=== PATIENT | male | born 1955 | race Caucasian/White ===

== ENCOUNTER 2021-07-10 10:59 | Emergency (ER) | payer MEDICARE, MEDICAID, SELFPAY ==
--- NOTE | ~2021-07-10 | XR_ITS ---
EXAMINATION: XR CHEST CLINICAL INFORMATION: Fevers and weakness COMPARISON: April 06, 2020 TECHNIQUE: AP portable view of the chest was obtained. FINDINGS: Left lung base is partially obscured due to large body habitus. There is no evidence of acute parenchymal disease, pneumothorax, or pleural effusion. Heart normal size. No evidence of pulmonary edema. 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 XR/XR chest 1V IMPRESSION: No definite acute parenchymal disease identified.
--- NOTE | ~2021-07-10 | CT_ITS ---
EXAMINATION: CT HEAD WITHOUT CONTRAST CLINICAL INFORMATION: Fall, hit head. COMPARISON: None TECHNIQUE: Contiguous axial imaging was performed from the skull base to vertex without intravenous administration of contrast. This CT examination was performed using dose optimization techniques as appropriate, variously including the following: *Automated exposure control *Adjustment of mA and/or kV according to patient size (this includes techniques or standardized protocols for targeted exams where dose is matched to indication/reason for exam; i.e. extremities or head) *Use of iterative reconstruction technique DLP: 729 mGy-cm FINDINGS: There is no evidence of acute intracranial hemorrhage or territorial infarction. No abnormal mass effect or midline shift is seen. King to white matter differentiation is well preserved. No extra-axial fluid collections are identified. The ventricles are normal in size. There is no abnormal attenuation within the brain parenchyma. The osseous structures and soft tissues are normal. The mastoid air cells and visualized portions of the paranasal sinuses are well aerated. CT/CT head/brain wo con IMPRESSION: No acute intracranial process seen.
[2021-07-10 11:05] VITALS: BP 136/82; BP 137/72; PULSE 86; PULSE 99; RESP 20; TEMP 36.6; O2SAT 96; O2SAT 98; BMI 43.2
--- NOTE | 2021-07-10 12:03 | ECG_ITS ---
Test Reason : WEAKNESS Blood Pressure : / mmHG Vent. Rate : 092 BPM Atrial Rate : 092 BPM P-R Int : 130 ms QRS Dur : 090 ms QT Int : 390 ms P-R-T Axes : 016 -12 -17 degrees QTc Int : 482 ms Normal sinus rhythm Intra-ventricular conduction delay Minimal voltage criteria for LVH, may be normal variant ( R in aVL ) Abnormal ECG When compared with ECG of 06-APR-2020 17:45, No significant change was found Referred By: Cora Deng Electronically Signed By:AYLIN RODRIGUES MD
--- NOTE | 2021-07-10 12:10 | ED.GENADULT ---
HPI - General Adult General Chief complaint: General Medical Stated complaint: malaise Time Seen by Provider: 07/10/21 12:03 Source: patient Mode of arrival: ambulatory Limitations: altered mental status and other History of Present Illness HPI narrative: 65-year-old male pmhx epilepsy, hyperparathyroidism of renal origin, anemia, GERD, orthostatic hypotension, frequent falls, cognitive decline, brought into the ambulance by EMS coming from [facility]. [facility] concerned that the patient appeared to be more confused than his baseline since this a.m. He also states that he has been complaining of nausea and lightheadedness when attempting to change positions from lying in bed to sitting up. They also state he is unable to complete tasks. A states that this started today and has been worsening throughout the day. According to the report that they sent over, he states that they have observed abdominal pain, abdominal tenderness, nausea, vomiting and diarrhea. They report no changes in his medication. He is not on anticoagulation. He is not on any other hypoglycemic medications or insulin. Patient is a full code. Patient appears to not be a great historian, he states his only complaint is he is not peeing as much as usual. He denies abdominal pain, nausea, vomiting, weakness, dizziness, diarrhea, chest pain, shortness of breath, fevers, chills. He states he is not sure why he is here and he would like to go back home. MD complaint: altered mental status Onset (ago): unknown Relieving factors: none Exacerbating factors: none Associated symptoms: denies other symptoms Treatments prior to arrival: none Related Data Home Medications Medication Instructions Recorded Confirmed albuterol sulfate 90 mcg/actuation 2 puff INHALATION Q4H PRN 07/10/21 07/10/21 aerosol inhaler aluminum-mag hydroxide-simethicone 30 ml PO Q4H PRN 07/10/21 07/10/21 200 mg-200 mg-20 mg/5 mL oral susp ascorbic acid (vitamin C) 500 mg 500 mg PO DAILY 07/10/21 07/10/21 tablet (Vitamin C) calcitriol 0.25 mcg capsule 0.25 mcg PO TUFR 07/10/21 07/10/21 clomipramine 50 mg capsule 100 mg PO BEDTIME 07/10/21 07/10/21 clozapine 50 mg tablet 50 mg PO DAILY 07/10/21 07/10/21 clozapine 50 mg tablet 150 mg PO BEDTIME 07/10/21 07/10/21 docusate sodium 100 mg tablet 200 mg PO DAILY 07/10/21 07/10/21 escitalopram oxalate 10 mg tablet 10 mg PO DAILY 07/10/21 07/10/21 fenofibrate nanocrystallized 145 1 tab PO DAILY 07/10/21 07/10/21 mg tablet ferrous sulfate 325 mg (65 mg 325 mg PO DAILY 07/10/21 07/10/21 iron) tablet fludrocortisone 0.1 mg tablet 0.2 mg PO DAILY 07/10/21 07/10/21 gabapentin 300 mg capsule 300 mg PO TID 07/10/21 07/10/21 guaifenesin 100 mg/5 mL oral liquid 200 mg PO Q4H PRN 07/10/21 07/10/21 loratadine 10 mg tablet 10 mg PO DAILY 07/10/21 07/10/21 midodrine 10 mg tablet 20 mg PO BID 07/10/21 07/10/21 milk thistle 240 mg PO TID 07/10/21 07/10/21 multivitamin 1 tab PO DAILY 07/10/21 07/10/21 omeprazole 20 mg tablet,delayed 20 mg PO DAILY 07/10/21 07/10/21 release pramipexole 1 mg tablet 1 mg PO DAILY 07/10/21 07/10/21 propranolol 10 mg tablet 10 mg PO BID 07/10/21 07/10/21 risperidone 0.25 mg tablet 0.25 mg PO DAILY 07/10/21 07/10/21 sennosides 8.6 mg tablet (senna) 8.6 mg PO DAILY PRN 07/10/21 07/10/21 Allergies Allergy/AdvReac Type Severity Reaction Status Date / Time NSAIDS (Non-Steroidal Allergy Unknown UNKNOWN Unverified 06/06/20 17:20 Anti-Inflamma [NSAIDS (NON-STEROIDAL ANTI-INFLAMMA] Review of Systems Review of Systems: Yes Unobtainable due to mental status PMFSH Past Medical History Source: old records reviewed and nursing notes reviewed Medical History TBI (traumatic brain injury) Social History Social History Alcohol intake: never Patient Tobacco Use Status: Former Tobacco user Smoked in Last 30 Days: No Use of substances other than those prescribed or required for medical reasons: No Advance Directives: Yes Advance Directives on File: Yes Advance Directives Date on File: 07/10/21 Physical Exam Vital Signs: Vital Signs: Last Vital Signs Temp 98.9 F 07/10/21 15:35 Pulse 96 07/10/21 15:35 Resp 17 07/10/21 15:35 BP 148/80 H 07/10/21 15:35 Pulse Ox 95 07/10/21 15:35 Body Mass Index 43.2 Appearance: Alert. Oriented X3. No acute distress. Head: atrauamtic, normocephalic Eyes: Pupils pinpoint equal, round and non reactive to light ENT: Pharynx normal. Neck: Normal inspection. Neck supple. CVS: Normal heart rate and rhythm. Pulses normal. Respiratory: No respiratory distress. Breath sounds normal. Abdomen: Soft and nontender. +BS x4 Skin: Skin warm and dry. Normal skin color. Normal skin turgor. No rashes. Extremities: No lower extremity edema. Neuro: Oriented to person not to time or sitution. No motor deficit. No sensory deficit. Course Course Course Narrative: 65-year-old male brought into the emergency department via EMS from [facility] with concerns of pyrexia, and altered mentation. They state that they feel as though the patient is confused and unable to follow commands. Upon physical examination patient is alert to person, but not to situation, or time. He states he feels well, and he wants to leave. His only complaint is that he is not peeing like usual. But he is unable to elaborate. Pupils are equal pain point round, and not reactive to light bilaterally. Lungs are clear to auscultation. S1 and S2 appreciated free of murmurs. Patient is afebrile at this time. He appears well, in is in no distress. Plan at this time is to obtain EKG, bladder scan, chest x-ray, BMP, CBC, liver, magnesium, UA, COVID. Reevaluation(s) Reevaluation #1: Bladder scan 249, this time there is no need for straight catheterization. Will wait to see if the patient can void on his own. After speaking to patient's provider from [facility], he states that he is worried about his head, it was reported to him that given had fallen, and hit his head. This had not been documented in the paper work which she arrived with. At this time a CT noncontrast of the head will be ordered to rule out ICH. Time: 13:00 Reevaluation #2: Patient noted to have a baseline anemia, BUN, CR, ALT,AST all elevated which appear to be chronic in nature. He is COVID negative. Chest x-ray shows no acute findings. Urine and CT are pending at this time. Patient's offers no complaints, he feels well, he appears to be in good spirits. He is resting comfortably on the exam table. Time: 13:56 Reevaluation #3: CT scan is unremarkable. Urinalysis shows no signs of infection. He did require straight catheterization, only 250 cc in the bladder but he did not urinate after few hours. Will plan to discharge back to [facility] with monitoring of urine output, and p.r.n. straight catheterization. Will give him referral to Urology for further evaluation. Will hold off on Flomax for now. Dr. Wood aware. Stable for discharge back to [facility]. Medical Decision Making Lab Data Result diagrams: 07/10/21 12:25 07/10/21 12:25 Labs: Lab Results 07/10/21 07/10/21 07/10/21 Range/Units 12:18 12:25 12:25 WBC 7.4 (4.8-10.8) X10*3/uL RBC 4.31 L (4.60-5.80) X10*6/uL Hgb 12.6 L (14.0-18.0) g/dl Hct 38.9 L (42-52) % MCV 90.3 (80-98) fL MCH 29.2 (27.0-33.0) pg MCHC 32.4 (31.0-36.0) g/dl RDW 13.2 (11.0-16.0) % Plt Count 146 L (160-400) X10*3/uL MPV 9.2 L (9.4-12.4) fL Immature Gran % (Auto) 0.3 (0.0-0.4) % Neut % (Auto) 66.2 (45-73) % Lymph % (Auto) 19.4 L (20-40) % [place] % (Auto) 9.3 (2-11) % Eos % (Auto) 4.5 H (0-4) % Baso % (Auto) 0.3 (0-2) % Lymph # (Auto) 1.4 (1.2-4.9) X10*3/uL Preble # (Auto) 0.7 (0.1-1.2) X10*3/uL Eos # (Auto) 0.3 (0.0-0.4) X10*3/uL Baso # (Auto) 0.0 (0.0-0.2) X10*3/uL Abs Immat Gran (auto) 0.02 (0.00-0.03) X10*3/uL Absolute Neuts (auto) 4.9 (2.0-8.3) X10*3/uL Absolute Nucleated RBC 0.000 (0.0-0.012) X10*3/uL Nucleated RBC % (auto) 0.0 (0.0-0.2) /100WBC Sodium 140 (135-145) mmol/L Potassium 4.2 (3.3-5.1) mmol/L Chloride 111 H (96-108) mmol/L Carbon Dioxide 23 (22-29) mmol/L Anion Gap 10 L (12-20) BUN 30 H (9-16) mg/dL Creatinine 1.84 H (0.5-1.4) mg/dL Estim Creat Clear Calc 48.2 Estimated GFR 37 Random Glucose 111 (60-115) mg/dL Calcium 8.8 (8.4-10.2) mg/dL Magnesium 1.8 (1.6-2.6) mg/dL Total Bilirubin 0.6 (0.0-1.0) mg/dL Direct Bilirubin 0.4 (0.0-0.5) mg/dL AST 53 H (5-37) U/L ALT 50 H (0-40) U/L Alkaline Phosphatase 66 (39-117) U/L Total Protein 6.4 L (6.5-8.0) g/dL Albumin 3.2 L (3.5-5.0) g/dL Urine Color Urine Appearance Urine pH (5.0-8.0) Ur Specific [place] (1.005-1.025) Urine Protein (NEG-TRACE) MG/DL Urine Glucose (UA) (NEG) MG/DL Urine Ketones (NEG) MG/DL Urine Blood (NEG) Urine Nitrite (NEG) Ur Leukocyte Esterase (NEG) COVID-19 (EVELYN) Negative (Negative) COVID-19 Clin Com See Note 07/10/21 Range/Units 15:33 WBC (4.8-10.8) X10*3/uL RBC (4.60-5.80) X10*6/uL Hgb (14.0-18.0) g/dl Hct (42-52) % MCV (80-98) fL MCH (27.0-33.0) pg MCHC (31.0-36.0) g/dl RDW (11.0-16.0) % Plt Count (160-400) X10*3/uL MPV (9.4-12.4) fL Immature Gran % (Auto) (0.0-0.4) % Neut % (Auto) (45-73) % Lymph % (Auto) (20-40) % [place] % (Auto) (2-11) % Eos % (Auto) (0-4) % Baso % (Auto) (0-2) % Lymph # (Auto) (1.2-4.9) X10*3/uL Preble # (Auto) (0.1-1.2) X10*3/uL Eos # (Auto) (0.0-0.4) X10*3/uL Baso # (Auto) (0.0-0.2) X10*3/uL Abs Immat Gran (auto) (0.00-0.03) X10*3/uL Absolute Neuts (auto) (2.0-8.3) X10*3/uL Absolute Nucleated RBC (0.0-0.012) X10*3/uL Nucleated RBC % (auto) (0.0-0.2) /100WBC Sodium (135-145) mmol/L Potassium (3.3-5.1) mmol/L Chloride (96-108) mmol/L Carbon Dioxide (22-29) mmol/L Anion Gap (12-20) BUN (9-16) mg/dL Creatinine (0.5-1.4) mg/dL Estim Creat Clear Calc Estimated GFR Random Glucose (60-115) mg/dL Calcium (8.4-10.2) mg/dL Magnesium (1.6-2.6) mg/dL Total Bilirubin (0.0-1.0) mg/dL Direct Bilirubin (0.0-0.5) mg/dL AST (5-37) U/L ALT (0-40) U/L Alkaline Phosphatase (39-117) U/L Total Protein (6.5-8.0) g/dL Albumin (3.5-5.0) g/dL Urine Color YELLOW Urine Appearance CLEAR Urine pH 6.0 (5.0-8.0) Ur Specific [place] 1.015 (1.005-1.025) Urine Protein NEG (NEG-TRACE) MG/DL Urine Glucose (UA) NEG (NEG) MG/DL Urine Ketones NEG (NEG) MG/DL Urine Blood NEG (NEG) Urine Nitrite NEG (NEG) Ur Leukocyte Esterase NEG (NEG) COVID-19 (EVELYN) (Negative) COVID-19 Clin Com ECG Data Attestation: I personally reviewed and interpreted this ECG as follows: Prior ECG tracings: available for review Interpretation: Ventricular rate of 92, OR interval normal, normal QRS, prolongued QT normal QTC. EKG shows normal sinus rhythm, with prolonged QT. No ST elevations, no T-wave inversions. No signs of acute ischemia. EKG similar to one on 04/06/2020 no acute changes. Discharge Plan Discharge Clinical Impression: Acute urinary retention Fall Qualifiers: Encounter type: initial encounter Qualified Code(s): W19.XXXA - Unspecified fall, initial encounter Patient Disposition: er [facility] Instructions: Urinary Retention in Men (ED), Fall Prevention for Older Adults (ED) Additional Instructions: Your lab workup today was unremarkable. Your urinalysis did not showing any evidence of infection Your head CT was normal. Recommend monitoring your urine output, if no urine output in 6-8 hours and you are uncomfortable, recommend straight catheterization by nursing at [facility]. Recommend following up with Urology for further evaluation - name and number below. Follow up with your doctor within 1 week If you develop new or worsening symptoms call 911 or come back to the ER for further evaluation. Prescriptions: No Action multivitamin Tablet 1 tab PO DAILY RF: 0 pramipexole 1 mg Tablet 1 mg PO DAILY RF: 0 sennosides [senna] 8.6 mg Tablet 8.6 mg PO DAILY PRN (Reason: Constipation) RF: 0 risperidone 0.25 mg Tablet 0.25 mg PO DAILY RF: 0 guaifenesin [Robitussin Chest Congestion] 100 mg/5 mL Liquid 200 mg PO Q4H PRN (Reason: Cough) RF: 0 propranolol 10 mg Tablet 10 mg PO BID RF: 0 ascorbic acid (vitamin C) [Vitamin C] 500 mg Tablet 500 mg PO DAILY RF: 0 ferrous sulfate 325 mg (65 mg iron) Tablet 325 mg PO DAILY RF: 0 gabapentin 300 mg Capsule 300 mg PO TID RF: 0 alum-mag hydroxide-simeth [Rulox] 200-200-20 mg/5 mL Suspension 30 ml PO Q4H PRN (Reason: GI UPSET) RF: 0 clomipramine 50 mg capsule 100 mg PO BEDTIME RF: 0 albuterol sulfate 90 mcg/actuation Hfa Aerosol Inhaler 2 puff INHALATION Q4H PRN (Reason: Wheezing) RF: 0 fludrocortisone 0.1 mg Tablet 0.2 mg PO DAILY RF: 0 calcitriol 0.25 mcg capsule 0.25 mcg PO TUFR RF: 0 docusate sodium 100 mg Tablet 200 mg PO DAILY RF: 0 loratadine 10 mg Tablet 10 mg PO DAILY RF: 0 midodrine 10 mg Tablet 20 mg PO BID RF: 0 escitalopram oxalate 10 mg Tablet 10 mg PO DAILY RF: 0 clozapine 50 mg tablet 150 mg PO BEDTIME RF: 0 clozapine 50 mg tablet 50 mg PO DAILY RF: 0 fenofibrate nanocrystallized 145 mg tablet 1 tab PO DAILY RF: 0 omeprazole 20 mg Tablet,Delayed Release (Dr/Ec) 20 mg PO DAILY RF: 0 milk thistle 240 mg PO TID RF: 0 Referrals: Jimeenz Castillo MD [Physician] - 2 days (urinary retention)
[2021-07-10 12:30] LABS: MANUAL DIFF FLAG NO
--- NOTE | 2021-07-10 12:32 | PC.NURSE ---
Bladder scanned for 249. PA aware. Per PA await for pt to urinate for sample. No need for straight cath at this time.
[2021-07-10 12:33] LABS: Basophils Percent Auto 0.3 % (0-2); Eosinophils Absolute Auto 0.3 X10*3/uL (0.0-0.4); Eosinophils Percent Auto 4.5 % (0-4); Hematocrit 38.9 % (42-52); Hemoglobin 12.6 g/dl (14.0-18.0); Imm Gran Abs Auto 0.02 X10*3/uL (0.00-0.03); Imm Gran Pct Auto 0.3 % (0.0-0.4); Lymphocytes Absolute Auto 1.4 X10*3/uL (1.2-4.9); Lymphocytes Percent Auto 19.4 % (20-40); Mean Corpuscular HGB Conc 32.4 g/dl (31.0-36.0); Mean Corpuscular Hemoglobin 29.2 pg (27.0-33.0); Mean Corpuscular Volume 90.3 fL (80-98); Mean Platelet Volume 9.2 fL (9.4-12.4); Monocytes Absolute Auto 0.7 X10*3/uL (0.1-1.2); Monocytes Percent Auto 9.3 % (2-11); Neutrophils Absolute Auto 4.9 X10*3/uL (2.0-8.3); Neutrophils Percent Auto 66.2 % (45-73); Platelet Count 146 X10*3/uL (160-400); Red Blood Count 4.31 X10*6/uL (4.60-5.80); Red Cell Distribution Width 13.2 % (11.0-16.0); White Blood Count 7.4 X10*3/uL (4.8-10.8)
[2021-07-10 12:51] LABS: Alanine Aminotransferase 50 U/L (0-40); Albumin Level 3.2 g/dL (3.5-5.0); Alkaline Phosphatase 66 U/L (39-117); Anion Gap 10 (12-20); Aspartate Amino Transferase 53 U/L (5-37); Bilirubin Direct 0.4 mg/dL (0.0-0.5); Bilirubin Total 0.6 mg/dL (0.0-1.0); Blood Urea Nitrogen 30 mg/dL (9-16); Calcium 8.8 mg/dL (8.4-10.2); Carbon Dioxide 23 mmol/L (22-29); Chloride 111 mmol/L (96-108); Creatinine Clr Calc Pharmacy 48.2; Estimated Glomerular Filt Rate 37; Glucose Random 111 mg/dL (60-115); Magnesium 1.8 mg/dL (1.6-2.6); Potassium 4.2 mmol/L (3.3-5.1); Sodium 140 mmol/L (135-145); Total Protein 6.4 g/dL (6.5-8.0)
[2021-07-10 12:56] LABS: COVID-19 Test Negative (Negative)
--- NOTE | 2021-07-10 13:42 | PHA.MEDREC ---
Pharmacy Consult ? Medication Reconciliation Pharmacy has completed the medication reconciliation. There are no remarkable issues for provider's attention. Patient came from [facility] with a medication list. Palak frost, AmauryD
[2021-07-10 15:35] VITALS: BP 148/80; PULSE 96; RESP 17; TEMP 37.2; O2SAT 95
[2021-07-10 15:45] LABS: Appearance Urine CLEAR; Color Urine YELLOW; Glucose Urine UA NEG (NEG); Leukocyte Esterase Urine NEG (NEG); Nitrite Urine NEG (NEG); Specific Gravity - Urine 1.015 (1.005-1.025); Urine Blood NEG (NEG); Urine Ketones NEG (NEG); Urine Protein NEG (NEG-TRACE)
== END 2021-07-10 18:21 | disposition skilled nursing facility (03) ==
PROVIDERS: Physician Assistant; Emergency Provider Emergency Medicine; PCP Hospitalist
DX: R33.9 Retention of urine, unspecified (principal); R51.9 Headache, unspecified; R50.9 Fever, unspecified; R53.1 Weakness; Z20.822 Contact with and (suspected) exposure to COVID-19; Z87.891 Personal history of nicotine dependence; Z79.899 Other long term (current) drug therapy
CPT/HCPCS: 36415; 51798; 70450; 71045; 80048; 80076; 81003; 83735; 85025; 87635; 93005; 99284; 99285

== ENCOUNTER → 2021-11-26 08:05 | Outpatient (BNVA) | payer MEDICARE, MEDICAID, SELFPAY | PROVIDERS: PCP Hospitalist; Visit Provider Urology | DX: N31.9 Neuromuscular dysfunction of bladder, unspecified (principal); N40.1 Benign prostatic hyperplasia with lower urinary tract symptoms; N13.8 Other obstructive and reflux uropathy | CPT/HCPCS: 51798; 99202 ==

== ENCOUNTER 2022-05-13 13:46 | Inpatient (IN) | payer MEDICARE, MEDICAID, SELFPAY ==
--- NOTE | ~2022-05-13 | XR_ITS ---
EXAMINATION: XR ABDOMEN COMPLETE CLINICAL INDICATION: Small bowel obstruction versus ileus COMPARISON: Previous CT of the abdomen and pelvis from yesterday and chest x-ray March 2020 TECHNIQUE: Supine and left lateral decubitus views of the abdomen and pelvis and one view chest. FINDINGS: There are dilated loops of proximal small bowel with air-fluid levels similar to yesterday's CT scan. There is stool in the colon. There is no evidence of free air. No calcifications are seen. Bony structures are unremarkable. The cardiac and mediastinal contours are stable. The lung volumes are low. There is subsegmental atelectasis at the left lung base. There is no pleural effusion or pneumothorax. There are degenerative changes of the spine. XR/XR acute abdomen series IMPRESSION: No change in small bowel dilatation and air-fluid levels from yesterday's CT scan.
--- NOTE | ~2022-05-13 | XR_ITS ---
EXAMINATION: XR CHEST CLINICAL INFORMATION: Vomiting COMPARISON: 07/10/2020 oh TECHNIQUE: Frontal view of the chest was obtained. FINDINGS: The patient is significantly rotated to the left. The lungs are well expanded. There is no focal consolidation, edema, or effusion. No pneumothorax. The cardiomediastinal silhouette is within normal limits. No acute osseous abnormality. Unchanged area of sclerosis at the proximal right humeral metaphysis. XR/XR chest 1V IMPRESSION: No acute pulmonary finding.
--- NOTE | ~2022-05-13 | CT_ITS ---
EXAMINATION: CT ABDOMEN AND PELVIS WITHOUT CONTRAST CLINICAL INFORMATION: Abdominal pain. COMPARISON: October 21, 2019 and February 26, 2015. TECHNIQUE: Multidetector volumetric imaging was performed from the superior aspect of the liver through the pubic symphysis. Sagittal and coronal reformatted images were obtained on the technologist's workstation. This CT examination was performed using dose optimization techniques as appropriate, variously including the following: *Automated exposure control *Adjustment of mA and/or kV according to patient size (this includes techniques or standardized protocols for targeted exams where dose is matched to indication/reason for exam; i.e. extremities or head) *Use of iterative reconstruction technique DLP: 1623 mGy-cm FINDINGS: Limited by motion and by lack of oral and intravenous contrast. LUNG BASES: The lung bases appear clear, with no evidence of inflammation or nodules. LIVER, GALLBLADDER, AND BILIARY TREE: The liver appears unremarkable in size, shape, and attenuation. No focal hepatic lesion or biliary ductal dilatation is appreciated. Gallbladder not visualized, suggesting prior surgical removal. PANCREAS: Unremarkable SPLEEN: Unremarkable ADRENAL GLANDS: Unremarkable KIDNEYS AND URETERS: Approximately 0.2 cm, exophytic, isodense lesion involving the mid right kidney (image 26, series 8). In 2015 this measured approximately 0.8 cm. It is not further characterized. Similar appearance of bilateral lobular renal cortical contour. The kidneys otherwise appear unremarkable in size, shape, and attenuation. No hydronephrosis, hydroureter, or calculi seen. BLADDER: Diffuse bladder wall thickening with multiple diverticula and/or cellules, unchanged. GASTROINTESTINAL TRACT: Small amount of fluid within the distal esophagus. Multiple loops of dilated small bowel containing air-fluid levels, with relative decompression of distal small bowel and colon. Exact transition point is not identified. Residual fecal contents within the colon. No free air or free intraperitoneal fluid identified. CHEST WALL/ABDOMINAL WALL: No significant hernia is appreciated. Likely imaged bilateral gynecomastia. LYMPH NODES: No evidence of adenopathy by size criteria. VASCULAR: Normal variant retroaortic left renal vein. PELVIC VISCERA: Unremarkable OSSEOUS STRUCTURES: L4 benign hemangioma. CT/CT abdomen pelvis wo con IMPRESSION: Limited study. Findings consistent with small bowel obstruction. Exact transition point is not identified. Approximately 0.2 cm, exophytic, isodense lesion involving the mid right kidney (image 26, series 8). In 2015 this measured approximately 0.8 cm. It is not further characterized. Ultrasound performed on a nonemergent basis may be of use for further evaluation if clinically indicated. Diffuse bladder wall thickening with multiple diverticula and/or cellules, unchanged. Additional findings, as above.
[2022-05-13 14:09] VITALS: BP 123/77; PULSE 114; O2SAT 97
[2022-05-13 14:24] VITALS: BP 141/88; PULSE 107; RESP 16; TEMP 37.2; O2SAT 98; BMI 37.2
--- NOTE | 2022-05-13 14:49 | ECG_ITS ---
Test Reason : VOMITING Blood Pressure : / mmHG Vent. Rate : 103 BPM Atrial Rate : 103 BPM P-R Int : 120 ms QRS Dur : 090 ms QT Int : 356 ms P-R-T Axes : 036 -16 -12 degrees QTc Int : 466 ms Sinus tachycardia Minimal voltage criteria for LVH, may be normal variant ( R in aVL ) Nonspecific T wave abnormality Abnormal ECG When compared with ECG of 10-JUL-2021 13:42, Nonspecific T wave abnormality is now Present Referred By: Michael Zimmer Electronically Signed By:MARIN GONZALES
--- NOTE | 2022-05-13 14:57 | ED.GENADULT ---
HPI - General Adult General Chief complaint: Nausea/Vomiting/Diarrhea Stated complaint: vomiting from snf Time Seen by Provider: 05/13/22 14:48 Source: patient, EMS and old records reviewed Mode of arrival: EMS Limitations: no limitations History of Present Illness HPI narrative: 66-year-old male from alf facility came in for evaluation vomiting, decreased appetite, generalized weakness with risk of falling from SNF, staff is concerned about patient refusing meals and deconditioning. Patient is confused at baseline, limited historian. Patient is complaining of abdominal pain, and vomiting, patient stated had normal bowel movement yesterday, no fever, no chills. Related Data Home Medications Medication Instructions Recorded Confirmed albuterol sulfate 90 mcg/actuation 2 puff inhalation Q4H PRN Wheezing 07/10/21 07/10/21 aerosol inhaler aluminum-mag hydroxide-simethicone 30 ml PO Q4H PRN GI UPSET 07/10/21 07/10/21 200 mg-200 mg-20 mg/5 mL oral susp ascorbic acid (vitamin C) 500 mg 500 mg PO DAILY 07/10/21 07/10/21 tablet (Vitamin C) calcitriol 0.25 mcg capsule 0.25 mcg PO TUFR 07/10/21 07/10/21 clomipramine 50 mg capsule 100 mg PO BEDTIME 07/10/21 07/10/21 clozapine 50 mg tablet 50 mg PO DAILY 07/10/21 07/10/21 clozapine 50 mg tablet 150 mg PO BEDTIME 07/10/21 07/10/21 docusate sodium 100 mg tablet 200 mg PO DAILY 07/10/21 07/10/21 escitalopram oxalate 10 mg tablet 10 mg PO DAILY 07/10/21 07/10/21 fenofibrate nanocrystallized 145 1 tab PO DAILY 07/10/21 07/10/21 mg tablet ferrous sulfate 325 mg (65 mg 325 mg PO DAILY 07/10/21 07/10/21 iron) tablet fludrocortisone 0.1 mg tablet 0.2 mg PO DAILY 07/10/21 07/10/21 gabapentin 300 mg capsule 300 mg PO TID 07/10/21 07/10/21 guaifenesin 100 mg/5 mL oral liquid 200 mg PO Q4H PRN Cough 07/10/21 07/10/21 loratadine 10 mg tablet 10 mg PO DAILY 07/10/21 07/10/21 midodrine 10 mg tablet 20 mg PO BID 07/10/21 07/10/21 milk thistle 240 mg PO TID 07/10/21 07/10/21 multivitamin 1 tab PO DAILY 07/10/21 07/10/21 omeprazole 20 mg tablet,delayed 20 mg PO DAILY 07/10/21 07/10/21 release pramipexole 1 mg tablet 1 mg PO DAILY 07/10/21 07/10/21 propranolol 10 mg tablet 10 mg PO BID 07/10/21 07/10/21 risperidone 0.25 mg tablet 0.25 mg PO DAILY 07/10/21 07/10/21 sennosides 8.6 mg tablet (senna) 8.6 mg PO DAILY PRN Constipation 07/10/21 07/10/21 bromfenac 0.075 % eye drops 0 drp ophthalmic (eye) 11/26/21 (BromSite) clozapine 100 mg tablet 100 mg PO BEDTIME 11/26/21 ketorolac 0.5 % eye drops 0 drp ophthalmic (eye) 11/26/21 loteprednol etabonate 0.5 % eye 0 drp ophthalmic (eye) 11/26/21 drops,suspension moxifloxacin 0.5 % eye drops 0 drp ophthalmic (eye) 11/26/21 prednisolone acetate 1 % eye 0 drp ophthalmic (eye) 11/26/21 drops,suspension Previous Rx's Medication Instructions Recorded alfuzosin 10 mg tablet,extended 10 mg PO DAILY 90 days #90 tabs 11/26/21 release 24 hr Allergies Allergy/AdvReac Type Severity Reaction Status Date / Time NSAIDS (Non-Steroidal Allergy Unknown UNKNOWN Verified 11/26/21 08:13 Anti-Inflamma [NSAIDS (NON-STEROIDAL ANTI-INFLAMMA] Review of Systems Review of Systems: All other systems are reviewed and are negative Constitutional: Reports as per HPI and Reports no additional constitutional complaints Eyes: Reports as per HPI and Reports no additional eye complaints Reports system reviewed and no additional complaints, except as documented Cardiovascular: Reports as per HPI and Reports no additional cardiovascular complaints Respiratory: Reports as per HPI and Reports no additional respiratory complaints Gastrointestinal: Reports as per HPI and Reports no additional gastrointestinal complaints Genitourinary: Reports no additional female genitourinary complaints Musculoskeletal: Reports no additional musculoskeletal complaints Skin/Breast: Reports system reviewed and no additional complaints, except as docu Psychiatric: Reports no additional psychiatric complaints Endocrine: Reports no additional endocrine complaints Hematologic/Lymphatic: Reports no additional hematologic/lymphatic complaints Allergic/Immunologic: Reports no additional allergic/immunologic complaints Reports system reviewed and no additional complaints, except as documented and Reports Abnormal speech present [facility] Past Medical History Medical History Anemia Attention deficit hyperactivity disorder Chronic kidney disease, stage 3 GERD (gastroesophageal reflux disease) Hematuria Hyperlipidemia Neurogenic bladder Orthostatic hypotension Schizoaffective disorder TBI (traumatic brain injury) Surgical History History of surgery Social History Social History Alcohol intake: never Patient Tobacco Use Status: Former Tobacco user Advance Directives: Yes Advance Directives on File: Yes Advance Directives Date on File: 07/10/21 Physical Exam ED Vital Signs: Vital Signs - 24 hr 05/13/22 14:24 Temperature 98.9 F Pulse Rate 107 H Respiratory Rate 16 Blood Pressure 141/88 H Pulse Oximetry 98 Oxygen Delivery Method Room Air BMI result Body Mass Index 37.2 Vital signs have been reviewed as appeared to be correct. Blood pressure normal. Heart rate normal. Respiration rate normal. Temperature normal. Oxygen saturation normal. Appearance: Alert. No acute distress. Head: Normal external exam. Normocephalic. Atraumatic. No Chang signs noted. No raccoon eyes noted Eyes: PERRLA. EOMI. Conjunctiva and sclera normal. Eyelids normal. ENT: TM's Normal. Pharynx normal. Uvula midline. Moist mucous membranes. No trismus noted. No drooling noted. No muffled voice noted. Neck: Normal inspection. Neck supple. FROM. No adenopathy. Thyroid Normal. No meningeal signs. No neck mass noted. CVS: Normal heart rate and rhythm. Heart sound normal. No murmurs noted. Pulses normal throughout. Respiratory: No respiratory distress. Painless inspiration. Breath sounds normal. No wheezes/rales/rhonchi noted. Chest nontender. No accessory muscle usage noted or decreased air movement noted. Abdomen: Soft and nontender. Bowel sounds normal in all 4 quadrants. No distention noted. No organomegaly noted. No visible injury noted. Back: No CVA tenderness. Full range of motion noted. Skin: Skin warm and dry. Normal skin color. Normal skin turgor. No rashes/lesions/lacerations noted. Extremities: No lower extremity edema. Extremities exhibit normal range of motion. Extremities nontender. Neuro:. Cranial nerve exam: II-XII are grossly intact No motor deficit. No sensory deficit. Reflexes normal. Course Course Course Narrative: 66-year-old male came in from [facility] with past medical history is cholecystectomy presented with vomiting and mild abdominal pain, patient had bowel movement yesterday, CT showed questionable SBO with no transition point. Case discussed with Dr. Bryan who will admit the patient for observation. Will hold off on NG tube placement a less patient gets worse. Medical Decision Making Lab Data Lab results reviewed: Yes I reviewed the patient's lab results. Result diagrams: 05/13/22 15:30 05/13/22 15:30 Labs: Lab Results 05/13/22 05/13/22 05/13/22 Range/Units 15:29 15:30 15:30 WBC 7.2 (4.8-10.8) X10*3/uL RBC 5.17 (4.60-5.80) X10*6/uL Hgb 14.7 (14.0-18.0) g/dl Hct 46.4 (42.0-52.0) % MCV 89.7 (80.0-98.0) fL MCH 28.4 (27.0-33.0) pg MCHC 31.7 (31.0-36.0) g/dl RDW 14.7 (11.0-16.0) % Plt Count 145 L (160-400) X10*3/uL MPV 9.1 L (9.4-12.4) fL Immature Gran % (Auto) 0.3 (0.0-0.4) % Neut % (Auto) 60.8 (45-73) % Lymph % (Auto) 28.6 (20-40) % Power % (Auto) 8.6 (2-11) % Eos % (Auto) 1.4 (0-4) % Baso % (Auto) 0.3 (0-2) % Lymph # (Auto) 2.1 (1.2-4.9) X10*3/uL Power # (Auto) 0.6 (0.1-1.2) X10*3/uL Eos # (Auto) 0.1 (0.0-0.4) X10*3/uL Baso # (Auto) 0.0 (0.0-0.2) X10*3/uL Abs Immat Gran (auto) 0.02 (0.00-0.03) X10*3/uL Absolute Neuts (auto) 4.4 (2.0-8.3) x10*3/uL Absolute Nucleated RBC 0.000 (0.0-0.012) X10*3/uL Nucleated RBC % (auto) 0.0 (0.0-0.2) /100WBC Sodium 148 H (135-145) mmol/L Potassium 4.3 (3.3-5.1) mmol/L Chloride 111 H (96-108) mmol/L Carbon Dioxide 23 (22-29) mmol/L Anion Gap 18 (12-20) BUN 43 H (9-16) mg/dL Creatinine 1.76 H (0.5-1.4) mg/dL Estim Creat Clear Calc 50.5 Estimated GFR 39 Random Glucose 101 (60-115) mg/dL Calcium 9.0 (8.4-10.2) mg/dL Total Bilirubin 0.8 (0.0-1.0) mg/dL Direct Bilirubin 0.5 (0.0-0.5) mg/dL AST 62 H (5-37) U/L ALT 70 H (0-40) U/L Alkaline Phosphatase 99 D (39-117) U/L Troponin I High Sens (<3.5-35.0) ng/L B-Natriuretic Peptide (<100) pg/mL Total Protein 6.4 L (6.5-8.0) g/dL Albumin 3.3 L (3.5-5.0) g/dL Lipase 41 (8-78) U/L Urine Color Urine Appearance Urine pH (5.0-8.0) Ur Specific [place] (1.005-1.025) Urine Protein (Neg-Trace) mg/dL Urine Glucose (UA) (Negative) mg/dL Urine Ketones (Negative) mg/dL Urine Blood (Negative) Urine Nitrite (Negative) Ur Leukocyte Esterase (Negative) Stool Occult Blood NEGATIVE (NEGATIVE) COVID-19 ([facility]) (Negative) COVID-19 Clin Com 05/13/22 05/13/22 05/13/22 Range/Units 15:30 16:25 16:25 WBC (4.8-10.8) X10*3/uL RBC (4.60-5.80) X10*6/uL Hgb (14.0-18.0) g/dl Hct (42.0-52.0) % MCV (80.0-98.0) fL MCH (27.0-33.0) pg MCHC (31.0-36.0) g/dl RDW (11.0-16.0) % Plt Count (160-400) X10*3/uL MPV (9.4-12.4) fL Immature Gran % (Auto) (0.0-0.4) % Neut % (Auto) (45-73) % Lymph % (Auto) (20-40) % Power % (Auto) (2-11) % Eos % (Auto) (0-4) % Baso % (Auto) (0-2) % Lymph # (Auto) (1.2-4.9) X10*3/uL Power # (Auto) (0.1-1.2) X10*3/uL Eos # (Auto) (0.0-0.4) X10*3/uL Baso # (Auto) (0.0-0.2) X10*3/uL Abs Immat Gran (auto) (0.00-0.03) X10*3/uL Absolute Neuts (auto) (2.0-8.3) x10*3/uL Absolute Nucleated RBC (0.0-0.012) X10*3/uL Nucleated RBC % (auto) (0.0-0.2) /100WBC Sodium (135-145) mmol/L Potassium (3.3-5.1) mmol/L Chloride (96-108) mmol/L Carbon Dioxide (22-29) mmol/L Anion Gap (12-20) BUN (9-16) mg/dL Creatinine (0.5-1.4) mg/dL Estim Creat Clear Calc Estimated GFR Random Glucose (60-115) mg/dL Calcium (8.4-10.2) mg/dL Total Bilirubin (0.0-1.0) mg/dL Direct Bilirubin (0.0-0.5) mg/dL AST (5-37) U/L ALT (0-40) U/L Alkaline Phosphatase (39-117) U/L Troponin I High Sens 5.1 (<3.5-35.0) ng/L B-Natriuretic Peptide 44 (<100) pg/mL Total Protein (6.5-8.0) g/dL Albumin (3.5-5.0) g/dL Lipase (8-78) U/L Urine Color Yellow Urine Appearance Clear Urine pH 6.0 (5.0-8.0) Ur Specific [place] 1.020 (1.005-1.025) Urine Protein Negative (Neg-Trace) mg/dL Urine Glucose (UA) Negative (Negative) mg/dL Urine Ketones Trace (Negative) mg/dL Urine Blood Negative (Negative) Urine Nitrite Negative (Negative) Ur Leukocyte Esterase Negative (Negative) Stool Occult Blood (NEGATIVE) COVID-19 ([facility]) Negative (Negative) COVID-19 Clin Com See Note Imaging Data CT scan - abdomen: Attestation: I personally reviewed and interpreted this imaging study as follows: Radiologist's impression: Findings consistent with small bowel obstruction. Exact transition point is not identified. ? Approximately 0.2 cm, exophytic, isodense lesion involving the mid right kidney (image 26, series 8). In 2015 this measured approximately 0.8 cm. It is not further characterized. Ultrasound performed on a nonemergent basis may be of use for further evaluation if clinically indicated. ? Diffuse bladder wall thickening with multiple diverticula and/or cellules, unchanged. ? Additional findings, as above. Chest x-ray: Attestation: I personally reviewed and interpreted this imaging study as follows: Radiologist's impression: No acute pulmonary finding. Discharge Plan Discharge Patient Disposition: Admitted As Inpatient Prescriptions: No Action multivitamin Tablet 1 tab PO DAILY pramipexole 1 mg Tablet 1 mg PO DAILY sennosides [senna] 8.6 mg Tablet 8.6 mg PO DAILY PRN (Reason: Constipation) risperidone 0.25 mg Tablet 0.25 mg PO DAILY guaifenesin [Robitussin Chest Congestion] 100 mg/5 mL Liquid 200 mg PO Q4H PRN (Reason: Cough) propranolol 10 mg Tablet 10 mg PO BID ascorbic acid (vitamin C) [Vitamin C] 500 mg Tablet 500 mg PO DAILY ferrous sulfate 325 mg (65 mg iron) Tablet 325 mg PO DAILY gabapentin 300 mg Capsule 300 mg PO TID alum-mag hydroxide-simeth [Rulox] 200-200-20 mg/5 mL Suspension 30 ml PO Q4H PRN (Reason: GI UPSET) clomipramine 50 mg capsule 100 mg PO BEDTIME albuterol sulfate 90 mcg/actuation Hfa Aerosol Inhaler 2 puff INHALATION Q4H PRN (Reason: Wheezing) fludrocortisone 0.1 mg Tablet 0.2 mg PO DAILY calcitriol 0.25 mcg capsule 0.25 mcg PO TUFR docusate sodium 100 mg Tablet 200 mg PO DAILY loratadine 10 mg Tablet 10 mg PO DAILY midodrine 10 mg Tablet 20 mg PO BID escitalopram oxalate 10 mg Tablet 10 mg PO DAILY clozapine 50 mg tablet 150 mg PO BEDTIME clozapine 50 mg tablet 50 mg PO DAILY fenofibrate nanocrystallized 145 mg tablet 1 tab PO DAILY omeprazole 20 mg Tablet,Delayed Release (Dr/Ec) 20 mg PO DAILY milk thistle 240 mg PO TID moxifloxacin 0.5 % drops 0 drp ophthalmic (eye) prednisolone acetate 1 % drops,suspension 0 drp ophthalmic (eye) ketorolac 0.5 % drops 0 drp ophthalmic (eye) clozapine 100 mg tablet 100 mg PO BEDTIME BromSite 0.075 % drops 0 drp ophthalmic (eye) loteprednol etabonate 0.5 % drops,suspension 0 drp ophthalmic (eye) alfuzosin 10 mg tablet extended release 24 hr 10 mg PO DAILY 90 Days Qty: 90 3RF Rx Instructions: administer after the same meal each day
[2022-05-13] MEDS: 0.9 % Sodium Chloride 1,000 ML 999 ML IV (15:31)
[2022-05-13 15:36] LABS: MANUAL DIFF FLAG NO
[2022-05-13 15:38] LABS: OBS1 NEGATIVE (NEGATIVE)
[2022-05-13 15:39] LABS: OBS Int Ctl Valid YES
[2022-05-13 15:42] LABS: Basophils Percent Auto 0.3 % (0-2); Eosinophils Absolute Auto 0.1 X10*3/uL (0.0-0.4); Eosinophils Percent Auto 1.4 % (0-4); Hematocrit 46.4 % (42.0-52.0); Hemoglobin 14.7 g/dl (14.0-18.0); Imm Gran Abs Auto 0.02 X10*3/uL (0.00-0.03); Imm Gran Pct Auto 0.3 % (0.0-0.4); Lymphocytes Absolute Auto 2.1 X10*3/uL (1.2-4.9); Lymphocytes Percent Auto 28.6 % (20-40); Mean Corpuscular HGB Conc 31.7 g/dl (31.0-36.0); Mean Corpuscular Hemoglobin 28.4 pg (27.0-33.0); Mean Corpuscular Volume 89.7 fL (80.0-98.0); Mean Platelet Volume 9.1 fL (9.4-12.4); Monocytes Absolute Auto 0.6 X10*3/uL (0.1-1.2); Monocytes Percent Auto 8.6 % (2-11); Neutrophils Absolute Auto 4.4 x10*3/uL (2.0-8.3); Neutrophils Percent Auto 60.8 % (45-73); Platelet Count 145 X10*3/uL (160-400); Red Blood Count 5.17 X10*6/uL (4.60-5.80); Red Cell Distribution Width 14.7 % (11.0-16.0); White Blood Count 7.2 X10*3/uL (4.8-10.8)
[2022-05-13 16:00] LABS: Alanine Aminotransferase 70 U/L (0-40); Albumin Level 3.3 g/dL (3.5-5.0); Alkaline Phosphatase 99 U/L (39-117); Anion Gap 18 (12-20); Aspartate Amino Transferase 62 U/L (5-37); Bilirubin Direct 0.5 mg/dL (0.0-0.5); Bilirubin Total 0.8 mg/dL (0.0-1.0); Blood Urea Nitrogen 43 mg/dL (9-16); Carbon Dioxide 23 mmol/L (22-29); Chloride 111 mmol/L (96-108); Creatinine Clr Calc Pharmacy 50.5; Estimated Glomerular Filt Rate 39; Glucose Random 101 mg/dL (60-115); Lipase 41 U/L (8-78); Potassium 4.3 mmol/L (3.3-5.1); Sodium 148 mmol/L (135-145); Total Protein 6.4 g/dL (6.5-8.0)
[2022-05-13 16:06] LABS: B Type Natriuretic Peptide 44 pg/mL (<100); Troponin-I High Sensitivity 5.1 ng/L (<3.5-35.0)
[2022-05-13 16:32] LABS: Appearance Urine Clear; Color Urine Yellow; Glucose Urine UA Negative (Negative); Leukocyte Esterase Urine Negative (Negative); Nitrite Urine Negative (Negative); Urine Blood Negative (Negative); Urine Ketones Trace mg/dL (Negative); Urine Protein Negative (Neg-Trace)
[2022-05-13 16:47] LABS: COVID-19 Test Negative (Negative)
[2022-05-13 18:11] LABS: Lactic Acid 1.4 mmol/L (0.5-2.0)
--- NOTE | 2022-05-13 20:57 | PM.HPGS ---
History of Present Illness History of Present Illness Date of Service: 05/13/22 Chief complaint: Nausea vomit Narrative: Lamin Haddad is a 66 year old male who lives in a home who comes in being brought after having some episodes of nausea and vomiting. he has had an open emiliano in the past and currently does not feel nauseated and is hungry. he had a bowel movement the day before and came in now feeling better. he is a little confused but generally holding a competent discussion Review of Systems Review of Systems: Yes all other systems are reviewed and are negative FORMERLY [facility] Past Medical History Medical History Anemia Attention deficit hyperactivity disorder Chronic kidney disease, stage 3 GERD (gastroesophageal reflux disease) Hematuria Hyperlipidemia Neurogenic bladder Orthostatic hypotension Schizoaffective disorder TBI (traumatic brain injury) Surgical History Surgical History History of surgery Social History Social History Alcohol intake: never Patient Tobacco Use Status: Former Tobacco user Advance Directives: Yes Advance Directives on File: Yes Advance Directives Date on File: 07/10/21 Meds Allergies Allergy/AdvReac Type Severity Reaction Status Date / Time NSAIDS (Non-Steroidal Allergy Unknown UNKNOWN Verified 11/26/21 08:13 Anti-Inflamma [NSAIDS (NON-STEROIDAL ANTI-INFLAMMA] Active Medications: Current Medications Famotidine (Famotidine/Pf 20 Mg/2 Ml Vial) 20 mg IVPUSH BID BRUCE Ondansetron HCl (Ondansetron Hcl 4 Mg/2 Ml Vial) 4 mg IVPUSH Q6H PRN PRN Reason: Nausea and Vomiting Sodium Chloride (0.9 % Sodium Chloride Flush 3 Ml Syringe) 3 ml IVFLUSH QSHIFT [facility] Home Medications Medication Instructions Recorded Confirmed Last Taken Type albuterol sulfate 90 mcg/actuation 2 puff inhalation Q4H PRN Wheezing 07/10/21 07/10/21 Unknown History aerosol inhaler ascorbic acid (vitamin C) 500 mg 500 mg PO DAILY 07/10/21 07/10/21 Unknown History tablet (Vitamin C) calcitriol 0.25 mcg capsule 0.25 mcg PO TUFR 07/10/21 07/10/21 Unknown History clomipramine 50 mg capsule 100 mg PO BEDTIME 07/10/21 07/10/21 Unknown History docusate sodium 100 mg tablet 200 mg PO DAILY 07/10/21 07/10/21 Unknown History escitalopram oxalate 10 mg tablet 10 mg PO DAILY 07/10/21 07/10/21 Unknown History fenofibrate nanocrystallized 145 1 tab PO DAILY 07/10/21 07/10/21 Unknown History mg tablet ferrous sulfate 325 mg (65 mg 325 mg PO DAILY 07/10/21 07/10/21 Unknown History iron) tablet fludrocortisone 0.1 mg tablet 0.2 mg PO DAILY 07/10/21 07/10/21 Unknown History gabapentin 300 mg capsule 300 mg PO TID 07/10/21 07/10/21 Unknown History guaifenesin 100 mg/5 mL oral liquid 200 mg PO Q4H PRN Cough 07/10/21 07/10/21 Unknown History loratadine 10 mg tablet 10 mg PO DAILY 07/10/21 07/10/21 Unknown History midodrine 10 mg tablet 20 mg PO BID 07/10/21 07/10/21 Unknown History milk thistle 240 mg PO TID 07/10/21 07/10/21 Unknown History multivitamin 1 tab PO DAILY 07/10/21 07/10/21 Unknown History omeprazole 20 mg tablet,delayed 20 mg PO DAILY 07/10/21 07/10/21 Unknown History release pramipexole 1 mg tablet 1 mg PO DAILY 07/10/21 07/10/21 Unknown History sennosides 8.6 mg tablet (senna) 8.6 mg PO DAILY PRN Constipation 07/10/21 07/10/21 Unknown History clozapine 100 mg tablet 100 mg PO BEDTIME 11/26/21 Unknown History bisacodyl 10 mg rectal suppository 10 mg NV DAILY PRN Constipation 05/13/22 05/13/22 Unknown History hydrocortisone 10 mg tablet 10 mg PO TID 05/13/22 05/13/22 Unknown History loperamide 2 mg tablet 4 mg PO Q6H PRN Diarrhea 05/13/22 05/13/22 Unknown History Physical Exam Vital Signs: Vital Signs: Last Vital Signs Temp 98.9 F 05/13/22 14:24 Pulse 107 H 05/13/22 14:24 Resp 16 05/13/22 14:24 BP 141/88 H 05/13/22 14:24 Pulse Ox 98 05/13/22 14:24 O2 Del Method 05/13/22 14:24 BMI result Body Mass Index 37.2 Const: General: cooperative and no acute distress Orientation/consciousness: oriented to person, oriented to place and oriented to time Resp: Auscultation: clear to auscultation bilaterally Cardio: Rhythm: regular rhythm Heart sounds: S1 normal heart sound present and S2 normal heart sound present GI: Other: abdo soft mildly distended protruberatnt normal bowel sounds no tenderness Skin: Rashes: no rashes Neuro: General: oriented to person, oriented to place and oriented to time Results Results Labs: Short CBC 05/13/22 Range/Units 15:30 WBC 7.2 (4.8-10.8) X10*3/uL Hgb 14.7 (14.0-18.0) g/dl Hct 46.4 (42.0-52.0) % Plt Count 145 L (160-400) X10*3/uL BMP 05/13/22 15:30 Sodium 148 H Potassium 4.3 Chloride 111 H Carbon Dioxide 23 BUN 43 H Creatinine 1.76 H Calcium 9.0 Liver Function 05/13/22 Range/Units 15:30 Total Bilirubin 0.8 (0.0-1.0) mg/dL Direct Bilirubin 0.5 (0.0-0.5) mg/dL AST 62 H (5-37) U/L ALT 70 H (0-40) U/L Alkaline Phosphatase 99 D (39-117) U/L Albumin 3.3 L (3.5-5.0) g/dL Urine 05/13/22 Range/Units 16:25 Urine Color Yellow Urine Appearance Clear Urine pH 6.0 (5.0-8.0) Ur Specific [place] 1.020 (1.005-1.025) Urine Protein Negative (Neg-Trace) mg/dL Urine Glucose (UA) Negative (Negative) mg/dL Abdomen CT scan report/results: report reviewed and image reviewed Assessment and Plan (1) Nausea and vomiting: Status: Acute Plan pt with ansuea and vomiting but looks good now and ct scan ? ileus - clinically not following pattern of true obstruction. plan - admit, npo and ivf and check repeat labs in am and repeat kub most likely will do well and advance diet Quality Stroke Does the patient have a stroke diagnosis?: No VTE Prior VTE?: No VTE Risk Level:: Medical - low VTE Device Contraindication: N/A - Device Ordered VTE Drug Contraindication: Treatment Not Indicated Procedures Date of Service Date of Service: 05/13/22
--- NOTE | 2022-05-13 21:07 | PHA.MEDREC ---
Addendum entered by Deanna Willis [facility]ly [facility] 05/13/22 21:08: Used list provided by Autumn Original Note: Pharmacy Consult ? Medication Reconciliation Pharmacy has completed the medication reconciliation.
[2022-05-13] MEDS: Famotidine/PF 20 MG/2 ML VIAL IVPUSH (22:55)
[2022-05-13] MEDS: 0.9 % Sodium Chloride 500 ML 100 ML IV (22:56)
[2022-05-14] VITALS: BP 141/67; PULSE 108; RESP 17; TEMP 36.6; O2SAT 96
[2022-05-14 06:36] LABS: Basophils Percent Auto 0.2 % (0-2); Eosinophils Absolute Auto 0.1 X10*3/uL (0.0-0.4); Eosinophils Percent Auto 1.8 % (0-4); Hematocrit 39.5 % (42.0-52.0); Hemoglobin 12.8 g/dl (14.0-18.0); Imm Gran Abs Auto 0.03 X10*3/uL (0.00-0.03); Imm Gran Pct Auto 0.7 % (0.0-0.4); Lymphocytes Absolute Auto 1.4 X10*3/uL (1.2-4.9); Lymphocytes Percent Auto 30.5 % (20-40); MANUAL DIFF FLAG SCAN; Mean Corpuscular HGB Conc 32.4 g/dl (31.0-36.0); Mean Corpuscular Volume 89.4 fL (80.0-98.0); Mean Platelet Volume 9.1 fL (9.4-12.4); Monocytes Absolute Auto 0.5 X10*3/uL (0.1-1.2); Monocytes Percent Auto 11.8 % (2-11); Neutrophils Absolute Auto 2.5 x10*3/uL (2.0-8.3); Platelet Count 128 X10*3/uL (160-400); Red Blood Count 4.42 X10*6/uL (4.60-5.80); Red Cell Distribution Width 14.6 % (11.0-16.0); SCAN SMEAR FLAG 1; White Blood Count 4.6 X10*3/uL (4.8-10.8)
[2022-05-14 06:51] LABS: Anion Gap 13 (12-20); Blood Urea Nitrogen 42 mg/dL (9-16); Calcium 8.3 mg/dL (8.4-10.2); Carbon Dioxide 24 mmol/L (22-29); Chloride 113 mmol/L (96-108); Creatinine Clr Calc Pharmacy 51.1; Estimated Glomerular Filt Rate 40; Glucose Fasting 89 mg/dL (60-99); Potassium 3.9 mmol/L (3.3-5.1); Sodium 146 mmol/L (135-145)
[2022-05-14 06:58] LABS: SLIDE REVIEW VERIFIED
--- NOTE | 2022-05-14 07:52 | P.PNGS_ITS ---
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 Physical Exam Vital Signs: Vital Signs: Last Vital Signs Temp 98 F 05/14/22 00:00 Pulse 108 H 05/14/22 00:00 Resp 17 05/14/22 00:00 BP 141/67 H 05/14/22 00:00 Pulse Ox 96 05/14/22 00:00 O2 Del Method 05/14/22 00:00 BMI result Body Mass Index 37.2 Const: General: comfortable and no acute distress Resp: Effort & Inspection: normal respiratory effort Cardio: Rate: regular rate GI: Palpation (GI): Soft to palpation, not firm, nontender and no guarding Objective Data Active Medications Famotidine (Famotidine/Pf 20 Mg/2 Ml Vial) 20 mg IVPUSH BID [facility] Last Admin: 05/13/22 22:55 Dose: 20 mg Documented By: JOSE ELIAS Ondansetron HCl (Ondansetron Hcl 4 Mg/2 Ml Vial) 4 mg IVPUSH Q6H PRN PRN Reason: Nausea and Vomiting Sodium Chloride (0.9 % Sodium Chloride Flush 3 Ml Syringe) 3 ml IVFLUSH QSHIFT [facility] Last Admin: 05/13/22 23:51 Dose: Not Given Documented By: GABBY Non-Admin Reason: IV Running Labs CBC & Chem 7: 05/15/22 05:43 05/15/22 05:43 Labs: Laboratory Results - last 24 hr 05/13/22 05/13/22 05/13/22 15:29 15:30 15:30 MCV 89.7 MCH 28.4 MCHC 31.7 RDW 14.7 Plt Count 145 L MPV 9.1 L Immature Gran % (Auto) 0.3 Neut % (Auto) 60.8 Lymph % (Auto) 28.6 Daniels % (Auto) 8.6 Eos % (Auto) 1.4 Baso % (Auto) 0.3 Lymph # (Auto) 2.1 Daniels # (Auto) 0.6 Eos # (Auto) 0.1 Baso # (Auto) 0.0 Abs Immat Gran (auto) 0.02 Absolute Neuts (auto) 4.4 Absolute Nucleated RBC 0.000 Nucleated RBC % (auto) 0.0 Smear Tech's Comments Anion Gap 18 Estim Creat Clear Calc 50.5 Estimated GFR 39 Random Glucose 101 Fasting Glucose Lactic Acid Calcium 9.0 Total Bilirubin 0.8 Direct Bilirubin 0.5 AST 62 H ALT 70 H Alkaline Phosphatase 99 D B-Natriuretic Peptide Total Protein 6.4 L Albumin 3.3 L Lipase 41 Urine Color Urine Appearance Urine pH Ur Specific [place] Urine Protein Urine Glucose (UA) Urine Ketones Urine Blood Urine Nitrite Ur Leukocyte Esterase Stool Occult Blood NEGATIVE COVID-19 (EVEYLN) COVID-19 Clin Com 05/13/22 05/13/22 05/13/22 15:30 16:25 16:25 MCV MCH MCHC RDW Plt Count MPV Immature Gran % (Auto) Neut % (Auto) Lymph % (Auto) Daniels % (Auto) Eos % (Auto) Baso % (Auto) Lymph # (Auto) Daniels # (Auto) Eos # (Auto) Baso # (Auto) Abs Immat Gran (auto) Absolute Neuts (auto) Absolute Nucleated RBC Nucleated RBC % (auto) Smear Tech's Comments Anion Gap Estim Creat Clear Calc Estimated GFR Random Glucose Fasting Glucose Lactic Acid Calcium Total Bilirubin Direct Bilirubin AST ALT Alkaline Phosphatase B-Natriuretic Peptide 44 Total Protein Albumin Lipase Urine Color Yellow Urine Appearance Clear Urine pH 6.0 Ur Specific [place] 1.020 Urine Protein Negative Urine Glucose (UA) Negative Urine Ketones Trace Urine Blood Negative Urine Nitrite Negative Ur Leukocyte Esterase Negative Stool Occult Blood COVID-19 (EVELYN) Negative COVID-19 Livevol Com See Note 05/13/22 05/14/22 05/14/22 17:50 06:15 06:15 MCV 89.4 MCH 29.0 MCHC 32.4 RDW 14.6 Plt Count 128 L MPV 9.1 L Immature Gran % (Auto) 0.7 H Neut % (Auto) 55.0 Lymph % (Auto) 30.5 Daniels % (Auto) 11.8 H Eos % (Auto) 1.8 Baso % (Auto) 0.2 Lymph # (Auto) 1.4 Daniels # (Auto) 0.5 Eos # (Auto) 0.1 Baso # (Auto) 0.0 Abs Immat Gran (auto) 0.03 Absolute Neuts (auto) 2.5 Absolute Nucleated RBC 0.000 Nucleated RBC % (auto) 0.0 Smear Tech's Comments VERIFIED Anion Gap 13 Estim Creat Clear Calc 51.1 Estimated GFR 40 Random Glucose Fasting Glucose 89 Lactic Acid 1.4 Calcium 8.3 L D Total Bilirubin Direct Bilirubin AST ALT Alkaline Phosphatase B-Natriuretic Peptide Total Protein Albumin Lipase Urine Color Urine Appearance Urine pH Ur Specific [place] Urine Protein Urine Glucose (UA) Urine Ketones Urine Blood Urine Nitrite Ur Leukocyte Esterase Stool Occult Blood COVID-19 (EVELYN) COVID-19 Clin Com Procedures Date of Service Date of Service: 05/14/22 Progress Note: A&P Assessment and plan (1) Nausea and vomiting: Status: Acute Assessment and Plan: PSBO versus ileus on CT scan Appears comfortable Abdomen soft, very benign Await follow-up KUB Currently NPO, will try on clear liquids depending on KUB findings Labs reviewed - BUN creatinine elevated, patient has history of chronic kidney disease stage 3 Time Spent With Patient Time: Total time spent is greater than 50% in coordination of care (as documented) at patient's floor/unit and/or counseling patient: Quality Stroke Does the patient have a stroke diagnosis?: No VTE Prior VTE?: No VTE Risk Level:: Medical - low VTE Device Contraindication: N/A - Device Ordered VTE Drug Contraindication: Treatment Not Indicated
[2022-05-14 08:09] VITALS: BP 147/83; PULSE 105; RESP 16; TEMP 37.3; O2SAT 97
[2022-05-14] MEDS: Famotidine/PF 20 MG/2 ML VIAL IVPUSH ×2 (08:13→20:43)
[2022-05-14] MEDS: 0.9 % Sodium Chloride Flush 3 ML SYRINGE IVFLUSH ×3 (08:15→20:43)
--- NOTE | 2022-05-14 11:33 | MHC.CM.PN ---
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
--- NOTE | 2022-05-14 15:57 | PC.NURSE ---
Patient remains npo. Denies pain or nausea. Abdomen soft. Frequently asking to eat. Impulsive but easy to redirect. Voiding q shift in urinal.
[2022-05-14 16:00] VITALS: BP 148/84; PULSE 102; RESP 14; TEMP 36.7; O2SAT 97
[2022-05-14] MEDS: Lactated Ringers 1,000 ML 100 ML IVCONT (16:36)
--- NOTE | 2022-05-14 17:11 | PM.EVENT ---
Event Note Date of Service: 05/14/22 Event Note: He is seen on afternoon rounds Remains comfortable He wants to eat and asking to be discharged Abdomen remained soft and benign He denies abdominal pain His follow-up x-ray however shows same pattern of small-bowel dilatation I will keep him NPO for now He has been started on IV fluids
[2022-05-14 23:57] VITALS: BP 146/75; PULSE 99; RESP 17; TEMP 36.6; O2SAT 97
[2022-05-15] MEDS: Lactated Ringers 1,000 ML 100 ML IVCONT ×2 (01:51→12:10)
[2022-05-15 06:37] LABS: Hematocrit 37.1 % (42.0-52.0); Hemoglobin 11.7 g/dl (14.0-18.0); Mean Corpuscular HGB Conc 31.5 g/dl (31.0-36.0); Mean Corpuscular Hemoglobin 28.3 pg (27.0-33.0); Mean Corpuscular Volume 89.6 fL (80.0-98.0); Mean Platelet Volume 9.4 fL (9.4-12.4); Platelet Count 126 X10*3/uL (160-400); Red Blood Count 4.14 X10*6/uL (4.60-5.80); Red Cell Distribution Width 14.6 % (11.0-16.0); White Blood Count 6.5 X10*3/uL (4.8-10.8)
[2022-05-15 07:05] LABS: Anion Gap 16 (12-20); Blood Urea Nitrogen 41 mg/dL (9-16); Calcium 8.2 mg/dL (8.4-10.2); Carbon Dioxide 21 mmol/L (22-29); Chloride 114 mmol/L (96-108); Creatinine Clr Calc Pharmacy 53.9; Estimated Glomerular Filt Rate 42; Glucose Random 74 mg/dL (60-115); Potassium 3.9 mmol/L (3.3-5.1); Sodium 147 mmol/L (135-145)
[2022-05-15 08:00] VITALS: BP 141/82; PULSE 96; RESP 18; TEMP 36.3; O2SAT 92
[2022-05-15] MEDS: Famotidine/PF 20 MG/2 ML VIAL IVPUSH ×2 (08:19→20:27)
--- NOTE | 2022-05-15 10:43 | PM.PNGS ---
Subjective Subjective Date of Service: 05/15/22 Interval history: as per nursing staff - pt has had no complaints of abdl pain no vomitting unable to tell whether pt has had flatus - he is not very reliable no events reported Physical Exam Vital Signs: Vital Signs: Last Vital Signs Temp 97.3 F 05/15/22 08:00 Pulse 96 05/15/22 08:00 Resp 18 05/15/22 08:00 BP 141/82 H 05/15/22 08:00 Pulse Ox 92 05/15/22 08:00 O2 Del Method 05/15/22 08:00 BMI result Body Mass Index 37.2 Const: General: comfortable and no acute distress Resp: Effort & Inspection: normal respiratory effort Cardio: Rate: regular rate GI: Palpation (GI): Soft to palpation, not firm, nontender and no guarding Objective Data Active Medications Famotidine (Famotidine/Pf 20 Mg/2 Ml Vial) 20 mg IVPUSH BID [facility] Last Admin: 05/15/22 08:19 Dose: 20 mg Documented By: HERMINIA Lactated Ringer's (Lr) 1,000 mls @ 100 mls/hr IVCONT .Q10H [facility] Last Admin: 05/15/22 01:51 Dose: 100 mls/hr Documented By: ANNA Ondansetron HCl (Ondansetron Hcl 4 Mg/2 Ml Vial) 4 mg IVPUSH Q6H PRN PRN Reason: Nausea and Vomiting Sodium Chloride (0.9 % Sodium Chloride Flush 3 Ml Syringe) 3 ml IVFLUSH QSHIFT [facility] Last Admin: 05/15/22 08:28 Dose: Not Given Documented By: HERMINIA Non-Admin Reason: IV Running Labs CBC & Chem 7: 05/15/22 05:43 05/15/22 05:43 Labs: Laboratory Results - last 24 hr 05/15/22 05/15/22 05:43 05:43 MCV 89.6 MCH 28.3 MCHC 31.5 RDW 14.6 Plt Count 126 L MPV 9.4 Absolute Nucleated RBC 0.000 Nucleated RBC % (auto) 0.0 Anion Gap 16 Estim Creat Clear Calc 53.9 Estimated GFR 42 Random Glucose 74 Calcium 8.2 L Procedures Date of Service Date of Service: 05/15/22 Progress Note: A&P Assessment and plan (1) Nausea and vomiting: Status: Acute Assessment and Plan: PSBO vs ileus has had no abdl pain no N/V abdl exam remains benign trial of clear liquids, advance as tolerated ambulate looks well Time Spent With Patient Time: Total time spent is greater than 50% in coordination of care (as documented) at patient's floor/unit and/or counseling patient: Quality Stroke Does the patient have a stroke diagnosis?: No VTE Prior VTE?: No VTE Risk Level:: Medical - low VTE Device Contraindication: N/A - Device Ordered VTE Drug Contraindication: Treatment Not Indicated
--- NOTE | 2022-05-15 11:32 | MHC.CM.PN ---
EMR REVIEW, PATIENT IS ON TRIAL OF CLEAR LIQUIDS, ADVANCEMENT OF DIET TOLERATED. D/C PLAN CONTINUES TO BE RETURN TO [facility]. CM WILL CONTINUE TO FOLLOW FOR DISCHARGE NEEDS. [facility] UPDATED.
--- NOTE | 2022-05-15 15:11 | PM.EVENT ---
Event Note Date of Service: 05/15/22 Event Note: seen on afternoon rounds denies abdl pain had BMs abd remains soft, nontender Will advance diet Possible DC home tomorrow if he continues to do well Exam remains very benign
--- NOTE | 2022-05-15 15:18 | P.DS_ITS ---
DS: Providers Provider Date of Service: 05/15/22 Date of admission: 05/13/22 17:56 Primary care physician: Forest Wood DO DS: Diagnosis Discharge Diagnosis (1) Nausea and vomiting: Status: Acute DS: Summary Hospital Course Hospital Course: 66-year-old male with a history of traumatic brain injury with associated cognitive deficiencies, brought to the ER on May 13, 2022 because of reported altered mental status with nausea and vomiting. He had a CAT scan of the abdomen done in the ER showing dilated small bowel loops suggestive of partial small-bowel obstruction. He did not require an NG tube but was kept NPO. Did not have any vomiting nor significant abdominal pain during this admission. He started to have good bowel movements on May 15. He was started on clear liquids and this was slowly advance. He continued to tolerate this. He continued to have very benign exam. He had good function so [facility] Time Spent with Patient Time attestation: Total time spent providing and/or coordinating discharge services: Discharge coordination time: Less than 30 minutes Quality: Safe Use of Opioids Does Pt have an Active Cancer Diagnosis on the Problem List?: No Quality: Stroke Does the patient have a stroke diagnosis?: No Physical Exam Vital Signs: Vital Signs: Last Vital Signs Temp 97.3 F 05/15/22 08:00 Pulse 96 05/15/22 08:00 Resp 18 05/15/22 08:00 BP 141/82 H 05/15/22 08:00 Pulse Ox 92 05/15/22 08:00 O2 Del Method 05/15/22 08:00 BMI result Body Mass Index 37.2 Const: Other: Has obvious cognitive deficiencies but answers some questions General: comfortable and no acute distress Orientation/consciousness: patient oriented x3 Neck: Neck: Yes no lymphadenopathy Resp: Auscultation: clear to auscultation bilaterally Cardio: Rhythm: regular rhythm GI: Palpation (GI): Soft to palpation, nontender and no guarding Neuro: General: patient oriented x3 DS: Data Data Completed and Pending Labs on day of discharge: Laboratory Results - last 24 hr 05/15/22 05/15/22 05:43 05:43 WBC 6.5 RBC 4.14 L Hgb 11.7 L Hct 37.1 L MCV 89.6 MCH 28.3 MCHC 31.5 RDW 14.6 Plt Count 126 L MPV 9.4 Absolute Nucleated RBC 0.000 Nucleated RBC % (auto) 0.0 Sodium 147 H Potassium 3.9 Chloride 114 H Carbon Dioxide 21 L Anion Gap 16 BUN 41 H Creatinine 1.65 H Estim Creat Clear Calc 53.9 Estimated GFR 42 Random Glucose 74 Calcium 8.2 L Discharge Plan Discharge Anticipated Discharge Date/Time: 05/16/22 12:50 Patient Disposition: Xfer SNF Discharge Diagnosis: Ileus versus partial small bowel obstruction Referrals: [facility] [Outside] - 1 Week Forest Wood DO [Primary Care Provider] - 1 Week Discharge Medications: Continued multivitamin Tablet 1 tab PO DAILY pramipexole 1 mg Tablet 1 mg PO DAILY sennosides [senna] 8.6 mg Tablet 8.6 mg PO DAILY PRN (Reason: Constipation) guaifenesin 100 mg/5 mL Liquid 200 mg PO Q4H PRN (Reason: Cough) ascorbic acid (vitamin C) [Vitamin C] 500 mg Tablet 500 mg PO DAILY ferrous sulfate 325 mg (65 mg iron) Tablet 325 mg PO DAILY gabapentin 300 mg Capsule 300 mg PO TID clomipramine 50 mg capsule 100 mg PO BEDTIME albuterol sulfate 90 mcg/actuation Hfa Aerosol Inhaler 2 puff INHALATION Q4H PRN (Reason: Wheezing) fludrocortisone 0.1 mg Tablet 0.2 mg PO DAILY calcitriol 0.25 mcg capsule 0.25 mcg PO TUFR docusate sodium 100 mg Tablet 200 mg PO DAILY loratadine 10 mg Tablet 10 mg PO DAILY midodrine 10 mg Tablet 20 mg PO BID escitalopram oxalate 10 mg Tablet 10 mg PO DAILY fenofibrate nanocrystallized 145 mg tablet 1 tab PO DAILY omeprazole 20 mg Tablet,Delayed Release (Dr/Ec) 20 mg PO DAILY milk thistle 240 mg PO TID loperamide 2 mg Tablet 4 mg PO Q6H PRN (Reason: Diarrhea) bisacodyl 10 mg Suppository 10 mg [place] DAILY PRN (Reason: Constipation) hydrocortisone 10 mg Tablet 10 mg PO TID clozapine 100 mg tablet 200 mg PO BEDTIME Discharge Orders: Discharge Order (Routine); Ordered 05/16/22 Ordered By: Mona Bryan Diet: Advance to usual diet Activity on Discharge: As tolerated Stand Alone Forms: Patient Portal Discharge page Care Plan Goals: Return to baseline health at facility, fu prn with surgery as an outpt otherwise should follow up with facility doctor Health Concerns: Has history of traumatic brain injury, with cognitive difficulties Plan of Treatment: Resume diet, small frequent meals Return to facility with follow-up with primary care physician Assessment: Doing well overall Discharge Date/Time: 05/16/22 14:29
[2022-05-15 16:00] VITALS: BP 124/81; PULSE 98; RESP 18; TEMP 36.1; O2SAT 96
[2022-05-15 23:34] VITALS: BP 137/78; PULSE 98; RESP 18; TEMP 36.4; O2SAT 96
[2022-05-16] MEDS: Lactated Ringers 1,000 ML 100 ML IVCONT (04:12)
[2022-05-16 08:00] VITALS: BP 136/83; PULSE 91; RESP 16; TEMP 36.3; O2SAT 96
[2022-05-16] MEDS: 0.9 % Sodium Chloride Flush 3 ML SYRINGE IVFLUSH (09:25)
[2022-05-16] MEDS: Famotidine/PF 20 MG/2 ML VIAL IVPUSH (09:25)
--- NOTE | 2022-05-16 11:41 | P.DS_ITS ---
DS: Providers Provider Date of Service: 05/16/22 Date of admission: 05/13/22 17:56 Date of discharge: 05/16/22 Primary care physician: Forest Wood DO Admitting clinician: Mona Nicole Irvin DS: Transfer Hospital Acceptance Name of Facility: back to pts preadmission facility DS: Diagnosis Discharge Diagnosis (1) Nausea and vomiting: Status: Acute DS: Summary Hospital Course Hospital Course: 66-year-old male with a history of traumatic brain injury with associated cognitive deficiencies, brought to the ER on May 13, 2022 because of reported altered mental status with nausea and vomiting. He had a CAT scan of the abdomen done in the ER showing dilated small bowel loops suggestive of partial small-bowel obstruction. He did not require an NG tube but was kept NPO. Did not have any vomiting nor significant abdominal pain during this admission. He started to have good bowel movements on May 15. He was started on clear liquids and this was slowly advance. He continued to tolerate this. He continued to have very benign exam. He had good function so he was discharged back to the shelter. Status at Discharge Cognitive/behavioral status at discharge: good Overall status at discharge: patient is back to baseline Time Spent with Patient Time attestation: Total time spent providing and/or coordinating discharge services: Discharge coordination time: Less than 30 minutes Quality: Safe Use of Opioids Does Pt have an Active Cancer Diagnosis on the Problem List?: No Quality: Stroke Does the patient have a stroke diagnosis?: No Reason for No Anti-thrombotic at DC: Not indicated Reason for No Anticoagulant at DC: Not indicated Physical Exam Vital Signs: Vital Signs: Last Vital Signs Temp 97.3 F 05/16/22 08:00 Pulse 91 05/16/22 08:00 Resp 16 05/16/22 08:00 BP 136/83 05/16/22 08:00 Pulse Ox 96 05/16/22 08:00 O2 Del Method 05/16/22 08:00 BMI result Body Mass Index 37.2 Const: General: cooperative, healthy appearing and comfortable GI: Other: soft nontender baseline distension and active bowel sounds Discharge Plan Discharge Anticipated Discharge Date/Time: 05/16/22 12:50 Patient Disposition: Xfer SNF Discharge Diagnosis: Ileus versus partial small bowel obstruction Referrals: Forest Wood DO [Primary Care Provider] - 1 Week Discharge Medications: Continued multivitamin Tablet 1 tab PO DAILY pramipexole 1 mg Tablet 1 mg PO DAILY sennosides [senna] 8.6 mg Tablet 8.6 mg PO DAILY PRN (Reason: Constipation) guaifenesin 100 mg/5 mL Liquid 200 mg PO Q4H PRN (Reason: Cough) ascorbic acid (vitamin C) [Vitamin C] 500 mg Tablet 500 mg PO DAILY ferrous sulfate 325 mg (65 mg iron) Tablet 325 mg PO DAILY gabapentin 300 mg Capsule 300 mg PO TID clomipramine 50 mg capsule 100 mg PO BEDTIME albuterol sulfate 90 mcg/actuation Hfa Aerosol Inhaler 2 puff INHALATION Q4H PRN (Reason: Wheezing) fludrocortisone 0.1 mg Tablet 0.2 mg PO DAILY calcitriol 0.25 mcg capsule 0.25 mcg PO TUFR docusate sodium 100 mg Tablet 200 mg PO DAILY loratadine 10 mg Tablet 10 mg PO DAILY midodrine 10 mg Tablet 20 mg PO BID escitalopram oxalate 10 mg Tablet 10 mg PO DAILY fenofibrate nanocrystallized 145 mg tablet 1 tab PO DAILY omeprazole 20 mg Tablet,Delayed Release (Dr/Ec) 20 mg PO DAILY milk thistle 240 mg PO TID loperamide 2 mg Tablet 4 mg PO Q6H PRN (Reason: Diarrhea) bisacodyl 10 mg Suppository 10 mg [place] DAILY PRN (Reason: Constipation) hydrocortisone 10 mg Tablet 10 mg PO TID clozapine 100 mg tablet 200 mg PO BEDTIME Discharge Orders: Discharge Order (Routine); Ordered 05/16/22 Ordered By: Mona Nicole [facility] Diet: Advance to usual diet Activity on Discharge: As tolerated Stand Alone Forms: Patient Portal Discharge page Care Plan Goals: Return to baseline health at facility, fu prn with surgery as an outpt otherwise should follow up with facility doctor Health Concerns: Has history of traumatic brain injury, with cognitive difficulties Plan of Treatment: Resume diet, small frequent meals Return to facility with follow-up with primary care physician Assessment: Doing well overall
[2022-05-16 14:27] LABS: COVID-19 Test Negative (Negative)
--- NOTE | 2022-05-16 14:27 | MHC.CM.PN ---
PT DISCHARGED BACK TO [facility] TODAY VIA BLS
== END 2022-05-16 14:29 | disposition skilled nursing facility (03) | DRG 390 ==
LOC: HO.ED 15:28 → HO.EDOVER 18:11 → HO.S3 05-14 15:18
PROVIDERS: Surgery; Admitting Provider Surgery; Emergency Provider Emergency Medicine; PCP Hospitalist; Visit Provider Surgery
DX: K56.7 Ileus, unspecified (principal); K56.600 Partial intestinal obstruction, unspecified as to cause; F90.9 Attention-deficit hyperactivity disorder, unspecified type; Z20.822 Contact with and (suspected) exposure to COVID-19; Z87.820 Personal history of traumatic brain injury; E78.5 Hyperlipidemia, unspecified; Z88.6 Allergy status to analgesic agent; Z79.899 Other long term (current) drug therapy
CPT/HCPCS: 36415; 71045; 74022; 74176; 80048; 80076; 81003; 82272; 83605; 83690; 83880; 84484; 85025; 85027; 87635; 93005; 96360; 96361; 99285

== ENCOUNTER → 2022-06-02 08:18 | Outpatient (BNVA) | payer MEDICARE, MEDICAID, SELFPAY | PROVIDERS: PCP Hospitalist; Visit Provider Urology | DX: N31.9 Neuromuscular dysfunction of bladder, unspecified (principal); R35.1 Nocturia; R39.11 Hesitancy of micturition | CPT/HCPCS: 51798; 99212 ==

== ENCOUNTER 2022-10-05 06:33 | Inpatient (IN) | payer MEDICARE, MEDICAID, SELFPAY ==
[2022-10-05] VITALS (8 sets, daily range): BP systolic 99–130; BP diastolic 53–83; PULSE 113–130; RESP 18–28; TEMP 36.1–37.9; O2SAT 85–97; BMI 36.1
--- NOTE | ~2022-10-05 | NM_ITS ---
EXAMINATION: PULMONARY PERFUSION STUDY CLINICAL INFORMATION: Hypoxia, tachycardia, elevated d-dimer, rule out PE. COMPARISON: No previous lung scan is available for comparison. A radiograph of the chest dated 10/05/2022, the same date as this lung scan, is available for comparison. TECHNIQUE: Following the intravenous injection of 3.7 mCi Tc-99m MAA, the lungs were imaged in the anterior and posterior, left and right lateral and MELINDA, LACEY, LPO, and RPO projections using a gamma scintillation camera. FINDINGS: No segmental perfusion defects are present. There is homogeneous distribution of activity bilaterally. There are no focal anatomic appearing perfusion defects present. NM/NM pul perfusion IMPRESSION: Normal radionuclide lung perfusion scan.
--- NOTE | ~2022-10-05 | XR_ITS ---
EXAMINATION: XR CHEST CLINICAL INFORMATION: Fever and hypoxia COMPARISON: 05/13/2022 TECHNIQUE: Frontal view of the chest was obtained. FINDINGS: Lungs are markedly hypoinflated. Heart size probably within normal limits given technique. There is no evidence of CHF. Left basilar atelectasis is present. No consolidation (this is also confirmed on the CT abdomen which included the lung bases today). The right lung is clear. Sclerotic lesion in the humeral metaphysis on the right may represent an old infarct. XR/XR chest 1V IMPRESSION: Hypoinflated lungs with left basilar atelectasis.
--- NOTE | ~2022-10-05 | CT_ITS ---
EXAMINATION: CT ABDOMEN AND PELVIS WITHOUT CONTRAST CLINICAL INFORMATION: Abdominal distention COMPARISON: Chest radiograph earlier today, CT abdomen pelvis 05/13/[address] scans dating back to 02/26/2015 TECHNIQUE: Multidetector volumetric imaging was performed from the superior aspect of the liver through the pubic symphysis. Sagittal and coronal reformatted images were obtained on the technologist's workstation. This CT examination was performed using dose optimization techniques as appropriate, variously including the following: *Automated exposure control *Adjustment of mA and/or kV according to patient size (this includes techniques or standardized protocols for targeted exams where dose is matched to indication/reason for exam; i.e. extremities or head) *Use of iterative reconstruction technique DLP: 920 mGy-cm FINDINGS: LUNG BASES: Bibasilar atelectasis is present. LIVER, GALLBLADDER, AND BILIARY TREE: The liver is normal in size, shape, and attenuation. No focal hepatic lesion or biliary ductal dilatation is present. The gallbladder is unremarkable with no evidence of radiopaque gallstones, gallbladder wall thickening, or obvious pericholecystic inflammatory changes. PANCREAS: Unremarkable. SPLEEN: Unremarkable. ADRENAL GLANDS: Unremarkable. KIDNEYS AND URETERS: Kidneys demonstrate multiple areas of scarring similar to prior.. Bilateral Bosniak class I renal cysts are present. There is a 2.2 cm cortical exophytic mass on the right measuring 24 Hounsfield units and I suspect is a Bosniak class II hyperattenuating cyst. These appearance of the kidneys is unchanged when compared to prior CT abdomen from 05/13/2022. The cysts are larger when compared to 02/26/2015. No hydronephrosis, hydroureter, or calculi seen. No perinephric stranding. BLADDER: The bladder is distended. No masses or stones. GASTROINTESTINAL TRACT: There is evidence of small bowel obstruction with dilatation of the proximal jejunum measuring up to 4.6 cm in maximal dimension with decompressed distal ileum measuring 1.5 cm. The precise transition point is not seen with certainty but is somewhere in the right mid abdomen. The stomach and duodenum are dilated and filled with fluid. Fluid is present in the rectosigmoid. There is no colonic inflammatory disease present. ABDOMINAL WALL: No significant hernia is appreciated. LYMPH NODES: No retroperitoneal lymphadenopathy. There are multiple small periceliac lymph nodes VASCULAR: Unremarkable. PELVIC VISCERA: The prostate and seminal vesicles are unremarkable. OSSEOUS STRUCTURES: Mild degenerative changes are present in the spine. There is a hemangioma in the L4 vertebral body CT/CT abdomen pelvis wo IV con IMPRESSION: 1. Findings are consistent with small bowel obstruction with dilated fluid-filled stomach, duodenum and proximal jejunum. A large portion of the ileum is completely decompressed. The transition point is not seen with certainty but is somewhere in the right mid abdomen. 2. Other incidental findings as described above. Fleischner guidelines were followed.
--- NOTE | ~2022-10-05 | XR_ITS ---
EXAMINATION: XR ABDOMEN KUB CLINICAL INDICATION: Nasogastric tube placement COMPARISON: CT abdomen pelvis 10/05/2022 TECHNIQUE: AP view of the abdomen. FINDINGS: New enteric tube descends the esophagus with tip in the body the stomach. Coarse interstitial opacities again seen at the lung bases. XR/XR abdomen 1V IMPRESSION: New enteric tube with tip in the body of the stomach.
--- NOTE | ~2022-10-05 | XR_ITS ---
EXAMINATION: XR ABDOMEN KUB CLINICAL INDICATION: Follow-up partial small bowel obstruction COMPARISON: 10/05/2022 TECHNIQUE: AP view of the abdomen. FINDINGS: The dilated loops of bowel seen on the prior CT scan including the campus supervisor of the CT scan are not seen on the current exam. There is gas within nondilated stomach, small bowel, and colon. An enteric tube is seen with tip in the mid to distal stomach. XR/XR KUB IMPRESSION: The dilated loops of small bowel seen on the prior CT scan are not seen on the current study. There is gaseous distention of the transverse colon in the central abdomen. No dilated loops of bowel seen.
--- NOTE | 2022-10-05 06:42 | ECG_ITS ---
Test Reason : SEPSIS Blood Pressure : / mmHG Vent. Rate : 128 BPM Atrial Rate : 128 BPM P-R Int : 120 ms QRS Dur : 086 ms QT Int : 330 ms P-R-T Axes : 029 -04 013 degrees QTc Int : 481 ms Sinus tachycardia Minimal voltage criteria for LVH, may be normal variant ( R in aVL ) Inferior infarct , age undetermined Abnormal ECG When compared with ECG of 13-MAY-2022 14:53, Nonspecific T wave abnormality no longer evident in Anterior leads Referred By: Yesika Griffni Electronically Signed By:EVY PADILLA MD
--- NOTE | 2022-10-05 07:09 | ED.AMS ---
HPI - Altered Mental Status General Chief Complaint: Altered Mental Status Stated Complaint: Fever,AMS Time Seen by Provider: 10/05/22 06:41 Source: patient, EMS and old records reviewed Mode of arrival: EMS Limitations: no limitations History of Present Illness HPI narrative: 67-year-old male from senior living facility came in for evaluation of abdominal distension, decreased p.o. intake and generalized weakness, patient also been having N/V/D. the patient also been having low-grade fever, unknown last bowel movement unknown if he is passing flatus. Patient has the above symptoms started 3 days ago. Limited historian. Related Data Home Medications Medication Instructions Recorded Confirmed albuterol sulfate 90 mcg/actuation 2 puff inhalation Q4H PRN Wheezing 07/10/21 05/13/22 aerosol inhaler ascorbic acid (vitamin C) 500 mg 500 mg PO DAILY 07/10/21 05/13/22 tablet (Vitamin C) calcitriol 0.25 mcg capsule 0.25 mcg PO TUFR 07/10/21 05/13/22 clomipramine 50 mg capsule 100 mg PO BEDTIME 07/10/21 05/13/22 docusate sodium 100 mg tablet 200 mg PO DAILY 07/10/21 05/13/22 escitalopram oxalate 10 mg tablet 10 mg PO DAILY 07/10/21 05/13/22 fenofibrate nanocrystallized 145 1 tab PO DAILY 07/10/21 05/13/22 mg tablet ferrous sulfate 325 mg (65 mg 325 mg PO DAILY 07/10/21 05/13/22 iron) tablet fludrocortisone 0.1 mg tablet 0.2 mg PO DAILY 07/10/21 05/13/22 gabapentin 300 mg capsule 300 mg PO TID 07/10/21 05/13/22 guaifenesin 100 mg/5 mL oral liquid 200 mg PO Q4H PRN Cough 07/10/21 05/13/22 loratadine 10 mg tablet 10 mg PO DAILY 07/10/21 05/13/22 midodrine 10 mg tablet 20 mg PO BID 07/10/21 05/13/22 milk thistle 240 mg PO TID 07/10/21 05/13/22 multivitamin 1 tab PO DAILY 07/10/21 05/13/22 omeprazole 20 mg tablet,delayed 20 mg PO DAILY 07/10/21 05/13/22 release pramipexole 1 mg tablet 1 mg PO DAILY 07/10/21 05/13/22 sennosides 8.6 mg tablet (senna) 8.6 mg PO DAILY PRN Constipation 07/10/21 05/13/22 clozapine 100 mg tablet 200 mg PO BEDTIME 11/26/21 05/13/22 bisacodyl 10 mg rectal suppository 10 mg MT DAILY PRN Constipation 05/13/22 05/13/22 hydrocortisone 10 mg tablet 10 mg PO TID 05/13/22 05/13/22 loperamide 2 mg tablet 4 mg PO Q6H PRN Diarrhea 05/13/22 05/13/22 clozapine 200 mg tablet 200 mg PO BEDTIME 06/02/22 omeprazole 40 mg capsule,delayed 40 mg PO BID 06/02/22 release Previous Rx's Medication Instructions Recorded alfuzosin 10 mg tablet,extended 10 mg PO DAILY 90 days #90 tabs 06/02/22 release 24 hr Allergies Allergy/AdvReac Type Severity Reaction Status Date / Time NSAIDS (Non-Steroidal Allergy Unknown UNKNOWN Verified 10/05/22 06:41 Anti-Inflamma [NSAIDS (NON-STEROIDAL ANTI-INFLAMMA] Review of Systems Review of Systems: Yes Unobtainable due to mental status PMFSH Past Medical History Medical History Anemia Attention deficit hyperactivity disorder Chronic kidney disease, stage 3 GERD (gastroesophageal reflux disease) Hematuria Hyperlipidemia Neurogenic bladder Orthostatic hypotension Schizoaffective disorder TBI (traumatic brain injury) Surgical History History of surgery Social History Social History Household Members: None Housing: [facility] Do you presently have visiting nurse or other home services: No Alcohol intake: never Patient Tobacco Use Status: Former Tobacco user Advance Directives: Yes Advance Directives on File: Yes Advance Directives Date on File: 07/10/21 service: No Current occupational status: disabled Physical Exam ED Vital Signs: Vital Signs - 24 hr 10/05/22 06:41 10/05/22 08:07 10/05/22 10:33 Temperature 100.3 F Pulse Rate 130 H 121 H 117 H Respiratory Rate 28 H 22 H 22 H Blood Pressure 106/63 105/53 L 120/69 Pulse Oximetry 85 L 91 L 91 L Oxygen Delivery Method Room Air Nasal Cannula Nasal Cannula Oxygen Flow Rate 2 2 10/05/22 11:13 Temperature Pulse Rate 117 H Respiratory Rate 21 H Blood Pressure 126/68 Pulse Oximetry 91 L Oxygen Delivery Method Nasal Cannula Oxygen Flow Rate 2 BMI result Body Mass Index 36.1 Vital signs have been reviewed as appeared to be correct. Blood pressure normal. Heart rate normal. Respiration rate normal. Temperature normal. Oxygen saturation normal. Appearance: Alert. Oriented X3. No acute distress. Head: Normal external exam. Normocephalic. Atraumatic. No Chang signs noted. No raccoon eyes noted Eyes: PERRLA. EOMI. Conjunctiva and sclera normal. Eyelids normal. ENT: TM's Normal. Pharynx normal. Uvula midline. Moist mucous membranes. No trismus noted. No drooling noted. No muffled voice noted. Neck: Normal inspection. Neck supple. FROM. No adenopathy. Thyroid Normal. No meningeal signs. No neck mass noted. CVS: Normal heart rate and rhythm. Heart sound normal. No murmurs noted. Pulses normal throughout. Respiratory: No respiratory distress. Painless inspiration. Breath sounds normal. No wheezes/rales/rhonchi noted. Chest nontender. No accessory muscle usage noted or decreased air movement noted. Abdomen: Soft and nontender. Bowel sounds normal in all 4 quadrants. No distention noted. No organomegaly noted. No visible injury noted. Back: No CVA tenderness. Full range of motion noted. Skin: Skin warm and dry. Normal skin color. Normal skin turgor. No rashes/lesions/lacerations noted. Extremities: No lower extremity edema. Extremities exhibit normal range of motion. Extremities nontender. Neuro: Oriented X 3. Cranial nerve exam: II-XII are grossly intact No motor deficit. No sensory deficit. Reflexes normal. Course Course Course Narrative: 67-year-old male came in from [facility] with abdominal pain and distension CT revealed small bowel obstruction NG tube was applied to an intermittent suction. Due to decreased p.o. intake and vomiting patient is developing JOSE L and dehydration will continue with IV hydration. Lactic acidosis due to dehydration and persistent vomiting improved after IV hydration. No source of severe infection found on the workup patient received an empirical dose of Zosyn. Reevaluation(s) Reevaluation #1: JOSE L due to dehydration and persistent vomiting and small bowel obstruction, no evidence of severe sepsis or septic shock. Time: 11:03 Medications Administered Discontinued Medications Generic Name Dose Route Start Last Admin Trade Name Freq PRN Reason Stop Dose Admin Sodium Chloride 1,000 mls @ 999 mls/hr 10/05/22 06:42 10/05/22 07:49 Ns IVCONT 10/05/22 07:42 999 mls/hr .Q1H1M ONE Administration Piperacillin Sod/Tazobactam 50 mls @ 100 mls/hr 10/05/22 07:25 10/05/22 07:49 Sod 3.375 gm/ Sodium Chloride IV 10/05/22 07:54 100 mls/hr ONCE ONE Administration Medical Decision Making Differential Diagnosis Differential Diagnoses: The differential diagnosis associated with the presentation includes (SBO, ileus, electrolyte disturbance, dehydration, acute renal failure, pneumonia.) Admission/Observation Consideration of admission/observation: Escalation of care including admission/observation considered Consult Healthcare Provider Management of the patient was discussed with: Power Switchboard Operator (Dr. Gama from surgery) Lab Data MDM Lab Attestation statement: I reviewed the patient's lab results. 10/05/22 06:57 10/05/22 06:57 Labs: Lab Results 10/05/22 10/05/22 10/05/22 Range/Units 06:57 06:57 06:57 WBC 10.7 (4.8-10.8) X10*3/uL RBC 5.12 D (4.60-5.80) X10*6/uL Hgb 14.5 D (14.0-18.0) g/dl Hct 44.8 D (42.0-52.0) % MCV 87.5 (80.0-98.0) fL MCH 28.3 (27.0-33.0) pg MCHC 32.4 (31.0-36.0) g/dl RDW 13.2 (11.0-16.0) % Plt Count 257 D (160-400) X10*3/uL MPV 9.7 (9.4-12.4) fL Immature Gran % (Auto) Cancelled Neut % (Auto) Cancelled Lymph % (Auto) Cancelled Webster % (Auto) Cancelled Eos % (Auto) Cancelled Baso % (Auto) Cancelled Lymph # (Auto) Cancelled Webster # (Auto) Cancelled Eos # (Auto) Cancelled Baso # (Auto) Cancelled Abs Immat Gran (auto) Cancelled Absolute Neuts (auto) Cancelled Absolute Nucleated RBC 0.000 (0.0-0.012) X10*3/uL Nucleated RBC % (auto) 0.0 (0.0-0.2) /100WBC Neutrophils % (Manual) 30 L (45-73) % Band Neutrophils % 24 H (3-5) % Lymphocytes % (Manual) 24 (20-40) % Monocytes % (Manual) 19 H (2-11) % Eosinophils % (Manual) 1 (0-4) % Basophils % (Manual) 1 (0-2) % Metamyelocytes % 1 % Abs Neuts (Manual) 5.8 (2.0-8.3) X10*3/uL Lymphocytes # (Manual) 2.6 (1.2-4.9) X10*3/uL Monocytes # (Manual) 2.0 H (0.1-1.2) X10*3/uL Eosinophils # (Manual) 0.1 (0.0-0.4) X10*3/uL Basophils # (Manual) 0.1 (0.0-0.2) X10*3/uL Metamyelocytes # 0.1 X10*3/uL Toxic Vacuolation PRESENT Platelet Estimate NORMAL (NORMAL) Plt Morphology Comment NORMAL RBC Morphology NORMAL PT 14.7 H (10.0-13.1) SEC INR 1.3 H (0.9-1.1) Sodium 141 (135-145) mmol/L Potassium 4.4 (3.3-5.1) mmol/L Chloride 96 (96-108) mmol/L Carbon Dioxide 27 (22-29) mmol/L Anion Gap 22 H (12-20) BUN 116 H (9-16) mg/dL Creatinine 5.90 H* (0.5-1.4) mg/dL Estim Creat Clear Calc 14.6 Estimated GFR 10 Random Glucose 126 H (60-115) mg/dL Lactic Acid (0.5-2.0) mmol/L Lactic Acid F/U @ 2Hr (0.5-2.0) mmol/L Calcium 8.5 (8.4-10.2) mg/dL Magnesium 2.3 (1.6-2.6) mg/dL Total Bilirubin 0.8 (0.0-1.0) mg/dL Direct Bilirubin 0.4 (0.0-0.5) mg/dL AST 21 (5-37) U/L ALT 39 (0-40) U/L Alkaline Phosphatase 80 (39-117) U/L Troponin I High Sens (<3.5-35.0) ng/L Total Protein 7.3 (6.5-8.0) g/dL Albumin 3.4 L (3.5-5.0) g/dL Lipase 9 (8-78) U/L Urine Color Urine Appearance Urine pH (5.0-9.0) Ur Specific Gore (1.005-1.025) Urine Protein (Neg-Trace) mg/dL Urine Glucose (UA) (Negative) mg/dL Urine Ketones (Negative) mg/dL Urine Blood (Negative) Urine Nitrite (Negative) Ur Leukocyte Esterase (Negative) Urine RBC (0-2) /HPF Urine WBC (0-5) /HPF Ur Squamous Epith Cells (0-2) /HPF Urine Bacteria (None Seen) Hyaline Casts (0-2) /LPF COVID-19 (EVELYN) (Negative) COVID-19 Clin Com 10/05/22 10/05/22 10/05/22 Range/Units 06:57 06:57 06:57 WBC (4.8-10.8) X10*3/uL RBC (4.60-5.80) X10*6/uL Hgb (14.0-18.0) g/dl Hct (42.0-52.0) % MCV (80.0-98.0) fL MCH (27.0-33.0) pg MCHC (31.0-36.0) g/dl RDW (11.0-16.0) % Plt Count (160-400) X10*3/uL MPV (9.4-12.4) fL Immature Gran % (Auto) Neut % (Auto) Lymph % (Auto) Webster % (Auto) Eos % (Auto) Baso % (Auto) Lymph # (Auto) Webster # (Auto) Eos # (Auto) Baso # (Auto) Abs Immat Gran (auto) Absolute Neuts (auto) Absolute Nucleated RBC (0.0-0.012) X10*3/uL Nucleated RBC % (auto) (0.0-0.2) /100WBC Neutrophils % (Manual) (45-73) % Band Neutrophils % (3-5) % Lymphocytes % (Manual) (20-40) % Monocytes % (Manual) (2-11) % Eosinophils % (Manual) (0-4) % Basophils % (Manual) (0-2) % Metamyelocytes % % Abs Neuts (Manual) (2.0-8.3) X10*3/uL Lymphocytes # (Manual) (1.2-4.9) X10*3/uL Monocytes # (Manual) (0.1-1.2) X10*3/uL Eosinophils # (Manual) (0.0-0.4) X10*3/uL Basophils # (Manual) (0.0-0.2) X10*3/uL Metamyelocytes # X10*3/uL Toxic Vacuolation Platelet Estimate (NORMAL) Plt Morphology Comment RBC Morphology PT (10.0-13.1) SEC INR (0.9-1.1) Sodium (135-145) mmol/L Potassium (3.3-5.1) mmol/L Chloride (96-108) mmol/L Carbon Dioxide (22-29) mmol/L Anion Gap (12-20) BUN (9-16) mg/dL Creatinine (0.5-1.4) mg/dL Estim Creat Clear Calc Estimated GFR Random Glucose (60-115) mg/dL Lactic Acid 2.3 H* (0.5-2.0) mmol/L Lactic Acid F/U @ 2Hr (0.5-2.0) mmol/L Calcium (8.4-10.2) mg/dL Magnesium (1.6-2.6) mg/dL Total Bilirubin (0.0-1.0) mg/dL Direct Bilirubin (0.0-0.5) mg/dL AST (5-37) U/L ALT (0-40) U/L Alkaline Phosphatase (39-117) U/L Troponin I High Sens 13.8 (<3.5-35.0) ng/L Total Protein (6.5-8.0) g/dL Albumin (3.5-5.0) g/dL Lipase (8-78) U/L Urine Color Urine Appearance Urine pH (5.0-9.0) Ur Specific Gore (1.005-1.025) Urine Protein (Neg-Trace) mg/dL Urine Glucose (UA) (Negative) mg/dL Urine Ketones (Negative) mg/dL Urine Blood (Negative) Urine Nitrite (Negative) Ur Leukocyte Esterase (Negative) Urine RBC (0-2) /HPF Urine WBC (0-5) /HPF Ur Squamous Epith Cells (0-2) /HPF Urine Bacteria (None Seen) Hyaline Casts (0-2) /LPF COVID-19 (EVELYN) Negative (Negative) COVID-19 Clin Com See Note 10/05/22 10/05/22 Range/Units 09:54 10:32 WBC (4.8-10.8) X10*3/uL RBC (4.60-5.80) X10*6/uL Hgb (14.0-18.0) g/dl Hct (42.0-52.0) % MCV (80.0-98.0) fL MCH (27.0-33.0) pg MCHC (31.0-36.0) g/dl RDW (11.0-16.0) % Plt Count (160-400) X10*3/uL MPV (9.4-12.4) fL Immature Gran % (Auto) Neut % (Auto) Lymph % (Auto) Webster % (Auto) Eos % (Auto) Baso % (Auto) Lymph # (Auto) Webster # (Auto) Eos # (Auto) Baso # (Auto) Abs Immat Gran (auto) Absolute Neuts (auto) Absolute Nucleated RBC (0.0-0.012) X10*3/uL Nucleated RBC % (auto) (0.0-0.2) /100WBC Neutrophils % (Manual) (45-73) % Band Neutrophils % (3-5) % Lymphocytes % (Manual) (20-40) % Monocytes % (Manual) (2-11) % Eosinophils % (Manual) (0-4) % Basophils % (Manual) (0-2) % Metamyelocytes % % Abs Neuts (Manual) (2.0-8.3) X10*3/uL Lymphocytes # (Manual) (1.2-4.9) X10*3/uL Monocytes # (Manual) (0.1-1.2) X10*3/uL Eosinophils # (Manual) (0.0-0.4) X10*3/uL Basophils # (Manual) (0.0-0.2) X10*3/uL Metamyelocytes # X10*3/uL Toxic Vacuolation Platelet Estimate (NORMAL) Plt Morphology Comment RBC Morphology PT (10.0-13.1) SEC INR (0.9-1.1) Sodium (135-145) mmol/L Potassium (3.3-5.1) mmol/L Chloride (96-108) mmol/L Carbon Dioxide (22-29) mmol/L Anion Gap (12-20) BUN (9-16) mg/dL Creatinine (0.5-1.4) mg/dL Estim Creat Clear Calc Estimated GFR Random Glucose (60-115) mg/dL Lactic Acid (0.5-2.0) mmol/L Lactic Acid F/U @ 2Hr 1.4 (0.5-2.0) mmol/L Calcium (8.4-10.2) mg/dL Magnesium (1.6-2.6) mg/dL Total Bilirubin (0.0-1.0) mg/dL Direct Bilirubin (0.0-0.5) mg/dL AST (5-37) U/L ALT (0-40) U/L Alkaline Phosphatase (39-117) U/L Troponin I High Sens (<3.5-35.0) ng/L Total Protein (6.5-8.0) g/dL Albumin (3.5-5.0) g/dL Lipase (8-78) U/L Urine Color Dark Yellow Urine Appearance Clear Urine pH 5.0 (5.0-9.0) Ur Specific Gore 1.020 (1.005-1.025) Urine Protein Negative (Neg-Trace) mg/dL Urine Glucose (UA) Negative (Negative) mg/dL Urine Ketones Trace (Negative) mg/dL Urine Blood Negative (Negative) Urine Nitrite Negative (Negative) Ur Leukocyte Esterase Trace H (Negative) Urine RBC 3-5 H (0-2) /HPF Urine WBC 0-5 (0-5) /HPF Ur Squamous Epith Cells 3-5 (0-2) /HPF Urine Bacteria None Seen (None Seen) Hyaline Casts 0-2 (0-2) /LPF COVID-19 ([facility]ELYN) (Negative) COVID-19 Clin Com Independent Interpretation I performed an independent interpretation of an: Plain X-Ray (Chest: No acute pathology.) and CT Scan (SBO) Interpretation: . Radiology Impression Discussion of test interpretation with radiology: I have reviewed the radiologist's reading. Critical Care Time Critical Care Time Critical Care Time: Yes Total Critical Care Time: 60 Attestation: I spent 60 minutes providing critical care service to the patient, this including time spent at the bedside to evaluate the patient, reassess the patient, monitoring vital signs, review labs, and radiographic studies, counseling the patient/family, discussing the case with consultants, disposition the patient. Discharge Plan Discharge Clinical Impression: SBO (small bowel obstruction), JOSE L (acute kidney injury) Patient Disposition: Admitted As Inpatient
[2022-10-05 07:17] LABS: Hematocrit 44.8 % (42.0-52.0); Hemoglobin 14.5 g/dl (14.0-18.0); Mean Corpuscular HGB Conc 32.4 g/dl (31.0-36.0); Mean Corpuscular Hemoglobin 28.3 pg (27.0-33.0); Mean Corpuscular Volume 87.5 fL (80.0-98.0); Mean Platelet Volume 9.7 fL (9.4-12.4); Platelet Count 257 X10*3/uL (160-400); Red Blood Count 5.12 X10*6/uL (4.60-5.80); Red Cell Distribution Width 13.2 % (11.0-16.0); WBC ABN SCTR FOR CBC 1
[2022-10-05 07:25] LABS: Lactic Acid 2.3 mmol/L (0.5-2.0)
[2022-10-05 07:33] LABS: COVID-19 Test Negative (Negative); IDNOW Serial# BCCEAD1C; Troponin-I High Sensitivity 13.8 ng/L (<3.5-35.0)
[2022-10-05 07:36] LABS: Alanine Aminotransferase 39 U/L (0-40); Albumin Level 3.4 g/dL (3.5-5.0); Alkaline Phosphatase 80 U/L (39-117); Aspartate Amino Transferase 21 U/L (5-37); Bilirubin Direct 0.4 mg/dL (0.0-0.5); Bilirubin Total 0.8 mg/dL (0.0-1.0); Blood Urea Nitrogen 116 mg/dL (9-16); Calcium 8.5 mg/dL (8.4-10.2); Creatinine Clr Calc Pharmacy 14.6; Estimated Glomerular Filt Rate 10; Glucose Random 126 mg/dL (60-115); Lipase 9 U/L (8-78); Magnesium 2.3 mg/dL (1.6-2.6); Total Protein 7.3 g/dL (6.5-8.0)
[2022-10-05 07:45] LABS: Anion Gap 22 (12-20); Carbon Dioxide 27 mmol/L (22-29); Chloride 96 mmol/L (96-108); Potassium 4.4 mmol/L (3.3-5.1); Sodium 141 mmol/L (135-145)
[2022-10-05] MEDS: 0.9 % Sodium Chloride 1,000 ML 999 ML IVCONT (07:49)
[2022-10-05] MEDS: Piperacillin Sodium/Tazobactam 3.375 GM in 0.9 % Sodium Chloride 50 ML IV (07:49)
[2022-10-05 07:56] LABS: INTERNATIONAL NORM RATIO 1.3 (0.9-1.1); Prothrombin Time 14.7 SEC (10.0-13.1)
[2022-10-05 08:18] LABS: Basophils Percent Manual 1 % (0-2); Eosinophils Percent Manual 1 % (0-4); Lymphocytes Percent Manual 24 % (20-40); Metamyelocytes Percent 1 %; Monocytes Percent Manual 19 % (2-11); Neutrophils Percent Manual 30 % (45-73)
[2022-10-05 08:22] LABS: Band Neutrophils Percent 24 % (3-5)
[2022-10-05 08:24] LABS: Platelet Estimate NORMAL (NORMAL); Platelet Morphology Comment NORMAL; RBC Morphology NORMAL; Toxic Vacuolation PRESENT
--- NOTE | 2022-10-05 08:38 | PC.NURSE ---
Pt had a incontinence pull up. I placed a [place] Cath to obtain a urine sample.
[2022-10-05 09:06] LABS: Reflex Lactate? Lactic Acid Added
[2022-10-05 09:22] LABS: Basophils Abs Manual 0.1 X10*3/uL (0.0-0.2); Eosinophils Absolute Manual 0.1 X10*3/uL (0.0-0.4); Lymphocytes Absolute Manual 2.6 X10*3/uL (1.2-4.9); Metamyelocytes Absolute 0.1 X10*3/uL; Neutrophils Absolute Manual 5.8 X10*3/uL (2.0-8.3); White Blood Count 10.7 X10*3/uL (4.8-10.8)
[2022-10-05 10:04] LABS: Appearance Urine Clear; Color Urine Dark Yellow; Glucose Urine UA Negative (Negative); Leukocyte Esterase Urine Trace (Negative); Nitrite Urine Negative (Negative); UMIC TRIGGER UACC YES; Urine Blood Negative (Negative); Urine Ketones Trace mg/dL (Negative); Urine Protein Negative (Neg-Trace)
[2022-10-05 10:06] LABS: Bacteria Urine None Seen (None Seen); Hyaline Casts Urine 0-2 /LPF (0-2); WBC Urine 0-5 /HPF (0-5)
[2022-10-05 10:52] LABS: ~Lactic Acid-LAB USE ONLY 1.4 mmol/L (0.5-2.0)
--- NOTE | 2022-10-05 12:12 | PM.CNGS ---
History of Present Illness Consult details Consult date: 10/05/22 Narrative: 67-year-old male brought to emergency room from the nursing facility because of poor oral intake for several days. He is not a very good historian. Based on the health records, it appears that he also had some nausea or vomiting. The ER notes state that he also some abdominal distension. Because of this, a CT scan was done and this suggested partial small-bowel obstruction versus ileus so I was consulted. I had attempted to get a more detailed history from the patient but currently, he does not provide additional information although he is awake and answers simple questions. He has a history of traumatic brain injury. Review of Systems Review of Systems: Source of this review is ER notes Constitutional: Constitutional: Reports fever(s) Cardiovascular: Cardiovascular: Denies chest pain at rest Respiratory: Respiratory: Denies cough Gastrointestinal: Gastrointestinal: Reports nausea and Reports vomiting Genitourinary: Genitourinary: Denies difficulty urinating PMFSH Past Medical History Medical History (Updated 10/05/22 @ 14:10 by EILZABETH Hudson) Anemia Attention deficit hyperactivity disorder Chronic kidney disease, stage 3 GERD (gastroesophageal reflux disease) Hematuria Hyperlipidemia Neurogenic bladder Orthostatic hypotension Partial small bowel obstruction Schizoaffective disorder TBI (traumatic brain injury) Surgical History Surgical History History of surgery Social History Social History Household Members: Other Housing: Assisted Living Facility Do you presently have visiting nurse or other home services: Yes Alcohol intake: never Patient Tobacco Use Status: Former Tobacco user Tobacco use type: Cigarette and Cigar Advance Directives Date on File: 07/10/21 service: No Current occupational status: disabled Meds Allergies Allergy/AdvReac Type Severity Reaction Status Date / Time NSAIDS (Non-Steroidal Allergy Unknown UNKNOWN Verified 10/05/22 06:41 Anti-Inflamma [NSAIDS (NON-STEROIDAL ANTI-INFLAMMA] Active Medications: Current Medications Acetaminophen (Acetaminophen 325 Mg Tablet) 650 mg PO Q6H PRN PRN Reason: Pain, Mild, fever Heparin Sodium (Porcine) (Heparin Sodium,Porcine 5,000 Unit/Ml Vial) 5,000 unit SUBCUT Q12H BRUCE Ondansetron HCl (Ondansetron Hcl 4 Mg/2 Ml Vial) 4 mg IVPUSH Q8H PRN PRN Reason: Nausea and Vomiting Pharmacy Consult (Consult Rx Perform Med Rec) 1 each MISCELLANE ONCE PRN PRN Reason: Consult order Sodium Chloride (0.9 % Sodium Chloride Flush 3 Ml Syringe) [facility] Medication Instructions Recorded Confirmed Last Taken Type albuterol sulfate 90 mcg/actuation 2 puff inhalation Q4H PRN Wheezing 07/10/21 10/05/22 Unknown History aerosol inhaler ascorbic acid (vitamin C) 500 mg 500 mg PO DAILY 07/10/21 10/05/22 10/04/22 History tablet (Vitamin C) calcitriol 0.25 mcg capsule 0.25 mcg PO TUFR 07/10/21 10/05/22 10/02/22 History clomipramine 50 mg capsule 100 mg PO BEDTIME ANXIETY 07/10/21 10/05/22 10/04/22 History docusate sodium 100 mg tablet 200 mg PO DAILY 07/10/21 10/05/22 10/04/22 History escitalopram oxalate 10 mg tablet 10 mg PO DAILY 07/10/21 10/05/22 10/04/22 History fenofibrate nanocrystallized 145 145 mg PO DAILY 07/10/21 10/05/22 10/04/22 History mg tablet ferrous sulfate 325 mg (65 mg 325 mg PO DAILY 07/10/21 10/05/22 10/04/22 History iron) tablet fludrocortisone 0.1 mg tablet 0.2 mg PO DAILY 07/10/21 10/05/22 10/04/22 History gabapentin 300 mg capsule 300 mg PO TID 07/10/21 10/05/22 10/04/22 History guaifenesin 100 mg/5 mL oral liquid 200 mg PO Q4H PRN Cough 07/10/21 10/05/22 Unknown History loratadine 10 mg tablet 10 mg PO DAILY PRN Allergy Symptoms 07/10/21 10/05/22 Unknown History midodrine 10 mg tablet 20 mg PO BID 07/10/21 10/05/22 10/04/22 History milk thistle 240 mg PO TID 07/10/21 10/05/22 10/04/22 History multivitamin 1 tab PO DAILY 07/10/21 10/05/22 10/04/22 History pramipexole 1 mg tablet 1 mg PO DAILY 07/10/21 10/05/22 10/04/22 History sennosides 8.6 mg tablet (senna) 8.6 mg PO DAILY PRN Constipation 07/10/21 10/05/22 Unknown History bisacodyl 10 mg rectal suppository 10 mg UT DAILY PRN Constipation 05/13/22 10/05/22 Unknown History hydrocortisone 10 mg tablet 10 mg PO TID 05/13/22 10/05/22 10/04/22 History loperamide 2 mg tablet 4 mg PO Q6H PRN Diarrhea 05/13/22 10/05/22 Unknown History clozapine 200 mg tablet 200 mg PO BEDTIME 06/02/22 10/05/22 10/04/22 History oseltamivir 30 mg capsule (Tamiflu) 30 mg PO DAILY PROPHYLAXIS 10/05/22 10/05/22 10/04/22 History sofosbuvir 400 mg-velpatasvir 100 1 tab PO DAILY 10/05/22 10/05/22 10/04/22 History mg tablet (Epclusa) Physical Exam Vital Signs: Vital Signs: Last Vital Signs Temp 98.1 F 10/05/22 11:13 Pulse 117 H 10/05/22 11:13 Resp 21 H 10/05/22 11:13 BP 126/68 10/05/22 11:13 Pulse Ox 91 L 10/05/22 11:13 O2 Del Method 10/05/22 11:13 O2 Flow Rate 2 10/05/22 11:13 BMI result Body Mass Index 36.1 Const: General: comfortable and no acute distress Resp: Effort & Inspection: normal respiratory effort Cardio: Rate: regular rate GI: Other: soft, although protuberant and mildly distended with no guarding or rebound, no obvious tenderness at this time Results Labs 10/05/22 06:57 10/05/22 06:57 Labs: Abnormal lab results 10/05/22 10/05/22 10/05/22 Range/Units 06:57 06:57 06:57 Neutrophils % (Manual) 30 L (45-73) % Band Neutrophils % 24 H (3-5) % Monocytes % (Manual) 19 H (2-11) % Monocytes # (Manual) 2.0 H (0.1-1.2) X10*3/uL PT 14.7 H (10.0-13.1) SEC INR 1.3 H (0.9-1.1) Anion Gap 22 H (12-20) BUN 116 H (9-16) mg/dL Creatinine 5.90 H* (0.5-1.4) mg/dL Random Glucose 126 H (60-115) mg/dL Lactic Acid (0.5-2.0) mmol/L Albumin 3.4 L (3.5-5.0) g/dL Ur Leukocyte Esterase (Negative) Urine RBC (0-2) /HPF 10/05/22 10/05/22 Range/Units 06:57 09:54 Neutrophils % (Manual) (45-73) % Band Neutrophils % (3-5) % Monocytes % (Manual) (2-11) % Monocytes # (Manual) (0.1-1.2) X10*3/uL PT (10.0-13.1) SEC INR (0.9-1.1) Anion Gap (12-20) BUN (9-16) mg/dL Creatinine (0.5-1.4) mg/dL Random Glucose (60-115) mg/dL Lactic Acid 2.3 H* (0.5-2.0) mmol/L Albumin (3.5-5.0) g/dL Ur Leukocyte Esterase Trace H (Negative) Urine RBC 3-5 H (0-2) /HPF Short CBC 10/05/22 Range/Units 06:57 WBC 10.7 (4.8-10.8) X10*3/uL Hgb 14.5 D (14.0-18.0) g/dl Hct 44.8 D (42.0-52.0) % Plt Count 257 D (160-400) X10*3/uL BMP 10/05/22 06:57 Sodium 141 Potassium 4.4 Chloride 96 Carbon Dioxide 27 BUN 116 H Creatinine 5.90 H* Calcium 8.5 Liver Function 10/05/22 Range/Units 06:57 Total Bilirubin 0.8 (0.0-1.0) mg/dL Direct Bilirubin 0.4 (0.0-0.5) mg/dL AST 21 (5-37) U/L ALT 39 (0-40) U/L Alkaline Phosphatase 80 (39-117) U/L Albumin 3.4 L (3.5-5.0) g/dL Urine 10/05/22 Range/Units 09:54 Urine Color Dark Yellow Urine Appearance Clear Urine pH 5.0 (5.0-9.0) Ur Specific [place] 1.020 (1.005-1.025) Urine Protein Negative (Neg-Trace) mg/dL Urine Glucose (UA) Negative (Negative) mg/dL All other labs normal. Laboratory Results WBC 10.7 X10*3/uL (4.8-10.8) 10/05/22 06:57 RBC 5.12 X10*6/uL (4.60-5.80) D 10/05/22 06:57 Hgb 14.5 g/dl (14.0-18.0) D 10/05/22 06:57 Hct 44.8 % (42.0-52.0) D 10/05/22 06:57 MCV 87.5 fL (80.0-98.0) 10/05/22 06:57 MCH 28.3 pg (27.0-33.0) 10/05/22 06:57 MCHC 32.4 g/dl (31.0-36.0) 10/05/22 06:57 RDW 13.2 % (11.0-16.0) 10/05/22 06:57 Plt Count 257 X10*3/uL (160-400) D 10/05/22 06:57 MPV 9.7 fL (9.4-12.4) 10/05/22 06:57 Immature Gran % (Auto) Cancelled 10/05/22 06:57 Neut % (Auto) Cancelled 10/05/22 06:57 Lymph % (Auto) Cancelled 10/05/22 06:57 [place] % (Auto) Cancelled 10/05/22 06:57 Eos % (Auto) Cancelled 10/05/22 06:57 Baso % (Auto) Cancelled 10/05/22 06:57 Lymph # (Auto) Cancelled 10/05/22 06:57 [place] # (Auto) Cancelled 10/05/22 06:57 Eos # (Auto) Cancelled 10/05/22 06:57 Baso # (Auto) Cancelled 10/05/22 06:57 Abs Immat Gran (auto) Cancelled 10/05/22 06:57 Absolute Neuts (auto) Cancelled 10/05/22 06:57 Absolute Nucleated RBC 0.000 X10*3/uL (0.0-0.012) 10/05/22 06:57 Nucleated RBC % (auto) 0.0 /100WBC (0.0-0.2) 10/05/22 06:57 Neutrophils % (Manual) 30 % (45-73) L 10/05/22 06:57 Band Neutrophils % 24 % (3-5) H 10/05/22 06:57 Lymphocytes % (Manual) 24 % (20-40) 10/05/22 06:57 Monocytes % (Manual) 19 % (2-11) H 10/05/22 06:57 Eosinophils % (Manual) 1 % (0-4) 10/05/22 06:57 Basophils % (Manual) 1 % (0-2) 10/05/22 06:57 Metamyelocytes % 1 % 10/05/22 06:57 Abs Neuts (Manual) 5.8 X10*3/uL (2.0-8.3) 10/05/22 06:57 Lymphocytes # (Manual) 2.6 X10*3/uL (1.2-4.9) 10/05/22 06:57 Monocytes # (Manual) 2.0 X10*3/uL (0.1-1.2) H 10/05/22 06:57 Eosinophils # (Manual) 0.1 X10*3/uL (0.0-0.4) 10/05/22 06:57 Basophils # (Manual) 0.1 X10*3/uL (0.0-0.2) 10/05/22 06:57 Metamyelocytes # 0.1 X10*3/uL 10/05/22 06:57 Toxic Vacuolation PRESENT 10/05/22 06:57 Platelet Estimate NORMAL (NORMAL) 10/05/22 06:57 Plt Morphology Comment NORMAL 10/05/22 06:57 RBC Morphology NORMAL 10/05/22 06:57 PT 14.7 SEC (10.0-13.1) H 10/05/22 06:57 INR 1.3 (0.9-1.1) H 10/05/22 06:57 Sodium 141 mmol/L (135-145) 10/05/22 06:57 Potassium 4.4 mmol/L (3.3-5.1) 10/05/22 06:57 Chloride 96 mmol/L (96-108) 10/05/22 06:57 Carbon Dioxide 27 mmol/L (22-29) 10/05/22 06:57 Anion Gap 22 (12-20) H 10/05/22 06:57 BUN 116 mg/dL (9-16) H 10/05/22 06:57 Creatinine 5.90 mg/dL (0.5-1.4) H* 10/05/22 06:57 Estim Creat Clear Calc 14.6 10/05/22 06:57 Estimated GFR 10 10/05/22 06:57 Random Glucose 126 mg/dL (60-115) H 10/05/22 06:57 Lactic Acid 2.3 mmol/L (0.5-2.0) H* 10/05/22 06:57 Lactic Acid F/U @ 2Hr 1.4 mmol/L (0.5-2.0) 10/05/22 10:32 Calcium 8.5 mg/dL (8.4-10.2) 10/05/22 06:57 Magnesium 2.3 mg/dL (1.6-2.6) 10/05/22 06:57 Total Bilirubin 0.8 mg/dL (0.0-1.0) 10/05/22 06:57 Direct Bilirubin 0.4 mg/dL (0.0-0.5) 10/05/22 06:57 AST 21 U/L (5-37) 10/05/22 06:57 ALT 39 U/L (0-40) 10/05/22 06:57 Alkaline Phosphatase 80 U/L (39-117) 10/05/22 06:57 Troponin I High Sens 13.8 ng/L (<3.5-35.0) 10/05/22 06:57 Total Protein 7.3 g/dL (6.5-8.0) 10/05/22 06:57 Albumin 3.4 g/dL (3.5-5.0) L 10/05/22 06:57 Lipase 9 U/L (8-78) 10/05/22 06:57 Urine Color Dark Yellow 10/05/22 09:54 Urine Appearance Clear 10/05/22 09:54 Urine pH 5.0 (5.0-9.0) 10/05/22 09:54 Ur Specific [place] 1.020 (1.005-1.025) 10/05/22 09:54 Urine Protein Negative mg/dL (Neg-Trace) 10/05/22 09:54 Urine Glucose (UA) Negative mg/dL (Negative) 10/05/22 09:54 Urine Ketones Trace mg/dL (Negative) 10/05/22 09:54 Urine Blood Negative (Negative) 10/05/22 09:54 Urine Nitrite Negative (Negative) 10/05/22 09:54 Ur Leukocyte Esterase Trace (Negative) H 10/05/22 09:54 Urine RBC 3-5 /HPF (0-2) H 10/05/22 09:54 Urine WBC 0-5 /HPF (0-5) 10/05/22 09:54 Ur Squamous Epith Cells 3-5 /HPF (0-2) 10/05/22 09:54 Urine Bacteria None Seen (None Seen) 10/05/22 09:54 Hyaline Casts 0-2 /LPF (0-2) 10/05/22 09:54 COVID-19 ([facility]ELY[facility]) Negative (Negative) 10/05/22 06:57 COVID-19 Clin Com See Note 10/05/22 06:57 Impressions Abdomen/Pelvis CT 10/05/22 08:05 IMPRESSION: 1. Findings are consistent with small bowel obstruction with dilated fluid-filled stomach, duodenum and proximal jejunum. A large portion of the ileum is completely decompressed. The transition point is not seen with certainty but is somewhere in the right mid abdomen. 2. Other incidental findings as described above. Fleischner guidelines were followed. Chest X-Ray 10/05/22 08:06 IMPRESSION: Hypoinflated lungs with left basilar atelectasis. Assessment and Plan (1) Partial small bowel obstruction: Status: Acute I have reviewed his CAT scan with the radiologist. This shows dlatation of the small bowel with what appears to be some decompression distally. This is suggestive of partial small bowel obstruction. He does have good amount of air and stool in the colon. He he has a very benign exam. I have recommended inserting an NG tube. His creatinine is high at 5.9 and is likely prerenal. He should be aggressively hydrated. His lactate was 2.3 initially but this has gone down to 1.4 after IV fluids. I will follow along closely while he is in the hospital. Time Spent With Patient Time: Total time managing care of this patient today ____ minutes. Procedures Date of Service Date of Service: 10/05/22
--- NOTE | 2022-10-05 13:02 | PHA.MEDREC ---
Pharmacy Consult ? Medication Reconciliation Pharmacy has completed the medication reconciliation. Medication reconciliation completed using list from sn[facility].
--- NOTE | 2022-10-05 13:30 | PM.IMHP ---
History of Present Illness Date of Service: 10/05/22 Attending physician on admission: Jim Hassan Chief Complaint: nausea, vomiting, abd pain 67 year old male with history of TBI, BPH, orthostatic hypotension, chronic hepatitis C on epclusa, hld, epilepsy, secondary hyperparathyroidism of renal origin, GERD, schizoaffective disorder, urinary retention, osteoporosis, gait/mobility impairment, ADHD, and CKD stage 3 presented to the ED via EMS from [facility] for further evaluation of abdominal distension, decreased PO intake, generalized weakness, as well as N/V/D ongoing x3 days per residential staff. Pt is a limited historian though is A&Ox3. On arrival pt afebrile, tachycardic to 130, tachypneic to 28, hypoxic to 85%, placed on 4L supplemental O2 (not on home O2). No leukocytosis. Cr 5.90 (baseline 1.65), BUN 116. Electrolytes normal. Initial lactic acid 2.3, repeat 1.4. UA unremarkable. CT abd/pelvis findings consistent with SBO. CXR showing hypoinflated lungs with left basilar atelectasis. NG tube placed. Case discussed with general surgery recommending admission. Given 1L IV NS and empiric dose zosyn. EKG showing sinus tach, rate 120. Review of Systems Review of Systems: General: No fevers, malaise, unintentional weight loss Cardiovascular: No chest pain, palpitations, or leg edema Respiratory: No shortness of breath, wheezing, cough GI: +abd pain, +n/v/d, +anorexia. No constipation, melena, hematochezia : No dysuria, hematuria, increased urinary frequency, decreased urinary output MSK: No myalgia, back pain Neuro: No headaches, weakness, paresthesias Skin: No rashes or lesions [facility] Medical History (Updated 10/05/22 @ 14:10 by ELIZABETH Hudson) Anemia Attention deficit hyperactivity disorder Chronic kidney disease, stage 3 GERD (gastroesophageal reflux disease) Hematuria Hyperlipidemia Neurogenic bladder Orthostatic hypotension Partial small bowel obstruction Schizoaffective disorder TBI (traumatic brain injury) Surgical History History of surgery Social History Household Members: None Housing: Group Home Do you presently have visiting nurse or other home services: No Alcohol intake: never Patient Tobacco Use Status: Former Tobacco user Advance Directives: Yes Advance Directives on File: Yes Advance Directives Date on File: 07/10/21 service: No Current occupational status: disabled Meds Allergies Allergy/AdvReac Type Severity Reaction Status Date / Time NSAIDS (Non-Steroidal Allergy Unknown UNKNOWN Verified 10/05/22 06:41 Anti-Inflamma [NSAIDS (NON-STEROIDAL ANTI-INFLAMMA] Active Medications: Current Medications Acetaminophen (Acetaminophen 325 Mg Tablet) 650 mg PO Q6H PRN PRN Reason: Pain, Mild, fever Heparin Sodium (Porcine) (Heparin Sodium,Porcine 5,000 Unit/Ml Vial) 5,000 unit SUBCUT Q12H BRUCE Lactated Ringer's (Lr) 1,000 mls @ 100 mls/hr IVCONT .Q10H BRUCE Ondansetron HCl (Ondansetron Hcl 4 Mg/2 Ml Vial) 4 mg IVPUSH Q8H PRN PRN Reason: Nausea and Vomiting Pharmacy Consult (Consult Rx Perform Med Rec) 1 each MISCELLANE ONCE PRN PRN Reason: Consult order Sodium Chloride (0.9 % Sodium Chloride Flush 3 Ml Syringe) 3 ml IVFLUSH QSHIFT BRUCE Home Medications Medication Instructions Recorded Confirmed Last Taken Type albuterol sulfate 90 mcg/actuation 2 puff inhalation Q4H PRN Wheezing 07/10/21 10/05/22 Unknown History aerosol inhaler ascorbic acid (vitamin C) 500 mg 500 mg PO DAILY 07/10/21 10/05/22 10/04/22 History tablet (Vitamin C) calcitriol 0.25 mcg capsule 0.25 mcg PO TUFR 07/10/21 10/05/22 10/02/22 History clomipramine 50 mg capsule 100 mg PO BEDTIME ANXIETY 07/10/21 10/05/22 10/04/22 History docusate sodium 100 mg tablet 200 mg PO DAILY 07/10/21 10/05/22 10/04/22 History escitalopram oxalate 10 mg tablet 10 mg PO DAILY 07/10/21 10/05/22 10/04/22 History fenofibrate nanocrystallized 145 145 mg PO DAILY 07/10/21 10/05/22 10/04/22 History mg tablet ferrous sulfate 325 mg (65 mg 325 mg PO DAILY 07/10/21 10/05/22 10/04/22 History iron) tablet fludrocortisone 0.1 mg tablet 0.2 mg PO DAILY 07/10/21 10/05/22 10/04/22 History gabapentin 300 mg capsule 300 mg PO TID 07/10/21 10/05/22 10/04/22 History guaifenesin 100 mg/5 mL oral liquid 200 mg PO Q4H PRN Cough 07/10/21 10/05/22 Unknown History loratadine 10 mg tablet 10 mg PO DAILY PRN Allergy Symptoms 07/10/21 10/05/22 Unknown History midodrine 10 mg tablet 20 mg PO BID 07/10/21 10/05/22 10/04/22 History milk thistle 240 mg PO TID 07/10/21 10/05/22 10/04/22 History multivitamin 1 tab PO DAILY 07/10/21 10/05/22 10/04/22 History pramipexole 1 mg tablet 1 mg PO DAILY 07/10/21 10/05/22 10/04/22 History sennosides 8.6 mg tablet (senna) 8.6 mg PO DAILY PRN Constipation 07/10/21 10/05/22 Unknown History bisacodyl 10 mg rectal suppository 10 mg HI DAILY PRN Constipation 05/13/22 10/05/22 Unknown History hydrocortisone 10 mg tablet 10 mg PO TID 05/13/22 10/05/22 10/04/22 History loperamide 2 mg tablet 4 mg PO Q6H PRN Diarrhea 05/13/22 10/05/22 Unknown History clozapine 200 mg tablet 200 mg PO BEDTIME 06/02/22 10/05/22 10/04/22 History oseltamivir 30 mg capsule (Tamiflu) 30 mg PO DAILY PROPHYLAXIS 10/05/22 10/05/22 10/04/22 History sofosbuvir 400 mg-velpatasvir 100 1 tab PO DAILY 10/05/22 10/05/22 10/04/22 History mg tablet (Epclusa) Physical Exam Vital Signs and Narrative: Vital Signs: Last Vital Signs Temp 98.1 F 10/05/22 11:13 Pulse 116 H 10/05/22 13:28 Resp 18 10/05/22 13:28 BP 99/75 10/05/22 13:28 Pulse Ox 95 10/05/22 13:28 O2 Del Method 10/05/22 13:28 O2 Flow Rate 4 10/05/22 13:28 BMI result Body Mass Index 36.1 Constitutional - Awake and Alert, No apparent distress Eyes - PERRLA, EOMI Cardiovascular - S1S2, RRR, No edema Respiratory - Normal lung expansion, Normal respiratory effort, No respiratory distress, CTA bilaterally Gastrointestinal - softly distended, diffusely tender abd without guarding/rebound. Hypoactive bowel sounds - No CVA tenderness Extremities - no calf tenderness bilaterally, no swelling Musculoskeletal - Normal inspection, normal ROM Skin - Warm/Dry Neurological - Alert & oriented x3 Psychological - Appropriate affect Results Labs 10/05/22 06:57 10/05/22 06:57 Labs: Laboratory Results - last 24 hr 10/05/22 10/05/22 10/05/22 06:57 06:57 06:57 MCV 87.5 MCH 28.3 MCHC 32.4 RDW 13.2 Plt Count 257 D MPV 9.7 Immature Gran % (Auto) Cancelled Neut % (Auto) Cancelled Lymph % (Auto) Cancelled Duval % (Auto) Cancelled Eos % (Auto) Cancelled Baso % (Auto) Cancelled Lymph # (Auto) Cancelled Duval # (Auto) Cancelled Eos # (Auto) Cancelled Baso # (Auto) Cancelled Abs Immat Gran (auto) Cancelled Absolute Neuts (auto) Cancelled Absolute Nucleated RBC 0.000 Nucleated RBC % (auto) 0.0 Neutrophils % (Manual) 30 L Band Neutrophils % 24 H Lymphocytes % (Manual) 24 Monocytes % (Manual) 19 H Eosinophils % (Manual) 1 Basophils % (Manual) 1 Metamyelocytes % 1 Abs Neuts (Manual) 5.8 Lymphocytes # (Manual) 2.6 Monocytes # (Manual) 2.0 H Eosinophils # (Manual) 0.1 Basophils # (Manual) 0.1 Metamyelocytes # 0.1 Toxic Vacuolation PRESENT Platelet Estimate NORMAL Plt Morphology Comment NORMAL RBC Morphology NORMAL PT 14.7 H INR 1.3 H Anion Gap 22 H Estim Creat Clear Calc 14.6 Estimated GFR 10 Random Glucose 126 H Lactic Acid Lactic Acid F/U @ 2Hr Calcium 8.5 Magnesium 2.3 Total Bilirubin 0.8 Direct Bilirubin 0.4 AST 21 ALT 39 Alkaline Phosphatase 80 Troponin I High Sens Total Protein 7.3 Albumin 3.4 L Lipase 9 Urine Color Urine Appearance Urine pH Ur Specific Acton Urine Protein Urine Glucose (UA) Urine Ketones Urine Blood Urine Nitrite Ur Leukocyte Esterase Urine RBC Urine WBC Ur Squamous Epith Cells Urine Bacteria Hyaline Casts COVID-19 (EVELYN) COVID-19 Clin Com 10/05/22 10/05/22 10/05/22 06:57 06:57 06:57 MCV MCH MCHC RDW Plt Count MPV Immature Gran % (Auto) Neut % (Auto) Lymph % (Auto) Duval % (Auto) Eos % (Auto) Baso % (Auto) Lymph # (Auto) Duval # (Auto) Eos # (Auto) Baso # (Auto) Abs Immat Gran (auto) Absolute Neuts (auto) Absolute Nucleated RBC Nucleated RBC % (auto) Neutrophils % (Manual) Band Neutrophils % Lymphocytes % (Manual) Monocytes % (Manual) Eosinophils % (Manual) Basophils % (Manual) Metamyelocytes % Abs Neuts (Manual) Lymphocytes # (Manual) Monocytes # (Manual) Eosinophils # (Manual) Basophils # (Manual) Metamyelocytes # Toxic Vacuolation Platelet Estimate Plt Morphology Comment RBC Morphology PT INR Anion Gap Estim Creat Clear Calc Estimated GFR Random Glucose Lactic Acid 2.3 H* Lactic Acid F/U @ 2Hr Calcium Magnesium Total Bilirubin Direct Bilirubin AST ALT Alkaline Phosphatase Troponin I High Sens 13.8 Total Protein Albumin Lipase Urine Color Urine Appearance Urine pH Ur Specific Acton Urine Protein Urine Glucose (UA) Urine Ketones Urine Blood Urine Nitrite Ur Leukocyte Esterase Urine RBC Urine WBC Ur Squamous Epith Cells Urine Bacteria Hyaline Casts COVID-19 (EVELYN) Negative COVID-19 Clin Com See Note 10/05/22 10/05/22 09:54 10:32 MCV MCH MCHC RDW Plt Count MPV Immature Gran % (Auto) Neut % (Auto) Lymph % (Auto) Duval % (Auto) Eos % (Auto) Baso % (Auto) Lymph # (Auto) Duval # (Auto) Eos # (Auto) Baso # (Auto) Abs Immat Gran (auto) Absolute Neuts (auto) Absolute Nucleated RBC Nucleated RBC % (auto) Neutrophils % (Manual) Band Neutrophils % Lymphocytes % (Manual) Monocytes % (Manual) Eosinophils % (Manual) Basophils % (Manual) Metamyelocytes % Abs Neuts (Manual) Lymphocytes # (Manual) Monocytes # (Manual) Eosinophils # (Manual) Basophils # (Manual) Metamyelocytes # Toxic Vacuolation Platelet Estimate Plt Morphology Comment RBC Morphology PT INR Anion Gap Estim Creat Clear Calc Estimated GFR Random Glucose Lactic Acid Lactic Acid F/U @ 2Hr 1.4 Calcium Magnesium Total Bilirubin Direct Bilirubin AST ALT Alkaline Phosphatase Troponin I High Sens Total Protein Albumin Lipase Urine Color Dark Yellow Urine Appearance Clear Urine pH 5.0 Ur Specific Acton 1.020 Urine Protein Negative Urine Glucose (UA) Negative Urine Ketones Trace Urine Blood Negative Urine Nitrite Negative Ur Leukocyte Esterase Trace H Urine RBC 3-5 H Urine WBC 0-5 Ur Squamous Epith Cells 3-5 Urine Bacteria None Seen Hyaline Casts 0-2 COVID-19 (EVELYN) COVID-19 Clin Com Imaging Radiologist's Impressions: Impressions Abdomen/Pelvis CT 10/05/22 08:05 IMPRESSION: 1. Findings are consistent with small bowel obstruction with dilated fluid-filled stomach, duodenum and proximal jejunum. A large portion of the ileum is completely decompressed. The transition point is not seen with certainty but is somewhere in the right mid abdomen. 2. Other incidental findings as described above. Fleischner guidelines were followed. Chest X-Ray 10/05/22 08:06 IMPRESSION: Hypoinflated lungs with left basilar atelectasis. Assessment and Plan (1) Partial small bowel obstruction: Status: Acute (2) JOSE L (acute kidney injury): Status: Acute Plan 67 year old male with history of TBI, BPH, orthostatic hypotension, chronic hepatitis C on epclusa, hld, epilepsy, secondary hyperparathyroidism of renal origin, GERD, schizoaffective disorder, urinary retention, osteoporosis, gait/mobility impairment, ADHD, and CKD stage 3 #Aute Partial SBO -Continue NG tube -Appreciate general surgery input -Keep KPO for now #JOSE L- prerenal secondary to poor PO intake/dehydration -Cr 5.90 (baseline 1.65), BUN 116. Electrolytes normal -Tachycardia secondary to dehydration, not sepsis -Aggressive IVF with LR @125ml/hr -Follow BMP -Continue craven catheter -Treat the above -Consider renal consult if no improvement #Acute hypoxemic respiratory failure -Likely secondary to aspiration with vomiting from above as well as hypoventilation/atelectasis noted on -Continue supplemental O2 to maintain oximetry >92% -BNP normal. DDimer >2300. VQ scan ordered -CXR negative for pneumonia -Given empiric dose zosyn in ED. Treat empirically for aspiration pneumonia renally dosed unasyn 1.5mg BID x 5 days -Continue home steroids -Consider repeat CXR tomorrow if no improvement #Lactic acidosis- resolved -Likely secondary to dehydration -Contineu IVF #Orthostatic hypotension -Continue midodrine -Will change hydrocortisone to 100mg TID IV in case of any underlying adrenal insufficiency give acute state. Hold fludrocortisone #Schizoaffective disorder -Continue home meds #CKD stage 3- with acute kidney injury above -Follow BMP #?Influenza -Home med list notes tamiflu. Influenza test pending DVT prophylaxis- heparin Full code Pt requires inpt stay at least 2 midnights for management of JOSE L requiring aggressive IVF and close monitoring of renal function/electrolyte levels as well as partial SBO requiring NG tube and NPO status. Time Spent With Patient Time: Total time managing care of this patient today ____ minutes. Quality Stroke Does the patient have a stroke diagnosis?: No VTE Prior VTE?: No VTE Risk Level:: Medical - moderate - high VTE Device Contraindication: Treatment Not Indicated VTE Drug Contraindication: N/A - Med Ordered
[2022-10-05 14:19] LABS: D Dimer High Sensitivity 2349 NG/ML
[2022-10-05 14:28] LABS: B Type Natriuretic Peptide 12 pg/mL (<100)
--- NOTE | 2022-10-05 14:47 | MHC.EDTECH ---
Pt was repositioned and bedding changed due to bowel incontinence. Extensive assistance x2. Pt handled activity well.
[2022-10-05] MEDS: Lactated Ringers 1,000 ML 125 ML IVCONT (18:31)
[2022-10-05] MEDS: Ampicillin Sodium/Sulbactam Na 1.5 GM in 0.9 % Sodium Chloride 100 ML IV (18:31)
[2022-10-05] MEDS: 0.9 % Sodium Chloride Flush 3 ML SYRINGE IVFLUSH (18:31)
[2022-10-05] MEDS: Gabapentin 300 MG CAPSULE PO ×2 (18:32→21:42)
--- NOTE | 2022-10-05 19:10 | PC.NURSE ---
PT OFF UNIT FROM 1400 TO 1600 FRO NUCULAR SCAN
--- NOTE | 2022-10-05 21:17 | PC.NURSE ---
Positive blood culture, gram negative rods, notified DEJON Baez
--- NOTE | 2022-10-05 21:23 | HE.PHANOTE ---
Clozaril RN called from ED to send down Clozaril dose. Noticed Clozaril REMS checklist was not filled out. Contacted SNF ( [facility]) to verify dose and date last taken, which was 10/05/22. I was able to get an MAGNETIC [employer]ONANCE IMAGING COORDINATOR on the REMS website because the ANC was current but originally had a DO NOT DISPENSE because a Patient Status Form was not on file. Left for morning pharmacist to follow up with MD to have this form submitted. Catrachita Wisdom [facility]
[2022-10-05] MEDS: Midodrine HCl 10 MG TABLET 20 MG PO (21:42)
[2022-10-05] MEDS: cloZAPine 100 MG TABLET 200 MG PO (21:42)
[2022-10-05] MEDS: clomiPRAMINE HCl 25 MG CAPSULE 100 MG PO (21:42)
[2022-10-05] MEDS: Hydrocortisone Sod Succ/PF 100 MG VIAL IVPUSH (21:43)
--- NOTE | 2022-10-05 22:06 | MHC.CM.PN ---
IMM 10/05. Advanced directive on file 2008/ full code/ signed by patient. Pt resides at [facility]. Hx TBI and schizoaffective disorder. No HCP on file or in paper work from facility. A&)x3. Lives in [facility]. States he walks independently. Does not use cane/walker. Pfizer x4. Primary Contact-sister Oralia Quinteros ([phone]). Sister was contacted by residential regarding patient transfer to hospital. D/C plan: return to [facility]. Will need BLS at discharge. CM to follow for discharge needs.
--- NOTE | 2022-10-05 22:18 | PC.NURSE ---
bedtime meds given - patient resting comfortably on stretcher - ng tube in place intermittent suction - on cardiac monitor technician. patient has no current complaints. needs met will continue to monitor
--- NOTE | 2022-10-05 23:01 | PC.NURSE ---
Addendum entered by Digna Cali RN 10/06/22 07:11: report given to DEOJN Wells Addendum entered by Digna Cali RN 10/06/22 02:44: positive blood culture: gram positive cocci and cluster Dr. Turpin made aware Original Note: report received from DEJON Kuo pt is alert and oriented incontinent of stools, pt cleaned and repositioned in the bed started on continuos cardiac monitoring
[2022-10-06] VITALS (7 sets, daily range): BP systolic 125–147; BP diastolic 82–111; PULSE 105–116; RESP 14–23; TEMP 36–36.7; O2SAT 93–96
[2022-10-06] MEDS: Ampicillin Sodium/Sulbactam Na 1.5 GM in 0.9 % Sodium Chloride 100 ML IV ×2 (03:18→14:32)
[2022-10-06] MEDS: Lactated Ringers 1,000 ML 125 ML IVCONT (03:44)
[2022-10-06] MEDS: Hydrocortisone Sod Succ/PF 100 MG VIAL IVPUSH ×3 (05:28→22:15)
[2022-10-06 06:26] LABS: Hematocrit 38.7 % (42.0-52.0); Hemoglobin 12.3 g/dl (14.0-18.0); Mean Corpuscular HGB Conc 31.8 g/dl (31.0-36.0); Mean Corpuscular Hemoglobin 28.1 pg (27.0-33.0); Mean Corpuscular Volume 88.6 fL (80.0-98.0); Mean Platelet Volume 9.3 fL (9.4-12.4); Platelet Count 189 X10*3/uL (160-400); Red Blood Count 4.37 X10*6/uL (4.60-5.80); Red Cell Distribution Width 13.4 % (11.0-16.0); White Blood Count 10.4 X10*3/uL (4.8-10.8)
[2022-10-06 06:49] LABS: Anion Gap 19 (12-20); Blood Urea Nitrogen 116 mg/dL (9-16); Carbon Dioxide 26 mmol/L (22-29); Chloride 109 mmol/L (96-108); Creatinine Clr Calc Pharmacy 21.2; Estimated Glomerular Filt Rate 15; Glucose Random 120 mg/dL (60-115); Potassium 3.9 mmol/L (3.3-5.1); Sodium 150 mmol/L (135-145)
[2022-10-06 07:13] LABS: Atypical Lymph Absolute Manual 0.1 x10*3/uL; Atypical Lymphs Percent Manual 1 % (0-6); Band Neutrophils Percent 21 % (3-5); Basophils Abs Manual 0.1 X10*3/uL (0.0-0.2); Basophils Percent Manual 1 % (0-2); Lymphocytes Absolute Manual 1.2 X10*3/uL (1.2-4.9); Lymphocytes Percent Manual 12 % (20-40); Metamyelocytes Absolute 0.1 X10*3/uL; Metamyelocytes Percent 1 %; Monocytes Percent Manual 10 % (2-11); Neutrophils Absolute Manual 7.8 X10*3/uL (2.0-8.3); Neutrophils Percent Manual 54 % (45-73)
[2022-10-06 07:21] LABS: Dohle Bodies PRESENT; Platelet Estimate NORMAL (NORMAL); Platelet Morphology Comment NORMAL; RBC Morphology NORMAL; Toxic Granulation PRESENT
[2022-10-06 07:25] LABS: IDNOW Serial# 16C4AD1C; Influenza A Negative (Negative); Influenza B2 Negative (Negative)
[2022-10-06 08:37] LABS: Baso%MD 0.7 %; Eos%MD 0.4 %; IG%MD 1.6 %; Lymph%MD 15.1 %; Mono%MD 11.5 %; Neut%MD 70.7 %
[2022-10-06] MEDS: 0.9 % Sodium Chloride Flush 3 ML SYRINGE IVFLUSH (09:36)
[2022-10-06] MEDS: Dextrose 5 % and Lactated Ring 1,000 ML 100 ML IVCONT (09:45)
[2022-10-06 09:52] LABS: Glucose, Whole Blood 116 mg/dL (60-115)
[2022-10-06] MEDS: Ferrous Sulfate 324 MG TABLET.DR PO (10:11)
[2022-10-06] MEDS: Multivitamin TABLET 1 TAB PO (10:13)
[2022-10-06] MEDS: Midodrine HCl 10 MG TABLET 20 MG PO ×2 (10:13→22:14)
[2022-10-06] MEDS: Escitalopram Oxalate 10 MG TABLET PO (10:14)
[2022-10-06] MEDS: Gabapentin 300 MG CAPSULE PO ×3 (10:18→22:14)
--- NOTE | 2022-10-06 10:45 | PC.NURSE ---
pt is a/o x 4 no sob/vianey noted speaks in full sentences. bs + x 4 quads, abd soft and obese. ng tube + placement, draining green fluid in cannister approx 1000ml. lisette 1+ pitting edema noted. pili(nara) at bedside earlier. pt aware of plan of care. craven cath p&d, emptied for 1000ml yellow urine. d5lr at 100nl/hr infusing.
--- NOTE | 2022-10-06 10:49 | PC.NURSE ---
dr. ugalde at bedside, pt aware of plan of care
--- NOTE | 2022-10-06 10:50 | PC.NURSE ---
per dr. ugalde pt can have ice chips.
--- NOTE | 2022-10-06 10:51 | P.PNGS_ITS ---
Subjective Subjective Date of Service: 10/06/22 Interval history: No events overnight patient complaints of back pain denies flatus not reliable with regards to history details Physical Exam Vital Signs: Vital Signs: Last Vital Signs Temp 97.5 F 10/06/22 09:27 Pulse 113 H 10/06/22 09:27 Resp 20 10/06/22 09:27 BP 125/83 10/06/22 09:27 Pulse Ox 94 10/06/22 09:27 O2 Del Method 10/06/22 09:27 O2 Flow Rate 4 10/06/22 08:05 BMI result Body Mass Index 36.1 Const: General: comfortable and no acute distress Resp: Effort & Inspection: normal respiratory effort Cardio: Rate: tachycardic GI: Palpation (GI): Soft to palpation, not firm, nontender and no guarding Objective Data Active Medications Acetaminophen (Acetaminophen 325 Mg Tablet) 650 mg PO Q6H PRN PRN Reason: Pain, Mild, fever Ascorbic Acid (Ascorbic Acid 500 Mg Tablet) 500 mg PO DAILY [facility] Last Admin: 10/06/22 09:36 Dose: Not Given Documented By: BERRY Non-Admin Reason: NPO Bisacodyl (Bisacodyl 10 Mg Supp.Rect) 10 mg [place] DAILY PRN PRN Reason: Constipation Calcitriol (Calcitriol 0.25 Mcg Capsule) 0.25 mcg PO TuFr@0900 [facility] Last Admin: 10/06/22 09:37 Dose: Not Given Documented By: BERRY Non-Admin Reason: NPO Clomipramine HCl (Clomipramine Hcl 25 Mg Capsule) 100 mg PO BEDTIME [facility] Last Admin: 10/05/22 21:42 Dose: 100 mg Documented By: ANA LAURA Clozapine (Clozapine 100 Mg Tablet) 200 mg PO BEDTIME [facility] Last Admin: 10/05/22 21:42 Dose: 200 mg Documented By: ANA LAURA Escitalopram Oxalate (Escitalopram Oxalate 10 Mg Tablet) 10 mg PO DAILY [facility] Last Admin: 10/06/22 10:14 Dose: 10 mg Documented By: BERRY Fenofibrate (Fenofibrate 160 Mg Tablet) 160 mg PO DAILY [facility] Last Admin: 10/06/22 09:37 Dose: Not Given Documented By: BERRY Non-Admin Reason: NPO Ferrous Sulfate (Ferrous Sulfate 324 Mg Tablet.Dr) 324 mg PO DAILY [facility] Last Admin: 10/06/22 10:11 Dose: 324 mg Documented By: BERRY Fludrocortisone Acetate (Fludrocortisone Acetate 0.1 Mg Tablet) 0.2 mg PO DAILY [facility] Last Admin: 10/05/22 19:10 Dose: Not Given Documented By: BETO Non-Admin Reason: See Note Gabapentin (Gabapentin 300 Mg Capsule) 300 mg PO TID [facility] Last Admin: 10/06/22 10:18 Dose: 300 mg Documented By: BERRY Heparin Sodium (Porcine) (Heparin Sodium,Porcine 5,000 Unit/Ml Vial) 5,000 unit SUBCUT Q12H [facility] Last Admin: 10/06/22 00:14 Dose: Not Given Documented By: N-ANICL Non-Admin Reason: See Note Hydrocortisone Sodium Succinate (Hydrocortisone Sod Succ/Pf 100 Mg Vial) 100 mg IVPUSH Q8H [facility] Last Admin: 10/06/22 05:28 Dose: 100 mg Documented By: N-ANICL Ampicillin Sodium/Sulbactam (Sodium 1.5 gm/ Sodium Chloride) 100 mls @ 200 mls/hr IV Q12H [facility] Last Infusion: 10/06/22 06:43 Dose: 0 mls/hr Documented By: SAMIR-ANICL Dextrose/Lactated Ringer's (D5lr) 1,000 mls @ 100 mls/hr IVCONT .Q10H [facility] Last Admin: 10/06/22 09:45 Dose: 100 mls/hr Documented By: BERRY Loperamide HCl (Loperamide Hcl 2 Mg Capsule) 4 mg PO Q6H PRN PRN Reason: Diarrhea Loratadine (Loratadine 10 Mg Tablet) 10 mg PO DAILY PRN PRN Reason: Allergy Symptoms Midodrine (Midodrine Hcl 10 Mg Tablet) 20 mg PO BID [facility] Last Admin: 10/06/22 10:13 Dose: 20 mg Documented By: BERRY Multivitamins/Vitamin C (Multivitamin Tablet) 1 tab PO DAILY [facility] Last Admin: 10/06/22 10:13 Dose: 1 tab Documented By: BERRY Non-Formulary Medication (Sofosbuvir-Velpatasvir [Epclusa]) 1 tab PO DAILY [facility] Ondansetron HCl (Ondansetron Hcl 4 Mg/2 Ml Vial) 4 mg IVPUSH Q8H PRN PRN Reason: Nausea and Vomiting Pharmacy Consult (Consult Rx Perform Med Rec) 1 each MISCELLANE ONCE PRN PRN Reason: Consult order Pramipexole Dihydrochloride (Pramipexole Di-Hcl 1 Mg Tablet) 1 mg PO DAILY [facility] Last Admin: 10/06/22 09:37 Dose: Not Given Documented By: BERRY Non-Admin Reason: NPO Sodium Chloride (0.9 % Sodium Chloride Flush 3 Ml Syringe) 3 ml IVFLUSH QSHIFT [facility] Last Admin: 10/06/22 09:36 Dose: 3 ml Documented By: BERRY Labs 10/06/22 06:03 10/06/22 06:03 Labs: Laboratory Results - last 24 hr 10/05/22 10/05/22 10/05/22 10:32 13:48 13:48 MCV MCH MCHC RDW Plt Count MPV Immature Gran % (Auto) Neut % (Auto) Lymph % (Auto) [place] % (Auto) Eos % (Auto) Baso % (Auto) Lymph # (Auto) [place] # (Auto) Eos # (Auto) Baso # (Auto) Abs Immat Gran (auto) Absolute Neuts (auto) Absolute Nucleated RBC Nucleated RBC % (auto) Neutrophils % (Manual) Band Neutrophils % Lymphocytes % (Manual) Atypical Lymphs % (Man) Monocytes % (Manual) Basophils % (Manual) Metamyelocytes % Abs Neuts (Manual) Lymphocytes # (Manual) Atyp Lymphs # (Manual) Monocytes # (Manual) Basophils # (Manual) Metamyelocytes # Toxic Granulation Dohle Bodies Platelet Estimate Plt Morphology Comment RBC Morphology D-Dimer High Sensitivty 2349 Anion Gap Estim Creat Clear Calc Estimated GFR POC Glucose Random Glucose Lactic Acid F/U @ 2Hr 1.4 Calcium B-Natriuretic Peptide 12 Influenza Type A (VALERIO) Influenza Type B (VALERIO) Influenza A & B Note 10/06/22 10/06/22 10/06/22 06:03 06:03 06:21 MCV 88.6 MCH 28.1 MCHC 31.8 RDW 13.4 Plt Count 189 D MPV 9.3 L Immature Gran % (Auto) Cancelled Neut % (Auto) Cancelled Lymph % (Auto) Cancelled [place] % (Auto) Cancelled Eos % (Auto) Cancelled Baso % (Auto) Cancelled Lymph # (Auto) Cancelled [place] # (Auto) Cancelled Eos # (Auto) Cancelled Baso # (Auto) Cancelled Abs Immat Gran (auto) Cancelled Absolute Neuts (auto) Cancelled Absolute Nucleated RBC 0.000 Nucleated RBC % (auto) 0.0 Neutrophils % (Manual) 54 Band Neutrophils % 21 H Lymphocytes % (Manual) 12 L Atypical Lymphs % (Man) 1 Monocytes % (Manual) 10 Basophils % (Manual) 1 Metamyelocytes % 1 Abs Neuts (Manual) 7.8 Lymphocytes # (Manual) 1.2 Atyp Lymphs # (Manual) 0.1 Monocytes # (Manual) 1.0 Basophils # (Manual) 0.1 Metamyelocytes # 0.1 Toxic Granulation PRESENT Dohle Bodies PRESENT Platelet Estimate NORMAL Plt Morphology Comment NORMAL RBC Morphology NORMAL D-Dimer High Sensitivty Anion Gap 19 Estim Creat Clear Calc 21.2 Estimated GFR 15 POC Glucose Random Glucose 120 H Lactic Acid F/U @ 2Hr Calcium 8.0 L B-Natriuretic Peptide Influenza Type A (VALERIO) Negative Influenza Type B (VALERIO) Negative Influenza A & B Note See Note 10/06/22 09:48 MCV MCH MCHC RDW Plt Count MPV Immature Gran % (Auto) Neut % (Auto) Lymph % (Auto) [place] % (Auto) Eos % (Auto) Baso % (Auto) Lymph # (Auto) [place] # (Auto) Eos # (Auto) Baso # (Auto) Abs Immat Gran (auto) Absolute Neuts (auto) Absolute Nucleated RBC Nucleated RBC % (auto) Neutrophils % (Manual) Band Neutrophils % Lymphocytes % (Manual) Atypical Lymphs % (Man) Monocytes % (Manual) Basophils % (Manual) Metamyelocytes % Abs Neuts (Manual) Lymphocytes # (Manual) Atyp Lymphs # (Manual) Monocytes # (Manual) Basophils # (Manual) Metamyelocytes # Toxic Granulation Dohle Bodies Platelet Estimate Plt Morphology Comment RBC Morphology D-Dimer High Sensitivty Anion Gap Estim Creat Clear Calc Estimated GFR POC Glucose 116 H Random Glucose Lactic Acid F/U @ 2Hr Calcium B-Natriuretic Peptide Influenza Type A (VALERIO) Influenza Type B (VALERIO) Influenza A & B Note Microbiology Microbiology Results: Microbiology 10/05/22 06:58 Blood Culture - Preliminary Blood - Venous Prelim: GPC Gram Stain only 10/05/22 06:58 Blood Culture - Preliminary Blood - Venous Gram negative alis Procedures Date of Service Date of Service: 10/06/22 Progress Note: A&P Assessment and plan (1) Partial small bowel obstruction: Status: Acute Assessment and Plan: abdominal exam remains very benign no tenderness will repeat KUB creatinine trending down continue IV fluids looks well otherwise Time Spent With Patient Time: Total time managing care of this patient today ____ minutes. Quality Stroke Does the patient have a stroke diagnosis?: No VTE Prior VTE?: No VTE Risk Level:: Medical - moderate - high VTE Device Contraindication: Treatment Not Indicated VTE Drug Contraindication: N/A - Med Ordered
--- NOTE | 2022-10-06 11:54 | P.PNIM_ITS ---
Subjective Subjective Date of Service: 10/06/22 Interval History: Seen in follow up for partial SBO, JOSE L Interval History: Pt has no complaints. Had an episode of diarrhea last night, passing flatus. Requesting water/food. No abd pain, nausea Review of Systems Review of Systems: Yes all other systems are reviewed and are negative Physical Exam Vital Signs: Vital Signs: Last Vital Signs Temp 97.5 F 10/06/22 09:27 Pulse 113 H 10/06/22 09:27 Resp 20 10/06/22 09:27 BP 125/83 10/06/22 09:27 Pulse Ox 94 10/06/22 09:27 O2 Del Method 10/06/22 09:27 O2 Flow Rate 4 10/06/22 08:05 BMI result Body Mass Index 36.1 Constitutional - Awake and Alert, No apparent distress Eyes - PERRLA, EOMI Cardiovascular - S1S2, RRR, No edema Respiratory - Normal lung expansion, Normal respiratory effort, No respiratory distress, scattered crackles bilaterally Gastrointestinal - NT / ND; +BS; No rebound or guarding Extremities - no calf tenderness bilaterally, no swelling Skin - Warm/Dry Neurological - Alert & oriented x3 Psychological - Appropriate affect Objective Data Active Medications Acetaminophen (Acetaminophen 325 Mg Tablet) 650 mg PO Q6H PRN PRN Reason: Pain, Mild, fever Ascorbic Acid (Ascorbic Acid 500 Mg Tablet) 500 mg PO DAILY [facility] Last Admin: 10/06/22 09:36 Dose: Not Given Documented By: BERRY Non-Admin Reason: NPO Bisacodyl (Bisacodyl 10 Mg Supp.Rect) 10 mg [place] DAILY PRN PRN Reason: Constipation Calcitriol (Calcitriol 0.25 Mcg Capsule) 0.25 mcg PO TuFr@0900 [facility] Last Admin: 10/06/22 09:37 Dose: Not Given Documented By: BERRY Non-Admin Reason: NPO Clomipramine HCl (Clomipramine Hcl 25 Mg Capsule) 100 mg PO BEDTIME [facility] Last Admin: 10/05/22 21:42 Dose: 100 mg Documented By: ANA LAURA Clozapine (Clozapine 100 Mg Tablet) 200 mg PO BEDTIME [facility] Last Admin: 10/05/22 21:42 Dose: 200 mg Documented By: ANA LAURA Escitalopram Oxalate (Escitalopram Oxalate 10 Mg Tablet) 10 mg PO DAILY [facility] Last Admin: 10/06/22 10:14 Dose: 10 mg Documented By: SCOC Fenofibrate (Fenofibrate 160 Mg Tablet) 160 mg PO DAILY [facility] Last Admin: 10/06/22 09:37 Dose: Not Given Documented By: BERRY Non-Admin Reason: NPO Ferrous Sulfate (Ferrous Sulfate 324 Mg Tablet.Dr) 324 mg PO DAILY [facility] Last Admin: 10/06/22 10:11 Dose: 324 mg Documented By: CORKYOC Fludrocortisone Acetate (Fludrocortisone Acetate 0.1 Mg Tablet) 0.2 mg PO DAILY [facility] Last Admin: 10/05/22 19:10 Dose: Not Given Documented By: BETO Non-Admin Reason: See Note Gabapentin (Gabapentin 300 Mg Capsule) 300 mg PO TID [facility] Last Admin: 10/06/22 10:18 Dose: 300 mg Documented By: BERRY Heparin Sodium (Porcine) (Heparin Sodium,Porcine 5,000 Unit/Ml Vial) 5,000 unit SUBCUT Q12H [facility] Last Admin: 10/06/22 00:14 Dose: Not Given Documented By: N-ANICL Non-Admin Reason: See Note Hydrocortisone Sodium Succinate (Hydrocortisone Sod Succ/Pf 100 Mg Vial) 100 mg IVPUSH Q8H [facility] Last Admin: 10/06/22 05:28 Dose: 100 mg Documented By: N-ANICL Ampicillin Sodium/Sulbactam (Sodium 1.5 gm/ Sodium Chloride) 100 mls @ 200 mls/hr IV Q12H [facility] Last Infusion: 10/06/22 06:43 Dose: 0 mls/hr Documented By: N-ANICL Dextrose/Sodium Chloride (D51/2ns) 1,000 mls @ 125 mls/hr IVCONT .Q8H [facility] Loperamide HCl (Loperamide Hcl 2 Mg Capsule) 4 mg PO Q6H PRN PRN Reason: Diarrhea Loratadine (Loratadine 10 Mg Tablet) 10 mg PO DAILY PRN PRN Reason: Allergy Symptoms Midodrine (Midodrine Hcl 10 Mg Tablet) 20 mg PO BID [facility] Last Admin: 10/06/22 10:13 Dose: 20 mg Documented By: BERRY Multivitamins/Vitamin C (Multivitamin Tablet) 1 tab PO DAILY [facility] Last Admin: 10/06/22 10:13 Dose: 1 tab Documented By: BERRY Non-Formulary Medication (Sofosbuvir-Velpatasvir [Epclusa]) 1 tab PO DAILY [facility] Ondansetron HCl (Ondansetron Hcl 4 Mg/2 Ml Vial) 4 mg IVPUSH Q8H PRN PRN Reason: Nausea and Vomiting Pharmacy Consult (Consult Rx Perform Med Rec) 1 each MISCELLANE ONCE PRN PRN Reason: Consult order Pramipexole Dihydrochloride (Pramipexole Di-Hcl 1 Mg Tablet) 1 mg PO DAILY [facility] Last Admin: 10/06/22 09:37 Dose: Not Given Documented By: BERRY Non-Admin Reason: NPO Sodium Chloride (0.9 % Sodium Chloride Flush 3 Ml Syringe) 3 ml IVFLUSH QSHIFT [facility] Last Admin: 10/06/22 09:36 Dose: 3 ml Documented By: BERRY Labs 10/06/22 06:03 10/06/22 06:03 Labs: Laboratory Results - last 24 hr 10/05/22 10/05/22 10/06/22 13:48 13:48 06:03 MCV 88.6 MCH 28.1 MCHC 31.8 RDW 13.4 Plt Count 189 D MPV 9.3 L Immature Gran % (Auto) Cancelled Neut % (Auto) Cancelled Lymph % (Auto) Cancelled [place] % (Auto) Cancelled Eos % (Auto) Cancelled Baso % (Auto) Cancelled Lymph # (Auto) Cancelled [place] # (Auto) Cancelled Eos # (Auto) Cancelled Baso # (Auto) Cancelled Abs Immat Gran (auto) Cancelled Absolute Neuts (auto) Cancelled Absolute Nucleated RBC 0.000 Nucleated RBC % (auto) 0.0 Neutrophils % (Manual) 54 Band Neutrophils % 21 H Lymphocytes % (Manual) 12 L Atypical Lymphs % (Man) 1 Monocytes % (Manual) 10 Basophils % (Manual) 1 Metamyelocytes % 1 Abs Neuts (Manual) 7.8 Lymphocytes # (Manual) 1.2 Atyp Lymphs # (Manual) 0.1 Monocytes # (Manual) 1.0 Basophils # (Manual) 0.1 Metamyelocytes # 0.1 Toxic Granulation PRESENT Dohle Bodies PRESENT Platelet Estimate NORMAL Plt Morphology Comment NORMAL RBC Morphology NORMAL D-Dimer High Sensitivty 2349 Anion Gap Estim Creat Clear Calc Estimated GFR POC Glucose Random Glucose Calcium B-Natriuretic Peptide 12 Influenza Type A (VALERIO) Influenza Type B (VALERIO) Influenza A & B Note 10/06/22 10/06/22 10/06/22 06:03 06:21 09:48 MCV MCH MCHC RDW Plt Count MPV Immature Gran % (Auto) Neut % (Auto) Lymph % (Auto) [place] % (Auto) Eos % (Auto) Baso % (Auto) Lymph # (Auto) [place] # (Auto) Eos # (Auto) Baso # (Auto) Abs Immat Gran (auto) Absolute Neuts (auto) Absolute Nucleated RBC Nucleated RBC % (auto) Neutrophils % (Manual) Band Neutrophils % Lymphocytes % (Manual) Atypical Lymphs % (Man) Monocytes % (Manual) Basophils % (Manual) Metamyelocytes % Abs Neuts (Manual) Lymphocytes # (Manual) Atyp Lymphs # (Manual) Monocytes # (Manual) Basophils # (Manual) Metamyelocytes # Toxic Granulation Dohle Bodies Platelet Estimate Plt Morphology Comment RBC Morphology D-Dimer High Sensitivty Anion Gap 19 Estim Creat Clear Calc 21.2 Estimated GFR 15 POC Glucose 116 H Random Glucose 120 H Calcium 8.0 L B-Natriuretic Peptide Influenza Type A (VALERIO) Negative Influenza Type B (VALERIO) Negative Influenza A & B Note See Note Microbiology Microbiology Results: Microbiology 10/05/22 06:58 Blood Culture - Preliminary Blood - Venous Prelim: GPC Gram Stain only 10/05/22 06:58 Blood Culture - Preliminary Blood - Venous Gram negative alis Assessment and Plan (1) Partial small bowel obstruction: Status: Acute (2) JOSE L (acute kidney injury): Status: Acute Plan 67 year old male with history of TBI, BPH, orthostatic hypotension, chronic hepatitis C on epclusa, hld, epilepsy, secondary hyperparathyroidism of renal origin, GERD, schizoaffective disorder, urinary retention, osteoporosis, gait/mobility impairment, ADHD, and CKD stage 3 #Acute Partial SBO -Passing stool/flatus -Appreciate general surgery input -Keep NPO for now, continue NG tube -Repeat KUB per gen surgery -D/c NG tube and advance diet per general surgery #JOSE L- prerenal secondary to poor PO intake/dehydration -Cr trending down to 4.08, now with hypernatremia following 1L NS, then LR @125ml/hr -Change fluids to D5W/ 1/2 NS @125ml/hr -Nephrology consulted -Follow BMP -Continue craven catheter -Treat the above #Acute hypoxemic respiratory failure -Likely secondary to aspiration with vomiting from above as well as hypoven tilation/atelectasis noted on CXR -Continue supplemental O2 to maintain oximetry >92% -BNP normal. DDimer >2300. VQ scan negative for PE -Initial CXR negative for pneumonia, now with bilateral crackles. Consider repeat cxr if no improvement -Given empiric dose zosyn in ED. Treat empirically for aspiration pneumonia renally dosed unasyn 1.5mg BID x 5 days -Continue home steroids #Lactic acidosis- resolved -Likely secondary to dehydration -Continue IVF #Orthostatic hypotension -Continue midodrine -Will change hydrocortisone to 100mg TID IV in case of any underlying adrenal insufficiency give acute state. Hold fludrocortisone #Schizoaffective disorder -Continue home meds #CKD stage 3- with acute kidney injury above -Follow BMP #Negative for influenza -Hold home tamiflu DVT prophylaxis- heparin Full code Pt requires ongoing inpt stay for management of JOSE L requiring aggressive IVF and close monitoring of renal function/electrolyte levels as well as partial SBO requiring NG tube and NPO status Time Spent With Patient Time: Total time managing care of this patient today ____ minutes. Quality Stroke Does the patient have a stroke diagnosis?: No VTE Prior VTE?: No VTE Risk Level:: Medical - moderate - high VTE Device Contraindication: Treatment Not Indicated VTE Drug Contraindication: N/A - Med Ordered
[2022-10-06] MEDS: Dextrose 5 % and 0.45 % NaCl 1,000 ML 125 ML IVCONT ×2 (12:24→21:45)
[2022-10-06] MEDS: Heparin Sodium,Porcine 5,000 UNIT/ML VIAL 5000 UNIT SUBCUT (14:32)
--- NOTE | 2022-10-06 15:02 | CONS_ITS ---
DATE OF SERVICE: 10/06/2022 REASON FOR CONSULT: I was called to see the patient to assist in management of acute kidney injury, hyponatremia. HISTORY OF PRESENT ILLNESS: To summarize, Lamin is well known to my associate, Dr. Downing in outpatient setting. He has CKD with a baseline creatinine of 1.6 to 2 mg/dL. He comes in because of nausea, vomiting, and abdominal pain. CT shows evidence of small bowel obstruction. At the time of admission, he had acute kidney injury with a creatinine of 5.0 with some hydrations. The creatinine is gradually trending down. He has also developed hyponatremia during this admission. He is a resident of [facility]. PAST MEDICAL HISTORY: Ongoing medical problems include attention deficit disorder, chronic kidney disease stage 3. Baseline creatinine 1.6 to 2 mg/dL. GERD, history of hematuria and neurogenic bladder, orthostatic hypotension, history of small-bowel obstruction, history of traumatic brain injury. PAST SURGICAL HISTORY: Reviewed. SOCIAL HISTORY: Resident of [facility]. No history of any smoking at present. History of smoking in the past. ALLERGIES: NO KNOWN DRUG ALLERGIES, BUT NSAIDS HAVE BEEN LISTED ALLERGIES AND EXACT REACTION IS UNKNOWN. MEDICATIONS: At time of admission included albuterol, calcitriol 0.25 mcg, Lexapro, fenofibrate, iron, fludrocortisone, gabapentin, loratadine, midodrine 10 mg, Nepresol, pramipexole, bisacodyl, loperamide, hydrocortisone 10 mg tablets t.i.d., oseltamivir, and sofosbuvir/velpatasvir. All the current medications reviewed. REVIEW OF SYSTEMS: Limited. All the information obtained from the chart. PHYSICAL EXAMINATION: GENERAL: The patient is a middle-aged man, who is awake, not in distress. NECK: Supple. No JVD. Mucosa is dry. LUNGS: Air entry equal. Scattered rhonchi. No rales. HEART: S1, S2 heard. No gallop. No rub. ABDOMEN: Distended, soft, nontender. There is evidence of tympanic bowel sounds heard. NEURO: Alert and awake. No asterixis. No myoclonus. EXTREMITIES: No edema. No rash. No clubbing. VITAL SIGNS: Blood pressure today was 125/83, pulse 113. CT scan showed no hydronephrosis or evidence of small bowel obstruction. LABORATORY DATA: Hemoglobin 12.3, WBC 10.4, sodium 150, potassium 3.9, BUN 116, creatinine 4.08, CO2 26. PROBLEMS: 1. Acute kidney injury superimposed on chronic kidney disease. Acute kidney injury is most likely due to hypoperfusion from volume depletion. No evidence of obstruction. Most recently, he has any active glomerular interstitial disease at this time. 2. Hypernatremia due to free water deficit. 3. Small bowel obstruction. RECOMMENDATION: To hydrate him with hypotonic fluids. I would use half-normal saline and keep intake more than the output. The renal function is improving. No indication for dialysis. Keep Bay catheter. Watch urine output. He is currently nonoliguric. No indication for dialysis. We will follow him closely with the team. Julio Sandoval MD BPA/MODL / [id number]
[2022-10-06] MEDS: Simethicone 80 MG TAB.CHEW PO (15:15)
[2022-10-06] MEDS: cloZAPine 100 MG TABLET 200 MG PO (22:14)
[2022-10-06] MEDS: clomiPRAMINE HCl 25 MG CAPSULE 100 MG PO (22:15)
--- NOTE | 2022-10-06 22:44 | MHC.CM.PN ---
Per Nayan Lord at [facility], pt has a HCP and it is not invoked. Will email. Will upload when available. Pt does not have a guardian and he is his own person.
[2022-10-07] VITALS: BP 144/70; PULSE 92; RESP 20; TEMP 36.5; O2SAT 92
[2022-10-07] MEDS: Heparin Sodium,Porcine 5,000 UNIT/ML VIAL 5000 UNIT SUBCUT ×2 (00:14→11:39)
[2022-10-07] MEDS: Ampicillin Sodium/Sulbactam Na 1.5 GM in 0.9 % Sodium Chloride 100 ML IV ×2 (02:55→14:07)
[2022-10-07 03:21] VITALS: BP 148/72; PULSE 72; RESP 20; TEMP 36.2; O2SAT 98
[2022-10-07] MEDS: Hydrocortisone Sod Succ/PF 100 MG VIAL IVPUSH ×3 (05:54→21:16)
[2022-10-07] MEDS: Dextrose 5 % and 0.45 % NaCl 1,000 ML 125 ML IVCONT ×3 (06:36→21:12)
[2022-10-07 06:44] LABS: MANUAL DIFF FLAG NO
[2022-10-07 06:53] LABS: Basophils Percent Auto 0.3 % (0-2); Eosinophils Percent Auto 0.1 % (0-4); Hematocrit 37.3 % (42.0-52.0); Hemoglobin 11.9 g/dl (14.0-18.0); Imm Gran Abs Auto 0.24 X10*3/uL (0.00-0.03); Lymphocytes Absolute Auto 2.6 X10*3/uL (1.2-4.9); Lymphocytes Percent Auto 21.3 % (20-40); Mean Corpuscular HGB Conc 31.9 g/dl (31.0-36.0); Mean Corpuscular Hemoglobin 28.5 pg (27.0-33.0); Mean Corpuscular Volume 89.2 fL (80.0-98.0); Mean Platelet Volume 9.3 fL (9.4-12.4); Monocytes Absolute Auto 1.2 X10*3/uL (0.1-1.2); Monocytes Percent Auto 9.9 % (2-11); Neutrophils Percent Auto 66.4 % (45-73); Platelet Count 159 X10*3/uL (160-400); Red Blood Count 4.18 X10*6/uL (4.60-5.80); Red Cell Distribution Width 13.2 % (11.0-16.0)
[2022-10-07 07:10] LABS: Anion Gap 13 (12-20); Blood Urea Nitrogen 94 mg/dL (9-16); Calcium 8.6 mg/dL (8.4-10.2); Carbon Dioxide 26 mmol/L (22-29); Chloride 112 mmol/L (96-108); Creatinine Clr Calc Pharmacy 32.5; Estimated Glomerular Filt Rate 24; Glucose Random 153 mg/dL (60-115); Potassium 3.4 mmol/L (3.3-5.1); Sodium 148 mmol/L (135-145)
[2022-10-07 08:00] VITALS: BP 157/74; PULSE 59; RESP 20; TEMP 36.3; O2SAT 92
--- NOTE | 2022-10-07 09:55 | MHC.CM.PN ---
DP return to [facility] via BLS once medically cleared.
--- NOTE | 2022-10-07 09:58 | PM.PNGS ---
Subjective Subjective Date of Service: 10/07/22 Interval history: no events reported patient noted to be passing BMs appears comfortable denies abdominal pain Physical Exam Vital Signs: Vital Signs: Last Vital Signs Temp 97.4 F 10/07/22 08:00 Pulse 59 10/07/22 08:00 Resp 20 10/07/22 08:00 BP 157/74 H 10/07/22 08:00 Pulse Ox 92 10/07/22 08:00 O2 Del Method 10/07/22 08:00 O2 Flow Rate 2 10/07/22 08:00 BMI result Body Mass Index 36.1 Const: Other: appears drowsy General: comfortable and no acute distress Resp: Effort & Inspection: normal respiratory effort Cardio: Rate: regular rate GI: Inspection: No distended Palpation (GI): Soft to palpation, not firm, nontender and no guarding Objective Data Active Medications Acetaminophen (Acetaminophen 325 Mg Tablet) 650 mg PO Q6H PRN PRN Reason: Pain, Mild, fever Ascorbic Acid (Ascorbic Acid 500 Mg Tablet) 500 mg PO DAILY [facility] Last Admin: 10/06/22 09:36 Dose: Not Given Documented By: BERRY Non-Admin Reason: NPO Bisacodyl (Bisacodyl 10 Mg Supp.Rect) [address] DAILY PRN PRN Reason: Constipation Calcitriol (Calcitriol 0.25 Mcg Capsule) 0.25 mcg PO TuFr@0900 [facility] Last Admin: 10/06/22 09:37 Dose: Not Given Documented By: BERRY Non-Admin Reason: NPO Clomipramine HCl (Clomipramine Hcl 25 Mg Capsule) 100 mg PO BEDTIME [facility] Last Admin: 10/06/22 22:15 Dose: 100 mg Documented By: ANDEDWARD Clozapine (Clozapine 100 Mg Tablet) 200 mg PO BEDTIME [facility] Last Admin: 10/06/22 22:14 Dose: 200 mg Documented By: ANDERM Escitalopram Oxalate (Escitalopram Oxalate 10 Mg Tablet) 10 mg PO DAILY [facility] Last Admin: 10/06/22 10:14 Dose: 10 mg Documented By: BERRY Fenofibrate (Fenofibrate 160 Mg Tablet) 160 mg PO DAILY [facility] Last Admin: 10/06/22 09:37 Dose: Not Given Documented By: BERRY Non-Admin Reason: NPO Ferrous Sulfate (Ferrous Sulfate 324 Mg Tablet.Dr) 324 mg PO DAILY [facility] Last Admin: 10/06/22 10:11 Dose: 324 mg Documented By: SCOC Fludrocortisone Acetate (Fludrocortisone Acetate 0.1 Mg Tablet) 0.2 mg PO DAILY [facility] Last Admin: 10/05/22 19:10 Dose: Not Given Documented By: BETO Non-Admin Reason: See Note Gabapentin (Gabapentin 300 Mg Capsule) 300 mg PO TID [facility] Last Admin: 10/06/22 22:14 Dose: 300 mg Documented By: TRES Heparin Sodium (Porcine) (Heparin Sodium,Porcine 5,000 Unit/Ml Vial) 5,000 unit SUBCUT Q12H [facility] Last Admin: 10/07/22 00:14 Dose: 5,000 unit Documented By: ANDERM Hydrocortisone Sodium Succinate (Hydrocortisone Sod Succ/Pf 100 Mg Vial) 100 mg IVPUSH Q8H [facility] Last Admin: 10/07/22 05:54 Dose: 100 mg Documented By: ANDERM Ampicillin Sodium/Sulbactam (Sodium 1.5 gm/ Sodium Chloride) 100 mls @ 200 mls/hr IV Q12H [facility] Last Infusion: 10/07/22 03:36 Dose: 0 mls/hr Documented By: ANDEDWARD Dextrose/Sodium Chloride (D51/2ns) 1,000 mls @ 125 mls/hr IVCONT .Q8H [facility] Last Admin: 10/07/22 06:36 Dose: 125 mls/hr Documented By: ANDEDWARD Loperamide HCl (Loperamide Hcl 2 Mg Capsule) 4 mg PO Q6H PRN PRN Reason: Diarrhea Loratadine (Loratadine 10 Mg Tablet) 10 mg PO DAILY PRN PRN Reason: Allergy Symptoms Midodrine (Midodrine Hcl 10 Mg Tablet) 20 mg PO BID [facility] Last Admin: 10/06/22 22:14 Dose: 20 mg Documented By: ANDEDWARD Multivitamins/Vitamin C (Multivitamin Tablet) 1 tab PO DAILY [facility] Last Admin: 10/06/22 10:13 Dose: 1 tab Documented By: SCOC Non-Formulary Medication (Sofosbuvir-Velpatasvir [Epclusa]) 1 tab PO DAILY [facility] Ondansetron HCl (Ondansetron Hcl 4 Mg/2 Ml Vial) 4 mg IVPUSH Q8H PRN PRN Reason: Nausea and Vomiting Pharmacy Consult (Consult Rx Perform Med Rec) 1 each MISCELLANE ONCE PRN PRN Reason: Consult order Pramipexole Dihydrochloride (Pramipexole Di-Hcl 1 Mg Tablet) 1 mg PO DAILY [facility] Last Admin: 10/06/22 09:37 Dose: Not Given Documented By: SCOC Non-Admin Reason: NPO Sodium Chloride (0.9 % Sodium Chloride Flush 3 Ml Syringe) 3 ml IVFLUSH QSHIFT [facility] Last Admin: 10/06/22 22:15 Dose: Not Given Documented By: ANDERM Non-Admin Reason: IV Running Labs 10/07/22 06:38 10/07/22 06:38 Labs: Laboratory Results - last 24 hr 10/07/22 10/07/22 06:38 06:38 MCV 89.2 MCH 28.5 MCHC 31.9 RDW 13.2 Plt Count 159 L MPV 9.3 L Immature Gran % (Auto) 2.0 H Neut % (Auto) 66.4 Lymph % (Auto) 21.3 Divide % (Auto) 9.9 Eos % (Auto) 0.1 Baso % (Auto) 0.3 Lymph # (Auto) 2.6 [place]ide # (Auto) 1.2 Eos # (Auto) 0.0 Baso # (Auto) 0.0 Abs Immat Gran (auto) 0.24 H Absolute Neuts (auto) 8.0 Absolute Nucleated RBC 0.000 Nucleated RBC % (auto) 0.0 Anion Gap 13 Estim Creat Clear Calc 32.5 Estimated GFR 24 Random Glucose 153 H Calcium 8.6 D Microbiology Microbiology Results: Microbiology 10/05/22 06:58 Blood Culture - Final Blood - Venous Escherichia coli 10/05/22 06:58 Blood Culture - Final Blood - Venous Coag negative Staphylococcus Procedures Date of Service Date of Service: 10/07/22 Progress Note: A&P Assessment and plan (1) Partial small bowel obstruction: Status: Acute Assessment and Plan: symptoms resolved abdomen soft and benign, nontender, nondistended okay to DC NG tube start clear liquids may advance diet slowly as tolerated clinically doing well creatinine much him Time Spent With Patient Time: Total time managing care of this patient today ____ minutes. Quality Stroke Does the patient have a stroke diagnosis?: No VTE Prior VTE?: No VTE Risk Level:: Medical - moderate - high VTE Device Contraindication: Treatment Not Indicated VTE Drug Contraindication: N/A - Med Ordered
--- NOTE | 2022-10-07 10:19 | P.PNIM_ITS ---
Subjective Subjective Date of Service: 10/07/22 Interval History: Seen in follow up for partial SBO, JOSE L Interval History: Pt has no complaints. Has had several small BM's, soft/watery. No abd pain, nausea. Renal function improved Review of Systems Review of Systems: Yes all other systems are reviewed and are negative Physical Exam Vital Signs: Vital Signs: Last Vital Signs Temp 97.4 F 10/07/22 08:00 Pulse 59 10/07/22 08:00 Resp 20 10/07/22 08:00 BP 157/74 H 10/07/22 08:00 Pulse Ox 92 10/07/22 08:00 O2 Del Method 10/07/22 08:00 O2 Flow Rate 2 10/07/22 08:00 BMI result Body Mass Index 36.1 Constitutional - Awake and Alert, No apparent distress Eyes - PERRLA, EOMI Cardiovascular - S1S2, RRR, No edema Respiratory - Normal lung expansion, Normal respiratory effort, No respiratory distress, CTA Gastrointestinal - NT / ND; +BS; No rebound or guarding Extremities - no calf tenderness bilaterally, no swelling Skin - Warm/Dry Neurological - Alert & oriented x3 Psychological - Appropriate affect Objective Data Active Medications Acetaminophen (Acetaminophen 325 Mg Tablet) 650 mg PO Q6H PRN PRN Reason: Pain, Mild, fever Ascorbic Acid (Ascorbic Acid 500 Mg Tablet) 500 mg PO DAILY [facility] Last Admin: 10/06/22 09:36 Dose: Not Given Documented By: NDOC Non-Admin Reason: NPO Bisacodyl (Bisacodyl 10 Mg Supp.Rect) 10 mg [place] DAILY PRN PRN Reason: Constipation Calcitriol (Calcitriol 0.25 Mcg Capsule) 0.25 mcg PO TuFr@0900 [facility] Last Admin: 10/06/22 09:37 Dose: Not Given Documented By: CORKYOC Non-Admin Reason: NPO Clomipramine HCl (Clomipramine Hcl 25 Mg Capsule) 100 mg PO BEDTIME [facility] Last Admin: 10/06/22 22:15 Dose: 100 mg Documented By: ANDERM Clozapine (Clozapine 100 Mg Tablet) 200 mg PO BEDTIME [facility] Last Admin: 10/06/22 22:14 Dose: 200 mg Documented By: ANDERM Escitalopram Oxalate (Escitalopram Oxalate 10 Mg Tablet) 10 mg PO DAILY [facility] Last Admin: 10/06/22 10:14 Dose: 10 mg Documented By: SCMOON Fenofibrate (Fenofibrate 160 Mg Tablet) 160 mg PO DAILY [facility] Last Admin: 10/06/22 09:37 Dose: Not Given Documented By: BERRY Non-Admin Reason: NPO Ferrous Sulfate (Ferrous Sulfate 324 Mg Tablet.Dr) 324 mg PO DAILY [facility] Last Admin: 10/06/22 10:11 Dose: 324 mg Documented By: BERRY Fludrocortisone Acetate (Fludrocortisone Acetate 0.1 Mg Tablet) 0.2 mg PO DAILY [facility] Last Admin: 10/05/22 19:10 Dose: Not Given Documented By: BETO Non-Admin Reason: See Note Gabapentin (Gabapentin 300 Mg Capsule) 300 mg PO TID [facility] Last Admin: 10/06/22 22:14 Dose: 300 mg Documented By: ANDEDWARD Heparin Sodium (Porcine) (Heparin Sodium,Porcine 5,000 Unit/Ml Vial) 5,000 unit SUBCUT Q12H [facility] Last Admin: 10/07/22 00:14 Dose: 5,000 unit Documented By: ANDERM Hydrocortisone Sodium Succinate (Hydrocortisone Sod Succ/Pf 100 Mg Vial) 100 mg IVPUSH Q8H [facility] Last Admin: 10/07/22 05:54 Dose: 100 mg Documented By: ANDERM Ampicillin Sodium/Sulbactam (Sodium 1.5 gm/ Sodium Chloride) 100 mls @ 200 mls/hr IV Q12H [facility] Last Infusion: 10/07/22 03:36 Dose: 0 mls/hr Documented By: ANDERM Dextrose/Sodium Chloride (D51/2ns) 1,000 mls @ 125 mls/hr IVCONT .Q8H [facility] Last Admin: 10/07/22 06:36 Dose: 125 mls/hr Documented By: ANDERM Loperamide HCl (Loperamide Hcl 2 Mg Capsule) 4 mg PO Q6H PRN PRN Reason: Diarrhea Loratadine (Loratadine 10 Mg Tablet) 10 mg PO DAILY PRN PRN Reason: Allergy Symptoms Midodrine (Midodrine Hcl 10 Mg Tablet) 20 mg PO BID [facility] Last Admin: 10/06/22 22:14 Dose: 20 mg Documented By: ANDERM Multivitamins/Vitamin C (Multivitamin Tablet) 1 tab PO DAILY [facility] Last Admin: 10/06/22 10:13 Dose: 1 tab Documented By: BERRY Non-Formulary Medication (Sofosbuvir-Velpatasvir [Epclusa]) 1 tab PO DAILY [facility] Ondansetron HCl (Ondansetron Hcl 4 Mg/2 Ml Vial) 4 mg IVPUSH Q8H PRN PRN Reason: Nausea and Vomiting Pharmacy Consult (Consult Rx Perform Med Rec) 1 each MISCELLANE ONCE PRN PRN Reason: Consult order Pramipexole Dihydrochloride (Pramipexole Di-Hcl 1 Mg Tablet) 1 mg PO DAILY [facility] Last Admin: 10/06/22 09:37 Dose: Not Given Documented By: BERRY Non-Admin Reason: NPO Sodium Chloride (0.9 % Sodium Chloride Flush 3 Ml Syringe) 3 ml IVFLUSH QSHIFT [facility] Last Admin: 10/06/22 22:15 Dose: Not Given Documented By: ANDEDWARD Non-Admin Reason: IV Running Labs 10/07/22 06:38 10/07/22 06:38 Labs: Laboratory Results - last 24 hr 10/07/22 10/07/22 06:38 06:38 MCV 89.2 MCH 28.5 MCHC 31.9 RDW 13.2 Plt Count 159 L MPV 9.3 L Immature Gran % (Auto) 2.0 H Neut % (Auto) 66.4 Lymph % (Auto) 21.3 Hickman % (Auto) 9.9 Eos % (Auto) 0.1 Baso % (Auto) 0.3 Lymph # (Auto) 2.6 [place]ickman # (Auto) 1.2 Eos # (Auto) 0.0 Baso # (Auto) 0.0 Abs Immat Gran (auto) 0.24 H Absolute Neuts (auto) 8.0 Absolute Nucleated RBC 0.000 Nucleated RBC % (auto) 0.0 Anion Gap 13 Estim Creat Clear Calc 32.5 Estimated GFR 24 Random Glucose 153 H Calcium 8.6 D Microbiology Microbiology Results: Microbiology 10/05/22 06:58 Blood Culture - Final Blood - Venous Escherichia coli 10/05/22 06:58 Blood Culture - Final Blood - Venous Coag negative Staphylococcus Assessment and Plan (1) Partial small bowel obstruction: Status: Acute (2) JOSE L (acute kidney injury): Status: Acute Plan 67 year old male with history of TBI, BPH, orthostatic hypotension, chronic hepatitis C on epclusa, hld, epilepsy, secondary hyperparathyroidism of renal origin, GERD, schizoaffective disorder, urinary retention, osteoporosis, gait/mobility impairment, ADHD, and CKD stage 3 #Acute Partial SBO -Passing stool/flatus. Repeat KUB without dilated bowel loops -Appreciate general surgery input -D/C NGT, clear liquids, advance as tolerated #JOSE L- prerenal secondary to poor PO intake/dehydration -Cr trending down, now 2.66 -Continue 1/2 NS per nephrology -Follow BMP -Continue craven catheter for now per nephrology #Hypernatremia- secondary to free water deficit from above -Continue 1/2 NS per nephrology -Advance diet to clear liquids #Acute hypoxemic respiratory failure- improving -Likely secondary to aspiration with vomiting from above as well as hypoventilation/atelectasis noted on CXR -Continue supplemental O2 to maintain oximetry >92%, titrate as tolerated -BNP normal. DDimer >2300. VQ scan negative for PE -Given empiric dose zosyn in ED. Treat empirically for aspiration pneumonia renally dosed unasyn 1.5mg BID x 5 days -Encourage incentive spirometry -Continue home steroids #Lactic acidosis- resolved -Likely secondary to dehydration -Continue IVF #Orthostatic hypotension -Continue midodrine -Transition back to home dose PO steroids if tolerating diet #Schizoaffective disorder -Continue home meds -ANC levels normal. Continue clozaril. Will continue monitoring ANC levels -[facility] contacted to complete Patient Status Forms per [facility] for ongoing cloza pine administration #CKD stage 3- with acute kidney injury above -Follow BMP #Negative for influenza -Hold home tamiflu DVT prophylaxis- heparin Full code Pt requires ongoing inpt stay for management of JOSE L requiring aggressive IVF and close monitoring of renal function/electrolyte levels as well diet advancement following NPO status with NG tube for management of his partial SBO. Time Spent With Patient Time: Total time managing care of this patient today ____ minutes. Quality Stroke Does the patient have a stroke diagnosis?: No VTE Prior VTE?: No VTE Risk Level:: Medical - moderate - high VTE Device Contraindication: Treatment Not Indicated VTE Drug Contraindication: N/A - Med Ordered
[2022-10-07] MEDS: Escitalopram Oxalate 10 MG TABLET PO (10:47)
[2022-10-07] MEDS: Ferrous Sulfate 324 MG TABLET.DR PO (10:47)
[2022-10-07] MEDS: Pramipexole Di-HCL 1 MG TABLET PO (10:47)
[2022-10-07] MEDS: Fenofibrate 160 MG TABLET PO (10:47)
[2022-10-07] MEDS: Midodrine HCl 10 MG TABLET 20 MG PO (10:47)
[2022-10-07] MEDS: Gabapentin 300 MG CAPSULE PO ×3 (10:47→21:15)
[2022-10-07] MEDS: Multivitamin TABLET 1 TAB PO (10:47)
[2022-10-07] MEDS: Ascorbic Acid 500 MG TABLET PO (10:47)
[2022-10-07] MEDS: 0.9 % Sodium Chloride Flush 3 ML SYRINGE IVFLUSH ×3 (10:48→21:16)
--- NOTE | 2022-10-07 11:11 | PM.PNNEP ---
Subjective Subjective Date of Service: 10/07/22 Interval history: Events noted Seen in follow up for JOSE L and partial SBO, JOSE L Physical Exam Vital Signs: Vital Signs: Last Vital Signs Temp 97.4 F 10/07/22 08:00 Pulse 59 10/07/22 08:00 Resp 20 10/07/22 08:00 BP 157/74 H 10/07/22 08:00 Pulse Ox 92 10/07/22 08:00 O2 Del Method 10/07/22 08:00 O2 Flow Rate 2 10/07/22 08:00 BMI result Body Mass Index 36.1 Objective Data Labs 10/07/22 06:38 10/07/22 06:38 Labs: Laboratory Results - last 24 hr 10/07/22 10/07/22 06:38 06:38 WBC 12.0 H RBC 4.18 L Hgb 11.9 L Hct 37.3 L MCV 89.2 MCH 28.5 MCHC 31.9 RDW 13.2 Plt Count 159 L MPV 9.3 L Immature Gran % (Auto) 2.0 H Neut % (Auto) 66.4 Lymph % (Auto) 21.3 Roberts % (Auto) 9.9 Eos % (Auto) 0.1 Baso % (Auto) 0.3 Lymph # (Auto) 2.6 Roberts # (Auto) 1.2 Eos # (Auto) 0.0 Baso # (Auto) 0.0 Abs Immat Gran (auto) 0.24 H Absolute Neuts (auto) 8.0 Absolute Nucleated RBC 0.000 Nucleated RBC % (auto) 0.0 Sodium 148 H Potassium 3.4 Chloride 112 H Carbon Dioxide 26 Anion Gap 13 BUN 94 H Creatinine 2.66 H Estim Creat Clear Calc 32.5 Estimated GFR 24 Random Glucose 153 H Calcium 8.6 D Microbiology Microbiology Results: Microbiology 10/05/22 06:58 Blood - Venous Blood Culture - Final Escherichia coli 10/05/22 06:58 Blood - Venous Blood Culture - Final Coag negative Staphylococcus Procedures Date of Service Date of Service: 10/07/22 Assessment & Plan Assessment and plan (1) JOSE L (acute kidney injury): Status: Acute Plan 1. Acute kidney injury superimposed on chronic kidney disease.? Acute kidneyinjury is most likely due to hypoperfusion from volume depletion.? No evidenceof obstruction.? Most recently, he has any active glomerular interstitial disease at this time. 2. Hypernatremia due to free water deficit. 3. Small bowel obstruction. ? RECOMMENDATION:? Continue to hydrate him with hypotonic fluids.? - half-normal saline and keep intake more than the output.? The renal function is improving.? No indication for dialysis.? .? Watch urine output.? He is currently nonoliguric. Shall follow along with team? ? Time Spent With Patient Time: Total time managing care of this patient today ____ minutes. Progress Note: Quality Stroke Does the patient have a stroke diagnosis?: No
[2022-10-07] MEDS: Acetaminophen 325 MG TABLET 650 MG PO (11:39)
[2022-10-07 11:44] VITALS: BP 137/88; PULSE 52; RESP 20; TEMP 36.2; O2SAT 93
[2022-10-07 16:00] VITALS: BP 131/60; PULSE 57; RESP 16; TEMP 36; O2SAT 95
[2022-10-07] MEDS: Loperamide HCl 2 MG CAPSULE 4 MG PO (17:32)
[2022-10-07] MEDS: Simethicone 80 MG TAB.CHEW PO (18:38)
[2022-10-07 19:23] VITALS: BP 139/64; PULSE 59; RESP 16; TEMP 36.3; O2SAT 95
[2022-10-07] MEDS: clomiPRAMINE HCl 25 MG CAPSULE 100 MG PO (21:15)
[2022-10-07] MEDS: cloZAPine 100 MG TABLET 200 MG PO (21:16)
[2022-10-08] VITALS (7 sets, daily range): BP systolic 127–167; BP diastolic 60–84; PULSE 52–86; RESP 14–20; TEMP 36–36.6; O2SAT 93–96
[2022-10-08] MEDS: Ampicillin Sodium/Sulbactam Na 1.5 GM in 0.9 % Sodium Chloride 100 ML IV ×2 (03:05→15:14)
[2022-10-08] MEDS: Dextrose 5 % and 0.45 % NaCl 1,000 ML 125 ML IVCONT ×2 (03:52→11:32)
[2022-10-08] MEDS: Hydrocortisone Sod Succ/PF 100 MG VIAL IVPUSH (05:27)
[2022-10-08 07:21] LABS: Anion Gap 13 (12-20); Blood Urea Nitrogen 69 mg/dL (9-16); Calcium 8.5 mg/dL (8.4-10.2); Carbon Dioxide 24 mmol/L (22-29); Chloride 108 mmol/L (96-108); Creatinine Clr Calc Pharmacy 41.5; Estimated Glomerular Filt Rate 32; Glucose Random 145 mg/dL (60-115); Potassium 3.2 mmol/L (3.3-5.1); Sodium 142 mmol/L (135-145)
[2022-10-08] MEDS: Potassium Chloride Packet 20 MEQ PACKET 40 MEQ PO (10:41)
[2022-10-08] MEDS: Ferrous Sulfate 324 MG TABLET.DR PO (10:41)
[2022-10-08] MEDS: Ascorbic Acid 500 MG TABLET PO (10:41)
[2022-10-08] MEDS: Gabapentin 300 MG CAPSULE PO ×3 (10:41→20:09)
[2022-10-08] MEDS: Fenofibrate 160 MG TABLET PO (10:41)
[2022-10-08] MEDS: Pramipexole Di-HCL 1 MG TABLET PO (10:41)
[2022-10-08] MEDS: Multivitamin TABLET 1 TAB PO (10:41)
[2022-10-08] MEDS: Escitalopram Oxalate 10 MG TABLET PO (10:41)
--- NOTE | 2022-10-08 10:54 | PM.PNGS ---
Subjective Subjective Date of Service: 10/08/22 Interval history: NG tube removed yesterday as per nurse, no events reported overnight seems to be tolerating clear liquids well Physical Exam Vital Signs: Vital Signs: Last Vital Signs Temp 97.4 F 10/08/22 07:39 Pulse 64 10/08/22 07:39 Resp 20 10/08/22 07:39 BP 158/84 H 10/08/22 07:39 Pulse Ox 94 10/08/22 07:39 O2 Del Method 10/08/22 07:39 O2 Flow Rate 3 10/08/22 07:39 BMI result Body Mass Index 36.1 Const: General: comfortable and no acute distress Resp: Effort & Inspection: normal respiratory effort Cardio: Rate: regular rate GI: Palpation (GI): Soft to palpation, not firm and nontender Objective Data Active Medications Acetaminophen (Acetaminophen 325 Mg Tablet) 650 mg PO Q6H PRN PRN Reason: Pain, Mild, fever Last Admin: 10/07/22 11:39 Dose: 650 mg Documented By: KENISHA Ascorbic Acid (Ascorbic Acid 500 Mg Tablet) 500 mg PO DAILY [facility] Last Admin: 10/08/22 10:41 Dose: 500 mg Documented By: VESTA Bisacodyl (Bisacodyl 10 Mg Supp.Rect) 10 mg [place] DAILY PRN PRN Reason: Constipation Calcitriol (Calcitriol 0.25 Mcg Capsule) 0.25 mcg PO TuFr@0900 [facility] Last Admin: 10/06/22 09:37 Dose: Not Given Documented By: BERRY Non-Admin Reason: NPO Clomipramine HCl (Clomipramine Hcl 25 Mg Capsule) 100 mg PO BEDTIME [facility] Last Admin: 10/07/22 21:15 Dose: 100 mg Documented By: RADHA Clozapine (Clozapine 100 Mg Tablet) 200 mg PO BEDTIME [facility] Last Admin: 10/07/22 21:16 Dose: 200 mg Documented By: RADHA Escitalopram Oxalate (Escitalopram Oxalate 10 Mg Tablet) 10 mg PO DAILY [facility] Last Admin: 10/08/22 10:41 Dose: 10 mg Documented By: VESTA Fenofibrate (Fenofibrate 160 Mg Tablet) 160 mg PO DAILY [facility] Last Admin: 10/08/22 10:41 Dose: 160 mg Documented By: VESTA Ferrous Sulfate (Ferrous Sulfate 324 Mg Tablet.) 324 mg PO DAILY [facility] Last Admin: 10/08/22 10:41 Dose: 324 mg Documented By: VESTA Fludrocortisone Acetate (Fludrocortisone Acetate 0.1 Mg Tablet) 0.2 mg PO DAILY [facility] Last Admin: 10/05/22 19:10 Dose: Not Given Documented By: BETO Non-Admin Reason: See Note Gabapentin (Gabapentin 300 Mg Capsule) 300 mg PO TID [facility] Last Admin: 10/08/22 10:41 Dose: 300 mg Documented By: VESTA Heparin Sodium (Porcine) (Heparin Sodium,Porcine 5,000 Unit/Ml Vial) 5,000 unit SUBCUT Q12H [facility] Last Admin: 10/08/22 00:10 Dose: Not Given Documented By: RADHA Non-Admin Reason: Patient Asleep Hydrocortisone Sodium Succinate (Hydrocortisone Sod Succ/Pf 100 Mg Vial) 100 mg IVPUSH Q8H [facility] Last Admin: 10/08/22 05:27 Dose: 100 mg Documented By: RADHA Ampicillin Sodium/Sulbactam (Sodium 1.5 gm/ Sodium Chloride) 100 mls @ 200 mls/hr IV Q12H [facility] Last Infusion: 10/08/22 03:51 Dose: 0 mls/hr Documented By: RADHA Dextrose/Sodium Chloride (D51/2ns) 1,000 mls @ 125 mls/hr IVCONT .Q8H [facility] Last Admin: 10/08/22 03:52 Dose: 125 mls/hr Documented By: RADHA Loperamide HCl (Loperamide Hcl 2 Mg Capsule) 4 mg PO Q6H PRN PRN Reason: Diarrhea Last Admin: 10/07/22 17:32 Dose: 4 mg Documented By: KENISHA Loratadine (Loratadine 10 Mg Tablet) 10 mg PO DAILY PRN PRN Reason: Allergy Symptoms Midodrine (Midodrine Hcl 10 Mg Tablet) 20 mg PO BID [facility] Last Admin: 10/08/22 10:42 Dose: Not Given Documented By: VESTA Non-Admin Reason: Physician Held Med Multivitamins/Vitamin C (Multivitamin Tablet) 1 tab PO DAILY [facility] Last Admin: 10/08/22 10:41 Dose: 1 tab Documented By: VESTA Non-Formulary Medication (Sofosbuvir-Velpatasvir [Epclusa]) 1 tab PO DAILY [facility] Ondansetron HCl (Ondansetron Hcl 4 Mg/2 Ml Vial) 4 mg IVPUSH Q8H PRN PRN Reason: Nausea and Vomiting Pharmacy Consult (Consult Rx Perform Med Rec) 1 each MISCELLANE ONCE PRN PRN Reason: Consult order Pramipexole Dihydrochloride (Pramipexole Di-Hcl 1 Mg Tablet) 1 mg PO DAILY [facility] Last Admin: 10/08/22 10:41 Dose: 1 mg Documented By: VESTA Simethicone (Simethicone 80 Mg Tab.Chew) 80 mg PO QIDWMHS PRN PRN Reason: gas and bloating Last Admin: 10/07/22 18:38 Dose: 80 mg Documented By: RILEY Sodium Chloride (0.9 % Sodium Chloride Flush 3 Ml Syringe) 3 ml IVFLUSH QSHIFT [facility] Last Admin: 10/08/22 10:42 Dose: Not Given Documented By: VESTA Non-Admin Reason: IV Running Labs 10/07/22 06:38 10/08/22 06:56 Labs: Laboratory Results - last 24 hr 10/08/22 06:56 Anion Gap 13 Estim Creat Clear Calc 41.5 Estimated GFR 32 Random Glucose 145 H Calcium 8.5 Microbiology Microbiology Results: Microbiology 10/05/22 06:58 Blood Culture - Final Blood - Venous Escherichia coli 10/05/22 06:58 Blood Culture - Final Blood - Venous Coag negative Staphylococcus Procedures Date of Service Date of Service: 10/08/22 Progress Note: A&P Assessment and plan (1) Partial small bowel obstruction: Status: Acute Assessment and Plan: clinically resolved diet as tolerated if he continues to tolerate regular diet, okay to DC back to the long term from surgical standpoint creatinine improving abdomen remains soft and benign Time Spent With Patient Time: Total time managing care of this patient today ____ minutes. Quality Stroke Does the patient have a stroke diagnosis?: No VTE Prior VTE?: No VTE Risk Level:: Medical - moderate - high VTE Device Contraindication: Treatment Not Indicated VTE Drug Contraindication: N/A - Med Ordered
[2022-10-08] MEDS: Simethicone 80 MG TAB.CHEW PO (12:14)
[2022-10-08] MEDS: Heparin Sodium,Porcine 5,000 UNIT/ML VIAL 5000 UNIT SUBCUT (12:14)
--- NOTE | 2022-10-08 12:35 | HO.PM.IMPN ---
Subjective Subjective Date of Service: 10/08/22 Interval History: cc: abd pain interval history:much better, passing stool, wants solids Physical Exam Vital Signs: Vital Signs: Last Vital Signs Temp 97.4 F 10/08/22 07:39 Pulse 64 10/08/22 07:39 Resp 20 10/08/22 07:39 BP 158/84 H 10/08/22 07:39 Pulse Ox 94 10/08/22 07:39 O2 Del Method 10/08/22 07:39 O2 Flow Rate 3 10/08/22 07:39 BMI result Body Mass Index 36.1 Const: General: comfortable and no acute distress Resp: Effort & Inspection: normal respiratory effort Cardio: Rate: regular rate GI: Palpation (GI): Soft to palpation, not firm and nontender Objective Data Active Medications Acetaminophen (Acetaminophen 325 Mg Tablet) 650 mg PO Q6H PRN PRN Reason: Pain, Mild, fever Last Admin: 10/07/22 11:39 Dose: 650 mg Documented By: KENISHA Ascorbic Acid (Ascorbic Acid 500 Mg Tablet) 500 mg PO DAILY [facility] Last Admin: 10/08/22 10:41 Dose: 500 mg Documented By: VESTA Bisacodyl (Bisacodyl 10 Mg Supp.Rect) 10 mg [place] DAILY PRN PRN Reason: Constipation Calcitriol (Calcitriol 0.25 Mcg Capsule) 0.25 mcg PO TuFr@0900 [facility] Last Admin: 10/06/22 09:37 Dose: Not Given Documented By: BERRY Non-Admin Reason: NPO Clomipramine HCl (Clomipramine Hcl 25 Mg Capsule) 100 mg PO BEDTIME [facility] Last Admin: 10/07/22 21:15 Dose: 100 mg Documented By: RADHA Clozapine (Clozapine 100 Mg Tablet) 200 mg PO BEDTIME [facility] Last Admin: 10/07/22 21:16 Dose: 200 mg Documented By: RADHA Escitalopram Oxalate (Escitalopram Oxalate 10 Mg Tablet) 10 mg PO DAILY [facility] Last Admin: 10/08/22 10:41 Dose: 10 mg Documented By: VESTA Fenofibrate (Fenofibrate 160 Mg Tablet) 160 mg PO DAILY [facility] Last Admin: 10/08/22 10:41 Dose: 160 mg Documented By: VESTA Ferrous Sulfate (Ferrous Sulfate 324 Mg Tablet.) 324 mg PO DAILY [facility] Last Admin: 10/08/22 10:41 Dose: 324 mg Documented By: VESTA Fludrocortisone Acetate (Fludrocortisone Acetate 0.1 Mg Tablet) 0.2 mg PO DAILY [facility] Last Admin: 10/05/22 19:10 Dose: Not Given Documented By: BETO Non-Admin Reason: See Note Gabapentin (Gabapentin 300 Mg Capsule) 300 mg PO TID [facility] Last Admin: 10/08/22 10:41 Dose: 300 mg Documented By: VESTA Heparin Sodium (Porcine) (Heparin Sodium,Porcine 5,000 Unit/Ml Vial) 5,000 unit SUBCUT Q12H [facility] Last Admin: 10/08/22 12:14 Dose: 5,000 unit Documented By: VESTA Hydrocortisone Sodium Succinate (Hydrocortisone Sod Succ/Pf 100 Mg Vial) 100 mg IVPUSH Q8H [facility] Last Admin: 10/08/22 05:27 Dose: 100 mg Documented By: RADHA Ampicillin Sodium/Sulbactam (Sodium 1.5 gm/ Sodium Chloride) 100 mls @ 200 mls/hr IV Q12H [facility] Last Infusion: 10/08/22 03:51 Dose: 0 mls/hr Documented By: RADHA Loperamide HCl (Loperamide Hcl 2 Mg Capsule) 4 mg PO Q6H PRN PRN Reason: Diarrhea Last Admin: 10/07/22 17:32 Dose: 4 mg Documented By: KENISHA Loratadine (Loratadine 10 Mg Tablet) 10 mg PO DAILY PRN PRN Reason: Allergy Symptoms Midodrine (Midodrine Hcl 10 Mg Tablet) 20 mg PO BID [facility] Last Admin: 10/08/22 10:42 Dose: Not Given Documented By: VESTA Non-Admin Reason: Physician Held Med Multivitamins/Vitamin C (Multivitamin Tablet) 1 tab PO DAILY [facility] Last Admin: 10/08/22 10:41 Dose: 1 tab Documented By: VESTA Non-Formulary Medication (Sofosbuvir-Velpatasvir [Epclusa]) 1 tab PO DAILY [facility] Ondansetron HCl (Ondansetron Hcl 4 Mg/2 Ml Vial) 4 mg IVPUSH Q8H PRN PRN Reason: Nausea and Vomiting Pharmacy Consult (Consult Rx Perform Med Rec) 1 each MISCELLANE ONCE PRN PRN Reason: Consult order Pramipexole Dihydrochloride (Pramipexole Di-Hcl 1 Mg Tablet) 1 mg PO DAILY [facility] Last Admin: 10/08/22 10:41 Dose: 1 mg Documented By: VESTA Simethicone (Simethicone 80 Mg Tab.Chew) 80 mg PO QIDWMHS PRN PRN Reason: gas and bloating Last Admin: 10/08/22 12:14 Dose: 80 mg Documented By: VESTA Sodium Chloride (0.9 % Sodium Chloride Flush 3 Ml Syringe) 3 ml IVFLUSH QSHIFT [facility] Last Admin: 10/08/22 10:42 Dose: Not Given Documented By: VESTA Non-Admin Reason: IV Running Labs 10/07/22 06:38 10/08/22 06:56 Labs: Laboratory Results - last 24 hr 10/08/22 06:56 Anion Gap 13 Estim Creat Clear Calc 41.5 Estimated GFR 32 Random Glucose 145 H Calcium 8.5 Microbiology Microbiology Results: Microbiology 10/05/22 06:58 Blood Culture - Final Blood - Venous Escherichia coli 10/05/22 06:58 Blood Culture - Final Blood - Venous Coag negative Staphylococcus Assessment and Plan (1) Partial small bowel obstruction: Status: Acute (2) JOSE L (acute kidney injury): Status: Acute Plan 67 year old male with history of TBI, BPH, orthostatic hypotension, chronic hepatitis C on epclusa, hld, epilepsy, secondary hyperparathyroidism of renal origin, GERD, schizoaffective disorder, urinary retention, osteoporosis, gait/mobility impairment, ADHD, and CKD stage 3 Acute Partial SBO resolved advance to solids 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 Continue clozaril. Will continue monitoring ANC levels -[facility] contacted to complete Patient Status Forms per [facility] for ongoing clozapine administration DVT prophylaxis- heparin Full code reason for continued hospitalization: monitoring tolerance of solids, hypernatremia without ivf Time Spent With Patient Time: Total time managing care of this patient today ____ minutes. Quality Stroke Does the patient have a stroke diagnosis?: No VTE Prior VTE?: No VTE Risk Level:: Medical - moderate - high VTE Device Contraindication: Treatment Not Indicated VTE Drug Contraindication: N/A - Med Ordered
[2022-10-08] MEDS: Hydrocortisone 10 MG TABLET PO ×2 (15:14→20:08)
--- NOTE | 2022-10-08 15:37 | PM.PNNEP ---
Subjective Subjective Date of Service: 10/08/22 Interval history: Events noted Physical Exam Vital Signs: Vital Signs: Last Vital Signs Temp 96.8 F 10/08/22 15:19 Pulse 78 10/08/22 15:19 Resp 16 10/08/22 15:19 BP 152/70 H 10/08/22 15:19 Pulse Ox 96 10/08/22 15:19 O2 Del Method 10/08/22 15:19 O2 Flow Rate 2.5 10/08/22 15:19 BMI result Body Mass Index 36.1 Const: Other: appears drowsy General: comfortable and no acute distress Resp: Effort & Inspection: normal respiratory effort Cardio: Rate: regular rate and tachycardic GI: Other: soft, although protuberant and mildly distended with no guarding or rebound, no obvious tenderness at this time Inspection: No distended Palpation (GI): Soft to palpation, not firm, nontender and no guarding Objective Data Labs 10/07/22 06:38 10/08/22 06:56 Labs: Laboratory Results - last 24 hr 10/08/22 06:56 Sodium 142 Potassium 3.2 L Chloride 108 Carbon Dioxide 24 Anion Gap 13 BUN 69 H Creatinine 2.08 H Estim Creat Clear Calc 41.5 Estimated GFR 32 Random Glucose 145 H Calcium 8.5 Microbiology Microbiology Results: Microbiology 10/05/22 06:58 Blood - Venous Blood Culture - Final Escherichia coli 10/05/22 06:58 Blood - Venous Blood Culture - Final Coag negative Staphylococcus Procedures Date of Service Date of Service: 10/08/22 Assessment & Plan Assessment and plan (1) JOSE L (acute kidney injury): Status: Acute Plan 1. Acute kidney injury superimposed on chronic kidney disease.? Acute kidneyinjury is most likely due to hypoperfusion from volume depletion.? No evidenceof obstruction.? Most recently, he has any active glomerular interstitial disease at this time. 2. Hypernatremia due to free water deficit. 3. Small bowel obstruction. ? RECOMMENDATION:? Continue to hydrate him with hypotonic fluids.? - half-normal saline and keep intake more than the output.? The renal function is improving.? No indication for dialysis.? .? Watch urine output.? He is currently nonoliguric. Shall follow along with team? ? Time Spent With Patient Time: Total time managing care of this patient today ____ minutes. Progress Note: Quality Stroke Does the patient have a stroke diagnosis?: No
[2022-10-08] MEDS: clomiPRAMINE HCl 25 MG CAPSULE 100 MG PO (20:08)
[2022-10-08] MEDS: 0.9 % Sodium Chloride Flush 3 ML SYRINGE IVFLUSH (20:09)
[2022-10-08] MEDS: cloZAPine 100 MG TABLET 200 MG PO (20:09)
[2022-10-09] MEDS: Ampicillin Sodium/Sulbactam Na 1.5 GM in 0.9 % Sodium Chloride 100 ML IV ×2 (01:25→14:33)
[2022-10-09] MEDS: Heparin Sodium,Porcine 5,000 UNIT/ML VIAL 5000 UNIT SUBCUT ×2 (01:25→13:02)
[2022-10-09 03:53] VITALS: BP 130/86; PULSE 76; RESP 16; TEMP 36.2; O2SAT 93
[2022-10-09] MEDS: Acetaminophen 325 MG TABLET 650 MG PO (05:36)
[2022-10-09 05:54] LABS: Hematocrit 37.7 % (42.0-52.0); Hemoglobin 12.2 g/dl (14.0-18.0); Mean Corpuscular HGB Conc 32.4 g/dl (31.0-36.0); Mean Corpuscular Hemoglobin 28.9 pg (27.0-33.0); Mean Corpuscular Volume 89.3 fL (80.0-98.0); Mean Platelet Volume 9.6 fL (9.4-12.4); Platelet Count 139 X10*3/uL (160-400); Red Blood Count 4.22 X10*6/uL (4.60-5.80); Red Cell Distribution Width 12.6 % (11.0-16.0); White Blood Count 13.3 X10*3/uL (4.8-10.8)
[2022-10-09 06:26] LABS: Anion Gap 13 (12-20); Blood Urea Nitrogen 55 mg/dL (9-16); Calcium 8.4 mg/dL (8.4-10.2); Carbon Dioxide 25 mmol/L (22-29); Chloride 108 mmol/L (96-108); Creatinine Clr Calc Pharmacy 47.2; Estimated Glomerular Filt Rate 37; Glucose Fasting 104 mg/dL (60-99); Potassium 3.1 mmol/L (3.3-5.1); Sodium 143 mmol/L (135-145)
[2022-10-09 07:53] VITALS: BP 162/86; PULSE 81; RESP 20; TEMP 36.6; O2SAT 97
[2022-10-09] MEDS: Multivitamin TABLET 1 TAB PO (08:11)
[2022-10-09] MEDS: Gabapentin 300 MG CAPSULE PO ×2 (08:11→14:33)
[2022-10-09] MEDS: Ferrous Sulfate 324 MG TABLET.DR PO (08:11)
[2022-10-09] MEDS: Potassium Chloride Packet 20 MEQ PACKET 40 MEQ PO (08:11)
[2022-10-09] MEDS: 0.9 % Sodium Chloride Flush 3 ML SYRINGE IVFLUSH (08:11)
[2022-10-09] MEDS: calcitrioL 0.25 MCG CAPSULE PO (08:11)
[2022-10-09] MEDS: Ascorbic Acid 500 MG TABLET PO (08:12)
[2022-10-09] MEDS: Fenofibrate 160 MG TABLET PO (08:12)
[2022-10-09] MEDS: Pramipexole Di-HCL 1 MG TABLET PO (08:12)
[2022-10-09] MEDS: Hydrocortisone 10 MG TABLET PO ×2 (08:12→14:33)
[2022-10-09] MEDS: Escitalopram Oxalate 10 MG TABLET PO (08:12)
--- NOTE | 2022-10-09 08:49 | PM.PNGS ---
Subjective Subjective Date of Service: 10/09/22 Interval history: says he has good appetite tolerating diet well denies abdominal pain does state he has reflux Physical Exam Vital Signs: Vital Signs: Last Vital Signs Temp 97.9 F 10/09/22 07:53 Pulse 81 10/09/22 07:53 Resp 20 10/09/22 07:53 BP 162/86 H 10/09/22 07:53 Pulse Ox 97 10/09/22 07:53 O2 Del Method 10/09/22 07:53 O2 Flow Rate 2.5 10/09/22 07:53 BMI result Body Mass Index 36.1 Const: General: comfortable and no acute distress Resp: Effort & Inspection: normal respiratory effort Cardio: Rate: regular rate GI: Palpation (GI): Soft to palpation, not firm, nontender and no guarding Objective Data Active Medications Acetaminophen (Acetaminophen 325 Mg Tablet) 650 mg PO Q6H PRN PRN Reason: Pain, Mild, fever Last Admin: 10/09/22 05:36 Dose: 650 mg Documented By: LONNIE Ascorbic Acid (Ascorbic Acid 500 Mg Tablet) 500 mg PO DAILY [facility] Last Admin: 10/09/22 08:12 Dose: 500 mg Documented By: VESTA Bisacodyl (Bisacodyl 10 Mg Supp.Rect) 10 mg [place] DAILY PRN PRN Reason: Constipation Calcitriol (Calcitriol 0.25 Mcg Capsule) 0.25 mcg PO TuFr@0900 [facility] Last Admin: 10/09/22 08:11 Dose: 0.25 mcg Documented By: VESTA Clomipramine HCl (Clomipramine Hcl 25 Mg Capsule) 100 mg PO BEDTIME [facility] Last Admin: 10/08/22 20:08 Dose: 100 mg Documented By: LONNIE Clozapine (Clozapine 100 Mg Tablet) 200 mg PO BEDTIME [facility] Last Admin: 10/08/22 20:09 Dose: 200 mg Documented By: LONNIE Escitalopram Oxalate (Escitalopram Oxalate 10 Mg Tablet) 10 mg PO DAILY [facility] Last Admin: 10/09/22 08:12 Dose: 10 mg Documented By: VESTA Fenofibrate (Fenofibrate 160 Mg Tablet) 160 mg PO DAILY [facility] Last Admin: 10/09/22 08:12 Dose: 160 mg Documented By: VESTA Ferrous Sulfate (Ferrous Sulfate 324 Mg Tablet.) 324 mg PO DAILY [facility] Last Admin: 10/09/22 08:11 Dose: 324 mg Documented By: VESTA Fludrocortisone Acetate (Fludrocortisone Acetate 0.1 Mg Tablet) 0.2 mg PO DAILY [facility] Last Admin: 10/05/22 19:10 Dose: Not Given Documented By: BETO Non-Admin Reason: See Note Gabapentin (Gabapentin 300 Mg Capsule) 300 mg PO TID [facility] Last Admin: 10/09/22 08:11 Dose: 300 mg Documented By: VESTA Heparin Sodium (Porcine) (Heparin Sodium,Porcine 5,000 Unit/Ml Vial) 5,000 unit SUBCUT Q12H [facility] Last Admin: 10/09/22 01:25 Dose: 5,000 unit Documented By: LONNIE Hydrocortisone (Hydrocortisone 10 Mg Tablet) 10 mg PO TID [facility] Last Admin: 10/09/22 08:12 Dose: 10 mg Documented By: VESTA Ampicillin Sodium/Sulbactam (Sodium 1.5 gm/ Sodium Chloride) 100 mls @ 200 mls/hr IV Q12H [facility] Last Infusion: 10/09/22 02:21 Dose: 0 mls/hr Documented By: LONNIE Loperamide HCl (Loperamide Hcl 2 Mg Capsule) 4 mg PO Q6H PRN PRN Reason: Diarrhea Last Admin: 10/07/22 17:32 Dose: 4 mg Documented By: KENISHA Loratadine (Loratadine 10 Mg Tablet) 10 mg PO DAILY PRN PRN Reason: Allergy Symptoms Midodrine (Midodrine Hcl 10 Mg Tablet) 20 mg PO BID [facility] Last Admin: 10/08/22 10:42 Dose: Not Given Documented By: VESTA Non-Admin Reason: Physician Held Med Multivitamins/Vitamin C (Multivitamin Tablet) 1 tab PO DAILY [facility] Last Admin: 10/09/22 08:11 Dose: 1 tab Documented By: VESTA Non-Formulary Medication (Sofosbuvir-Velpatasvir [Epclusa]) 1 tab PO DAILY [facility] Ondansetron HCl (Ondansetron Hcl 4 Mg/2 Ml Vial) 4 mg IVPUSH Q8H PRN PRN Reason: Nausea and Vomiting Pharmacy Consult (Consult Rx Perform Med Rec) 1 each MISCELLANE ONCE PRN PRN Reason: Consult order Pramipexole Dihydrochloride (Pramipexole Di-Hcl 1 Mg Tablet) 1 mg PO DAILY [facility] Last Admin: 10/09/22 08:12 Dose: 1 mg Documented By: VESTA Simethicone (Simethicone 80 Mg Tab.Chew) 80 mg PO QIDWMHS PRN PRN Reason: gas and bloating Last Admin: 10/08/22 12:14 Dose: 80 mg Documented By: VESTA Sodium Chloride (0.9 % Sodium Chloride Flush 3 Ml Syringe) 3 ml IVFLUSH QSHIFT [facility] Last Admin: 10/09/22 08:11 Dose: 3 ml Documented By: VESTA Labs 10/09/22 05:31 10/09/22 05:31 Labs: Laboratory Results - last 24 hr 10/09/22 10/09/22 05:31 05:31 MCV 89.3 MCH 28.9 MCHC 32.4 RDW 12.6 Plt Count 139 L MPV 9.6 Absolute Nucleated RBC 0.000 Nucleated RBC % (auto) 0.0 Anion Gap 13 Estim Creat Clear Calc 47.2 Estimated GFR 37 Fasting Glucose 104 H Calcium 8.4 Procedures Date of Service Date of Service: 10/09/22 Progress Note: A&P Assessment and plan (1) Partial small bowel obstruction: Status: Acute Assessment and Plan: symptoms have resolved tolerating diet remains soft and benign okay to DC back to retirement from surgical standpoint Time Spent With Patient Time: Total time managing care of this patient today ____ minutes. Quality Stroke Does the patient have a stroke diagnosis?: No VTE Prior VTE?: No VTE Risk Level:: Medical - moderate - high VTE Device Contraindication: Treatment Not Indicated VTE Drug Contraindication: N/A - Med Ordered
--- NOTE | 2022-10-09 09:58 | P.CDIC_ITS ---
CDI Concurrent Query Documentation Clarification: PHYSICIAN'S DOCUMENTATION REQUEST Date of Query: 10/09/22 0959 Patient Name: Lamin Haddad Admit Date: 10/05/22 Dear Doctor, A review of the medical record indicates additional documentation may be needed. Please review below and update the documentation accordingly. Risk Factors/Clinical Indicators/Treatments 10/07/22:BUN 94/Creatinine 2.66, Est GFR 24 10/07/22 progress note:CKD stage 3- wi th acute kidney injury 10/08/22:?MD progress note: JOSE L on CKD IV , back to baseline Please clarify the documentation of CKD: * CKD 4 remains a known or suspected condition for this patient and is further supported by (include additional documentation in the medical record) * CKD 4 has been ruled out and a more appropriate diagnosis for this patient?s condition is CKD 3 * Other (please specify) * Unable to determine Use of terms such as suspected, likely, concern for, or probable (associated with a specific diagnosis that is being evaluated, monitored, or treated as if it exists) are acceptable and can be coded in the inpatient setting, when documented at the time of discharge. Thank you, Bryanna Miller RN Extension: [phone] Please use your independent medical judgment in providing your response. THIS QUERY IS PART OF THE PERMANENT MEDICAL RECORD Provider Response: CKD Stage 3
--- NOTE | 2022-10-09 10:49 | PC.NURSE ---
removed patient's craven catheter at 1048. Pt tolerated well. DTV by 184
--- NOTE | 2022-10-09 11:58 | P.PNNP_ITS ---
Subjective Subjective Date of Service: 10/09/22 Interval history: Events noted c/o abd discomfort Physical Exam Vital Signs: Vital Signs: Last Vital Signs Temp 97.9 F 10/09/22 07:53 Pulse 81 10/09/22 07:53 Resp 20 10/09/22 07:53 BP 162/86 H 10/09/22 07:53 Pulse Ox 97 10/09/22 07:53 O2 Del Method 10/09/22 07:53 O2 Flow Rate 2.5 10/09/22 07:53 BMI result Body Mass Index 36.1 Const: General: comfortable and no acute distress Resp: Effort & Inspection: normal respiratory effort Cardio: Rate: regular rate GI: Palpation (GI): Soft to palpation, not firm, nontender and no guarding Objective Data Labs 10/09/22 05:31 10/09/22 05:31 Labs: Laboratory Results - last 24 hr 10/09/22 10/09/22 05:31 05:31 WBC 13.3 H RBC 4.22 L Hgb 12.2 L Hct 37.7 L MCV 89.3 MCH 28.9 MCHC 32.4 RDW 12.6 Plt Count 139 L MPV 9.6 Absolute Nucleated RBC 0.000 Nucleated RBC % (auto) 0.0 Sodium 143 Potassium 3.1 L Chloride 108 Carbon Dioxide 25 Anion Gap 13 BUN 55 H Creatinine 1.83 H Estim Creat Clear Calc 47.2 Estimated GFR 37 Fasting Glucose 104 H Calcium 8.4 Microbiology Microbiology Results: Microbiology 10/05/22 06:58 Blood - Venous Blood Culture - Final Escherichia coli 10/05/22 06:58 Blood - Venous Blood Culture - Final Coag negative Staphylococcus Procedures Date of Service Date of Service: 10/09/22 Assessment & Plan Assessment and plan (1) JOSE L (acute kidney injury): Status: Acute Plan 1. Acute kidney injury superimposed on chronic kidney disease.? Acute kidneyinjury is most likely due to hypoperfusion from volume depletion.? No evidenceof obstruction.? Most recently, he has any active glomerular interst itial disease at this time. 2. Hypernatremia due to free water deficit. 3. Small bowel obstruction. ? RECOMMENDATION:? Continue to hydrate him with hypotonic fluids.? keep intake more than the output.? The renal function is improving.? No indication for dialysis.? .? Watch urine output.? He is currently nonoliguric. Will follow along with team? ? Time Spent With Patient Time: Total time managing care of this patient today ____ minutes. Progress Note: Quality Stroke Does the patient have a stroke diagnosis?: No
[2022-10-09 12:00] VITALS: BP 140/86; PULSE 89; RESP 20; TEMP 36.1; O2SAT 95
--- NOTE | 2022-10-09 12:15 | P.DS_ITS ---
DS: Providers Provider Date of Service: 10/09/22 Date of admission: 10/05/22 11:52 Primary care physician: Forest Wood DO Consults: 10/05/22 13:22 Consult to General Surgery Routine Consulting Provider: Shemar Gama Reason for consultation: sbo 10/06/22 09:23 Consult to Nephrology Routine Consulting Provider: Feliberto Downing Reason for consultation: JOSE L, hypernatremia DS: Diagnosis Discharge Diagnosis (1) JOSE L (acute kidney injury): Status: Acute DS: Summary Hospital Course Hospital Course: from initial hpi: Chief Complaint: nausea, vomiting, abd pain 67 year old male with history of TBI, BPH, orthostatic hypotension, chronic hepatitis C on epclusa, hld, epilepsy, secondary hyperparathyroidism of renal origin, GERD, schizoaffective disorder, urinary retention, osteoporosis, gait/ mobility impairment, ADHD, and CKD stage 3 presented to the ED via EMS from [facility] for further evaluation of abdominal distension, decreased PO intake, generalized weakness, as well as N/V/D ongoing x3 days per residential staff. Pt is a limited historian though is A&Ox3. On arrival pt afebrile, tachycardic to 130, tachypneic to 28, hypoxic to 85%, placed on 4L supplemental O2 (not on home O2). No leukocytosis. Cr 5.90 (baseline 1.65), BUN 116. Electrolytes normal. Initial lactic acid 2.3, repeat 1.4. UA unremarkable. CT abd/pelvis findings consistent with SBO. CXR showing hypoinflated lungs with left basilar atelectasis. NG tube placed. Case discussed with general surgery recommending admission. Given 1L IV NS and empiric dose zosyn. EKG showing sinus tach, rate 120. hospital course: patient was admitted for acute partial SBO, was treated with ivfs, NGT, began to have BMs, abd pain and nausea resolved, tolerating solids. for his JOSE L on CKD III with hypernatremia he was treated with hypotonice fluids with improvement back to baseline. CT abd without hydro. for acute hypoxic respiratory failure due to aspiratoin pneumonia vs pneumonitis, was treated with course of unasyn, weaned off o2. for his orhtostatic hypotension, was noted to have significant supine hypertension, midodrine has been held, this should be monitored as outpatient. for schizoaffective disorder he was continued on clozaril. patient is feeling better and will be discharged back to [facility]. Time Spent with Patient Time attestation: Total time managing care of this patient today ____ minutes. Discharge coordination time: Greater than 30 minutes Quality: Safe Use of Opioids Does Pt have an Active Cancer Diagnosis on the Problem List?: No Quality: Stroke Does the patient have a stroke diagnosis?: No Physical Exam Vital Signs: Vital Signs: Last Vital Signs Temp 97.9 F 10/09/22 07:53 Pulse 81 10/09/22 07:53 Resp 20 10/09/22 07:53 BP 162/86 H 10/09/22 07:53 Pulse Ox 97 10/09/22 07:53 O2 Del Method 10/09/22 07:53 O2 Flow Rate 2.5 10/09/22 07:53 BMI result Body Mass Index 36.1 Const: General: comfortable and no acute distress Resp: Effort & Inspection: normal respiratory effort Cardio: Rate: regular rate GI: Palpation (GI): Soft to palpation, not firm, nontender and no guarding DS: Data Data Completed and Pending Labs on day of discharge: Laboratory Results - last 24 hr 10/09/22 10/09/22 05:31 05:31 WBC 13.3 H RBC 4.22 L Hgb 12.2 L Hct 37.7 L MCV 89.3 MCH 28.9 MCHC 32.4 RDW 12.6 Plt Count 139 L MPV 9.6 Absolute Nucleated RBC 0.000 Nucleated RBC % (auto) 0.0 Sodium 143 Potassium 3.1 L Chloride 108 Carbon Dioxide 25 Anion Gap 13 BUN 55 H Creatinine 1.83 H Estim Creat Clear Calc 47.2 Estimated GFR 37 Fasting Glucose 104 H Calcium 8.4 Discharge Plan Discharge Anticipated Discharge Date/Time: 10/09/22 12:10 Patient Disposition: Home, Self-Care Discharge Diagnosis: jose l, sbo Referrals: Forest Wood DO [Primary Care Provider] - 1 Week Discharge Medications: Continued sofosbuvir-velpatasvir [Epclusa] 400-100 mg Tablet 1 tab PO DAILY multivitamin Tablet 1 tab PO DAILY pramipexole 1 mg Tablet 1 mg PO DAILY sennosides [senna] 8.6 mg Tablet 8.6 mg PO DAILY PRN (Reason: Constipation) guaifenesin 100 mg/5 mL Liquid 200 mg PO Q4H PRN (Reason: Cough) ascorbic acid (vitamin C) [Vitamin C] 500 mg Tablet 500 mg PO DAILY ferrous sulfate 325 mg (65 mg iron) Tablet 325 mg PO DAILY gabapentin 300 mg Capsule 300 mg PO TID clomipramine 50 mg capsule 100 mg PO BEDTIME albuterol sulfate 90 mcg/actuation Hfa Aerosol Inhaler 2 puff INHALATION Q4H PRN (Reason: Wheezing) fludrocortisone 0.1 mg Tablet 0.2 mg PO DAILY calcitriol 0.25 mcg capsule 0.25 mcg PO TUFR docusate sodium 100 mg Tablet 200 mg PO DAILY loratadine 10 mg Tablet 10 mg PO DAILY PRN (Reason: Allergy Symptoms) escitalopram oxalate 10 mg Tablet 10 mg PO DAILY fenofibrate nanocrystallized 145 mg tablet 145 mg PO DAILY milk thistle 240 mg PO TID bisacodyl 10 mg Suppository 10 mg AR DAILY PRN (Reason: Constipation) hydrocortisone 10 mg Tablet 10 mg PO TID clozapine 200 mg tablet 200 mg PO BEDTIME alfuzosin 10 mg tablet extended release 24 hr 10 mg PO DAILY 90 Days Qty: 90 1RF Rx Instructions: administer after the same meal each day Discontinued oseltamivir [Tamiflu] 30 mg Capsule 30 mg PO DAILY Rx Instructions: FOR 14 DAYS STARTING 09/26/22 AND ENDING 10/10/22 midodrine 10 mg Tablet 20 mg PO BID loperamide 2 mg Tablet 4 mg PO Q6H PRN (Reason: Diarrhea) Discharge Orders: Discharge Order (Routine); Ordered 10/09/22 Ordered By: Jose Enrique Jean Diet: Advance to usual diet Activity on Discharge: As tolerated Stand Alone Forms: Patient Portal Discharge page Care Plan Goals: recovery Health Concerns: jose l on ckd, sbo Plan of Treatment: hold midodrine for high bps, monitor bms, follow up with nephro Assessment: see above
[2022-10-09] MEDS: Loperamide HCl 2 MG CAPSULE 4 MG PO (13:02)
[2022-10-09] MEDS: Simethicone 80 MG TAB.CHEW PO (13:02)
[2022-10-09 13:14] LABS: COVID-19 Test Negative (Negative); IDNOW Serial# 9DB6401D
--- NOTE | 2022-10-09 14:53 | PC.NURSE ---
nurse to nurse report given to DEJON Noyola at [facility].
--- NOTE | 2022-10-09 15:02 | MHC.CM.PN ---
IMM 10/09/22 The patient is medically cleared for discharge. The DON @ [facility] has approved the patients return today. All discharge information and covid test result have been sent to the facility. Transport is booked for 3pm tow picker.
== END 2022-10-09 15:26 | disposition home or self-care (01) | DRG 388 ==
LOC: HO.ED 10:59 → HO.EDOVER 12:10 → HO.IMC 10-06 07:37
PROVIDERS: Emergency Medicine; Admitting Provider Physician Assistant; Emergency Provider Emergency Medicine; PCP Hospitalist; Visit Provider Internal Medicine
DX: K56.600 Partial intestinal obstruction, unspecified as to cause (principal); J69.0 Pneumonitis due to inhalation of food and vomit; J96.01 Acute respiratory failure with hypoxia; N17.9 Acute kidney failure, unspecified; E87.0 Hyperosmolality and hypernatremia; N25.81 Secondary hyperparathyroidism of renal origin; J98.11 Atelectasis; E87.20 Acidosis, unspecified; F90.9 Attention-deficit hyperactivity disorder, unspecified type; E86.0 Dehydration; I95.1 Orthostatic hypotension; N18.30 Chronic kidney disease, stage 3 unspecified; F25.9 Schizoaffective disorder, unspecified; K21.9 Gastro-esophageal reflux disease without esophagitis; Z20.822 Contact with and (suspected) exposure to COVID-19; Z86.19 Personal history of other infectious and parasitic diseases; Z87.820 Personal history of traumatic brain injury; Z87.891 Personal history of nicotine dependence; Z79.899 Other long term (current) drug therapy
CPT/HCPCS: 36415; 71045; 74018; 74176; 78580; 80048; 80076; 81001; 81003; 82947; 83605; 83690; 83735; 83880; 84484; 85007; 85025; 85027; 85379; 85610; 87040; 87077; 87147; 87186; 87205; 87502; 87635; 93005; 99285; A9540; C1758; J0295; J1643; J2543

== ENCOUNTER 2022-11-18 07:41 | Outpatient (REF) | payer MEDICARE, MEDICAID, SELFPAY ==
--- NOTE | ~2022-11-18 | US_ITS ---
EXAMINATION: US ABDOMEN COMPLETE CLINICAL INFORMATION: Chronic hepatitis C, cyst of kidney. COMPARISON: X-ray abdomen KUB 10/06/2022 and 10/05/2022. CT abdomen and pelvis without contrast 10/05/2022. TECHNIQUE: Real-time imaging of the abdominal viscera. FINDINGS: PANCREAS: There is an anechoic cyst measuring 1.9 x 1.0 x 1.0 cm. ABDOMINAL AORTA: The proximal, mid, and distal segments are normal in caliber. INFERIOR VENA CAVA: Visualized portions are normal. LIVER: Normal. The liver is normal in size. The liver contour is normal. Parenchymal echogenicity is normal. No focal hepatic lesion. There is no intrahepatic biliary duct dilatation seen. GALLBLADDER: Surgically absent. COMMON BILE DUCT: Normal in caliber measuring 0.4 cm in diameter. RIGHT KIDNEY: There are multiple anechoic cysts seen. No hydronephrosis or renal calculi. The kidney measures 11.9 cm in maximum dimension. LEFT KIDNEY: There are multiple anechoic cysts seen. No hydronephrosis or renal calculi. The kidney measures 11.2 cm in maximum dimension. SPLEEN: Normal. The spleen measures 14.4 cm in maximum dimension. There is small splenule adjacent to the spleen measuring 2.1 x 1.7 x 1.8 cm. FREE FLUID: None US/US abdomen complete IMPRESSION: 1. Bilateral renal cysts. Suspect polycystic kidney disease. No echogenic stones or hydronephrosis. 2. Small pancreatic cyst. 3. The rest of the abdominal ultrasound is unremarkable.
== END 2022-11-18 07:42 | disposition home or self-care (01) ==
LOC: HO.US 07:41
PROVIDERS: PCP Hospitalist; Visit Provider Hospitalist
DX: N28.1 Cyst of kidney, acquired (principal); B18.2 Chronic viral hepatitis C
CPT/HCPCS: 76700

== ENCOUNTER 2023-10-08 08:54 | Outpatient (AMB) | payer MEDICARE, MEDICAID, SELFPAY ==
--- NOTE | 2023-10-08 09:19 | A.OFFVIS_ITS ---
Intake Intake Visit Reasons: Retention- 6m follow up Intake Note: Patient is Present for Follow Up Urology Medication: Alfuzosin Antibiotic Allergies: None Blood Thinners: None PVR: 80 Allergies NSAIDS (Non-Steroidal Anti-Inflamma [NSAIDS (NON-STEROIDAL ANTI-INFLAMMA] Allergy (Unknown, Verified 10/08/23 09:20) UNKNOWN HPI HPI Comments History of Present Illness Details Lamin CARLOS is a very pleasant male. They are a patient of Dr Wood. They are seen in the office today for the following urologic conditions. - microscopic hematuria - neurogenic bladder - lower urinary tract symptoms PVR 80 cc Remains on alfuzosin Minimal accidents He is happy with his urination currently Creatinine 1.6 Schizoaffective disorder Longstanding anticholinergics side effect medications Lower urinary tract symptoms Primarily hesitancy and nocturia with terminal dribbling Current therapy alfuzosin Microscopic Hematuria:? Microscopic hematuria was diagnosed during?routine UA- evaulation for UTI ?- has a number of meds with anticholinergic side effects and may have difficulty initiating urination with incomplete emptying ?- no hematuria today.? Since the last visit the patient has?noticed gross hematuria ?- tests negative today.? Relevant medical history for?renal insufficiency, STDs, UTI's.? Radiographic imaging:?US renal 12/04 NAD.? Radiology report?no genitourinary abnormality.? Other investigations?01/04 cytology, , normal.? Cystoscopy findings?01/04 - meatal stenosis, small prostate, significant trabeculation and cellules, presumed neurogenic component.? Therapeutic plan?follow PRN - has anticholinergic side effects.? PFSH Medical History (Updated 10/05/22 @ 14:10 by ELIZABETH Hudson) Partial small bowel obstruction Schizoaffective disorder Chronic kidney disease, stage 3 Anemia Hyperlipidemia Orthostatic hypotension GERD (gastroesophageal reflux disease) Attention deficit hyperactivity disorder Neurogenic bladder Hematuria TBI (traumatic brain injury) Surgical History History of surgery Social History Household Members: Other Housing: Assisted Living Facility Do you presently have visiting nurse or other home services: Yes Alcohol intake: never Patient Tobacco Use Status: Former Tobacco user Tobacco use type: Cigarette and Cigar Advance Directives Date on File: 07/10/21 service: No Current occupational status: disabled Review of Systems Const Denies chills and Denies fever(s) Card Reports no additional complaints and Denies syncope Resp Denies cough GI Denies abdominal pain and Denies heartburn Reports as per HPI and Denies change in libido Neuro Denies syncope Psych Denies change in libido Endo Denies change in libido Physical Exam Const General: cooperative, healthy appearing, comfortable and no acute distress Orientation/consciousness: patient oriented x3 HEENT Face and sinus: Yes normal facial exam Mouth: moist mucous membranes Neck Neck: Yes normal visual inspection, Yes full ROM and Yes trachea midline Chest Chest palpation & inspection: normal inspection of the chest Resp Effort & Inspection: normal respiratory effort, able to speak in complete sentences and no respiratory distress GI Inspection: Yes normal to inspection Back/Spine/Pelvis Cervical Spine: normal cervical lordosis Thoracic/Lumbar Spine: thoracic and lumbar spine normal to inspection Skin General skin exam: no rashes or lesions noted Neuro General: patient oriented x3, gait normal, tone normal and moves all extremities Extrem General: Yes normal to inspection and Yes capillary refill normal Office Procedures Post Void Residual Post Residual Void Post Void Residual (PVR): 80 [id number] Void Residual by ultrasound Assessment & Plan Assessment & Plan (1) Urinary hesitancy: Code(s): R39.11 - Hesitancy of micturition (2) Nocturia more than twice per night: Code(s): R35.1 - Nocturia Plan Six-month follow-up PVR Orders: Orders AMB Post Void Residual by ultrasound Today N31.9 - Neuromuscular dysfunction of bladder, unspecified Patient Instructions: Imaging studies, laboratory and physical exam results were discussed and reviewed in detail. No major barriers to patient understanding were identified. An opportunity to ask questions regarding the treatment plan was provided. All questions were answered. The patient expressed understanding and agreement with the above treatment plan. The patient is aware they should contact our office by phone for worsening of their current condition or the appearance of new urologic symptoms. Compliance is encouraged with any medications and followup testing that is ordered. It is a privilege to participate in the urologic care of your patient. If you have any questions or concerns regarding treatment for the above conditions, or other urologic issues, please do not hesitate to contact me. The office telephone contact is [phone]. This note is constructed using voice recognition software. While every effort has been made to ensure accuracy litigation manager errors may have been included. Yours sincerely, Dr Jimenez Castillo MD, [facility] - Urology Providers of Expert, Compassionate Care for the Genitourinary System Coding Level of Care Code Est Pt Level 3 (86664) Diagnoses Urinary hesitancy R39.11 Nocturia more than twice per night R35.1 CPT Codes Post Residual Void - PVR CPT Code: 28890-Xlof Void Residual by ultrasound ([id number])
== END 2023-10-08 09:46 | disposition home or self-care (01) ==
PROVIDERS: PCP Hospitalist; Visit Provider Urology
DX: R39.11 Hesitancy of micturition (principal); R35.1 Nocturia
CPT/HCPCS: 99213

== ENCOUNTER → 2023-10-08 08:54 | Outpatient (BNVA) | payer MEDICARE, MEDICAID, SELFPAY | PROVIDERS: PCP Hospitalist; Visit Provider Urology | DX: R39.11 Hesitancy of micturition (principal); R35.1 Nocturia | CPT/HCPCS: 51798; 99212 ==

== ENCOUNTER 2024-05-23 09:09 | Outpatient (AMB) | payer MEDICARE, MEDICAID, SELFPAY ==
--- NOTE | 2024-05-23 09:13 | A.OFFVIS_ITS ---
Intake Visit Reasons: 6M Follow up-PVR Intake Note: Patient is Present for 6m Follow Up/PVR Urology Medication: Alfuzosin Antibiotic Allergies: None Blood Thinners: None PVR: 80 TODAY'S PVR:75ML'S Instrumentation And Control Technician Required: No Allergies NSAIDS (Non-Steroidal Anti-Inflamma [NSAIDS (NON-STEROIDAL ANTI-INFLAMMA] Allergy (Unknown, Verified 05/23/24 09:13) UNKNOWN HPI Comments Details: Lamin CARLOS is a very pleasant male. They are a patient of Dr Wood. They are seen in the office today for the following urologic conditions. - microscopic hematuria - neurogenic bladder - lower urinary tract symptoms Six-month follow-up PVR 75 cc prior PVR 80 cc Remains on alfuzosin Minimal accidents Feels he is unable to urine Creatinine 1.8 Schizoaffective disorder Longstanding anticholinergics side effect medications Lower urinary tract symptoms Primarily hesitancy and nocturia with terminal dribbling Current therapy alfuzosin Microscopic Hematuria:? Microscopic hematuria was diagnosed during?routine UA- evaulation for UTI ?- has a number of meds with anticholinergic side effects and may have difficulty initiating urination with incomplete emptying ?- no hematuria today.? Since the last visit the patient has?noticed gross hematuria ?- tests negative today.? Relevant medical history for?renal insufficiency, STDs, UTI's.? Radiographic imaging:?US renal 12/04 NAD.? Radiology report?no genitourinary abnormality.? Other investigations?01/04 cytology, , normal.? Cystoscopy findings?01/04 - meatal stenosis, small prostate, significant trabeculation and cellules, presumed neurogenic component.? Therapeutic plan?follow PRN - has anticholinergic side effects.? COUNT INCLUDES [facility] Medical History (Updated 10/05/22 @ 14:10 by ELIZABETH Adkins) Partial small bowel obstruction Schizoaffective disorder Chronic kidney disease, stage 3 Anemia Hyperlipidemia Orthostatic hypotension GERD (gastroesophageal reflux disease) Attention deficit hyperactivity disorder Neurogenic bladder Hematuria TBI (traumatic brain injury) Surgical History History of surgery Social History Household Members: Other Housing: Assisted Living Facility Do you presently have visiting nurse or other home services: Yes Alcohol intake: never Patient Tobacco Use Status: Former Tobacco user Tobacco use type: Cigarette and Cigar Advance Directives Date on File: 07/10/21 service: No Current occupational status: disabled Review of Systems Const Denies chills and Denies fever(s) Card Reports no additional complaints and Denies syncope Resp Denies cough GI Denies abdominal pain and Denies heartburn Reports as per HPI and Denies change in libido Neuro Denies syncope Psych Denies change in libido Endo Denies change in libido Physical Exam Const General: cooperative, healthy appearing, comfortable and no acute distress Orientation/consciousness: patient oriented x3 HEENT Face and sinus: Yes normal facial exam Mouth: moist mucous membranes Neck Neck: Yes normal visual inspection, Yes full ROM and Yes trachea midline Chest Chest palpation & inspection: normal inspection of the chest Resp Effort & Inspection: normal respiratory effort, able to speak in complete sentences and no respiratory distress GI Inspection: Yes normal to inspection Back/Spine/Pelvis Cervical Spine: normal cervical lordosis Thoracic/Lumbar Spine: thoracic and lumbar spine normal to inspection Skin General skin exam: no rashes or lesions noted Neuro General: patient oriented x3, gait normal, tone normal and moves all extremities Extrem General: Yes normal to inspection and Yes capillary refill normal Office Procedures Post Void Residual Post Residual Void Post Void Residual (PVR): 75 [id number]-Pckx Void Residual by ultrasound Assessment & Plan Assessment & Plan (1) Neurogenic bladder: Code(s): N31.9 - Neuromuscular dysfunction of bladder, unspecified Category: Medical (2) Urinary hesitancy: Code(s): R39.11 - Hesitancy of micturition Category: Medical Plan Six-month follow-up Patient Instructions: Imaging studies, laboratory and physical exam results were discussed and reviewed in detail. No major barriers to patient understanding were identified. An opportunity to ask questions regarding the treatment plan was provided. All questions were answered. The patient expressed understanding and agreement with the above treatment plan. The patient is aware they should contact our office by phone for worsening of their current condition or the appearance of new urologic symptoms. Compliance is encouraged with any medications and followup testing that is ordered. It is a privilege to participate in the urologic care of your patient. If you have any questions or concerns regarding treatment for the above conditions, or other urologic issues, please do not hesitate to contact me. The office telephone contact is [phone]. This note is constructed using voice recognition software. While every effort has been made to ensure accuracy filler leaf cutter long errors may have been included. Yours sincerely, Dr Jimenez Castillo MD, [facility] - Urology Providers of Expert, Compassionate Care for the Genitourinary System Coding Level of Care Code Est Pt Level 3 (42415) Diagnoses Neurogenic bladder N31.9 Urinary hesitancy R39.11 CPT Codes Post Residual Void - PVR CPT Code: 33872-Qdlu Void Residual by ultrasound ([id number])
== END 2024-05-23 09:38 | disposition home or self-care (01) ==
LOC: HO.HUSH 09:09
PROVIDERS: PCP Hospitalist; Visit Provider Urology
DX: N31.9 Neuromuscular dysfunction of bladder, unspecified (principal); R39.11 Hesitancy of micturition
CPT/HCPCS: 99213

== ENCOUNTER → 2024-05-23 09:09 | Outpatient (BNVA) | payer MEDICARE, MEDICAID, SELFPAY | PROVIDERS: PCP Hospitalist; Visit Provider Urology | DX: R31.29 Other microscopic hematuria (principal); N31.9 Neuromuscular dysfunction of bladder, unspecified; R39.11 Hesitancy of micturition; R35.1 Nocturia | CPT/HCPCS: 51798; 99212 ==

== ENCOUNTER 2024-11-21 09:57 | Outpatient (AMB) | payer MEDICARE, MEDICAID, SELFPAY ==
--- NOTE | 2024-11-21 10:23 | A.OFFVIS_ITS ---
Intake Visit Reasons: 6m/PVR(SET) Intake Note: Patient is Present for 6m Follow Up/PVR Urology Medication: Alfuzosin Antibiotic Allergies: None Blood Thinners: None TODAY'S PVR:16ml Document Processing Specialist Required: No Allergies NSAIDS (Non-Steroidal Anti-Inflamma [NSAIDS (NON-STEROIDAL ANTI-INFLAMMA] Allergy (Unknown, Verified 11/21/24 10:28) UNKNOWN HPI Comments Details: Lamin CARLOS is a very pleasant male. They are a patient of Dr Wood. They are seen in the office today for the following urologic conditions. - microscopic hematuria - neurogenic bladder - lower urinary tract symptoms Six-month follow-up PVR 75 cc prior PVR 80 cc Remains on alfuzosin Minimal accidents Feel some degree of incomplete emptying Creatinine 1.8 Schizoaffective disorder Longstanding anticholinergics side effect medications PSA no longer followed as less than 10 year life expectancy Lower urinary tract symptoms Primarily hesitancy and nocturia with terminal dribbling Current therapy alfuzosin Microscopic Hematuria:? Microscopic hematuria was diagnosed during?routine UA- evaulation for UTI ?- has a number of meds with anticholinergic side effects and may have difficulty initiating urination with incomplete emptying ?- no hematuria today.? Since the last visit the patient has?noticed gross hematuria ?- tests negative today.? Relevant medical history for?renal insufficiency, STDs, UTI's.? Radiographic imaging:?US renal 12/04 NAD.? Radiology report?no genitourinary abnormality.? Other investigations?01/04 cytology, , normal.? Cystoscopy findings?01/04 - meatal stenosis, small prostate, significant trabeculation and cellules, presumed neurogenic component.? Therapeutic plan?follow PRN - has anticholinergic side effects.? PFSH Medical History Partial small bowel obstruction Schizoaffective disorder Chronic kidney disease, stage 3 Anemia Hyperlipidemia Orthostatic hypotension GERD (gastroesophageal reflux disease) Attention deficit hyperactivity disorder Neurogenic bladder Hematuria TBI (traumatic brain injury) Surgical History History of surgery Social History Household Members: Other Housing: Assisted Living Facility Do you presently have visiting nurse or other home services: Yes Alcohol intake: never Patient Tobacco Use Status: Former Tobacco user Tobacco use type: Cigarette and Cigar Advance Directives Date on File: 07/10/21 service: No Current occupational status: disabled Review of Systems Const Denies chills and Denies fever(s) Card Reports no additional complaints and Denies syncope Resp Denies cough GI Denies abdominal pain and Denies heartburn Reports as per HPI and Denies change in libido Neuro Denies syncope Psych Denies change in libido Endo Denies change in libido Physical Exam Const General: cooperative, healthy appearing, comfortable and no acute distress Orientation/consciousness: patient oriented x3 HEENT Face and sinus: Yes normal facial exam Mouth: moist mucous membranes Neck Neck: Yes normal visual inspection, Yes full ROM and Yes trachea midline Chest Chest palpation & inspection: normal inspection of the chest Resp Effort & Inspection: normal respiratory effort, able to speak in complete sentences and no respiratory distress GI Inspection: Yes normal to inspection Back/Spine/Pelvis Cervical Spine: normal cervical lordosis Thoracic/Lumbar Spine: thoracic and lumbar spine normal to inspection Skin General skin exam: no rashes or lesions noted Neuro General: patient oriented x3, gait normal, tone normal and moves all extremities Extrem General: Yes normal to inspection and Yes capillary refill normal Results AMB Urinalysis, Automated UA Leukoctes 0 Adin/uL Last Edit by Earnestine Gavin on 11/21/24 10:40 UA Nitrite Negative Last Edit by Earnestine Gavin on 11/21/24 10:40 UA Urobilinogen 3.5 mg/dL Last Edit by Earnestine Gavin on 11/21/24 10:40 UA Protein 1.0 mg/dL Last Edit by Earnestine Gavin on 11/21/24 10:40 UA pH 6.5 Last Edit by Earnestine Gavin on 11/21/24 10:40 UA Blood 0 Jagdish/uL Last Edit by Earnestine Gavin on 11/21/24 10:40 UA Specific [place] 1.015 Last Edit by Earnestine Gavin on 11/21/24 10:40 UA Ketone Negative Last Edit by Earnestine Gavin on 11/21/24 10:40 UA Bilirubin 0 mg/dL Last Edit by Earnestine Gavin on 11/21/24 10:40 UA Glucose 0 mg/dL Last Edit by Earnestine Gavin on 11/21/24 10:40 Results Reviewed Results Reviewed: Laboratory Last Values Urine pH (Auto) 6.5 11/21/24 10:35 Specific [place] (Auto) 1.015 11/21/24 10:35 Urine Protein (Auto) 1.0 mg/dL 11/21/24 10:35 Glucose (UA)(Auto) 0 mg/dL 11/21/24 10:35 Urine Ketones (Auto) Negative 11/21/24 10:35 Urine Blood (Auto) 0 Jagdish/uL 11/21/24 10:35 Urine Nitrite (Auto) Negative 11/21/24 10:35 Urine Bilirubin (Auto) 0 mg/dL 11/21/24 10:35 Urine Urobilinogen (Auto) 3.5 mg/dL 11/21/24 10:35 Leukocyte Esterase (Auto) 0 Adin/uL 11/21/24 10:35 Assessment & Plan Assessment & Plan (1) Neurogenic bladder: Code(s): N31.9 - Neuromuscular dysfunction of bladder, unspecified Category: Medical (2) Nocturia more than twice per night: Code(s): R35.1 - Nocturia Category: Medical Plan Six-month follow-up PVR Orders: Orders AMB Urinalysis Automated Today Z13.9 - Encounter for screening, unspecified Patient Instructions: This note is constructed using voice recognition software. While every effort has been made to ensure accuracy locum tenens psychiatrist errors may have been included. Imaging studies, laboratory and physical exam results were discussed and reviewed in detail. No major barriers to patient understanding were identified. An opportunity to ask questions regarding the treatment plan was provided. All questions were answered. The patient expressed understanding and agreement with the above treatment plan. The patient is aware they should contact our office by phone for worsening of their current condition or the appearance of new urologic symptoms. Compliance is encouraged with any medications and followup testing that is ordered. It is a privilege to participate in the urologic care of your patient. If you have any questions or concerns regarding treatment for the above conditions, or other urologic issues, please do not hesitate to contact me. The office telephone contact is [phone]. Sincerely, Dr Jimenez Castillo MD, [facility] - Urology Compassionate Specialist Care for the Genitourinary System Coding Level of Care Code Est Pt Level 3 (53250) Diagnoses Neurogenic bladder N31.9 Nocturia more than twice per night R35.1
--- OUTSIDE RECORDS SUMMARY | 2024-11-21 11:51 | XMS_ITS | Clinical Summary ---
Author Organization [facility] Address [address] [facility] [address] [place] [address] Phone Care Team Providers Care Respiratory Therapy Technician Name Role Phone NinaForest Primary Care Provider [phone] Allergies Active Allergy Reactions Criticality Noted Date Comments Nsaids 07/12/2023 Medications Multiple Vitamins-Iron (Multivitamin Plus Iron Adult) tablet Take 1 tablet by mouth 1 (one) time each day Active omeprazole (PriLOSEC) [address] capsule Take 1 capsule by mouth in the morning and 1 capsule in the evening. Active acetaminophen (TYLENOL) 325 MG tablet Take 2 tablets by mouth 2 (two) times a day Active benztropine (COGENTIN) 0.5 MG tablet Take 1 tablet by mouth 2 (two) times a day Active calcitriol (ROCALTROL) 0.25 MCG capsule Take 1 capsule by mouth 2 (two) times a week Active Docusate Sodium (DSS) 100 MG capsule Take 1 capsule by mouth 1 (one) time each day Active escitalopram (LEXAPRO) 10 MG tablet Take 1 tablet by mouth 1 (one) time each day Active fenofibrate (TRICOR) 145 MG tablet Take 1 tablet by mouth 1 (one) time each day Active ferrous sulfate 325 (65 Fe) MG tablet Take 1 tablet by mouth 1 (one) time each day Active fludrocortisone 0.1 MG tablet Take 1 tablet by mouth 1 (one) time each day Active gabapentin (NEURONTIN) 300 MG capsule Take 1 capsule by mouth 3 (three) times a day Active gemfibrozil (LOPID) 600 MG tablet Take 1 tablet by mouth 2 (two) times a day Active loperamide (IMODIUM) 2 MG capsule Take 2 capsules by mouth in the morning and 2 capsules at noon and 2 capsules in the evening and 2 capsules before bedtime. Active midodrine (PROAMATINE) 10 MG tablet Take 1 tablet by mouth in the morning and 1 tablet in the evening and 1 tablet before bedtime. Active pramipexole (MIRAPEX) 1 MG tablet Take 1 tablet by mouth 1 (one) time each day Active propranolol (INDERAL) 10 MG tablet Take 1 tablet by mouth in the morning and 1 tablet in the evening. Active risperiDONE (RisperDAL) 0.25 MG tablet Take 1 tablet by mouth 2 (two) times a day Active Sennosides 8.6 MG capsule Take 1 capsule by mouth 1 (one) time each day Active simvastatin (ZOCOR) 10 MG tablet Take 1 tablet by mouth 1 (one) time each day Active ascorbic acid (VITAMIN C) 500 MG CR capsule Take 1 capsule by mouth 1 (one) time each day Active alfuzosin (UROXATRAL) 10 MG 24 hr tablet 2 Active clomiPRAMINE (ANAFRANIL) 50 MG capsule 2 Active ketorolac (ACULAR) 0.5 % ophthalmic solution 2 Active moxifloxacin (VIGAMOX) 0.5 % ophthalmic solution 2 Active prednisoLONE acetate (PRED FORTE) 1 % ophthalmic suspension 2 Active cloZAPine (CLOZARIL) 200 MG tablet 2 Active albuterol HFA (PROVENTIL HFA;VENTOLIN HFA) 108 (90 Base) MCG/ACT inhaler Inhale 2 puffs every 6 (six) hours if needed for wheezing Active hydrocortisone (CORTEF) 10 MG tablet 2 Active omeprazole (PriLOSEC) [address] capsule 2 Active polyethylene glycol-electrol ytes (NULYTELY) 420 g solution 2 Active amLODIPine (NORVASC) 5 MG tablet 3 Active clomiPRAMINE (ANAFRANIL) 25 MG capsule 3 Active clomiPRAMINE (ANAFRANIL) 75 MG capsule 3 Active cloZAPine (CLOZARIL) 100 MG tablet 3 Active Menthol, Topical Analgesic, (BENGAY PAIN RELIEF + MASSAGE EX) Apply topically Active Active Problems Problem Noted Date Diagnosed Date Obese class II 07/12/2023 07/12/2023 Orthostatic hypotension 02/24/2021 Acute nontraumatic kidney injury 02/21/2021 Chronic kidney disease stage 3 02/21/2021 Proteinuria 02/21/2021 Social History Tobacco Use Types Packs/Day Years Used Date Smoking Tobacco: Former Cigarettes Q uit: 09/20/2004 Smokeless Tobacco: Never Tobacco Cessation:Counseling Given: Not Answered Comments:Smoking History Info:Unknown Alcohol Use Standard Drinks/Week Comments No 0 (1 standard drink = 0.6 oz pur e alcohol) Sex and Gender Information Value Date Recorded Sex Assigned at Not on file Legal Sex Male 4:59 PM EST Gender Identity Not on file Sexual Orientation Not on file Last Filed Vital Signs Vital Sign Reading Time Taken Comments Blood Pressure 140/81 07/03/2024 2:34 PM EDT Pulse 105 07/03/2024 2:34 PM EDT Temperature - - Respiratory Rate - - Oxygen Saturation 97% 07/12/2023 2:31 PM EDT Inhaled Oxygen Concentration - - Weight 109 kg (240 lb) 07/03/2024 2:34 PM EDT Height 163.8 cm (5' 4.5 ) 07/12/2023 2:31 PM EDT Body Mass Index 40.56 07/12/2023 2:31 PM EDT Plan of Treatment Upcoming Encounters Date Type Department Care Team (Late st Contact Info) Description 01/01/2025 3:15 PM EDT Office Visit [facility] [address] [address] Terrance Downing MD [address] [phone] Health Maintenance Due Date Last Done Comments Pneumococcal Vaccine: 65+ Ye ars (1 of 2 - PCV) 1962 Colorectal Cancer Screening: Annual FOBT 2005 Colorectal Cancer Screening: Colonoscopy 2005 Colorectal Cancer Screening: Sigmoidoscopy 2005 Influenza Vaccine (#1) 2024 Hepatitis B Vaccine Aged Out No longe r eligible based on patient's age to complete this topic Insurance MEDICARE CAREONE [facility] MEDICARE CAREONE [facility] Care Teams Respiratory Therapy Technician Relationship Specialty Start Date End Date Forest Wood DO [address] [place], [place] PCP - General 09/30/20
--- OUTSIDE RECORDS SUMMARY | 2024-11-21 11:51 | XMS_ITS | Encounter Summary ---
Author Organization [facility] Address [address] [place] [address] Care Team Providers Care Catering Sous Chef Name Role Phone Forest Wood MD Primary Care Provider [phone] Encounter Details Date Type Department Care Team (Latest Contact Info) Description 09/08/2024 Lab Requisition [facility] - Main Lab [address] [facility] [place] [address] Forest Wood MD [address] [place] [address] [address] [place], [place] Schizoaffective disorder, unspecified (CMS/HCC) Social History Tobacco Use Types Packs/Day Years Used Date Smoking Tobacco: Never Assessed Sex and Gender Information Value Date Recorded Sex Assigned at Not on file Legal Sex Male 6:30 AM EST Gender Identity Not on file Sexual Orientation Not on file documented as of this encounter Plan of Treatment Not on file documented as of this encounter Procedures Procedure Name Priority Date/Time Associated Diagnosis Comments PROSTATE SPECIFIC ANTIGEN SCREEN Routine 09/08/2024 9:14 AM EST Schizoaffective disorder, unspecified (CMS/HCC) SST - GOLD Routine 09/08/2024 9:14 AM EST Schizoaffective disorder, unspecified (CMS/HCC) LIPID PANEL WITH REFLEX TO DIRECT LDL Routine 09/08/2024 9:14 AM EST Schizoaffective disorder, unspecified (CMS/HCC) CBC WITH AUTO DIFFERENTIAL Routine 09/08/2024 9:14 AM EST Schizoaffective disorder, unspecified (CMS/HCC) VITAMIN D 25 HYDROXY Routine 09/08/2024 9:14 AM EST Schizoaffective disorder, unspecified (CMS/HCC) CBC AND DIFFERENTIAL Routine 09/08/2024 9:14 AM EST Schizoaffective disorder, unspecified (CMS/HCC) THYROID STIMULATING HORMONE Routine 09/08/2024 9:14 AM EST Schizoaffective disorder, unspecified (CMS/HCC) PHOSPHORUS Routine 09/08/2024 9:14 AM EST Schizoaffective disorder, unspecified (CMS/HCC) PARATHYROID HORMONE INTACT Routine 09/08/2024 9:14 AM EST Schizoaffective disorder, unspecified (CMS/HCC) COMPREHENSIVE METABOLIC PANEL Routine 09/08/2024 9:14 AM EST Schizoaffective disorder, unspecified (CMS/HCC) documented in this encounter Results * SST tube (09/08/2024 9:14 AM EST) Extra Tube Hold for add-ons. 09/08/2024 12:01 PM EST [facility] Comment:Auto resulted. Blood Venous blood specimen / Unknown 09/08/2024 9:14 AM EST 09/08/2024 10:17 AM EST us Forest Wood MD LAB BLOOD ORDERABLES Final Resul t [facility] [address] [place] [address], [place] [phone] * (ABNORMAL) CBC auto differential (09/08/2024 9:14 AM EST) WBC 14.2(H) 4.8 - 10.8 K/mcL LAB HEMETOLOGY METHOD 09/08/2024 10:30 AM EST [facility] RBC 4.90 4.50 - 5.50 M/mcL LAB HEMETOLOGY METHOD 09/08/2024 10:30 AM EST [facility] Hemoglobin 13.2(L) 13.5 - 17.5 g/dL LAB HEMETOLOGY METHOD 09/08/2024 10:[address] [facility] Hematocrit 43.5 42.0 - 54.0 % LAB HEMETOLOGY METHOD 09/08/2024 10:[address] [facility] MCV 88.8 79.0 - 98.0 FL LAB HEMETOLOGY METHOD 09/08/2024 10:[address] [facility] MCH 26.9(L) 27.0 - 32.0 pcg LAB HEMETOLOGY METHOD 09/08/2024 10:[address] [facility] MCHC 30.3(L) 32.0 - 37.0 g/dL LAB HEMETOLOGY METHOD 09/08/2024 10:[address] [facility] RDW 13.0 11.0 - 15.0 % LAB HEMETOLOGY METHOD 09/08/2024 10:[address] [facility] Platelets 321 130 - 400 K/mcL LAB HEMETOLOGY METHOD 09/08/2024 10:[address] [facility] MPV 9.5 7.0 - 11.0 FL LAB HEMETOLOGY METHOD 09/08/2024 10:[address] [facility] NRBC 0.0 <1.0 % LAB HEMETOLOGY METHOD 09/08/2024 10:[address] [facility] NRBC Absolute 0.00 <0.10 K/mcL LAB HEMETOLOGY METHOD 09/08/2024 10:[address] [facility] Neutrophils Relative 72.2 % LAB HEMETOLOGY METHOD 09/08/2024 10:[address] [facility] Lymphocytes Relative 16.2 % LAB HEMETOLOGY METHOD 09/08/2024 10:[address] [facility] Monocytes Relative 7.6 % LAB HEMETOLOGY METHOD 09/08/2024 10:[address] [facility] Eosinophils Relative 2.7 % LAB HEMETOLOGY METHOD 09/08/2024 10:30 AM EST [facility] Basophils Relative 0.8 % LAB HEMETOLOGY METHOD 09/08/2024 10:[address] [facility] Immature Granulocytes Relative 0.5 % LAB HEMETOLOGY METHOD 09/08/2024 10:30 AM EST [facility] Neutrophils Absolute 10.28(H) 1.50 - 7.00 K/mcL LAB HEMETOLOGY METHOD 09/08/2024 10:30 AM EST [facility] Lymphocytes Absolute 2.30 1.00 - 5.00 K/mcL LAB HEMETOLOGY METHOD 09/08/2024 10:[address] [facility] Monocytes Absolute 1.08(H) 0.20 - 1.00 K/mcL LAB HEMETOLOGY METHOD 09/08/2024 10:30 AM EST [facility] Eosinophils Absolute 0.39 0.00 - 0.50 K/mcL LAB HEMETOLOGY METHOD 09/08/2024 10:30 AM EST [facility] Basophils Absolute 0.11 0.00 - 0.20 K/mcL LAB HEMETOLOGY METHOD 09/08/2024 10:[address] [facility] Immature Granulocytes Absolute 0.07(H) 0.00 - 0.03 K/mcL LAB HEMETOLOGY METHOD 09/08/2024 10:30 AM EST [facility] Blood Venous blood specimen / Unknown 09/08/2024 9:14 AM EST 09/08/2024 10:17 AM EST us Forest Wood MD LAB BLOOD ORDERABLES Final Resul t [facility] [address] [place] [address], * Vitamin D 25 hydroxy (09/08/2024 9:14 AM EST) Vit D, 25-Hydroxy 55.0 30.0 - 80.0 ng/mL LAB CHEMISTRY METHOD 09/08/2024 11:26 AM EST [facility] Blood Venous blood specimen / Unknown 09/08/2024 9:14 AM EST 09/08/2024 10:17 AM EST us Forest Wood MD LAB BLOOD ORDERABLES Final Resul t Performing Organization Address [facility] de Phone Number [facility] [address] [place] [address], * Prostate specific antigen screen (09/08/2024 9:14 AM EST) PSA 1.45 0.00 - 4.00 ng/mL LAB CHEMISTRY METHOD 09/08/2024 11:26 AM EST [facility] Blood Venous blood specimen / Unknown 09/08/2024 9:14 AM EST 09/08/2024 10:17 AM EST Narrative [facility] - 09/08/2024 11:26 AM EST The Siemens Advia Centaur Chemiluminescent Immunoassay is used. Results obtained with different assay methods or kits cannot be used interchangeably. Results cannot be interpreted as absolute evidence of the presence or absence of malignant disease. us Forest Wood MD LAB BLOOD ORDERABLES Final Resul t Performing Organization Address [facility] de Phone Number [facility] [address] [place] [address], [place] [phone] * Phosphorus (09/08/2024 9:14 AM EST) Phosphorus 2.7 2.5 - 4.5 mg/dL LAB CHEMISTRY METHOD 09/08/2024 1:56 PM EST [facility] Blood Venous blood specimen / Unknown 09/08/2024 9:14 AM EST 09/08/2024 10:17 AM EST us Forest Wood MD LAB BLOOD ORDERABLES Final Resul t Performing Organization Address [facility] Co de Phone Number [facility] [address] [place] [address], [place] [phone] * (ABNORMAL) Parathyroid hormone intact (09/08/2024 9:14 AM EST) PTH 104.7(H) 18.5 - 88.0 pcg/mL LAB CHEMISTRY METHOD 09/08/2024 11:27 AM EST [facility] Blood Venous blood specimen / Unknown 09/08/2024 9:14 AM EST 09/08/2024 10:17 AM EST us Forest Wood MD LAB BLOOD ORDERABLES Final Resul t Performing Organization Address [facility] de Phone Number [facility] [address] [place] [address], [place] [phone] * Thyroid stimulating hormone (09/08/2024 9:14 AM EST) TSH 2.07 0.40 - 4.00 mcIU/mL LAB CHEMISTRY METHOD 09/08/2024 11:27 AM EST [facility] Blood Venous blood specimen / Unknown 09/08/2024 9:14 AM EST 09/08/2024 10:17 AM EST us Forest Wood MD LAB BLOOD ORDERABLES Final Resul t Performing Organization Address [facility] Co de Phone Number [facility] [address] [place] [address], [place] [phone] * (ABNORMAL) Lipid panel with reflex to direct LDL (09/08/2024 9:14 AM EST) Cholesterol 150 0 - 200 mg/dL LAB CHEMISTRY METHOD 09/08/2024 1:55 PM EST [facility] Triglycerides 257(H) 0 - 150 mg/dL LAB CHEMISTRY METHOD 09/08/2024 1:[address] [facility] HDL 41 >=40 mg/dL LAB CHEMISTRY METHOD 09/08/2024 1:[address] [facility] LDL Calculated 58 0 - 100 mg/dL LAB CHEMISTRY METHOD 09/08/2024 1:[address] [facility] VLDL Cholesterol Yonathan 51.4 mg/dL LAB CHEMISTRY METHOD 09/08/2024 1:[address] [facility] Non HDL Chol. (LDL+VLDL) 109 <145 mg/dL LAB CHEMISTRY METHOD 09/08/2024 1:[address] [facility] Chol/HDL Ratio 3.7 0.0 - 4.4 LAB CHEMISTRY METHOD 09/08/2024 1:[address] [facility] Blood Venous blood specimen / Unknown 09/08/2024 9:14 AM EST 09/08/2024 10:17 AM EST us Forest Wood MD LAB BLOOD ORDERABLES Final Resul t [facility] [address] [place] [address], * (ABNORMAL) Comprehensive metabolic panel (09/08/2024 9:14 AM EST) Sodium 141 133 - 145 mmol/L LAB CHEMISTRY METHOD 09/08/2024 1:[address] [facility] Potassium 4.1 3.5 - 5.5 mmol/L LAB CHEMISTRY METHOD 09/08/2024 1:[address] [facility] Chloride 109 96 - 110 mmol/L LAB CHEMISTRY METHOD 09/08/2024 1:[address] [facility] CO2 25 21 - 32 mmol/L LAB CHEMISTRY METHOD 09/08/2024 1:[address] [facility] Anion Gap 7 3 - 11 LAB CHEMISTRY METHOD 09/08/2024 1:[address] [facility] Glucose 107(H) 70 - 100 mg/dL LAB CHEMISTRY METHOD 09/08/2024 1:[address] [facility] BUN 39(H) 5 - 25 mg/dL LAB CHEMISTRY METHOD 09/08/2024 1:[address] [facility] Creatinine 2.65(H) 0.70 - 1.30 mg/dL LAB CHEMISTRY METHOD 09/08/2024 1:[address] [facility] eGFR 26(L) >=60 mL/min/1. 73m2 LAB CHEMISTRY METHOD 09/08/2024 1:[address] [facility] Comment:Calculation based on the??Chronic Kidney Disease Epidemiology Collaboration (CKD-EPI) equation refit??without adjustment for race. BUN/Creatinine Ratio 14.7 LAB CHEMISTRY METHOD 09/08/2024 1:[address] [facility] Calcium 10.0 8.5 - 10.5 mg/dL LAB CHEMISTRY METHOD 09/08/2024 1:[address] [facility] AST (SGOT) 41 10 - 42 unit/L LAB CHEMISTRY METHOD 09/08/2024 1:[address] [facility] ALT (SGPT) 45 10 - 60 unit/L LAB CHEMISTRY METHOD 09/08/2024 1:[address] [facility] Alkaline Phosphatase 81 42 - 121 unit/L LAB CHEMISTRY METHOD 09/08/2024 1:[address] [facility] Total Protein 7.8 6.0 - 8.0 g/dL LAB CHEMISTRY METHOD 09/08/2024 1:[address] [facility] Albumin 3.7 3.2 - 5.0 g/dL LAB CHEMISTRY METHOD 09/08/2024 1:[address] [facility] Total Bilirubin 0.5 0.0 - 1.4 mg/dL LAB CHEMISTRY METHOD 09/08/2024 1:[address] [facility] Blood Venous blood specimen / Unknown 09/08/2024 9:14 AM EST 09/08/2024 10:17 AM EST us Forest Wood MD LAB BLOOD ORDERABLES Final Resul t [facility] [address] [place] [address], documented in this encounter Visit Diagnoses Diagnosis Schizoaffective disorder, unspecified (CMS/HCC) documented in this encounter Care Teams Catering Sous Chef Relationship Specialty Start Date End Date Forest Wood MD [address] [place] PCP - General Internal Medicine 11/07/24 documented as of this encounter
--- OUTSIDE RECORDS SUMMARY | 2024-11-21 11:51 | XMS_ITS | Encounter Summary ---
Author Organization [facility] Address [address] [place] [address] Care Team Providers Care Patient Financial Coordinator Name Role Phone Forest Wood MD Primary Care Provider [phone] Encounter Details Date Type Department Care Team (Late st Contact Info) Description 10/06/2024 Lab Requisition [facility] Lab [address] [facility] [place] [address] Forest Wood MD [address] [place] [address] [address] [place], [place] Encounter for screening for malignant neoplasm of prostate; Hypotension, unspecified; Chronic kidney disease, unspecified; Schizoaffective disorder, unspecified (CMS/HCC) Social History Tobacco [...] Date/Time Associated Diagnosis Comments PROSTATE SPECIFIC ANTIGEN DIAGNOSTIC Routine 10/06/2024 6:31 AM EST Encounter for screening for malignant neoplasm of prostate Hypotension, unspecified Chronic kidney disease, unspecified Schizoaffective disorder, unspecified (CMS/HCC) CBC WITH AUTO DIFFERENTIAL Routine 10/06/2024 6:31 AM EST Encounter for screening for malignant neoplasm of prostate Hypotension, unspecified Chronic kidney disease, unspecified Schizoaffective disorder, unspecified (CMS/HCC) CBC AND DIFFERENTIAL Routine 10/06/2024 6:31 AM EST Encounter for screening for malignant neoplasm of prostate Hypotension, unspecified Chronic kidney disease, unspecified Schizoaffective disorder, unspecified (CMS/HCC) PHOSPHORUS Routine 10/06/2024 6:31 AM EST Encounter for screening for malignant neoplasm of prostate Hypotension, unspecified Chronic kidney disease, unspecified Schizoaffective disorder, unspecified (CMS/HCC) COMPREHENSIVE METABOLIC PANEL Routine 10/06/2024 6:31 AM EST Encounter for screening for malignant neoplasm of prostate Hypotension, unspecified Chronic kidney disease, unspecified Schizoaffective disorder, unspecified (CMS/HCC) documented in this encounter Results * (ABNORMAL) CBC auto differential (10/06/2024 6:31 AM EST) [facility] WBC 12.7(H) 4.8 - 10.8 K/mcL LAB HEMETOLOGY METHOD 10/06/2024 7:23 AM [facility] RBC 4.40(L) 4.50 - 5.50 M/mcL LAB HEMETOLOGY METHOD 10/06/2024 7:23 AM [facility] Hemoglobin 11.9(L) 13.5 - 17.5 g/dL LAB HEMETOLOGY METHOD 10/06/2024 7:23 AM [facility] Hematocrit 39.2(L) 42.0 - 54.0 % LAB HEMETOLOGY METHOD 10/06/2024 7:23 AM [facility] MCV 89.1 79.0 - 98.0 FL LAB HEMETOLOGY METHOD 10/06/2024 7:23 AM [facility] MCH 27.0 27.0 - 32.0 pcg LAB HEMETOLOGY METHOD 10/06/2024 7:23 AM [facility] MCHC 30.4(L) 32.0 - 37.0 g/dL LAB HEMETOLOGY METHOD 10/06/2024 7:23 AM [facility] RDW 13.2 11.0 - 15.0 % LAB HEMETOLOGY METHOD 10/06/2024 7:23 AM [facility] Platelets 239 130 - 400 K/mcL LAB HEMETOLOGY METHOD 10/06/2024 7:23 AM [facility] MPV 9.8 7.0 - 11.0 FL LAB HEMETOLOGY METHOD 10/06/2024 7:23 AM [facility] NRBC 0.0 <1.0 % LAB HEMETOLOGY METHOD 10/06/2024 7:23 AM [facility] NRBC Absolute 0.00 <0.10 K/mcL LAB HEMETOLOGY METHOD 10/06/2024 7:23 AM [facility] Neutrophils Relative 63.5 % LAB HEMETOLOGY METHOD 10/06/2024 7:23 AM [facility] Lymphocytes Relative 23.0 % LAB HEMETOLOGY METHOD 10/06/2024 7:23 AM [facility] Monocytes Relative 7.3 % LAB HEMETOLOGY METHOD 10/06/2024 7:23 AM [facility] Eosinophils Relative 4.7 % LAB HEMETOLOGY METHOD 10/06/2024 7:23 AM [facility] Basophils Relative 0.7 % LAB HEMETOLOGY METHOD 10/06/2024 7:23 AM [facility] Immature Granulocytes Relative 0.8 % LAB HEMETOLOGY METHOD 10/06/2024 7:23 AM [facility] Neutrophils Absolute 8.05(H) 1.50 - 7.00 K/mcL LAB HEMETOLOGY METHOD 10/06/2024 7:23 AM [facility] Lymphocytes Absolute 2.91 1.00 - 5.00 K/mcL LAB HEMETOLOGY METHOD 10/06/2024 7:23 AM [facility] Monocytes Absolute 0.93 0.20 - 1.00 K/mcL LAB HEMETOLOGY METHOD 10/06/2024 7:23 AM [facility] Eosinophils Absolute 0.59(H) 0.00 - 0.50 K/mcL LAB HEMETOLOGY METHOD 10/06/2024 7:23 AM EST [facility] Basophils Absolute 0.09 0.00 - 0.20 K/mcL LAB HEMETOLOGY METHOD 10/06/2024 7:23 AM EST [facility] Immature Granulocytes Absolute 0.10(H) 0.00 - 0.03 K/mcL LAB HEMETOLOGY METHOD 10/06/2024 7:23 AM EST [facility] Blood Venous blood specimen / Unknown 10/06/2024 6:31 AM EST 10/06/2024 7:17 AM EST us Forest Wood MD LAB BLOOD ORDERABLES Final Resul t Performing Organization Address [facility] Co de Phone Number [facility] [address] [place] [address], [place] [phone] * Prostate specific antigen diagnostic (10/06/2024 6:31 AM EST) PSA 0.25 0.00 - 4.00 ng/mL LAB CHEMISTRY METHOD 10/06/2024 9:46 AM EST [facility] Blood Venous blood specimen / Unknown 10/06/2024 6:31 AM EST 10/06/2024 7:17 AM EST Narrative [facility] - 10/06/2024 9:46 AM EST The Siemens Advia Centaur Chemiluminescent Immunoassay is used. Results obtained with different assay methods or kits cannot be used interchangeably. Results cannot be interpreted as absolute evidence of the presence or absence of malignant disease. us Forest Wood MD LAB BLOOD ORDERABLES Final Resul t Performing Organization Address City/[facility]/ZIP Co de Phone Number [facility] [address] [place] [address], [place] [phone] * Phosphorus (10/06/2024 6:31 AM EST) Phosphorus 3.8 2.5 - 4.5 mg/dL LAB CHEMISTRY METHOD 10/06/2024 8:08 AM [facility] Blood Venous blood specimen / Unknown 10/06/2024 6:31 AM EST 10/06/2024 7:17 AM EST us Forest Wood MD LAB BLOOD ORDERABLES Final Resul t [facility] [address] [place] [address], * (ABNORMAL) Comprehensive metabolic panel (10/06/2024 6:31 AM EST) Sodium 141 133 - 145 mmol/L LAB CHEMISTRY METHOD 10/06/2024 9:46 AM [facility] Potassium 5.0 3.5 - 5.5 mmol/L LAB CHEMISTRY METHOD 10/06/2024 9:46 AM [facility] Chloride 110 96 - 110 mmol/L LAB CHEMISTRY METHOD 10/06/2024 9:46 AM [facility] CO2 27 21 - 32 mmol/L LAB CHEMISTRY METHOD 10/06/2024 9:46 AM [facility] Anion Gap 4 3 - 11 LAB CHEMISTRY METHOD 10/06/2024 9:46 AM [facility] Glucose 90 70 - 100 mg/dL LAB CHEMISTRY METHOD 10/06/2024 9:46 AM [facility] BUN 62(H) 5 - 25 mg/dL LAB CHEMISTRY METHOD 10/06/2024 9:46 AM [facility] Comment:Results verified by repeat testing Creatinine 2.88(H) 0.70 - 1.30 mg/dL LAB CHEMISTRY METHOD 10/06/2024 9:46 AM [facility] eGFR 23(L) >=60 mL/min/1. 73m2 LAB CHEMISTRY METHOD 10/06/2024 9:46 AM [facility] Comment:Calculation based on the??Chronic Kidney Disease Epidemiology Collaboration (CKD-EPI) equation refit??without adjustment for race. BUN/Creatinine Ratio 21.5 LAB CHEMISTRY METHOD 10/06/2024 9:46 AM [facility] Calcium 9.4 8.5 - 10.5 mg/dL LAB CHEMISTRY METHOD 10/06/2024 9:46 AM [facility] AST (SGOT) 30 10 - 42 unit/L LAB CHEMISTRY METHOD 10/06/2024 9:46 AM [facility] ALT (SGPT) 41 10 - 60 unit/L LAB CHEMISTRY METHOD 10/06/2024 9:46 AM [facility] Alkaline Phosphatase 74 42 - 121 unit/L LAB CHEMISTRY METHOD 10/06/2024 9:46 AM [facility] Total Protein 7.1 6.0 - 8.0 g/dL LAB CHEMISTRY METHOD 10/06/2024 9:46 AM [facility] Albumin 3.3 3.2 - 5.0 g/dL LAB CHEMISTRY METHOD 10/06/2024 9:46 AM [facility] Total Bilirubin 0.3 0.0 - 1.4 mg/dL LAB CHEMISTRY METHOD 10/06/2024 9:46 AM [facility] Blood Venous blood specimen / Unknown 10/06/2024 6:31 AM EST 10/06/2024 7:17 AM EST Forest Wood MD LAB BLOOD ORDERABLES Final Resul t [facility] [address] [place] [address], documented in this encounter Visit Diagnoses Diagnosis Encounter for screening for malignant neoplasm of prostate Hypotension, unspecified Chronic kidney disease, unspecified Schizoaffective disorder, unspecified (CMS/HCC) documented in this encounter Care Teams Patient Financial Coordinator Relationship Specialty Start Date End Date Forest Wood MD [address] [place] [address] Dr Kojo Banks [place] PCP - General Internal Medicine 11/07/24 documented as of this encounter
--- OUTSIDE RECORDS SUMMARY | 2024-11-21 11:51 | XMS_ITS | Encounter Summary ---
Author Organization [facility] Address [address] [place] [address] Phone Care Team Providers Care Smoke Room Operator Name Role Phone Forest Wood DO Primary Care Provider [phone] Encounter Details Date Type Department Care Team (Late Contact Info) Description 02/26/2021 Orders Only [facility] [address] [place] [address] Provider, MD Christian [address] [place] [address] Social History Tobacco Use Types Packs/Day Years Used Date Smoking Tobacco: Former Cigarettes Q uit: 09/20/2004 Smokeless Tobacco: Never Comments:Smoking History Inf o:Unknown Alcohol Use Standard Drinks/Week Comments No 0 (1 standard drink = 0.6 oz pur e alcohol) Sex and Gender Information Value Date Recorded Sex Assigned at Not on file Legal Sex Male 4:59 PM EST Gender Identity Not on file Sexual Orientation Not on file COVID-19 Exposure Response Date Recorded In the last month, have you been in contact with someone who was confirmed or suspected to have Coronavirus / COVID-19? No / Unsure 02/24/2021 12:46 PM EDT documented as of this encounter Plan of Treatment Upcoming Encounters Date Type Department Care Team (Late st Contact Info) Description 01/01/2025 3:15 PM EDT Office Visit [facility] [address] [facility] [address] [place] [address] Terrance Downing MD [address] [facility] [address] [place] [address] documented as of this encounter Procedures Procedure Name Priority Date/Time Associated Diagnosis Comments EXT RESULT ENTRY Routine 02/26/2021 documented in this encounter Results * EXT RESULT ENTRY (02/26/2021) us Historical Provider LAB BLOOD ORDERABLES Natalia l Result documented in this encounter Visit Diagnoses Not on filedocumented in this encounter Care Teams Smoke Room Operator Relationship Specialty Start Date End Date Forest Wood DO [address] [place] [address] [address] [place], [place] PCP - General 09/30/20 documented as of this encounter
--- OUTSIDE RECORDS SUMMARY | 2024-11-21 11:51 | XMS_ITS | Clinical Summary ---
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 11/07/2024 Lab Requisition [facility] Lab [address] [place] [phone] Forest Wood MD Schizoaffective disorder, unspecified (CMS/HCC) 10/06/2024 Lab Requisition [facility] Lab [address] [place] [phone] Froest Wood MD Encounter for screening for malignant neoplasm of prostate; Hypotension, unspecified; Chronic kidney disease, unspecified; Schizoaffective disorder, unspecified (CMS/HCC) 09/08/2024 Lab Requisition [facility] Lab [address] [place] [phone] Forest Wood MD Schizoaffective disorder, unspecified (CMS/HCC) 09/07/2024 Lab Requisition [facility] Lab [address] [place] [phone] Forest Wood MD Schizoaffective disorder, unspecified (CMS/HCC) from Last 3 Months Social History Tobacco Use Types Packs/Day Years Used Date Smoking Tobacco: Never Assessed Sex and Gender Information Value Date Recorded Sex Assigned at Not on file Legal Sex Male 6:30 AM EST Gender Identity Not on file Sexual Orientation Not on file Plan of Treatment Health Maintenance Due Date Last Done Comments DTaP,Tdap,and Td Vaccines (1 - Tdap) 1975 Pneumococcal Vaccine: 50+ Years (1 of 1 - PCV) 2006 Zoster Vaccines (1 of 2) 2006 RSV Immunization Patients 60 + Years Old (1 - Risk 60-74 years 1-dose series) 2016 Abdominal Aortic Aneurysm (AAA) Screen 08/23/2022 Depression Screening 08/23/2022 Falls Risk Assessment 08/23/2022 Hepatitis C Screening 08/23/2022 Medicare Annual Wellness Visit 08/23/2022 Social Influencers of Health Screening 08/23/2022 COVID-19 Vaccine (1 - 2023-2 5 season) 2024 Influenza Vaccine (#1) 2024 Colorectal Cancer Screening: FIT-DNA (Cologuard) 01/05/2027 01/06/2024, 01/06/2024 Cholesterol Screening (Lipid Panel) 09/08/2029 09/08/2024, 07/26/2024 HIB Vaccines Aged Out No longer eligi ble based on patient's age to complete this topic HPV Vaccines Aged Out No longer eligi ble based on patient's age to complete this topic Hepatitis A Vaccines Aged Out No long er eligible based on patient's age to complete this topic Hepatitis B Vaccines Aged Out No long er eligible based on patient's age to complete this topic IPV Vaccines Aged Out No longer eligi ble based on patient's age to complete this topic MMR Vaccines Aged Out No longer eligi ble based on patient's age to complete this topic Meningococcal ACWY Vaccine Aged Out N o longer eligible based on patient's age to complete this topic Meningococcal B Vacine Aged Out No lo nger eligible based on patient's age to complete this topic RSV Immunization Patients Under 20 months Aged Out No longer eligible b ased on patient's age to complete this topic Varicella Vaccines Aged Out No longer eligible based on patient's age to complete this topic Procedures Procedure Name Priority Date/Time Associated Diagnosis Comments CBC WITH AUTO DIFFERENTIAL Routine 11/08/2024 6:31 AM EST Other shelter (current) drug therapy CBC AND DIFFERENTIAL Routine 11/08/2024 6:31 AM EST Other shelter (current) drug therapy COMPREHENSIVE METABOLIC PANEL Routine 11/07/2024 6:31 AM EST Schizoaffective disorder, unspecified (CMS/HCC) CBC WITH AUTO DIFFERENTIAL Routine 10/06/2024 6:31 AM EST Encounter for screening for malignant neoplasm of prostate Hypotension, unspecified Chronic kidney disease, unspecified Schizoaffective disorder, unspecified (CMS/HCC) PROSTATE SPECIFIC ANTIGEN DIAGNOSTIC Routine 10/06/2024 6:31 [...] kidney disease, unspecified Schizoaffective disorder, unspecified (CMS/HCC) SST - GOLD Routine 09/08/2024 9:14 AM EST Schizoaffective disorder, unspecified (CMS/HCC) CBC WITH AUTO DIFFERENTIAL Routine 09/08/2024 9:14 AM EST Schizoaffective disorder, unspecified (CMS/HCC) VITAMIN D 25 HYDROXY Routine 09/08/2024 9:14 AM EST Schizoaffective disorder, unspecified (CMS/HCC) PROSTATE SPECIFIC ANTIGEN SCREEN Routine 09/08/2024 9:14 [...] unspecified (CMS/HCC) CBC WITH AUTO DIFFERENTIAL Routine 09/07/2024 1:21 PM EST Schizoaffective disorder, unspecified (CMS/HCC) CBC AND DIFFERENTIAL Routine 09/07/2024 1:21 PM EST Schizoaffective disorder, unspecified (CMS/HCC) from Last 3 Months Results * (ABNORMAL) CBC auto differential (11/08/2024 6:31 AM EST) Only the most recent of4 resultswithin the time period is included. WBC 11.2(H) 4.8 - 10.8 K/[facility] LAB HEMETOLOGY METHOD 11/08/2024 7:43 AM EST [facility] RBC 4.20(L) 4.50 - 5.50 M/[facility] LAB HEMETOLOGY METHOD 11/08/2024 7:43 AM EST [facility] Hemoglobin 11.5(L) 13.5 - 17.5 g/dL LAB HEMETOLOGY METHOD 11/08/2024 7:43 AM [facility] Hematocrit 37.7(L) 42.0 - 54.0 % LAB HEMETOLOGY METHOD 11/08/2024 7:43 AM [facility] MCV 89.1 79.0 - 98.0 FL LAB HEMETOLOGY METHOD 11/08/2024 7:43 AM [facility] MCH 27.2 27.0 - 32.0 pcg LAB HEMETOLOGY METHOD 11/08/2024 7:43 AM [facility] MCHC 30.5(L) 32.0 - 37.0 g/dL LAB HEMETOLOGY METHOD 11/08/2024 7:43 AM [facility] RDW 13.3 11.0 - 15.0 % LAB HEMETOLOGY METHOD 11/08/2024 7:43 AM [facility] Platelets 238 130 - 400 K/mcL LAB HEMETOLOGY METHOD 11/08/2024 7:43 AM [facility] MPV 9.9 7.0 - 11.0 FL LAB HEMETOLOGY METHOD 11/08/2024 7:43 AM [facility] NRBC 0.0 <1.0 % LAB HEMETOLOGY METHOD 11/08/2024 7:43 AM [facility] NRBC Absolute 0.00 <0.10 K/mcL LAB HEMETOLOGY METHOD 11/08/2024 7:43 AM [facility] Neutrophils Relative 66.3 % LAB HEMETOLOGY METHOD 11/08/2024 7:43 AM [facility] Lymphocytes Relative 18.2 % LAB HEMETOLOGY METHOD 11/08/2024 7:43 AM [facility] Monocytes Relative 8.5 % LAB HEMETOLOGY METHOD 11/08/2024 7:43 AM [facility] Eosinophils Relative 5.7 % LAB HEMETOLOGY METHOD 11/08/2024 7:43 AM EST [facility] Basophils Relative 0.8 % LAB HEMETOLOGY METHOD 11/08/2024 7:43 AM EST [facility] Immature Granulocytes Relative 0.5 % LAB HEMETOLOGY METHOD 11/08/2024 7:43 AM [facility] Neutrophils Absolute 7.39(H) 1.50 - 7.00 K/mcL LAB HEMETOLOGY METHOD 11/08/2024 7:43 AM EST [facility] Lymphocytes Absolute 2.03 1.00 - 5.00 K/mcL LAB HEMETOLOGY METHOD 11/08/2024 7:43 AM EST [facility] Monocytes Absolute 0.95 0.20 - 1.00 K/mcL LAB HEMETOLOGY METHOD 11/08/2024 7:43 AM [facility] Eosinophils Absolute 0.64(H) 0.00 - 0.50 K/mcL LAB HEMETOLOGY METHOD 11/08/2024 7:43 AM EST [facility] Basophils Absolute 0.09 0.00 - 0.20 K/mcL LAB HEMETOLOGY METHOD 11/08/2024 7:43 AM [facility] Immature Granulocytes Absolute 0.06(H) 0.00 - 0.03 K/mcL LAB HEMETOLOGY METHOD 11/08/2024 7:43 AM [facility] Blood Venous blood specimen / Unknown 11/08/2024 6:31 AM EST 11/08/2024 7:18 AM EST us Forest Wood MD LAB BLOOD ORDERABLES Final Resul t [facility] [address] [place] [address], * (ABNORMAL) Comprehensive metabolic panel (11/07/2024 6:31 AM EST) Only the most recent of3 resultswithin the time period is included. [facility] Sodium 138 133 - 145 mmol/L LAB CHEMISTRY METHOD 11/07/2024 7:35 AM [facility] Potassium 5.1 3.5 - 5.5 mmol/L LAB CHEMISTRY METHOD 11/07/2024 7:35 AM [facility] Chloride 107 96 - 110 mmol/L LAB CHEMISTRY METHOD 11/07/2024 7:35 AM [facility] CO2 28 21 - 32 mmol/L LAB CHEMISTRY METHOD 11/07/2024 7:35 AM [facility] Anion Gap 3 3 - 11 LAB CHEMISTRY METHOD 11/07/2024 7:35 AM [facility] Glucose 107(H) 70 - 100 mg/dL LAB CHEMISTRY METHOD 11/07/2024 7:35 AM [facility] BUN 44(H) 5 - 25 mg/dL LAB CHEMISTRY METHOD 11/07/2024 7:35 AM [facility] Creatinine 3.33(H) 0.70 - 1.30 mg/dL LAB CHEMISTRY METHOD 11/07/2024 7:35 AM [facility] eGFR 19(L) >=60 mL/min/1. 73m2 LAB CHEMISTRY METHOD 11/07/2024 7:35 AM [facility] Comment:Calculation based on the??Chronic Kidney Disease Epidemiology Collaboration (CKD-EPI) equation refit??without adjustment for race. BUN/Creatinine Ratio 13.2 LAB CHEMISTRY METHOD 11/07/2024 7:35 AM [facility] Calcium 9.7 8.5 - 10.5 mg/dL LAB CHEMISTRY METHOD 11/07/2024 7:35 AM [facility] AST (SGOT) 26 10 - 42 unit/L LAB CHEMISTRY METHOD 11/07/2024 7:35 AM [facility] ALT (SGPT) 39 10 - 60 unit/L LAB CHEMISTRY METHOD 11/07/2024 7:35 AM [facility] Alkaline Phosphatase 77 42 - 121 unit/L LAB CHEMISTRY METHOD 11/07/2024 7:35 AM EST [facility] Total Protein 6.9 6.0 - 8.0 g/dL LAB CHEMISTRY METHOD 11/07/2024 7:35 AM EST [facility] Albumin 3.1(L) 3.2 - 5.0 g/dL LAB CHEMISTRY METHOD 11/07/2024 7:35 AM EST [facility] Total Bilirubin 0.3 0.0 - 1.4 mg/dL LAB CHEMISTRY METHOD 11/07/2024 7:35 AM EST [facility] Blood Venous blood specimen / Unknown 11/07/2024 6:31 AM EST 11/07/2024 7:03 AM EST us Forest Wood MD LAB BLOOD ORDERABLES Final Resul t Performing Organization Address [facility] Co de Phone Number [facility] [address] [place] [address], [place] [phone] * Prostate specific antigen diagnostic (10/06/2024 6:31 AM EST) PSA 0.25 0.00 - 4.00 ng/mL LAB CHEMISTRY METHOD 10/06/2024 9:46 AM EST [facility] Blood Venous blood specimen / Unknown 10/06/2024 6:31 AM EST 10/06/2024 7:17 AM EST Narrative [facility] - 10/06/2024 9:46 AM EST The Siemens Advia Centaur Chemiluminescent Immunoassay is used. Results obtained with different assay methods or kits cannot be used interchangeably. Results cannot be interpreted as absolute evidence of the presence or absence of malignant disease. us Forest Wood MD LAB BLOOD ORDERABLES Final Resul t Performing Organization Address City/[facility]/ZIP Co de Phone Number [facility] [address] [place] [address], [place] [phone] * Phosphorus (10/06/2024 6:31 AM EST) Only the most recent of2 resultswithin the time period is included. Phosphorus 3.8 2.5 - 4.5 mg/dL LAB CHEMISTRY METHOD 10/06/2024 8:08 AM EST [facility] Blood Venous blood specimen / Unknown 10/06/2024 6:31 AM EST 10/06/2024 7:17 AM EST us Forest Wood MD LAB BLOOD ORDERABLES Final Resul t Performing Organization Address [facility]/ZIP Co de Phone Number [facility] [address] [place] [address], [place] [phone] * Prostate specific antigen screen (09/08/2024 9:14 AM EST) [facility] PSA 1.45 0.00 - 4.00 ng/mL LAB CHEMISTRY METHOD 09/08/2024 11:26 AM EST [facility] Blood Venous blood specimen / Unknown 09/08/2024 9:14 AM EST 09/08/2024 10:17 AM EST Narrative [facility] - 09/08/2024 11:26 AM EST The Siemens Advia Centaur Chemiluminescent Immunoassay is used. Results obtained with different assay methods or kits cannot be used interchangeably. Results cannot be interpreted as absolute evidence of the presence or absence of malignant disease. us Forest Wood MD LAB BLOOD ORDERABLES Final Resul t Performing Organization Address [facility]/ZIP Co de Phone Number [facility] [address] [place] [address], [place] [phone] * SST tube (09/08/2024 9:14 AM EST) [facility] Extra Tube Hold for add-ons. 09/08/2024 12:01 PM EST [facility] Comment:Auto resulted. Blood Venous blood specimen / Unknown 09/08/2024 9:14 AM EST 09/08/2024 10:17 AM EST us Forest Wood MD LAB BLOOD ORDERABLES Final Resul t Performing Organization Address City/[facility]/ZIP Co de Phone Number [facility] [address] [place] [address], [place] [phone] * (ABNORMAL) Lipid panel with reflex to direct LDL (09/08/2024 9:14 AM EST) Cholesterol 150 0 - 200 mg/dL LAB CHEMISTRY METHOD 09/08/2024 1:55 PM EST [facility] Triglycerides 257(H) 0 - 150 mg/dL LAB CHEMISTRY METHOD 09/08/2024 1:55 PM EST [facility] HDL 41 >=40 mg/dL LAB CHEMISTRY METHOD 09/08/2024 1:55 PM EST [facility] LDL Calculated 58 0 - 100 mg/dL LAB CHEMISTRY METHOD 09/08/2024 1:55 PM EST [facility] VLDL Cholesterol Yonathan 51.4 mg/dL LAB CHEMISTRY METHOD 09/08/2024 1:55 PM EST [facility] Non HDL Chol. (LDL+VLDL) 109 <145 mg/dL LAB CHEMISTRY METHOD 09/08/2024 1:55 PM EST [facility] Chol/HDL Ratio 3.7 0.0 - 4.4 LAB CHEMISTRY METHOD 09/08/2024 1:55 PM [facility] Blood Venous blood specimen / Unknown 09/08/2024 9:14 AM EST 09/08/2024 10:17 AM EST us Forest Wood MD LAB BLOOD ORDERABLES Final Resul t Performing Organization Address [facility]/ZIP Co de Phone Number [facility] [address] [place] [address], [place] [phone] * Vitamin D 25 hydroxy (09/08/2024 9:14 AM EST) Vit D, 25-Hydroxy 55.0 30.0 - 80.0 ng/mL LAB CHEMISTRY METHOD 09/08/2024 11:26 AM EST [facility] Blood Venous blood specimen / Unknown 09/08/2024 9:14 AM EST 09/08/2024 10:17 AM EST us Forest Wood MD LAB BLOOD ORDERABLES Final Resul t Performing Organization Address [facility] Co de Phone Number [facility] [address] [place] [address], [place] [phone] * Thyroid stimulating hormone (09/08/2024 9:14 AM EST) TSH 2.07 0.40 - 4.00 mcIU/mL LAB CHEMISTRY METHOD 09/08/2024 11:27 AM EST [facility] Blood Venous blood specimen / Unknown 09/08/2024 9:14 AM EST 09/08/2024 10:17 AM EST us Forest Wood MD LAB BLOOD ORDERABLES Final Resul t Performing Organization Address [facility] de Phone Number [facility] [address] [place] [address], [place] [phone] * (ABNORMAL) Parathyroid hormone intact (09/08/2024 9:14 AM EST) PTH 104.7(H) 18.5 - 88.0 pcg/mL LAB CHEMISTRY METHOD 09/08/2024 11:27 AM EST [facility] Blood Venous blood specimen / Unknown 09/08/2024 9:14 AM EST 09/08/2024 10:17 AM EST us Forest Wood MD LAB BLOOD ORDERABLES Final Resul t Performing Organization Address City/[facility]/ZIP Co de Phone Number [facility] [address] [place] [address], from Last 3 Months Insurance [employer] [address] [id number] MEDICARE Care Teams Staff Psychiatrist Relationship Specialty Start Date End Date Forest Wood MD [address] [place] [address] Dr [address] [place], [place] PCP - General Internal Medicine 11/07/24
--- OUTSIDE RECORDS SUMMARY | 2024-11-21 11:51 | XMS_ITS | Encounter Summary ---
Author Organization [facility] Address [address] [place] [address] Care Team Providers Care Trading Assistant Name Role Phone Forest Wood MD Primary Care Provider [phone] Encounter Details Date Type Department Care Team (Latest Contact Info) Description 08/07/2024 Lab Requisition [facility] Lab [address] [facility] [place] [address] Forest Wood MD [address] [place] [address] [address] [place], [place] Schizoaffective disorder, unspecified (CMS/HCC) Social History [...] Procedure Name Priority Date/Time Associated Diagnosis Comments CREATININE, SERUM Routine 08/07/2024 6:2 0 AM EST Schizoaffective disorder, unspecified (CMS/HCC) GABAPENTIN LEVEL Routine 08/07/2024 6:20 AM EST Schizoaffective disorder, unspecified (CMS/HCC) documented in this encounter Results * Gabapentin level (08/07/2024 6:20 AM EST) Gabapentin 9.2 2.0 - 12.0 ug/mL 08/10/2024 11:26 AM EST [facility] Comment: If applicable, any drug confirmation testing reported here was developed and the performance characteristics determined by [facility]. This confirmation testing has not been cleared or approved by the FDA. The laboratory is regulated under CLIA as qualified to perform high-complexity testing. This test is used for patient testing purposes. It should not be regarded as investigational or for research. Test performed at [facility], [address], [place], [place] ??[address] ? [phone] Darya Moore MD, PhD - Shirt Folder Blood Venous blood specimen / Unknown 08/07/2024 6:20 AM EST 08/07/2024 7:05 AM EST us Forest Wood MD LAB BLOOD ORDERABLES Final Resul t Performing Organization Address [facility] Co de Phone Number [facility] [address] [place] [address] * (ABNORMAL) Creatinine (08/07/2024 6:20 AM EST) Creatinine 2.68(H) 0.70 - 1.30 mg/dL LAB CHEMISTRY METHOD 08/07/2024 7:33 AM EST [facility] eGFR 25(L) >=60 mL/min/1. 73m2 LAB CHEMISTRY METHOD 08/07/2024 7:33 AM EST [facility] Comment:Calculation based on the??Chronic Kidney Disease Epidemiology Collaboration (CKD-EPI) equation refit??without adjustment for race. Blood Venous blood specimen / Unknown 08/07/2024 6:20 AM EST 08/07/2024 7:05 AM EST us Forest Wood MD LAB BLOOD ORDERABLES Final Resul t Performing Organization Address City/[facility] Co de Phone Number [facility] [address] [place] [address], [place] [phone] documented in this encounter Visit Diagnoses Diagnosis Schizoaffective disorder, unspecified (CMS/HCC) documented in this encounter Care Teams Trading Assistant Relationship Specialty Start Date End Date Forest Wood MD [address] [place] [address] Dr Var[address] [facility] [place], [place] PCP - General Internal Medicine 11/07/24 documented as of this encounter
--- OUTSIDE RECORDS SUMMARY | 2024-11-21 11:51 | XMS_ITS | Encounter Summary ---
Author Organization [facility] Address [address] [place] [address] Care Team Providers Care Junior Paralegal Name Role Phone Forest Wood MD Primary Care Provider [phone] Encounter Details Date Type Department Care Team (Latest Contact Info) Description 11/07/2024 Lab Requisition [facility] - [facility] Lab [address] [facility] [email or web address] [address] Forest Wood MD [address] [place] [address] [address] [place], [place] Schizoaffective disorder, unspecified (CMS/HCC) Social History [...] Procedure Name Priority Date/Time Associated Diagnosis Comments COMPREHENSIVE METABOLIC PANEL Routine 11/07/2024 6:31 AM EST Schizoaffective disorder, unspecified (CMS/HCC) documented in this encounter Results * (ABNORMAL) Comprehensive metabolic panel (11/07/2024 6:31 AM EST) Sodium 138 133 - 145 mmol/L LAB CHEMISTRY METHOD 11/07/2024 7:35 AM EST [facility] Potassium 5.1 3.5 - 5.5 mmol/L LAB CHEMISTRY METHOD 11/07/2024 7:35 AM EST [facility] Chloride 107 96 - 110 mmol/L LAB CHEMISTRY METHOD 11/07/2024 7:35 AM EST [facility] CO2 28 21 - 32 mmol/L LAB CHEMISTRY METHOD 11/07/2024 7:35 AM EST [facility] Anion Gap 3 3 - 11 LAB CHEMISTRY METHOD 11/07/2024 7:35 AM [facility] Glucose 107(H) 70 - 100 mg/dL LAB CHEMISTRY METHOD 11/07/2024 7:35 AM [facility] BUN 44(H) 5 - 25 mg/dL LAB CHEMISTRY METHOD 11/07/2024 7:35 AM [facility] Creatinine 3.33(H) 0.70 - 1.30 mg/dL LAB CHEMISTRY METHOD 11/07/2024 7:35 AM [facility] eGFR 19(L) >=60 mL/min/1. 73m2 LAB CHEMISTRY METHOD 11/07/2024 7:35 AM [facility] Comment:Calculation based on the??Chronic Kidney Disease Epidemiology Collaboration (CKD-EPI) equation refit??without adjustment for race. BUN/Creatinine Ratio 13.2 LAB CHEMISTRY METHOD 11/07/2024 7:35 AM [facility] Calcium 9.7 8.5 - 10.5 mg/dL LAB CHEMISTRY METHOD 11/07/2024 7:35 AM [facility] AST (SGOT) 26 10 - 42 unit/L LAB CHEMISTRY METHOD 11/07/2024 7:35 AM [facility] ALT (SGPT) 39 10 - 60 unit/L LAB CHEMISTRY METHOD 11/07/2024 7:35 AM [facility] Alkaline Phosphatase 77 42 - 121 unit/L LAB CHEMISTRY METHOD 11/07/2024 7:35 AM [facility] Total Protein 6.9 6.0 - 8.0 g/dL LAB CHEMISTRY METHOD 11/07/2024 7:35 AM [facility] Albumin 3.1(L) 3.2 - 5.0 g/dL LAB CHEMISTRY METHOD 11/07/2024 7:35 AM [facility] Total Bilirubin 0.3 0.0 - 1.4 mg/dL LAB CHEMISTRY METHOD 11/07/2024 7:35 AM EST [facility] Blood Venous blood specimen / Unknown 11/07/2024 6:31 AM EST 11/07/2024 7:03 AM EST us Forest Wood MD LAB BLOOD ORDERABLES Final Resul t [facility] [address] [place] [address], documented in this encounter Visit Diagnoses Diagnosis Schizoaffective disorder, unspecified (CMS/HCC) documented in this encounter Care Teams Junior Paralegal Relationship Specialty Start Date End Date Forest Wood MD [address] [place] [address] Dr [address] [place] PCP - General Internal Medicine 11/07/24 documented as of this encounter
--- OUTSIDE RECORDS SUMMARY | 2024-11-21 11:51 | XMS_ITS | Encounter Summary ---
Author Organization [facility] Address [address] [place] [address] Care Team Providers Care Apartment Maintenance Name Role Phone Forest Wood MD Primary Care Provider [phone] Encounter Details Date Type Department Care Team (Latest Contact Info) Description 09/07/2024 Lab Requisition [facility] - Main Lab [address] [facility] [place] [address] Forest Wood MD [address] [place] [address] [address] [place], [place] Schizoaffective disorder, unspecified (CMS/HCC) Social History [...] Diagnosis Comments CBC WITH AUTO DIFFERENTIAL Routine 09/07/2024 1:21 PM EST Schizoaffective disorder, unspecified (CMS/HCC) CBC AND DIFFERENTIAL Routine 09/07/2024 1:21 PM EST Schizoaffective disorder, unspecified (CMS/HCC) documented in this encounter Results * (ABNORMAL) CBC auto differential (09/07/2024 1:21 PM EST) WBC 12.4(H) 4.8 - 10.8 K/[facility] LAB HEMETOLOGY METHOD 09/07/2024 4:56 PM EST [facility] LAB RBC 4.40(L) 4.50 - 5.50 M/[facility] LAB HEMETOLOGY METHOD 09/07/2024 4:56 PM EST [facility] LAB Hemoglobin 12.0(L) 13.5 - 17.5 g/dL LAB HEMETOLOGY METHOD 09/07/2024 4:56 PM [facility] LAB Hematocrit 39.7(L) 42.0 - 54.0 % LAB HEMETOLOGY METHOD 09/07/2024 4:56 PM [facility] LAB MCV 89.6 79.0 - 98.0 [place] LAB HEMETOLOGY METHOD 09/07/2024 4:56 PM [facility] LAB MCH 27.1 27.0 - 32.0 pcg LAB HEMETOLOGY METHOD 09/07/2024 4:56 PM [facility] LAB MCHC 30.2(L) 32.0 - 37.0 g/dL LAB HEMETOLOGY METHOD 09/07/2024 4:56 PM [facility] LAB RDW 13.2 11.0 - 15.0 % LAB HEMETOLOGY METHOD 09/07/2024 4:56 PM [facility] LAB Platelets 296 130 - 400 K/mcL LAB HEMETOLOGY METHOD 09/07/2024 4:56 PM [facility] LAB MPV 9.9 7.0 - 11.0 FL LAB HEMETOLOGY METHOD 09/07/2024 4:56 PM [facility] LAB NRBC 0.0 <1.0 % LAB HEMETOLOGY METHOD 09/07/2024 4:56 PM [facility] LAB NRBC Absolute 0.00 <0.10 K/mcL LAB HEMETOLOGY METHOD 09/07/2024 4:56 PM [facility] LAB Neutrophils Relative 69.9 % LAB HEMETOLOGY METHOD 09/07/2024 4:56 PM [facility] LAB Lymphocytes Relative 18.0 % LAB HEMETOLOGY METHOD 09/07/2024 4:56 PM [facility] LAB Monocytes Relative 7.9 % LAB HEMETOLOGY METHOD 09/07/2024 4:56 PM EST [facility] LAB Eosinophils Relative 3.0 % LAB HEMETOLOGY METHOD 09/07/2024 4:56 PM [facility] LAB Basophils Relative 0.6 % LAB HEMETOLOGY METHOD 09/07/2024 4:56 PM [facility] LAB Immature Granulocytes Relative 0.6 % LAB HEMETOLOGY METHOD 09/07/2024 4:56 PM [facility] LAB Neutrophils Absolute 8.65(H) 1.50 - 7.00 K/mcL LAB HEMETOLOGY METHOD 09/07/2024 4:56 PM [facility] LAB Lymphocytes Absolute 2.23 1.00 - 5.00 K/mcL LAB HEMETOLOGY METHOD 09/07/2024 4:56 PM [facility] LAB Monocytes Absolute 0.98 0.20 - 1.00 K/mcL LAB HEMETOLOGY METHOD 09/07/2024 4:56 PM EST [facility] LAB Eosinophils Absolute 0.37 0.00 - 0.50 K/mcL LAB HEMETOLOGY METHOD 09/07/2024 4:56 PM [facility] LAB Basophils Absolute 0.08 0.00 - 0.20 K/mcL LAB HEMETOLOGY METHOD 09/07/2024 4:56 PM [facility] LAB Immature Granulocytes Absolute 0.08(H) 0.00 - 0.03 K/mcL LAB HEMETOLOGY METHOD 09/07/2024 4:56 PM [facility] LAB Blood Venous blood specimen / Unknown 09/07/2024 1:21 PM EST 09/07/2024 3:51 PM EST us Forest Wood MD LAB BLOOD ORDERABLES Final Resul t [facility] LAB [address] [place] [address], documented in this encounter Visit Diagnoses Diagnosis Schizoaffective disorder, unspecified (CMS/HCC) documented in this encounter Care Teams Apartment Maintenance Relationship Specialty Start Date End Date Forest Wood MD [address] LOYD Banks PCP - General Internal Medicine 11/07/24 documented as of this encounter
--- OUTSIDE RECORDS SUMMARY | 2024-11-21 11:51 | XMS_ITS | Encounter Summary ---
Author Organization [facility] Address [address] [place] [address] Care Team Providers Care Software Quality Manager Name Role Phone Forest Wood MD Primary Care Provider [phone] Encounter Details Date Type Department Care Team (Latest Contact Info) Description 07/26/2024 Lab Requisition [facility] - Main Lab 299 [facility] [place] [address] Forest Wood MD [address] [place] [address] [address] [place], [place] Schizoaffective disorder, unspecified (CMS/HCC) Social History [...] Procedure Name Priority Date/Time Associated Diagnosis Comments LIPID PANEL WITH REFLEX TO DIRECT LDL Routine 07/26/2024 5:30 AM EST Schizoaffective disorder, unspecified (CMS/HCC) CBC WITH AUTO DIFFERENTIAL Routine 07/26/2024 5:30 AM EST Schizoaffective disorder, unspecified (CMS/HCC) CBC AND DIFFERENTIAL Routine 07/26/2024 5:30 AM EST Schizoaffective disorder, unspecified (CMS/HCC) PHOSPHORUS Routine 07/26/2024 5:30 AM EST Schizoaffective disorder, unspecified (CMS/HCC) PARATHYROID HORMONE INTACT Routine 07/26/2024 5:30 AM EST Schizoaffective disorder, unspecified (CMS/HCC) COMPREHENSIVE METABOLIC PANEL Routine 07/26/2024 5:30 AM EST Schizoaffective disorder, unspecified (CMS/HCC) documented in this encounter Results * (ABNORMAL) CBC auto differential (07/26/2024 5:30 AM EST) WBC 15.1(H) 4.8 - 10.8 K/mcL LAB HEMETOLOGY METHOD 07/26/2024 6:57 AM [facility] LAB RBC 4.30(L) 4.50 - 5.50 M/mcL LAB HEMETOLOGY METHOD 07/26/2024 6:57 AM [facility] LAB Hemoglobin 11.6(L) 13.5 - 17.5 g/dL LAB HEMETOLOGY METHOD 07/26/2024 6:57 AM [facility] LAB Hematocrit 38.5(L) 42.0 - 54.0 % LAB HEMETOLOGY METHOD 07/26/2024 6:57 AM [facility] LAB MCV 90.4 79.0 - 98.0 FL LAB HEMETOLOGY METHOD 07/26/2024 6:57 AM [facility] LAB MCH 27.2 27.0 - 32.0 pcg LAB HEMETOLOGY METHOD 07/26/2024 6:57 AM [facility] LAB MCHC 30.1(L) 32.0 - 37.0 g/dL LAB HEMETOLOGY METHOD 07/26/2024 6:57 AM [facility] LAB RDW 13.6 11.0 - 15.0 % LAB HEMETOLOGY METHOD 07/26/2024 6:57 AM [facility] LAB Platelets 238 130 - 400 K/mcL LAB HEMETOLOGY METHOD 07/26/2024 6:57 AM [facility] LAB MPV 10.1 7.0 - 11.0 FL LAB HEMETOLOGY METHOD 07/26/2024 6:57 AM [facility] LAB NRBC 0.0 <1.0 % LAB HEMETOLOGY METHOD 07/26/2024 6:57 AM [facility] LAB NRBC Absolute 0.00 <0.10 K/mcL LAB HEMETOLOGY METHOD 07/26/2024 6:57 AM [facility] LAB Neutrophils Relative 63.8 % LAB HEMETOLOGY METHOD 07/26/2024 6:57 AM [facility] LAB Lymphocytes Relative 22.1 % LAB HEMETOLOGY METHOD 07/26/2024 6:57 AM [facility] LAB Monocytes Relative 8.2 % LAB HEMETOLOGY METHOD 07/26/2024 6:57 AM [facility] LAB Eosinophils Relative 4.1 % LAB HEMETOLOGY METHOD 07/26/2024 6:57 AM [facility] LAB Basophils Relative 0.9 % LAB HEMETOLOGY METHOD 07/26/2024 6:57 AM [facility] LAB Immature Granulocytes Relative 0.9 % LAB HEMETOLOGY METHOD 07/26/2024 6:57 AM [facility] LAB Neutrophils Absolute 9.63(H) 1.50 - 7.00 K/mcL LAB HEMETOLOGY METHOD 07/26/2024 6:57 AM [facility] LAB Lymphocytes Absolute 3.33 1.00 - 5.00 K/mcL LAB HEMETOLOGY METHOD 07/26/2024 6:57 AM [facility] LAB Monocytes Absolute 1.23(H) 0.20 - 1.00 K/mcL LAB HEMETOLOGY METHOD 07/26/2024 6:57 AM [facility] LAB Eosinophils Absolute 0.62(H) 0.00 - 0.50 K/mcL LAB HEMETOLOGY METHOD 07/26/2024 6:57 AM [facility] LAB Basophils Absolute 0.13 0.00 - 0.20 K/mcL LAB HEMETOLOGY METHOD 07/26/2024 6:57 AM EST [facility] Immature Granulocytes Absolute 0.13(H) 0.00 - 0.03 K/mcL LAB HEMETOLOGY METHOD 07/26/2024 6:57 AM EST [facility] LAB Blood Venous blood specimen / Unknown 07/26/2024 5:30 AM EST 07/26/2024 6:40 AM EST us Forest Wood MD LAB BLOOD ORDERABLES Final Resul t Performing Organization Address City/[facility]/ZIP Co de Phone Number [facility] LAB [address] [place] [address], [place] [phone] * Phosphorus (07/26/2024 5:30 AM EST) Phosphorus 4.5 2.5 - 4.5 mg/dL LAB CHEMISTRY METHOD 07/26/2024 7:36 AM EST [facility] LAB Blood Venous blood specimen / Unknown 07/26/2024 5:30 AM EST 07/26/2024 6:40 AM EST us Forest Wood MD LAB BLOOD ORDERABLES Final Resul t Performing Organization Address [facility] de Phone Number [facility] [address] [place] [address], [place] [phone] * Parathyroid hormone intact (07/26/2024 5:30 AM EST) PTH 78.5 18.5 - 88.0 pcg/mL LAB CHEMISTRY METHOD 07/26/2024 9:37 AM EST [facility] LAB Blood Venous blood specimen / Unknown 07/26/2024 5:30 AM EST 07/26/2024 6:40 AM EST us Forest Wood MD LAB BLOOD ORDERABLES Final Resul t Performing Organization Address [facility]/ZIP Co de Phone Number [facility] [address] [place] [address], [place] [phone] * (ABNORMAL) Lipid panel with reflex to direct LDL (07/26/2024 5:30 AM EST) Cholesterol 157 0 - 200 mg/dL LAB CHEMISTRY METHOD 07/26/2024 7:36 AM [facility] LAB Triglycerides 174(H) 0 - 150 mg/dL LAB CHEMISTRY METHOD 07/26/2024 7:36 AM [facility] LAB HDL 49 >=40 mg/dL LAB CHEMISTRY METHOD 07/26/2024 7:36 AM [facility] LAB LDL Calculated 73 0 - 100 mg/dL LAB CHEMISTRY METHOD 07/26/2024 7:36 AM [facility] LAB VLDL Cholesterol Yonathan 34.8 mg/dL LAB CHEMISTRY METHOD 07/26/2024 7:36 AM [facility] LAB Non HDL Chol. (LDL+VLDL) 108 <145 mg/dL LAB CHEMISTRY METHOD 07/26/2024 7:36 AM [facility] LAB Chol/HDL Ratio 3.2 0.0 - 4.4 LAB CHEMISTRY METHOD 07/26/2024 7:36 AM [facility] LAB Blood Venous blood specimen / Unknown 07/26/2024 5:30 AM EST 07/26/2024 6:40 AM EST us Forest Wood MD LAB BLOOD ORDERABLES Final Resul t [facility] [address] [place] [address], * (ABNORMAL) Comprehensive metabolic panel (07/26/2024 5:30 AM EST) Pathologist [facility] Sodium 141 133 - 145 mmol/L LAB CHEMISTRY METHOD 07/26/2024 8:40 AM [facility] LAB Potassium 4.7 3.5 - 5.5 mmol/L LAB CHEMISTRY METHOD 07/26/2024 8:40 AM [facility] LAB Chloride 108 96 - 110 mmol/L LAB CHEMISTRY METHOD 07/26/2024 8:40 AM [facility] LAB CO2 26 21 - 32 mmol/L LAB CHEMISTRY METHOD 07/26/2024 8:40 AM [facility] LAB Anion Gap 7 3 - 11 LAB CHEMISTRY METHOD 07/26/2024 8:40 AM [facility] LAB Glucose 75 70 - 100 mg/dL LAB CHEMISTRY METHOD 07/26/2024 8:40 AM [facility] BUN 50(H) 5 - 25 mg/dL LAB CHEMISTRY METHOD 07/26/2024 8:40 AM [facility] LAB Creatinine 2.85(H) 0.70 - 1.30 mg/dL LAB CHEMISTRY METHOD 07/26/2024 8:40 AM [facility] LAB eGFR 23(L) >=60 mL/min/1. 73m2 LAB CHEMISTRY METHOD 07/26/2024 8:40 AM [facility] LAB Comment:Calculation based on the??Chronic Kidney Disease Epidemiology Collaboration (CKD-EPI) equation refit??without adjustment for race. BUN/Creatinine Ratio 17.5 LAB CHEMISTRY METHOD 07/26/2024 8:40 AM [facility] LAB Calcium 10.0 8.5 - 10.5 mg/dL LAB CHEMISTRY METHOD 07/26/2024 8:40 AM [facility] LAB AST (SGOT) 16 10 - 42 unit/L LAB CHEMISTRY METHOD 07/26/2024 8:40 AM [facility] LAB ALT (SGPT) 29 10 - 60 unit/L LAB CHEMISTRY METHOD 07/26/2024 8:40 AM [facility] LAB Alkaline Phosphatase 70 42 - 121 unit/L LAB CHEMISTRY METHOD 07/26/2024 8:40 AM [facility] LAB Total Protein 6.9 6.0 - 8.0 g/dL LAB CHEMISTRY METHOD 07/26/2024 8:40 AM [facility] LAB Albumin 3.3 3.2 - 5.0 g/dL LAB CHEMISTRY METHOD 07/26/2024 8:40 AM EST [facility] Total Bilirubin 0.3 0.0 - 1.4 mg/dL LAB CHEMISTRY METHOD 07/26/2024 8:40 AM EST [facility] LAB Blood Venous blood specimen / Unknown 07/26/2024 5:30 AM EST 07/26/2024 6:40 AM EST us Forest Wood MD LAB BLOOD ORDERABLES Final Resul t [facility] [address] [place] [address], documented in this encounter Visit Diagnoses Diagnosis Schizoaffective disorder, unspecified (CMS/HCC) documented in this encounter Care Teams Software Quality Manager Relationship Specialty Start Date End Date Forest Wood MD [address] [place] [address] Dr [address] [place]YD PCP - General Internal Medicine 11/07/24 documented as of this encounter
--- OUTSIDE RECORDS SUMMARY | 2024-11-21 11:51 | XMS_ITS | Encounter Summary ---
Author Organization [facility] Address [address] [place] [address] Care Team Providers Care Hotel Or Motel Manager Name Role Phone Forest Wood MD Primary Care Provider [phone] Encounter Details Date Type Department Care Team (Late st Contact Info) Description 08/14/2024 Lab Requisition [facility] - Main Lab [address] [place] [address] Forest Wood MD [address] [place] [address] [address] [place], [place] Vitamin D deficiency, unspecified Social History Tobacco Use Types Packs/Day Years [...] Procedure Name Priority Date/Time Associated Diagnosis Comments VITAMIN D 25 HYDROXY Routine 08/14/2024 6:35 AM EST Vitamin D deficiency, unspecified documented in this encounter Results * Vitamin D 25 hydroxy (08/14/2024 6:35 AM EST) Vit D, 25-Hydroxy 56.4 30.0 - 80.0 ng/mL LAB CHEMISTRY METHOD 08/14/2024 7:39 AM EST [facility] LAB Blood Venous blood specimen / Unknown 08/14/2024 6:35 AM EST 08/14/2024 7:06 AM EST us Forest Wood MD LAB BLOOD ORDERABLES Final Resul t [facility] LAB [address] [place] [address], documented in this encounter Visit Diagnoses Diagnosis Vitamin D deficiency, unspecified documented in this encounter Care Teams Hotel Or Motel Manager Relationship Specialty Start Date End Date Forest Wood MD [address] [place] [address] Dr [address] LOYD Banks PCP - General Internal Medicine 11/07/24 documented as of this encounter
--- OUTSIDE RECORDS SUMMARY | 2024-11-21 11:51 | XMS_ITS | Encounter Summary ---
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 Social History Tobacco Use Types Packs/Day Years [...] DIFFERENTIAL Routine 11/08/2024 6:31 AM EST Other detention (current) drug therapy CBC AND DIFFERENTIAL Routine 11/08/2024 6:31 AM EST Other detention (current) drug therapy documented in this encounter Results * (ABNORMAL) CBC auto differential (11/08/2024 6:31 AM EST) WBC 11.2(H) 4.8 - 10.8 K/mcL LAB HEMETOLOGY METHOD 11/08/2024 7:43 AM EST [facility] LAB RBC 4.20(L) 4.50 - 5.50 M/mcL LAB HEMETOLOGY METHOD 11/08/2024 7:43 AM EST [facility] LAB Hemoglobin 11.5(L) 13.5 - 17.5 g/dL LAB HEMETOLOGY METHOD 11/08/2024 7:43 AM [facility] LAB Hematocrit 37.7(L) 42.0 - 54.0 % LAB HEMETOLOGY METHOD 11/08/2024 7:43 AM [facility] LAB MCV 89.1 79.0 - 98.0 FL LAB HEMETOLOGY METHOD 11/08/2024 7:43 AM [facility] LAB MCH 27.2 27.0 - 32.0 pcg LAB HEMETOLOGY METHOD 11/08/2024 7:43 AM [facility] LAB MCHC 30.5(L) 32.0 - 37.0 g/dL LAB HEMETOLOGY METHOD 11/08/2024 7:43 AM [facility] LAB RDW 13.3 11.0 - 15.0 % LAB HEMETOLOGY METHOD 11/08/2024 7:43 AM [facility] LAB Platelets 238 130 - 400 K/mcL LAB HEMETOLOGY METHOD 11/08/2024 7:43 AM [facility] LAB MPV 9.9 7.0 - 11.0 FL LAB HEMETOLOGY METHOD 11/08/2024 7:43 AM [facility] LAB NRBC 0.0 <1.0 % LAB HEMETOLOGY METHOD 11/08/2024 7:43 AM [facility] LAB NRBC Absolute 0.00 <0.10 K/mcL LAB HEMETOLOGY METHOD 11/08/2024 7:43 AM [facility] LAB Neutrophils Relative 66.3 % LAB HEMETOLOGY METHOD 11/08/2024 7:43 AM [facility] LAB Lymphocytes Relative 18.2 % LAB HEMETOLOGY METHOD 11/08/2024 7:43 AM [facility] LAB Monocytes Relative 8.5 % LAB HEMETOLOGY METHOD 11/08/2024 7:43 AM [facility] LAB Eosinophils Relative 5.7 % LAB HEMETOLOGY METHOD 11/08/2024 7:43 AM EST [facility] LAB Basophils Relative 0.8 % LAB HEMETOLOGY METHOD 11/08/2024 7:43 AM [facility] LAB Immature Granulocytes Relative 0.5 % LAB HEMETOLOGY METHOD 11/08/2024 7:43 AM [facility] LAB Neutrophils Absolute 7.39(H) 1.50 - 7.00 K/mcL LAB HEMETOLOGY METHOD 11/08/2024 7:43 AM EST [facility] LAB Lymphocytes Absolute 2.03 1.00 - 5.00 K/mcL LAB HEMETOLOGY METHOD 11/08/2024 7:43 AM [facility] LAB Monocytes Absolute 0.95 0.20 - 1.00 K/mcL LAB HEMETOLOGY METHOD 11/08/2024 7:43 AM [facility] LAB Eosinophils Absolute 0.64(H) 0.00 - 0.50 K/mcL LAB HEMETOLOGY METHOD 11/08/2024 7:43 AM EST [facility] LAB Basophils Absolute 0.09 0.00 - 0.20 K/mcL LAB HEMETOLOGY METHOD 11/08/2024 7:43 AM [facility] LAB Immature Granulocytes Absolute 0.06(H) 0.00 - 0.03 K/mcL LAB HEMETOLOGY METHOD 11/08/2024 7:43 AM EST [facility] LAB Blood Venous blood specimen / Unknown 11/08/2024 6:31 AM EST 11/08/2024 7:18 AM EST us Forest Wood MD LAB BLOOD ORDERABLES Final Resul t [facility] [address] [place] [address], documented in this encounter Visit Diagnoses Diagnosis Other detention (current) drug therapy documented in this encounter Care Teams Natural Gas Shothole Driller Relationship Specialty Start Date End Date Forest Wood MD [address] [place] [address] Dr [address] LOYD Banks PCP - General Internal Medicine 11/07/24 documented as of this encounter
== END 2024-11-21 11:06 | disposition home or self-care (01) ==
LOC: HO.HUSH 09:57
PROVIDERS: PCP Hospitalist; Visit Provider Urology
DX: N31.9 Neuromuscular dysfunction of bladder, unspecified (principal); R35.1 Nocturia; Z13.9 Encounter for screening, unspecified
CPT/HCPCS: 99213

== ENCOUNTER → 2024-11-21 09:57 | Outpatient (BNVA) | payer MEDICARE, MEDICAID, SELFPAY | PROVIDERS: PCP Hospitalist; Visit Provider Urology | DX: N31.9 Neuromuscular dysfunction of bladder, unspecified (principal); R35.1 Nocturia | CPT/HCPCS: 81003; 99212 ==

== ENCOUNTER 2025-02-19 08:55 | Inpatient (IN) | payer MEDICARE, MEDICAID, SELFPAY ==
[2025-02-19] VITALS (17 sets, daily range): BP systolic 71–129; BP diastolic 36–71; PULSE 108–130; RESP 20–27; TEMP 36.8–39.5; O2SAT 88–97; BMI 37.4
--- NOTE | ~2025-02-19 | XR_ITS ---
EXAMINATION: XR CHEST CLINICAL INFORMATION: ng tube COMPARISON: None available. TECHNIQUE: Frontal view of the chest was obtained. FINDINGS: NG tube courses into the stomach, side hole below the GE junction, with tip in the region of the duodenal bulb. There is cardiac enlargement. Mediastinal and hilar contours appear normal. Prominent epicardial fat. Lungs demonstrate bilateral subpleural reticular changes with small airway thickening, and subsegmental consolidative opacity in the left base. There is no pneumothorax or pleural effusion evident. No focal osseous or soft tissue abnormality. XR/XR chest 1V IMPRESSION: 1. NG tube positioned with the tip in the region of the duodenal bulb. For optimal positioning, this could be retracted slightly. 2. Lungs demonstrating patchy peribronchial thickening, with subsegmental linear opacities in the retrocardiac region. This could represent atelectasis or pneumonia in the appropriate clinical setting. 3. There is no effusion or pneumothorax. Electronically signed by: Vaibhav Mejias MD 02/19/2025 01:09 PM EDT
--- NOTE | ~2025-02-19 | CT_ITS ---
EXAMINATION: CT CHEST WITHOUT IV CONTRAST, CT ABDOMEN PELVIS WITHOUT IV CONTRAST INDICATION: ams, nausea and vomiting COMPARISON: Correlation is made with a CT of the abdomen and pelvis without contrast dated 10/05/2022. TECHNIQUE: CT scan of the chest, abdomen and pelvis was performed without contrast using standard departmental protocol. Coronal and sagittal reformatted images were generated and reviewed. Oral contrast material was not administered at the request of the referring physician. This CT exam was performed with one or more of the following dose reduction techniques: automated exposure control, adjustment of the mA and/or kV according to patient size, use of iterative reconstruction technique. DLP: 1106 mGy-cm CHEST: THYROID: The thyroid is unremarkable. LUNGS: There is dependent atelectasis bilaterally. There is scarring at the lung bases. MEDIASTINUM: There are subcentimeter paraesophageal lymph nodes. NED: Evaluation of the hilar regions is limited by lack of intravenous contrast material. CARDIOVASCULATURE: The heart is normal in size. There is no pericardial effusion. The thoracic aorta is normal in caliber. DEGREE OF CORONARY CALCIFICATION: moderate PLEURA: There is no pleural effusion. No pneumothorax. MAIN AIRWAYS: The mainstem bronchi and proximal branches are patent. AXILLA: There is no axillary lymphadenopathy. SOFT TISSUES: There is fluid within the esophagus up to the thoracic inlet. BONES: The bones are intact. ABDOMEN: LIVER: The liver demonstrates a somewhat nodular contour with hypertrophy of the left and caudate lobes suggestive of cirrhosis. The liver has an unremarkable unenhanced appearance. GALLBLADDER / BILE DUCTS: The gallbladder is surgically absent. There is no intra or extrahepatic biliary ductal dilatation. SPLEEN: The spleen is normal in size and has an unremarkable unenhanced appearance. PANCREAS: The pancreas has an unremarkable unenhanced appearance. There is a splenule the lower pole of the spleen. ADRENAL GLANDS: Unremarkable. KIDNEYS/RETROPERITONEUM: The kidneys demonstrate lobulated contours. There are likely small cysts bilaterally. Again seen is a 1.8 cm somewhat hyperdense lesion at the upper pole of the right kidney. LYMPH NODES: Multiple subcentimeter retroperitoneal lymph nodes are identified which are not enlarged by CT criteria. VASCULATURE: The abdominal aorta is normal in caliber. MESENTERY/PERITONEUM: No free fluid. No masses. There is no free intraperitoneal gas. STOMACH: The stomach is distended with fluid. SMALL BOWEL: Proximal small bowel loops are dilated and fluid-filled. There is collapse of distal loops. A definite transition point is not seen. COLON: The colon is unremarkable. APPENDIX: The appendix is not seen, however no inflammatory changes are seen adjacent to the cecum. URINARY BLADDER/PELVIC ORGANS: The urinary bladder is unremarkable. The prostate is normal in size. BONES / SOFT TISSUES: There is degenerative disc disease of the spine. CT/CT abdomen pelvis wo IV con IMPRESSION: 1. Findings consistent with mid small bowel obstruction. A definite transition point is not identified. 2. Findings suggestive of cirrhosis of the liver. 3. Stable 1.8 cm hyperdense lesion at the upper pole of the right kidney which could represent a hyperdense cyst. Correlation with ultrasound is recommended. Electronically signed by: Rolo Cox MD 02/19/2025 10:54 AM EDT
--- NOTE | 2025-02-19 09:11 | ECG_ITS ---
Test Reason : VOMITING Blood Pressure : */* mmHG Vent. 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
[2025-02-19] MEDS: 0.9 % Sodium Chloride 3,060 ML 3060 ML IV (09:18)
[2025-02-19 09:31] LABS: MANUAL DIFF FLAG NO
--- NOTE | 2025-02-19 09:31 | ED_ITS ---
HPI - Abdominal Pain General Chief Complaint: Abdominal Pain Stated Complaint: ABD PAIN,DISTENTED,NO BM X2D,80/56,FROM SNF Time Seen by Provider: 02/19/25 09:10 History of Present Illness HPI narrative: 67 year old male with history of TBI, BPH, orthostatic hypotension, chronic hepatitis C, hld, epilepsy, secondary hyperparathyroidism of renal origin, GERD, schizoaffective disorder, urinary retention, osteoporosis, gait/mobility impairment, ADHD, and CKD stage 3 presented to the ED via EMS from [facility] for further evaluation of abdominal distension, decreased PO intake, generalized weakness, as well as N/V. Vomiting of brown substances. Patient was also noted to have a low blood pressure. Sent in for further evaluation. History of cholecystectomy many years ago. Related Data Home Medications ?Medication ?Instructions ?Recorded ?Confirmed albuterol sulfate 90 mcg/actuation 2 puff inhalation Q4H PRN Wheezing 07/10/21 05/23/24 aerosol inhaler ascorbic acid (vitamin C) 500 mg 500 mg PO DAILY 07/10/21 05/23/24 tablet (Vitamin C) calcitriol 0.25 mcg capsule 0.25 mcg PO TUFR 07/10/21 05/23/24 clomipramine 50 mg capsule 100 mg PO BEDTIME ANXIETY 07/10/21 05/23/24 docusate sodium 100 mg tablet 200 mg PO DAILY 07/10/21 05/23/24 escitalopram oxalate 10 mg tablet 10 mg PO DAILY 07/10/21 05/23/24 fenofibrate nanocrystallized 145 145 mg PO DAILY 07/10/21 05/23/24 mg tablet ferrous sulfate 325 mg (65 mg 325 mg PO DAILY 07/10/21 05/23/24 iron) tablet fludrocortisone 0.1 mg tablet 0.2 mg PO DAILY 07/10/21 05/23/24 gabapentin 300 mg capsule 300 mg PO TID 07/10/21 05/23/24 guaifenesin 100 mg/5 mL oral liquid 200 mg PO Q4H PRN Cough 07/10/21 05/23/24 loratadine 10 mg tablet 10 mg PO DAILY PRN Allergy Symptoms 07/10/21 05/23/24 milk thistle 240 mg PO TID 07/10/21 05/23/24 multivitamin 1 tab PO DAILY 07/10/21 05/23/24 pramipexole 1 mg tablet 1 mg PO DAILY 07/10/21 05/23/24 sennosides 8.6 mg tablet (senna) 8.6 mg PO DAILY PRN Constipation 07/10/21 05/23/24 bisacodyl 10 mg rectal suppository 10 mg ME DAILY PRN Constipation 05/13/22 05/23/24 hydrocortisone 10 mg tablet 10 mg PO TID 05/13/22 05/23/24 clozapine 200 mg tablet 200 mg PO BEDTIME 06/02/22 05/23/24 sofosbuvir 400 mg-velpatasvir 100 1 tab PO DAILY 10/05/22 05/23/24 mg tablet (Epclusa) Previous Rx's ?Medication ?Instructions ?Recorded alfuzosin 10 mg tablet,extended 10 mg PO DAILY 90 days #90 tabs 05/23/24 release 24 hr Allergies Allergy/AdvReac Type Severity Reaction Status Date / Time NSAIDS (Non-Steroidal Allergy Unknown UNKNOWN Verified 02/19/25 09:00 Anti-Inflamma [NSAIDS (NON-STEROIDAL ANTI-INFLAMMA] Review of Systems Review of Systems Positive nausea vomiting Yes all other systems are reviewed and are negative [facility] Past Medical History Attestation statement: The following information was validated with the patient. Medical History Partial small bowel obstruction Schizoaffective disorder Chronic kidney disease, stage 3 Anemia Hyperlipidemia Orthostatic hypotension GERD (gastroesophageal reflux disease) Attention deficit hyperactivity disorder Neurogenic bladder Hematuria TBI (traumatic brain injury) Surgical History History of surgery Social History Social History Household Members: Other Housing: Assisted Living Facility Do you presently have visiting nurse or other home services: Yes Alcohol intake: never Patient Tobacco Use Status: Former Tobacco user Tobacco use type: Cigarette and Cigar Smoked in Last 30 Days: No Use of substances other than those prescribed or required for medical reasons: No Advance Directives: Yes Advance Directives on File: Yes Advance Directives Date on File: 07/10/21 service: No Current occupational status: disabled Physical Exam ED Vital Signs: Vital Signs - 24 hr 02/19/25 08:58 02/19/25 09:41 02/19/25 10:00 Temperature 103.1 F H Pulse Rate 128 H 113 H 111 H Respiratory Rate 22 H 20 22 H Blood Pressure 76/36 L 98/45 L 108/51 L Pulse Oximetry 88 L 97 94 Oxygen Delivery Method Room Air Nasal Cannula Nasal Cannula Oxygen Flow Rate 2 2 02/19/25 10:34 02/19/25 11:06 02/19/25 11:34 Temperature 98.4 F Pulse Rate 109 H 108 H 108 H Respiratory Rate 22 H 24 H 26 H Blood Pressure 108/49 L 92/54 L 88/53 L Pulse Oximetry 96 94 93 Oxygen Delivery Method Nasal Cannula Room Air Nasal Cannula Oxygen Flow Rate 2 2 02/19/25 11:55 02/19/25 12:14 02/19/25 12:16 Temperature 98.2 F Pulse Rate 109 H 109 H Respiratory Rate 24 H 27 H Blood Pressure 81/51 L 71/39 L 71/39 L Pulse Oximetry 92 93 Oxygen Delivery Method Nasal Cannula Nasal Cannula Oxygen Flow Rate 2 2 02/19/25 13:00 02/19/25 13:22 02/19/25 13:42 Temperature Pulse Rate 110 H 110 H 109 H Respiratory Rate 27 H 25 H 26 H Blood Pressure 88/52 L 99/53 L 102/55 L Pulse Oximetry 92 95 95 Oxygen Delivery Method Nasal Cannula Nasal Cannula Nasal Cannula Oxygen Flow Rate 2 2 2 02/19/25 14:00 Temperature 98.7 F Pulse Rate 113 H Respiratory Rate 20 Blood Pressure 115/55 L Pulse Oximetry 95 Oxygen Delivery Method Nasal Cannula Oxygen Flow Rate 2 BMI result Body Mass Index 37.4 Appearance: Alert. Oriented X3. No acute distress. Eyes: Pupils equal, round and reactive to light. ENT: Pharynx normal. Neck: Normal inspection. Neck supple. No lymph nodes noted. No crepitus CVS: Normal heart rate and rhythm. Pulses normal. Normal S1 and S2 Respiratory: No respiratory distress. Breath sounds normal. No Wheezing. No rales Abdomen: Soft and nontender. No rigidity. No distention. good BS x4 Skin: Skin warm and dry. Normal skin color. Normal skin turgor. Extremities: No lower extremity edema. Neurovascular intact to all extremities. No Lacerations. No Rash Neuro: Oriented X 3. No motor deficit. No sensory deficit. Moving all extermities. No slurred speech Medical Decision Making Medical Decision Making MDM Narrative: Patient presented today from [facility] with multitude of medical issues. Has a history of small-bowel obstruction in the past. Had distended abdomen. Had generalized malaise and low blood pressure. Multiple L of fluid was given. Sepsis protocol was followed. Patient's lactate was elevated. Repeat lactate was 2.4. Repeat exam showed patient abdomen improved after the NG tube. CT scan of the abdomen consistent with small-bowel obstruction per my interpretation. Patient's white count is 6.9. Patient is electrolytes show elevated BUN creatinine consistent with acute on chronic renal insufficiency. Because of patient's low blood pressure initially we considered patient to be transferred. But after IV fluids after albumin blood pressure improved. Case was consulted by the hospitalist team and by the surgical team. Will accept patient. Procedure note an NG-tube was placed by myself. There was no complication. My interpretation of the x-ray showed the NG tube was in place. After placing patient on suction over a L of fluid was removed. Repeat focal exam for sepsis showed patient's symptom improving is awake alert repeat abdominal exam was soft. Differential Diagnosis Differential Diagnoses: The differential diagnosis associated with the presentation includes Small-bowel obstruction. Ischemic bowel Admission/Observation Consideration of admission/observation: Escalation of care including admission/observation considered Consult Healthcare Provider Management of the patient was discussed with: Hospitalist and Network Pricing Consultant (Surgery) Lab Data MDM Lab Attestation statement: I reviewed the patient's lab results. 02/19/25 09:23 02/19/25 09:23 Labs: Lab Results 02/19/25 02/19/25 02/19/25 Range/Units 09:23 09:24 09:48 WBC 6.9 (4.8-10.8) X10*3/uL RBC 4.74 (4.60-5.80) X10*6/uL Hgb 13.0 L (14.0-18.0) g/dl Hct 40.9 L (42.0-52.0) % MCV 86.3 (80.0-98.0) fL MCH 27.4 (27.0-33.0) pg MCHC 31.8 (31.0-36.0) g/dl RDW 13.9 (11.0-16.0) % Plt Count 301 D (160-400) X10*3/uL MPV 9.5 (9.4-12.4) fL Immature Gran % (Auto) 0.4 (0.0-0.4) % Neut % (Auto) 75.3 H (45-73) % Lymph % (Auto) 13.2 L (20-40) % Boyle % (Auto) 10.7 (2-11) % Eos % (Auto) 0.3 (0-4) % Baso % (Auto) 0.1 (0-2) % Lymph # (Auto) 0.9 L (1.2-4.9) X10*3/uL Boyle # (Auto) 0.7 (0.1-1.2) X10*3/uL Eos # (Auto) 0.0 (0.0-0.4) X10*3/uL Baso # (Auto) 0.0 (0.0-0.2) X10*3/uL Abs Immat Gran (auto) 0.03 (0.00-0.03) X10*3/uL Absolute Neuts (auto) 5.2 (2.0-8.3) x10*3/uL Absolute Nucleated RBC 0.000 (0.0-0.012) X10*3/uL Nucleated RBC % (auto) 0.0 (0.0-0.2) /100WBC PT 12.8 H (10.9-12.4) SEC INR 1.1 (0.9-1.1) Sodium 147 H (135-145) mmol/L Potassium 4.8 (3.3-5.1) mmol/L Chloride 107 (96-108) mmol/L Carbon Dioxide 25 (22-29) mmol/L Anion Gap 20 (12-20) BUN 65 H (9-16) mg/dL Creatinine 3.59 H (0.5-1.4) mg/dL Estim Creat Clear Calc 21.6 Estimated GFR 17 Random Glucose 144 H (60-115) mg/dL Lactic Acid 3.7 H* (0.5-2.0) mmol/L Lactic Acid F/U @ 2Hr (0.5-2.0) mmol/L Calcium 10.0 D (8.4-10.2) mg/dL Total Bilirubin 0.8 (0.0-1.0) mg/dL Direct Bilirubin 0.4 (0.0-0.5) mg/dL AST 35 (5-37) U/L ALT 36 (0-40) U/L Alkaline Phosphatase 78 (39-117) U/L Troponin I High Sens 12.6 (<3.5-35.0) ng/L Total Protein 7.6 (6.5-8.0) g/dL Albumin 3.9 (3.5-5.0) g/dL Stool Occult Blood NEGATIVE (NEGATIVE) Influenza Type A (PCR) NEGATIVE (Negative) Influenza Type B (PCR) NEGATIVE (Negative) RSV RNA Qual (PCR) NEGATIVE (Negative) SARS-CoV-2 RNA (RT-PCR) NEGATIVE (Negative) 02/19/25 Range/Units 12:04 WBC (4.8-10.8) X10*3/uL RBC (4.60-5.80) X10*6/uL Hgb (14.0-18.0) g/dl Hct (42.0-52.0) % MCV (80.0-98.0) fL MCH (27.0-33.0) pg MCHC (31.0-36.0) g/dl RDW (11.0-16.0) % Plt Count (160-400) X10*3/uL MPV (9.4-12.4) fL Immature Gran % (Auto) (0.0-0.4) % Neut % (Auto) (45-73) % Lymph % (Auto) (20-40) % Boyle % (Auto) (2-11) % Eos % (Auto) (0-4) % Baso % (Auto) (0-2) % Lymph # (Auto) (1.2-4.9) X10*3/uL Boyle # (Auto) (0.1-1.2) X10*3/uL Eos # (Auto) (0.0-0.4) X10*3/uL Baso # (Auto) (0.0-0.2) X10*3/uL Abs Immat Gran (auto) (0.00-0.03) X10*3/uL Absolute Neuts (auto) (2.0-8.3) x10*3/uL Absolute Nucleated RBC (0.0-0.012) X10*3/uL Nucleated RBC % (auto) (0.0-0.2) /100WBC PT (10.9-12.4) SEC INR (0.9-1.1) Sodium (135-145) mmol/L Potassium (3.3-5.1) mmol/L Chloride (96-108) mmol/L Carbon Dioxide (22-29) mmol/L Anion Gap (12-20) BUN (9-16) mg/dL Creatinine (0.5-1.4) mg/dL Estim Creat Clear Calc Estimated GFR Random Glucose (60-115) mg/dL Lactic Acid (0.5-2.0) mmol/L Lactic Acid F/U @ 2Hr 2.4 H* (0.5-2.0) mmol/L Calcium (8.4-10.2) mg/dL Total Bilirubin (0.0-1.0) mg/dL Direct Bilirubin (0.0-0.5) mg/dL AST (5-37) U/L ALT (0-40) U/L Alkaline Phosphatase (39-117) U/L Troponin I High Sens (<3.5-35.0) ng/L Total Protein (6.5-8.0) g/dL Albumin (3.5-5.0) g/dL Stool Occult Blood (NEGATIVE) Influenza Type A (PCR) (Negative) Influenza Type B (PCR) (Negative) RSV RNA Qual (PCR) (Negative) SARS-CoV-2 RNA (RT-PCR) (Negative) Independent Interpretation I performed an independent interpretation of an: CT Scan (CT scan by my interpretation showed signs of small-bowel obstruction) Radiology Impression Discussion of test interpretation with radiology: I have reviewed the radiologist's reading. External Record Review External record reviewed: Inpatient record and Outpatient record Medications Administered Discontinued Medications Generic Name Dose Route Start Last Admin Trade Name Freq PRN Reason Stop Dose Admin Acetaminophen 650 mg 02/19/25 09:10 02/19/25 09:48 Acetaminophen Supp 650 Mg Supp.Rect ME 02/19/25 09:11 650 mg ONCE ONE Administration Sodium Chloride 3,060 mls @ 3,060 mls/hr 02/19/25 09:14 02/19/25 10:33 Ns 30 ml/kg infuse over 1 hr (3060 ml) 02/19/25 10:13 Infused IV Infusion .Q1H STA Piperacillin Sod/Tazobactam 100 mls @ 200 mls/hr 02/19/25 10:15 02/19/25 11:10 Sod 4.5 gm/ Sodium Chloride IV 02/19/25 10:44 Infused ONCE ONE Infusion Sodium Chloride 1,000 mls @ 999 mls/hr 02/19/25 11:30 02/19/25 11:34 Ns IV 02/19/25 12:30 Infused .Q1H1M BRUCE Infusion Albumin Human 50 mls @ 100 mls/hr 02/19/25 11:45 02/19/25 12:35 Kedbumin 25 % IV 02/19/25 12:44 Infused Q30M BRUCE Infusion Sodium Chloride 500 mls @ 999 mls/hr 02/19/25 13:45 02/19/25 14:41 Ns IV 02/19/25 14:15 Infused .Q31M BRUCE Infusion Lidocaine HCl 10 ml 02/19/25 12:04 02/19/25 12:13 Lidocaine Hcl 2 % Urojet 10 Ml Jel.Pf.Dimple TOPICAL 02/19/25 12:05 10 ml ONCE ONE Administration Critical Care Time Critical Care Time Critical Care Time: Yes Total Critical Care Time: 40 Attestation: I have personally provided 40 minutes of critical care time exclusive of time spent on separately billable procedures. ?Time includes review of lab data, radiology results, discussion with consultants, and monitoring for potential decompensation. ?Interventions were performed as documented above Discharge Plan Discharge Clinical Impression: Complete small bowel obstruction Patient Disposition: Admitted As Inpatient Prescriptions: No Action sofosbuvir-velpatasvir [Epclusa] 400-100 mg Tablet 1 tab PO DAILY multivitamin Tablet 1 tab PO DAILY pramipexole 1 mg Tablet 1 mg PO DAILY sennosides [senna] 8.6 mg Tablet 8.6 mg PO DAILY PRN (Reason: Constipation) guaifenesin 100 mg/5 mL Liquid 200 mg PO Q4H PRN (Reason: Cough) ascorbic acid (vitamin C) [Vitamin C] 500 mg Tablet 500 mg PO DAILY ferrous sulfate 325 mg (65 mg iron) Tablet 325 mg PO DAILY gabapentin 300 mg Capsule 300 mg PO TID clomipramine 50 mg capsule 100 mg PO BEDTIME albuterol sulfate 90 mcg/actuation Hfa Aerosol Inhaler 2 puff INHALATION Q4H PRN (Reason: Wheezing) fludrocortisone 0.1 mg Tablet 0.2 mg PO DAILY calcitriol 0.25 mcg capsule 0.25 mcg PO TUFR docusate sodium 100 mg Tablet 200 mg PO DAILY loratadine 10 mg Tablet 10 mg PO DAILY PRN (Reason: Allergy Symptoms) escitalopram oxalate 10 mg Tablet 10 mg PO DAILY fenofibrate nanocrystallized 145 mg tablet 145 mg PO DAILY milk thistle 240 mg PO TID bisacodyl 10 mg Suppository 10 mg ME DAILY PRN (Reason: Constipation) hydrocortisone 10 mg Tablet 10 mg PO TID clozapine 200 mg tablet 200 mg PO BEDTIME alfuzosin 10 mg tablet extended release 24 hr 10 mg PO DAILY 90 Days Qty: 90 3RF Rx Instructions: administer after the same meal each day Print Language: Burkinan
[2025-02-19 09:36] LABS: Basophils Percent Auto 0.1 % (0-2); Eosinophils Percent Auto 0.3 % (0-4); Hematocrit 40.9 % (42.0-52.0); Imm Gran Abs Auto 0.03 X10*3/uL (0.00-0.03); Imm Gran Pct Auto 0.4 % (0.0-0.4); Lymphocytes Absolute Auto 0.9 X10*3/uL (1.2-4.9); Lymphocytes Percent Auto 13.2 % (20-40); Mean Corpuscular HGB Conc 31.8 g/dl (31.0-36.0); Mean Corpuscular Hemoglobin 27.4 pg (27.0-33.0); Mean Corpuscular Volume 86.3 fL (80.0-98.0); Mean Platelet Volume 9.5 fL (9.4-12.4); Monocytes Absolute Auto 0.7 X10*3/uL (0.1-1.2); Monocytes Percent Auto 10.7 % (2-11); Neutrophils Absolute Auto 5.2 x10*3/uL (2.0-8.3); Neutrophils Percent Auto 75.3 % (45-73); Red Blood Count 4.74 X10*6/uL (4.60-5.80); Red Cell Distribution Width 13.9 % (11.0-16.0); White Blood Count 6.9 X10*3/uL (4.8-10.8)
[2025-02-19 09:37] LABS: Platelet Count 301 X10*3/uL (160-400)
[2025-02-19 09:41] LABS: INTERNATIONAL NORM RATIO 1.1 (0.9-1.1); Prothrombin Time 12.8 SEC (10.9-12.4)
[2025-02-19] MEDS: Acetaminophen Supp 650 MG SUPP.RECT PR (09:48)
[2025-02-19 09:55] LABS: OBS Int Ctl Valid YES; OBS1 NEGATIVE (NEGATIVE)
[2025-02-19 10:13] LABS: Influenza A PCR NEGATIVE (Negative); Influenza B PCR NEGATIVE (Negative); Resp Syncy Virus RNA Qual PCR NEGATIVE (Negative); SARS COV2 PCR INHOUSE NEGATIVE (Negative)
[2025-02-19 10:14] LABS: Lactic Acid 3.7 mmol/L (0.5-2.0)
[2025-02-19 10:17] LABS: Albumin Level 3.9 g/dL (3.5-5.0); Alkaline Phosphatase 78 U/L (39-117); Anion Gap 20 (12-20); Aspartate Amino Transferase 35 U/L (5-37); Bilirubin Direct 0.4 mg/dL (0.0-0.5); Bilirubin Total 0.8 mg/dL (0.0-1.0); Blood Urea Nitrogen 65 mg/dL (9-16); Carbon Dioxide 25 mmol/L (22-29); Chloride 107 mmol/L (96-108); Creatinine Clr Calc Pharmacy 21.6; Estimated Glomerular Filt Rate 17; Glucose Random 144 mg/dL (60-115); Potassium 4.8 mmol/L (3.3-5.1); Sodium 147 mmol/L (135-145); Total Protein 7.6 g/dL (6.5-8.0)
[2025-02-19 10:28] LABS: Troponin-I High Sensitivity 12.6 ng/L (<3.5-35.0)
[2025-02-19] MEDS: Piperacillin Sodium/Tazobactam 4.5 GM in 0.9 % Sodium Chloride 100 ML IV (10:30)
--- NOTE | 2025-02-19 10:36 | PC.NURSE ---
pt comes in via EMS from [facility] reporting abd pain with N/V x1 day, no BM for two days. Abd is firm and distended, pt reports this started yesterday. He reports a hx of 2x SBO. EMS gave 4mg zofran and about 400ml NS. Pt was hypotensive upon arrival. Labs drawn, EKG done, two IV lines established and fluids infused wide open. No vomiting noted during ED stay so far. Pt has been hypotensive as low as the 70/30s. MD notified. Pt alert, oriented and conversing with staff. Hypoxic on arrival, 88% RA and placed on 2L NC
[2025-02-19 10:39] LABS: Alanine Aminotransferase 36 U/L (0-40)
[2025-02-19] MEDS: 0.9 % Sodium Chloride 1,000 ML 999 ML IV (11:10)
--- NOTE | 2025-02-19 11:12 | PC.NURSE ---
Addendum entered by Neris Amato RN 02/19/25 11:14: Patient is a 67 year old male with history of TBI, BPH, orthostatic hypotension, chronic hepatitis C, hld, epilepsy, secondary hyperparathyroidism of renal origin, GERD, schizoaffective disorder, urinary retention, osteoporosis, gait/mobility impairment, ADHD, and CKD stage 3 presented to the ED via EMS from [facility] for further evaluation of abdominal distension, decreased PO intake, generalized weakness, as well as N/V. Vomiting of brown substances. Patient was also noted to have a low blood pressure. Patient alert and oriented. monitoring and evaluation advisor maintained and stach noted. Lungs clear but diminished with poor effort due to large abdome. Abdomen firm, ascitic appearing, extremely distended with absent bowel sounds. Positive pedal pulses with no edema. Patient receiving his 4th liter of fluids due to persistent hypotension. Addendum entered by Neris Amato RN 02/19/25 11:13: CT shows: 1. Findings consistent with mid small bowel obstruction. A definite transition point is not identified. 2. Findings suggestive of cirrhosis of the liver. Original Note: Medical History Partial small bowel obstruction Schizoaffective disorder Chronic kidney disease, stage 3 Anemia Hyperlipidemia Orthostatic hypotension GERD (gastroesophageal reflux disease) Attention deficit hyperactivity disorder Neurogenic bladder Hematuria TBI (traumatic brain injury)
--- NOTE | 2025-02-19 11:24 | PC.NURSE ---
pt remained hypotensive after fluid bolus. Dr. Marques notified, order for 4th liter of NS and recheck after
--- OUTSIDE RECORDS SUMMARY | 2025-02-19 11:25 | XMS_ITS | Clinical Summary ---
Author Organization [address] [facility] Address [address] [place] [address] Phone Care Team Providers Care Mine Wirer Name Role Phone Forest Wood MD Primary Care Provider [phone] Encounters Date Type Department Care Team Description 02/02/2025 Lab Requisition [facility] [address] [place] [address] Forest Wood MD Schizoaffective disorder, unspecified ([facility] V24, [facility] V28) 01/16/2025 Lab Requisition [facility] [address] [place] [address] Forest Wood MD Chronic kidney disease, stage 4 (severe) (CMS/HCC V24, CMS/HCC V28) 01/03/2025 Lab Requisition [facility] [address] [place] [address] Forest Wood MD Schizoaffective disorder, unspecified ([facility] V24, CMS/[facility] V28) 12/04/2024 Lab Requisition [facility] [address] [place] [address] Forest Wood MD Schizoaffective disorder, unspecified (CMS/HCC V24, CMS/HCC V28) from Last 3 Months Social History Tobacco [...] 2006 Zoster Vaccines (1 of 2) 2006 Abdominal Aortic Aneurysm (AAA) Screen 08/23/2022 Depression Screening 08/23/2022 Falls Risk Assessment 08/23/2022 Hepatitis C Screening 08/23/2022 Medicare Annual Wellness Visit 08/23/2022 Social Influencers of Health Screening 08/23/2022 COVID-19 Vaccine (1 - 2023-2 5 season) 2024 Influenza Vaccine (Season Ended) 2025 Colorectal Cancer Screening: FIT-DNA (Cologuard) 01/05/2027 01/06/2024, 01/06/2024 Cholesterol Screening (Lipid Panel) 09/08/2029 09/08/2024, 07/26/2024 RSV Immunization Adult Patients (1 - 1-dose 75+ series) 2031 HIB Vaccines Aged Out No longer eligi [...] age to complete this topic Meningococcal B Vaccine Aged Out No l onger eligible based on patient's age to complete this topic RSV Immunization Patients Under 20 months Aged Out No longer eligible b ased on patient's age to complete this topic Varicella Vaccines Aged Out No longer eligible based on patient's age to complete this topic Procedures Procedure Name Priority Date/Time Associated Diagnosis Comments COMPLETE BLOOD COUNT Routine 02/02/2025 6:35 AM EDT Schizoaffective disorder, unspecified (CMS/HCC V24, CMS/HCC V28) COMPREHENSIVE METABOLIC PANEL Routine 02/02/2025 6:35 AM EDT Schizoaffective disorder, unspecified (CMS/HCC V24, CMS/HCC V28) SST - GOLD Routine 01/16/2025 6:39 AM EDT Chronic kidney disease, stage 4 (severe) (CMS/HCC V24, CMS/HCC V28) PARATHYROID HORMONE INTACT Routine 01/16/2025 6:39 AM EDT Chronic kidney disease, stage 4 (severe) (CMS/HCC V24, CMS/HCC V28) VITAMIN D 25 HYDROXY Routine 01/16/2025 6:39 AM EDT Chronic kidney disease, stage 4 (severe) (CMS/HCC V24, CMS/HCC V28) FERRITIN Routine 01/16/2025 6:39 AM EDT Chronic kidney disease, stage 4 (severe) (CMS/HCC V24, CMS/HCC V28) COMPLETE BLOOD COUNT Routine 01/16/2025 6:39 AM EDT Chronic kidney disease, stage 4 (severe) (CMS/HCC V24, CMS/HCC V28) IRON AND TIBC Routine 01/16/2025 6:39 AM EDT Chronic kidney disease, stage 4 (severe) (CMS/HCC V24, CMS/HCC V28) RENAL FUNCTION PANEL Routine 01/16/2025 6:39 AM EDT Chronic kidney disease, stage 4 (severe) (CMS/HCC V24, CMS/HCC V28) COMPLETE BLOOD COUNT Routine 01/03/2025 6:35 AM EDT Schizoaffective disorder, unspecified (CMS/HCC V24, CMS/HCC V28) PHOSPHORUS Routine 12/04/2024 6:59 AM EDT Schizoaffective disorder, unspecified (CMS/HCC) COMPLETE BLOOD COUNT Routine 12/04/2024 6:59 AM EDT Schizoaffective disorder, unspecified (CMS/HCC) LIPID PANEL WITH REFLEX TO DIRECT LDL Routine 09/08/2024 9:14 AM EST Schizoaffective disorder, unspecified (CMS/HCC) from Last 3 Months or Most Recently Relevant to Health Maintenance Results * (ABNORMAL) Complete blood count (02/02/2025 6:35 AM EDT) Only the most recent of4 resultswithin the time period is included. WBC 14.8(H) 4.8 - 10.8 K/mcL LAB HEMETOLOGY METHOD 02/02/2025 8:28 AM [facility] RBC 4.50 4.50 - 5.50 M/mcL LAB HEMETOLOGY METHOD 02/02/2025 8:28 AM [facility] Hemoglobin 12.0(L) 13.5 - 17.5 g/dL LAB HEMETOLOGY METHOD 02/02/2025 8:28 AM [facility] Hematocrit 39.9(L) 42.0 - 54.0 % LAB HEMETOLOGY METHOD 02/02/2025 8:28 AM [facility] MCV 89.5 79.0 - 98.0 FL LAB HEMETOLOGY METHOD 02/02/2025 8:28 AM [facility] MCH 26.9(L) 27.0 - 32.0 pcg LAB HEMETOLOGY METHOD 02/02/2025 8:28 AM [facility] MCHC 30.1(L) 32.0 - 37.0 g/dL LAB HEMETOLOGY METHOD 02/02/2025 8:28 AM [facility] RDW 13.7 11.0 - 15.0 % LAB HEMETOLOGY METHOD 02/02/2025 8:28 AM [facility] Platelets 278 130 - 400 K/mcL LAB HEMETOLOGY METHOD 02/02/2025 8:28 AM [facility] MPV 10.1 7.0 - 11.0 FL LAB HEMETOLOGY METHOD 02/02/2025 8:28 AM [facility] NRBC 0.0 <1.0 % LAB HEMETOLOGY METHOD 02/02/2025 8:28 AM T [facility] NRBC Absolute 0.00 <0.10 K/mcL LAB HEMETOLOGY METHOD 02/02/2025 8:28 AM [facility] Blood Venous blood specimen / Unknown 02/02/2025 6:35 AM EDT 02/02/2025 8:11 AM EDT us Forest Wood MD LAB BLOOD ORDERABLES Final Resul t [facility] [address] [place] [address], * (ABNORMAL) Comprehensive metabolic panel (02/02/2025 6:35 AM EDT) Sodium 143 133 - 145 mmol/L LAB CHEMISTRY METHOD 02/02/2025 9:04 AM [facility] Potassium 4.7 3.5 - 5.5 mmol/L LAB CHEMISTRY METHOD 02/02/2025 9:04 AM [facility] Chloride 109 96 - 110 mmol/L LAB CHEMISTRY METHOD 02/02/2025 9:04 AM [facility] CO2 26 21 - 32 mmol/L LAB CHEMISTRY METHOD 02/02/2025 9:04 AM [facility] Anion Gap 8 3 - 11 LAB CHEMISTRY METHOD 02/02/2025 9:04 AM [facility] Glucose 76 70 - 100 mg/dL LAB CHEMISTRY METHOD 02/02/2025 9:04 AM [facility] BUN 41(H) 5 - 25 mg/dL LAB CHEMISTRY METHOD 02/02/2025 9:04 AM [facility] Creatinine 2.51(H) 0.70 - 1.30 mg/dL LAB CHEMISTRY METHOD 02/02/2025 9:04 AM [facility] eGFR 27(L) >=60 mL/min/1. 73m2 LAB CHEMISTRY METHOD 02/02/2025 9:04 AM [facility] Comment:Calculation based on the Chronic Kidney Disease Epidemiology Collaboration (CKD-EPI) equation refit without adjustment for race. BUN/Creatinine Ratio 16.3 LAB CHEMISTRY METHOD 02/02/2025 9:04 AM [facility] Calcium 9.2 8.5 - 10.5 mg/dL LAB CHEMISTRY METHOD 02/02/2025 9:04 AM [facility] AST (SGOT) 29 10 - 42 unit/L LAB CHEMISTRY METHOD 02/02/2025 9:04 AM [facility] ALT (SGPT) 39 10 - 60 unit/L LAB CHEMISTRY METHOD 02/02/2025 9:04 AM [facility] Alkaline Phosphatase 98 42 - 121 unit/L LAB CHEMISTRY METHOD 02/02/2025 9:04 AM [facility] Total Protein 7.0 6.0 - 8.0 g/dL LAB CHEMISTRY METHOD 02/02/2025 9:04 AM [facility] Albumin 3.2 3.2 - 5.0 g/dL LAB CHEMISTRY METHOD 02/02/2025 9:04 AM [facility] Total Bilirubin 0.3 0.0 - 1.4 mg/dL LAB CHEMISTRY METHOD 02/02/2025 9:04 AM [facility] Blood Venous blood specimen / Unknown 02/02/2025 6:35 AM EDT 02/02/2025 8:11 AM EDT us Forest Wood MD LAB BLOOD ORDERABLES Final Resul t [facility] [address] [place] [address], * SST tube (01/16/2025 6:39 AM EDT) [facility] Extra Tube Hold for add-ons. 01/16/2025 10:01 AM EDT [facility] Comment:Auto resulted. Blood Venous blood specimen / Unknown 01/16/2025 6:39 AM EDT 01/16/2025 8:02 AM EDT us Forest Wood MD LAB BLOOD ORDERABLES Final Resul t Performing Organization Address [facility] de Phone Number [facility] [address] [place] [address], * Iron and TIBC (01/16/2025 6:39 AM EDT) [facility] Iron 77 50 - 160 mcg/dL LAB CHEMISTRY METHOD 01/16/2025 8:32 AM EDT [facility] TIBC 326 250 - 450 mcg/dL LAB CHEMISTRY METHOD 01/16/2025 8:32 AM EDT [facility] Iron Saturation 24 20 - 50 % LAB CHEMISTRY METHOD 01/16/2025 8:32 AM EDT [facility] Blood Venous blood specimen / Unknown 01/16/2025 6:39 AM EDT 01/16/2025 8:02 AM EDT us Forest Wood MD LAB BLOOD ORDERABLES Final Resul t Performing Organization Address [facility]/ZIP Co de Phone Number [facility] [address] [place] [address], [place] [phone] * Vitamin D 25 hydroxy (01/16/2025 6:39 AM EDT) [facility] Vit D, 25-Hydroxy 51.5 30.0 - 80.0 ng/mL LAB CHEMISTRY METHOD 01/16/2025 10:55 AM EDT [facility] Blood Venous blood specimen / Unknown 01/16/2025 6:39 AM EDT 01/16/2025 8:02 AM EDT us Forest Wood MD LAB BLOOD ORDERABLES Final Resul t Performing Organization Address [facility] Co de Phone Number [facility] [address] [place] [address], [place] [phone] * (ABNORMAL) Parathyroid hormone intact (01/16/2025 6:39 AM EDT) Pathologist [facility] PTH 101.9(H) 18.5 - 88.0 pcg/mL LAB CHEMISTRY METHOD 01/16/2025 10:56 AM EDT [facility] Blood Venous blood specimen / Unknown 01/16/2025 6:39 AM EDT 01/16/2025 8:02 AM EDT us Forest Wood MD LAB BLOOD ORDERABLES Final Resul t Performing Organization Address [facility] de Phone Number [facility] [address] [place] [address], [place] [phone] * (ABNORMAL) Ferritin (01/16/2025 6:39 AM EDT) Pathologist [facility] Ferritin 1,249(H) 26 - 388 ng/mL LAB CHEMISTRY METHOD 01/16/2025 8:55 AM EDT [facility] Comment:Results verified by repeat testing Blood Venous blood specimen / Unknown 01/16/2025 6:39 AM EDT 01/16/2025 8:02 AM EDT us Forest Wood MD LAB BLOOD ORDERABLES Final Resul t Performing Organization Address [facility] Co de Phone Number [facility] [address] [place] [address], [place] [phone] * (ABNORMAL) Renal function panel (01/16/2025 6:39 AM EDT) Sodium 139 133 - 145 mmol/L LAB CHEMISTRY METHOD 01/16/2025 8:32 AM [facility] Potassium 4.8 3.5 - 5.5 mmol/L LAB CHEMISTRY METHOD 01/16/2025 8:32 AM [facility] Chloride 106 96 - 110 mmol/L LAB CHEMISTRY METHOD 01/16/2025 8:32 AM [facility] CO2 28 21 - 32 mmol/L LAB CHEMISTRY METHOD 01/16/2025 8:32 AM [facility] Anion Gap 5 3 - 11 LAB CHEMISTRY METHOD 01/16/2025 8:32 AM [facility] Glucose 84 70 - 100 mg/dL LAB CHEMISTRY METHOD 01/16/2025 8:32 AM [facility] BUN 41(H) 5 - 25 mg/dL LAB CHEMISTRY METHOD 01/16/2025 8:32 AM [facility] Creatinine 2.79(H) 0.70 - 1.30 mg/dL LAB CHEMISTRY METHOD 01/16/2025 8:32 AM [facility] eGFR 24(L) >=60 mL/min/1. 73m2 LAB CHEMISTRY METHOD 01/16/2025 8:32 AM [facility] Comment:Calculation based on the??Chronic Kidney Disease Epidemiology Collaboration (CKD-EPI) equation refit??without adjustment for race. BUN/Creatinine Ratio 14.7 LAB CHEMISTRY METHOD 01/16/2025 8:32 AM [facility] Albumin 3.2 3.2 - 5.0 g/dL LAB CHEMISTRY METHOD 01/16/2025 8:32 AM [facility] Calcium 9.5 8.5 - 10.5 mg/dL LAB CHEMISTRY METHOD 01/16/2025 8:32 AM [facility] Phosphorus 4.0 2.5 - 4.5 mg/dL LAB CHEMISTRY METHOD 01/16/2025 8:32 AM EDT [facility] Blood Venous blood specimen / Unknown 01/16/2025 6:39 AM EDT 01/16/2025 8:02 AM EDT us Forest Wood MD LAB BLOOD ORDERABLES Final Resul t Performing Organization Address [facility]/ZIP Co de Phone Number [facility] [address] [place] [address], [place] [phone] * Phosphorus (12/04/2024 6:59 AM EDT) Phosphorus 4.2 2.5 - 4.5 mg/dL LAB CHEMISTRY METHOD 12/04/2024 8:54 AM EDT [facility] Blood Venous blood specimen / Unknown 12/04/2024 6:59 AM EDT 12/04/2024 7:55 AM EDT us Forest Wood MD LAB BLOOD ORDERABLES Final Resul t Performing Organization Address [facility]/ZIP Co de Phone Number [facility] [address] [place] [address], [place] [phone] * (ABNORMAL) Lipid panel with reflex to direct LDL (09/08/2024 9:14 AM EST) Cholesterol 150 0 - 200 mg/dL LAB CHEMISTRY METHOD 09/08/2024 1:55 PM EST [facility] Triglycerides 257(H) 0 - 150 mg/dL LAB CHEMISTRY METHOD 09/08/2024 1:55 PM EST [facility] HDL 41 >=40 mg/dL LAB CHEMISTRY METHOD 09/08/2024 1:55 PM EST [facility] LDL Calculated 58 0 - 100 mg/dL LAB CHEMISTRY METHOD 09/08/2024 1:55 PM EST [facility] VLDL Cholesterol Yonathan 51.4 mg/dL LAB CHEMISTRY METHOD 09/08/2024 1:55 PM EST [facility] Non HDL Chol. (LDL+VLDL) 109 <145 mg/dL LAB CHEMISTRY METHOD 09/08/2024 1:55 PM EST [facility] Chol/HDL Ratio 3.7 0.0 - 4.4 LAB CHEMISTRY METHOD 09/08/2024 1:55 PM EST [facility] Blood Venous blood specimen / Unknown 09/08/2024 9:14 AM EST 09/08/2024 10:17 AM EST us Forest Wood MD LAB BLOOD ORDERABLES Final Resul t [facility] [address] [place] [address], from Last 3 Months or Most Recently Relevant to Health Maintenance Insurance MEDICARE Care Teams Mine Wirer Relationship Specialty Start Date End Date Forest Wood MD [address] [place] [address] Dr [address] [place], [place] PCP - General Internal Medicine 11/07/24
[2025-02-19 11:29] LABS: Reflex Lactate? Lactic Acid Added
[2025-02-19] MEDS: Albumin Human 25 % 50 ML 100 ML IV ×2 (11:48→12:05)
--- NOTE | 2025-02-19 11:53 | PC.NURSE ---
Patient remains hypotensive post 4 liters of fluids. Albumin initiated as ordered. Pending results.
--- NOTE | 2025-02-19 12:08 | P.CONGS_ITS ---
History of Present Illness Consult details Consult date: 02/19/25 Reason for consult: abdominal pain Requesting physician: Germania Marques Narrative: 69-year-old male patient, resident of [facility], with a prior history of TBI, BPH, orthostatic hypotension, chronic hepatitis C on epclusa, hld, epilepsy, secondary hyperparathyroidism of renal origin, GERD, schizoaffective disorder, urinary retention, osteoporosis, gait/mobility impairment, ADHD, and CKD stage 3, and a previous surgical history of an open cholecystectomy many years ago now presenting with complaints of abdominal pain, distention, nausea and vomiting of feculent material. The symptoms started yesterday and persisted today. He has a prior history of small-bowel obstruction on 2 other occasions the most recent in 2022 which resolved with nonoperative measures. He is uncertain of any sick contacts or eating unusual foods. He presented to the emergency department for further evaluation and was found to have marked distention of his abdomen. Initial workup revealed a normal WBC of 6.9. He was hypotensive and tachycardic and given several L of fluid in the emergency department. Lactate level was also noted to be elevated at 3.7. CT abdomen and pelvis revealed a dilated stomach and proximal small bowel. Distal bowel is decompressed. There is stool and gas noted in the colon. No clear transition point is identified. Review of Systems 2 Review of Systems: Yes Unobtainable due to mental condition PMFSH Past Medical History Medical History Partial small bowel obstruction Schizoaffective disorder Chronic kidney disease, stage 3 Anemia Hyperlipidemia Orthostatic hypotension GERD (gastroesophageal reflux disease) Attention deficit hyperactivity disorder Neurogenic bladder Hematuria TBI (traumatic brain injury) Surgical History Surgical History History of surgery Social History Social History Household Members: Other Housing: Assisted Living Facility Do you presently have visiting nurse or other home services: Yes Alcohol intake: never Patient Tobacco Use Status: Former Tobacco user Tobacco use type: Cigarette and Cigar Smoked in Last 30 Days: No Use of substances other than those prescribed or required for medical reasons: No Advance Directives: Yes Advance Directives on File: Yes Advance Directives Date on File: 07/10/21 service: No Current occupational status: disabled Meds Allergies Allergy/AdvReac Type Severity Reaction Status Date / Time NSAIDS (Non-Steroidal Allergy Unknown UNKNOWN Verified 02/19/25 09:00 Anti-Inflamma [NSAIDS (NON-STEROIDAL ANTI-INFLAMMA] Active Medications: Current Medications Sodium Chloride (Ns) 1,000 mls @ 999 mls/hr IV .Q1H1M [facility] Stop: 02/19/25 12:30 Last Infusion: 02/19/25 11:34 Dose: Infused Albumin Human (Kedbumin 25 %) 50 mls @ 100 mls/hr IV Q30M [facility] Stop: 02/19/25 12:44 Last Admin: 02/19/25 12:05 Dose: 100 mls/hr Home Medications ?Medication ?Instructions ?Recorded ?Confirmed ?Last Taken ?Type albuterol sulfate 90 mcg/actuation 2 puff inhalation Q4H PRN Wheezing 07/10/21 05/23/24 Unknown History aerosol inhaler ascorbic acid (vitamin C) 500 mg 500 mg PO DAILY 07/10/21 05/23/24 10/04/22 History tablet (Vitamin C) calcitriol 0.25 mcg capsule 0.25 mcg PO TUFR 07/10/21 05/23/24 10/02/22 History clomipramine 50 mg capsule 100 mg PO BEDTIME ANXIETY 07/10/21 05/23/24 10/04/22 History docusate sodium 100 mg tablet 200 mg PO DAILY 07/10/21 05/23/24 10/04/22 History escitalopram oxalate 10 mg tablet 10 mg PO DAILY 07/10/21 05/23/24 10/04/22 History fenofibrate nanocrystallized 145 145 mg PO DAILY 07/10/21 05/23/24 10/04/22 History mg tablet ferrous sulfate 325 mg (65 mg 325 mg PO DAILY 07/10/21 05/23/24 10/04/22 History iron) tablet fludrocortisone 0.1 mg tablet 0.2 mg PO DAILY 07/10/21 05/23/24 10/04/22 History gabapentin 300 mg capsule 300 mg PO TID 07/10/21 05/23/24 10/04/22 History guaifenesin 100 mg/5 mL oral liquid 200 mg PO Q4H PRN Cough 07/10/21 05/23/24 Unknown History loratadine 10 mg tablet 10 mg PO DAILY PRN Allergy Symptoms 07/10/21 05/23/24 Unknown History milk thistle 240 mg PO TID 07/10/21 05/23/24 10/04/22 History multivitamin 1 tab PO DAILY 07/10/21 05/23/24 10/04/22 History pramipexole 1 mg tablet 1 mg PO DAILY 07/10/21 05/23/24 10/04/22 History sennosides 8.6 mg tablet (senna) 8.6 mg PO DAILY PRN Constipation 07/10/21 05/23/24 Unknown History bisacodyl 10 mg rectal suppository 10 mg UT DAILY PRN Constipation 05/13/22 05/23/24 Unknown History hydrocortisone 10 mg tablet 10 mg PO TID 05/13/22 05/23/24 10/04/22 History clozapine 200 mg tablet 200 mg PO BEDTIME 06/02/22 05/23/24 10/04/22 History sofosbuvir 400 mg-velpatasvir 100 1 tab PO DAILY 10/05/22 05/23/24 10/04/22 History mg tablet (Epclusa) Physical Exam 2 Vital Signs: Vital Signs: Last Vital Signs Temp 98.2 F 02/19/25 11:55 Pulse 109 H 02/19/25 11:55 Resp 24 H 02/19/25 11:55 BP 81/51 L 02/19/25 11:55 Pulse Ox 92 02/19/25 11:55 O2 Del Method Nasal Cannula 02/19/25 11:55 O2 Flow Rate 2 02/19/25 11:55 BMI result Body Mass Index 37.4 Const: General: no acute distress Nutritional Appearance: well nourished HEENT: Head: Yes normocephalic Ears: hearing grossly normal bilaterally Resp: Effort & Inspection: normal respiratory effort GI: Other: Protuberant abdomen, tympany to percussion, mild tenderness to deep palpation without rebound or guarding. Large Niki incision without palpable hernia. Rectal Exam - Male: Yes deferred Skin: Other: Warm, dry Neuro: Other: Awake and alert, Extrem: Other: Warm and dry, brisk capillary refill Results Labs 02/19/25 09:23 02/19/25 09:23 Labs: Abnormal lab results 02/19/25 02/19/25 Range/Units 09:23 09:24 Hgb 13.0 L (14.0-18.0) g/dl Hct 40.9 L (42.0-52.0) % Neut % (Auto) 75.3 H (45-73) % Lymph % (Auto) 13.2 L (20-40) % Lymph # (Auto) 0.9 L (1.2-4.9) X10*3/uL PT 12.8 H (10.9-12.4) SEC Sodium 147 H (135-145) mmol/L BUN 65 H (9-16) mg/dL Creatinine 3.59 H (0.5-1.4) mg/dL Random Glucose 144 H (60-115) mg/dL Lactic Acid 3.7 H* (0.5-2.0) mmol/L Short CBC 02/19/25 Range/Units 09:23 WBC 6.9 (4.8-10.8) X10*3/uL Hgb 13.0 L (14.0-18.0) g/dl Hct 40.9 L (42.0-52.0) % Plt Count 301 D (160-400) X10*3/uL BMP 02/19/25 09:23 Sodium 147 H Potassium 4.8 Chloride 107 Carbon Dioxide 25 BUN 65 H Creatinine 3.59 H Calcium 10.0 D Liver Function 02/19/25 Range/Units 09:23 Total Bilirubin 0.8 (0.0-1.0) mg/dL Direct Bilirubin 0.4 (0.0-0.5) mg/dL AST 35 (5-37) U/L ALT 36 (0-40) U/L Alkaline Phosphatase 78 (39-117) U/L Albumin 3.9 (3.5-5.0) g/dL All other labs normal. Imaging Abdomen CT scan report/results: image reviewed CT scan - pelvis: image reviewed Assessment and Plan (1) Partial small bowel obstruction: Status: Acute Plan 69-year-old male patient with a prior history of small-bowel obstructions and a prior surgical history of a open cholecystectomy, presenting again with nausea, vomiting, abdominal distention, abdominal pain found to have hypotension, tachycardia, elevated lactate level. CT findings are consistent with a partial small-bowel obstruction with dilated stomach and proximal small bowel with decompressed distal small bowel. No definite transition point is identified by Radiology. Recommend NG tube decompression, bowel rest, craven catheter. Prior episodes of small-bowel obstruction did respond to nonoperative management. Patient does not appear septic and there was no evidence of abscess or fluid collection by CT. Suggest hospitalist admission with surgical consultation. Hospitalist service has declined admission therefore he will be admitted to the surgical service. His current blood pressure is 155/55 with a pulse rate of 113. Procedures Date of Service Date of Service: 02/19/25
[2025-02-19] MEDS: Lidocaine HCl 2 % Urojet 10 ML JEL.PF.APP TOPICAL (12:13)
[2025-02-19 12:34] LABS: ~Lactic Acid-LAB USE ONLY 2.4 mmol/L (0.5-2.0)
--- NOTE | 2025-02-19 12:47 | PC.NURSE ---
18 fr NGT inserted by Dr. Marques without difficutly. Drained 1150cc of fecal material.
[2025-02-19] MEDS: 0.9 % Sodium Chloride 500 ML 999 ML IV (13:44)
[2025-02-19 14:07] LABS: Reflex Lactate? 2 Y
--- NOTE | 2025-02-19 14:46 | PC.NURSE ---
Hospitalist down to evaluate for a possible admission.
--- NOTE | 2025-02-19 15:49 | HO.PM.IMCN ---
History of Present Illness Data of Consult Service Date: 02/19/25 Primary Care Provider: Forest Wood DO HPI 69 year old male with history of TBI, BPH, orthostatic hypotension, chronic hepatitis C treated with epclusa, hld, epilepsy, secondary hyperparathyroidism of renal origin, GERD, schizoaffective disorder, urinary retention, osteoporosis, gait/mobility impairment, ADHD, and CKD stage 3 presented to the ED via EMS from [facility] for further evaluation of abdominal distension, no BM for 2 days, vomiting brown liquid thought to be fecal material. In the ED, noted to be hypotensive with systolic BP as low as 72, he has receiving 4 liters of IVF and albumin and BP is now better. CT shows mid small bowel obstruction with no definate transition point. He has been given 4 liters of IVF and Albumin with improvement in the BP now. An NGT has thus far drained over 1.7 L of brown liquis likely fecal material. Review of Systems Review of Systems: Yes Unobtainable due to mental status [facility] Medical History Partial small bowel obstruction Schizoaffective disorder Chronic kidney disease, stage 3 Anemia Hyperlipidemia Orthostatic hypotension GERD (gastroesophageal reflux disease) Attention deficit hyperactivity disorder Neurogenic bladder Hematuria TBI (traumatic brain injury) Surgical History History of surgery Social History Household Members: Other Housing: Retirement Do you presently have visiting nurse or other home services: Yes Alcohol intake: never Patient Tobacco Use Status: Former Tobacco user Tobacco use type: Cigarette and Cigar Advance Directives Date on File: 07/10/21 service: No Current occupational status: disabled Meds Allergies Allergy/AdvReac Type Severity Reaction Status Date / Time NSAIDS (Non-Steroidal Allergy Unknown UNKNOWN Verified 02/19/25 09:00 Anti-Inflamma [NSAIDS (NON-STEROIDAL ANTI-INFLAMMA] Active Medications: Current Medications Calcium Carbonate (Calcium Carbonate 750 Mg Tab.Chew) 750 mg PO Q4H PRN PRN Reason: Heartburn Enoxaparin Sodium (Enoxaparin Sodium 30 Mg/0.3 Ml Syringe) 30 mg SUBCUT Q24H BRUCE Hydromorphone HCl (Hydromorphone Hcl 0.5 Mg/0.5 Ml Syringe) 0.5 mg IVPUSH Q3H PRN; Protocol PRN Reason: Pain, Severe (Pain Scale 7-10) Acetaminophen (Ofirmev) 1,000 mg in 100 mls @ 400 mls/hr IV Q6H PRN PRN Reason: Pain, Mild (Pain Scale 1-3) Dextrose/Lactated Ringer's (D5lr) 1,000 mls @ 125 mls/hr IVCONT .Q8H BRUCE Magnesium Hydroxide (Milk Of Magnesia 30 Ml Oral.Susp) 30 ml PO DAILY PRN PRN Reason: Constipation Melatonin (Melatonin 3 Mg Tablet) 6 mg PO BEDTIME PRN PRN Reason: Insomnia Ondansetron HCl (Ondansetron Hcl 4 Mg/2 Ml Vial) 4 mg IVPUSH QID PRN PRN Reason: Nausea Sodium Chloride (0.9 % Sodium Chloride Flush 3 Ml Syringe) 3 ml IVFLUSH QSHIFT BRUCE Sodium Chloride (0.9 % Sodium Chloride Flush 3 Ml Syringe) 3 ml IVFLUSH QSHIFT BRUCE Home Medications ?Medication ?Instructions ?Recorded ?Confirmed ?Last Taken ?Type albuterol sulfate 90 mcg/actuation 2 puff inhalation Q4H PRN Wheezing 07/10/21 02/19/25 Unknown History aerosol inhaler ascorbic acid (vitamin C) 500 mg 500 mg PO DAILY 07/10/21 02/19/25 10/04/22 History tablet (Vitamin C) calcitriol 0.25 mcg capsule 0.25 mcg PO TUFR 07/10/21 02/19/25 10/02/22 History clomipramine 50 mg capsule 100 mg PO BEDTIME ANXIETY 07/10/21 02/19/25 10/04/22 History docusate sodium 100 mg tablet 100 mg PO BID 07/10/21 02/19/25 10/04/22 History fenofibrate nanocrystallized 145 145 mg PO DAILY 07/10/21 02/19/25 10/04/22 History mg tablet ferrous sulfate 325 mg (65 mg 325 mg PO DAILY 07/10/21 02/19/25 10/04/22 History iron) tablet fludrocortisone 0.1 mg tablet 0.2 mg PO DAILY 07/10/21 02/19/25 10/04/22 History guaifenesin 100 mg/5 mL oral liquid 200 mg PO Q4H PRN Cough 07/10/21 02/19/25 Unknown History loratadine 10 mg tablet 10 mg PO DAILY PRN Allergy Symptoms 07/10/21 02/19/25 Unknown History multivitamin 1 tab PO DAILY 07/10/21 02/19/25 10/04/22 History sennosides 8.6 mg tablet (senna) 8.6 mg PO DAILY PRN Constipation 07/10/21 02/19/25 Unknown History bisacodyl 10 mg rectal suppository 10 mg IN DAILY PRN Constipation 05/13/22 02/19/25 Unknown History hydrocortisone 10 mg tablet 10 mg PO TID 05/13/22 02/19/25 10/04/22 History clozapine 200 mg tablet 200 mg PO BEDTIME 06/02/22 02/20/25 02/18/25 History acetaminophen 325 mg tablet 650 mg PO Q6H PRN Fever Or Pain 02/19/25 02/19/25 Unknown History alfuzosin 10 mg tablet,extended 10 mg PO DAILY 02/19/25 02/19/25 Unknown History release 24 hr aluminum-mag hydroxide-simethicone 30 ml PO Q4H PRN GI Upset 02/19/25 02/19/25 Unknown History 200 mg-200 mg-20 mg/5 mL oral susp amlodipine 5 mg tablet 5 mg PO DAILY 02/19/25 02/19/25 Unknown History carboxymethylcellulose sodium 1 % 1 drp ophthalmic (eye) BID 02/19/25 02/19/25 Unknown History eye drops (Artificial Tears (carboxymethylcellulose)) clozapine 100 mg tablet 100 mg PO DAILY 02/19/25 02/20/25 02/18/25 History ergocalciferol (vitamin D2) 1,250 1,250 mcg PO FR 02/19/25 02/19/25 Unknown History mcg (50,000 unit) capsule gabapentin 100 mg capsule 200 mg PO TID 02/19/25 02/19/25 Unknown History menthol 5 % topical patch (Bengay 1 patch topical Q8H PRN muscle ache 02/19/25 02/19/25 Unknown History Ultra Strength (menthol)) naloxone 4 mg/actuation nasal 4 mg intranasal Q3M PRN overdose 02/19/25 02/19/25 Unknown History spray (Narcan) omeprazole 40 mg capsule,delayed 40 mg PO BID@0630,1630 02/19/25 02/19/25 Unknown History release sennosides 8.6 mg tablet (senna) 8.6 mg PO BID Constipation 02/19/25 02/19/25 Unknown History tramadol 50 mg tablet 50 mg PO TID 02/19/25 02/19/25 Unknown History Physical Exam Vital Signs and Narrative: Vital Signs: Last Vital Signs Temp 98.7 F 02/19/25 14:00 Pulse 113 H 02/19/25 14:00 Resp 20 02/19/25 14:00 BP 115/55 L 02/19/25 14:00 Pulse Ox 95 02/19/25 14:00 O2 Del Method Nasal Cannula 02/19/25 14:00 O2 Flow Rate 2 02/19/25 14:00 BMI result Body Mass Index 37.4 Results Labs 02/20/25 05:29 02/20/25 05:29 Labs: Laboratory Results - last 24 hr 02/19/25 02/19/25 02/19/25 09:23 09:24 09:48 MCV 86.3 MCH 27.4 MCHC 31.8 RDW 13.9 Plt Count 301 D MPV 9.5 Immature Gran % (Auto) 0.4 Neut % (Auto) 75.3 H Lymph % (Auto) 13.2 L [place] % (Auto) 10.7 Eos % (Auto) 0.3 Baso % (Auto) 0.1 Lymph # (Auto) 0.9 L [place] # (Auto) 0.7 Eos # (Auto) 0.0 Baso # (Auto) 0.0 Abs Immat Gran (auto) 0.03 Absolute Neuts (auto) 5.2 Absolute Nucleated RBC 0.000 Nucleated RBC % (auto) 0.0 PT 12.8 H INR 1.1 Anion Gap 20 Estim Creat Clear Calc 21.6 Estimated GFR 17 Random Glucose 144 H Lactic Acid 3.7 H* Lactic Acid F/U @ 2Hr Calcium 10.0 D Total Bilirubin 0.8 Direct Bilirubin 0.4 AST 35 ALT 36 Alkaline Phosphatase 78 Troponin I High Sens 12.6 Total Protein 7.6 Albumin 3.9 Stool Occult Blood NEGATIVE Influenza Type A (PCR) NEGATIVE Influenza Type B (PCR) NEGATIVE RSV RNA Qual (PCR) NEGATIVE SARS-CoV-2 RNA (RT-PCR) NEGATIVE 02/19/25 12:04 MCV MCH MCHC RDW Plt Count MPV Immature Gran % (Auto) Neut % (Auto) Lymph % (Auto) [place] % (Auto) Eos % (Auto) Baso % (Auto) Lymph # (Auto) [place] # (Auto) Eos # (Auto) Baso # (Auto) Abs Immat Gran (auto) Absolute Neuts (auto) Absolute Nucleated RBC Nucleated RBC % (auto) PT INR Anion Gap Estim Creat Clear Calc Estimated GFR Random Glucose Lactic Acid Lactic Acid F/U @ 2Hr 2.4 H* Calcium Total Bilirubin Direct Bilirubin AST ALT Alkaline Phosphatase Troponin I High Sens Total Protein Albumin Stool Occult Blood Influenza Type A (PCR) Influenza Type B (PCR) RSV RNA Qual (PCR) SARS-CoV-2 RNA (RT-PCR) Imaging Radiologist's Impressions: Impressions Abdomen/Pelvis CT 02/19/25 09:55 IMPRESSION: 1. Findings consistent with mid small bowel obstruction. A definite transition point is not identified. 2. Findings suggestive of cirrhosis of the liver. 3. Stable 1.8 cm hyperdense lesion at the upper pole of the right kidney which could represent a hyperdense cyst. Correlation with ultrasound is recommended. Electronically signed by: Rolo Cox MD 02/19/2025 10:[address] 02/19/25 09:55 IMPRESSION: 1. Findings consistent with mid small bowel obstruction. A definite transition point is not identified. 2. Findings suggestive of cirrhosis of the liver. 3. Stable 1.8 cm hyperdense lesion at the upper pole of the right kidney which could represent a hyperdense cyst. Correlation with ultrasound is recommended. Electronically signed by: Rolo Cox MD 02/19/2025 10:54 AM EDT Chest X-Ray 02/19/25 12:34 IMPRESSION: 1. NG tube positioned with the tip in the region of the duodenal bulb. For optimal positioning, this could be retracted slightly. 2. Lungs demonstrating patchy peribronchial thickening, with subsegmental linear opacities in the retrocardiac region. This could represent atelectasis or pneumonia in the appropriate clinical setting. 3. There is no effusion or pneumothorax. Electronically signed by: Vaibhav Mejias MD 02/19/2025 01:09 PM EDT Assessment and Plan (1) Complete small bowel obstruction: Status: Acute (2) JOSE L (acute kidney injury): Status: Acute Plan 69 year old male with history of TBI, BPH, orthostatic hypotension, chronic hepatitis C on epclusa, hld, epilepsy, secondary hyperparathyroidism of renal origin, GERD, schizoaffective disorder, urinary retention, osteoporosis, gait/mobility impairment, ADHD, and CKD stage 3 here with acute small deann obstruction associated with Hypotension Acute Partial SBO, has NGT Surgery following NPO JOSE L on CKD IV, Creatine is above baseline, likely from hypotension leading to renal hypoperfusion need to be on IVF, will consult Nephrology hypErnatremia, mild, monitor Hypotension, related to SBP but has history of adrenal insuficiency IV steroid, restart PO when able to eat Schizoaffective disorder -Continue home meds -ANC levels normal. Continue clozaril. Will continue monitoring ANC levels -[facility] contacted to complete Patient Status Forms per [facility] for ongoing clozapine administration DVT prophylaxis- heparin Full code reason for continued hospitalization: monitoring tolerance of solids, hypernatremia without ivf
[2025-02-19 15:51] LABS: ~Lactic Acid-LAB USE ONLY 3.4 mmol/L (0.5-2.0)
[2025-02-19] MEDS: Enoxaparin Sodium 30 MG/0.3 ML SYRINGE SUBCUT (15:55)
[2025-02-19] MEDS: Dextrose 5 % and Lactated Ring 1,000 ML 125 ML IVCONT ×2 (15:56→23:32)
[2025-02-19] MEDS: 0.9 % Sodium Chloride Flush 3 ML SYRINGE IVFLUSH ×2 (16:02→20:06)
[2025-02-19] MEDS: dexAMETHasone sod phosphate 4 MG/ML VIAL 8 MG IVPUSH (17:17)
--- NOTE | 2025-02-19 17:43 | PHA.MEDREC ---
Addendum entered by Catrachita Wisdom RPh 02/19/25 18:54: [facility] reviewed Original Note: Pharmacy Consult ? Medication Reconciliation Pharmacy has completed the medication reconciliation. Utilized med list from [facility].
--- NOTE | 2025-02-19 18:15 | PC.NURSE ---
Reached out to surgeon about NG tube suction settings due to vague order. MD stated that the suction should be set at low intermittent suction. Notified MD that order says continuous.
[2025-02-19] MEDS: ondansetron HCL 4 MG/2 ML VIAL IVPUSH (20:06)
[2025-02-19 21:34] LABS: Appearance Urine Clear; Color Urine Dark Yellow; Glucose Urine UA Negative (Negative); Leukocyte Esterase Urine Trace (Negative); Nitrite Urine Negative (Negative); UMIC TRIGGER UACC YES; Urine Blood Negative (Negative); Urine Ketones Trace mg/dL (Negative); Urine Protein 100 (2+) mg/dL (Neg-Trace)
[2025-02-19 21:37] LABS: Bacteria Urine 1+ (None Seen); Hyaline Casts Urine 0-2 /LPF (0-2); RBC Urine 0-2 /HPF (0-2); UACC Culture Trigger YES
[2025-02-19] MEDS: cefTRIAXone sodium 1 GM VIAL IVPUSH (23:32)
[2025-02-20] MEDS: Melatonin 3 MG TABLET 6 MG PO ×2 (02:23→18:49)
[2025-02-20] MEDS: diazePAM 10 MG/2 ML CARTRIDGE 2.5 MG IVPUSH (02:41)
[2025-02-20 04:00] VITALS: BP 131/58; PULSE 113; RESP 20; TEMP 37; O2SAT 93
[2025-02-20 06:18] LABS: Hematocrit 34.3 % (42.0-52.0); Hemoglobin 10.5 g/dl (14.0-18.0); Mean Corpuscular HGB Conc 30.6 g/dl (31.0-36.0); Mean Corpuscular Hemoglobin 27.3 pg (27.0-33.0); Mean Corpuscular Volume 89.1 fL (80.0-98.0); Mean Platelet Volume 9.7 fL (9.4-12.4); Platelet Count 215 X10*3/uL (160-400); Red Blood Count 3.85 X10*6/uL (4.60-5.80); Red Cell Distribution Width 14.3 % (11.0-16.0)
[2025-02-20 06:19] LABS: WBC ABN SCTR FOR CBC 1; White Blood Count 8.1 X10*3/uL (4.8-10.8)
[2025-02-20 06:22] LABS: Alanine Aminotransferase 25 U/L (0-40); Albumin Level 3.7 g/dL (3.5-5.0); Alkaline Phosphatase 63 U/L (39-117); Anion Gap 16 (12-20); Aspartate Amino Transferase 34 U/L (5-37); Bilirubin Total 0.6 mg/dL (0.0-1.0); Blood Urea Nitrogen 67 mg/dL (9-16); Carbon Dioxide 21 mmol/L (22-29); Chloride 114 mmol/L (96-108); Creatinine Clr Calc Pharmacy 20.7; Estimated Glomerular Filt Rate 16; Glucose Random 145 mg/dL (60-115); Potassium 4.5 mmol/L (3.3-5.1); Sodium 146 mmol/L (135-145); Total Protein 7.1 g/dL (6.5-8.0)
--- NOTE | 2025-02-20 07:14 | PM.PNGS ---
Subjective Subjective Date of Service: 02/20/25 <Ramon Ingram PA-C - Last Filed: 02/20/25 08:18> 02/20/25 <Bryson Pascual MD - Last Filed: 02/20/25 07:59> Interval history: Patient states he is doing a little better this morning, was able to get comfortable enough to sleep. Endorses some mild pain in his abdomen. Denies nausea or vomiting. Denies passing gas, passing stool. <Ramon Ingram PA-C - Last Filed: 02/20/25 08:18> Physical Exam Vital Signs: Vital Signs: Last Vital Signs Temp 98.6 F 02/20/25 04:00 Pulse 113 H 02/20/25 04:00 Resp 20 02/20/25 04:00 BP 131/58 L 02/20/25 04:00 Pulse Ox 93 02/20/25 04:00 O2 Del Method Nasal Cannula 02/20/25 04:00 O2 Flow Rate 2 02/20/25 04:00 BMI result Body Mass Index 37.4 <Ramon Ingram PA-C - Last Filed: 02/20/25 08:18> Const: General: no acute distress <SONIA Rajan Last Filed: 02/20/25 08:18> Nutritional Appearance: obese <SONIA Rajan Last Filed: 02/20/25 08:18> Orientation/consciousness: patient oriented x3 <SONIA Rajan Last Filed: 02/20/25 08:18> Resp: Effort & Inspection: able to speak in complete sentences <SONIA Rajan Last Filed: 02/20/25 08:18> GI: Other: NG tube present 600 cc <SONIA Rajan Last Filed: 02/20/25 08:18> Inspection: Yes distended (upper abdomen) <SONIA Rajan Last Filed: 02/20/25 08:18> Palpation (GI): Soft to palpation, not firm, Tenderness to palpation present (GI) (mild), no guarding and not rigid <SONIA Rajan Last Filed: 02/20/25 08:18> Percussion: Yes tympanic to percussion <SONIA Rajan Last Filed: 02/20/25 08:18> Neuro: General: patient oriented x3 <Ramon Ingram PA-C - Last Filed: 02/20/25 08:18> Objective Data Active Medications Calcium Carbonate (Calcium Carbonate 750 Mg Tab.Chew) 750 mg PO Q4H PRN PRN Reason: Heartburn Ceftriaxone Sodium (Ceftriaxone Sodium 1 Gm Vial) 1 gm IVPUSH BEDTIME [facility] Last Admin: 02/19/25 23:32 Dose: 1 gm Documented By: OSEI Enoxaparin Sodium (Enoxaparin Sodium 30 Mg/0.3 Ml Syringe) 30 mg SUBCUT Q24H [facility] Last Admin: 02/19/25 15:55 Dose: 30 mg Documented By: SCIRPOS Hydromorphone HCl (Hydromorphone Hcl 0.5 Mg/0.5 Ml Syringe) 0.5 mg IVPUSH Q3H PRN; Protocol PRN Reason: Pain, Severe (Pain Scale 7-10) Acetaminophen (Ofirmev) 1,000 mg in 100 mls @ 400 mls/hr IV Q6H PRN PRN Reason: Pain, Mild (Pain Scale 1-3) Dextrose/Lactated Ringer's (D5lr) 1,000 mls @ 125 mls/hr IVCONT .Q8H [facility] Last Admin: 02/19/25 23:32 Dose: 125 mls/hr Documented By: OSEI Magnesium Hydroxide (Milk Of Magnesia 30 Ml Oral.Susp) 30 ml PO DAILY PRN PRN Reason: Constipation Melatonin (Melatonin 3 Mg Tablet) 6 mg PO BEDTIME PRN PRN Reason: Insomnia Last Admin: 02/20/25 02:23 Dose: 6 mg Documented By: OSEI Ondansetron HCl (Ondansetron Hcl 4 Mg/2 Ml Vial) 4 mg IVPUSH QID PRN PRN Reason: Nausea Last Admin: 02/19/25 20:06 Dose: 4 mg Documented By: OSEI Sodium Chloride (0.9 % Sodium Chloride Flush 3 Ml Syringe) 3 ml IVFLUSH QSHIFT [facility] Last Admin: 02/20/25 06:54 Dose: Not Given Documented By: CASTILLO Non-Admin Reason: IV Running <Ramon Ingram PA-C - Last Filed: 02/20/25 08:18> Labs CBC & Chem 7: 02/20/25 05:29 02/20/25 05:29 <Ramon Ingram PA-C - Last Filed: 02/20/25 08:18> Labs: Laboratory Results - last 24 hr 02/19/25 02/19/25 02/19/25 09:23 09:24 09:48 MCV 86.3 MCH 27.4 MCHC 31.8 RDW 13.9 Plt Count 301 D MPV 9.5 Immature Gran % (Auto) 0.4 Neut % (Auto) 75.3 H Lymph % (Auto) 13.2 L [place] % (Auto) 10.7 Eos % (Auto) 0.3 Baso % (Auto) 0.1 Lymph # (Auto) 0.9 L [place] # (Auto) 0.7 Eos # (Auto) 0.0 Baso # (Auto) 0.0 Abs Immat Gran (auto) 0.03 Absolute Neuts (auto) 5.2 Absolute Nucleated RBC 0.000 Nucleated RBC % (auto) 0.0 PT 12.8 H INR 1.1 Anion Gap 20 Estim Creat Clear Calc 21.6 Estimated GFR 17 Random Glucose 144 H Lactic Acid 3.7 H* Lactic Acid F/U @ 2Hr Lactic Acid F/U @ 4Hr Calcium 10.0 D Total Bilirubin 0.8 Direct Bilirubin 0.4 AST 35 ALT 36 Alkaline Phosphatase 78 Troponin I High Sens 12.6 Total Protein 7.6 Albumin 3.9 Urine Color Urine Appearance Urine pH Ur Specific [place] Urine Protein Urine Glucose (UA) Urine Ketones Urine Blood Urine Nitrite Ur Leukocyte Esterase Urine RBC Urine WBC Ur Squamous Epith Cells Urine Bacteria Hyaline Casts Stool Occult Blood NEGATIVE Influenza Type A (PCR) NEGATIVE Influenza Type B (PCR) NEGATIVE RSV RNA Qual (PCR) NEGATIVE SARS-CoV-2 RNA (RT-PCR) NEGATIVE 02/19/25 02/19/25 02/19/25 12:04 15:13 21:07 MCV MCH MCHC RDW Plt Count MPV Immature Gran % (Auto) Neut % (Auto) Lymph % (Auto) [place] % (Auto) Eos % (Auto) Baso % (Auto) Lymph # (Auto) [place] # (Auto) Eos # (Auto) Baso # (Auto) Abs Immat Gran (auto) Absolute Neuts (auto) Absolute Nucleated RBC Nucleated RBC % (auto) PT INR Anion Gap Estim Creat Clear Calc Estimated GFR Random Glucose Lactic Acid Lactic Acid F/U @ 2Hr 2.4 H* Lactic Acid F/U @ 4Hr 3.4 H* Calcium Total Bilirubin Direct Bilirubin AST ALT Alkaline Phosphatase Troponin I High Sens Total Protein Albumin Urine Color Dark Yellow Urine Appearance Clear Urine pH 6.0 Ur Specific [place] 1.020 Urine Protein 100 (2+) H Urine Glucose (UA) Negative Urine Ketones Trace Urine Blood Negative Urine Nitrite Negative Ur Leukocyte Esterase Trace H Urine RBC 0-2 Urine WBC 6-10 H Ur Squamous Epith Cells 3-5 Urine Bacteria 1+ Hyaline Casts 0-2 Stool Occult Blood Influenza Type A (PCR) Influenza Type B (PCR) RSV RNA Qual (PCR) SARS-CoV-2 RNA (RT-PCR) 02/20/25 05:29 MCV 89.1 MCH 27.3 MCHC 30.6 L RDW 14.3 Plt Count 215 D MPV 9.7 Immature Gran % (Auto) Cancelled Neut % (Auto) Cancelled Lymph % (Auto) Cancelled [place] % (Auto) Cancelled Eos % (Auto) Cancelled Baso % (Auto) Cancelled Lymph # (Auto) Cancelled [place] # (Auto) Cancelled Eos # (Auto) Cancelled Baso # (Auto) Cancelled Abs Immat Gran (auto) Cancelled Absolute Neuts (auto) Cancelled Absolute Nucleated RBC 0.000 Nucleated RBC % (auto) 0.0 PT INR Anion Gap 16 Estim Creat Clear Calc 20.7 Estimated GFR 16 Random Glucose 145 H Lactic Acid Lactic Acid F/U @ 2Hr Lactic Acid F/U @ 4Hr Calcium 9.0 D Total Bilirubin 0.6 Direct Bilirubin AST 34 ALT 25 Alkaline Phosphatase 63 Troponin I High Sens Total Protein 7.1 Albumin 3.7 Urine Color Urine Appearance Urine pH Ur Specific [place] Urine Protein Urine Glucose (UA) Urine Ketones Urine Blood Urine Nitrite Ur Leukocyte Esterase Urine RBC Urine WBC Ur Squamous Epith Cells Urine Bacteria Hyaline Casts Stool Occult Blood Influenza Type A (PCR) Influenza Type B (PCR) RSV RNA Qual (PCR) SARS-CoV-2 RNA (RT-PCR) <Ramon Ingram PA-C - Last Filed: 02/20/25 08:18> Procedures Date of Service Date of Service: 02/20/25 <Ramon Ingram PA-C - Last Filed: 02/20/25 08:18> 02/20/25 <Bryson Pascual MD - Last Filed: 02/20/25 07:59> Progress Note: A&P Assessment and plan (1) Partial small bowel obstruction: Status: Acute <Ramon Ingram PA-C - Last Filed: 02/20/25 08:18> Assessment and Plan: 69 year old male with a prior history of TBI, BPH, orthostatic hypotension, chronic hepatitis C on epclusa, hld, epilepsy, secondary hyperparathyroidism of renal origin, GERD, schizoaffective disorder, urinary retention, osteoporosis, gait/mobility impairment, ADHD, and CKD stage 3, and a previous surgical history of an open cholecystectomy, admitted for abdominal pain with associated nausea and vomiting, found to have partial SBO on CT scan. Patient improving today. Improvement in pain. Denies nausea/vomiting. Abdomen remains distended, tympanic to percussion. Mildly tender to palpation. NG tube in place. Output this morning 600 cc. Mild decrease in h/h today, likely secondary to dehydration. Slight worsening of kidney function on morning labs. Would recommend continuing IV hydration. BP improving with fluids and albumin Will continue to monitor. Plan: Continue with nonoperative management NG tube remain in place NPO IV fluids Serial abdominal exams <Ramon Ingram PA-C - Last Filed: 02/20/25 08:18> 69 year old male with a prior history of TBI, BPH, orthostatic hypotension, chronic hepatitis C on epclusa, hld, epilepsy, secondary hyperparathyroidism of renal origin, GERD, schizoaffective disorder, urinary retention, osteoporosis, gait/mobility impairment, ADHD, and CKD stage 3, and a previous surgical history of an open cholecystectomy, admitted for abdominal pain with associated nausea and vomiting, found to have partial SBO on CT scan. Patient improving today. Improvement in pain. Denies nausea/vomiting. Abdomen remains distended, tympanic to percussion. Mildly tender to palpation. NG tube in place. Output this morning 600 cc. Mild decrease in h/h today, likely secondary to dehydration. Slight worsening of kidney function on morning labs. Would recommend continuing IV hydration. BP improving with fluids and albumin Will continue to monitor. Plan: Continue with nonoperative management NG tube remain in place NPO IV fluids Serial abdominal exams Patient seen and examined independently and I agree with the above assessment and plan. Overall the patient is improved with decreased abdominal pain but he continues to have abdominal distention. He denies any flatus or BM at this time. We will continue NG tube decompression and bowel rest. BUN 67/creatinine 3.75. Awaiting nephrology evaluation. BP is soft with stable. Continue nonoperative management. <Bryson Pascual MD - Last Filed: 02/20/25 07:59> Time Spent With Patient Time: Total time managing care of this patient today ____ minutes. <Ramon Ingram PA-C - Last Filed: 02/20/25 08:18> Quality Stroke Does the patient have a stroke diagnosis?: No <Bryson Pascual MD - Last Filed: 02/20/25 07:59> VTE Prior VTE?: No <Bryson Pascual MD - Last Filed: 02/20/25 07:59> VTE Risk Level:: Surgical - moderate <Ramon Ingram PA-C - Last Filed: 02/20/25 08:18> VTE Device Contraindication: N/A - Device Ordered <Ramon Ingram PA-C - Last Filed: 02/20/25 08:18> VTE Drug Contraindication: N/A - Med Ordered <Ramon Ingram PA-C - Last Filed: 02/20/25 08:18>
[2025-02-20 07:31] VITALS: BP 129/66; PULSE 115; RESP 20; TEMP 37.1; O2SAT 97
[2025-02-20 07:38] LABS: Atypical Lymph Absolute Manual 0.5 x10*3/uL; Atypical Lymphs Percent Manual 6 % (0-6); Band Neutrophils Percent 29 % (3-5); Burr Cells 1+ (0-2) /OIF; Lymphocytes Absolute Manual 0.5 X10*3/uL (1.2-4.9); Lymphocytes Percent Manual 6 % (20-40); Metamyelocytes Absolute 0.4 X10*3/uL; Metamyelocytes Percent 5 %; Monocytes Absolute Manual 0.6 X10*3/uL (0.1-1.2); Monocytes Percent Manual 7 % (2-11); Neutrophils Absolute Manual 6.2 X10*3/uL (2.0-8.3); Neutrophils Percent Manual 47 % (45-73); Platelet Estimate NORMAL (NORMAL); Platelet Morphology Comment NORMAL; RBC Morphology NOTED; Toxic Vacuolation PRESENT
[2025-02-20] MEDS: Dextrose 5 % and Lactated Ring 1,000 ML 125 ML IVCONT ×3 (08:03→21:39)
[2025-02-20] MEDS: Hydrocortisone Sod Succ/PF 100 MG VIAL 50 MG IVPUSH ×3 (08:53→23:10)
[2025-02-20] MEDS: cloZAPine 100 MG TABLET PO (08:53)
[2025-02-20] MEDS: Gabapentin 100 MG CAPSULE 200 MG PO ×3 (08:53→18:49)
[2025-02-20] MEDS: Tamsulosin HCL 0.4 MG CAPSULE PO (08:53)
[2025-02-20 09:24] LABS: Neut%MD 70.5 %; Neutrophils Absolute Auto 6.6 x10*3/uL (2.0-8.3); WBCANC 9.4 X10*3/uL
[2025-02-20] MEDS: Fludrocortisone Acetate 0.1 MG TABLET 0.2 MG PO (09:37)
[2025-02-20] MEDS: calcitrioL 0.25 MCG CAPSULE PO (09:38)
--- NOTE | 2025-02-20 09:47 | HO.PM.IMPN ---
Subjective Subjective Date of Service: 02/20/25 Interval History: f/u sbo no bm reported, abd still distended, low bp resolved, overall looks better Physical Exam Vital Signs: Vital Signs: Last Vital Signs Temp 98.7 F 02/20/25 07:31 Pulse 115 H 02/20/25 07:31 Resp 20 02/20/25 07:31 BP 129/66 02/20/25 07:31 Pulse Ox 97 02/20/25 07:31 O2 Del Method Room Air 02/20/25 07:31 O2 Flow Rate 2 02/20/25 04:00 BMI result Body Mass Index 37.4 Const: Other: General: oriented to lisa Resp: CTA bilateral CVS: S1,S2,RRR GI: -BS, NT, + distention Skin: No rash Neuro: motor grossly intact Psych: flat Objective Data Active Medications Albuterol Sulfate (Albuterol Sulfate 90 Mcg 8 Gm Inhaler) 2 puff INHALE Q4H PRN PRN Reason: Wheezing Artificial Tears (Artificial Tears 15 Ml Drops) 1 drop EYE-BOTH BID BRUCE Bisacodyl (Bisacodyl 10 Mg Supp.Rect) 10 mg [place] DAILY PRN PRN Reason: Constipation Calcitriol (Calcitriol 0.25 Mcg Capsule) 0.25 mcg PO TUFR [facility] Last Admin: 02/20/25 09:38 Dose: 0.25 mcg Documented By: CASTILLO Calcium Carbonate (Calcium Carbonate 750 Mg Tab.Chew) 750 mg PO Q4H PRN PRN Reason: Heartburn Ceftriaxone Sodium (Ceftriaxone Sodium 1 Gm Vial) 1 gm IVPUSH BEDTIME [facility] Last Admin: 02/19/25 23:32 Dose: 1 gm Documented By: OSEI Clozapine (Clozapine 100 Mg Tablet) 100 mg PO DAILY [facility] Last Admin: 02/20/25 08:53 Dose: 100 mg Documented By: CASTILLO Clozapine (Clozapine 100 Mg Tablet) 200 mg PO BEDTIME [facility] Enoxaparin Sodium (Enoxaparin Sodium 30 Mg/0.3 Ml Syringe) 30 mg SUBCUT Q24H [facility] Last Admin: 02/19/25 15:55 Dose: 30 mg Documented By: SCIRPOS Fludrocortisone Acetate (Fludrocortisone Acetate 0.1 Mg Tablet) 0.2 mg PO DAILY [facility] Last Admin: 02/20/25 09:37 Dose: 0.2 mg Documented By: CASTILLO Gabapentin (Gabapentin 100 Mg Capsule) 200 mg PO TID [facility] Last Admin: 02/20/25 08:53 Dose: 200 mg Documented By: CASTILLO Hydrocortisone Sodium Succinate (Hydrocortisone Sod Succ/Pf 100 Mg Vial) 50 mg IVPUSH Q8H [facility] Last Admin: 02/20/25 08:53 Dose: 50 mg Documented By: CASTILLO Hydromorphone HCl (Hydromorphone Hcl 0.5 Mg/0.5 Ml Syringe) 0.5 mg IVPUSH Q3H PRN; Protocol PRN Reason: Pain, Severe (Pain Scale 7-10) Acetaminophen (Ofirmev) 1,000 mg in 100 mls @ 400 mls/hr IV Q6H PRN PRN Reason: Pain, Mild (Pain Scale 1-3) Dextrose/Lactated Ringer's (D5lr) 1,000 mls @ 125 mls/hr IVCONT .Q8H [facility] Last Admin: 02/20/25 08:03 Dose: 125 mls/hr Documented By: CASTILLO Magnesium Hydroxide (Milk Of Magnesia 30 Ml Oral.Susp) 30 ml PO DAILY PRN PRN Reason: Constipation Melatonin (Melatonin 3 Mg Tablet) 6 mg PO BEDTIME PRN PRN Reason: Insomnia Last Admin: 02/20/25 02:23 Dose: 6 mg Documented By: OSEI Non-Formulary Medication (Clomipramine) 100 mg PO BEDTIME [facility] Omeprazole (Omeprazole 40 Mg Capsule.Dr) 40 mg PO BID@0630,1630 [facility] Ondansetron HCl (Ondansetron Hcl 4 Mg/2 Ml Vial) 4 mg IVPUSH QID PRN PRN Reason: Nausea Last Admin: 02/19/25 20:06 Dose: 4 mg Documented By: OSEI Senna (Sennosides 8.6 Mg Tablet) 8.6 mg PO DAILY PRN PRN Reason: Constipation Sodium Chloride (0.9 % Sodium Chloride Flush 3 Ml Syringe) 3 ml IVFLUSH QSHIFT [facility] Last Admin: 02/20/25 06:54 Dose: Not Given Documented By: CASTILLO Non-Admin Reason: IV Running Tamsulosin HCl (Tamsulosin Hcl 0.4 Mg Capsule) 0.4 mg PO DAILY [facility] Last Admin: 02/20/25 08:53 Dose: 0.4 mg Documented By: CASTILLO Labs 02/20/25 05:29 02/20/25 05:29 Labs: Laboratory Results - last 24 hr 02/19/25 02/19/25 02/19/25 09:23 09:48 12:04 MCV MCH MCHC RDW Plt Count MPV Immature Gran % (Auto) Neut % (Auto) Lymph % (Auto) [place] % (Auto) Eos % (Auto) Baso % (Auto) Lymph # (Auto) [place] # (Auto) Eos # (Auto) Baso # (Auto) Abs Immat Gran (auto) Absolute Neuts (auto) Absolute Nucleated RBC Nucleated RBC % (auto) Neutrophils % (Manual) Band Neutrophils % Lymphocytes % (Manual) Atypical Lymphs % (Man) Monocytes % (Manual) Metamyelocytes % Abs Neuts (Manual) Lymphocytes # (Manual) Atyp Lymphs # (Manual) Monocytes # (Manual) Metamyelocytes # Toxic Vacuolation Platelet Estimate Plt Morphology Comment RBC Morphology Ihsan Cells Anion Gap 20 Estim Creat Clear Calc 21.6 Estimated GFR 17 Random Glucose 144 H Lactic Acid 3.7 H* Lactic Acid F/U @ 2Hr 2.4 H* Lactic Acid F/U @ 4Hr Calcium 10.0 D Total Bilirubin 0.8 Direct Bilirubin 0.4 AST 35 ALT 36 Alkaline Phosphatase 78 Troponin I High Sens 12.6 Total Protein 7.6 Albumin 3.9 Urine Color Urine Appearance Urine pH Ur Specific [place] Urine Protein Urine Glucose (UA) Urine Ketones Urine Blood Urine Nitrite Ur Leukocyte Esterase Urine RBC Urine WBC Ur Squamous Epith Cells Urine Bacteria Hyaline Casts Stool Occult Blood NEGATIVE Influenza Type A (PCR) NEGATIVE Influenza Type B (PCR) NEGATIVE RSV RNA Qual (PCR) NEGATIVE SARS-CoV-2 RNA (RT-PCR) NEGATIVE 02/19/25 02/19/25 02/20/25 15:13 21:07 05:29 MCV 89.1 MCH 27.3 MCHC 30.6 L RDW 14.3 Plt Count 215 D MPV 9.7 Immature Gran % (Auto) Cancelled Neut % (Auto) Cancelled Lymph % (Auto) Cancelled [place] % (Auto) Cancelled Eos % (Auto) Cancelled Baso % (Auto) Cancelled Lymph # (Auto) Cancelled [place] # (Auto) Cancelled Eos # (Auto) Cancelled Baso # (Auto) Cancelled Abs Immat Gran (auto) Cancelled Absolute Neuts (auto) Cancelled Absolute Nucleated RBC 0.000 Nucleated RBC % (auto) 0.0 Neutrophils % (Manual) 47 Band Neutrophils % 29 H Lymphocytes % (Manual) 6 L Atypical Lymphs % (Man) 6 Monocytes % (Manual) 7 Metamyelocytes % 5 Abs Neuts (Manual) 6.2 Lymphocytes # (Manual) 0.5 L Atyp Lymphs # (Manual) 0.5 Monocytes # (Manual) 0.6 Metamyelocytes # 0.4 Toxic Vacuolation PRESENT Platelet Estimate NORMAL Plt Morphology Comment NORMAL RBC Morphology NOTED Ihsan Cells 1+ (0-2) Anion Gap 16 Estim Creat Clear Calc 20.7 Estimated GFR 16 Random Glucose 145 H Lactic Acid Lactic Acid F/U @ 2Hr Lactic Acid F/U @ 4Hr 3.4 H* Calcium 9.0 D Total Bilirubin 0.6 Direct Bilirubin AST 34 ALT 25 Alkaline Phosphatase 63 Troponin I High Sens Total Protein 7.1 Albumin 3.7 Urine Color Dark Yellow Urine Appearance Clear Urine pH 6.0 Ur Specific [place] 1.020 Urine Protein 100 (2+) H Urine Glucose (UA) Negative Urine Ketones Trace Urine Blood Negative Urine Nitrite Negative Ur Leukocyte Esterase Trace H Urine RBC 0-2 Urine WBC 6-10 H Ur Squamous Epith Cells 3-5 Urine Bacteria 1+ Hyaline Casts 0-2 Stool Occult Blood Influenza Type A (PCR) Influenza Type B (PCR) RSV RNA Qual (PCR) SARS-CoV-2 RNA (RT-PCR) 02/20/25 09:06 MCV MCH MCHC RDW Plt Count MPV Immature Gran % (Auto) Neut % (Auto) Lymph % (Auto) [place] % (Auto) Eos % (Auto) Baso % (Auto) Lymph # (Auto) [place] # (Auto) Eos # (Auto) Baso # (Auto) Abs Immat Gran (auto) Absolute Neuts (auto) 6.6 Absolute Nucleated RBC Nucleated RBC % (auto) Neutrophils % (Manual) Band Neutrophils % Lymphocytes % (Manual) Atypical Lymphs % (Man) Monocytes % (Manual) Metamyelocytes % Abs Neuts (Manual) Lymphocytes # (Manual) Atyp Lymphs # (Manual) Monocytes # (Manual) Metamyelocytes # Toxic Vacuolation Platelet Estimate Plt Morphology Comment RBC Morphology [place] Cells Anion Gap Estim Creat Clear Calc Estimated GFR Random Glucose Lactic Acid Lactic Acid F/U @ 2Hr Lactic Acid F/U @ 4Hr Calcium Total Bilirubin Direct Bilirubin AST ALT Alkaline Phosphatase Troponin I High Sens Total Protein Albumin Urine Color Urine Appearance Urine pH Ur Specific [place] Urine Protein Urine Glucose (UA) Urine Ketones Urine Blood Urine Nitrite Ur Leukocyte Esterase Urine RBC Urine WBC Ur Squamous Epith Cells Urine Bacteria Hyaline Casts Stool Occult Blood Influenza Type A (PCR) Influenza Type B (PCR) RSV RNA Qual (PCR) SARS-CoV-2 RNA (RT-PCR) Microbiology Microbiology Results: Microbiology 02/19/25 21:37 Urine Culture - Preliminary Urine clean catch - Clean Catch Midstream No growth to date. Assessment and Plan (1) Complete small bowel obstruction: Status: Acute (2) JOSE L (acute kidney injury): Status: Acute Plan 69 year old male with history of TBI, BPH, orthostatic hypotension, chronic hepatitis C on epclusa, hld, epilepsy, secondary hyperparathyroidism of renal origin, GERD, schizoaffective disorder, urinary retention, osteoporosis, gait/mobility impairment, ADHD, and CKD stage 3 here with acute small deann obstruction associated with Hypotension Acute SBO, has NGT Surgery following NPO JOSE L on CKD IV, Creatine is above baseline, likely from hypotension leading to renal hypoperfusion need to be on IVF, will consult Nephrology hypErnatremia, mild, monitor HypOtension, related to SBP but has history of adrenal insuficiency IV solucortef h/o orthostatic hypotension mododrine Possible PNA, no hypoxia got zosyn in ED, continue Ceftriaxone Schizoaffective disorder review meds and restart, if needed will get Psych to help keep on ANC DVT prophylaxis- Lovenox Full code reason for continued hospitalization: monitoring tolerance of solids, hypernatremia without ivf Quality Stroke Does the patient have a stroke diagnosis?: No VTE Prior VTE?: No VTE Risk Level:: Surgical - moderate VTE Device Contraindication: N/A - Device Ordered VTE Drug Contraindication: N/A - Med Ordered
--- NOTE | 2025-02-20 09:50 | MHC.CM.PN ---
Patient is from [facility]. His sister, Oralia, is HCP. Copy requested from facility. LM for HCP to inform of admission. PCP [place] DO IMM delivered. DP: Return to [facility] via facility van. CM will continue to follow.
[2025-02-20 12:00] VITALS: BP 149/65; PULSE 107
[2025-02-20] MEDS: Artificial Tears 15 ML DROPS 1 DROP EYE-BOTH (12:33)
[2025-02-20] MEDS: Enoxaparin Sodium 30 MG/0.3 ML SYRINGE SUBCUT (14:19)
[2025-02-20 15:31] VITALS: BP 126/83; PULSE 103; RESP 17; TEMP 36.9; O2SAT 92
[2025-02-20] MEDS: Omeprazole 40 MG CAPSULE.DR PO (15:35)
--- NOTE | 2025-02-20 18:25 | PM.CNNEP ---
History of Present Illness Reason for Consult Consult date: 02/20/25 Reason for consult: JOSE L Chief Complaint Chief complaint: small bowel obstruction partial History of Present Illness Narrative: 69 year old male with history of TBI, BPH, orthostatic hypotension, chronic hepatitis C on epclusa, secondary hyperparathyroidism of renal origin, GERD, schizoaffective disorder, urinary retention, osteoporosis, gait/mobility impairment, ADHD, and CKD stage 3 presented to hospital with acute small bowel obstruction associated with hypotension. His serum creatinine has gone over baseline. Nephrology has been consulted to assist in his clinical care during his current hospital stay Review of Systems Review of Systems Yes all other systems are reviewed and are negative PMFSH Past Medical History Medical History Partial small bowel obstruction Schizoaffective disorder Chronic kidney disease, stage 3 Anemia Hyperlipidemia Orthostatic hypotension GERD (gastroesophageal reflux disease) Attention deficit hyperactivity disorder Neurogenic bladder Hematuria TBI (traumatic brain injury) Surgical History Surgical History History of surgery Social History Social History Household Members: Other Housing: Longterm Do you presently have visiting nurse or other home services: Yes Alcohol intake: never Patient Tobacco Use Status: Former Tobacco user Tobacco use type: Cigarette and Cigar Advance Directives Date on File: 07/10/21 service: No Current occupational status: disabled Meds Allergies Allergy/AdvReac Type Severity Reaction Status Date / Time NSAIDS (Non-Steroidal Allergy Unknown UNKNOWN Verified 02/19/25 09:00 Anti-Inflamma [NSAIDS (NON-STEROIDAL ANTI-INFLAMMA] Active Medications: Current Medications Albuterol Sulfate (Albuterol Sulfate 90 Mcg 8 Gm Inhaler) 2 puff INHALE Q4H PRN PRN Reason: Wheezing Artificial Tears (Artificial Tears 15 Ml Drops) 1 drop EYE-BOTH BID [facility] Last Admin: 02/20/25 12:33 Dose: 1 drop Bisacodyl (Bisacodyl 10 Mg Supp.Rect) 10 mg [place] DAILY PRN PRN Reason: Constipation Calcitriol (Calcitriol 0.25 Mcg Capsule) 0.25 mcg PO TUFR [facility] Last Admin: 02/20/25 09:38 Dose: 0.25 mcg Calcium Carbonate (Calcium Carbonate 750 Mg Tab.Chew) 750 mg PO Q4H PRN PRN Reason: Heartburn Ceftriaxone Sodium (Ceftriaxone Sodium 1 Gm Vial) 1 gm IVPUSH BEDTIME [facility] Last Admin: 02/19/25 23:32 Dose: 1 gm Clozapine (Clozapine 100 Mg Tablet) 100 mg PO DAILY [facility] Last Admin: 02/20/25 08:53 Dose: 100 mg Clozapine (Clozapine 100 Mg Tablet) 200 mg PO BEDTIME [facility] Enoxaparin Sodium (Enoxaparin Sodium 30 Mg/0.3 Ml Syringe) 30 mg SUBCUT Q24H [facility] Last Admin: 02/20/25 14:19 Dose: 30 mg Fludrocortisone Acetate (Fludrocortisone Acetate 0.1 Mg Tablet) 0.2 mg PO DAILY [facility] Last Admin: 02/20/25 09:37 Dose: 0.2 mg Gabapentin (Gabapentin 100 Mg Capsule) 200 mg PO TID [facility] Last Admin: 02/20/25 14:19 Dose: 200 mg Hydrocortisone Sodium Succinate (Hydrocortisone Sod Succ/Pf 100 Mg Vial) 50 mg IVPUSH Q8H [facility] Last Admin: 02/20/25 15:35 Dose: 50 mg Hydromorphone HCl (Hydromorphone Hcl 0.5 Mg/0.5 Ml Syringe) 0.5 mg IVPUSH Q3H PRN; Protocol PRN Reason: Pain, Severe (Pain Scale 7-10) Acetaminophen (Ofirmev) 1,000 mg in 100 mls @ 400 mls/hr IV Q6H PRN PRN Reason: Pain, Mild (Pain Scale 1-3) Dextrose/Lactated Ringer's (D5lr) 1,000 mls @ 125 mls/hr IVCONT .Q8H [facility] Last Admin: 02/20/25 14:24 Dose: 125 mls/hr Magnesium Hydroxide (Milk Of Magnesia 30 Ml Oral.Susp) 30 ml PO DAILY PRN PRN Reason: Constipation Melatonin (Melatonin 3 Mg Tablet) 6 mg PO BEDTIME PRN PRN Reason: Insomnia Last Admin: 02/20/25 02:23 Dose: 6 mg Non-Formulary Medication (Clomipramine) 100 mg PO BEDTIME [facility] Omeprazole (Omeprazole 40 Mg Capsule.Dr) 40 mg PO BID@0630,1630 [facility] Last Admin: 02/20/25 15:35 Dose: 40 mg Ondansetron HCl (Ondansetron Hcl 4 Mg/2 Ml Vial) 4 mg IVPUSH QID PRN PRN Reason: Nausea Last Admin: 02/19/25 20:06 Dose: 4 mg Senna (Sennosides 8.6 Mg Tablet) 8.6 mg PO DAILY PRN PRN Reason: Constipation Sodium Chloride (0.9 % Sodium Chloride Flush 3 Ml Syringe) 3 ml IVFLUSH QSHIFT [facility] Last Admin: 02/20/25 14:25 Dose: Not Given Tamsulosin HCl (Tamsulosin Hcl 0.4 Mg Capsule) 0.4 mg PO DAILY [facility] Last Admin: 02/20/25 08:53 Dose: 0.4 mg Home Medications ?Medication ?Instructions ?Recorded ?Confirmed ?Last Taken ?Type albuterol sulfate 90 mcg/actuation 2 puff inhalation Q4H PRN Wheezing 07/10/21 02/19/25 Unknown History aerosol inhaler ascorbic acid (vitamin C) 500 mg 500 mg PO DAILY 07/10/21 02/19/25 10/04/22 History tablet (Vitamin C) calcitriol 0.25 mcg capsule 0.25 mcg PO TUFR 07/10/21 02/19/25 10/02/22 History clomipramine 50 mg capsule 100 mg PO BEDTIME ANXIETY 07/10/21 02/19/25 10/04/22 History docusate sodium 100 mg tablet 100 mg PO BID 07/10/21 02/19/25 10/04/22 History fenofibrate nanocrystallized 145 145 mg PO DAILY 07/10/21 02/19/25 10/04/22 History mg tablet ferrous sulfate 325 mg (65 mg 325 mg PO DAILY 07/10/21 02/19/25 10/04/22 History iron) tablet fludrocortisone 0.1 mg tablet 0.2 mg PO DAILY 07/10/21 02/19/25 10/04/22 History guaifenesin 100 mg/5 mL oral liquid 200 mg PO Q4H PRN Cough 07/10/21 02/19/25 Unknown History loratadine 10 mg tablet 10 mg PO DAILY PRN Allergy Symptoms 07/10/21 02/19/25 Unknown History multivitamin 1 tab PO DAILY 07/10/21 02/19/25 10/04/22 History sennosides 8.6 mg tablet (senna) 8.6 mg PO DAILY PRN Constipation 07/10/21 02/19/25 Unknown History bisacodyl 10 mg rectal suppository 10 mg [place] DAILY PRN Constipation 05/13/22 02/19/25 Unknown History hydrocortisone 10 mg tablet 10 mg PO TID 05/13/22 02/19/25 10/04/22 History clozapine 200 mg tablet 200 mg PO BEDTIME 06/02/22 02/20/25 02/18/25 History acetaminophen 325 mg tablet 650 mg PO Q6H PRN Fever Or Pain 02/19/25 02/19/25 Unknown History alfuzosin 10 mg tablet,extended 10 mg PO DAILY 02/19/25 02/19/25 Unknown History release 24 hr aluminum-mag hydroxide-simethicone 30 ml PO Q4H PRN GI Upset 02/19/25 02/19/25 Unknown History 200 mg-200 mg-20 mg/5 mL oral susp amlodipine 5 mg tablet 5 mg PO DAILY 02/19/25 02/19/25 Unknown History carboxymethylcellulose sodium 1 % 1 drp ophthalmic (eye) BID 02/19/25 02/19/25 Unknown History eye drops (Artificial Tears (carboxymethylcellulose)) clozapine 100 mg tablet 100 mg PO DAILY 02/19/25 02/20/25 02/18/25 History ergocalciferol (vitamin D2) 1,250 1,250 mcg PO FR 02/19/25 02/19/25 Unknown History mcg (50,000 unit) capsule gabapentin 100 mg capsule 200 mg PO TID 02/19/25 02/19/25 Unknown History menthol 5 % topical patch (Bengay 1 patch topical Q8H PRN muscle ache 02/19/25 02/19/25 Unknown History Ultra Strength (menthol)) naloxone 4 mg/actuation nasal 4 mg intranasal Q3M PRN overdose 02/19/25 02/19/25 Unknown History spray (Narcan) omeprazole 40 mg capsule,delayed 40 mg PO BID@0630,1630 02/19/25 02/19/25 Unknown History release sennosides 8.6 mg tablet (senna) 8.6 mg PO BID Constipation 02/19/25 02/19/25 Unknown History tramadol 50 mg tablet 50 mg PO TID 02/19/25 02/19/25 Unknown History Physical Exam Vital Signs: Last Vital Signs Temp 98.4 F 02/20/25 15:31 Pulse 103 H 02/20/25 15:31 Resp 17 02/20/25 15:31 BP 126/83 02/20/25 15:31 Pulse Ox 92 02/20/25 15:31 O2 Del Method Room Air 02/20/25 15:31 O2 Flow Rate 2 02/20/25 04:00 BMI result Body Mass Index 37.4 Const General: no acute distress Eyes EOM: EOMs intact bilaterally Neck Neck: Yes supple Resp Auscultation: diminished lung sounds Cardio Rate: regular rate GI Palpation (GI): Soft to palpation Neuro General: moves all extremities Results Lab Results 02/20/25 05:29 02/20/25 05:29 Lab results: Chemistry 02/19/25 02/20/25 09:23 05:29 Sodium 147 H 146 H Potassium 4.8 4.5 Carbon Dioxide 25 21 L BUN 65 H 67 H Creatinine 3.59 H 3.75 H Calcium 10.0 D 9.0 D Hematology 02/19/25 02/20/25 09:23 05:29 WBC 6.9 8.1 Hgb 13.0 L 10.5 L Plt Count 301 D 215 D Urinalysis 02/19/25 21:07 Urine Color Dark Yellow Urine Appearance Clear Urine pH 6.0 Ur Specific [place] 1.020 Urine Protein 100 (2+) H Urine Glucose (UA) Negative Urine Ketones Trace Urine Blood Negative Urine Nitrite Negative Ur Leukocyte Esterase Trace H Urine RBC 0-2 Urine WBC 6-10 H Ur Squamous Epith Cells 3-5 Hyaline Casts 0-2 Assessment and Plan (1) JOSE L (acute kidney injury): Status: Acute Plan Has CKD 3 at baseline; JOSE L due to tubular injury UO OK & no reason to suspect obstructive uropathy Serum creatinine not plateaued yet;On hydrocortisone No indication for renal replacement; C/W current supp care Procedures Date of Service Date of Service: 02/20/25
[2025-02-20] MEDS: cloZAPine 100 MG TABLET 200 MG PO (18:49)
[2025-02-20] MEDS: ondansetron HCL 4 MG/2 ML VIAL IVPUSH (18:52)
[2025-02-20] MEDS: 0.9 % Sodium Chloride Flush 3 ML SYRINGE IVFLUSH (18:52)
[2025-02-20 19:37] VITALS: BP 145/75; PULSE 103; RESP 18; TEMP 37.2; O2SAT 92
[2025-02-20] MEDS: cefTRIAXone sodium 1 GM VIAL IVPUSH (20:11)
[2025-02-20] MEDS: clomiPRAMINE HCl 25 MG CAPSULE 100 MG PO (20:43)
[2025-02-20] MEDS: HYDROmorphone HCl 0.5 MG/0.5 ML SYRINGE IVPUSH (21:41)
[2025-02-20 23:21] VITALS: BP 126/74; PULSE 108; RESP 18; TEMP 36.4; O2SAT 93
[2025-02-21] VITALS (7 sets, daily range): BP systolic 138–181; BP diastolic 68–86; PULSE 63–107; RESP 16–20; TEMP 36.3–36.8; O2SAT 90–94
[2025-02-21] MEDS: Omeprazole 40 MG CAPSULE.DR PO ×2 (05:28→15:19)
[2025-02-21] MEDS: Dextrose 5 % and Lactated Ring 1,000 ML 125 ML IVCONT ×3 (05:28→22:19)
[2025-02-21 06:31] LABS: Hematocrit 32.6 % (42.0-52.0); Hemoglobin 10.1 g/dl (14.0-18.0); Mean Corpuscular Hemoglobin 27.4 pg (27.0-33.0); Mean Corpuscular Volume 88.6 fL (80.0-98.0); Mean Platelet Volume 9.6 fL (9.4-12.4); Platelet Count 191 X10*3/uL (160-400); Red Blood Count 3.68 X10*6/uL (4.60-5.80); Red Cell Distribution Width 14.2 % (11.0-16.0); White Blood Count 9.8 X10*3/uL (4.8-10.8)
[2025-02-21 06:36] LABS: Anion Gap 12 (12-20); Blood Urea Nitrogen 51 mg/dL (9-16); Carbon Dioxide 23 mmol/L (22-29); Chloride 116 mmol/L (96-108); Creatinine Clr Calc Pharmacy 27.7; Estimated Glomerular Filt Rate 23; Glucose Random 132 mg/dL (60-115); Potassium 4.1 mmol/L (3.3-5.1); Sodium 147 mmol/L (135-145)
[2025-02-21] MEDS: Gabapentin 100 MG CAPSULE 200 MG PO ×3 (07:28→20:41)
[2025-02-21] MEDS: cloZAPine 100 MG TABLET PO (07:28)
[2025-02-21] MEDS: Tamsulosin HCL 0.4 MG CAPSULE PO (07:28)
[2025-02-21] MEDS: Fludrocortisone Acetate 0.1 MG TABLET 0.2 MG PO (07:28)
[2025-02-21] MEDS: Hydrocortisone Sod Succ/PF 100 MG VIAL 50 MG IVPUSH ×2 (07:30→15:18)
[2025-02-21] MEDS: Artificial Tears 15 ML DROPS 1 DROP EYE-BOTH (07:30)
--- NOTE | 2025-02-21 09:22 | PM.PNGS ---
Subjective Subjective Date of Service: 02/21/25 Patient reports: no new complaints, feels better, flatus and bowel movement Interval history: Patient doing better today. Has been passing more flatus, small BM. NG tube 200 overnight. Pain improving, still feels bloated. Denies nausea, vomiting. Physical Exam Vital Signs: Vital Signs: Last Vital Signs Temp 98 F 02/21/25 06:55 Pulse 100 02/21/25 06:55 Resp 17 02/21/25 06:55 BP 150/82 H 02/21/25 06:55 Pulse Ox 90 L 02/21/25 06:55 O2 Del Method Room Air 02/21/25 06:55 O2 Flow Rate 2 02/20/25 04:00 BMI result Body Mass Index 37.4 Const: General: comfortable and no acute distress Orientation/consciousness: patient oriented x3 Resp: Effort & Inspection: able to speak in complete sentences GI: Inspection: Yes distended (mild) Palpation (GI): Soft to palpation, not firm, Tenderness to palpation present (GI) (mild epigastric ), no guarding and not rigid Percussion: Yes tympanic to percussion (mild) Neuro: General: patient oriented x3 Objective Data Active Medications Albuterol Sulfate (Albuterol Sulfate 90 Mcg 8 Gm Inhaler) 2 puff INHALE Q4H PRN PRN Reason: Wheezing Artificial Tears (Artificial Tears 15 Ml Drops) 1 drop EYE-BOTH BID [facility] Last Admin: 02/21/25 07:30 Dose: 1 drop Documented By: CASTILLO Bisacodyl (Bisacodyl 10 Mg Supp.Rect) 10 mg [place] DAILY PRN PRN Reason: Constipation Calcitriol (Calcitriol 0.25 Mcg Capsule) 0.25 mcg PO TUFR [facility] Last Admin: 02/20/25 09:38 Dose: 0.25 mcg Documented By: CASTILLO Calcium Carbonate (Calcium Carbonate 750 Mg Tab.Chew) 750 mg PO Q4H PRN PRN Reason: Heartburn Ceftriaxone Sodium (Ceftriaxone Sodium 1 Gm Vial) 1 gm IVPUSH BEDTIME [facility] Last Admin: 02/20/25 20:11 Dose: 1 gm Documented By: OSEI Clomipramine HCl (Clomipramine Hcl 25 Mg Capsule) 100 mg PO BEDTIME [facility] Last Admin: 02/20/25 20:43 Dose: 100 mg Documented By: OSEI Clozapine (Clozapine 100 Mg Tablet) 100 mg PO DAILY [facility] Last Admin: 02/21/25 07:28 Dose: 100 mg Documented By: CASTILLO Clozapine (Clozapine 100 Mg Tablet) 200 mg PO BEDTIME [facility] Last Admin: 02/20/25 18:49 Dose: 200 mg Documented By: OSEI Enoxaparin Sodium (Enoxaparin Sodium 30 Mg/0.3 Ml Syringe) 30 mg SUBCUT Q24H [facility] Last Admin: 02/20/25 14:19 Dose: 30 mg Documented By: CASTILLO Fludrocortisone Acetate (Fludrocortisone Acetate 0.1 Mg Tablet) 0.2 mg PO DAILY [facility] Last Admin: 02/21/25 07:28 Dose: 0.2 mg Documented By: CASTILLO Gabapentin (Gabapentin 100 Mg Capsule) 200 mg PO TID [facility] Last Admin: 02/21/25 07:28 Dose: 200 mg Documented By: CASTILLO Hydrocortisone Sodium Succinate (Hydrocortisone Sod Succ/Pf 100 Mg Vial) 50 mg IVPUSH Q8H [facility] Last Admin: 02/21/25 07:30 Dose: 50 mg Documented By: CASTILLO Hydromorphone HCl (Hydromorphone Hcl 0.5 Mg/0.5 Ml Syringe) 0.5 mg IVPUSH Q3H PRN; Protocol PRN Reason: Pain, Severe (Pain Scale 7-10) Last Admin: 02/20/25 21:41 Dose: 0.5 mg Documented By: OSEI Acetaminophen (Ofirmev) 1,000 mg in 100 mls @ 400 mls/hr IV Q6H PRN PRN Reason: Pain, Mild (Pain Scale 1-3) Dextrose/Lactated Ringer's (D5lr) 1,000 mls @ 125 mls/hr IVCONT .Q8H [facility] Last Admin: 02/21/25 05:28 Dose: 125 mls/hr Documented By: OSEI Magnesium Hydroxide (Milk Of Magnesia 30 Ml Oral.Susp) 30 ml PO DAILY PRN PRN Reason: Constipation Melatonin (Melatonin 3 Mg Tablet) 6 mg PO BEDTIME PRN PRN Reason: Insomnia Last Admin: 02/20/25 18:49 Dose: 6 mg Documented By: OSEI Omeprazole (Omeprazole 40 Mg Capsule.Dr) 40 mg PO BID@0630,1630 [facility] Last Admin: 02/21/25 05:28 Dose: 40 mg Documented By: OSEI Ondansetron HCl (Ondansetron Hcl 4 Mg/2 Ml Vial) 4 mg IVPUSH QID PRN PRN Reason: Nausea Last Admin: 02/20/25 18:52 Dose: 4 mg Documented By: OSEI Senna (Sennosides 8.6 Mg Tablet) 8.6 mg PO DAILY PRN PRN Reason: Constipation Sodium Chloride (0.9 % Sodium Chloride Flush 3 Ml Syringe) 3 ml IVFLUSH QSHIFT [facility] Last Admin: 02/21/25 06:38 Dose: Not Given Documented By: CASTILLO Non-Admin Reason: IV Running Tamsulosin HCl (Tamsulosin Hcl 0.4 Mg Capsule) 0.4 mg PO DAILY [facility] Last Admin: 02/21/25 07:28 Dose: 0.4 mg Documented By: CASTILLO Labs 02/21/25 05:31 02/21/25 05:31 Labs: Laboratory Results - last 24 hr 02/20/25 02/21/25 09:06 05:31 MCV 88.6 MCH 27.4 MCHC 31.0 RDW 14.2 Plt Count 191 MPV 9.6 Absolute Neuts (auto) 6.6 Absolute Nucleated RBC 0.000 Nucleated RBC % (auto) 0.0 Anion Gap 12 Estim Creat Clear Calc 27.7 Estimated GFR 23 Random Glucose 132 H Calcium 9.0 Microbiology Microbiology Results: Microbiology 02/19/25 21:37 Urine Culture - Final Urine clean catch - Clean Catch Midstream No growth. 02/19/25 09:23 Blood Culture - Preliminary Blood - Venous No growth after 24 hours. 02/19/25 09:23 Blood Culture - Preliminary Blood - Venous No growth after 24 hours. Procedures Date of Service Date of Service: 02/21/25 Progress Note: A&P Assessment and plan (1) Partial small bowel obstruction: Status: Acute Plan 69 year old male admitted for SBO. Patient overall improving today. Pain improving, patient passing more flatus and small BM. Abdomen is soft and benign. Mild epigastric tenderness. Overnight NG output 200, minimal at the time of evaluation. Will clamp for 4 hours, if output is less than 100cc will remove NG and trial clear liquids. We discussed the importance of slowly resuming diet, patient agreeable. AM labs at baseline. Patient experiencing intermittent desaturations, recommend using nasal cannula as needed. Respirations appropriate at time of evaluation, no increased work of breathing. Continue plan for nonoperative management Clamp NG for 4 hours, will remove if less than 100cc. Will remain NPO, potentially will advance to clear liquid. Supplemental O2 as needed. Pain regimen as needed Serial abdominal exams will follow up in afternoon. Time Spent With Patient Time: Total time managing care of this patient today ____ minutes. Quality Stroke Does the patient have a stroke diagnosis?: No VTE Prior VTE?: No VTE Risk Level:: Surgical - moderate VTE Device Contraindication: N/A - Device Ordered VTE Drug Contraindication: N/A - Med Ordered
--- NOTE | 2025-02-21 09:26 | PC.NURSE ---
Pt removed NGT at 0800 this am , provider aware
--- NOTE | 2025-02-21 10:54 | MHC.CM.PN ---
Per MD rounds patient not medically cleared for dc. CM will continue to follow.
--- NOTE | 2025-02-21 10:56 | HO.PM.IMPN ---
Subjective Subjective Date of Service: 02/21/25 Interval History: f/u sbo no bm reported, abd still distended, he has removed NGT No longer hypotensive, denies pain Physical Exam Vital Signs: Vital Signs: Last Vital Signs Temp 98 F 02/21/25 06:55 Pulse 100 02/21/25 06:55 Resp 17 02/21/25 06:55 BP 150/82 H 02/21/25 06:55 Pulse Ox 90 L 02/21/25 06:55 O2 Del Method Room Air 02/21/25 06:55 O2 Flow Rate 2 02/20/25 04:00 BMI result Body Mass Index 37.4 Const: Other: General: oriented to lisa Resp: CTA bilateral CVS: S1,S2,RRR GI: -BS, NT, + distention Skin: No rash Neuro: motor grossly intact Psych: flat Objective Data Active Medications Albuterol Sulfate (Albuterol Sulfate 90 Mcg 8 Gm Inhaler) 2 puff INHALE Q4H PRN PRN Reason: Wheezing Artificial Tears (Artificial Tears 15 Ml Drops) 1 drop EYE-BOTH BID [facility] Last Admin: 02/21/25 07:30 Dose: 1 drop Documented By: CASTILLO Bisacodyl (Bisacodyl 10 Mg Supp.Rect) 10 mg [place] DAILY PRN PRN Reason: Constipation Calcitriol (Calcitriol 0.25 Mcg Capsule) 0.25 mcg PO TUFR [facility] Last Admin: 02/20/25 09:38 Dose: 0.25 mcg Documented By: CASTILLO Calcium Carbonate (Calcium Carbonate 750 Mg Tab.Chew) 750 mg PO Q4H PRN PRN Reason: Heartburn Ceftriaxone Sodium (Ceftriaxone Sodium 1 Gm Vial) 1 gm IVPUSH BEDTIME [facility] Last Admin: 02/20/25 20:11 Dose: 1 gm Documented By: OSEI Clomipramine HCl (Clomipramine Hcl 25 Mg Capsule) 100 mg PO BEDTIME [facility] Last Admin: 02/20/25 20:43 Dose: 100 mg Documented By: OSEI Clozapine (Clozapine 100 Mg Tablet) 100 mg PO DAILY [facility] Last Admin: 02/21/25 07:28 Dose: 100 mg Documented By: CASTILLO Clozapine (Clozapine 100 Mg Tablet) 200 mg PO BEDTIME [facility] Last Admin: 02/20/25 18:49 Dose: 200 mg Documented By: OSEI Enoxaparin Sodium (Enoxaparin Sodium 30 Mg/0.3 Ml Syringe) 30 mg SUBCUT Q24H [facility] Last Admin: 02/20/25 14:19 Dose: 30 mg Documented By: CASTILLO Fludrocortisone Acetate (Fludrocortisone Acetate 0.1 Mg Tablet) 0.2 mg PO DAILY [facility] Last Admin: 02/21/25 07:28 Dose: 0.2 mg Documented By: CASTILLO Gabapentin (Gabapentin 100 Mg Capsule) 200 mg PO TID [facility] Last Admin: 02/21/25 07:28 Dose: 200 mg Documented By: CASTILLO Hydrocortisone Sodium Succinate (Hydrocortisone Sod Succ/Pf 100 Mg Vial) 50 mg IVPUSH Q8H [facility] Last Admin: 02/21/25 07:30 Dose: 50 mg Documented By: CASTILLO Hydromorphone HCl (Hydromorphone Hcl 0.5 Mg/0.5 Ml Syringe) 0.5 mg IVPUSH Q3H PRN; Protocol PRN Reason: Pain, Severe (Pain Scale 7-10) Last Admin: 02/20/25 21:41 Dose: 0.5 mg Documented By: OSEI Acetaminophen (Ofirmev) 1,000 mg in 100 mls @ 400 mls/hr IV Q6H PRN PRN Reason: Pain, Mild (Pain Scale 1-3) Dextrose/Lactated Ringer's (D5lr) 1,000 mls @ 125 mls/hr IVCONT .Q8H [facility] Last Admin: 02/21/25 05:28 Dose: 125 mls/hr Documented By: OSEI Magnesium Hydroxide (Milk Of Magnesia 30 Ml Oral.Susp) 30 ml PO DAILY PRN PRN Reason: Constipation Melatonin (Melatonin 3 Mg Tablet) 6 mg PO BEDTIME PRN PRN Reason: Insomnia Last Admin: 02/20/25 18:49 Dose: 6 mg Documented By: OSEI Omeprazole (Omeprazole 40 Mg Capsule.) 40 mg PO BID@0630,1630 [facility] Last Admin: 02/21/25 05:28 Dose: 40 mg Documented By: OSEI Ondansetron HCl (Ondansetron Hcl 4 Mg/2 Ml Vial) 4 mg IVPUSH QID PRN PRN Reason: Nausea Last Admin: 02/20/25 18:52 Dose: 4 mg Documented By: LUDMILAQC Senna (Sennosides 8.6 Mg Tablet) 8.6 mg PO DAILY PRN PRN Reason: Constipation Sodium Chloride (0.9 % Sodium Chloride Flush 3 Ml Syringe) 3 ml IVFLUSH QSHIFT [facility] Last Admin: 02/21/25 06:38 Dose: Not Given Documented By: CASTILLO Non-Admin Reason: IV Running Tamsulosin HCl (Tamsulosin Hcl 0.4 Mg Capsule) 0.4 mg PO DAILY [facility] Last Admin: 02/21/25 07:28 Dose: 0.4 mg Documented By: CASTILLO Labs 02/21/25 05:31 02/21/25 05:31 Labs: Laboratory Results - last 24 hr 02/21/25 05:31 MCV 88.6 MCH 27.4 MCHC 31.0 RDW 14.2 Plt Count 191 MPV 9.6 Absolute Nucleated RBC 0.000 Nucleated RBC % (auto) 0.0 Anion Gap 12 Estim Creat Clear Calc 27.7 Estimated GFR 23 Random Glucose 132 H Calcium 9.0 Microbiology Microbiology Results: Microbiology 02/19/25 21:37 Urine Culture - Final Urine clean catch - Clean Catch Midstream No growth. 02/19/25 09:23 Blood Culture - Preliminary Blood - Venous No growth after 24 hours. 02/19/25 09:23 Blood Culture - Preliminary Blood - Venous No growth after 24 hours. Assessment and Plan (1) Complete small bowel obstruction: Status: Acute (2) JOSE L (acute kidney injury): Status: Acute Plan 69 year old male with history of TBI, BPH, orthostatic hypotension, chronic hepatitis C on epclusa, hld, epilepsy, secondary hyperparathyroidism of renal origin, GERD, schizoaffective disorder, urinary retention, osteoporosis, gait/mobility impairment, ADHD, and CKD stage 3 here with acute small deann obstruction associated with Hypotension Acute SBO, NGT removed abdomen still distented but probable element of chronicity Surgery following NPO at this time JOSE L on CKD IV, Creatine is above baseline, likely from hypotension leading to renal hypoperfusion, trending down continue ivf Nephrology following hypErnatremia, mild, monitor and unchnaged, continue fluid HypOtension, related to SBP but has history of adrenal insuficiency IV solucortef, until eating then change to PO h/o orthostatic hypotension midodrine hold with high bps Possible PNA, no hypoxia got zosyn in ED, continue Ceftriaxone Schizoaffective disorder continue psych meds keep on ANC DVT prophylaxis- Lovenox Full code reason for continued hospitalization: monitoring tolerance of solids, hypernatremia without ivf Quality Stroke Does the patient have a stroke diagnosis?: No VTE Prior VTE?: No VTE Risk Level:: Surgical - moderate VTE Device Contraindication: N/A - Device Ordered VTE Drug Contraindication: N/A - Med Ordered
--- NOTE | 2025-02-21 13:20 | PM.EVENT ---
Event Note Date of Service: 02/21/25 Event Note: Patient seen in afternoon rounds, was informed by nurse that after clamping, the patient removed the NG tube. His abdomenal exam is unchanged from this morning, continues to endorse mild pain at rest, and to palpation. Mild distention noted. Denies nausea/vomiting at this time. We will order for trial of clear liquids, stressed the importance of slowly advancing diet. Patient agreeable. Time Spent With Patient Time: Total time managing care of this patient today ____ minutes.
[2025-02-21] MEDS: Enoxaparin Sodium 30 MG/0.3 ML SYRINGE SUBCUT (14:04)
--- NOTE | 2025-02-21 19:01 | P.PNNP_ITS ---
Subjective Subjective Date of Service: 02/21/25 Interval history: Events noted. All recent data reviewed. Serum creatinine improving Physical Exam 2 Vital Signs: Vital Signs: Last Vital Signs Temp 98.2 F 02/21/25 15:18 Pulse 78 02/21/25 16:23 Resp 20 02/21/25 15:18 BP 154/81 H 02/21/25 16:23 Pulse Ox 91 L 02/21/25 15:18 O2 Del Method Room Air 02/21/25 15:18 O2 Flow Rate 2 02/20/25 04:00 BMI result Body Mass Index 37.4 Const: General: no acute distress Eyes: EOM: EOMs intact bilaterally Neck: Neck: Yes supple Resp: Auscultation: diminished lung sounds Cardio: Rate: regular rate GI: Inspection: Yes distended Neuro: General: moves all extremities Objective Data Labs 02/21/25 05:31 02/21/25 05:31 Labs: Laboratory Results - last 24 hr 02/21/25 05:31 WBC 9.8 RBC 3.68 L Hgb 10.1 L Hct 32.6 L MCV 88.6 MCH 27.4 MCHC 31.0 RDW 14.2 Plt Count 191 MPV 9.6 Absolute Nucleated RBC 0.000 Nucleated RBC % (auto) 0.0 Sodium 147 H Potassium 4.1 Chloride 116 H Carbon Dioxide 23 Anion Gap 12 BUN 51 H Creatinine 2.80 H Estim Creat Clear Calc 27.7 Estimated GFR 23 Random Glucose 132 H Calcium 9.0 Microbiology Microbiology Results: Microbiology 02/19/25 09:23 Blood - Venous Blood Culture - Preliminary No growth after 48 hours. 02/19/25 09:23 Blood - Venous Blood Culture - Preliminary No growth after 48 hours. 02/19/25 21:37 Urine clean catch - Clean Catch Midstream Urine Culture - Final No growth. Procedures Date of Service Date of Service: 02/21/25 Assessment & Plan Assessment and plan (1) JOSE L (acute kidney injury): Status: Acute Plan Has CKD 3 at baseline; JOSE L due to tubular injury UO OK & no reason to suspect obstructive uropathy Serum creatinine better;On hydrocortisone No indication for renal replacement but needs more free water C/W current supp care; Labs AM Progress Note: Quality Stroke Does the patient have a stroke diagnosis?: No
[2025-02-21] MEDS: cefTRIAXone sodium 1 GM VIAL IVPUSH (20:41)
[2025-02-21] MEDS: clomiPRAMINE HCl 25 MG CAPSULE 100 MG PO (20:41)
[2025-02-21] MEDS: Melatonin 3 MG TABLET 6 MG PO (20:41)
[2025-02-21] MEDS: cloZAPine 100 MG TABLET 200 MG PO (20:42)
[2025-02-21] MEDS: Calcium Carbonate 750 MG TAB.CHEW PO (20:59)
[2025-02-22] MEDS: Hydrocortisone Sod Succ/PF 100 MG VIAL 50 MG IVPUSH (00:18)
[2025-02-22] MEDS: 0.9 % Sodium Chloride Flush 3 ML SYRINGE IVFLUSH ×2 (00:18→07:46)
[2025-02-22 03:16] VITALS: BP 144/78; PULSE 59; RESP 17; TEMP 36.4; O2SAT 95
[2025-02-22 05:39] LABS: Hematocrit 31.8 % (42.0-52.0); Hemoglobin 10.1 g/dl (14.0-18.0); Mean Corpuscular HGB Conc 31.8 g/dl (31.0-36.0); Mean Corpuscular Hemoglobin 27.3 pg (27.0-33.0); Mean Corpuscular Volume 85.9 fL (80.0-98.0); Mean Platelet Volume 9.4 fL (9.4-12.4); Platelet Count 178 X10*3/uL (160-400); Red Cell Distribution Width 13.9 % (11.0-16.0)
[2025-02-22 05:57] LABS: Anion Gap 12 (12-20); Blood Urea Nitrogen 41 mg/dL (9-16); Calcium 9.3 mg/dL (8.4-10.2); Carbon Dioxide 25 mmol/L (22-29); Chloride 113 mmol/L (96-108); Creatinine Clr Calc Pharmacy 33.7; Estimated Glomerular Filt Rate 28; Glucose Random 124 mg/dL (60-115); Potassium 3.4 mmol/L (3.3-5.1); Sodium 147 mmol/L (135-145)
[2025-02-22] MEDS: Omeprazole 40 MG CAPSULE.DR PO ×2 (06:14→16:04)
[2025-02-22] MEDS: Dextrose 5 % and Lactated Ring 1,000 ML 125 ML IVCONT (06:24)
[2025-02-22] MEDS: Gabapentin 100 MG CAPSULE 200 MG PO ×3 (07:47→20:05)
[2025-02-22] MEDS: Fludrocortisone Acetate 0.1 MG TABLET 0.2 MG PO (07:47)
[2025-02-22] MEDS: Tamsulosin HCL 0.4 MG CAPSULE PO (07:47)
[2025-02-22] MEDS: cloZAPine 100 MG TABLET PO (07:48)
[2025-02-22] MEDS: Dextrose 5 % 1,000 ML 80 ML IVCONT ×2 (07:48→20:04)
[2025-02-22] MEDS: Artificial Tears 15 ML DROPS 1 DROP EYE-BOTH ×2 (07:52→20:09)
[2025-02-22 08:32] VITALS: BP 162/79; PULSE 60; RESP 18; TEMP 36.1; O2SAT 93
--- NOTE | 2025-02-22 08:59 | P.PNGS_ITS ---
Subjective Subjective Date of Service: 02/22/25 <Ramon Ingram PA-C - Last Filed: 02/22/25 10:13> 02/22/25 <Bryson Pascual MD - Last Filed: 02/22/25 10:47> Patient reports: no new complaints <SONIA Rajan Last Filed: 02/22/25 10:13> Interval history: No acute changes overnight. Continues to have mild abdominal pain, bloating. Patient endorsing mild abdominal pain with clear liquids, denies nausea or vomiting. Endorses passing moderate amounts of flatus. No bowel movements since yesterday <Ramon Ingram PA-C - Last Filed: 02/22/25 10:13> Physical Exam 2 Vital Signs: Vital Signs: Last Vital Signs Temp 97.0 F 02/22/25 08:32 Pulse 60 02/22/25 08:32 Resp 18 02/22/25 08:32 BP 162/79 H 02/22/25 08:32 Pulse Ox 93 02/22/25 08:32 O2 Del Method Room Air 02/22/25 08:32 O2 Flow Rate 2 02/20/25 04:00 BMI result Body Mass Index 37.4 <Ramon Ingram PA-C - Last Filed: 02/22/25 10:13> Const: General: comfortable and no acute distress <SONIA Rajan Last Filed: 02/22/25 10:13> Orientation/consciousness: patient oriented x3 <Ramon Ingram PA-C - Last Filed: 02/22/25 10:13> Resp: Effort & Inspection: able to speak in complete sentences <SONIA Rajan Last Filed: 02/22/25 10:13> GI: Inspection: Yes distended (Mild upper) <SONIA Rajan Last Filed: 02/22/25 10:13> Palpation (GI): Soft to palpation, not firm, Tenderness to palpation present (GI) (Mild epigastric), no guarding and not rigid <SONIA Rajan Last Filed: 02/22/25 10:13> Percussion: Yes tympanic to percussion (Upper abdomen) <SONIA Rajan Last Filed: 02/22/25 10:13> Neuro: General: patient oriented x3 <Ramon Ingram PA-C - Last Filed: 02/22/25 10:13> Objective Data Active Medications Albuterol Sulfate (Albuterol Sulfate 90 Mcg 8 Gm Inhaler) 2 puff INHALE Q4H PRN PRN Reason: Wheezing Artificial Tears (Artificial Tears 15 Ml Drops) 1 drop EYE-BOTH BID [facility] Last Admin: 02/22/25 07:52 Dose: 1 drop Documented By: ANDRA Bisacodyl (Bisacodyl 10 Mg Supp.Rect) 10 mg [place] DAILY PRN PRN Reason: Constipation Calcitriol (Calcitriol 0.25 Mcg Capsule) 0.25 mcg PO TUFR [facility] Last Admin: 02/20/25 09:38 Dose: 0.25 mcg Documented By: CASTILLO Calcium Carbonate (Calcium Carbonate 750 Mg Tab.Chew) 750 mg PO Q4H PRN PRN Reason: Heartburn Last Admin: 02/21/25 20:59 Dose: 750 mg Documented By: VINNY Ceftriaxone Sodium (Ceftriaxone Sodium 1 Gm Vial) 1 gm IVPUSH BEDTIME [facility] Last Admin: 02/21/25 20:41 Dose: 1 gm Documented By: VINNY Clomipramine HCl (Clomipramine Hcl 25 Mg Capsule) 100 mg PO BEDTIME [facility] Last Admin: 02/21/25 20:41 Dose: 100 mg Documented By: VINNY Clozapine (Clozapine 100 Mg Tablet) 100 mg PO DAILY [facility] Last Admin: 02/22/25 07:48 Dose: 100 mg Documented By: ANDRA Clozapine (Clozapine 100 Mg Tablet) 200 mg PO BEDTIME [facility] Last Admin: 02/21/25 20:42 Dose: 200 mg Documented By: VINNY Enoxaparin Sodium (Enoxaparin Sodium 30 Mg/0.3 Ml Syringe) 30 mg SUBCUT Q24H [facility] Last Admin: 02/21/25 14:04 Dose: 30 mg Documented By: CASTILLO Fludrocortisone Acetate (Fludrocortisone Acetate 0.1 Mg Tablet) 0.2 mg PO DAILY [facility] Last Admin: 02/22/25 07:47 Dose: 0.2 mg Documented By: ANDRA Gabapentin (Gabapentin 100 Mg Capsule) 200 mg PO TID [facility] Last Admin: 02/22/25 07:47 Dose: 200 mg Documented By: ANDRA Hydrocortisone (Hydrocortisone 10 Mg Tablet) 10 mg PO TID [facility] Hydromorphone HCl (Hydromorphone Hcl 0.5 Mg/0.5 Ml Syringe) 0.5 mg IVPUSH Q3H PRN; Protocol PRN Reason: Pain, Severe (Pain Scale 7-10) Last Admin: 02/20/25 21:41 Dose: 0.5 mg Documented By: OSEI Acetaminophen (Ofirmev) 1,000 mg in 100 mls @ 400 mls/hr IV Q6H PRN PRN Reason: Pain, Mild (Pain Scale 1-3) Dextrose (D5w) 1,000 mls @ 80 mls/hr IVCONT .[id number] [facility] Last Admin: 02/22/25 07:48 Dose: 80 mls/hr Documented By: ANDRA Magnesium Hydroxide (Milk Of Magnesia 30 Ml Oral.Susp) 30 ml PO DAILY PRN PRN Reason: Constipation Melatonin (Melatonin 3 Mg Tablet) 6 mg PO BEDTIME PRN PRN Reason: Insomnia Last Admin: 02/21/25 20:41 Dose: 6 mg Documented By: VINNY Omeprazole (Omeprazole 40 Mg Capsule.) 40 mg PO BID@0630,1630 [facility] Last Admin: 02/22/25 06:14 Dose: 40 mg Documented By: CECIL Ondansetron HCl (Ondansetron Hcl 4 Mg/2 Ml Vial) 4 mg IVPUSH QID PRN PRN Reason: Nausea Last Admin: 02/20/25 18:52 Dose: 4 mg Documented By: OSEI Senna (Sennosides 8.6 Mg Tablet) 8.6 mg PO DAILY PRN PRN Reason: Constipation Sodium Chloride (0.9 % Sodium Chloride Flush 3 Ml Syringe) 3 ml IVFLUSH QSHIFT [facility] Last Admin: 02/22/25 07:46 Dose: 3 ml Documented By: ANDRA Tamsulosin HCl (Tamsulosin Hcl 0.4 Mg Capsule) 0.4 mg PO DAILY [facility] Last Admin: 02/22/25 07:47 Dose: 0.4 mg Documented By: ANDRA <Ramon Ingram PA-C - Last Filed: 02/22/25 10:13> Labs CBC & Chem 7: 02/22/25 05:11 02/22/25 05:11 <Ramon Ingram PA-C - Last Filed: 02/22/25 10:13> Labs: Laboratory Results - last 24 hr 02/22/25 05:11 MCV 85.9 MCH 27.3 MCHC 31.8 RDW 13.9 Plt Count 178 MPV 9.4 Absolute Nucleated RBC 0.000 Nucleated RBC % (auto) 0.0 Anion Gap 12 Estim Creat Clear Calc 33.7 Estimated GFR 28 Random Glucose 124 H Calcium 9.3 <Ramon Ingram PA-C - Last Filed: 02/22/25 10:13> Microbiology Microbiology Results: Microbiology 02/19/25 09:23 Blood Culture - Preliminary Blood - Venous No growth after 48 hours. 02/19/25 09:23 Blood Culture - Preliminary Blood - Venous No growth after 48 hours. 02/19/25 21:37 Urine Culture - Final Urine clean catch - Clean Catch Midstream No growth. <Ramon Ingram PA-C - Last Filed: 02/22/25 10:13> Procedures Date of Service Date of Service: 02/22/25 <Ramon Ingram PA-C - Last Filed: 02/22/25 10:13> 02/22/25 <Bryson Pascual MD - Last Filed: 02/22/25 10:47> Progress Note: A&P Assessment and plan (1) Partial small bowel obstruction: Status: Acute <Ramon Ingram PA-C - Last Filed: 02/22/25 10:13> Assessment and Plan: 69-year-old male admitted for partial SBO. Patient is improving today. Continues to have mild epigastric abdominal pain. He is passing moderate amounts of flatus, last bowel movement was yesterday. He is experiencing some abdominal pain on clear liquid diet, we will continue this for now. Abdomen is mildly distended this morning, tender to palpation in the epigastric area. Serial abdominal exams Continue clear liquid diet, if experiencing nausea, vomiting. Low threshold for NG tube if experiencing nausea or vomiting. Recommend ambulation Pain regimen as needed <Ramon Ingram PA-C - Last Filed: 02/22/25 10:13> 69-year-old male admitted for partial SBO. Patient is improving today. Continues to have mild epigastric abdominal pain. He is passing moderate amounts of flatus, last bowel movement was yesterday. He is experiencing some abdominal pain on clear liquid diet, we will continue this for now. Abdomen is mildly distended this morning, tender to palpation in the epigastric area. Serial abdominal exams Continue clear liquid diet, if experiencing nausea, vomiting. Low threshold for NG tube if experiencing nausea or vomiting. Recommend ambulation Pain regimen as needed Patient had another bowel movement which was moderate in size and soft in texture. We will slowly advance diet as tolerated. <Bryson Pascual MD - Last Filed: 02/22/25 10:47> Time Spent With Patient Time: Total time managing care of this patient today ____ minutes. <Ramon Ingram PA-C - Last Filed: 02/22/25 10:13> Quality Stroke Does the patient have a stroke diagnosis?: No <Ramon Ingram PA-C - Last Filed: 02/22/25 10:13> VTE Prior VTE?: No <Ramon Ingram PA-C - Last Filed: 02/22/25 10:13> VTE Risk Level:: Surgical - moderate <Ramon Ingram PA-C - Last Filed: 02/22/25 10:13> VTE Device Contraindication: N/A - Device Ordered <Ramon Ingram PA-C - Last Filed: 02/22/25 10:13> VTE Drug Contraindication: N/A - Med Ordered <Ramon Ingram PA-C - Last Filed: 02/22/25 10:13>
--- NOTE | 2025-02-22 09:04 | P.PNIM_ITS ---
Subjective Subjective Date of Service: 02/22/25 Interval History: f/u sbo pt reporting large bm NGT removed yesterday, and started on liquid idet denies pain Physical Exam 2 Vital Signs: Vital Signs: Last Vital Signs Temp 97.0 F 02/22/25 08:32 Pulse 60 02/22/25 08:32 Resp 18 02/22/25 08:32 BP 162/79 H 02/22/25 08:32 Pulse Ox 93 02/22/25 08:32 O2 Del Method Room Air 02/22/25 08:32 O2 Flow Rate 2 02/20/25 04:00 BMI result Body Mass Index 37.4 Const: Other: General: oriented to lisa Resp: CTA bilateral CVS: S1,S2,RRR GI: some BS, NT, + distention Skin: No rash Neuro: motor grossly intact Psych: flat Objective Data Active Medications Albuterol Sulfate (Albuterol Sulfate 90 Mcg 8 Gm Inhaler) 2 puff INHALE Q4H PRN PRN Reason: Wheezing Artificial Tears (Artificial Tears 15 Ml Drops) 1 drop EYE-BOTH BID [facility] Last Admin: 02/22/25 07:52 Dose: 1 drop Documented By: ANDRA Bisacodyl (Bisacodyl 10 Mg Supp.Rect) 10 mg [place] DAILY PRN PRN Reason: Constipation Calcitriol (Calcitriol 0.25 Mcg Capsule) 0.25 mcg PO TUFR [facility] Last Admin: 02/20/25 09:38 Dose: 0.25 mcg Documented By: DABShraddha Calcium Carbonate (Calcium Carbonate 750 Mg Tab.Chew) 750 mg PO Q4H PRN PRN Reason: Heartburn Last Admin: 02/21/25 20:59 Dose: 750 mg Documented By: VINNY Ceftriaxone Sodium (Ceftriaxone Sodium 1 Gm Vial) 1 gm IVPUSH BEDTIME [facility] Last Admin: 02/21/25 20:41 Dose: 1 gm Documented By: VINNY Clomipramine HCl (Clomipramine Hcl 25 Mg Capsule) 100 mg PO BEDTIME [facility] Last Admin: 02/21/25 20:41 Dose: 100 mg Documented By: VINNY Clozapine (Clozapine 100 Mg Tablet) 100 mg PO DAILY [facility] Last Admin: 02/22/25 07:48 Dose: 100 mg Documented By: ANDRA Clozapine (Clozapine 100 Mg Tablet) 200 mg PO BEDTIME [facility] Last Admin: 02/21/25 20:42 Dose: 200 mg Documented By: VINNY Enoxaparin Sodium (Enoxaparin Sodium 30 Mg/0.3 Ml Syringe) 30 mg SUBCUT Q24H [facility] Last Admin: 02/21/25 14:04 Dose: 30 mg Documented By: DABShraddha Fludrocortisone Acetate (Fludrocortisone Acetate 0.1 Mg Tablet) 0.2 mg PO DAILY [facility] Last Admin: 02/22/25 07:47 Dose: 0.2 mg Documented By: ANDRA Gabapentin (Gabapentin 100 Mg Capsule) 200 mg PO TID [facility] Last Admin: 02/22/25 07:47 Dose: 200 mg Documented By: ANDRA Hydrocortisone (Hydrocortisone 10 Mg Tablet) 10 mg PO TID [facility] Hydromorphone HCl (Hydromorphone Hcl 0.5 Mg/0.5 Ml Syringe) 0.5 mg IVPUSH Q3H PRN; Protocol PRN Reason: Pain, Severe (Pain Scale 7-10) Last Admin: 02/20/25 21:41 Dose: 0.5 mg Documented By: OSEI Acetaminophen (Ofirmev) 1,000 mg in 100 mls @ 400 mls/hr IV Q6H PRN PRN Reason: Pain, Mild (Pain Scale 1-3) Dextrose (D5w) 1,000 mls @ 80 mls/hr IVCONT .[id number] [facility] Last Admin: 02/22/25 07:48 Dose: 80 mls/hr Documented By: ANDRA Magnesium Hydroxide (Milk Of Magnesia 30 Ml Oral.Susp) 30 ml PO DAILY PRN PRN Reason: Constipation Melatonin (Melatonin 3 Mg Tablet) 6 mg PO BEDTIME PRN PRN Reason: Insomnia Last Admin: 02/21/25 20:41 Dose: 6 mg Documented By: VINNY Omeprazole (Omeprazole 40 Mg Capsule.Dr) 40 mg PO BID@0630,1630 [facility] Last Admin: 02/22/25 06:14 Dose: 40 mg Documented By: CECIL Ondansetron HCl (Ondansetron Hcl 4 Mg/2 Ml Vial) 4 mg IVPUSH QID PRN PRN Reason: Nausea Last Admin: 02/20/25 18:52 Dose: 4 mg Documented By: HO.BOURQC Senna (Sennosides 8.6 Mg Tablet) 8.6 mg PO DAILY PRN PRN Reason: Constipation Sodium Chloride (0.9 % Sodium Chloride Flush 3 Ml Syringe) 3 ml IVFLUSH QSHIFT [facility] Last Admin: 02/22/25 07:46 Dose: 3 ml Documented By: ANDRA Tamsulosin HCl (Tamsulosin Hcl 0.4 Mg Capsule) 0.4 mg PO DAILY [facility] Last Admin: 02/22/25 07:47 Dose: 0.4 mg Documented By: ANDRA Labs 02/22/25 05:11 02/22/25 05:11 Labs: Laboratory Results - last 24 hr 02/22/25 05:11 MCV 85.9 MCH 27.3 MCHC 31.8 RDW 13.9 Plt Count 178 MPV 9.4 Absolute Nucleated RBC 0.000 Nucleated RBC % (auto) 0.0 Anion Gap 12 Estim Creat Clear Calc 33.7 Estimated GFR 28 Random Glucose 124 H Calcium 9.3 Microbiology Microbiology Results: Microbiology 02/19/25 09:23 Blood Culture - Preliminary Blood - Venous No growth after 48 hours. 02/19/25 09:23 Blood Culture - Preliminary Blood - Venous No growth after 48 hours. 02/19/25 21:37 Urine Culture - Final Urine clean catch - Clean Catch Midstream No growth. Assessment and Plan (1) Complete small bowel obstruction: Status: Acute (2) JOSE L (acute kidney injury): Status: Acute Plan 69 year old male with history of TBI, BPH, orthostatic hypotension, chronic hepatitis C on epclusa, hld, epilepsy, secondary hyperparathyroidism of renal origin, GERD, schizoaffective disorder, urinary retention, osteoporosis, gait/mobility impairment, ADHD, and CKD stage 3 here with acute small deann obstruction associated with Hypotension Acute SBO, seems clinically resolved abdomen still distented but probable element of chronicity Surgery following, further management per surgery JOSE L on CKD IV, Creatine is above baseline, likely from hypotension leading to renal hypoperfusion, trending down continue ivf Nephrology following hypErnatremia, mild, monitor and unchnaged, continue fluid but change to D5 HypOtension, related to SBP but has history of adrenal insuficiency IV solucortef as stress dosing, until eating then change to PO hydrocortisone today h/o orthostatic hypotension midodrine hold with high bps Possible PNA, no hypoxia got zosyn in ED, continue Ceftriaxone Leukocytosis, likely related to stress dose steroid Schizoaffective disorder continue psych meds keep on ANC DVT prophylaxis- Lovenox Full code reason for continued hospitalization: monitoring tolerance of solids, hypernatremia without ivf Quality Stroke Does the patient have a stroke diagnosis?: No VTE Prior VTE?: No VTE Risk Level:: Surgical - moderate VTE Device Contraindication: N/A - Device Ordered VTE Drug Contraindication: N/A - Med Ordered
[2025-02-22] MEDS: Hydrocortisone 10 MG TABLET PO ×3 (09:22→20:05)
[2025-02-22] MEDS: Calcium Carbonate 750 MG TAB.CHEW PO ×2 (09:22→14:19)
[2025-02-22 11:59] VITALS: BP 189/81; PULSE 70; RESP 18; TEMP 36.1; O2SAT 93
[2025-02-22] MEDS: Acetaminophen 325 MG TABLET 650 MG PO (12:40)
[2025-02-22] MEDS: Enoxaparin Sodium 30 MG/0.3 ML SYRINGE SUBCUT (14:09)
[2025-02-22 15:20] VITALS: BP 158/75; PULSE 76; RESP 18; TEMP 36.6; O2SAT 97
--- NOTE | 2025-02-22 16:35 | P.PNNP_ITS ---
Subjective Subjective Date of Service: 02/22/25 Interval history: f/u sbo pt reporting large bm NGT removed yesterday, and started on liquid idet denies pain Physical Exam 2 Vital Signs: Vital Signs: Last Vital Signs Temp 97.9 F 02/22/25 15:20 Pulse 76 02/22/25 15:20 Resp 18 02/22/25 15:20 BP 158/75 H 02/22/25 15:20 Pulse Ox 97 02/22/25 15:20 O2 Del Method Room Air 02/22/25 15:20 O2 Flow Rate 2 02/20/25 04:00 BMI result Body Mass Index 37.4 Const: General: no acute distress Eyes: EOM: EOMs intact bilaterally Neck: Neck: Yes supple Resp: Auscultation: diminished lung sounds Cardio: Rate: regular rate GI: Inspection: Yes distended Palpation (GI): Soft to palpation Neuro: General: moves all extremities Objective Data Labs 02/22/25 05:11 02/22/25 05:11 Labs: Laboratory Results - last 24 hr 02/22/25 05:11 WBC 12.0 H RBC 3.70 L Hgb 10.1 L Hct 31.8 L MCV 85.9 MCH 27.3 MCHC 31.8 RDW 13.9 Plt Count 178 MPV 9.4 Absolute Nucleated RBC 0.000 Nucleated RBC % (auto) 0.0 Sodium 147 H Potassium 3.4 Chloride 113 H Carbon Dioxide 25 Anion Gap 12 BUN 41 H Creatinine 2.30 H Estim Creat Clear Calc 33.7 Estimated GFR 28 Random Glucose 124 H Calcium 9.3 Microbiology Microbiology Results: Microbiology 02/19/25 09:23 Blood - Venous Blood Culture - Preliminary No growth after 48 hours. 02/19/25 09:23 Blood - Venous Blood Culture - Preliminary No growth after 48 hours. 02/19/25 21:37 Urine clean catch - Clean Catch Midstream Urine Culture - Final No growth. Procedures Date of Service Date of Service: 02/22/25 Assessment & Plan Assessment and plan (1) JOSE L (acute kidney injury): Status: Acute Plan Has CKD 3 at baseline; JOSE L due to tubular injury NOobstructive uropathy Serum creatinine improving ;On hydrocortisone No indication for renal replacement but needs more free water C/W current supp care; Increase free water intake to correct hypernatremia Time Spent With Patient Time: Total time managing care of this patient today ____ minutes. Progress Note: Quality Stroke Does the patient have a stroke diagnosis?: No
[2025-02-22 20:00] VITALS: BP 162/83; PULSE 67; RESP 18; TEMP 36.2; O2SAT 96
[2025-02-22] MEDS: cloZAPine 100 MG TABLET 200 MG PO (20:05)
[2025-02-22] MEDS: clomiPRAMINE HCl 25 MG CAPSULE 100 MG PO (20:05)
[2025-02-22] MEDS: cefTRIAXone sodium 1 GM VIAL IVPUSH (20:05)
[2025-02-22] MEDS: Melatonin 3 MG TABLET 6 MG PO (20:05)
[2025-02-22 23:19] VITALS: BP 150/80; PULSE 62; RESP 18; TEMP 36.5; O2SAT 92
[2025-02-23 03:34] VITALS: BP 159/89; PULSE 58; RESP 18; TEMP 36.3; O2SAT 92
[2025-02-23] MEDS: Omeprazole 40 MG CAPSULE.DR PO ×2 (05:43→15:39)
[2025-02-23] MEDS: Acetaminophen 325 MG TABLET 650 MG PO (05:44)
[2025-02-23 06:35] LABS: Hematocrit 36.1 % (42.0-52.0); Hemoglobin 11.4 g/dl (14.0-18.0); Mean Corpuscular HGB Conc 31.6 g/dl (31.0-36.0); Mean Corpuscular Hemoglobin 26.9 pg (27.0-33.0); Mean Corpuscular Volume 85.1 fL (80.0-98.0); Mean Platelet Volume 9.5 fL (9.4-12.4); Platelet Count 200 X10*3/uL (160-400); Red Blood Count 4.24 X10*6/uL (4.60-5.80); Red Cell Distribution Width 13.2 % (11.0-16.0); White Blood Count 13.1 X10*3/uL (4.8-10.8)
[2025-02-23 06:37] LABS: Anion Gap 13 (12-20); Blood Urea Nitrogen 33 mg/dL (9-16); Calcium 9.3 mg/dL (8.4-10.2); Carbon Dioxide 27 mmol/L (22-29); Chloride 108 mmol/L (96-108); Creatinine Clr Calc Pharmacy 36.4; Estimated Glomerular Filt Rate 31; Glucose Random 90 mg/dL (60-115); Potassium 3.1 mmol/L (3.3-5.1); Sodium 145 mmol/L (135-145)
--- NOTE | 2025-02-23 07:09 | P.CDIM_ITS ---
PROVIDER RESPONSE TEXT: To clarify, the appropriate diagnosis supported by the clinical indicators: CKD stage 3b QUERY TEXT: PHYSICIAN'S DOCUMENTATION REQUEST Date of Query: 02/22/2025 12:36 PM EDT Patient Name: Lamin Haddad Admit Date: 02/19/2025 Dear Ronan Stevens MD, A review of the medical record indicates additional documentation may be needed. Please review below and update the documentation accordingly. Clinical Indicators: Documentation states patient has JOSE L on CKD stage IV and CKD stage 3 creatinine 2.3 eGFR 28 Please clarify which of the following accurately represents the patient's renal status: CKD stage 3a CKD stage 3b CKD stage IV Other (explain) Clinically unable to determine (explain) Thank you, Bryanna Miller RN Use of terms such as suspected, likely, concern for, or probable (associated with a specific diagnosi s that is being evaluated, monitored, or treated as if it exists) are acceptable and can be coded in the inpatient se tting, when documented at the time of discharge. Please use your independent medical judgment in providing your response. THIS QUERY IS PART OF THE PERMANENT MEDICAL RECORD
[2025-02-23 07:36] VITALS: BP 187/86; PULSE 80; RESP 18; TEMP 37.1; O2SAT 97
--- NOTE | 2025-02-23 07:45 | PM.PNGS ---
Subjective Subjective Date of Service: 02/23/25 <Ramon Ingram PA-C - Last Filed: 02/23/25 08:15> 02/23/25 <Bryson Pascual MD - Last Filed: 02/23/25 08:14> Patient reports: no new complaints, flatus and bowel movement <SONIA Rajan Last Filed: 02/23/25 08:15> Interval history: patient resting comfortably in bed. Continues to experience mild pain and nausea with full liquid diet. Pain well controlled at rest. endorses small BM this morning, passing gas. <Ramon Ingram PA-C - Last Filed: 02/23/25 08:15> Physical Exam Vital Signs: Vital Signs: Last Vital Signs Temp 98.7 F 02/23/25 07:36 Pulse 80 02/23/25 07:36 Resp 18 02/23/25 07:36 BP 187/86 H 02/23/25 07:36 Pulse Ox 97 02/23/25 07:36 O2 Del Method Room Air 02/23/25 07:36 O2 Flow Rate 2 02/20/25 04:00 BMI result Body Mass Index 37.4 <Ramon Ingram PA-C - Last Filed: 02/23/25 08:15> Const: General: comfortable and no acute distress <SONIA Rajan Last Filed: 02/23/25 08:15> Orientation/consciousness: patient oriented x3 <SONIA Rajan Last Filed: 02/23/25 08:15> Resp: Effort & Inspection: able to speak in complete sentences <SONIA Rajan Last Filed: 02/23/25 08:15> GI: Inspection: Yes distended (mild), Yes obesity and Yes scar (RUQ healed surgical scar) <SONIA Rajan Last Filed: 02/23/25 08:15> Palpation (GI): Soft to palpation, not firm, nontender, no guarding and not rigid <SONIA Rajan Last Filed: 02/23/25 08:15> Neuro: General: patient oriented x3 <SONIA Rajan Last Filed: 02/23/25 08:15> Objective Data Active Medications Acetaminophen (Acetaminophen 325 Mg Tablet) 650 mg PO Q6H PRN PRN Reason: Pain, Mild 1-3,fever,headache Last Admin: 02/23/25 05:44 Dose: 650 mg Documented By: DEX Albuterol Sulfate (Albuterol Sulfate 90 Mcg 8 Gm Inhaler) 2 puff INHALE Q4H PRN PRN Reason: Wheezing Artificial Tears (Artificial Tears 15 Ml Drops) 1 drop EYE-BOTH BID [facility] Last Admin: 02/22/25 20:09 Dose: 1 drop Documented By: VINNY Bisacodyl (Bisacodyl 10 Mg Supp.Rect) 10 mg ID DAILY PRN PRN Reason: Constipation Calcitriol (Calcitriol 0.25 Mcg Capsule) 0.25 mcg PO TUFR [facility] Last Admin: 02/20/25 09:38 Dose: 0.25 mcg Documented By: DABShraddha Calcium Carbonate (Calcium Carbonate 750 Mg Tab.Chew) 750 mg PO Q4H PRN PRN Reason: Heartburn Last Admin: 02/22/25 14:19 Dose: 750 mg Documented By: ANDRA Ceftriaxone Sodium (Ceftriaxone Sodium 1 Gm Vial) 1 gm IVPUSH BEDTIME [facility] Last Admin: 02/22/25 20:05 Dose: 1 gm Documented By: VINNY Clomipramine HCl (Clomipramine Hcl 25 Mg Capsule) 100 mg PO BEDTIME [facility] Last Admin: 02/22/25 20:05 Dose: 100 mg Documented By: VINNY Clozapine (Clozapine 100 Mg Tablet) 100 mg PO DAILY [facility] Last Admin: 02/22/25 07:48 Dose: 100 mg Documented By: ANDRA Clozapine (Clozapine 100 Mg Tablet) 200 mg PO BEDTIME [facility] Last Admin: 02/22/25 20:05 Dose: 200 mg Documented By: VINNY Enoxaparin Sodium (Enoxaparin Sodium 30 Mg/0.3 Ml Syringe) 30 mg SUBCUT Q24H [facility] Last Admin: 02/22/25 14:09 Dose: 30 mg Documented By: ANDRA Fludrocortisone Acetate (Fludrocortisone Acetate 0.1 Mg Tablet) 0.2 mg PO DAILY [facility] Last Admin: 02/22/25 07:47 Dose: 0.2 mg Documented By: ANDRA Gabapentin (Gabapentin 100 Mg Capsule) 200 mg PO TID [facility] Last Admin: 02/22/25 20:05 Dose: 200 mg Documented By: VINNY Hydrocortisone (Hydrocortisone 10 Mg Tablet) 10 mg PO TID [facility] Last Admin: 02/22/25 20:05 Dose: 10 mg Documented By: VINNY Hydromorphone HCl (Hydromorphone Hcl 0.5 Mg/0.5 Ml Syringe) 0.5 mg IVPUSH Q3H PRN; Protocol PRN Reason: Pain, Severe (Pain Scale 7-10) Last Admin: 02/20/25 21:41 Dose: 0.5 mg Documented By: OSEI Dextrose (D5w) 1,000 mls @ 80 mls/hr IVCONT .[id number] [facility] Last Admin: 02/22/25 20:04 Dose: 80 mls/hr Documented By: VINNY Magnesium Hydroxide (Milk Of Magnesia 30 Ml Oral.Susp) 30 ml PO DAILY PRN PRN Reason: Constipation Melatonin (Melatonin 3 Mg Tablet) 6 mg PO BEDTIME PRN PRN Reason: Insomnia Last Admin: 02/22/25 20:05 Dose: 6 mg Documented By: VINNY Omeprazole (Omeprazole 40 Mg Capsule.) 40 mg PO BID@0630,1630 [facility] Last Admin: 02/23/25 05:43 Dose: 40 mg Documented By: DEX Ondansetron HCl (Ondansetron Hcl 4 Mg/2 Ml Vial) 4 mg IVPUSH QID PRN PRN Reason: Nausea Last Admin: 02/20/25 18:52 Dose: 4 mg Documented By: OSEI Senna (Sennosides 8.6 Mg Tablet) 8.6 mg PO DAILY PRN PRN Reason: Constipation Sodium Chloride (0.9 % Sodium Chloride Flush 3 Ml Syringe) 3 ml IVFLUSH QSHIFT [facility] Last Admin: 02/23/25 07:05 Dose: Not Given Documented By: MARIPOSA Non-Admin Reason: Previously Administered Tamsulosin HCl (Tamsulosin Hcl 0.4 Mg Capsule) 0.4 mg PO DAILY [facility] Last Admin: 02/22/25 07:47 Dose: 0.4 mg Documented By: ANDRA <Ramon Ingram PA-C - Last Filed: 02/23/25 08:15> Labs CBC & Chem 7: 02/23/25 05:57 02/23/25 05:57 <Ramon Ingram PA-C - Last Filed: 02/23/25 08:15> Labs: Laboratory Results - last 24 hr 02/23/25 05:57 MCV 85.1 MCH 26.9 L MCHC 31.6 RDW 13.2 Plt Count 200 MPV 9.5 Absolute Nucleated RBC 0.000 Nucleated RBC % (auto) 0.0 Anion Gap 13 Estim Creat Clear Calc 36.4 Estimated GFR 31 Random Glucose 90 Calcium 9.3 <Ramon Ingram PA-C - Last Filed: 02/23/25 08:15> Procedures Date of Service Date of Service: 02/23/25 <Ramon Ingram PA-C - Last Filed: 02/23/25 08:15> 02/23/25 <Bryson Pascual MD - Last Filed: 02/23/25 08:14> Progress Note: A&P Assessment and plan (1) Partial small bowel obstruction: Status: Acute <Ramon Ingram PA-C - Last Filed: 02/23/25 08:15> Assessment and Plan: 69 year old male admitted for partial SBO. Patient improving today. Continues to experience mild pain and nausea with full liquid diet. He has had multiple small bowel movements, passing moderate amounts of flatus. He is ambulating to the bathroom and within the room. Abdominal exam improved today, mild distention present, improved this morning compared to yesterday. Patient found to be hypertensive this morning, will defer to hospitalist recommendation for management. No current plan for surgical intervention. Will continue to monitor. recommend ambulation as tolerated Recommend reducing narcotic load Will trial regular diet, if tolerating, will plan for discharge management of HTN as per hospitalist. Patient seen and examined independently and I agree with the above assessment. Patient is eager to go home although he has not started with regular diet yet. We will start with a regular diet today. If well tolerated without increased abdominal pain, nausea or vomiting we will plan on discharge back to [facility]. <Ramon Ingram PA-C - Last Filed: 02/23/25 08:15> 69 year old male admitted for partial SBO. Patient improving today. Continues to experience mild pain and nausea with full liquid diet. He has had multiple small bowel movements, passing moderate amounts of flatus. He is ambulating to the bathroom and within the room. Abdominal exam improved today, mild distention present, improved this morning compared to yesterday. Patient found to be hypertensive this morning, will defer to hospitalist recommendation for management. No current plan for surgical intervention. Will continue to monitor. recommend ambulation as tolerated Recommend reducing narcotic load continue with full liquid diet management of HTN as per hospitalist. Patient seen and examined independently and I agree with the above assessment. Patient is eager to go home although he has not started with regular diet yet. We will start with a regular diet today. If well tolerated without increased abdominal pain, nausea or vomiting we will plan on discharge back to [facility]. <Bryson Pascual MD - Last Filed: 02/23/25 08:14> Time Spent With Patient Time: Total time managing care of this patient today ____ minutes. <Ramon Ingram PA-C - Last Filed: 02/23/25 08:15> Quality Stroke Does the patient have a stroke diagnosis?: No <Ramon Ingram PA-C - Last Filed: 02/23/25 08:15> VTE Prior VTE?: No <Ramon Ingram PA-C - Last Filed: 02/23/25 08:15> VTE Risk Level:: Surgical - moderate <Ramon Ingram PA-C - Last Filed: 02/23/25 08:15> VTE Device Contraindication: N/A - Device Ordered <Ramon Ingram PA-C - Last Filed: 02/23/25 08:15> VTE Drug Contraindication: N/A - Med Ordered <Ramon Ingram PA-C - Last Filed: 02/23/25 08:15>
[2025-02-23] MEDS: Gabapentin 100 MG CAPSULE 200 MG PO ×3 (07:59→20:06)
[2025-02-23] MEDS: Hydrocortisone 10 MG TABLET PO ×3 (07:59→20:07)
[2025-02-23] MEDS: cloZAPine 100 MG TABLET PO (07:59)
[2025-02-23] MEDS: Tamsulosin HCL 0.4 MG CAPSULE PO (07:59)
[2025-02-23] MEDS: Dextrose 5 % 1,000 ML 80 ML IVCONT ×2 (07:59→21:00)
[2025-02-23] MEDS: Artificial Tears 15 ML DROPS 1 DROP EYE-BOTH ×2 (07:59→21:00)
[2025-02-23] MEDS: calcitrioL 0.25 MCG CAPSULE PO (08:04)
--- NOTE | 2025-02-23 08:07 | PC.NURSE ---
Addendum entered by Brayden Barrera RN 02/23/25 13:24: informed of pt's elevated bp this afternoon Original Note: informed of pt's elevated bp this AM
--- NOTE | 2025-02-23 09:15 | HO.PM.IMPN ---
Subjective Subjective Date of Service: 02/23/25 Interval History: f/u sbo, tolerating diet Physical Exam Vital Signs: Vital Signs: Last Vital Signs Temp 98.7 F 02/23/25 07:36 Pulse 80 02/23/25 07:36 Resp 18 02/23/25 07:36 BP 187/86 H 02/23/25 07:36 Pulse Ox 97 02/23/25 07:36 O2 Del Method Room Air 02/23/25 07:36 O2 Flow Rate 2 02/20/25 04:00 BMI result Body Mass Index 37.4 Const: Other: General: oriented to lisa Resp: CTA bilateral CVS: S1,S2,RRR GI: some BS, NT, + distention Skin: No rash Neuro: motor grossly intact Psych: flat Objective Data Active Medications Acetaminophen (Acetaminophen 325 Mg Tablet) 650 mg PO Q6H PRN PRN Reason: Pain, Mild 1-3,fever,headache Last Admin: 02/23/25 05:44 Dose: 650 mg Documented By: DEX Albuterol Sulfate (Albuterol Sulfate 90 Mcg 8 Gm Inhaler) 2 puff INHALE Q4H PRN PRN Reason: Wheezing Artificial Tears (Artificial Tears 15 Ml Drops) 1 drop EYE-BOTH BID [facility] Last Admin: 02/23/25 07:59 Dose: 1 drop Documented By: MARIPOSA Bisacodyl (Bisacodyl 10 Mg Supp.Rect) 10 mg MO DAILY PRN PRN Reason: Constipation Calcitriol (Calcitriol 0.25 Mcg Capsule) 0.25 mcg PO TUFR [facility] Last Admin: 02/23/25 08:04 Dose: 0.25 mcg Documented By: MARIPOSA Calcium Carbonate (Calcium Carbonate 750 Mg Tab.Chew) 750 mg PO Q4H PRN PRN Reason: Heartburn Last Admin: 02/22/25 14:19 Dose: 750 mg Documented By: ANDRA Ceftriaxone Sodium (Ceftriaxone Sodium 1 Gm Vial) 1 gm IVPUSH BEDTIME [facility] Last Admin: 02/22/25 20:05 Dose: 1 gm Documented By: VINNY Clomipramine HCl (Clomipramine Hcl 25 Mg Capsule) 100 mg PO BEDTIME [facility] Last Admin: 02/22/25 20:05 Dose: 100 mg Documented By: VINNY Clozapine (Clozapine 100 Mg Tablet) 100 mg PO DAILY [facility] Last Admin: 02/23/25 07:59 Dose: 100 mg Documented By: MARIPOSA Clozapine (Clozapine 100 Mg Tablet) 200 mg PO BEDTIME [facility] Last Admin: 02/22/25 20:05 Dose: 200 mg Documented By: VINNY Enoxaparin Sodium (Enoxaparin Sodium 30 Mg/0.3 Ml Syringe) 30 mg SUBCUT Q24H [facility] Last Admin: 02/22/25 14:09 Dose: 30 mg Documented By: ANDRA Fludrocortisone Acetate (Fludrocortisone Acetate 0.1 Mg Tablet) 0.2 mg PO DAILY [facility] Last Admin: 02/23/25 08:00 Dose: Not Given Documented By: MARIPOSA Non-Admin Reason: hold per md Gabapentin (Gabapentin 100 Mg Capsule) 200 mg PO TID [facility] Last Admin: 02/23/25 07:59 Dose: 200 mg Documented By: MARIPOSA Hydrocortisone (Hydrocortisone 10 Mg Tablet) 10 mg PO TID [facility] Last Admin: 02/23/25 07:59 Dose: 10 mg Documented By: MARIPOSA Hydromorphone HCl (Hydromorphone Hcl 0.5 Mg/0.5 Ml Syringe) 0.5 mg IVPUSH Q3H PRN; Protocol PRN Reason: Pain, Severe (Pain Scale 7-10) Last Admin: 02/20/25 21:41 Dose: 0.5 mg Documented By: OSEI Dextrose (D5w) 1,000 mls @ 80 mls/hr IVCONT .[id number] [facility] Last Admin: 02/23/25 07:59 Dose: 80 mls/hr Documented By: MARIPOSA Magnesium Hydroxide (Milk Of Magnesia 30 Ml Oral.Susp) 30 ml PO DAILY PRN PRN Reason: Constipation Melatonin (Melatonin 3 Mg Tablet) 6 mg PO BEDTIME PRN PRN Reason: Insomnia Last Admin: 02/22/25 20:05 Dose: 6 mg Documented By: VINNY Omeprazole (Omeprazole 40 Mg Capsule.) 40 mg PO BID@0630,1630 [facility] Last Admin: 02/23/25 05:43 Dose: 40 mg Documented By: DEX Ondansetron HCl (Ondansetron Hcl 4 Mg/2 Ml Vial) 4 mg IVPUSH QID PRN PRN Reason: Nausea Last Admin: 02/20/25 18:52 Dose: 4 mg Documented By: OSEI Senna (Sennosides 8.6 Mg Tablet) 8.6 mg PO DAILY PRN PRN Reason: Constipation Sodium Chloride (0.9 % Sodium Chloride Flush 3 Ml Syringe) 3 ml IVFLUSH QSHIFT [facility] Last Admin: 02/23/25 07:05 Dose: Not Given Documented By: MARIPOSA Non-Admin Reason: Previously Administered Tamsulosin HCl (Tamsulosin Hcl 0.4 Mg Capsule) 0.4 mg PO DAILY [facility] Last Admin: 02/23/25 07:59 Dose: 0.4 mg Documented By: MARIPOSA Labs 02/23/25 05:57 02/23/25 05:57 Labs: Laboratory Results - last 24 hr 02/23/25 05:57 MCV 85.1 MCH 26.9 L MCHC 31.6 RDW 13.2 Plt Count 200 MPV 9.5 Absolute Nucleated RBC 0.000 Nucleated RBC % (auto) 0.0 Anion Gap 13 Estim Creat Clear Calc 36.4 Estimated GFR 31 Random Glucose 90 Calcium 9.3 Assessment and Plan (1) Complete small bowel obstruction: Status: Acute (2) JOSE L (acute kidney injury): Status: Acute Plan 69 year old male with history of TBI, BPH, orthostatic hypotension, chronic hepatitis C on epclusa, hld, epilepsy, secondary hyperparathyroidism of renal origin, GERD, schizoaffective disorder, urinary retention, osteoporosis, gait/mobility impairment, ADHD, and CKD stage 3 here with acute small deann obstruction associated with Hypotension Acute SBO, seems clinically resolved, tolerating regular diet abdomen still distented but probablechronic Surgery following, further management per surgery JOSE L on CKD IV, Creatine is above baseline, likely from hypOtension leading to renal hypoperfusion, trending down continue ivf Nephrology following hypErnatremia, mild, resolved. HypOtension, related to SBP but has history of adrenal insuficiency continue oral hydrocotisone h/o orthostatic hypotension midodrine hold with high bps HTN start Norvasc Possible PNA, no hypoxia got zosyn in ED, continue Ceftriaxone Leukocytosis, likely related to stress dose steroid Schizoaffective disorder continue psych meds keep on ANC DVT prophylaxis- Lovenox Full code reason for continued hospitalization: monitoring tolerance of solids, hypernatremia without ivf Quality Stroke Does the patient have a stroke diagnosis?: No VTE Prior VTE?: No VTE Risk Level:: Surgical - moderate VTE Device Contraindication: N/A - Device Ordered VTE Drug Contraindication: N/A - Med Ordered
[2025-02-23] MEDS: amLODIPine Besylate 5 MG TABLET PO (10:21)
[2025-02-23 12:00] VITALS: BP 184/89; PULSE 85; RESP 18; TEMP 36.9; O2SAT 96
--- NOTE | 2025-02-23 13:42 | P.PNNP_ITS ---
Subjective Subjective Date of Service: 02/23/25 Interval history: Events noted s/p sbo, tolerating diet Physical Exam 2 Vital Signs: Vital Signs: Last Vital Signs Temp 98.4 F 02/23/25 12:00 Pulse 85 02/23/25 12:00 Resp 18 02/23/25 12:00 BP 184/89 H 02/23/25 12:00 Pulse Ox 96 02/23/25 12:00 O2 Del Method Room Air 02/23/25 12:00 O2 Flow Rate 2 02/20/25 04:00 BMI result Body Mass Index 37.4 Const: General: no acute distress Eyes: EOM: EOMs intact bilaterally Neck: Neck: Yes supple Resp: Auscultation: diminished lung sounds Cardio: Rate: regular rate GI: Inspection: Yes distended Palpation (GI): Soft to palpation Neuro: General: moves all extremities Objective Data Labs 02/23/25 05:57 02/23/25 05:57 Labs: Laboratory Results - last 24 hr 02/23/25 05:57 WBC 13.1 H RBC 4.24 L Hgb 11.4 L Hct 36.1 L MCV 85.1 MCH 26.9 L MCHC 31.6 RDW 13.2 Plt Count 200 MPV 9.5 Absolute Nucleated RBC 0.000 Nucleated RBC % (auto) 0.0 Sodium 145 Potassium 3.1 L Chloride 108 Carbon Dioxide 27 Anion Gap 13 BUN 33 H Creatinine 2.13 H Estim Creat Clear Calc 36.4 Estimated GFR 31 Random Glucose 90 Calcium 9.3 Microbiology Microbiology Results: Microbiology 02/19/25 09:23 Blood - Venous Blood Culture - Preliminary No growth after 48 hours. 02/19/25 09:23 Blood - Venous Blood Culture - Preliminary No growth after 48 hours. 02/19/25 21:37 Urine clean catch - Clean Catch Midstream Urine Culture - Final No growth. Procedures Date of Service Date of Service: 02/23/25 Assessment & Plan Assessment and plan (1) JOSE L (acute kidney injury): Status: Acute Plan Has CKD 3 at baseline; JOSE L due to tubular injury NOobstructive uropathy Serum creatinine improving No indication for renal replacement but needs more free water C/W current supp care; Keep I > O with free water and watch Na Replace K orally- 40 meq POx 1 to correct hypokalemia Time Spent With Patient Time: Total time managing care of this patient today ____ minutes. Progress Note: Quality Stroke Does the patient have a stroke diagnosis?: No
--- NOTE | 2025-02-23 14:33 | MHC.CM.PN ---
Patient not medically cleared for dc at this time. SNF updated. CM will continue to follow.
[2025-02-23] MEDS: Enoxaparin Sodium 30 MG/0.3 ML SYRINGE SUBCUT (15:39)
[2025-02-23 16:00] VITALS: BP 127/71; PULSE 88; RESP 18; TEMP 36.2; O2SAT 95
[2025-02-23] MEDS: Potassium Chloride ER 20 MEQ TAB.ER.PRT 40 MEQ PO (16:58)
[2025-02-23 19:12] VITALS: BP 142/77; PULSE 84; RESP 18; TEMP 36.7; O2SAT 96
[2025-02-23] MEDS: clomiPRAMINE HCl 25 MG CAPSULE 100 MG PO (20:06)
[2025-02-23] MEDS: cloZAPine 100 MG TABLET 200 MG PO (20:07)
[2025-02-23] MEDS: cefTRIAXone sodium 1 GM VIAL IVPUSH (20:07)
[2025-02-23 23:14] VITALS: BP 175/80; PULSE 77; RESP 18; TEMP 36.6; O2SAT 96
[2025-02-24 03:57] VITALS: BP 166/88; PULSE 68; RESP 18; TEMP 36.5; O2SAT 96
[2025-02-24] MEDS: Omeprazole 40 MG CAPSULE.DR PO (05:30)
[2025-02-24 08:00] VITALS: BP 142/85; PULSE 84; RESP 16; TEMP 36.8; O2SAT 97
[2025-02-24 08:00] LABS: Hematocrit 36.4 % (42.0-52.0); Hemoglobin 11.4 g/dl (14.0-18.0); Mean Corpuscular HGB Conc 31.3 g/dl (31.0-36.0); Mean Corpuscular Hemoglobin 26.7 pg (27.0-33.0); Mean Corpuscular Volume 85.2 fL (80.0-98.0); Mean Platelet Volume 9.5 fL (9.4-12.4); Platelet Count 192 X10*3/uL (160-400); Red Blood Count 4.27 X10*6/uL (4.60-5.80); Red Cell Distribution Width 13.1 % (11.0-16.0); White Blood Count 12.6 X10*3/uL (4.8-10.8)
[2025-02-24 08:15] LABS: Anion Gap 14 (12-20); Blood Urea Nitrogen 30 mg/dL (9-16); Calcium 9.1 mg/dL (8.4-10.2); Carbon Dioxide 24 mmol/L (22-29); Chloride 108 mmol/L (96-108); Creatinine Clr Calc Pharmacy 35.3; Estimated Glomerular Filt Rate 30; Glucose Random 97 mg/dL (60-115); Potassium 3.1 mmol/L (3.3-5.1); Sodium 143 mmol/L (135-145)
[2025-02-24 09:03] VITALS: BP 170/95
[2025-02-24] MEDS: cloZAPine 100 MG TABLET PO (09:03)
[2025-02-24] MEDS: Fludrocortisone Acetate 0.1 MG TABLET 0.2 MG PO (09:03)
[2025-02-24] MEDS: amLODIPine Besylate 5 MG TABLET PO ×2 (09:03→10:21)
[2025-02-24] MEDS: Potassium Chloride ER 20 MEQ TAB.ER.PRT 40 MEQ PO (09:03)
[2025-02-24] MEDS: Tamsulosin HCL 0.4 MG CAPSULE PO (09:04)
[2025-02-24] MEDS: Gabapentin 100 MG CAPSULE 200 MG PO (09:04)
[2025-02-24] MEDS: Hydrocortisone 10 MG TABLET PO (09:04)
[2025-02-24] MEDS: 0.9 % Sodium Chloride Flush 3 ML SYRINGE IVFLUSH (09:04)
--- NOTE | 2025-02-24 09:04 | PM.DS ---
DS: Providers Provider Date of Service: 02/24/25 Date of admission: 02/19/25 15:06 Date of discharge: 02/24/25 Primary care physician: Forest Wood DO Admitting clinician: Bryson Psacual Consults: 02/19/25 15:01 Consult to Hospitalist Routine Comment: Consulting Provider: [facility] Reason For Exam: Medical management, small-bowel obstruction 02/19/25 16:18 Consult to Nephrology Routine Consulting Provider: [facility] Reason for consultation: JOSE L on CKD Attending physician on discharge: Bryson Pascual DS: Transfer Hospital Acceptance Reason for Transfer: Returned to facility Name of Facility: [facility] DS: Diagnosis Discharge Diagnosis (1) JOSE L (acute kidney injury): Status: Acute (2) Partial small bowel obstruction: Status: Acute DS: Summary Hospital Course Hospital Course: 69-year-old male patient, resident of [facility], with a prior history of TBI, BPH, orthostatic hypotension, chronic hepatitis C on epclusa, hld, epilepsy, secondary hyperparathyroidism of renal origin, GERD, schizoaffective disorder, urinary retention, osteoporosis, gait/mobility impairment, ADHD, and CKD stage 3, and a previous surgical history of an open cholecystectomy many years ago now presenting with complaints of abdominal pain, distention, nausea and vomiting of feculent material. The symptoms started on the day prior to admission. He has a prior history of small-bowel obstruction on 2 other occasions the most recent in 2022 which resolved with nonoperative measures. He is uncertain of any sick contacts or eating unusual foods. He presented to the emergency department for further evaluation and was found to have marked distention of his abdomen. Initial workup revealed a normal WBC of 6.9. He was hypotensive and tachycardic and given several L of fluid in the emergency department. Lactate level was also noted to be elevated at 3.7. CT abdomen and pelvis revealed a dilated stomach and proximal small bowel. Distal bowel is decompressed. There is stool and gas noted in the colon. No clear transition point is identified. The patient was admitted to the surgical service with hospitalist consultation. He was made NPO and a nasogastric tube inserted. Initially a large amount of bilious material was aspirated from the NG tube. By the next hospital day the patient felt improved with decreased abdominal pain. He began to pass flatus as well. A clamping trial was performed with the nasogastric tube on 02/21/2025. Prior to completion of the clamping trial the patient pulled the nasogastric tube out. He tolerated this well without any increased abdominal pain. He was subsequently started on clear liquids and slowly advanced to a regular diet by 02/23/2025. He tolerated this over a 24 hour. Without increased abdominal pain, nausea or vomiting. Patient is to be discharged back to his home at [facility]. He may resume his previous medications and should remain on a bowel regime including stool softener. He will follow up in my office in approximately 2 weeks for post hospitalization evaluation. The patient agreed with the plan. Status at Discharge Functional status at discharge: independent ambulation Overall status at discharge: patient is back to baseline Time Attestation Discharge Coordination Time (in mins): 25 Quality: Safe Use of Opioids Does Pt have an Active Cancer Diagnosis on the Problem List?: No Quality: Stroke Does the patient have a stroke diagnosis?: No Physical Exam Vital Signs: Vital Signs: Last Vital Signs Temp 98.3 F 02/24/25 08:00 Pulse 84 02/24/25 08:00 Resp 16 02/24/25 08:00 BP 142/85 H 02/24/25 08:00 Pulse Ox 97 02/24/25 08:00 O2 Del Method Room Air 02/24/25 08:00 O2 Flow Rate 2 02/20/25 04:00 BMI result Body Mass Index 37.4 Const: General: comfortable and no acute distress Orientation/consciousness: patient oriented x3 Resp: Effort & Inspection: able to speak in complete sentences GI: Inspection: Yes distended (mild), Yes obesity and Yes scar (RUQ healed surgical scar) Palpation (GI): Soft to palpation, not firm, nontender, no guarding and not rigid Neuro: General: patient oriented x3 DS: Data Data Completed and Pending Labs on day of discharge: Laboratory Results - last 24 hr 02/24/25 07:38 WBC 12.6 H RBC 4.27 L Hgb 11.4 L Hct 36.4 L MCV 85.2 MCH 26.7 L MCHC 31.3 RDW 13.1 Plt Count 192 MPV 9.5 Absolute Nucleated RBC 0.000 Nucleated RBC % (auto) 0.0 Sodium 143 Potassium 3.1 L Chloride 108 Carbon Dioxide 24 Anion Gap 14 BUN 30 H Creatinine 2.20 H Estim Creat Clear Calc 35.3 Estimated GFR 30 Random Glucose 97 Calcium 9.1 Preliminary micro results at discharge 02/19/25 09:23 Blood Culture - Preliminary Blood - Venous No growth after 48 hours. 02/19/25 09:23 Blood Culture - Preliminary Blood - Venous No growth after 48 hours. Discharge Plan Discharge Anticipated Discharge Date/Time: 02/24/25 09:03 Patient Disposition: Xfer Other Discharge Diagnosis: Small Bowel Obstruction Referrals: Bryson Pascual MD [Physician] - 2 Weeks Forest Wood DO [Primary Care Provider] - 1 Week Discharge Medications: Continued multivitamin Tablet 1 tab PO DAILY sennosides [senna] 8.6 mg Tablet 8.6 mg PO DAILY PRN (Reason: Constipation) guaifenesin 100 mg/5 mL Liquid 200 mg PO Q4H PRN (Reason: Cough) ascorbic acid (vitamin C) [Vitamin C] 500 mg Tablet 500 mg PO DAILY ferrous sulfate 325 mg (65 mg iron) Tablet 325 mg PO DAILY clomipramine 50 mg capsule 100 mg PO BEDTIME albuterol sulfate 90 mcg/actuation Hfa Aerosol Inhaler 2 puff INHALATION Q4H PRN (Reason: Wheezing) Rx Instructions: Uses with a Spacer/Aero-Holding Chambers Device. fludrocortisone 0.1 mg Tablet 0.2 mg PO DAILY calcitriol 0.25 mcg capsule 0.25 mcg PO TUFR docusate sodium 100 mg Tablet 100 mg PO BID loratadine 10 mg Tablet 10 mg PO DAILY PRN (Reason: Allergy Symptoms) fenofibrate nanocrystallized 145 mg tablet 145 mg PO DAILY bisacodyl 10 mg Suppository 10 mg [place] DAILY PRN (Reason: Constipation) hydrocortisone 10 mg Tablet 10 mg PO TID sennosides [senna] 8.6 mg Tablet 8.6 mg PO BID acetaminophen 325 mg Tablet 650 mg PO Q6H MDD 3000mg/24 hrs PRN (Reason: Fever Or Pain) clozapine 100 mg tablet 100 mg PO DAILY amlodipine 5 mg tablet 5 mg PO DAILY omeprazole 40 mg capsule,delayed release(DR/EC) 40 mg PO BID@0630,1630 tramadol 50 mg Tablet 50 mg PO TID gabapentin 100 mg capsule 200 mg PO TID ergocalciferol (vitamin D2) 1,250 mcg (50,000 unit) Capsule 1,250 mcg PO FR alum-mag hydroxide-simeth 200-200-20 mg/5 mL Suspension 30 ml PO Q4H PRN (Reason: GI Upset) Rx Instructions: administer between meals and at bedtime Bengay Ultra Strength(menthol) 5 % Adhesive Patch,Medicated 1 patch TOPICAL Q8H PRN (Reason: muscle ache) Rx Instructions: Apply to right shoulder and neck. alfuzosin 10 mg Tablet Extended Release 24 Hr 10 mg PO DAILY Rx Instructions: administer after the same meal each day Artificial Tears (cmc) 1 % Drops 1 drp OPHTHALMIC (EYE) BID naloxone [Narcan] 4 mg/actuation [place],Non-Aerosol 4 mg INTRANASAL Q3M PRN (Reason: overdose) Rx Instructions: spray 1 dose into ONE nostril; alternate nostrils w each dose until help arrives clozapine 200 mg tablet 200 mg PO BEDTIME Discharge Orders: Discharge Order (Routine); Ordered 02/24/25 Ordered By: Bryson Pascual Diet: Advance to usual diet Activity on Discharge: As tolerated Stand Alone Forms: Patient Portal Discharge page Print Language: Panamanian Care Plan Goals: Return to baseline level of health Health Concerns: recurrent SBO JOSE L Plan of Treatment: Follow up with PCP Assessment: Patient doing well
--- NOTE | 2025-02-24 09:18 | PM.PNGS ---
Subjective Subjective Date of Service: 02/24/25 Interval history: Patient reports tolerating a regular diet without nausea or vomiting. Continues to move his bowels on a daily basis. He feels ready for discharge to home. Physical Exam Vital Signs: Vital Signs: Last Vital Signs Temp 98.3 F 02/24/25 08:00 Pulse 84 02/24/25 08:00 Resp 16 02/24/25 08:00 BP 170/95 H 02/24/25 09:03 Pulse Ox 97 02/24/25 08:00 O2 Del Method Room Air 02/24/25 08:00 O2 Flow Rate 2 02/20/25 04:00 BMI result Body Mass Index 37.4 Const: General: comfortable and no acute distress Orientation/consciousness: patient oriented x3 Resp: Effort & Inspection: able to speak in complete sentences GI: Inspection: Yes distended (mild), Yes obesity and Yes scar (RUQ healed surgical scar) Palpation (GI): Soft to palpation, not firm, nontender, no guarding and not rigid Percussion: Yes normal to percussion Auscultation: normal bowel sounds Neuro: General: patient oriented x3 Objective Data Active Medications Acetaminophen (Acetaminophen 325 Mg Tablet) 650 mg PO Q6H PRN PRN Reason: Pain, Mild 1-3,fever,headache Last Admin: 02/23/25 05:44 Dose: 650 mg Documented By: DEX Albuterol Sulfate (Albuterol Sulfate 90 Mcg 8 Gm Inhaler) 2 puff INHALE Q4H PRN PRN Reason: Wheezing Amlodipine Besylate (Amlodipine Besylate 5 Mg Tablet) 5 mg PO DAILY [facility]; Protocol Last Admin: 02/24/25 09:03 Dose: 5 mg Documented By: MONTSE Artificial Tears (Artificial Tears 15 Ml Drops) 1 drop EYE-BOTH BID [facility] Last Admin: 02/24/25 09:04 Dose: Not Given Documented By: MONTSE Non-Admin Reason: Patient Refused Bisacodyl (Bisacodyl 10 Mg Supp.Rect) 10 mg [place] DAILY PRN PRN Reason: Constipation Calcitriol (Calcitriol 0.25 Mcg Capsule) 0.25 mcg PO TUFR [facility] Last Admin: 02/23/25 08:04 Dose: 0.25 mcg Documented By: MARIPOSA Calcium Carbonate (Calcium Carbonate 750 Mg Tab.Chew) 750 mg PO Q4H PRN PRN Reason: Heartburn Last Admin: 02/22/25 14:19 Dose: 750 mg Documented By: ANDRA Ceftriaxone Sodium (Ceftriaxone Sodium 1 Gm Vial) 1 gm IVPUSH BEDTIME [facility] Last Admin: 02/23/25 20:07 Dose: 1 gm Documented By: PERLA Clomipramine HCl (Clomipramine Hcl 25 Mg Capsule) 100 mg PO BEDTIME [facility] Last Admin: 02/23/25 20:06 Dose: 100 mg Documented By: PERLA Clozapine (Clozapine 100 Mg Tablet) 100 mg PO DAILY [facility] Last Admin: 02/24/25 09:03 Dose: 100 mg Documented By: MONTSE Clozapine (Clozapine 100 Mg Tablet) 200 mg PO BEDTIME [facility] Last Admin: 02/23/25 20:07 Dose: 200 mg Documented By: PERLA Enoxaparin Sodium (Enoxaparin Sodium 30 Mg/0.3 Ml Syringe) 30 mg SUBCUT Q24H [facility] Last Admin: 02/23/25 15:39 Dose: 30 mg Documented By: MARIPOSA Fludrocortisone Acetate (Fludrocortisone Acetate 0.1 Mg Tablet) 0.2 mg PO DAILY [facility] Last Admin: 02/24/25 09:03 Dose: 0.2 mg Documented By: MONTSE Gabapentin (Gabapentin 100 Mg Capsule) 200 mg PO TID [facility] Last Admin: 02/24/25 09:04 Dose: 200 mg Documented By: MONTSE Hydrocortisone (Hydrocortisone 10 Mg Tablet) 10 mg PO TID [facility] Last Admin: 02/24/25 09:04 Dose: 10 mg Documented By: MONTSE Hydromorphone HCl (Hydromorphone Hcl 0.5 Mg/0.5 Ml Syringe) 0.5 mg IVPUSH Q3H PRN; Protocol PRN Reason: Pain, Severe (Pain Scale 7-10) Last Admin: 02/20/25 21:41 Dose: 0.5 mg Documented By: OSEI Dextrose (D5w) 1,000 mls @ 80 mls/hr IVCONT .[id number] [facility] Last Admin: 02/24/25 09:12 Dose: Not Given Documented By: MONTSE Non-Admin Reason: Physician Held Med Comments: IV fluids stopped by Dr. Pascual. Patient tolerating PO. Magnesium Hydroxide (Milk Of Magnesia 30 Ml Oral.Susp) 30 ml PO DAILY PRN PRN Reason: Constipation Melatonin (Melatonin 3 Mg Tablet) 6 mg PO BEDTIME PRN PRN Reason: Insomnia Last Admin: 02/22/25 20:05 Dose: 6 mg Documented By: VINNY Omeprazole (Omeprazole 40 Mg Capsule.) 40 mg PO BID@0630,1630 [facility] Last Admin: 02/24/25 05:30 Dose: 40 mg Documented By: PERLA Ondansetron HCl (Ondansetron Hcl 4 Mg/2 Ml Vial) 4 mg IVPUSH QID PRN PRN Reason: Nausea Last Admin: 02/20/25 18:52 Dose: 4 mg Documented By: OSEI Senna (Sennosides 8.6 Mg Tablet) 8.6 mg PO DAILY PRN PRN Reason: Constipation Sodium Chloride (0.9 % Sodium Chloride Flush 3 Ml Syringe) 3 ml IVFLUSH QSHIFT [facility] Last Admin: 02/24/25 09:04 Dose: 3 ml Documented By: MONTSE Tamsulosin HCl (Tamsulosin Hcl 0.4 Mg Capsule) 0.4 mg PO DAILY [facility] Last Admin: 02/24/25 09:04 Dose: 0.4 mg Documented By: MONTSE Labs 02/24/25 07:38 02/24/25 07:38 Labs: Laboratory Results - last 24 hr 02/24/25 07:38 MCV 85.2 MCH 26.7 L MCHC 31.3 RDW 13.1 Plt Count 192 MPV 9.5 Absolute Nucleated RBC 0.000 Nucleated RBC % (auto) 0.0 Anion Gap 14 Estim Creat Clear Calc 35.3 Estimated GFR 30 Random Glucose 97 Calcium 9.1 Procedures Date of Service Date of Service: 02/24/25 Progress Note: A&P Assessment and plan (1) Partial small bowel obstruction: Status: Acute Plan 69-year-old male patient presenting with a partial small-bowel obstruction following previous abdominal surgery. He was treated non operatively with nasogastric tube decompression and bowel rest. He subsequently had a return of bowel function and was able to tolerate a regular diet. He is being discharge to his home care 1. He will follow up in our office in approximately 2 weeks. Time Spent With Patient Time: Total time managing care of this patient today ____ minutes. Quality Stroke Does the patient have a stroke diagnosis?: No VTE Prior VTE?: No VTE Risk Level:: Surgical - moderate VTE Device Contraindication: N/A - Device Ordered VTE Drug Contraindication: N/A - Med Ordered
--- NOTE | 2025-02-24 09:42 | HO.PM.IMPN ---
Subjective Subjective Date of Service: 02/24/25 Interval History: f/u sbo, tolerating diet, no new issues, no sings of bowel obstruction Physical Exam Vital Signs: Vital Signs: Last Vital Signs Temp 98.3 F 02/24/25 08:00 Pulse 84 02/24/25 08:00 Resp 16 02/24/25 08:00 BP 170/95 H 02/24/25 09:03 Pulse Ox 97 02/24/25 08:00 O2 Del Method Room Air 02/24/25 08:00 O2 Flow Rate 2 02/20/25 04:00 BMI result Body Mass Index 37.4 Const: Other: General: oriented to lisa Resp: CTA bilateral CVS: S1,S2,RRR GI: some BS, NT, + distention Skin: No rash Neuro: motor grossly intact Psych: flat Objective Data Active Medications Acetaminophen (Acetaminophen 325 Mg Tablet) 650 mg PO Q6H PRN PRN Reason: Pain, Mild 1-3,fever,headache Last Admin: 02/23/25 05:44 Dose: 650 mg Documented By: DEX Albuterol Sulfate (Albuterol Sulfate 90 Mcg 8 Gm Inhaler) 2 puff INHALE Q4H PRN PRN Reason: Wheezing Amlodipine Besylate (Amlodipine Besylate 10 Mg Tablet) 10 mg PO DAILY [facility]; Protocol Artificial Tears (Artificial Tears 15 Ml Drops) 1 drop EYE-BOTH BID [facility] Last Admin: 02/24/25 09:04 Dose: Not Given Documented By: MONTSE Non-Admin Reason: Patient Refused Bisacodyl (Bisacodyl 10 Mg Supp.Rect) 10 mg [place] DAILY PRN PRN Reason: Constipation Calcitriol (Calcitriol 0.25 Mcg Capsule) 0.25 mcg PO TUFR [facility] Last Admin: 02/23/25 08:04 Dose: 0.25 mcg Documented By: DARRYLFAShrdadha Calcium Carbonate (Calcium Carbonate 750 Mg Tab.Chew) 750 mg PO Q4H PRN PRN Reason: Heartburn Last Admin: 02/22/25 14:19 Dose: 750 mg Documented By: ANDRA Ceftriaxone Sodium (Ceftriaxone Sodium 1 Gm Vial) 1 gm IVPUSH BEDTIME [facility] Last Admin: 02/23/25 20:07 Dose: 1 gm Documented By: PERLA Clomipramine HCl (Clomipramine Hcl 25 Mg Capsule) 100 mg PO BEDTIME [facility] Last Admin: 02/23/25 20:06 Dose: 100 mg Documented By: PERLA Clozapine (Clozapine 100 Mg Tablet) 100 mg PO DAILY [facility] Last Admin: 02/24/25 09:03 Dose: 100 mg Documented By: MONTSE Clozapine (Clozapine 100 Mg Tablet) 200 mg PO BEDTIME [facility] Last Admin: 02/23/25 20:07 Dose: 200 mg Documented By: PERLA Enoxaparin Sodium (Enoxaparin Sodium 30 Mg/0.3 Ml Syringe) 30 mg SUBCUT Q24H [facility] Last Admin: 02/23/25 15:39 Dose: 30 mg Documented By: DARRYLFAShraddha Fludrocortisone Acetate (Fludrocortisone Acetate 0.1 Mg Tablet) 0.2 mg PO DAILY [facility] Last Admin: 02/24/25 09:03 Dose: 0.2 mg Documented By: MONTSE Gabapentin (Gabapentin 100 Mg Capsule) 200 mg PO TID [facility] Last Admin: 02/24/25 09:04 Dose: 200 mg Documented By: MONTSE Hydrocortisone (Hydrocortisone 10 Mg Tablet) 10 mg PO TID [facility] Last Admin: 02/24/25 09:04 Dose: 10 mg Documented By: MONTSE Hydromorphone HCl (Hydromorphone Hcl 0.5 Mg/0.5 Ml Syringe) 0.5 mg IVPUSH Q3H PRN; Protocol PRN Reason: Pain, Severe (Pain Scale 7-10) Last Admin: 02/20/25 21:41 Dose: 0.5 mg Documented By: OSEI Dextrose (D5w) 1,000 mls @ 80 mls/hr IVCONT .[id number] [facility] Last Admin: 02/24/25 09:12 Dose: Not Given Documented By: MONTSE Non-Admin Reason: Physician Held Med Comments: IV fluids stopped by Dr. Pascual. Patient tolerating PO. Magnesium Hydroxide (Milk Of Magnesia 30 Ml Oral.Susp) 30 ml PO DAILY PRN PRN Reason: Constipation Melatonin (Melatonin 3 Mg Tablet) 6 mg PO BEDTIME PRN PRN Reason: Insomnia Last Admin: 02/22/25 20:05 Dose: 6 mg Documented By: VINNY Omeprazole (Omeprazole 40 Mg Jr.) 40 mg PO BID@0630,1630 [facility] Last Admin: 02/24/25 05:30 Dose: 40 mg Documented By: PERLA Ondansetron HCl (Ondansetron Hcl 4 Mg/2 Ml Vial) 4 mg IVPUSH QID PRN PRN Reason: Nausea Last Admin: 02/20/25 18:52 Dose: 4 mg Documented By: OSEI Senna (Sennosides 8.6 Mg Tablet) 8.6 mg PO DAILY PRN PRN Reason: Constipation Sodium Chloride (0.9 % Sodium Chloride Flush 3 Ml Syringe) 3 ml IVFLUSH QSHIFT [facility] Last Admin: 02/24/25 09:04 Dose: 3 ml Documented By: MONTSE Tamsulosin HCl (Tamsulosin Hcl 0.4 Mg Capsule) 0.4 mg PO DAILY [facility] Last Admin: 02/24/25 09:04 Dose: 0.4 mg Documented By: MONTSE Labs 02/24/25 07:38 02/24/25 07:38 Labs: Laboratory Results - last 24 hr 02/24/25 07:38 MCV 85.2 MCH 26.7 L MCHC 31.3 RDW 13.1 Plt Count 192 MPV 9.5 Absolute Nucleated RBC 0.000 Nucleated RBC % (auto) 0.0 Anion Gap 14 Estim Creat Clear Calc 35.3 Estimated GFR 30 Random Glucose 97 Calcium 9.1 Assessment and Plan (1) Complete small bowel obstruction: Status: Inactive (2) JOSE L (acute kidney injury): Status: Acute Plan 69 year old male with history of TBI, BPH, orthostatic hypotension, chronic hepatitis C on epclusa, hld, epilepsy, secondary hyperparathyroidism of renal origin, GERD, schizoaffective disorder, urinary retention, osteoporosis, gait/mobility impairment, ADHD, and CKD stage 3 here with acute small deann obstruction associated with Hypotension Acute SBO, seems clinically resolved, tolerating regular diet abdomen still distented but probablechronic Surgery following, further management per surgery JOSE L on CKD IV, Creatine is above baseline, likely from hypOtension leading to renal hypoperfusion, trending down continue ivf Nephrology following Creatine stable hypErnatremia, mild, resolved. HypOtension, related to SBP but has history of adrenal insuficiency continue oral hydrocotisone Hypokalemia h/o orthostatic hypotension midodrine hold with high bps HypOkalemia, oral replacmennt HTN start Norvasc, double dose Possible PNA, no hypoxia got zosyn in ED, continue Ceftriaxone ct did not confirm pneumonia, elevated WBC d/t steroid, stop Abx Leukocytosis, likely related to stress dose steroid Schizoaffective disorder continue psych meds keep on ANC DVT prophylaxis- Lovenox Full code reason for continued hospitalization: monitoring tolerance of solids, hypernatremia without ivf Quality Stroke Does the patient have a stroke diagnosis?: No VTE Prior VTE?: No VTE Risk Level:: Surgical - moderate VTE Device Contraindication: N/A - Device Ordered VTE Drug Contraindication: N/A - Med Ordered
[2025-02-24 10:17] VITALS: BP 158/85
[2025-02-24 12:07] VITALS: BP 158/62; PULSE 78; RESP 18; TEMP 36.9; O2SAT 95
--- NOTE | 2025-02-24 12:47 | MHC.CM.PN ---
PT MEDICALLY CLEARED TO DC BACK TO LTC AT [facility] TODAY CM SPOKE TO SNF LIAISON WHO ARRANGED [facility] [employer] [employer] TECHNICAL OFFICER FOR PT FOR 1300 HOURS VM MESSAGE LEFT FOR SISTER/HCP, FINA GUZMAN [phone]
== END 2025-02-24 13:00 | disposition other institution (70) | DRG 388 ==
LOC: HO.ED 15:27 → HO.EDOVER 15:28 → HO.S3 16:11
PROVIDERS: Internal Medicine; Admitting Provider Surgery; Emergency Provider Emergency Medicine Emergency Medical Services; PCP Hospitalist; Visit Provider Surgery
DX: K91.31 Postprocedural partial intestinal obstruction (principal); J18.9 Pneumonia, unspecified organism; N25.81 Secondary hyperparathyroidism of renal origin; E87.0 Hyperosmolality and hypernatremia; N17.9 Acute kidney failure, unspecified; N18.32 Chronic kidney disease, stage 3b; Z20.822 Contact with and (suspected) exposure to COVID-19; Y83.9 Surgical procedure, unspecified as the cause of abnormal reaction of the patient, or of later complication, without mention of misadventure at the time of the procedure; B18.2 Chronic viral hepatitis C; I95.9 Hypotension, unspecified; F25.9 Schizoaffective disorder, unspecified; Z90.49 Acquired absence of other specified parts of digestive tract; Z87.891 Personal history of nicotine dependence; Z79.899 Other long term (current) drug therapy
CPT/HCPCS: 0241U; 36415; 71045; 71250; 74176; 80048; 80053; 80076; 81001; 82272; 83605; 84484; 85007; 85025; 85027; 85048; 85610; 87040; 87086; 93005; 99285; J0696; J1100; J1171; J1650; J1720; J2405; J2543; J3360; P9047

== ENCOUNTER → 2025-02-19 09:11 | Outpatient (BNV) | payer MEDICARE, MEDICAID, SELFPAY | PROVIDERS: Admitting Provider Surgery; Emergency Provider Emergency Medicine Emergency Medical Services; PCP Hospitalist; Visit Provider Internal Medicine | DX: I45.10 Unspecified right bundle-branch block (principal); I25.2 Old myocardial infarction; R00.0 Tachycardia, unspecified | CPT/HCPCS: 93010 ==

== ENCOUNTER → 2025-02-19 09:12 | Outpatient (BNV) | payer MEDICARE, MEDICAID, SELFPAY | PROVIDERS: Emergency Provider Emergency Medicine Emergency Medical Services; PCP Hospitalist; Visit Provider Radiology Diagnostic Radiology | DX: R11.2 Nausea with vomiting, unspecified (principal); R93.421 Abnormal radiologic findings on diagnostic imaging of right kidney; Z46.59 Encounter for fitting and adjustment of other gastrointestinal appliance and device | CPT/HCPCS: 71045; 71250; 74176 ==

== ENCOUNTER → 2025-02-19 15:06 | Outpatient (BNV) | payer MEDICARE, MEDICAID, SELFPAY | PROVIDERS: Admitting Provider Surgery; Emergency Provider Emergency Medicine Emergency Medical Services; PCP Hospitalist; Visit Provider Internal Medicine Nephrology | DX: N17.0 Acute kidney failure with tubular necrosis (principal); N18.30 Chronic kidney disease, stage 3 unspecified | CPT/HCPCS: 99223; 99232 ==

== ENCOUNTER → 2025-02-19 15:06 | Outpatient (BNV) | payer MEDICARE, MEDICAID, SELFPAY | PROVIDERS: Admitting Provider Surgery; Emergency Provider Emergency Medicine Emergency Medical Services; PCP Hospitalist; Visit Provider Internal Medicine | DX: K56.601 Complete intestinal obstruction, unspecified as to cause (principal); N17.9 Acute kidney failure, unspecified | CPT/HCPCS: 99232 ==

== ENCOUNTER → 2025-02-19 15:06 | Outpatient (BNV) | payer MEDICARE, MEDICAID, SELFPAY | PROVIDERS: Admitting Provider Surgery; Emergency Provider Emergency Medicine Emergency Medical Services; PCP Hospitalist; Visit Provider Surgery | DX: K56.600 Partial intestinal obstruction, unspecified as to cause (principal) | CPT/HCPCS: 99222 ==

== ENCOUNTER 2025-05-29 09:44 | Outpatient (AMB) | payer MEDICARE, MEDICAID, SELFPAY ==
--- NOTE | 2025-05-29 10:52 | MHC.OFFVIS ---
Intake Visit Reasons: 6m/PVR Intake Note: Patient is Present for 6m Follow Up/PVR Urology Medication: Alfuzosin VIT-C Antibiotic Allergies: None Blood Thinners: None TODAY'S PVR:0ml Swimmer Required: No Accompanied by: ELECTRICAL SYSTEMS ENGINEER Allergies NSAIDS (Non-Steroidal Anti-Inflamma (NSAIDS (NON-STEROIDAL ANTI-INFLAMMA) Allergy (Unknown, Verified 05/29/25 10:53) UNKNOWN HPI Comments Details: Lamin CARLOS is a very pleasant male. They are a patient of Dr Wood. They are seen in the office today for the following urologic conditions. - microscopic hematuria - neurogenic bladder - lower urinary tract symptoms Six-month follow-up PVR 0 cc Creatinine 2.2 Schizoaffective disorder Longstanding anticholinergics side effect medications PSA no longer followed as less than 10 year life expectancy Lower urinary tract symptoms Primarily hesitancy and nocturia with terminal dribbling Current therapy alfuzosin Vitamin-C Microscopic Hematuria:? Microscopic hematuria was diagnosed during?routine UA- evaulation for UTI ?- has a number of meds with anticholinergic side effects and may have difficulty initiating urination with incomplete emptying ?- no hematuria today.? Since the last visit the patient has?noticed gross hematuria ?- tests negative today.? Relevant medical history for?renal insufficiency, STDs, UTI's.? Radiographic imaging:?US renal 12/04 NAD.? Radiology report?no genitourinary abnormality.? Other investigations?01/04 cytology, , normal.? Cystoscopy findings?01/04 - meatal stenosis, small prostate, significant trabeculation and cellules, presumed neurogenic component.? Therapeutic plan?follow PRN - has anticholinergic side effects.? PFSH Medical History Partial small bowel obstruction Schizoaffective disorder Chronic kidney disease, stage 3 Anemia Hyperlipidemia Orthostatic hypotension GERD (gastroesophageal reflux disease) Attention deficit hyperactivity disorder Neurogenic bladder Hematuria TBI (traumatic brain injury) Surgical History History of surgery Social History Household Members: Other Housing: Residential Do you presently have visiting nurse or other home services: Yes Alcohol intake: never Patient Tobacco Use Status: Former Tobacco user Tobacco use type: Cigarette and Cigar Advance Directives Date on File: 07/10/21 service: No Current occupational status: disabled Office Procedures Post Void Residual Post Residual Void Post Void Residual (PVR): 0 [id number] Void Residual by ultrasound Results AMB Urinalysis, Automated UA Leukoctes 0 Adin/uL Last Edit by OVIDIO Gustafson on 05/29/25 13:25 UA Nitrite Negative Last Edit by Milli Ansari [facility] on 05/29/25 13:25 UA Urobilinogen 3.5 mg/dL Last Edit by Milli Ansari [facility] on 05/29/25 13:25 UA Protein 1.0 mg/dL Last Edit by Milli Ansari [facility] on 05/29/25 13:25 UA pH 6.0 Last Edit by Milli Ansari [facility] on 05/29/25 13:25 UA Blood 0 Jagdish/uL Last Edit by Milli Ansari [facility] on 05/29/25 13:25 UA Specific [place] 1.015 Last Edit by Milli Ansari [facility] on 05/29/25 13:25 UA Ketone Negative Last Edit by Milli Ansari [facility] on 05/29/25 13:25 UA Bilirubin 0 mg/dL Last Edit by Milli Ansari [facility] on 05/29/25 13:25 UA Glucose 0 mg/dL Last Edit by Milli Ansari [facility] on 05/29/25 13:25 Assessment & Plan Assessment & Plan Orders: Orders AMB Post Void Residual by ultrasound Today R35.1 - Nocturia AMB Urinalysis Automated Today Z13.9 - Encounter for screening, unspecified Coding CPT Codes Post Residual Void - PVR CPT Code: 90908-[id number] Void Residual by ultrasound ([id number])
--- OUTSIDE RECORDS SUMMARY | 2025-05-29 11:23 | XMS_ITS | Encounter Summary ---
Author Organization [facility] Address [address] [place] [address] Phone Care Team Providers Care Rehab Technician Name Role Phone Forest Wood Primary Care Provider [phone] Encounter Details Date Type Department Care Team (Late Contact Info) Description 02/26/2021 Orders Only [facility] [address] [place] [address] Provider, MD Christian Social History Tobacco Use Types Packs/Day Years [...] Care Team (Late st Contact Info) Description 09/06/2025 10:30 AM EST Office Visit [facility] [address] [facility] [address] [place] [address] Terrance Downing MD [address] [facility] [address] [place] [address] documented as of this encounter Procedures Procedure Name Priority Date/Time Associated Diagnosis Comments EXT RESULT ENTRY Routine 02/26/2021 documented in this encounter Results * EXT RESULT ENTRY (02/26/2021) us Historical Provider LAB BLOOD ORDERABLES Natalia l Result documented in this encounter Visit Diagnoses Not on filedocumented in this encounter Care Teams Rehab Technician Relationship Specialty Start Date End Date Forest Wood DO [address] [place] [address] [address] [place] [address] PCP - General 09/30/20 documented as of this encounter
--- OUTSIDE RECORDS SUMMARY | 2025-05-29 11:23 | XMS_ITS | Clinical Summary ---
Author Organization [facility] Address [address] [place] [address] Care Team Providers Care Concrete Grinder Operator Name Role Phone Unavailable Primary Care Provider Unavailabl e Social History Tobacco Use Types Packs/Day Years Used Date Smoking Tobacco: Never Assessed Sex and Gender Information Value Date Recorded Sex Assigned at Not on file Legal Sex Male 6:59 PM EST Gender Identity Not on file Sexual Orientation Not on file Plan of Treatment Health Maintenance Due Date Last Done Comments Advance Care Planning 1955 Hepatitis C Virus Screening 1955 DTaP/Tdap/Td Vaccines (1 - Tdap) 1975 Pneumococcal Vaccines 50+ (1 of 1 - PCV) 2006 Zoster (Shingles) Vaccine (1 of 2) 2006 COVID-19 Vaccine (1 - 2023-2 5 season) 2025 RSV Vaccine 60 years and old er and Patients (1 - 1-dose 75+ series) 2031 Hepatitis B Vaccines Aged Out No long er eligible based on patient's age to complete this topic
--- OUTSIDE RECORDS SUMMARY | 2025-05-29 11:24 | XMS_ITS | Clinical Summary ---
Author Organization [facility] Address [address] [place] [address] Phone Care Team Providers Care Visual And Stock Associate Name Role Phone NinaForest Primary Care Provider [phone] Allergies Active Allergy Reactions Criticality Noted Date Comments Nsaids 07/12/2023 Medications Multiple Vitamins-Iron (Multivitamin Plus Iron Adult) tablet Take 1 tablet by mouth 1 (one) time each day Active acetaminophen (TYLENOL) 325 MG tablet Take 2 tablets by mouth 2 (two) times a day Active Docusate Sodium (DSS) 100 MG capsule [...] mouth 1 (one) time each day Active fludrocortison e 0.1 MG tablet Take 1 tablet by [...] alfuzosin (UROXATRAL) 10 MG 24 hr tablet 01/23/20 22 Active clomiPRAMINE (ANAFRANIL) 50 MG capsule 01/17/20 22 Active ketorolac (ACULAR) 0.5 % ophthalmic solution 12/14/19 22 Active moxifloxacin (VIGAMOX) 0.5 % ophthalmic solution 11/20/19 22 Active prednisoLONE acetate (PRED FORTE) 1 % ophthalmic suspension 12/14/19 22 Active cloZAPine (CLOZARIL) 200 MG tablet 01/27/20 22 Active albuterol HFA (PROVENTIL HFA;VENTOLIN HFA) 108 (90 Base) MCG/ACT inhaler Inhale 2 puffs every 6 (six) hours if needed for wheezing Active hydrocortisone (CORTEF) 10 MG tablet 07/26/20 22 Active omeprazole (PriLOSEC) [address] capsule 07/05/20 22 Active polyethylene glycol-electro lytes (NULYTELY) 420 g solution 07/13/20 22 Active amLODIPine (NORVASC) 5 MG tablet 06/18/20 23 Active clomiPRAMINE (ANAFRANIL) 25 MG capsule 07/05/20 23 Active clomiPRAMINE (ANAFRANIL) 75 MG capsule 07/05/20 23 Active cloZAPine (CLOZARIL) 100 MG tablet 07/10/20 23 Active Menthol, Topical Analgesic, (BENGAY PAIN RELIEF + MASSAGE EX) Apply topically Active traMADol (ULTRAM) 50 MG tablet 12/30/19 25 Active calcitriol (ROCALTROL) 0.25 MCG capsule Take 1 capsule by mouth 2 (two) times a week 025 Discontinued Active Problems Problem Noted Date Diagnosed Date Obese class II 07/12/2023 07/12/2023 Orthostatic hypotension 02/24/2021 Acute nontraumatic kidney injury 02/21/2021 Chronic kidney disease stage 3 02/21/2021 Proteinuria 02/21/2021 Encounters Date Type Department Care Team Description 05/07/2025 10:00 AM EDT [facility] [address] [phone] Terrance Downing MD Chronic kidney disease, stage 4 (severe) (HCC) (Primary Dx); Hyperkalemia; Orthostatic hypotension; Anemia in chronic kidney disease from Last 3 Months Social History Tobacco [...] Sign Reading Time Taken Comments Blood Pressure 118/72 05/07/2025 10:16 AM EDT Pulse 102 05/07/2025 10:16 AM EDT Temperature - - Respiratory Rate - - Oxygen Saturation 97% 07/12/2023 2:31 PM EDT Inhaled Oxygen Concentration - - Weight 105 kg (231 lb) 05/07/2025 10:16 AM EDT Height 163.8 cm (5' 4.5 ) 07/12/2023 2:31 PM EDT Body Mass Index 39.04 07/12/2023 2:31 PM EDT Plan of Treatment Upcoming Encounters Date Type Department Care Team (Late st Contact Info) Description 09/06/2025 10:30 AM EST Office Visit [facility] P. [address] [phone] Terrance Downing MD [address] [phone] Health Maintenance Due Date Last Done Comments Pneumococcal Vaccine: 50+ Ye ars (1 of 2 - PCV) 1975 Colorectal Cancer Screening: Annual FOBT 2005 Colorectal Cancer Screening: Colonoscopy 2005 Colorectal Cancer Screening: Sigmoidoscopy 2005 Influenza Vaccine (#1) 2025 Hepatitis B Vaccine Aged Out No longe r eligible based on patient's age to complete this topic Insurance Medicare [facility] Medicare [facility] Care Teams Visual And Stock Associate Relationship Specialty Start Date End Date Forest Wood DO [address] [place], [place] PCP - General 09/30/20
== END 2025-05-29 11:37 | disposition home or self-care (01) ==
LOC: HO.HUSH 09:45
PROVIDERS: PCP Hospitalist; Visit Provider Urology
DX: Z13.9 Encounter for screening, unspecified (principal)

== ENCOUNTER → 2025-05-29 09:44 | Outpatient (BNVA) | payer MEDICARE, MEDICAID, SELFPAY | PROVIDERS: PCP Hospitalist; Visit Provider Urology | DX: R35.1 Nocturia (principal); N31.9 Neuromuscular dysfunction of bladder, unspecified; Z13.9 Encounter for screening, unspecified | CPT/HCPCS: 51798; 81003; 99212 ==

== ENCOUNTER 2025-06-04 08:55 | Outpatient (AMB) | payer MEDICARE, MEDICAID, SELFPAY ==
--- NOTE | 2025-06-04 09:07 | MHC.OFFVIS ---
Vital Signs 06/04/25 09:14 Height 5 ft 4.5 in Weight 232 lb 8 oz BMI 39.3 BP 110/62 Blood Pressure Location Lt brachial Position Sitting Pulse 112 H Intake Visit Reasons: recurrent SBO Intake Note: Patient is seen in office for ER follow up visit, recurrent small bowel obstruction. Pt c/o: discomfort after meals, is better than before, denies any concerns regarding n/v/d/c, is feeling better ER:02/24/25 Surface Supply Breathing Apparatus Required: No Accompanied by: Other Relationship Allergies NSAIDS (Non-Steroidal Anti-Inflamma (NSAIDS (NON-STEROIDAL ANTI-INFLAMMA) Allergy (Unknown, Verified 06/04/25 09:13) UNKNOWN Medication List - Last Reconciled 06/04/25 by Bryson Pascual MD acetaminophen 650 mg PO Q6H PRN MDD 3000mg/24 hrs albuterol sulfate 90 mcg/actuation 2 puffs inhalation Q4H PRN alfuzosin ER 10 mg PO DAILY alum-mag hydroxide-simeth 200-200-20 mg/5 mL 30 mL PO Q4H PRN amlodipine 10 mg (2 x 5 mg) PO DAILY ascorbic acid (vitamin C) (Vitamin C) 500 mg PO DAILY bisacodyl 10 mg OH DAILY PRN calcitriol 0.25 mcg PO TUFR carboxymethylcellulose sodium 1% (Artificial Tears (carboxymethylcellulose)) 1 drp ophthalmic (eye) BID clomipramine 100 mg PO BEDTIME clozapine 100 mg PO DAILY clozapine 200 mg PO BEDTIME docusate sodium 100 mg PO BID ergocalciferol (vitamin D2) 1,250 mcg PO FR fenofibrate nanocrystallized 145 mg PO DAILY ferrous sulfate 325 mg PO DAILY fludrocortisone 0.2 mg PO DAILY gabapentin 200 mg PO TID guaifenesin 200 mg PO Q4H PRN hydrocortisone 10 mg PO TID loratadine 10 mg PO DAILY PRN menthol 5% (Bengay Ultra Strength (menthol)) 1 patch topical Q8H PRN multivitamin 1 tab PO DAILY naloxone 4 mg/actuation (Narcan) 4 mg intranasal Q3M PRN omeprazole 40 mg PO BID@0630,1630 sennosides (senna) 8.6 mg PO DAILY PRN sennosides (senna) 8.6 mg PO BID tramadol 50 mg PO TID HPI Comments Details: 69-year-old male patient with a history of traumatic brain injury, BPH, hepatitis-C, hyperlipidemia, epilepsy, bipolar disorder, ADHD, CKD 3, GERD recently admitted on 02/19/2025 for partial small-bowel obstruction. He was treated with nasogastric tube decompression and by the next day was much improved. He was gradually advanced over the next several days and subsequently discharged home on 02/24/2025 tolerating regular diet. Plan was to follow up in 1-2 weeks following discharge however he is now returning for his post hospitalization follow-up. He denies any ongoing abdominal symptoms but does have some abdominal discomfort when drinking carbonated beverages. [facility] Medical History Partial small bowel obstruction Schizoaffective disorder Chronic kidney disease, stage 3 Anemia Hyperlipidemia Orthostatic hypotension GERD (gastroesophageal reflux disease) Attention deficit hyperactivity disorder Neurogenic bladder Hematuria TBI (traumatic brain injury) Surgical History History of surgery Social History Household Members: Other Housing: Correction Do you presently have visiting nurse or other home services: Yes Alcohol intake: never Patient Tobacco Use Status: Former Tobacco user Tobacco use type: Cigarette and Cigar Advance Directives Date on File: 07/10/21 service: No Current occupational status: disabled Review of Systems Const All systems reviewed & are unremarkable except as noted in HPI and below Physical Exam Const General: comfortable Nutritional Appearance: obese Orientation/consciousness: patient oriented x3 Limitations: behavioral limitations HEENT Head: Yes normocephalic and Yes atraumatic Resp Effort & Inspection: normal respiratory effort, no audible wheezes, no cough and no respiratory distress GI Other: Obese abdomen, soft, nontender to palpation, non tympanitic to percussion. Skin Other: Warm, dry, no rash Neuro General: patient oriented x3 Extrem Other: No edema Assessment & Plan Assessment & Plan (1) Partial small bowel obstruction: Code(s): K56.600 - Partial intestinal obstruction, unspecified as to cause Category: Medical Plan 69-year-old male patient, [facility] returning for a post hospitalization visit. He has a history of partial small-bowel obstruction was admitted between 02/19/2025 and 02/24/2025. He now feels much improved and denies any ongoing abdominal symptoms. He should avoid eating fibrous foods and carbonated beverages to prevent further episodes of partial small-bowel obstruction. He should follow up as needed. Coding Level of Care Code Est Pt Level 3 (50802) Diagnoses Partial small bowel obstruction K56.600
[2025-06-04 09:14] VITALS: BP 110/62; PULSE 112; BMI 39.3
--- OUTSIDE RECORDS SUMMARY | 2025-06-04 10:18 | XMS_ITS | Encounter Summary ---
Author Organization [facility] Address [address] [place] [address] Care Team Providers Care Medical Secretary Name Role Phone Forest Wood MD Primary Care Provider [phone] Encounter Details Date Type Department Care Team (Late st Contact Info) Description 08/14/2024 Lab Requisition [facility] [address] [place] [address] Forest Wood MD [address] [place] [address] [address] [place] Vitamin D deficiency, unspecified Social History Tobacco [...] LAB CHEMISTRY METHOD 08/14/2024 7:39 AM EST [facility] Blood Venous blood specimen / Unknown 08/14/2024 6:35 AM EST 08/14/2024 7:06 AM EST us Forest Wood MD LAB BLOOD ORDERABLES Final Resul t [facility] [address] [place], [place] [address] [phone] documented in this encounter Visit Diagnoses Diagnosis Vitamin D deficiency, unspecified documented in this encounter Care Teams Medical Secretary Relationship Specialty Start Date End Date Forest Wood MD [address] [place] [address] [address] [place] PCP - General Internal Medicine 11/07/24 documented as of this encounter
--- OUTSIDE RECORDS SUMMARY | 2025-06-04 10:18 | XMS_ITS | Encounter Summary ---
Author Organization [facility] Address [address] [place] [address] Care Team Providers Care Testing Projects Administrator Name Role Phone Forest Wood MD Primary Care Provider [phone] Encounter Details Date Type Department Care Team (Latest Contact Info) Description 08/07/2024 Lab Requisition [facility] Lab [address] [facility] [place] [address] Forest Wood MD [address] [place] [address] [address] [place] Schizoaffective disorder, unspecified (CMS/HCC V24, CMS/HCC V28) Social History Tobacco Use Types Packs/Day Years [...] - 12.0 ug/mL 08/10/2024 11:26 AM EST [facility] Comment: If applicable, any drug confirmation testing reported here was developed and the performance characteristics determined by [facility]. This confirmation testing has not been cleared or approved by the FDA. The laboratory is regulated under CLIA as qualified to perform high-complexity testing. This test is used for patient testing purposes. It should not be regarded as investigational or for research. Test performed at [facility], [address], [place] [address] Darya Moore MD, PhD - Turbine Assembler Blood Venous blood specimen / Unknown 08/07/2024 6:20 AM EST 08/07/2024 7:05 AM EST us Forest Wood MD LAB BLOOD ORDERABLES Final Resul t Performing Organization Address [facility] Co de Phone Number [facility] [address] [place] [address] * (ABNORMAL) Creatinine (08/07/2024 6:20 AM EST) Creatinine 2.68(H) 0.70 - 1.30 mg/dL LAB CHEMISTRY METHOD 08/07/2024 7:33 AM EST [facility] eGFR 25(L) >=60 mL/min/1. 73m2 LAB CHEMISTRY METHOD 08/07/2024 7:33 AM EST [facility] Comment:Calculation based on the Chronic Kidney Disease Epidemiology Collaboration (CKD-EPI) equation refit without adjustment for race. Blood Venous blood specimen / Unknown 08/07/2024 6:20 AM EST 08/07/2024 7:05 AM EST us Forest Wood MD LAB BLOOD ORDERABLES Final Resul t Performing Organization Address City/[facility] Co de Phone Number [facility] [address] [place] [address], [place] [phone] documented in this encounter Visit Diagnoses Diagnosis Schizoaffective disorder, unspecified (CMS/HCC V24, CMS/HCC V28) documented in this encounter Care Teams Testing Projects Administrator Relationship Specialty Start Date End Date Forest Wood MD [address] [place] [address] [place] [address] PCP - General Internal Medicine 11/07/24 documented as of this encounter
--- OUTSIDE RECORDS SUMMARY | 2025-06-04 10:18 | XMS_ITS | Encounter Summary ---
Author Organization [facility] Address [address] [place] [address] Care Team Providers Care Planning Division Superintendent Name Role Phone Forest Wood MD Primary Care Provider [phone] Encounter Details Date Type Department Care Team (Latest Contact Info) Description 03/02/2025 Lab Requisition [facility] - Main Lab [address] [facility] [place] [address] Forest Wood MD [address] [place] [address] [address] [place] Hyperlipidemia, unspecified; Secondary hyperparathyroidism of renal origin (CMS/HCC V24); Encounter for other specified special examinations; Age-related osteoporosis without current pathological fracture Social History Tobacco Use Types Packs/Day Years [...] PANEL WITH REFLEX TO DIRECT LDL Routine 03/02/2025 6:45 AM EDT Hyperlipidemia, unspecified Secondary hyperparathyroidism of renal origin (CMS/HCC V24) Encounter for other specified special examinations Age-related osteoporosis without current pathological fracture CBC WITH AUTO DIFFERENTIAL Routine 03/02/2025 6:45 AM EDT Hyperlipidemia, unspecified Secondary hyperparathyroidism of renal origin (CMS/HCC V24) Encounter for other specified special examinations Age-related osteoporosis without current pathological fracture LAVENDER - EDTA Routine 03/02/2025 6:45 AM EDT Hyperlipidemia, unspecified Secondary hyperparathyroidism of renal origin (CMS/HCC V24) Encounter for other specified special examinations Age-related osteoporosis without current pathological fracture CBC AND DIFFERENTIAL Routine 03/02/2025 6:45 AM EDT Hyperlipidemia, unspecified Secondary hyperparathyroidism of renal origin ([facility] V[facility]) Encounter for other specified special examinations Age-related osteoporosis without current pathological fracture PHOSPHORUS Routine 03/02/2025 6:45 AM EDT Hyperlipidemia, unspecified Secondary hyperparathyroidism of renal origin ([facility] V24) Encounter for other specified special examinations Age-related osteoporosis without current pathological fracture PARATHYROID HORMONE INTACT Routine 03/02/2025 6:45 AM EDT Hyperlipidemia, unspecified Secondary hyperparathyroidism of renal origin ([facility] V24) Encounter for other specified special examinations Age-related osteoporosis without current pathological fracture documented in this encounter Results * Lavender tube (03/02/2025 6:45 AM EDT) Pathologist [facility] Extra Tube Hold for add-ons. 03/02/2025 9:01 AM EDT [facility] Comment:Auto resulted. Blood Venous blood specimen / Unknown 03/02/2025 6:45 AM EDT 03/02/2025 7:53 AM EDT us Forest Wood MD LAB BLOOD ORDERABLES Final Resul t [facility] [address] [place] [address], * (ABNORMAL) CBC auto differential (03/02/2025 6:45 AM EDT) Pathologist [facility] WBC 17.0(H) 4.8 - 10.8 K/[facility] HEMETOLOGY METHOD 03/02/2025 8:18 AM EDT [facility] RBC 4.40(L) 4.50 - 5.50 M/[facility] LAB HEMETOLOGY METHOD 03/02/2025 8:18 AM EDT [facility] Hemoglobin 11.6(L) 13.5 - 17.5 g/dL LAB HEMETOLOGY METHOD 03/02/2025 8:18 AM [facility] Hematocrit 38.7(L) 42.0 - 54.0 % LAB HEMETOLOGY METHOD 03/02/2025 8:18 AM [facility] MCV 88.8 79.0 - 98.0 FL LAB HEMETOLOGY METHOD 03/02/2025 8:18 AM [facility] MCH 26.6(L) 27.0 - 32.0 pcg LAB HEMETOLOGY METHOD 03/02/2025 8:18 AM [facility] MCHC 30.0(L) 32.0 - 37.0 g/dL LAB HEMETOLOGY METHOD 03/02/2025 8:18 AM [facility] RDW 14.0 11.0 - 15.0 % LAB HEMETOLOGY METHOD 03/02/2025 8:18 AM [facility] Platelets 276 130 - 400 K/mcL LAB HEMETOLOGY METHOD 03/02/2025 8:18 AM [facility] MPV 10.1 7.0 - 11.0 FL LAB HEMETOLOGY METHOD 03/02/2025 8:18 AM [facility] NRBC 0.0 <1.0 % LAB HEMETOLOGY METHOD 03/02/2025 8:18 AM [facility] NRBC Absolute 0.00 <0.10 K/mcL LAB HEMETOLOGY METHOD 03/02/2025 8:18 AM [facility] Neutrophils Relative 72.8 % LAB HEMETOLOGY METHOD 03/02/2025 8:18 AM [facility] Lymphocytes Relative 19.1 % LAB HEMETOLOGY METHOD 03/02/2025 8:18 AM [facility] Monocytes Relative 5.0 % LAB HEMETOLOGY METHOD 03/02/2025 8:18 AM [facility] Eosinophils Relative 1.7 % LAB HEMETOLOGY METHOD 03/02/2025 8:18 AM EDT [facility] Basophils Relative 0.5 % LAB HEMETOLOGY METHOD 03/02/2025 8:18 AM EDT [facility] Immature Granulocytes Relative 0.9 % LAB HEMETOLOGY METHOD 03/02/2025 8:18 AM EDT [facility] Neutrophils Absolute 12.38(H) 1.50 - 7.00 K/mcL LAB HEMETOLOGY METHOD 03/02/2025 8:18 AM EDT [facility] Lymphocytes Absolute 3.24 1.00 - 5.00 K/mcL LAB HEMETOLOGY METHOD 03/02/2025 8:18 AM EDT [facility] Monocytes Absolute 0.85 0.20 - 1.00 K/mcL LAB HEMETOLOGY METHOD 03/02/2025 8:18 AM EDT [facility] Eosinophils Absolute 0.29 0.00 - 0.50 K/mcL LAB HEMETOLOGY METHOD 03/02/2025 8:18 AM EDT [facility] Basophils Absolute 0.08 0.00 - 0.20 K/mcL LAB HEMETOLOGY METHOD 03/02/2025 8:18 AM EDT [facility] Immature Granulocytes Absolute 0.15(H) 0.00 - 0.03 K/mcL LAB HEMETOLOGY METHOD 03/02/2025 8:18 AM EDT [facility] Blood Venous blood specimen / Unknown 03/02/2025 6:45 AM EDT 03/02/2025 7:53 AM EDT us Forest Wood MD LAB BLOOD ORDERABLES Final Resul t [facility] [address] [place] [address], * Phosphorus (03/02/2025 6:45 AM EDT) [facility] Phosphorus 4.4 2.5 - 4.5 mg/dL LAB CHEMISTRY METHOD 03/02/2025 8:39 AM EDT [facility] Blood Venous blood specimen / Unknown 03/02/2025 6:45 AM EDT 03/02/2025 7:53 AM EDT us Forest Wood MD LAB BLOOD ORDERABLES Final Resul t Performing Organization Address [facility]/ZIP Co de Phone Number [facility] [address] [place] [address], [place] [phone] * Parathyroid hormone intact (03/02/2025 6:45 AM EDT) [facility] PTH 77.3 18.5 - 88.0 pcg/mL LAB CHEMISTRY METHOD 03/02/2025 10:52 AM EDT [facility] Blood Venous blood specimen / Unknown 03/02/2025 6:45 AM EDT 03/02/2025 7:53 AM EDT us Forest Wood MD LAB BLOOD ORDERABLES Final Resul t Performing Organization Address [facility] Co de Phone Number [facility] [address] [place] [address], [place] [phone] * (ABNORMAL) Lipid panel with reflex to direct LDL (03/02/2025 6:45 AM EDT) [facility] Cholesterol 152 0 - 200 mg/dL LAB CHEMISTRY METHOD 03/02/2025 8:39 AM EDT [facility] Triglycerides 196(H) 0 - 150 mg/dL LAB CHEMISTRY METHOD 03/02/2025 8:39 AM EDT [facility] HDL 40 >=40 mg/dL LAB CHEMISTRY METHOD 03/02/2025 8:39 AM EDT [facility] LDL Calculated 73 0 - 100 mg/dL LAB CHEMISTRY METHOD 03/02/2025 8:39 AM EDT [facility] VLDL Cholesterol Yonathan 39.2 mg/dL LAB CHEMISTRY METHOD 03/02/2025 8:39 AM EDT [facility] Non HDL Chol. (LDL+VLDL) 112 <145 mg/dL LAB CHEMISTRY METHOD 03/02/2025 8:39 AM EDT [facility] Chol/HDL Ratio 3.8 0.0 - 4.4 LAB CHEMISTRY METHOD 03/02/2025 8:39 AM EDT [facility] Blood Venous blood specimen / Unknown 03/02/2025 6:45 AM EDT 03/02/2025 7:53 AM EDT us Forest Wood MD LAB BLOOD ORDERABLES Final Resul t [facility] [address] [place] [address], documented in this encounter Visit Diagnoses Diagnosis Hyperlipidemia, unspecified Secondary hyperparathyroidism of renal origin (CMS/HCC V24) Secondary hyperparathyroidism (of renal origin) Encounter for other specified special examinations Age-related osteoporosis without current pathological fracture documented in this encounter Care Teams Planning Division Superintendent Relationship Specialty Start Date End Date Forest Wood MD [address] [place] [address] Dr [address] [place] PCP - General Internal Medicine 11/07/24 documented as of this encounter
--- OUTSIDE RECORDS SUMMARY | 2025-06-04 10:18 | XMS_ITS | Encounter Summary ---
Author Organization [facility] Address [address] [place] [address] Care Team Providers Care Insurance Claims Clerk Name Role Phone Forest Wood MD Primary Care Provider [phone] Encounter Details Date Type Department Care Team (Late st Contact Info) Description 05/10/2025 Lab Requisition [facility] - Main Lab [address] [facility] [employer] [place] [address] Forest Wood MD [address] [place] [address] Dr [address] [place] Chronic kidney disease, stage 3b (CMS/HCC V24, CMS/HCC V28) Social History Tobacco Use Types Packs/Day Years Used Date Smoking Tobacco: Never Assessed Sex and Gender Information Value Date Recorded Sex Assigned at Not on file Legal Sex Male 6:30 AM EST Gender Identity Not on file Sexual Orientation Not on file documented as of this encounter Plan of Treatment Not on file documented as of this encounter Visit Diagnoses Diagnosis Chronic kidney disease, stage 3b (CMS/HCC V24, CMS/HCC V28) documented in this encounter Care Teams Insurance Claims Clerk Relationship Specialty Start Date End Date Forest Wood MD [address] [place] [address] Dr [address] [place] PCP - General Internal Medicine 11/07/24 documented as of this encounter
--- OUTSIDE RECORDS SUMMARY | 2025-06-04 10:18 | XMS_ITS | Clinical Summary ---
Author Organization 299 [facility] Address [address] [place] [address] Phone Care Team Providers Care Radioisotope Technologist Name Role Phone Forest Wood MD Primary Care Provider [phone] Encounters Date Type Department Care Team Description 05/25/2025 Lab Requisition [facility] Lab [address] [place] [phone] Forest Wood MD Schizoaffective disorder, unspecified (CMS/HCC V24, CMS/[facility] V28) 05/16/2025 Lab Requisition [facility] Lab [address] [place] [phone] Forest Wood MD 05/10/2025 Lab Requisition [facility] Lab [address] [place] [phone] Forest Wood MD Chronic kidney disease, stage 3b (CMS/HCC V24, CMS/HCC V28) 05/08/2025 Lab Requisition [facility] Lab [address] [place] [phone] Forest Wood MD 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 05/04/2025 Lab Requisition [facility] Lab [address] [place] [phone] Forest Wood MD 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; Chronic kidney disease, stage 3b (CMS/HCC V24, CMS/HCC V28) 03/30/2025 Lab Requisition [facility] Lab [address] [place] [phone] Forest Wood MD Schizoaffective disorder, unspecified (CMS/HCC V24, CMS/[facility] V28) from Last 3 Months Social History [...] 2006 Abdominal Aortic Aneurysm (AAA) Screen 08/23/2022 Falls Risk Assessment 08/23/2022 Hepatitis C Screening 08/23/2022 Medicare Annual Wellness Visit 08/23/2022 Social Influencers of Health Screening 08/23/2022 Depression Screening 09/20/2024 COVID-19 Vaccine (1 - 2023-2 5 season) 2025 Influenza Vaccine (#1) 2025 Colorectal Cancer Screening: FIT-DNA (Cologuard) 01/05/2027 01/06/2024, 01/06/2024 Cholesterol Screening (Lipid Panel) 03/02/2030 03/02/2025, 09/08/2024, 07/26/2024 RSV Immunization Adult Patients (1 [...] Diagnosis Comments VITAMIN D 25 HYDROXY Routine 05/25/2025 7:04 AM EDT Schizoaffective disorder, unspecified (CMS/HCC V24, CMS/HCC V28) URINALYSIS WITH REFLEX MICROSCOPIC Routine 05/16/2025 12:00 AM EDT URINALYSIS WITH REFLEX MICROSCOPIC Routine 05/16/2025 12:00 AM EDT CBC WITH AUTO DIFFERENTIAL Routine 05/08/2025 6:47 AM EDT 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 CBC AND DIFFERENTIAL Routine 05/08/2025 6:47 AM EDT 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 VITAMIN D 25 HYDROXY Routine 05/08/2025 6:47 AM EDT 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 ALBUMIN Routine 05/08/2025 6:47 AM EDT 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 PARATHYROID HORMONE INTACT Routine 05/08/2025 6:47 AM EDT 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 RENAL FUNCTION PANEL Routine 05/08/2025 6:47 AM EDT 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 V28) LIPID PANEL WITH REFLEX TO DIRECT LDL Routine 03/02/2025 6:45 AM EDT Hyperlipidemia, unspecified Secondary hyperparathyroidism of renal origin ([facility] V24) Encounter for other specified special examinations Age-related osteoporosis without current pathological fracture from Last 3 Months or Most Recently Relevant to Health Maintenance Results * Vitamin D 25 hydroxy (05/25/2025 7:04 AM EDT) Only the most recent of2 resultswithin the time period is included. [facility] Vit D, 25-Hydroxy 49.8 30.0 - 80.0 ng/mL LAB CHEMISTRY METHOD 05/25/2025 8:57 AM EDT [facility] Blood Venous blood specimen / Unknown 05/25/2025 7:04 AM EDT 05/25/2025 8:00 AM EDT us Forest Wood MD LAB BLOOD ORDERABLES Final Resul t [facility] [address] [place] [address], [place] [phone] * (ABNORMAL) Urinalysis with reflex microscopic (05/16/2025 12:00 AM EDT) [facility] [place] Urine 1.012 1.003 - 1.030 LAB URINALYSIS - AUTOMATED METHOD 05/16/2025 7:44 PM EDT [facility] pH, Urine 6.0 5.0 - 8.0 pH LAB URINALYSIS - AUTOMATED METHOD 05/16/2025 7:44 PM EDT [facility] Leukocytes, Urine Negative Negative LAB URINALYSIS - AUTOMATED METHOD 05/16/2025 7:44 PM EDT [facility] Nitrite, Urine Negative Negative LAB URINALYSIS - AUTOMATED METHOD 05/16/2025 7:44 PM [facility] Protein, Urine 100(A) <=Trace mg/dL LAB URINALYSIS - AUTOMATED METHOD 05/16/2025 7:44 PM [facility] Glucose, Urine Negative Negative mg/dL LAB URINALYSIS - AUTOMATED METHOD 05/16/2025 7:44 PM [facility] Ketones, Urine Negative Negative mg/dL LAB URINALYSIS - AUTOMATED METHOD 05/16/2025 7:44 PM [facility] Urobilinogen, Urine 1.0 0.2 - 1.0 mg/dL LAB URINALYSIS - AUTOMATED METHOD 05/16/2025 7:44 PM [facility] Bilirubin, Urine Negative Negative LAB URINALYSIS - AUTOMATED METHOD 05/16/2025 7:44 PM [facility] Blood, Urine Negative Negative LAB URINALYSIS - AUTOMATED METHOD 05/16/2025 7:44 PM [facility] RBC, Urine 0.5 0 - 4 /HPF LAB URINALYSIS - AUTOMATED METHOD 05/16/2025 7:44 PM [facility] WBC, Urine 0.2 0 - 4 /HPF LAB URINALYSIS - AUTOMATED METHOD 05/16/2025 7:44 PM [facility] Squamous Epithelial, Urine 5 0 - 60 /LPF LAB URINALYSIS - AUTOMATED METHOD 05/16/2025 7:44 PM [facility] Bacteria, Urine Negative Negative /HPF LAB URINALYSIS - AUTOMATED METHOD 05/16/2025 7:44 PM [facility] Hyaline Casts, Urine 0.0 0 - 3 /LPF LAB URINALYSIS - AUTOMATED METHOD 05/16/2025 7:44 PM [facility] Urine Urine specimen obtained by clean catch procedure / Unknown 05/16/2025 05/16/2025 6:55 PM EDT us Forest Wood MD LAB URINE ORDERABLES Final Resul t [facility] [address] [place] [address], [place] [phone] * (ABNORMAL) CBC auto differential (05/08/2025 6:47 AM EDT) Only the most recent of2 resultswithin the time period is included. WBC 14.3(H) 4.8 - 10.8 K/mcL LAB HEMETOLOGY METHOD 05/08/2025 7:54 AM EDT [facility] RBC 4.40(L) 4.50 - 5.50 M/mcL LAB HEMETOLOGY METHOD 05/08/2025 7:54 AM EDT [facility] Hemoglobin 11.9(L) 13.5 - 17.5 g/dL LAB HEMETOLOGY METHOD 05/08/2025 7:54 AM EDT [facility] Hematocrit 39.3(L) 42.0 - 54.0 % LAB HEMETOLOGY METHOD 05/08/2025 7:54 AM EDT [facility] MCV 88.7 79.0 - 98.0 FL LAB HEMETOLOGY METHOD 05/08/2025 7:54 AM EDT [facility] MCH 26.9(L) 27.0 - 32.0 pcg LAB HEMETOLOGY METHOD 05/08/2025 7:54 AM EDT [facility] MCHC 30.3(L) 32.0 - 37.0 g/dL LAB [facility]EMETOLOGY METHOD [facility]25 [facility] RDW 14.2 11.0 - 15.0 % LAB HEMETOLOGY METHOD 05/08/2025 7[facility] Platelets 267 130 - 400 K/mcL LAB HEMETOLOGY METHOD 05/08/2025 7:[facility] MPV 9.9 7.0 - 11.0 FL LAB HEMETOLOGY METHOD 05/08/2025 7:54 AM [facility] NRBC 0.0 <1.0 % LAB HEMETOLOGY METHOD 05/08/2025 7:54 AM [facility] NRBC Absolute 0.00 <0.10 K/mcL LAB HEMETOLOGY METHOD 05/08/2025 7:[facility] Neutrophils Relative 71.6 % LAB HEMETOLOGY METHOD 05/08/2025 7:54 AM [facility] Lymphocytes Relative 17.7 % LAB HEMETOLOGY METHOD 05/08/2025 7:54 AM [facility] Monocytes Relative 6.5 % LAB HEMETOLOGY METHOD 05/08/2025 7:54 AM [facility] Eosinophils Relative 2.3 % LAB HEMETOLOGY METHOD 05/08/2025 7:54 AM [facility] Basophils Relative 0.8 % LAB HEMETOLOGY METHOD 05/08/2025 7:54 AM [facility] Immature Granulocytes Relative 1.1 % LAB HEMETOLOGY METHOD 05/08/2025 7:54 AM [facility] Neutrophils Absolute 10.21(H) 1.50 - 7.00 K/mcL LAB HEMETOLOGY METHOD 05/08/2025 7:54 AM [facility] Lymphocytes Absolute 2.52 1.00 - 5.00 K/mcL LAB HEMETOLOGY METHOD 05/08/2025 7:54 AM [facility] Monocytes Absolute 0.93 0.20 - 1.00 K/mcL LAB HEMETOLOGY METHOD 05/08/2025 7:54 AM [facility] Eosinophils Absolute 0.33 0.00 - 0.50 K/mcL LAB HEMETOLOGY METHOD 05/08/2025 7:54 AM EDT [facility] Basophils Absolute 0.11 0.00 - 0.20 K/[facility] LAB HEMETOLOGY METHOD 05/08/2025 7:54 AM EDT [facility] Immature Granulocytes Absolute 0.15(H) 0.00 - 0.03 K/[facility] LAB HEMETOLOGY METHOD 05/08/2025 7:54 AM EDT [facility] Blood Venous blood specimen / Unknown 05/08/2025 6:47 AM EDT 05/08/2025 7:35 AM EDT us Forest Wood MD LAB BLOOD ORDERABLES Final Resul t Performing Organization Address [facility] Co de Phone Number [facility] [address] [place] [address], * (ABNORMAL) Parathyroid hormone intact (05/08/2025 6:47 AM EDT) PTH 104.3(H) 18.5 - 88.0 pcg/mL LAB CHEMISTRY METHOD 05/08/2025 10:33 AM EDT [facility] Blood Venous blood specimen / Unknown 05/08/2025 6:47 AM EDT 05/08/2025 7:35 AM EDT us Forest Wood MD LAB BLOOD ORDERABLES Final Resul t Performing Organization Address City/[facility]/ZIP Co de Phone Number [facility] [address] [place] [address], [place] [phone] * Albumin (05/08/2025 6:47 AM EDT) Albumin 3.4 3.2 - 5.0 g/dL LAB CHEMISTRY METHOD 05/08/2025 9:39 AM EDT [facility] Blood Venous blood specimen / Unknown 05/08/2025 6:47 AM EDT 05/08/2025 7:35 AM EDT us Forest Wood MD LAB BLOOD ORDERABLES Final Resul t [facility] [address] [place] [address], * (ABNORMAL) Renal function panel (05/08/2025 6:47 AM EDT) Sodium 141 133 - 145 mmol/L LAB CHEMISTRY METHOD 05/08/2025 9:39 AM [facility] Potassium 4.4 3.5 - 5.5 mmol/L LAB CHEMISTRY METHOD 05/08/2025 9:39 AM [facility] Chloride 109 96 - 110 mmol/L LAB CHEMISTRY METHOD 05/08/2025 9:39 AM [facility] CO2 27 21 - 32 mmol/L LAB CHEMISTRY METHOD 05/08/2025 9:39 AM [facility] Anion Gap 5 3 - 11 LAB CHEMISTRY METHOD 05/08/2025 9:39 AM [facility] Glucose 77 70 - 100 mg/dL LAB CHEMISTRY METHOD 05/08/2025 9:39 AM [facility] BUN 43(H) 5 - 25 mg/dL LAB CHEMISTRY METHOD 05/08/2025 9:39 AM [facility] Creatinine 2.75(H) 0.70 - 1.30 mg/dL LAB CHEMISTRY METHOD 05/08/2025 9:39 AM [facility] eGFR 24(L) >=60 mL/min/1. 73m2 LAB CHEMISTRY METHOD 05/08/2025 9:39 AM [facility] Comment:Calculation based on the Chronic Kidney Disease Epidemiology Collaboration (CKD-EPI) equation refit without adjustment for race. BUN/Creatinine Ratio 15.6 LAB CHEMISTRY METHOD 05/08/2025 9:39 AM EDT [facility] Albumin 3.4 3.2 - 5.0 g/dL LAB CHEMISTRY METHOD 05/08/2025 9:39 AM [facility] Calcium 9.4 8.5 - 10.5 mg/dL LAB CHEMISTRY METHOD 05/08/2025 9:39 AM [facility] Phosphorus 4.9(H) 2.5 - 4.5 mg/dL LAB CHEMISTRY METHOD 05/08/2025 9:39 AM T [facility] Blood Venous blood specimen / Unknown 05/08/2025 6:47 AM EDT 05/08/2025 7:35 AM EDT us Forest Wood MD LAB BLOOD ORDERABLES Final Resul t [facility] [address] [place] [address], [place] [phone] * (ABNORMAL) Comprehensive metabolic panel (05/04/2025 6:35 AM EDT) Sodium 141 133 - 145 mmol/L LAB CHEMISTRY METHOD 05/04/2025 7:49 AM [facility] Potassium 4.2 3.5 - 5.5 mmol/L LAB CHEMISTRY METHOD 05/04/2025 7:49 AM [facility] Chloride 109 96 - 110 mmol/L LAB CHEMISTRY METHOD 05/04/2025 7:49 AM [facility] CO2 28 21 - 32 mmol/L LAB CHEMISTRY METHOD 05/04/2025 7:49 AM [facility] Anion Gap 4 3 - 11 LAB CHEMISTRY METHOD 05/04/2025 7:49 AM [facility] Glucose 85 70 - 100 mg/dL LAB CHEMISTRY METHOD 05/04/2025 7:49 AM [facility] BUN 43(H) 5 - 25 mg/dL LAB CHEMISTRY METHOD 05/04/2025 7:49 AM [facility] Creatinine 2.87(H) 0.70 - 1.30 mg/dL LAB CHEMISTRY METHOD 05/04/2025 7:49 AM [facility] eGFR 23(L) >=60 mL/min/1. 73m2 LAB CHEMISTRY METHOD 05/04/2025 7:49 AM [facility] Comment:Calculation based on the Chronic Kidney Disease Epidemiology Collaboration (CKD-EPI) equation refit without adjustment for race. BUN/Creatinine Ratio 15.0 LAB CHEMISTRY METHOD 05/04/2025 7:49 AM [facility] Calcium 8.9 8.5 - 10.5 mg/dL LAB CHEMISTRY METHOD 05/04/2025 7:49 AM [facility] AST (SGOT) 23 10 - 42 unit/L LAB CHEMISTRY METHOD 05/04/2025 7:49 AM [facility] ALT (SGPT) 29 10 - 60 unit/L LAB CHEMISTRY METHOD 05/04/2025 7:49 AM [facility] Alkaline Phosphatase 82 42 - 121 unit/L LAB CHEMISTRY METHOD 05/04/2025 7:49 AM [facility] Total Protein 6.9 6.0 - 8.0 g/dL LAB CHEMISTRY METHOD 05/04/2025 7:49 AM [facility] Albumin 3.2 3.2 - 5.0 g/dL LAB CHEMISTRY METHOD 05/04/2025 7:49 AM [facility] Total Bilirubin 0.3 0.0 - 1.4 mg/dL LAB CHEMISTRY METHOD 05/04/2025 7:49 AM [facility] Blood Venous blood specimen / Unknown 05/04/2025 6:35 AM EDT 05/04/2025 7:14 AM EDT Forest Wood MD LAB BLOOD ORDERABLES Final Resul t [facility] [address] [place] [address], * (ABNORMAL) Complete blood count (03/30/2025 6:33 AM EDT) WBC 14.6(H) 4.8 - 10.8 K/mcL LAB HEMETOLOGY METHOD 03/30/2025 7:24 AM EDT [facility] RBC 4.30(L) 4.50 - 5.50 M/mcL LAB HEMETOLOGY METHOD 03/30/2025 7:24 AM EDT [facility] Hemoglobin 11.5(L) 13.5 - 17.5 g/dL LAB HEMETOLOGY METHOD 03/30/2025 7:24 AM EDT [facility] Hematocrit 37.8(L) 42.0 - 54.0 % LAB HEMETOLOGY METHOD 03/30/2025 7:24 AM EDT [facility] MCV 88.7 79.0 - 98.0 FL LAB HEMETOLOGY METHOD 03/30/2025 7:24 AM EDT [facility] MCH 27.0 27.0 - 32.0 pcg LAB HEMETOLOGY METHOD [facility]2025 [facility] MCHC 30.4(L) 32.0 - 37.0 g/dL LAB HEMETOLOGY METHOD 03/30/2025 7:24 AM EDT [facility] RDW 14.5 11.0 - 15.0 % LAB HEMETOLOGY METHOD 03/30/2025 7:24 AM EDT [facility] Platelets 261 130 - 400 K/mcL LAB HEMETOLOGY METHOD 03/30/2025 7:24 AM EDT [facility] MPV 9.9 7.0 - 11.0 FL LAB HEMETOLOGY METHOD 03/30/2025 7:24 AM EDT [facility] NRBC 0.0 <1.0 % LAB HEMETOLOGY METHOD 03/30/2025 7:24 AM EDT [facility] NRBC Absolute 0.00 <0.10 K/mcL LAB HEMETOLOGY METHOD 03/30/2025 7:24 AM [facility] Blood Venous blood specimen / Unknown 03/30/2025 6:33 AM EDT 03/30/2025 7:11 AM EDT us Forest Wood MD LAB BLOOD ORDERABLES Final Resul t [facility] [address] [place] [address], [place] [phone] * (ABNORMAL) Lipid panel with reflex to direct LDL (03/02/2025 6:45 AM EDT) Cholesterol 152 0 - 200 mg/dL LAB CHEMISTRY METHOD 03/02/2025 8:39 AM [facility] Triglycerides 196(H) 0 - 150 mg/dL LAB CHEMISTRY METHOD 03/02/2025 8:39 AM [facility] HDL 40 >=40 mg/dL LAB CHEMISTRY METHOD 03/02/2025 8:39 AM [facility] LDL Calculated 73 0 - 100 mg/dL LAB CHEMISTRY METHOD 03/02/2025 8:39 AM [facility] VLDL Cholesterol Yonathan 39.2 mg/dL LAB CHEMISTRY METHOD 03/02/2025 8:39 AM [facility] Non HDL Chol. (LDL+VLDL) 112 <145 mg/dL LAB CHEMISTRY METHOD 03/02/2025 8:39 AM [facility] Chol/HDL Ratio 3.8 0.0 - 4.4 LAB CHEMISTRY METHOD 03/02/2025 8:39 AM EDT [facility] Blood Venous blood specimen / Unknown 03/02/2025 6:45 AM EDT 03/02/2025 7:53 AM EDT us Forest Wood MD LAB BLOOD ORDERABLES Final Resul t [facility] [address] [place] [address], [place] [phone] from Last 3 Months or Most Recently Relevant to Health Maintenance Insurance MEDICARE MEDICAID - [place] Care Teams Radioisotope Technologist Relationship Specialty Start Date End Date Forest Wood MD [address] [place] [address] Dr [address] LOYD Banks PCP - General Internal Medicine 11/07/24
--- OUTSIDE RECORDS SUMMARY | 2025-06-04 10:18 | XMS_ITS | Encounter Summary ---
Author Organization [facility] Address [address] [place] [address] Care Team Providers Care Preassembler Printed Circuit Board Name Role Phone Forest Wood MD Primary Care Provider [phone] Encounter Details Date Type Department Care Team (Latest Contact Info) Description 09/07/[address] [facility] Lab [address] [facility] [email or web address] [address] Forest Wood MD [address] [place] [address] Dr [address] [place], [place] Schizoaffective disorder, unspecified (CMS/HCC V24, CMS/HCC V28) [...] PM EST) WBC 12.4(H) 4.8 - 10.8 K/[facility] LAB HEMETOLOGY METHOD 09/07/2024 4:56 PM EST [facility] RBC 4.40(L) 4.50 - 5.50 M/[facility] LAB HEMETOLOGY METHOD 09/07/2024 4:56 PM [facility] Hemoglobin 12.0(L) 13.5 - 17.5 g/dL LAB HEMETOLOGY METHOD 09/07/2024 4:56 PM [facility] Hematocrit 39.7(L) 42.0 - 54.0 % LAB HEMETOLOGY METHOD 09/07/2024 4:56 PM [facility] MCV 89.6 79.0 - 98.0 FL LAB HEMETOLOGY METHOD 09/07/2024 4:56 PM [facility] MCH 27.1 27.0 - 32.0 pcg LAB HEMETOLOGY METHOD 09/07/2024 4:56 PM [facility] MCHC 30.2(L) 32.0 - 37.0 g/dL LAB HEMETOLOGY METHOD 09/07/2024 4:56 PM [facility] RDW 13.2 11.0 - 15.0 % LAB HEMETOLOGY METHOD 09/07/2024 4:56 PM [facility] Platelets 296 130 - 400 K/mcL LAB HEMETOLOGY METHOD 09/07/2024 4:56 PM [facility] MPV 9.9 7.0 - 11.0 FL LAB HEMETOLOGY METHOD 09/07/2024 4:56 PM [facility] NRBC 0.0 <1.0 % LAB HEMETOLOGY METHOD 09/07/2024 4:56 PM [facility] NRBC Absolute 0.00 <0.10 K/mcL LAB HEMETOLOGY METHOD 09/07/2024 4:56 PM [facility] Neutrophils Relative 69.9 % LAB HEMETOLOGY METHOD 09/07/2024 4:56 PM [facility] Lymphocytes Relative 18.0 % LAB HEMETOLOGY METHOD 09/07/2024 4:56 PM [facility] Monocytes Relative 7.9 % LAB HEMETOLOGY METHOD 09/07/2024 4:[address] [facility] Eosinophils Relative 3.0 % LAB HEMETOLOGY METHOD 09/07/2024 4:56 PM [facility] Basophils Relative 0.6 % LAB HEMETOLOGY METHOD 09/07/2024 4:56 PM [facility] Immature Granulocytes Relative 0.6 % LAB HEMETOLOGY METHOD 09/07/2024 4:[address] [facility] Neutrophils Absolute 8.65(H) 1.50 - 7.00 K/mcL LAB HEMETOLOGY METHOD 09/07/2024 4:56 PM [facility] Lymphocytes Absolute 2.23 1.00 - 5.00 K/mcL LAB HEMETOLOGY METHOD 09/07/2024 4:56 PM [facility] Monocytes Absolute 0.98 0.20 - 1.00 K/mcL LAB HEMETOLOGY METHOD 09/07/2024 4:[address] [facility] Eosinophils Absolute 0.37 0.00 - 0.50 K/mcL LAB HEMETOLOGY METHOD 09/07/2024 4:56 PM [facility] Basophils Absolute 0.08 0.00 - 0.20 K/mcL LAB HEMETOLOGY METHOD 09/07/2024 4:56 PM [facility] Immature Granulocytes Absolute 0.08(H) 0.00 - 0.03 K/mcL LAB HEMETOLOGY METHOD 09/07/2024 4:56 PM [facility] Blood Venous blood specimen / Unknown 09/07/2024 1:21 PM EST 09/07/2024 3:51 PM EST us Forest Wood MD LAB BLOOD ORDERABLES Final Resul t [facility] [address] [place] [address], documented in this encounter Visit Diagnoses Diagnosis Schizoaffective disorder, unspecified ([facility] V24, [facility] V28) documented in this encounter Care Teams Preassembler Printed Circuit Board Relationship Specialty Start Date End Date Forest Wood MD [address] [place] [address] Dr [address] LOYD Banks PCP - General Internal Medicine 11/07/24 documented as of this encounter
--- OUTSIDE RECORDS SUMMARY | 2025-06-04 10:18 | XMS_ITS | Encounter Summary ---
Author Organization [employer] Address [address] [place] [address] Care Team Providers Care Insurance Verification Specialist Name Role Phone Forest Wood MD Primary Care Provider [phone] Encounter Details Date Type Department Care Team (Late st Contact Info) Description 01/16/2025 Lab Requisition [facility] - Main Lab [address] [facility] [place] [address] Forest Wood MD [address] [place] [address] [address] [place] Chronic kidney disease, stage 4 (severe) (CMS/HCC V24, CMS/HCC V28) Social History Tobacco [...] Procedure Name Priority Date/Time Associated Diagnosis Comments SST - GOLD Routine 01/16/2025 6:39 AM [...] EDT Chronic kidney disease, stage 4 (severe) (CMS/[facility] V24, CMS/[facility] V28) FERRITIN Routine 01/16/2025 6:39 AM EDT Chronic kidney disease, stage 4 (severe) (CMS/HCC V24, CMS/[facility] V28) RENAL FUNCTION PANEL Routine 01/16/2025 6:39 AM EDT Chronic kidney disease, stage 4 (severe) (CMS/[facility] V24, CMS/[facility] V28) documented in this encounter Results * SST tube (01/16/2025 6:39 AM EDT) Pathologist [facility] Extra Tube Hold for add-ons. 01/16/2025 10:01 AM EDT [facility] Comment:Auto resulted. Blood Venous blood specimen / Unknown 01/16/2025 6:39 AM EDT 01/16/2025 8:02 AM EDT us Forest Wood MD LAB BLOOD ORDERABLES Final Resul t Performing Organization Address [facility]/ZIP Co de Phone Number [facility] [address] [place] [address], [place] [phone] * (ABNORMAL) Parathyroid hormone intact (01/16/2025 6:39 AM EDT) Pathologist [facility] PTH 101.9(H) 18.5 - 88.0 pcg/mL LAB CHEMISTRY METHOD 01/16/2025 10:56 AM EDT [facility] Blood Venous blood specimen / Unknown 01/16/2025 6:39 AM EDT 01/16/2025 8:02 AM EDT us Forest Wood MD LAB BLOOD ORDERABLES Final Resul t [facility] [address] [place] [address], [place] [phone] * Vitamin D 25 hydroxy (01/16/2025 6:39 AM EDT) Pathologist [facility] Vit D, 25-Hydroxy 51.5 30.0 - 80.0 ng/mL LAB CHEMISTRY METHOD 01/16/2025 10:55 AM EDT [facility] Blood Venous blood specimen / Unknown 01/16/2025 6:39 AM EDT 01/16/2025 8:02 AM EDT us Forest Wood MD LAB BLOOD ORDERABLES Final Resul t [facility] [address] [place] [address], [place] [phone] * (ABNORMAL) Ferritin (01/16/2025 6:39 AM EDT) [facility] Ferritin 1,249(H) 26 - 388 ng/mL LAB CHEMISTRY METHOD 01/16/2025 8:55 AM EDT [facility] Comment:Results verified by repeat testing Blood Venous blood specimen / Unknown 01/16/2025 6:39 AM EDT 01/16/2025 8:02 AM EDT us Forest Wood MD LAB BLOOD ORDERABLES Final Resul t [facility] [address] [place] [address], [place] [phone] * (ABNORMAL) Complete blood count (01/16/2025 6:39 AM EDT) [facility] WBC 13.9(H) 4.8 - 10.8 K/[facility] LAB HEMETOLOGY METHOD 01/16/2025 8:09 AM EDT [facility] RBC 4.40(L) 4.50 - 5.50 M/[facility] LAB HEMETOLOGY METHOD 01/16/2025 8:09 AM [facility] Hemoglobin 12.0(L) 13.5 - 17.5 g/dL LAB HEMETOLOGY METHOD 01/16/2025 8:09 AM [facility] Hematocrit 39.7(L) 42.0 - 54.0 % LAB HEMETOLOGY METHOD 01/16/2025 8:09 AM [facility] MCV 89.8 79.0 - 98.0 FL LAB HEMETOLOGY METHOD 01/16/2025 8:09 AM [facility] MCH 27.1 27.0 - 32.0 pcg LAB HEMETOLOGY METHOD 01/16/2025 8:09 AM [facility] MCHC 30.2(L) 32.0 - 37.0 g/dL LAB HEMETOLOGY METHOD 01/16/2025 8:09 AM [facility] RDW 13.6 11.0 - 15.0 % LAB HEMETOLOGY METHOD 01/16/2025 8:09 AM [facility] Platelets 244 130 - 400 K/mcL LAB HEMETOLOGY METHOD 01/16/2025 8:09 AM [facility] MPV 10.1 7.0 - 11.0 FL LAB HEMETOLOGY METHOD 01/16/2025 8:09 AM [facility] NRBC 0.0 <1.0 % LAB HEMETOLOGY METHOD 01/16/2025 8:09 AM [facility] NRBC Absolute 0.00 <0.10 K/mcL LAB HEMETOLOGY METHOD 01/16/2025 8:09 AM [facility] Blood Venous blood specimen / Unknown 01/16/2025 6:39 AM EDT 01/16/2025 8:02 AM EDT Forest Wood MD LAB BLOOD ORDERABLES Final Resul t Performing Organization Address City/State/[facility] de Phone Number [facility] [address] [place] [address], [place] [phone] * Iron and TIBC (01/16/2025 6:39 AM EDT) Iron 77 50 - 160 mcg/dL LAB CHEMISTRY METHOD 01/16/2025 8:32 AM EDT [facility] TIBC 326 250 - 450 mcg/dL LAB CHEMISTRY METHOD 01/16/2025 8:32 AM EDT [facility] Iron Saturation 24 20 - 50 % LAB CHEMISTRY METHOD 01/16/2025 8:32 AM EDT [facility] Blood Venous blood specimen / Unknown 01/16/2025 6:39 AM EDT 01/16/2025 8:02 AM EDT Forest Wood MD LAB BLOOD ORDERABLES Final Resul t Performing Organization Address [facility] Co de Phone Number [facility] [address] [place] [address], [place] [phone] * (ABNORMAL) Renal function panel (01/16/2025 6:39 AM EDT) Sodium 139 133 - 145 mmol/L LAB CHEMISTRY METHOD 01/16/2025 8:32 AM EDT [facility] Potassium 4.8 3.5 - 5.5 mmol/L LAB CHEMISTRY METHOD 01/16/2025 8:32 AM EDT [facility] Chloride 106 96 - 110 mmol/L LAB CHEMISTRY METHOD 01/16/2025 8:32 AM EDT [facility] CO2 28 21 - 32 mmol/L LAB CHEMISTRY METHOD 01/16/2025 8:32 AM EDT [facility] Anion Gap 5 3 - 11 LAB CHEMISTRY METHOD 01/16/2025 8:32 AM EDT [facility] Glucose 84 70 - 100 mg/dL LAB CHEMISTRY METHOD 01/16/2025 8:32 AM [facility] BUN 41(H) 5 - 25 mg/dL LAB CHEMISTRY METHOD 01/16/2025 8:32 AM [facility] Creatinine 2.79(H) 0.70 - 1.30 mg/dL LAB CHEMISTRY METHOD 01/16/2025 8:32 AM [facility] eGFR 24(L) >=60 mL/min/1. 73m2 LAB CHEMISTRY METHOD 01/16/2025 8:32 AM [facility] Comment:Calculation based on the Chronic Kidney Disease Epidemiology Collaboration (CKD-EPI) equation refit without adjustment for race. BUN/Creatinine Ratio 14.7 LAB CHEMISTRY METHOD 01/16/2025 8:32 AM [facility] Albumin 3.2 3.2 - 5.0 g/dL LAB CHEMISTRY METHOD 01/16/2025 8:32 AM [facility] Calcium 9.5 8.5 - 10.5 mg/dL LAB CHEMISTRY METHOD 01/16/2025 8:32 AM [facility] Phosphorus 4.0 2.5 - 4.5 mg/dL LAB CHEMISTRY METHOD 01/16/2025 8:32 AM [facility] Blood Venous blood specimen / Unknown 01/16/2025 6:39 AM EDT 01/16/2025 8:02 AM EDT us Forest Wood MD LAB BLOOD ORDERABLES Final Resul t [facility] [address] [place] [address], documented in this encounter Visit Diagnoses Diagnosis Chronic kidney disease, stage 4 (severe) (CMS/HCC V24, CMS/HCC V28) documented in this encounter Care Teams Insurance Verification Specialist Relationship Specialty Start Date End Date Forest Wood MD [address] [place] [address] Dr Kojo TayloryoLOYD bynum PCP - General Internal Medicine 11/07/24 documented as of this encounter
--- OUTSIDE RECORDS SUMMARY | 2025-06-04 10:18 | XMS_ITS | Encounter Summary ---
Author Organization [employer] Address [address] [place] [address] Care Team Providers Care Bi Developer Name Role Phone Forest Wood MD Primary Care Provider [phone] Encounter Details Date Type Department Care Team (Latest Contact Info) Description 09/08/2024 Lab Requisition [facility] - Main Lab [address] [facility] [place] [address] Forest Wood MD [address] [place] [address] [address] [place] Banks Schizoaffective disorder, unspecified (CMS/HCC V24, CMS/HCC V28) [...] * SST tube (09/08/2024 9:14 AM EST) Pathologist [facility] Extra Tube Hold for add-ons. 09/08/2024 12:01 PM EST [facility] Comment:Auto resulted. Blood Venous blood specimen / Unknown 09/08/2024 9:14 AM EST 09/08/2024 10:17 AM EST us Forest Wood MD LAB BLOOD ORDERABLES Final Resul t [facility] [address] [place] [address], * (ABNORMAL) CBC auto differential (09/08/2024 9:14 AM EST) WBC 14.2(H) 4.8 - 10.8 K/[facility] HEMETOLOGY METHOD 09/08/2024 10:30 AM [facility] RBC 4.90 4.50 - 5.50 M/[facility] HEMETOLOGY METHOD 09/08/2024 10:30 AM [facility] Hemoglobin 13.2(L) 13.5 - 17.5 g/dL LAB HEMETOLOGY METHOD 09/08/2024 10:30 AM [facility] Hematocrit 43.5 42.0 - 54.0 % LAB HEMETOLOGY METHOD 09/08/2024 10:30 AM [facility] MCV 88.8 79.0 - 98.0 FL LAB HEMETOLOGY METHOD 09/08/2024 10:30 AM [facility] MCH 26.9(L) 27.0 - 32.0 pcg LAB HEMETOLOGY METHOD 09/08/2024 10:30 AM [facility] MCHC 30.3(L) 32.0 - 37.0 g/dL LAB HEMETOLOGY METHOD 09/08/2024 10:30 AM [facility] RDW 13.0 11.0 - 15.0 % LAB HEMETOLOGY METHOD 09/08/2024 10:30 AM [facility] Platelets 321 130 - 400 K/mcL LAB HEMETOLOGY METHOD 09/08/2024 10:30 AM [facility] MPV 9.5 7.0 - 11.0 FL LAB HEMETOLOGY METHOD 09/08/2024 10:30 AM [facility] NRBC 0.0 <1.0 % LAB HEMETOLOGY METHOD 09/08/2024 10:30 AM [facility] NRBC Absolute 0.00 <0.10 K/mcL LAB HEMETOLOGY METHOD 09/08/2024 10:30 AM [facility] Neutrophils Relative 72.2 % LAB HEMETOLOGY METHOD 09/08/2024 10:30 AM [facility] Lymphocytes Relative 16.2 % LAB HEMETOLOGY METHOD 09/08/2024 10:30 AM [facility] Monocytes Relative 7.6 % LAB HEMETOLOGY METHOD 09/08/2024 10:30 AM EST [facility] Eosinophils Relative 2.7 % LAB HEMETOLOGY METHOD 09/08/2024 10:30 AM [facility] Basophils Relative 0.8 % LAB HEMETOLOGY METHOD 09/08/2024 10:30 AM [facility] Immature Granulocytes Relative 0.5 % LAB HEMETOLOGY METHOD 09/08/2024 10:30 AM EST [facility] Neutrophils Absolute 10.28(H) 1.50 - 7.00 K/mcL LAB HEMETOLOGY METHOD 09/08/2024 10:30 AM EST [facility] Lymphocytes Absolute 2.30 1.00 - 5.00 K/mcL LAB HEMETOLOGY METHOD 09/08/2024 10:30 AM [facility] Monocytes Absolute 1.08(H) 0.20 - 1.00 K/mcL LAB HEMETOLOGY METHOD 09/08/2024 10:30 AM EST [facility] Eosinophils Absolute 0.39 0.00 - 0.50 K/mcL LAB HEMETOLOGY METHOD 09/08/2024 10:30 AM EST [facility] Basophils Absolute 0.11 0.00 - 0.20 K/mcL LAB HEMETOLOGY METHOD 09/08/2024 10:30 AM [facility] Immature Granulocytes Absolute 0.07(H) 0.00 - 0.03 K/mcL LAB HEMETOLOGY METHOD 09/08/2024 10:30 AM EST [facility] Blood Venous blood specimen / Unknown 09/08/2024 9:14 AM EST 09/08/2024 10:17 AM EST us Forest Wood MD LAB BLOOD ORDERABLES Final Resul t [facility] [address] [place] [address], * Vitamin D 25 hydroxy (09/08/2024 9:14 AM EST) Vit D, 25-Hydroxy 55.0 30.0 - 80.0 ng/mL LAB CHEMISTRY METHOD 09/08/2024 11:26 AM EST [facility] Blood Venous blood specimen / Unknown 09/08/2024 9:14 AM EST 09/08/2024 10:17 AM EST us Forest Wood MD LAB BLOOD ORDERABLES Final Resul t Performing Organization Address [facility] de Phone Number [facility] [address] [place] [address], * Prostate specific antigen screen (09/08/2024 9:14 AM EST) PSA 1.45 0.00 - 4.00 ng/mL LAB CHEMISTRY METHOD 09/08/2024 11:26 AM EST [facility] Blood Venous blood specimen / Unknown 09/08/2024 9:14 AM EST 09/08/2024 10:17 AM EST Narrative [facility] - 09/08/2024 11:26 AM EST The Siemens Advia Centaur Chemiluminescent Immunoassay is used. Results obtained with different assay methods or kits cannot be used interchangeably. Results cannot be interpreted as absolute evidence of the presence or absence of malignant disease. us Forest Wood MD LAB BLOOD ORDERABLES Final Resul t Performing Organization Address City/[facility]/ZIP Co de Phone Number [facility] [address] [place] [address], [place] [phone] * Phosphorus (09/08/2024 9:14 AM EST) Phosphorus 2.7 2.5 - 4.5 mg/dL LAB CHEMISTRY METHOD 09/08/2024 1:56 PM EST [facility] Blood Venous blood specimen / Unknown 09/08/2024 9:14 AM EST 09/08/2024 10:17 AM EST us Forest Wood MD LAB BLOOD ORDERABLES Final Resul t Performing Organization Address [facility] Co de Phone Number [facility] [address] [place] [address], [place] [phone] * (ABNORMAL) Parathyroid hormone intact (09/08/2024 9:14 AM EST) PTH 104.7(H) 18.5 - 88.0 pcg/mL LAB CHEMISTRY METHOD 09/08/2024 11:27 AM EST [facility] Blood Venous blood specimen / Unknown 09/08/2024 9:14 AM EST 09/08/2024 10:17 AM EST us Forest Wood MD LAB BLOOD ORDERABLES Final Resul t Performing Organization Address [facility] de Phone Number [facility] [address] [place] [address], [place] [phone] * Thyroid stimulating hormone (09/08/2024 9:14 AM EST) [facility] TSH 2.07 0.40 - 4.00 mcIU/mL LAB CHEMISTRY METHOD 09/08/2024 11:27 AM EST [facility] Blood Venous blood specimen / Unknown 09/08/2024 9:14 AM EST 09/08/2024 10:17 AM EST us Forest Wood MD LAB BLOOD ORDERABLES Final Resul t Performing Organization Address [facility] Co de Phone Number [facility] [address] [place] [address], [place] [phone] * (ABNORMAL) Lipid panel with reflex to direct LDL (09/08/2024 9:14 AM EST) Pathologist [facility] Cholesterol 150 0 - 200 mg/dL LAB CHEMISTRY METHOD 09/08/2024 1:55 PM [facility] Triglycerides 257(H) 0 - 150 mg/dL LAB CHEMISTRY METHOD 09/08/2024 1:55 PM [facility] HDL 41 >=40 mg/dL LAB CHEMISTRY METHOD 09/08/2024 1:55 PM [facility] LDL Calculated 58 0 - 100 mg/dL LAB CHEMISTRY METHOD 09/08/2024 1:55 PM [facility] VLDL Cholesterol Yonathan 51.4 mg/dL LAB CHEMISTRY METHOD 09/08/2024 1:55 PM [facility] Non HDL Chol. (LDL+VLDL) 109 <145 mg/dL LAB CHEMISTRY METHOD 09/08/2024 1:55 PM [facility] Chol/HDL Ratio 3.7 0.0 - 4.4 LAB CHEMISTRY METHOD 09/08/2024 1:55 PM [facility] Blood Venous blood specimen / Unknown 09/08/2024 9:14 AM EST 09/08/2024 10:17 AM EST us Forest Wood MD LAB BLOOD ORDERABLES Final Resul t [facility] [address] [place] [address], [place] [phone] * (ABNORMAL) Comprehensive metabolic panel (09/08/2024 9:14 AM EST) Sodium 141 133 - 145 mmol/L LAB CHEMISTRY METHOD 09/08/2024 1:55 PM [facility] Potassium 4.1 3.5 - 5.5 mmol/L LAB CHEMISTRY METHOD 09/08/2024 1:55 PM [facility] Chloride 109 96 - 110 mmol/L LAB CHEMISTRY METHOD 09/08/2024 1:55 PM [facility] CO2 25 21 - 32 mmol/L LAB CHEMISTRY METHOD 09/08/2024 1:55 PM [facility] Anion Gap 7 3 - 11 LAB CHEMISTRY METHOD 09/08/2024 1:55 PM [facility] Glucose 107(H) 70 - 100 mg/dL LAB CHEMISTRY METHOD 09/08/2024 1:55 PM [facility] BUN 39(H) 5 - 25 mg/dL LAB CHEMISTRY METHOD 09/08/2024 1:55 PM [facility] Creatinine 2.65(H) 0.70 - 1.30 mg/dL LAB CHEMISTRY METHOD 09/08/2024 1:55 PM [facility] eGFR 26(L) >=60 mL/min/1. 73m2 LAB CHEMISTRY METHOD 09/08/2024 1:55 PM [facility] Comment:Calculation based on the Chronic Kidney Disease Epidemiology Collaboration (CKD-EPI) equation refit without adjustment for race. BUN/Creatinine Ratio 14.7 LAB CHEMISTRY METHOD 09/08/2024 1:55 PM [facility] Calcium 10.0 8.5 - 10.5 mg/dL LAB CHEMISTRY METHOD 09/08/2024 1:55 PM [facility] AST (SGOT) 41 10 - 42 unit/L LAB CHEMISTRY METHOD 09/08/2024 1:55 PM [facility] ALT (SGPT) 45 10 - 60 unit/L LAB CHEMISTRY METHOD 09/08/2024 1:55 PM [facility] Alkaline Phosphatase 81 42 - 121 unit/L LAB CHEMISTRY METHOD 09/08/2024 1:55 PM [facility] Total Protein 7.8 6.0 - 8.0 g/dL LAB CHEMISTRY METHOD 09/08/2024 1:55 PM [facility] Albumin 3.7 3.2 - 5.0 g/dL LAB CHEMISTRY METHOD 09/08/2024 1:55 PM [facility] Total Bilirubin 0.5 0.0 - 1.4 mg/dL LAB CHEMISTRY METHOD 09/08/2024 1:55 PM EST [facility] Blood Venous blood specimen / Unknown 09/08/2024 9:14 AM EST 09/08/2024 10:17 AM EST Forest Wood MD LAB BLOOD ORDERABLES Final Resul t [facility] [address] [place] [address], documented in this encounter Visit Diagnoses Diagnosis Schizoaffective disorder, unspecified (CMS/HCC V24, CMS/HCC V28) documented in this encounter Care Teams Bi Developer Relationship Specialty Start Date End Date Forest Wood MD [address] [place] [address] Dr [address] [place], [place] PCP - General Internal Medicine 11/07/24 documented as of this encounter
--- OUTSIDE RECORDS SUMMARY | 2025-06-04 10:18 | XMS_ITS | Encounter Summary ---
Author Organization [facility] Address [address] [place] [address] Care Team Providers Care Block Trader Name Role Phone Forest Wood MD Primary Care Provider [phone] Encounter Details Date Type Department Care Team (Latest Contact Info) Description 07/26/[address] [facility] - Main Lab [address] [facility] [place] [address] Forest Wood MD [address] [place] [address] Dr [address] [place] Banks Schizoaffective disorder, [...] CBC auto differential (07/26/2024 5:30 AM EST) [facility] WBC 15.1(H) 4.8 - 10.8 K/mcL LAB HEMETOLOGY METHOD 07/26/2024 6:57 AM [facility] LAB RBC 4.30(L) 4.50 - 5.50 M/mcL LAB HEMETOLOGY METHOD 07/26/2024 6:57 AM [facility] LAB Hemoglobin 11.6(L) 13.5 - 17.5 g/dL LAB HEMETOLOGY METHOD 07/26/2024 6:57 AM [facility] LAB Hematocrit 38.5(L) 42.0 - 54.0 % LAB HEMETOLOGY METHOD 07/26/2024 6:57 AM [facility] LAB MCV 90.4 79.0 - 98.0 FL LAB HEMETOLOGY METHOD 07/26/2024 6:57 AM [facility] LAB MCH 27.2 27.0 - 32.0 pcg LAB HEMETOLOGY METHOD 07/26/2024 6:57 AM [facility] LAB MCHC 30.1(L) 32.0 - 37.0 g/dL LAB HEMETOLOGY METHOD 07/26/2024 6:57 AM [facility] LAB RDW 13.6 11.0 - 15.0 % LAB HEMETOLOGY METHOD 07/26/2024 6:57 AM [facility] LAB Platelets 238 130 - 400 K/mcL LAB HEMETOLOGY METHOD 07/26/2024 6:57 AM [facility] LAB MPV 10.1 7.0 - 11.0 FL LAB HEMETOLOGY METHOD 07/26/2024 6:57 AM [facility] LAB NRBC 0.0 <1.0 % LAB HEMETOLOGY METHOD 07/26/2024 6:57 AM [facility] LAB NRBC Absolute 0.00 <0.10 K/mcL LAB HEMETOLOGY METHOD 07/26/2024 6:57 AM [facility] LAB Neutrophils Relative 63.8 % LAB HEMETOLOGY METHOD 07/26/2024 6:57 AM [facility] LAB Lymphocytes Relative 22.1 % LAB HEMETOLOGY METHOD 07/26/2024 6:57 AM [facility] Monocytes Relative 8.2 % LAB HEMETOLOGY METHOD 07/26/2024 6:57 AM [facility] Eosinophils Relative 4.1 % LAB HEMETOLOGY METHOD 07/26/2024 6:57 AM [facility] Basophils Relative 0.9 % LAB HEMETOLOGY METHOD 07/26/2024 6:57 AM [facility] Immature Granulocytes Relative 0.9 % LAB HEMETOLOGY METHOD 07/26/2024 6:57 AM [facility] Neutrophils Absolute 9.63(H) 1.50 - 7.00 K/mcL LAB HEMETOLOGY METHOD 07/26/2024 6:57 AM [facility] LAB Lymphocytes Absolute 3.33 1.00 - 5.00 K/mcL LAB HEMETOLOGY METHOD 07/26/2024 6:57 AM [facility] Monocytes Absolute 1.23(H) 0.20 - 1.00 K/mcL LAB HEMETOLOGY METHOD 07/26/2024 6:57 AM [facility] Eosinophils Absolute 0.62(H) 0.00 - 0.50 K/mcL LAB HEMETOLOGY METHOD 07/26/2024 6:57 AM [facility] Basophils Absolute 0.13 0.00 - 0.20 K/mcL LAB HEMETOLOGY METHOD 07/26/2024 6:57 AM EST [facility] Immature Granulocytes Absolute 0.13(H) 0.00 - 0.03 K/mcL LAB HEMETOLOGY METHOD 07/26/2024 6:57 AM EST [facility] Blood Venous blood specimen / Unknown 07/26/2024 5:30 AM EST 07/26/2024 6:40 AM EST us Forest Wood MD LAB BLOOD ORDERABLES Final Resul t Performing Organization Address City/[facility]/ZIP Co de Phone Number [facility] [address] [place] [address], [place] [phone] * Phosphorus (07/26/2024 5:30 AM EST) Phosphorus 4.5 2.5 - 4.5 mg/dL LAB CHEMISTRY METHOD 07/26/2024 7:36 AM EST [facility] Blood Venous blood specimen / Unknown 07/26/2024 5:30 AM EST 07/26/2024 6:40 AM EST us Forest Wood MD LAB BLOOD ORDERABLES Final Resul t Performing Organization Address [facility] Co de Phone Number [facility] [address] [place] [address], [place] [phone] * Parathyroid hormone intact (07/26/2024 5:30 AM EST) PTH 78.5 18.5 - 88.0 pcg/mL LAB CHEMISTRY METHOD 07/26/2024 9:37 AM EST [facility] Blood Venous blood specimen / Unknown 07/26/2024 5:30 AM EST 07/26/2024 6:40 AM EST us Forest Wood MD LAB BLOOD ORDERABLES Final Resul t Performing Organization Address City/[facility]/ZIP Co de Phone Number [facility] [address] [place] [address], [place] [phone] * (ABNORMAL) Lipid panel with reflex to direct LDL (07/26/2024 5:30 AM EST) Cholesterol 157 0 - 200 mg/dL LAB CHEMISTRY METHOD 07/26/2024 7:36 AM [facility] Triglycerides 174(H) 0 - 150 mg/dL LAB CHEMISTRY METHOD 07/26/2024 7:36 AM [facility] HDL 49 >=40 mg/dL LAB CHEMISTRY METHOD 07/26/2024 7:36 AM [facility] LDL Calculated 73 0 - 100 mg/dL LAB CHEMISTRY METHOD 07/26/2024 7:36 AM [facility] VLDL Cholesterol Yonathan 34.8 mg/dL LAB CHEMISTRY METHOD 07/26/2024 7:36 AM [facility] Non HDL Chol. (LDL+VLDL) 108 <145 mg/dL LAB CHEMISTRY METHOD 07/26/2024 7:36 AM [facility] Chol/HDL Ratio 3.2 0.0 - 4.4 LAB CHEMISTRY METHOD 07/26/2024 7:36 AM [facility] Blood Venous blood specimen / Unknown 07/26/2024 5:30 AM EST 07/26/2024 6:40 AM EST Forest Wood MD LAB BLOOD ORDERABLES Final Resul t [facility] [address] [place] [address], [place] [phone] * (ABNORMAL) Comprehensive metabolic panel (07/26/2024 5:30 AM EST) Pathologist [facility] Sodium 141 133 - 145 mmol/L LAB CHEMISTRY METHOD 07/26/2024 8:40 AM [facility] Potassium 4.7 3.5 - 5.5 mmol/L LAB CHEMISTRY METHOD 07/26/2024 8:40 AM [facility] Chloride 108 96 - 110 mmol/L LAB CHEMISTRY METHOD 07/26/2024 8:40 AM [facility] CO2 26 21 - 32 mmol/L LAB CHEMISTRY METHOD 07/26/2024 8:40 AM [facility] Anion Gap 7 3 - 11 LAB CHEMISTRY METHOD 07/26/2024 8:40 AM [facility] Glucose 75 70 - 100 mg/dL LAB CHEMISTRY METHOD 07/26/2024 8:40 AM [facility] BUN 50(H) 5 - 25 mg/dL LAB CHEMISTRY METHOD 07/26/2024 8:40 AM [facility] Creatinine 2.85(H) 0.70 - 1.30 mg/dL LAB CHEMISTRY METHOD 07/26/2024 8:40 AM [facility] eGFR 23(L) >=60 mL/min/1. 73m2 LAB CHEMISTRY METHOD 07/26/2024 8:40 AM [facility] Comment:Calculation based on the Chronic Kidney Disease Epidemiology Collaboration (CKD-EPI) equation refit without adjustment for race. BUN/Creatinine Ratio 17.5 LAB CHEMISTRY METHOD 07/26/2024 8:40 AM [facility] Calcium 10.0 8.5 - 10.5 mg/dL LAB CHEMISTRY METHOD 07/26/2024 8:40 AM [facility] AST (SGOT) 16 10 - 42 unit/L LAB CHEMISTRY METHOD 07/26/2024 8:40 AM [facility] ALT (SGPT) 29 10 - 60 unit/L LAB CHEMISTRY METHOD 07/26/2024 8:40 AM [facility] Alkaline Phosphatase 70 42 - 121 unit/L LAB CHEMISTRY METHOD 07/26/2024 8:40 AM [facility] Total Protein 6.9 6.0 - 8.0 g/dL LAB CHEMISTRY METHOD 07/26/2024 8:40 AM [facility] Albumin 3.3 3.2 - 5.0 g/dL LAB CHEMISTRY METHOD 07/26/2024 8:40 AM EST [facility] Total Bilirubin 0.3 0.0 - 1.4 mg/dL LAB CHEMISTRY METHOD 07/26/2024 8:40 AM EST [facility] Blood Venous blood specimen / Unknown 07/26/2024 5:30 AM EST 07/26/2024 6:40 AM EST us Forest Wood MD LAB BLOOD ORDERABLES Final Resul t [facility] [address] [place] [address], documented in this encounter Visit Diagnoses Diagnosis Schizoaffective disorder, unspecified (CMS/HCC V24, CMS/HCC V28) documented in this encounter Care Teams Block Trader Relationship Specialty Start Date End Date Forest Wood MD [address] [place] [address] Dr [address] [place], [place] PCP - General Internal Medicine 11/07/24 documented as of this encounter
--- OUTSIDE RECORDS SUMMARY | 2025-06-04 10:18 | XMS_ITS | Encounter Summary ---
Author Organization [facility] Address [address] [place] [address] Care Team Providers Care Neuro Psych Sales Specialist Name Role Phone Forest Wood MD Primary Care Provider [phone] Encounter Details Date Type Department Care Team (Latest Contact Info) Description 05/25/2025 Lab Requisition [facility] - Main Lab [address] [place] [address] Forest Wood MD [address] [place] [address] [address] [place] Schizoaffective disorder, unspecified ([facility] V24, [facility] V28) Social History Tobacco Use Types Packs/Day [...] AM EDT Schizoaffective disorder, unspecified (CMS/HCC V24, CMS/[facility] V28) documented in this encounter Results * Vitamin D 25 hydroxy (05/25/2025 7:04 AM EDT) Vit D, 25-Hydroxy 49.8 30.0 - 80.0 ng/mL LAB CHEMISTRY METHOD 05/25/2025 8:57 AM EDT [facility] ([facility]) [facility] Blood Venous blood specimen / Unknown 05/25/2025 7:04 AM EDT 05/25/2025 8:00 AM EDT us Forest Wood MD LAB BLOOD ORDERABLES Final Resul t [facility] [place] ([facility] H[facility] LAB [address] [place] [address], documented in this encounter Visit Diagnoses Diagnosis Schizoaffective disorder, unspecified (CMS/HCC V24, CMS/HCC V28) documented in this encounter Care Teams Neuro Psych Sales Specialist Relationship Specialty Start Date End Date Forest Wood MD [address] [place], [place] PCP - General Internal Medicine 11/07/24 documented as of this encounter
--- OUTSIDE RECORDS SUMMARY | 2025-06-04 10:18 | XMS_ITS | Encounter Summary ---
Author Organization [facility] Address [address] [place] [address] Care Team Providers Care Strapping Machine Tender Name Role Phone Forest Wood MD Primary Care Provider [phone] Encounter Details Date Type Department Care Team (Late st Contact Info) Description 05/16/2025 Lab Requisition [facility] Lab [address] [facility] [place] [address] Forest Wood MD [address] [place] [address] [address] [place] Social History Tobacco Use Types Packs/Day Years [...] Procedure Name Priority Date/Time Associated Diagnosis Comments URINALYSIS WITH REFLEX MICROSCOPIC Routine 05/16/2025 12:00 AM EDT URINALYSIS WITH REFLEX MICROSCOPIC Routine 05/16/2025 12:00 AM EDT documented in this encounter Results * (ABNORMAL) Urinalysis with reflex microscopic (05/16/2025 12:00 AM EDT) Specific [place] Urine 1.012 1.003 - 1.030 LAB URINALYSIS - AUTOMATED METHOD 05/16/2025 7:44 PM EDT [facility] pH, Urine 6.0 5.0 - 8.0 pH LAB URINALYSIS - AUTOMATED METHOD 05/16/2025 7:44 PM EDT [facility] Leukocytes, Urine Negative Negative LAB URINALYSIS - AUTOMATED METHOD 05/16/2025 7:44 PM EDT [facility] Nitrite, Urine Negative Negative LAB URINALYSIS - AUTOMATED METHOD 05/16/2025 7:[address] [facility] Protein, Urine 100(A) <=Trace mg/dL LAB URINALYSIS - AUTOMATED METHOD 05/16/2025 7:[address] [facility] Glucose, Urine Negative Negative mg/dL LAB URINALYSIS - AUTOMATED METHOD 05/16/2025 7:[address] [facility] Ketones, Urine Negative Negative mg/dL LAB URINALYSIS - AUTOMATED METHOD 05/16/2025 7:[address] [facility] Urobilinogen, Urine 1.0 0.2 - 1.0 mg/dL LAB URINALYSIS - AUTOMATED METHOD 05/16/2025 7:[address] [facility] Bilirubin, Urine Negative Negative LAB URINALYSIS - AUTOMATED METHOD 05/16/2025 7:[address] [facility] Blood, Urine Negative Negative LAB URINALYSIS - AUTOMATED METHOD 05/16/2025 7:[address] [facility] RBC, Urine 0.5 0 - 4 /HPF LAB URINALYSIS - AUTOMATED METHOD 05/16/2025 7:[address] [facility] WBC, Urine 0.2 0 - 4 /HPF LAB URINALYSIS - AUTOMATED METHOD 05/16/2025 7:[address] [facility] Squamous Epithelial, Urine 5 0 - 60 /LPF LAB URINALYSIS - AUTOMATED METHOD 05/16/2025 7:[address] [facility] Bacteria, Urine Negative Negative /HPF LAB URINALYSIS - AUTOMATED METHOD 05/16/2025 7:[address] [facility] Hyaline Casts, Urine 0.0 0 - 3 /LPF LAB URINALYSIS - AUTOMATED METHOD 05/16/2025 7:[address] [facility] Urine Urine specimen obtained by clean catch procedure / Unknown 05/16/2025 05/16/2025 6:55 PM EDT us Forest Wood MD LAB URINE ORDERABLES Final Resul t [facility] ([facility]) [facility] [address] [place] [address], [place] [phone] documented in this encounter Visit Diagnoses Not on filedocumented in this encounter Care Teams Strapping Machine Tender Relationship Specialty Start Date End Date Forest Wood MD [address] [place] [address] Dr [address] [place] PCP - General Internal Medicine 11/07/24 documented as of this encounter
--- OUTSIDE RECORDS SUMMARY | 2025-06-04 10:18 | XMS_ITS | Encounter Summary ---
Author Organization [facility] Address [address] [place] [address] Care Team Providers Care Head Scorer Name Role Phone Forest Wood MD Primary Care Provider [phone] Encounter Details Date Type Department Care Team (Latest Contact Info) Description 02/02/2025 Lab Requisition [facility] Lab [address] [place] [address] Forest Wood MD [address] [place] [address] [address] [place], [place] Schizoaffective disorder, unspecified (CMS/HCC V24, CMS/HCC V28) [...] V24, CMS/HCC V28) documented in this encounter Results * (ABNORMAL) Complete blood count (02/02/2025 6:35 AM EDT) WBC 14.8(H) 4.8 - 10.8 K/[facility] LAB HEMETOLOGY METHOD 02/02/2025 8:28 AM EDT [facility] ([facility]) [facility] RBC 4.50 4.50 - 5.50 M/[facility] LAB HEMETOLOGY METHOD 02/02/2025 8:28 AM [facility] Hemoglobin 12.0(L) 13.5 - 17.5 g/dL LAB HEMETOLOGY METHOD 02/02/2025 8:28 AM [facility] LAB Hematocrit 39.9(L) 42.0 - 54.0 % LAB HEMETOLOGY METHOD 02/02/2025 8:28 AM [facility] LAB MCV 89.5 79.0 - 98.0 FL LAB HEMETOLOGY METHOD 02/02/2025 8:28 AM [facility] LAB MCH 26.9(L) 27.0 - 32.0 pcg LAB HEMETOLOGY METHOD 02/02/2025 8:28 AM [facility] LAB MCHC 30.1(L) 32.0 - 37.0 g/dL LAB HEMETOLOGY METHOD 02/02/2025 8:28 AM [facility] LAB RDW 13.7 11.0 - 15.0 % LAB HEMETOLOGY METHOD 02/02/2025 8:28 AM [facility] LAB Platelets 278 130 - 400 K/mcL LAB HEMETOLOGY METHOD 02/02/2025 8:28 AM [facility] LAB MPV 10.1 7.0 - 11.0 FL LAB HEMETOLOGY METHOD 02/02/2025 8:28 AM [facility] LAB NRBC 0.0 <1.0 % LAB HEMETOLOGY METHOD 02/02/2025 8:28 AM [facility] LAB NRBC Absolute 0.00 <0.10 K/mcL LAB HEMETOLOGY METHOD 02/02/2025 8:28 AM [facility] LAB Blood Venous blood specimen / Unknown 02/02/2025 6:35 AM EDT 02/02/2025 8:11 AM EDT Forest Wood MD LAB BLOOD ORDERABLES Final Resul t [facility] [address] [place] [address], * (ABNORMAL) Comprehensive metabolic panel (02/02/2025 6:35 AM EDT) Sodium 143 133 - 145 mmol/L LAB CHEMISTRY METHOD 02/02/2025 9:04 AM [facility] LAB Potassium 4.7 3.5 - 5.5 mmol/L LAB CHEMISTRY METHOD 02/02/2025 9:04 AM [facility] Chloride 109 96 - 110 mmol/L LAB CHEMISTRY METHOD 02/02/2025 9:04 AM [facility] LAB CO2 26 21 - 32 mmol/L LAB CHEMISTRY METHOD 02/02/2025 9:04 AM [facility] LAB Anion Gap 8 3 - 11 LAB CHEMISTRY METHOD 02/02/2025 9:04 AM [facility] LAB Glucose 76 70 - 100 mg/dL LAB CHEMISTRY METHOD 02/02/2025 9:04 AM [facility] BUN 41(H) 5 - 25 mg/dL LAB CHEMISTRY METHOD 02/02/2025 9:04 AM [facility] LAB Creatinine 2.51(H) 0.70 - 1.30 mg/dL LAB CHEMISTRY METHOD 02/02/2025 9:04 AM [facility] LAB eGFR 27(L) >=60 mL/min/1. 73m2 LAB CHEMISTRY METHOD 02/02/2025 9:04 AM [facility] LAB Comment:Calculation based on the Chronic Kidney Disease Epidemiology Collaboration (CKD-EPI) equation refit without adjustment for race. BUN/Creatinine Ratio 16.3 LAB CHEMISTRY METHOD 02/02/2025 9:04 AM [facility] LAB Calcium 9.2 8.5 - 10.5 mg/dL LAB CHEMISTRY METHOD 02/02/2025 9:04 AM EDT [facility] AST (SGOT) 29 10 - 42 unit/L LAB CHEMISTRY METHOD 02/02/2025 9:04 AM T [facility] ALT (SGPT) 39 10 - 60 unit/L LAB CHEMISTRY METHOD 02/02/2025 9:04 AM T [facility] Alkaline Phosphatase 98 42 - 121 unit/L LAB CHEMISTRY METHOD 02/02/2025 9:04 AM T [facility] Total Protein 7.0 6.0 - 8.0 g/dL LAB CHEMISTRY METHOD 02/02/2025 9:04 AM [facility] LAB Albumin 3.2 3.2 - 5.0 g/dL LAB CHEMISTRY METHOD 02/02/2025 9:04 AM [facility] LAB Total Bilirubin 0.3 0.0 - 1.4 mg/dL LAB CHEMISTRY METHOD 02/02/2025 9:04 AM T [facility] Blood Venous blood specimen / Unknown 02/02/2025 6:35 AM EDT 02/02/2025 8:11 AM EDT us Forest Wood MD LAB BLOOD ORDERABLES Final Resul t [facility] [address] [place] [address], documented in this encounter Visit Diagnoses Diagnosis Schizoaffective disorder, unspecified (CMS/HCC V24, CMS/HCC V28) documented in this encounter Care Teams Head Scorer Relationship Specialty Start Date End Date Forest Wood MD [address] [facility] [place] PCP - General Internal Medicine 11/07/24 documented as of this encounter
--- OUTSIDE RECORDS SUMMARY | 2025-06-04 10:18 | XMS_ITS | Encounter Summary ---
Author Organization [facility] Address [address] [place] [address] Care Team Providers Care Embedded Software Test Engineer Name Role Phone Forest Wood MD Primary Care Provider [phone] Encounter Details Date Type Department Care Team (Latest Contact Info) Description 01/03/2025 Lab Requisition [facility] Lab [address] [facility] [place] [address] Forest Wood MD [address] [place] [address] [address] [place] Schizoaffective disorder, unspecified (CMS/HCC V24, CMS/HCC V28) [...] Associated Diagnosis Comments COMPLETE BLOOD COUNT Routine 01/03/2025 6:35 AM EDT Schizoaffective disorder, unspecified (CMS/HCC V24, CMS/HCC V28) documented in this encounter Results * (ABNORMAL) Complete blood count (01/03/2025 6:35 AM EDT) WBC 14.1(H) 4.8 - 10.8 K/mcL LAB HEMETOLOGY METHOD 01/03/2025 7:46 AM EDT [facility] RBC 4.50 4.50 - 5.50 M/mcL LAB HEMETOLOGY METHOD 01/03/2025 7:46 AM EDT [facility] Hemoglobin 12.2(L) 13.5 - 17.5 g/dL LAB HEMETOLOGY METHOD 01/03/2025 7:46 AM EDT [facility] Hematocrit 39.8(L) 42.0 - 54.0 % LAB HEMETOLOGY METHOD 01/03/2025 7:46 AM EDT [facility] MCV 88.1 79.0 - 98.0 FL LAB HEMETOLOGY METHOD 01/03/2025 7:46 AM EDT [facility] MCH 27.0 27.0 - 32.0 pcg LAB HEMETOLOGY METHOD 01/03/2025 7:46 AM EDT [facility] MCHC 30.7(L) 32.0 - 37.0 g/dL LAB HEMETOLOGY METHOD 01/03/2025 7:46 AM EDT [facility] RDW 13.7 11.0 - 15.0 % LAB HEMETOLOGY METHOD 01/03/2025 7:46 AM EDT [facility] Platelets 262 130 - 400 K/mcL LAB HEMETOLOGY METHOD 01/03/2025 7:46 AM EDT [facility] MPV 9.9 7.0 - 11.0 FL LAB HEMETOLOGY METHOD 01/03/2025 7:46 AM EDT [facility] NRBC 0.0 <1.0 % LAB HEMETOLOGY METHOD 01/03/2025 7:46 AM EDT [facility] NRBC Absolute 0.00 <0.10 K/mcL LAB HEMETOLOGY METHOD 01/03/2025 7:46 AM EDT [facility] Blood Venous blood specimen / Unknown 01/03/2025 6:35 AM EDT 01/03/2025 7:27 AM EDT us Forest Wood MD LAB BLOOD ORDERABLES Final Resul t [facility] [address] [place], [place] [address] [phone] documented in this encounter Visit Diagnoses Diagnosis Schizoaffective disorder, unspecified ([facility] V24, [facility] V28) documented in this encounter Care Teams Embedded Software Test Engineer Relationship Specialty Start Date End Date Forest Wood MD [address] [place] [address] Dr [address] [place] PCP - General Internal Medicine 11/07/24 documented as of this encounter
--- OUTSIDE RECORDS SUMMARY | 2025-06-04 10:18 | XMS_ITS | Encounter Summary ---
Author Organization [employer] Address [address] [place] [address] Care Team Providers Care Mapping Supervisor Name Role Phone Forest Wood MD Primary Care Provider [phone] Encounter Details Date Type Department Care Team (Latest Contact Info) Description 03/30/2025 Lab Requisition [facility] - Main Lab 299 [facility] [place] [address] Forest Wood MD [address] [place] [address] [address] LOYD Banks Schizoaffective disorder, unspecified [...] Diagnosis Comments CBC WITH AUTO DIFFERENTIAL Routine 03/30/2025 6:33 AM EDT Schizoaffective disorder, unspecified (CMS/HCC V24, CMS/HCC V28) COMPLETE BLOOD COUNT Routine 03/30/2025 6:33 AM EDT Schizoaffective disorder, unspecified (CMS/HCC V24, CMS/HCC V28) CBC AND DIFFERENTIAL Routine 03/30/2025 6:33 AM EDT Schizoaffective disorder, unspecified (CMS/HCC V24, CMS/HCC V28) documented in this encounter Results * (ABNORMAL) CBC auto differential (03/30/2025 6:33 AM EDT) WBC 14.6(H) 4.8 - 10.8 K/[facility]/30/2025 2:21 PM [facility] LAB RBC 4.30(L) 4.50 - 5.50 M/mcL LAB HEMETOLOGY METHOD 03/30/2025 2:21 PM [facility] LAB Hemoglobin 11.5(L) 13.5 - 17.5 g/dL LAB HEMETOLOGY METHOD 03/30/2025 2:21 PM [facility] LAB Hematocrit 37.8(L) 42.0 - 54.0 % LAB HEMETOLOGY METHOD 03/30/2025 2:21 PM [facility] LAB MCV 88.7 79.0 - 98.0 FL LAB HEMETOLOGY METHOD 03/30/2025 2:21 PM [facility] LAB MCH 27.0 27.0 - 32.0 pcg LAB HEMETOLOGY METHOD 03/30/2025 2:21 PM [facility] LAB MCHC 30.4(L) 32.0 - 37.0 g/dL LAB HEMETOLOGY METHOD 03/30/2025 2:21 PM [facility] LAB RDW 14.5 11.0 - 15.0 % LAB HEMETOLOGY METHOD 03/30/2025 2:21 PM [facility] LAB Platelets 261 130 - 400 K/mcL LAB HEMETOLOGY METHOD 03/30/2025 2:21 PM [facility] LAB MPV 9.9 7.0 - 11.0 FL LAB HEMETOLOGY METHOD 03/30/2025 2:21 PM [facility] LAB NRBC 0.0 <1.0 % LAB HEMETOLOGY METHOD 03/30/2025 2:21 PM [facility] LAB NRBC Absolute 0.00 <0.10 K/mcL LAB HEMETOLOGY METHOD 03/30/2025 2:21 PM [facility] LAB Neutrophils Relative 71.4 % LAB HEMETOLOGY METHOD 03/30/2025 2:21 PM [facility] LAB Lymphocytes Relative 18.9 % LAB HEMETOLOGY METHOD 03/30/2025 2:21 PM [facility] LAB Monocytes Relative 6.5 % LAB HEMETOLOGY METHOD 03/30/2025 2:21 PM [facility] LAB Eosinophils Relative 2.0 % LAB HEMETOLOGY METHOD 03/30/2025 2:21 PM [facility] LAB Basophils Relative 0.5 % LAB HEMETOLOGY METHOD 03/30/2025 2:21 PM [facility] LAB Immature Granulocytes Relative 0.7 % LAB HEMETOLOGY METHOD 03/30/2025 2:21 PM [facility] LAB Neutrophils Absolute 10.46(H) 1.50 - 7.00 K/mcL LAB HEMETOLOGY METHOD 03/30/2025 2:21 PM [facility] LAB Lymphocytes Absolute 2.77 1.00 - 5.00 K/mcL LAB HEMETOLOGY METHOD 03/30/2025 2:21 PM [facility] LAB Monocytes Absolute 0.96 0.20 - 1.00 K/mcL LAB HEMETOLOGY METHOD 03/30/2025 2:21 PM [facility] LAB Eosinophils Absolute 0.29 0.00 - 0.50 K/mcL LAB HEMETOLOGY METHOD 03/30/2025 2:21 PM [facility] LAB Basophils Absolute 0.08 0.00 - 0.20 K/mcL LAB HEMETOLOGY METHOD 03/30/2025 2:21 PM [facility] LAB Immature Granulocytes Absolute 0.11(H) 0.00 - 0.03 K/mcL LAB HEMETOLOGY METHOD 03/30/2025 2:21 PM [facility] LAB Blood Venous blood specimen / Unknown 03/30/2025 6:33 AM EDT 03/30/2025 7:11 AM EDT us Forest Wood MD LAB BLOOD ORDERABLES Final Resul t [facility] LAB [address] [place] [address], [place] [phone] * (ABNORMAL) Complete blood count (03/30/2025 6:33 AM EDT) WBC 14.6(H) 4.8 - 10.8 K/mcL LAB HEMETOLOGY METHOD 03/30/2025 7:24 AM EDT [facility] LAB RBC 4.30(L) 4.50 - 5.50 M/mcL LAB HEMETOLOGY METHOD 03/30/2025 7:24 AM EDT [facility] LAB Hemoglobin 11.5(L) 13.5 - 17.5 g/dL LAB HEMETOLOGY METHOD 03/30/2025 7:24 AM EDT [facility] LAB Hematocrit 37.8(L) 42.0 - 54.0 % LAB HEMETOLOGY METHOD 03/30/2025 7:24 AM EDT [facility] LAB MCV 88.7 79.0 - 98.0 FL LAB HEMETOLOGY METHOD 03/30/2025 7:24 AM EDT [facility] LAB MCH 27.0 27.0 - 32.0 pcg LAB HEMETOLOGY METHOD 03/30/2025 7:24 AM EDT [facility] LAB MCHC 30.4(L) 32.0 - 37.0 g/dL LAB HEMETOLOGY METHOD 03/30/2025 7:24 AM EDT [facility] LAB RDW 14.5 11.0 - 15.0 % LAB HEMETOLOGY METHOD 03/30/2025 7:24 AM EDT [facility] LAB Platelets 261 130 - 400 K/mcL LAB HEMETOLOGY METHOD 03/30/2025 7:24 AM EDT [facility] LAB MPV 9.9 7.0 - 11.0 FL LAB HEMETOLOGY METHOD 03/30/2025 7:24 AM EDT [facility] LAB NRBC 0.0 <1.0 % LAB HEMETOLOGY METHOD 03/30/2025 7:24 AM EDT [facility] LAB NRBC Absolute 0.00 <0.10 K/mcL LAB HEMETOLOGY METHOD 03/30/2025 7:24 AM EDT [facility] LAB Blood Venous blood specimen / Unknown 03/30/2025 6:33 AM EDT 03/30/2025 7:11 AM EDT us Forest Wood MD LAB BLOOD ORDERABLES Final Resul t [facility] LAB [address] [place] [address], documented in this encounter Visit Diagnoses Diagnosis Schizoaffective disorder, unspecified (CMS/HCC V24, CMS/HCC V28) documented in this encounter Care Teams Mapping Supervisor Relationship Specialty Start Date End Date Forest Wood MD [address] [place] [address] Dr Kojo [address] [place] [address] PCP - General Internal Medicine 11/07/24 documented as of this encounter
--- OUTSIDE RECORDS SUMMARY | 2025-06-04 10:18 | XMS_ITS | Clinical Summary ---
Author Organization [facility] Address [address] [place] [address] Care Team Providers Care Boiler Out Name Role Phone Unavailable Primary Care Provider [...]
--- OUTSIDE RECORDS SUMMARY | 2025-06-04 10:18 | XMS_ITS | Encounter Summary ---
Author Organization [employer] Address [address] [place] [address] Care Team Providers Care Director Web Name Role Phone Forest Wood MD Primary Care Provider [phone] Encounter Details Date Type Department Care Team (Latest Contact Info) Description 12/04/2024 Lab Requisition [facility] - Main Lab 299 [facility] [place] [address] Forest Wood MD [address] [place] [address] Dr [address] [place] Schizoaffective disorder, unspecified (CMS/HCC V24, CMS/HCC V28) [...] Associated Diagnosis Comments COMPLETE BLOOD COUNT Routine 12/04/2024 6:59 AM EDT Schizoaffective disorder, unspecified (CMS/HCC) PHOSPHORUS Routine 12/04/2024 6:59 AM EDT Schizoaffective disorder, unspecified (CMS/HCC) documented in this encounter Results * Phosphorus (12/04/2024 6:59 AM EDT) Phosphorus 4.2 2.5 - 4.5 mg/dL LAB CHEMISTRY METHOD 12/04/2024 8:54 AM EDT [facility] LAB Blood Venous blood specimen / Unknown 12/04/2024 6:59 AM EDT 12/04/2024 7:55 AM EDT us Forest Wood MD LAB BLOOD ORDERABLES Final Resul t [facility] [address] [place] [address], * (ABNORMAL) Complete blood count (12/04/2024 6:59 AM EDT) WBC 14.0(H) 4.8 - 10.8 K/mcL LAB HEMETOLOGY METHOD 12/04/2024 8:29 AM EDT [facility] LAB RBC 4.50 4.50 - 5.50 M/mcL LAB HEMETOLOGY METHOD 12/04/2024 8:29 AM EDT [facility] LAB Hemoglobin 12.0(L) 13.5 - 17.5 g/dL LAB HEMETOLOGY METHOD 12/04/2024 8:29 AM [facility] LAB Hematocrit 39.5(L) 42.0 - 54.0 % LAB HEMETOLOGY METHOD 12/04/2024 8[facility] MCV 88.2 79.0 - 98.0 FL LAB HEMETOLOGY METHOD 12/04/2024 8:29 AM [facility] LAB MCH 26.8(L) 27.0 - 32.0 pcg LAB HEMETOLOGY METHOD 12/04/2024 8:[facility] MCHC 30.4(L) 32.0 - 37.0 g/dL LAB HEMETOLOGY METHOD 12/04/2024 8:29 AM EDT [facility] LAB RDW 13.4 11.0 - 15.0 % LAB HEMETOLOGY METHOD 12/04/2024 8:29 AM [facility] LAB Platelets 220 130 - 400 K/mcL LAB HEMETOLOGY METHOD 12/04/2024 8:29 [facility] MPV 10.4 7.0 - 11.0 FL LAB HEMETOLOGY METHOD 12/04/2024 8:29 AM EDT [facility] LAB NRBC 0.0 <1.0 % LAB HEMETOLOGY METHOD 12/04/2024 8:29 AM EDT [facility] LAB NRBC Absolute 0.00 <0.10 K/mcL LAB HEMETOLOGY METHOD 12/04/2024 8:29 AM EDT [facility] LAB Blood Venous blood specimen / Unknown 12/04/2024 6:59 AM EDT 12/04/2024 7:55 AM EDT us Forest Wood MD LAB BLOOD ORDERABLES Final Resul t [facility] [address] [place] [address], documented in this encounter Visit Diagnoses Diagnosis Schizoaffective disorder, unspecified (CMS/HCC V24, CMS/HCC V28) documented in this encounter Care Teams Director Web Relationship Specialty Start Date End Date Forest Wood MD [address] [place] [address] [place] PCP - General Internal Medicine 11/07/24 documented as of this encounter
--- OUTSIDE RECORDS SUMMARY | 2025-06-04 10:18 | XMS_ITS | Encounter Summary ---
Author Organization [facility] Address [address] [place] [address] Care Team Providers Care Medical Office Technologist Name Role Phone Forest Wood MD Primary Care Provider Encounter Details Date Type Department Care Team (Late st Contact Info) Description 11/08/2024 Lab Requisition [facility] Lab 299 [facility] [place] [address] Forest Wood MD [address] [place] [address] [address] LOYD Banks Other intermodal dispatcher (current) drug therapy Social History Tobacco Use [...] DIFFERENTIAL Routine 11/08/2024 6:31 AM EST Other [facility] (current) drug therapy CBC AND DIFFERENTIAL Routine 11/08/2024 6:31 AM EST Other intermodal dispatcher (current) drug therapy documented in this encounter Results * (ABNORMAL) CBC auto differential (11/08/2024 6:31 AM EST) WBC 11.2(H) 4.8 - 10.8 K/mcL LAB HEMETOLOGY METHOD 11/08/2024 7:43 AM EST [facility] LAB RBC 4.20(L) 4.50 - 5.50 M/mcL LAB HEMETOLOGY METHOD 11/08/2024 7:43 AM EST [facility] LAB Hemoglobin 11.5(L) 13.5 - 17.5 g/dL LAB HEMETOLOGY METHOD 11/08/2024 7:43 AM [facility] LAB Hematocrit 37.7(L) 42.0 - 54.0 % LAB HEMETOLOGY METHOD 11/08/2024 7:43 AM [facility] LAB MCV 89.1 79.0 - 98.0 FL LAB HEMETOLOGY METHOD 11/08/2024 7:43 AM [facility] LAB MCH 27.2 27.0 - 32.0 pcg LAB HEMETOLOGY METHOD 11/08/2024 7:43 AM [facility] LAB MCHC 30.5(L) 32.0 - 37.0 g/dL LAB HEMETOLOGY METHOD 11/08/2024 7:43 AM [facility] LAB RDW 13.3 11.0 - 15.0 % LAB HEMETOLOGY METHOD 11/08/2024 7:43 AM [facility] LAB Platelets 238 130 - 400 K/mcL LAB HEMETOLOGY METHOD 11/08/2024 7:43 AM [facility] LAB MPV 9.9 7.0 - 11.0 FL LAB HEMETOLOGY METHOD 11/08/2024 7:43 AM [facility] LAB NRBC 0.0 <1.0 % LAB HEMETOLOGY METHOD 11/08/2024 7:43 AM [facility] LAB NRBC Absolute 0.00 <0.10 K/mcL LAB HEMETOLOGY METHOD 11/08/2024 7:43 AM [facility] LAB Neutrophils Relative 66.3 % LAB HEMETOLOGY METHOD 11/08/2024 7:43 AM [facility] LAB Lymphocytes Relative 18.2 % LAB HEMETOLOGY METHOD 11/08/2024 7:43 AM [facility] LAB Monocytes Relative 8.5 % LAB HEMETOLOGY METHOD 11/08/2024 7:43 AM [facility] LAB Eosinophils Relative 5.7 % LAB HEMETOLOGY METHOD 11/08/2024 7:43 AM EST [facility] LAB Basophils Relative 0.8 % LAB HEMETOLOGY METHOD 11/08/2024 7:43 AM [facility] LAB Immature Granulocytes Relative 0.5 % LAB HEMETOLOGY METHOD 11/08/2024 7:43 AM [facility] LAB Neutrophils Absolute 7.39(H) 1.50 - 7.00 K/mcL LAB HEMETOLOGY METHOD 11/08/2024 7:43 AM [facility] LAB Lymphocytes Absolute 2.03 1.00 - 5.00 K/mcL LAB HEMETOLOGY METHOD 11/08/2024 7:43 AM [facility] LAB Monocytes Absolute 0.95 0.20 - 1.00 K/mcL LAB HEMETOLOGY METHOD 11/08/2024 7:43 AM EST [facility] LAB Eosinophils Absolute 0.64(H) 0.00 - 0.50 K/mcL LAB HEMETOLOGY METHOD 11/08/2024 7:43 AM [facility] LAB Basophils Absolute 0.09 0.00 - 0.20 K/mcL LAB HEMETOLOGY METHOD 11/08/2024 7:43 AM [facility] LAB Immature Granulocytes Absolute 0.06(H) 0.00 - 0.03 K/mcL LAB HEMETOLOGY METHOD 11/08/2024 7:43 AM [facility] LAB Blood Venous blood specimen / Unknown 11/08/2024 6:31 AM EST 11/08/2024 7:18 AM EST us Forest Wood MD LAB BLOOD ORDERABLES Final Resul t [facility] [address] [place] [address], documented in this encounter Visit Diagnoses Diagnosis Other intermodal dispatcher (current) drug therapy documented in this encounter Care Teams Medical Office Technologist Relationship Specialty Start Date End Date Forest Wood MD [address] [place] [address] Dr [address] LOYD Banks PCP - General Internal Medicine 11/07/24 documented as of this encounter
--- OUTSIDE RECORDS SUMMARY | 2025-06-04 10:18 | XMS_ITS | Encounter Summary ---
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 Social History Tobacco Use Types Packs/Day Years Used Date Smoking Tobacco: Never Assessed Sex and Gender Information Value Date Recorded Sex Assigned at Not on file Legal Sex Male 6:30 AM EST Gender Identity Not on file Sexual Orientation Not on file documented as of this encounter Plan of Treatment Pending Results Name Type Priority Associated Diagnoses Date /Time Red tube Lab Routine 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 05/08/2025 6:47 AM EDT documented as of this encounter Procedures Procedure Name Priority Date/Time Associated Diagnosis Comments CBC WITH AUTO DIFFERENTIAL Routine 05/08/2025 6:47 [...] bilateral secondary osteoarthritis of first carpometacarpal joints documented in this encounter Results * (ABNORMAL) CBC auto differential (05/08/2025 6:47 AM EDT) WBC 14.3(H) 4.8 - 10.8 K/mcL LAB HEMETOLOGY METHOD [facility] RBC 4.40(L) 4.50 - 5.50 M/mcL LAB HEMETOLOGY METHOD 05/08/2025 7:54 AM [facility] LAB Hemoglobin 11.9(L) 13.5 - 17.5 g/dL LAB HEMETOLOGY METHOD 05/08/2025 7:54 AM [facility] LAB Hematocrit 39.3(L) 42.0 - 54.0 % LAB HEMETOLOGY METHOD 05/08/2025 7:54 AM [facility] LAB MCV 88.7 79.0 - 98.0 FL LAB HEMETOLOGY METHOD 05/08/2025 7:54 AM [facility] LAB MCH 26.9(L) 27.0 - 32.0 pcg LAB HEMETOLOGY METHOD 05/08/2025 7:54 AM [facility] LAB MCHC 30.3(L) 32.0 - 37.0 g/dL LAB HEMETOLOGY METHOD 05/08/2025 7:54 AM [facility] LAB RDW 14.2 11.0 - 15.0 % LAB HEMETOLOGY METHOD 05/08/2025 7:54 AM [facility] LAB Platelets 267 130 - 400 K/mcL LAB HEMETOLOGY METHOD 05/08/2025 7:54 AM EDT [facility] MPV 9.9 7.0 - 11.0 FL LAB HEMETOLOGY METHOD 05/08/2025 7:54 [facility] NRBC 0.0 <1.0 % LAB HEMETOLOGY METHOD 05/08/2025 7:54 AM [facility] LAB NRBC Absolute 0.00 <0.10 K/mcL LAB HEMETOLOGY METHOD 05/08/2025 7:54 AM [facility] LAB Neutrophils Relative 71.6 % LAB HEMETOLOGY METHOD 05/08/2025 7:54 AM [facility] LAB Lymphocytes Relative 17.7 % LAB HEMETOLOGY METHOD 05/08/2025 7:54 AM [facility] LAB Monocytes Relative 6.5 % LAB HEMETOLOGY METHOD 05/08/2025 7:54 AM [facility] LAB Eosinophils Relative 2.3 % LAB HEMETOLOGY METHOD 05/08/2025 7:54 AM [facility] LAB Basophils Relative 0.8 % LAB HEMETOLOGY METHOD 05/08/2025 7:54 AM [facility] LAB Immature Granulocytes Relative 1.1 % LAB HEMETOLOGY METHOD 05/08/2025 7:54 AM [facility] LAB Neutrophils Absolute 10.21(H) 1.50 - 7.00 K/mcL LAB HEMETOLOGY METHOD 05/08/2025 7:54 AM [facility] LAB Lymphocytes Absolute 2.52 1.00 - 5.00 K/mcL LAB HEMETOLOGY METHOD 05/08/2025 7:54 AM [facility] LAB Monocytes Absolute 0.93 0.20 - 1.00 K/mcL LAB HEMETOLOGY METHOD 05/08/2025 7:54 AM [facility] LAB Eosinophils Absolute 0.33 0.00 - 0.50 K/mcL LAB HEMETOLOGY METHOD 05/08/2025 7:54 AM EDT [facility] LAB Basophils Absolute 0.11 0.00 - 0.20 K/mcL LAB HEMETOLOGY METHOD 05/08/2025 7:54 AM EDT [facility] LAB Immature Granulocytes Absolute 0.15(H) 0.00 - 0.03 K/mcL LAB HEMETOLOGY METHOD 05/08/2025 7:54 AM EDT [facility] LAB Blood Venous blood specimen / Unknown 05/08/2025 6:47 AM EDT 05/08/2025 7:35 AM EDT us Forest Wood MD LAB BLOOD ORDERABLES Final Resul t Performing Organization Address [facility]/ZIP Co de Phone Number [facility] LAB [address] [place] [address], [place] [phone] * Vitamin D 25 hydroxy (05/08/2025 6:47 AM EDT) Vit D, 25-Hydroxy 44.8 30.0 - 80.0 ng/mL LAB CHEMISTRY METHOD 05/08/2025 10:33 AM EDT [facility] LAB Blood Venous blood specimen / Unknown 05/08/2025 6:47 AM EDT 05/08/2025 7:35 AM EDT us Forest Wood MD LAB BLOOD ORDERABLES Final Resul t Performing Organization Address City/[facility]/ZIP Co de Phone Number [facility] [address] [place] [address], [place] [phone] * Albumin (05/08/2025 6:47 AM EDT) Albumin 3.4 3.2 - 5.0 g/dL LAB CHEMISTRY METHOD 05/08/2025 9:39 AM EDT [facility] Blood Venous blood specimen / Unknown 05/08/2025 6:47 AM EDT 05/08/2025 7:35 AM EDT us Forest Wood MD LAB BLOOD ORDERABLES Final Resul t Performing Organization Address City/[facility]/ZIP Co de Phone Number [facility] [address] [place] [address], [place] [phone] * (ABNORMAL) Parathyroid hormone intact (05/08/2025 6:47 AM EDT) PTH 104.3(H) 18.5 - 88.0 pcg/mL LAB CHEMISTRY METHOD 05/08/2025 10:33 AM EDT [facility] LAB Blood Venous blood specimen / Unknown 05/08/2025 6:47 AM EDT 05/08/2025 7:35 AM EDT us Forest Wood MD LAB BLOOD ORDERABLES Final Resul t Performing Organization Address [facility] Co de Phone Number [facility] [address] [place] [address], [place] [phone] * (ABNORMAL) Renal function panel (05/08/2025 6:47 AM EDT) Pathologist [facility] Sodium 141 133 - 145 mmol/L LAB CHEMISTRY METHOD 05/08/2025 9:39 AM EDT [facility] Potassium 4.4 3.5 - 5.5 mmol/L LAB CHEMISTRY METHOD 05/08/2025 9:39 AM EDT [facility] Chloride 109 96 - 110 mmol/L LAB CHEMISTRY METHOD 05/08/2025 9:39 AM EDT [facility] CO2 27 21 - 32 mmol/L LAB CHEMISTRY METHOD 05/08/2025 9:39 AM EDT [facility] Anion Gap 5 3 - 11 LAB CHEMISTRY METHOD 05/08/2025 9:39 AM [facility] Glucose 77 70 - 100 mg/dL LAB CHEMISTRY METHOD 05/08/2025 9:39 AM EDT [facility] BUN 43(H) 5 - 25 mg/dL LAB CHEMISTRY METHOD 05/08/2025 9:39 AM [facility] Creatinine 2.75(H) 0.70 - 1.30 mg/dL LAB CHEMISTRY METHOD 05/08/2025 9:39 AM [facility] LAB eGFR 24(L) >=60 mL/min/1. 73m2 LAB CHEMISTRY METHOD 05/08/2025 9:39 AM [facility] Comment:Calculation based on the Chronic Kidney Disease Epidemiology Collaboration (CKD-EPI) equation refit without adjustment for race. BUN/Creatinine Ratio 15.6 LAB CHEMISTRY METHOD 05/08/2025 9:39 AM [facility] Albumin 3.4 3.2 - 5.0 g/dL LAB CHEMISTRY METHOD 05/08/2025 9:39 AM [facility] Calcium 9.4 8.5 - 10.5 mg/dL LAB CHEMISTRY METHOD 05/08/2025 9:39 AM [facility] Phosphorus 4.9(H) 2.5 - 4.5 mg/dL LAB CHEMISTRY METHOD 05/08/2025 9:39 AM [facility] LAB Blood Venous blood specimen / Unknown 05/08/2025 6:47 AM EDT 05/08/2025 7:35 AM EDT us Forest Wood MD LAB BLOOD ORDERABLES Final Resul t [facility] [address] [place] [address], documented in this encounter Visit Diagnoses Diagnosis 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
--- OUTSIDE RECORDS SUMMARY | 2025-06-04 10:18 | XMS_ITS | Encounter Summary ---
Author Organization [employer] Address [address] [place] [address] Care Team Providers Care Hand Woven Carpet And Rug Mender Name Role Phone Forest Wood MD Primary Care Provider [phone] Encounter Details Date Type Department Care Team (Late st Contact Info) Description 05/04/2025 Lab Requisition [facility] - Main Lab [address] [facility] [place] [address] Forest Wood MD [address] [place] [address] [address] LOYD Banks Other long term care pharmacist (current) drug therapy; Chronic kidney disease, stage [...] Associated Diagnosis Comments COMPREHENSIVE METABOLIC PANEL Routine 05/04/2025 6:35 AM EDT Other long term care pharmacist (current) drug therapy Chronic kidney disease, stage 3b (CMS/HCC V24, CMS/HCC V28) documented in this encounter Results * (ABNORMAL) Comprehensive metabolic panel (05/04/2025 6:35 AM EDT) Sodium 141 133 - 145 mmol/L LAB CHEMISTRY METHOD 05/04/2025 7:49 AM EDT [facility] Potassium 4.2 3.5 - 5.5 mmol/L LAB CHEMISTRY METHOD 05/04/2025 7:49 AM EDT [facility] Chloride 109 96 - 110 mmol/L LAB CHEMISTRY METHOD 05/04/2025 7:49 AM [facility] CO2 28 21 - 32 mmol/L LAB CHEMISTRY METHOD 05/04/2025 7:49 AM [facility] Anion Gap 4 3 - 11 LAB CHEMISTRY METHOD 05/04/2025 7:49 AM [facility] Glucose 85 70 - 100 mg/dL LAB CHEMISTRY METHOD 05/04/2025 7:49 AM [facility] BUN 43(H) 5 - 25 mg/dL LAB CHEMISTRY METHOD 05/04/2025 7:49 AM [facility] Creatinine 2.87(H) 0.70 - 1.30 mg/dL LAB CHEMISTRY METHOD 05/04/2025 7:49 AM [facility] eGFR 23(L) >=60 mL/min/1. 73m2 LAB CHEMISTRY METHOD 05/04/2025 7:49 AM [facility] Comment:Calculation based on the Chronic Kidney Disease Epidemiology Collaboration (CKD-EPI) equation refit without adjustment for race. BUN/Creatinine Ratio 15.0 LAB CHEMISTRY METHOD 05/04/2025 7:49 AM [facility] Calcium 8.9 8.5 - 10.5 mg/dL LAB CHEMISTRY METHOD 05/04/2025 7:49 AM [facility] AST (SGOT) 23 10 - 42 unit/L LAB CHEMISTRY METHOD 05/04/2025 7:49 AM [facility] ALT (SGPT) 29 10 - 60 unit/L LAB CHEMISTRY METHOD 05/04/2025 7:49 AM [facility] Alkaline Phosphatase 82 42 - 121 unit/L LAB CHEMISTRY METHOD 05/04/2025 7:49 AM [facility] Total Protein 6.9 6.0 - 8.0 g/dL LAB CHEMISTRY METHOD 05/04/2025 7:49 AM [facility] Albumin 3.2 3.2 - 5.0 g/dL LAB CHEMISTRY METHOD 05/04/2025 7:49 AM EDT [facility] Total Bilirubin 0.3 0.0 - 1.4 mg/dL LAB CHEMISTRY METHOD 05/04/2025 7:49 AM EDT [facility] Blood Venous blood specimen / Unknown 05/04/2025 6:35 AM EDT 05/04/2025 7:14 AM EDT us Forest Wood MD LAB BLOOD ORDERABLES Final Resul t [facility] [address] [place] [address], documented in this encounter Visit Diagnoses Diagnosis Other long term care pharmacist (current) drug therapy Chronic kidney disease, stage 3b (CMS/HCC V24, CMS/HCC V28) documented in this encounter Care Teams Hand [employer] Relationship Specialty Start Date End Date Forest Wood MD [address] [place] [address] Dr [address] [place] PCP - General Internal Medicine 11/07/24 documented as of this encounter
--- OUTSIDE RECORDS SUMMARY | 2025-06-04 10:18 | XMS_ITS | Encounter Summary ---
Author Organization [facility] Address [address] [place] [address] Phone Care Team Providers Care Defective Cigarette Slitter Name Role Phone Forest Wood Primary Care Provider [phone] Encounter Details Date Type Department Care Team (Late Contact Info) Description 02/26/2021 Orders Only [facility] [address] [place] [address] Provider, MD Christian Social History [...] Visit [facility] [address] [facility] [address] [place] [address] Terrance Downing MD [address] [facility] [address] [place] [address] documented as of this encounter Procedures Procedure Name Priority Date/Time Associated Diagnosis Comments EXT RESULT ENTRY Routine 02/26/2021 documented in this encounter Results * EXT RESULT ENTRY (02/26/2021) us Historical Provider LAB BLOOD ORDERABLES Natalia l Result documented in this encounter Visit Diagnoses Not on filedocumented in this encounter Care Teams Defective Cigarette Slitter Relationship Specialty Start Date End Date Forest Wood DO [address] [place] [address] [address] [place] [address] PCP - General 09/30/20 documented as of this encounter
--- OUTSIDE RECORDS SUMMARY | 2025-06-04 10:18 | XMS_ITS | Encounter Summary ---
Author Organization [employer] Address [address] [place] [address] Care Team Providers Care Coating Inspector Name Role Phone Forest Wood MD Primary Care Provider [phone] Encounter Details Date Type Department Care Team (Late st Contact Info) Description 10/06/2024 Lab Requisition [facility] - Main Lab [address] [facility] [place] [address] Forest Wood MD [address] [place] [address] [address] [place] Encounter for screening for malignant neoplasm of prostate; Hypotension, unspecified; Chronic kidney disease, unspecified; Schizoaffective disorder, unspecified (CMS/HCC V24, CMS/HCC V28) [...] CBC auto differential (10/06/2024 6:31 AM EST) WBC 12.7(H) 4.8 - 10.8 K/mcL LAB HEMETOLOGY METHOD 10/06/2024 7:23 AM [facility] RBC 4.40(L) 4.50 - 5.50 M/mcL LAB HEMETOLOGY METHOD 10/06/2024 7:23 AM [facility] Hemoglobin 11.9(L) 13.5 - 17.5 g/dL LAB HEMETOLOGY METHOD 10/06/2024 7:23 AM [facility] Hematocrit 39.2(L) 42.0 - 54.0 % LAB HEMETOLOGY METHOD 10/06/2024 7:23 AM [facility] MCV 89.1 79.0 - 98.0 FL LAB HEMETOLOGY METHOD 10/06/2024 7:23 AM [facility] MCH 27.0 27.0 - 32.0 pcg LAB HEMETOLOGY METHOD 10/06/2024 7:23 AM [facility] MCHC 30.4(L) 32.0 - 37.0 g/dL LAB HEMETOLOGY METHOD 10/06/2024 7:23 AM [facility] RDW 13.2 11.0 - 15.0 % LAB HEMETOLOGY METHOD 10/06/2024 7:23 AM [facility] Platelets 239 130 - 400 K/mcL LAB HEMETOLOGY METHOD 10/06/2024 7:23 AM [facility] MPV 9.8 7.0 - 11.0 FL LAB HEMETOLOGY METHOD 10/06/2024 7:23 AM [facility] NRBC 0.0 <1.0 % LAB HEMETOLOGY METHOD 10/06/2024 7:23 AM [facility] NRBC Absolute 0.00 <0.10 K/mcL LAB HEMETOLOGY METHOD 10/06/2024 7:23 AM [facility] Neutrophils Relative 63.5 % LAB HEMETOLOGY METHOD 10/06/2024 7:23 AM [facility] Lymphocytes Relative 23.0 % LAB HEMETOLOGY METHOD 10/06/2024 7:23 AM [facility] Monocytes Relative 7.3 % LAB HEMETOLOGY METHOD 10/06/2024 7:23 AM [facility] Eosinophils Relative 4.7 % LAB HEMETOLOGY METHOD 10/06/2024 7:23 AM [facility] Basophils Relative 0.7 % LAB HEMETOLOGY METHOD 10/06/2024 7:23 AM [facility] Immature Granulocytes Relative 0.8 % LAB HEMETOLOGY METHOD 10/06/2024 7:23 AM [facility] Neutrophils Absolute 8.05(H) 1.50 - 7.00 K/mcL LAB HEMETOLOGY METHOD 10/06/2024 7:23 AM [facility] Lymphocytes Absolute 2.91 1.00 - 5.00 K/mcL LAB HEMETOLOGY METHOD 10/06/2024 7:23 AM [facility] Monocytes Absolute 0.93 0.20 - 1.00 K/mcL LAB HEMETOLOGY METHOD 10/06/2024 7:23 AM [facility] Eosinophils Absolute 0.59(H) 0.00 - 0.50 K/mcL LAB HEMETOLOGY METHOD 10/06/2024 7:23 AM EST [facility] Basophils Absolute 0.09 0.00 - 0.20 K/[facility] LAB HEMETOLOGY METHOD 10/06/2024 7:23 AM EST [facility] Immature Granulocytes Absolute 0.10(H) 0.00 - 0.03 K/[facility] LAB HEMETOLOGY METHOD 10/06/2024 7:23 AM EST [facility] Blood Venous blood specimen / Unknown 10/06/2024 6:31 AM EST 10/06/2024 7:17 AM EST us Forest Wood MD LAB BLOOD ORDERABLES Final Resul t Performing Organization Address [facility] de Phone Number [facility] [address] [place] [address], * Prostate specific antigen diagnostic (10/06/2024 6:31 AM EST) PSA 0.25 0.00 - 4.00 ng/mL LAB CHEMISTRY METHOD 10/06/2024 9:46 AM EST [facility] Blood Venous blood specimen / Unknown 10/06/2024 6:31 AM EST 10/06/2024 7:17 AM EST Narrative [facility] - 10/06/2024 9:46 AM EST The Siemens Advia Centaur Chemiluminescent Immunoassay is used. Results obtained with different assay methods or kits cannot be used interchangeably. Results cannot be interpreted as absolute evidence of the presence or absence of malignant disease. us Forest Wood MD LAB BLOOD ORDERABLES Final Resul t Performing Organization Address [facility]/ZIP Co de Phone Number [facility] [address] [place] [address], [place] [phone] * Phosphorus (10/06/2024 6:31 AM EST) Phosphorus 3.8 2.5 - 4.5 mg/dL LAB CHEMISTRY METHOD 10/06/2024 8:08 AM [facility] Blood Venous blood specimen / Unknown 10/06/2024 6:31 AM EST 10/06/2024 7:17 AM EST us Forest Wood MD LAB BLOOD ORDERABLES Final Resul t [facility] [address] [place] [address], [place] [phone] * (ABNORMAL) Comprehensive metabolic panel (10/06/2024 6:31 AM EST) Sodium 141 133 - 145 mmol/L LAB CHEMISTRY METHOD 10/06/2024 9:46 AM [facility] Potassium 5.0 3.5 - 5.5 mmol/L LAB CHEMISTRY METHOD 10/06/2024 9:46 AM [facility] Chloride 110 96 - 110 mmol/L LAB CHEMISTRY METHOD 10/06/2024 9:46 AM [facility] CO2 27 21 - 32 mmol/L LAB CHEMISTRY METHOD 10/06/2024 9:46 AM [facility] Anion Gap 4 3 - 11 LAB CHEMISTRY METHOD 10/06/2024 9:46 AM [facility] Glucose 90 70 - 100 mg/dL LAB CHEMISTRY METHOD 10/06/2024 9:46 AM [facility] BUN 62(H) 5 - 25 mg/dL LAB CHEMISTRY METHOD 10/06/2024 9:46 AM [facility] Comment:Results verified by repeat testing Creatinine 2.88(H) 0.70 - 1.30 mg/dL LAB CHEMISTRY METHOD 10/06/2024 9:46 AM [facility] eGFR 23(L) >=60 mL/min/1. 73m2 LAB CHEMISTRY METHOD 10/06/2024 9:46 AM [facility] Comment:Calculation based on the Chronic Kidney Disease Epidemiology Collaboration (CKD-EPI) equation refit without adjustment for race. BUN/Creatinine Ratio 21.5 LAB CHEMISTRY METHOD 10/06/2024 9:46 AM [facility] Calcium 9.4 8.5 - 10.5 mg/dL LAB CHEMISTRY METHOD 10/06/2024 9:46 AM [facility] AST (SGOT) 30 10 - 42 unit/L LAB CHEMISTRY METHOD 10/06/2024 9:46 AM [facility] ALT (SGPT) 41 10 - 60 unit/L LAB CHEMISTRY METHOD 10/06/2024 9:46 AM [facility] Alkaline Phosphatase 74 42 - 121 unit/L LAB CHEMISTRY METHOD 10/06/2024 9:46 AM [facility] Total Protein 7.1 6.0 - 8.0 g/dL LAB CHEMISTRY METHOD 10/06/2024 9:46 AM [facility] Albumin 3.3 3.2 - 5.0 g/dL LAB CHEMISTRY METHOD 10/06/2024 9:46 AM [facility] Total Bilirubin 0.3 0.0 - 1.4 mg/dL LAB CHEMISTRY METHOD 10/06/2024 9:46 AM [facility] Blood Venous blood specimen / Unknown 10/06/2024 6:31 AM EST 10/06/2024 7:17 AM EST us Forest Wood MD LAB BLOOD ORDERABLES Final Resul t [facility] [address] [place] [address], documented in this encounter Visit Diagnoses Diagnosis Encounter for screening for malignant neoplasm of prostate Hypotension, unspecified Chronic kidney disease, unspecified Schizoaffective disorder, unspecified (CMS/HCC V24, CMS/HCC V28) documented in this encounter Care Teams Coating Inspector Relationship Specialty Start Date End Date Forest Wood MD [address] [place] [address] Dr [address] [place] PCP - General Internal Medicine 11/07/24 documented as of this encounter
--- OUTSIDE RECORDS SUMMARY | 2025-06-04 10:18 | XMS_ITS | Clinical Summary ---
Author Organization [facility] Address [address] [place] [phone] Phone Care Team Providers Care Airline Hostess Name Role Phone NinaForest Primary Care Provider [phone] Allergies Active Allergy Reactions Criticality Noted Date [...] Office Visit [facility] [address] [phone] Terrance Downing MD Chronic kidney disease, stage [...] Office Visit [facility] P. [address] [phone] Terrance Downing MD [address] [phone] Health Maintenance Due Date Last Done Comments Pneumococcal Vaccine: 50+ Ye ars (1 of 2 - PCV) 1975 Colorectal Cancer Screening: Annual FOBT 2005 Colorectal Cancer Screening: Colonoscopy 2005 Colorectal Cancer Screening: Sigmoidoscopy 2005 Influenza Vaccine (#1) 2025 Hepatitis B Vaccine Aged Out No longe r eligible based on patient's age to complete this topic Insurance Medicare [facility] Medicare [facility] Care Teams Airline Hostess Relationship Specialty Start Date End Date Forest Wood DO [address] [place], [place] PCP - General 09/30/20
--- OUTSIDE RECORDS SUMMARY | 2025-06-04 10:19 | XMS_ITS | Encounter Summary ---
Author Organization [facility] Address [address] [place] [address] Care Team Providers Care Airplane Pilot Crop Dusting Name Role Phone Forest Wood MD Primary Care Provider [phone] Encounter Details Date Type Department Care Team (Latest Contact Info) Description 11/07/2024 Lab Requisition [facility] [address] [facility] [employer] [place] [address] Forest Wood MD [address] [place] [address] [address] [place] Schizoaffective disorder, unspecified (CMS/HCC V24, CMS/HCC V28) [...] LAB CHEMISTRY METHOD 11/07/2024 7:[address] [facility] Potassium 5.1 3.5 - 5.5 mmol/L LAB CHEMISTRY METHOD 11/07/2024 7:[address] [facility] Chloride 107 96 - 110 mmol/L LAB CHEMISTRY METHOD 11/07/2024 7:[address] [facility] CO2 28 21 - 32 mmol/L LAB CHEMISTRY METHOD 11/07/2024 7:[address] [facility] Anion Gap 3 3 - 11 LAB CHEMISTRY METHOD 11/07/2024 7:[address] [facility] Glucose 107(H) 70 - 100 mg/dL LAB CHEMISTRY METHOD 11/07/2024 7:[address] [facility] BUN 44(H) 5 - 25 mg/dL LAB CHEMISTRY METHOD 11/07/2024 7:[address] [facility] Creatinine 3.33(H) 0.70 - 1.30 mg/dL LAB CHEMISTRY METHOD 11/07/2024 7:[address] [facility] eGFR 19(L) >=60 mL/min/1. 73m2 LAB CHEMISTRY METHOD 11/07/2024 7:[address] [facility] Comment:Calculation based on the Chronic Kidney Disease Epidemiology Collaboration (CKD-EPI) equation refit without adjustment for race. BUN/Creatinine Ratio 13.2 LAB CHEMISTRY METHOD 11/07/2024 7:[address] [facility] Calcium 9.7 8.5 - 10.5 mg/dL LAB CHEMISTRY METHOD 11/07/2024 7:[address] [facility] AST (SGOT) 26 10 - 42 unit/L LAB CHEMISTRY METHOD 11/07/2024 7:[address] [facility] ALT (SGPT) 39 10 - 60 unit/L LAB CHEMISTRY METHOD 11/07/2024 7:[address] [facility] Alkaline Phosphatase 77 42 - 121 unit/L LAB CHEMISTRY METHOD 11/07/2024 7:[address] [facility] Total Protein 6.9 6.0 - 8.0 g/dL LAB CHEMISTRY METHOD 11/07/2024 7:[address] [facility] Albumin 3.1(L) 3.2 - 5.0 g/dL LAB CHEMISTRY METHOD 11/07/2024 7:[address] [facility] Total Bilirubin 0.3 0.0 - 1.4 mg/dL LAB CHEMISTRY METHOD 11/07/2024 7:35 AM EST [facility] Blood Venous blood specimen / Unknown 11/07/2024 6:31 AM EST 11/07/2024 7:03 AM EST us Forest Wood MD LAB BLOOD ORDERABLES Final Resul t [facility] [address] [place] [address], documented in this encounter Visit Diagnoses Diagnosis Schizoaffective disorder, unspecified (CMS/HCC V24, CMS/HCC V28) documented in this encounter Care Teams Airplane Pilot Crop Dusting Relationship Specialty Start Date End Date Forest Wood MD [address] [place] [address] Dr [address] [place] PCP - General Internal Medicine 11/07/24 documented as of this encounter
== END 2025-06-04 09:55 | disposition home or self-care (01) ==
LOC: HO.HGS 08:56
PROVIDERS: PCP Hospitalist; Visit Provider Surgery
DX: K56.600 Partial intestinal obstruction, unspecified as to cause (principal)
CPT/HCPCS: 99213

== ENCOUNTER → 2025-06-04 08:55 | Outpatient (BNVA) | payer MEDICARE, MEDICAID, SELFPAY | PROVIDERS: PCP Hospitalist; Visit Provider Surgery | DX: K56.600 Partial intestinal obstruction, unspecified as to cause (principal) | CPT/HCPCS: 99212 ==

== ENCOUNTER 2025-06-26 16:22 | Inpatient (IN) | payer MEDICARE, MEDICAID, SELFPAY ==
--- NOTE | ~2025-06-26 | CT_ITS ---
CLINICAL HISTORY: JOSE L, met acidosis CT abdomen and pelvis without contrast Comparison: WI/SR - CT ABDOMEN PELVIS WITHOUT IV CONTRAST - 02/19/2025 09:55 AM EDT US/SR - US ABDOMEN - 11/18/22 08:02 EST Findings: Limited evaluation without intravenous contrast. Bilateral basilar pulmonary opacities and bilateral basilar pleural thickening. The gallbladder is absent. No significant biliary ductal dilatation. Unenhanced liver and spleen demonstrate no definite focal abnormality. Unenhanced pancreas within normal limits. No peripancreatic inflammatory stranding. No renal or ureteral stones and no hydronephrosis or hydroureter. Very small bilateral renal hypodense lesions possibly cysts but incompletely evaluated on this noncontrast study. No bowel obstruction, pneumoperitoneum, or pneumatosis. The sigmoid colon is significantly elongated and redundant and extends up to the mid abdomen with no CT findings to suggest volvulus. Mildly dilated small bowel loops in mid to lower abdomen may represent mild ileus No free fluid or definite loculated fluid collection. Appendix not identified. No pericecal inflammatory changes. Multiple small retroperitoneal para-aortic lymph nodes the largest measuring 1.3 cm x 1 cm. These are nonspecific and could be reactive. Urinary bladder is distended with multiple small bladder diverticula. Prostate small or absent. Bilateral small fat containing inguinal hernias. No aneurysm of the abdominal aorta. No acute fracture. Diffuse demineralization and degenerative changes of the spine. L4 vertebral body hemangioma. IMPRESSION: 1. No bowel obstruction with no pneumatosis or pneumoperitoneum. 2. Mild small bowel distention which may represent small bowel ileus. 3. Bilateral basilar pleural thickening and bilateral pulmonary opacities may represent atelectasis versus pneumonia 4. Distended urinary bladder with bladder diverticula. 5. Additional nonacute findings as described. This document has been electronically signed by: Sandra Peters MD on 06/27/2025 00:51:26
--- NOTE | ~2025-06-26 | CT_ITS ---
CLINICAL HISTORY: AMS CT head without contrast Comparison: None provided Findings: No intra-axial mass, midline shift, hydrocephalus, or acute hemorrhage. There is atrophy. Nonspecific supratentorial white matter hypodensities most suggestive of mild chronic small-vessel ischemic changes. There is mucosal thickening in left maxillary sinus and left ethmoid air cells. The orbits are within normal limits. There is no acute skull fracture. IMPRESSION: 1. No acute intracranial findings. This document has been electronically signed by: Sandra Peters MD on 06/27/2025 00:50:47
--- NOTE | ~2025-06-26 | XR_ITS ---
CLINICAL HISTORY: sob, hypotension Single view of the chest. COMPARISON: XR chest dated 02/19/25 at 12:45 EDT FINDINGS: Low lung volumes. Borderline cardiomegaly. Consolidation along the left hemidiaphragm and retrocardiac space. Blunting of the left costophrenic angle. No pneumothorax. No acute fracture. IMPRESSION: 1. Small left pleural effusion with overlying consolidation. Consolidation may represent atelectasis, aspiration pneumonitis or pneumonia. 2. Low lung volumes. This document has been electronically signed by: Mathieu Crouch MD on 06/26/2025 17:55:41
[2025-06-26 16:30] VITALS: BP 107/65; PULSE 106; RESP 20; O2SAT 87; BMI 37.3
--- NOTE | 2025-06-26 16:33 | ECG_ITS ---
Test Reason : SOB Blood Pressure : */* mmHG Vent. 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
--- NOTE | 2025-06-26 16:37 | ED_ITS ---
HPI - URI/Sore Throat General Chief Complaint: Upper Respiratory Symptoms Stated Complaint: coming from snf lethargic, cough,congestion Source: patient and EMS Mode of arrival: EMS Limitations: other (History of traumatic brain injury) History of Present Illness ED Provider: Dr. Yesika Griffin HPI Narrative: Patient comes to the emergency room from [facility]. Patient presents complaining of lethargy today, couple of days of cough, congestion. Patient denies any fever chest pain or shortness of breath. According to EMS, when they picked him up, patient's oxygen saturation was in the mid 80s. Patient's initial blood pressure in the low 100s. Patient is awake and alert, answering questions appropriately, states that he feels very weak, denies nausea vomiting or diarrhea. Related Data Home Medications ?Medication ?Instructions ?Recorded ?Confirmed albuterol sulfate 90 mcg/actuation 2 puff inhalation Q 4H PRN Wheezing 07/10/21 06/04/25 aerosol inhaler ascorbic acid (vitamin C) 500 mg 500 mg PO DAILY 07/1006/04/25 tablet (Vitamin C) calcitriol 0.25 mcg capsule 0.25 mcg PO TUFR 07/10/21 06/04/25 clomipramine 50 mg capsule 100 mg PO BEDTIME ANXIETY 1 06/04/25 docusate sodium 100 mg tablet 100 mg PO BID 07/10/21 0 06/04/25 fenofibrate nanocrystallized 145 145 mg PO DAILY 07/1006/04/25 mg tablet ferrous sulfate 325 mg (65 mg 325 mg PO DAILY 07/10/21 06/04/25 iron) tablet fludrocortisone 0.1 mg tablet 0.2 mg PO DAILY 07/10/21 06/04/25 guaifenesin 100 mg/5 mL oral liquid 200 mg PO Q4H PRN Cough 07/10/21 06/04/25 loratadine 10 mg tablet 10 mg PO DAILY PRN Allergy S ymptoms 07/10/21 06/04/25 multivitamin 1 tab PO DAILY 07/10/2105/21 sennosides 8.6 mg tablet (senna) 8.6 mg PO DAILY PRN C onstipation 07/10/21 06/04/25 bisacodyl 10 mg rectal suppository 10 mg CA DAILY PRN Constipation 05/13/22 06/04/25 hydrocortisone 10 mg tablet 10 mg PO TID 05/13/2205/21 clozapine 200 mg tablet 200 mg PO BEDTIME 06/02/22 0 06/04/25 acetaminophen 325 mg tablet 650 mg PO Q6H PRN Fever Or Pain 02/19/25 06/04/25 alfuzosin 10 mg tablet,extended 10 mg PO DAILY 06/04/25 release 24 hr aluminum-mag hydroxide-simethicone 30 ml PO Q4H PRN GI Upset 02/19/25 06/04/25 200 mg-200 mg-20 mg/5 mL oral susp carboxymethylcellulose sodium 1 % 1 drp ophthalmic (ey e) BID 02/19/25 06/04/25 eye drops (Artificial Tears (carboxymethylcellulose)) clozapine 100 mg tablet 100 mg PO DAILY 02/19/25 ergocalciferol (vitamin D2) 1,250 1,250 mcg PO FR 11/1406/04/25 mcg (50,000 unit) capsule gabapentin 100 mg capsule 200 mg PO TID 02/19/2506/04 menthol 5 % topical patch (Bengay 1 patch topical Q8H PRN muscle ache 02/19/25 06/04/25 Ultra Strength (menthol)) naloxone 4 mg/actuation nasal 4 mg intranasal Q3M PRN overdose 02/19/25 06/04/25 spray (Narcan) omeprazole 40 mg capsule,delayed 40 mg PO BID@0630,163 0 02/19/25 06/04/25 release sennosides 8.6 mg tablet (senna) 8.6 mg PO BID Constip ation 02/19/25 06/04/25 tramadol 50 mg tablet 50 mg PO TID 02/19/25 Previous Rx's ?Medication ?Instructions ?Recorded amlodipine 5 mg tablet 10 mg (2 x 5 mg) PO DAILY #3 0 tabs 02/24/25 Allergies Allergy/AdvReac Type Severity Reaction Status Date / Time NSAIDS (Non-Steroidal Allergy Unknown UNKNOWN Verified 06/26/25 16:33 Anti-Inflamma (NSAIDS (NON-STEROIDAL ANTI-INFLAMMA) Review of Systems 2 Review of Systems: Constitutional : No Weight loss, No Fever, No Chills, No Night Sweats, complaining of fatigue and generalized malaise ENT/Mouth : No Hearing loss, No Ear Pain, No Nasal Congestion, No Sinus Pain, No Hoarseness, No sore throat, No Rhinorrhea, No Swallowing Difficulty Eyes: No Eye Pain, No Swelling, No Redness, No Foreign Body, No Discharge, No Vision Changes Cardiovascular : No Chest Pain, No SOB, No Dyspnea on Exertion, No Orthopnea, No Edema, No Palpitations Respiratory : Complaining of cough, runny nose, no wheezing, no significant shortness of breath Gastrointestinal : No Nausea, No Vomiting, No Diarrhea, No Constipation, No abdominal Pain, No Hematochezia, No Melena Genitourinary : no irregular bleeding, No Dysuria, No Urinary Frequency, No Hematuria, No Urinary Incontinence, No Urgency, No Flank Pain, No Urinary Flow Changes, No Hesitancy Musculoskeletal : No joint pain, No Myalgias, No Joint Swelling Skin : No Skin Lesions, No rash Neuro : No Weakness, No Numbness, No Paresthesias, No Loss of Consciousness, No Dizziness, No Headache Psych : No Anxiety/Panic, No Depression, No SI/HI/AH/VH, No Social Issues, Heme/Lymph: No Bruising, No Bleeding,No Lymphadenopathy Endocrine : No Polyuria, No Polydipsia, No Temperature Intolerance [facility] Past Medical History Medical History Partial small bowel obstruction Schizoaffective disorder Chronic kidney disease, stage 3 Anemia Hyperlipidemia Orthostatic hypotension GERD (gastroesophageal reflux disease) Attention deficit hyperactivity disorder Neurogenic bladder Hematuria TBI (traumatic brain injury) Surgical History History of surgery Social History Social History Household Members: Other Housing: Shelter Do you presently have visiting nurse or other home services: Yes Alcohol intake: never Patient Tobacco Use Status: Former Tobacco user Tobacco use type: Cigarette and Cigar Advance Directives: Yes Advance Directives on File: Yes Advance Directives Date on File: 07/10/21 service: No Current occupational status: disabled Physical Exam 2 Exam: Exam: Appearance: Alert. Oriented X3. No acute distress. Eyes: Pupils equal, round and reactive to light. ENT: Pharynx normal. Neck: Normal inspection. Neck supple. No lymph nodes noted. No crepitus CVS: Normal heart rate and rhythm. Pulses normal. Normal S1 and S2 Respiratory: No respiratory distress. Breath sounds normal. No Wheezing. No rales Abdomen: Soft and nontender. No rigidity. No distention. Skin: Skin warm and clammy Normal skin color. Normal skin turgor. Extremities: No lower extremity edema. No Lacerations. No Rash Neuro: Oriented X 3. No motor deficit. No sensory deficit. Moving all extremities. No slurred speech. CN 2 through 12 grossly intact Psych: calm, cooperative, normal affect Vital Signs: Vital Signs: Last Vital Signs Temp 101.8 F H 06/26/25 16:58 Pulse 106 H 06/26/25 16:58 Resp 18 06/26/25 16:58 BP 109/67 06/26/25 16:58 Pulse Ox 94 06/26/25 16:58 O2 Del Method Oxymizer 06/26/25 16:58 O2 Flow Rate 5 06/26/25 16:58 BMI result Body Mass Index 37.3 Course Course Course Narrative: Patient complaining of cough for several days. Initial oxygen saturation 87% on room air. Patient needed an oxygen upward titration of oxygen. Nasal cannula was switched to an OxyMask patient 6 to 7 L of oxygen to maintain an oxygen saturation of 94% Blood pressure 107/65 Patient is actively coughing. URI is suspected Patient is receiving empiric treatment with IV fluids based on ideal weight of 59 kg, patient is obese. Also, patient receiving IV antibiotics All of patient's labs and imaging pending. Medications Administered Generic Name Dose Route Start Last Admin Trade Name Freq PRN Reason Stop Dose Admin Sodium Chloride 2,000 mls @ 999 mls/hr 06/26/25 16:45 06/26/25 17:00 Ns IV 06/26/25 20:45 999 mls/hr .Q2H1M BRUCE Administration Discontinued Medications Generic Name Dose Route Start Last Admin Trade Name Freq PRN Reason Stop Dose Admin Piperacillin Sod/Tazobactam 50 mls @ 100 mls/hr 06/26/25 16:36 06/26/25 16:59 Sod 3.375 gm/ Sodium Chloride IV 06/26/25 17:05 100 mls/hr ONCE ONE Administration Medical Decision Making Medical Decision Making [facility] Narrative: My interpretation of EKG: Sinus tachycardia, heart rate 106, right bundle branch block, no signs of STEMI/NSTEMI, QTC 510 My interpretation of labs: Patient's white blood cell count, at baseline hematology. Patient's chemistry shows a creatinine of 6.05, patient's baseline is 2.2. Venous pH 7.27, pCO2 41, bicarb 19. Serology negative for influenza and COVID. LFTs within normal limits. Chest x-ray shows likely a left infiltrate. Patient her hard time keeping an oxygen saturation above 90 on nasal cannula even at 5 L. Patient was switched to an OxyMask. Now oxygen saturation 95% on 5 L. Heart rate in the 90s, blood pressure 117/67. As mentioned above, patient already received IV fluids, total of 2 L the based on ideal weight and antibiotics. Differential Diagnosis Differential Diagnoses: The differential diagnosis associated with the presentation includes (Pneumonia, COVID, influenza, viral URI) Admission/Observation Consideration of admission/observation: Escalation of care including admission/observation considered Consult Healthcare Provider Management of the patient was discussed with: Hospitalist Lab Data [facility] Lab Attestation statement: I reviewed the patient's lab results. 06/26/25 16:36 06/26/25 16:36 Labs: Lab Results 06/26/25 06/26/25 06/26/25 Range/Units 16:36 16:43 16:48 WBC 10.8 (4.8-10.8) X10*3/uL RBC 4.48 L (4.60-5.80) X10*6/uL Hgb 12.2 L (14.0-18.0) g/dl Hct 39.6 L (42.0-52.0) % MCV 88.4 (80.0-98.0) fL MCH 27.2 (27.0-33.0) pg MCHC 30.8 L (31.0-36.0) g/dl RDW 13.6 (11.0-16.0) % Plt Count 274 D (160-400) X10*3/uL MPV 9.6 (9.4-12.4) fL Immature Gran % (Auto) 0.4 (0.0-0.4) % Neut % (Auto) 79.0 H (45-73) % Lymph % (Auto) 9.3 L (20-40) % Erie % (Auto) 10.2 (2-11) % Eos % (Auto) 0.5 (0-4) % Baso % (Auto) 0.6 (0-2) % Lymph # (Auto) 1.0 L (1.2-4.9) X10*3/uL Erie # (Auto) 1.1 (0.1-1.2) X10*3/uL Eos # (Auto) 0.1 (0.0-0.4) X10*3/uL Baso # (Auto) 0.1 (0.0-0.2) X10*3/uL Abs Immat Gran (auto) 0.04 H (0.00-0.03) X10*3/uL Absolute Neuts (auto) 8.6 H (2.0-8.3) x10*3/uL Absolute Nucleated RBC 0.000 (0.0-0.012) X10*3/uL Nucleated RBC % (auto) 0.0 (0.0-0.2) /100WBC VBG pH 7.27 L (7.32-7.43) VBG pCO2 41 mmHg VBG pO2 53 mmHg VBG HCO3 19 L (22-26) mmol/L VBG O2 Saturation 78.0 % VBG Base Excess -7.2 mmol/L Sodium 146 H (135-145) mmol/L Potassium 4.5 D (3.3-5.1) mmol/L Chloride 111 H (96-108) mmol/L Carbon Dioxide 21 L (22-29) mmol/L Anion Gap 19 (12-20) BUN 89 H (9-16) mg/dL Creatinine 6.05 H* (0.5-1.4) mg/dL Estim Creat Clear Calc 12.8 Estimated GFR 9 Random Glucose 142 H (60-115) mg/dL Lactic Acid 1.4 (0.5-2.0) mmol/L Calcium 9.2 (8.4-10.2) mg/dL Magnesium 2.5 (1.6-2.6) mg/dL Total Bilirubin 0.5 (0.0-1.0) mg/dL Direct Bilirubin 0.3 (0.0-0.5) mg/dL AST 28 (5-37) U/L ALT 28 (0-40) U/L Alkaline Phosphatase 77 (39-117) U/L Troponin I High Sens 8.2 (<3.5-35.0) ng/L Total Protein 7.7 (6.5-8.0) g/dL Albumin 4.0 (3.5-5.0) g/dL COVID-19 (EVELYN) Negative (Negative) COVID-19 Clin Com See Note Influenza Type A (VALERIO) Negative (Negative) Influenza Type B (VALERIO) Negative (Negative) Influenza A & B Note See Note Independent Interpretation I performed an independent interpretation of an: EKG and Plain X-Ray Radiology Impression Discussion of test interpretation with radiology: I have reviewed the radiologist's reading. Radiologist Impression: 1. Small left pleural effusion with overlying consolidation. Consolidation may represent atelectasis, aspiration pneumonitis or pneumonia. 2. Low lung volumes. Independent Historian Clinical information obtained from an independent historian. History obtained from or confirmed by: EMS External Record Review External record reviewed: Inpatient record (A proximally 4 months ago, patient was admitted for JOSE L and similar presentation) Critical Care Time Critical Care Time Critical Care Time: Yes Total Critical Care Time: 60 Attestation: I have personally provided critical care time. Time includes review of lab data, radiology results, discussion with consultants, and monitoring for potential decompensation. Intervention performed as documented. Discharge Plan Discharge Clinical Impression: Pneumonia, JOSE L (acute kidney injury) Patient Disposition: Admitted As Inpatient Print Language: Croatian
[2025-06-26 16:43] LABS: MANUAL DIFF FLAG NO
[2025-06-26 16:44] LABS: Hematocrit 39.6 % (42.0-52.0); Hemoglobin 12.2 g/dl (14.0-18.0); Imm Gran Abs Auto 0.04 X10*3/uL (0.00-0.03); Imm Gran Pct Auto 0.4 % (0.0-0.4); Lymphocytes Absolute Auto 1.0 X10*3/uL (1.2-4.9); Mean Corpuscular HGB Conc 30.8 g/dl (31.0-36.0); Mean Corpuscular Hemoglobin 27.2 pg (27.0-33.0); Mean Corpuscular Volume 88.4 fL (80.0-98.0); NRBC Abs Auto 0.000 X10*3/uL (0.0-0.012); NRBC Pct Auto 0.0 /100WBC (0.0-0.2); Platelet Count 274 X10*3/uL (160-400); Red Blood Count 4.48 X10*6/uL (4.60-5.80); White Blood Count 10.8 X10*3/uL (4.8-10.8)
[2025-06-26 16:46] LABS: Venous Blood Gas Refer to POC result
[2025-06-26 16:47] LABS: VBG HCO3 19 mmol/L (22-26); VBG O2 % Saturation 78.0 %
[2025-06-26 16:58] VITALS: BP 109/67; PULSE 106; RESP 18; TEMP 38.8; O2SAT 94
[2025-06-26 17:07] LABS: Troponin-I High Sensitivity 8.2 ng/L (<3.5-35.0)
[2025-06-26 17:08] LABS: Alanine Aminotransferase 28 U/L (0-40); Albumin Level 4.0 g/dL (3.5-5.0); Alkaline Phosphatase 77 U/L (39-117); Anion Gap 19 (12-20); Aspartate Amino Transferase 28 U/L (5-37); Blood Urea Nitrogen 89 mg/dL (9-16); Calcium 9.2 mg/dL (8.4-10.2); Carbon Dioxide 21 mmol/L (22-29); Chloride 111 mmol/L (96-108); Creatinine Clr Calc Pharmacy 12.8; Estimated Glomerular Filt Rate 9; Magnesium 2.5 mg/dL (1.6-2.6); Potassium 4.5 mmol/L (3.3-5.1); Sodium 146 mmol/L (135-145); Total Protein 7.7 g/dL (6.5-8.0)
[2025-06-26 17:23] LABS: IDNOW Serial# 58CA691E
[2025-06-26 17:24] LABS: COVID-19 Test Negative (Negative); IDNOW Serial# 55D5AD1C; Influenza B2 Negative (Negative)
[2025-06-26 18:35] VITALS: BP 117/67; PULSE 97; RESP 20; TEMP 36.6; O2SAT 93
--- OUTSIDE RECORDS SUMMARY | 2025-06-26 18:58 | XMS_ITS | Encounter Summary ---
Author Organization [facility] [address] Address [address] [place] [address] Care Team Providers Care Touch Up Edger Name Role Phone Forest Wood MD Primary Care Provider [phone] Encounter Details Date Type Department Care Team (Late st Contact Info) Description 08/14/2024 Lab Requisition [facility] Lab [address] [place] [address] Forest Wood MD [address] [place] [address] [address] [place] Vitamin D deficiency, unspecified Social History Tobacco [...] LAB CHEMISTRY METHOD 08/14/2024 7:39 AM EST [facility] Blood Venous blood specimen / Unknown 08/14/2024 6:35 AM EST 08/14/2024 7:06 AM EST us Forest Wood MD LAB BLOOD ORDERABLES Final Resul t [facility] [address] [place], [place] [address] [phone] documented in this encounter Visit Diagnoses Diagnosis Vitamin D deficiency, unspecified documented in this encounter Care Teams Touch Up Edger Relationship Specialty Start Date End Date Forest oWod MD [address] [place] [address] [address] [place] PCP - General Internal Medicine 11/07/24 documented as of this encounter
--- OUTSIDE RECORDS SUMMARY | 2025-06-26 18:58 | XMS_ITS | Encounter Summary ---
Author Organization [facility] Address [address] [place] [address] Care Team Providers Care Account Manager Education Name Role Phone Forest Wood MD Primary Care Provider [phone] Encounter Details Date Type Department Care Team (Latest Contact Info) Description 11/07/2024 Lab Requisition [facility] Lab [address] [facility] [place] [address] Forest Wood MD [address] [place] [address] [address] [place], [place] Schizoaffective disorder, unspecified (CMS/HCC V24, CMS/HCC [...] LAB CHEMISTRY METHOD 11/07/2024 7:35 AM EST [facility] Potassium 5.1 3.5 - 5.5 mmol/L LAB CHEMISTRY METHOD 11/07/2024 7:35 AM EST [facility] Chloride 107 96 - 110 mmol/L LAB CHEMISTRY METHOD 11/07/2024 7:35 AM EST [facility] CO2 28 21 - 32 [...] 7:35 AM [facility] Total Protein 6.9 6.0 - 8.0 g/dL LAB CHEMISTRY METHOD 11/07/2024 7:35 AM [facility] Albumin 3.1(L) 3.2 - 5.0 g/dL LAB CHEMISTRY METHOD 11/07/2024 7:35 AM [facility] Total Bilirubin 0.3 0.0 - 1.4 mg/dL LAB CHEMISTRY METHOD 11/07/2024 7:35 AM EST [facility] Blood Venous blood specimen / Unknown 11/07/2024 6:31 AM EST 11/07/2024 7:03 AM EST us Forest Wood MD LAB BLOOD ORDERABLES Final Resul t [facility] [address] [place] [address], documented in this encounter Visit Diagnoses Diagnosis Schizoaffective disorder, unspecified (CMS/HCC V24, CMS/HCC V28) documented in this encounter Care Teams Account Manager Education Relationship Specialty Start Date End Date Forest Wood MD [address] [place] [address] Dr [address] [place] PCP - General Internal Medicine 11/07/24 documented as of this encounter
--- OUTSIDE RECORDS SUMMARY | 2025-06-26 18:58 | XMS_ITS | Encounter Summary ---
Author Organization [facility] Address [address] [place] [address] Care Team Providers Care Electric Transfer Operator Name Role Phone Forest Wood MD Primary Care Provider [phone] Encounter Details Date Type Department Care Team (Latest Contact Info) Description 01/03/2025 Lab Requisition [facility] Lab [address] [facility] [place] [address] Forest Wood MD [address] [place] [address] [address] [place] Schizoaffective disorder, unspecified (CMS/HCC V24, CMS/HCC V28) [...] LAB HEMETOLOGY METHOD 01/03/2025 7:46 AM EDT [facility] RBC 4.50 4.50 - 5.50 M/mcL LAB HEMETOLOGY METHOD 01/03/2025 7:46 AM EDT [facility] Hemoglobin 12.2(L) 13.5 - 17.5 g/dL LAB HEMETOLOGY METHOD 01/03/2025 7:46 AM EDT [facility] Hematocrit 39.8(L) 42.0 - 54.0 % LAB HEMETOLOGY METHOD 01/03/2025 7:46 AM EDT [facility] MCV 88.1 79.0 - 98.0 FL LAB HEMETOLOGY METHOD 01/03/2025 7:46 AM EDT [facility] MCH 27.0 27.0 - 32.0 pcg LAB HEMETOLOGY METHOD 01/03/2025 7:46 AM EDT [facility] MCHC 30.7(L) 32.0 - 37.0 g/dL LAB HEMETOLOGY METHOD 01/03/2025 7:46 AM EDT [facility] RDW 13.7 11.0 - 15.0 % LAB HEMETOLOGY METHOD 01/03/2025 7:46 AM EDT [facility] Platelets 262 130 - 400 K/mcL LAB HEMETOLOGY METHOD 01/03/2025 7:46 AM EDT [facility] MPV 9.9 7.0 - 11.0 FL LAB HEMETOLOGY METHOD 01/03/2025 7:46 AM EDT [facility] NRBC 0.0 <1.0 % LAB HEMETOLOGY METHOD 01/03/2025 7:46 AM EDT [facility] NRBC Absolute 0.00 <0.10 K/mcL LAB HEMETOLOGY METHOD 01/03/2025 7:46 AM EDT [facility] Blood Venous blood specimen / Unknown 01/03/2025 6:35 AM EDT 01/03/2025 7:27 AM EDT us Forest Wood MD LAB BLOOD ORDERABLES Final Resul t [facility] [address] [place], [place] [address] [phone] documented in this encounter Visit Diagnoses Diagnosis Schizoaffective disorder, unspecified ([facility] V24, [facility] V28) documented in this encounter Care Teams Electric Transfer Operator Relationship Specialty Start Date End Date Forest Wood MD [address] [place] [address] Dr [address] [place] PCP - General Internal Medicine 11/07/24 documented as of this encounter
--- OUTSIDE RECORDS SUMMARY | 2025-06-26 18:58 | XMS_ITS | Encounter Summary ---
Author Organization [facility] Address [address] [place] [address] Care Team Providers Care Belt Loop Maker Name Role Phone Forest Wood MD Primary Care Provider [phone] Encounter Details Date Type Department Care Team (Latest Contact Info) Description 12/04/2024 Lab Requisition [facility] [address] [facility] [place] [address] Forest Wood MD [address] [place] [address] Dr [address] [place] Schizoaffective disorder, unspecified (CMS/HCC V24, CMS/HCC V28) [...] LAB CHEMISTRY METHOD 12/04/2024 8:54 AM EDT [facility] Blood Venous blood specimen / Unknown 12/04/2024 6:59 AM EDT 12/04/2024 7:55 AM EDT us Forest Wood MD LAB BLOOD ORDERABLES Final Resul t [facility] [address] [place] [address], * (ABNORMAL) Complete blood count (12/04/2024 6:59 AM EDT) WBC 14.0(H) 4.8 - 10.8 K/mcL LAB HEMETOLOGY METHOD 12/04/2024 8:[address] [facility] RBC 4.50 4.50 - 5.50 M/mcL LAB HEMETOLOGY METHOD 12/04/2024 8:[address] [facility] Hemoglobin 12.0(L) 13.5 - 17.5 g/dL LAB HEMETOLOGY METHOD 12/04/2024 8:29 AM [facility] Hematocrit 39.5(L) 42.0 - 54.0 % LAB HEMETOLOGY [facility] MCV 88.2 79.0 - 98.0 FL LAB HEMETOLOGY METHOD 12/04/2024 8:29 AM [facility] MCH 26.8(L) 27.0 - 32.0 pcg LAB HEMETOLOGY METHOD [facility] MCHC 30.4(L) 32.0 - 37.0 g/dL LAB HEMETOLOGY METHOD 12/04/2024 8:[address] [facility] RDW 13.4 11.0 - 15.0 % LAB HEMETOLOGY METHOD 12/04/2024 8:29 AM [facility] Platelets 220 130 - 400 K/mcL LAB HEMETOLOGY METHOD [facility] MPV 10.4 7.0 - 11.0 FL LAB HEMETOLOGY METHOD 12/04/2024 8:[address] [facility] NRBC 0.0 <1.0 % LAB HEMETOLOGY METHOD 12/04/2024 8:[address] [facility] NRBC Absolute 0.00 <0.10 K/mcL LAB HEMETOLOGY METHOD 12/04/2024 8:[address] [facility] Blood Venous blood specimen / Unknown 12/04/2024 6:59 AM EDT 12/04/2024 7:55 AM EDT us Forest Wood MD LAB BLOOD ORDERABLES Final Resul t [facility] [address] [place] [address], documented in this encounter Visit Diagnoses Diagnosis Schizoaffective disorder, unspecified (CMS/HCC V24, CMS/HCC V28) documented in this encounter Care Teams Belt Loop Maker Relationship Specialty Start Date End Date Forest Wood MD [address] [facility] [address] [place] [address] [place] PCP - General Internal Medicine 11/07/24 documented as of this encounter
--- OUTSIDE RECORDS SUMMARY | 2025-06-26 18:58 | XMS_ITS | Encounter Summary ---
Author Organization [employer] Address [address] [place] [address] Care Team Providers Care Boiler House Inspector Name Role Phone Forest Wood MD Primary Care Provider Encounter Details Date Type Department Care Team (Latest Contact Info) Description 05/08/2025 Lab Requisition [facility] - Main Lab [address] [facility] [place] [address] Forest Wood MD [address] [place] [address] Dr [address] [place], [place] Other bilateral secondary osteoarthritis of first carpometacarpal [...] M/mcL LAB HEMETOLOGY METHOD 05/08/2025 7:54 AM [facility] Hemoglobin 11.9(L) 13.5 - 17.5 g/dL LAB HEMETOLOGY METHOD 05/08/2025 7:54 AM [facility] Hematocrit 39.3(L) 42.0 - 54.0 % LAB HEMETOLOGY METHOD 05/08/2025 7:54 AM [facility] MCV 88.7 79.0 - 98.0 FL LAB HEMETOLOGY METHOD 05/08/2025 7:54 AM [facility] MCH 26.9(L) 27.0 - 32.0 pcg LAB HEMETOLOGY METHOD 05/08/2025 7:54 AM [facility] MCHC 30.3(L) 32.0 - 37.0 g/dL LAB HEMETOLOGY METHOD 05/08/2025 7:54 AM [facility] RDW 14.2 11.0 - 15.0 % LAB HEMETOLOGY METHOD 05/08/2025 7:54 AM [facility] Platelets 267 130 - 400 K/mcL LAB HEMETOLOGY METHOD 05/08/2025 7:54 AM EDT [facility] MPV 9.9 7.0 - 11.0 FL LAB HEMETOLOGY METHOD [facility] NRBC 0.0 <1.0 % LAB HEMETOLOGY METHOD 05/08/2025 7:54 AM [facility] NRBC Absolute 0.00 <0.10 K/mcL LAB HEMETOLOGY METHOD 05/08/2025 7:54 AM [facility] Neutrophils Relative 71.6 % LAB HEMETOLOGY METHOD 05/08/2025 7:54 AM [facility] Lymphocytes Relative 17.7 % LAB HEMETOLOGY METHOD 05/08/2025 7:54 AM [facility] Monocytes Relative 6.5 % LAB HEMETOLOGY METHOD 05/08/2025 7:54 AM [facility] Eosinophils Relative 2.3 % LAB HEMETOLOGY METHOD 05/08/2025 7:54 AM [facility] Basophils Relative 0.8 % LAB HEMETOLOGY METHOD 05/08/2025 7:54 AM [facility] Immature Granulocytes Relative 1.1 % LAB HEMETOLOGY METHOD 05/08/2025 7:54 AM [facility] Neutrophils Absolute 10.21(H) 1.50 - 7.00 K/mcL LAB HEMETOLOGY METHOD 05/08/2025 7:54 AM [facility] Lymphocytes Absolute 2.52 1.00 - 5.00 K/mcL LAB HEMETOLOGY METHOD 05/08/2025 7:54 AM [facility] Monocytes Absolute 0.93 0.20 - 1.00 K/mcL LAB HEMETOLOGY METHOD 05/08/2025 7:54 AM [facility] Eosinophils Absolute 0.33 0.00 - 0.50 K/mcL LAB HEMETOLOGY METHOD 05/08/2025 7:54 AM EDT [facility] Basophils Absolute 0.11 0.00 - 0.20 K/mcL LAB HEMETOLOGY METHOD 05/08/2025 7:54 AM EDT [facility] Immature Granulocytes Absolute 0.15(H) 0.00 - 0.03 K/mcL LAB HEMETOLOGY METHOD 05/08/2025 7:54 AM EDT [facility] Blood Venous blood specimen / Unknown 05/08/2025 6:47 AM EDT 05/08/2025 7:35 AM EDT us Forest Wood MD LAB BLOOD ORDERABLES Final Resul t Performing Organization Address [facility]/ZIP Co de Phone Number [facility] [address] [place] [address], [place] [phone] * Vitamin D 25 hydroxy (05/08/2025 6:47 AM EDT) Vit D, 25-Hydroxy 44.8 30.0 - 80.0 ng/mL LAB CHEMISTRY METHOD 05/08/2025 10:33 AM EDT [facility] Blood Venous blood specimen / Unknown 05/08/2025 6:47 AM EDT 05/08/2025 7:35 AM EDT us Forest Wood MD LAB BLOOD ORDERABLES Final Resul t Performing Organization Address City/[facility]/ZIP Co de Phone Number [facility] [address] [place] [address], [place] [phone] * Albumin (05/08/2025 6:47 AM EDT) Albumin 3.4 3.2 - 5.0 g/dL LAB CHEMISTRY METHOD 05/08/2025 9:39 AM EDT [facility] Blood Venous blood specimen / Unknown 05/08/2025 6:47 AM EDT 05/08/2025 7:35 AM EDT us Forest Wood MD LAB BLOOD ORDERABLES Final Resul t Performing Organization Address City/[facility]/ZIP Co de Phone Number [facility] [address] [place] [address], [place] [phone] * (ABNORMAL) Parathyroid hormone intact (05/08/2025 6:47 AM EDT) PTH 104.3(H) 18.5 - 88.0 pcg/mL LAB CHEMISTRY METHOD 05/08/2025 10:33 AM EDT [facility] Blood Venous blood specimen / Unknown 05/08/2025 6:47 AM EDT 05/08/2025 7:35 AM EDT us Forest Wood MD LAB BLOOD ORDERABLES Final Resul t Performing Organization Address [facility] Co de Phone Number [facility] [address] [place] [address], [place] [phone] * (ABNORMAL) Renal function panel (05/08/2025 6:47 AM EDT) Pathologist [facility] Sodium 141 133 - 145 mmol/L LAB CHEMISTRY METHOD 05/08/2025 9:39 AM EDT [facility] Potassium 4.4 3.5 - 5.5 mmol/L LAB CHEMISTRY METHOD 05/08/2025 9:39 AM EDT [facility] Chloride 109 96 - 110 mmol/L LAB CHEMISTRY METHOD 05/08/2025 9:39 AM EDT [facility] CO2 27 21 - 32 mmol/L LAB CHEMISTRY METHOD 05/08/2025 9:39 AM EDT [facility] Anion Gap 5 3 - 11 LAB CHEMISTRY METHOD 05/08/2025 9:39 AM [facility] Glucose 77 70 - 100 mg/dL LAB CHEMISTRY METHOD 05/08/2025 9:39 AM EDT [facility] BUN 43(H) 5 - 25 mg/dL LAB CHEMISTRY METHOD 05/08/2025 9:39 AM [facility] Creatinine 2.75(H) 0.70 - 1.30 mg/dL LAB CHEMISTRY METHOD 05/08/2025 9:39 AM [facility] eGFR 24(L) >=60 mL/min/1. 73m2 LAB CHEMISTRY METHOD 05/08/2025 9:39 AM [facility] Comment:Calculation based on the Chronic Kidney Disease Epidemiology Collaboration (CKD-EPI) equation refit without adjustment for race. BUN/Creatinine Ratio 15.6 LAB CHEMISTRY METHOD 05/08/2025 9:39 AM [facility] Albumin 3.4 3.2 - 5.0 g/dL LAB CHEMISTRY METHOD 05/08/2025 9:39 AM [facility] Calcium 9.4 8.5 - 10.5 mg/dL LAB CHEMISTRY METHOD 05/08/2025 9:39 AM [facility] Phosphorus 4.9(H) 2.5 - 4.5 mg/dL LAB CHEMISTRY METHOD 05/08/2025 9:39 AM [facility] Blood Venous blood specimen / Unknown 05/08/2025 6:47 AM EDT 05/08/2025 7:35 AM EDT us Forest Wood MD LAB BLOOD ORDERABLES Final Resul t [facility] [address] [place] [address], documented in this encounter Visit Diagnoses Diagnosis 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
--- OUTSIDE RECORDS SUMMARY | 2025-06-26 18:58 | XMS_ITS | Encounter Summary ---
Author Organization [employer] Address [address] [place] [address] Care Team Providers Care Right Of Way Worker Name Role Phone Forest Wood MD Primary Care Provider [phone] Encounter Details Date Type Department Care Team (Latest Contact Info) Description 09/08/2024 Lab Requisition [facility] - Main Lab [address] [facility] [place] [address] Forest Wood MD [address] [place] [address] Dr [address] LOYD Banks Schizoaffective disorder, [...] SST tube (09/08/2024 9:14 AM EST) Pathologist [facility] Extra Tube Hold for add-ons. 09/08/2024 12:01 PM EST [facility] Comment:Auto resulted. Blood Venous blood specimen / Unknown 09/08/2024 9:14 AM EST 09/08/2024 10:17 AM EST us Forest Wood MD LAB BLOOD ORDERABLES Final Resul t [facility] [address] [place] [address], * (ABNORMAL) CBC auto differential (09/08/2024 9:14 AM EST) WBC 14.2(H) 4.8 - 10.8 K/[facility] LAB HEMETOLOGY METHOD 09/08/2024 10:30 AM [facility] RBC 4.90 4.50 - 5.50 M/[facility] LAB HEMETOLOGY METHOD 09/08/2024 10:30 AM [facility] Hemoglobin 13.2(L) 13.5 - 17.5 g/dL LAB HEMETOLOGY METHOD 09/08/2024 10:30 AM [facility] Hematocrit 43.5 42.0 - 54.0 % LAB HEMETOLOGY METHOD 09/08/2024 10:30 AM [facility] MCV 88.8 79.0 - 98.0 FL LAB HEMETOLOGY METHOD 09/08/2024 10:30 AM [facility] MCH 26.9(L) 27.0 - 32.0 pcg LAB HEMETOLOGY METHOD 09/08/2024 10:30 AM [facility] MCHC 30.3(L) 32.0 - 37.0 g/dL LAB HEMETOLOGY METHOD 09/08/2024 10:30 AM [facility] RDW 13.0 11.0 - 15.0 % LAB HEMETOLOGY METHOD 09/08/2024 10:30 AM [facility] Platelets 321 130 - 400 K/mcL LAB HEMETOLOGY METHOD 09/08/2024 10:30 AM [facility] MPV 9.5 7.0 - 11.0 FL LAB HEMETOLOGY METHOD 09/08/2024 10:30 AM [facility] NRBC 0.0 <1.0 % LAB HEMETOLOGY METHOD 09/08/2024 10:30 AM [facility] NRBC Absolute 0.00 <0.10 K/mcL LAB HEMETOLOGY METHOD 09/08/2024 10:30 AM [facility] Neutrophils Relative 72.2 % LAB HEMETOLOGY METHOD 09/08/2024 10:30 AM [facility] Lymphocytes Relative 16.2 % LAB HEMETOLOGY METHOD 09/08/2024 10:30 AM [facility] Monocytes Relative 7.6 % LAB HEMETOLOGY METHOD 09/08/2024 10:30 AM EST [facility] Eosinophils Relative 2.7 % LAB HEMETOLOGY METHOD 09/08/2024 10:30 AM [facility] Basophils Relative 0.8 % LAB HEMETOLOGY METHOD 09/08/2024 10:30 AM [facility] Immature Granulocytes Relative 0.5 % LAB HEMETOLOGY METHOD 09/08/2024 10:30 AM EST [facility] Neutrophils Absolute 10.28(H) 1.50 - 7.00 K/mcL LAB HEMETOLOGY METHOD 09/08/2024 10:30 AM EST [facility] Lymphocytes Absolute 2.30 1.00 - 5.00 K/mcL LAB HEMETOLOGY METHOD 09/08/2024 10:30 AM [facility] Monocytes Absolute 1.08(H) 0.20 - 1.00 K/mcL LAB HEMETOLOGY METHOD 09/08/2024 10:30 AM EST [facility] Eosinophils Absolute 0.39 0.00 - 0.50 K/mcL LAB HEMETOLOGY METHOD 09/08/2024 10:30 AM EST [facility] Basophils Absolute 0.11 0.00 - 0.20 K/mcL LAB HEMETOLOGY METHOD 09/08/2024 10:30 AM [facility] Immature Granulocytes Absolute 0.07(H) 0.00 - 0.03 K/mcL LAB HEMETOLOGY METHOD 09/08/2024 10:30 AM EST [facility] Blood Venous blood specimen / Unknown 09/08/2024 9:14 AM EST 09/08/2024 10:17 AM EST us Forest Wood MD LAB BLOOD ORDERABLES Final Resul t [facility] [address] [place] [address], * Vitamin D 25 hydroxy (09/08/2024 9:14 AM EST) Vit D, 25-Hydroxy 55.0 30.0 - 80.0 ng/mL LAB CHEMISTRY METHOD 09/08/2024 11:26 AM EST [facility] Blood Venous blood specimen / Unknown 09/08/2024 9:14 AM EST 09/08/2024 10:17 AM EST us Forest Wood MD LAB BLOOD ORDERABLES Final Resul t Performing Organization Address [facility] de Phone Number [facility] [address] [place] [address], * Prostate specific antigen screen (09/08/2024 9:14 AM EST) PSA 1.45 0.00 - 4.00 ng/mL LAB CHEMISTRY METHOD 09/08/2024 11:26 AM EST [facility] Blood Venous blood specimen / Unknown 09/08/2024 9:14 AM EST 09/08/2024 10:17 AM EST Narrative [facility] - 09/08/2024 11:26 AM EST The Siemens Advia Centaur Chemiluminescent Immunoassay is used. Results obtained with different assay methods or kits cannot be used interchangeably. Results cannot be interpreted as absolute evidence of the presence or absence of malignant disease. us Forest Wood MD LAB BLOOD ORDERABLES Final Resul t Performing Organization Address City/[facility]/ZIP Co de Phone Number [facility] [address] [place] [address], [place] [phone] * Phosphorus (09/08/2024 9:14 AM EST) Phosphorus 2.7 2.5 - 4.5 mg/dL LAB CHEMISTRY METHOD 09/08/2024 1:56 PM EST [facility] Blood Venous blood specimen / Unknown 09/08/2024 9:14 AM EST 09/08/2024 10:17 AM EST us Forest Wood MD LAB BLOOD ORDERABLES Final Resul t Performing Organization Address [facility] Co de Phone Number [facility] [address] [place] [address], [place] [phone] * (ABNORMAL) Parathyroid hormone intact (09/08/2024 9:14 AM EST) PTH 104.7(H) 18.5 - 88.0 pcg/mL LAB CHEMISTRY METHOD 09/08/2024 11:27 AM EST [facility] Blood Venous blood specimen / Unknown 09/08/2024 9:14 AM EST 09/08/2024 10:17 AM EST us Forest Wood MD LAB BLOOD ORDERABLES Final Resul t Performing Organization Address [facility] de Phone Number [facility] [address] [place] [address], [place] [phone] * Thyroid stimulating hormone (09/08/2024 9:14 AM EST) [facility] TSH 2.07 0.40 - 4.00 mcIU/mL LAB CHEMISTRY METHOD 09/08/2024 11:27 AM EST [facility] Blood Venous blood specimen / Unknown 09/08/2024 9:14 AM EST 09/08/2024 10:17 AM EST us Forest Wood MD LAB BLOOD ORDERABLES Final Resul t Performing Organization Address [facility] Co de Phone Number [facility] [address] [place] [address], [place] [phone] * (ABNORMAL) Lipid panel with reflex to direct LDL (09/08/2024 9:14 AM EST) Pathologist [facility] Cholesterol 150 0 - 200 mg/dL LAB CHEMISTRY METHOD 09/08/2024 1:55 PM [facility] Triglycerides 257(H) 0 - 150 mg/dL LAB CHEMISTRY METHOD 09/08/2024 1:55 PM [facility] HDL 41 >=40 mg/dL LAB CHEMISTRY METHOD 09/08/2024 1:55 PM [facility] LDL Calculated 58 0 - 100 mg/dL LAB CHEMISTRY METHOD 09/08/2024 1:55 PM [facility] VLDL Cholesterol Yonathan 51.4 mg/dL LAB CHEMISTRY METHOD 09/08/2024 1:55 PM [facility] Non HDL Chol. (LDL+VLDL) 109 <145 mg/dL LAB CHEMISTRY METHOD 09/08/2024 1:55 PM [facility] Chol/HDL Ratio 3.7 0.0 - 4.4 LAB CHEMISTRY METHOD 09/08/2024 1:55 PM [facility] Blood Venous blood specimen / Unknown 09/08/2024 9:14 AM EST 09/08/2024 10:17 AM EST us Forest Wood MD LAB BLOOD ORDERABLES Final Resul t [facility] [address] [place] [address], [place] [phone] * (ABNORMAL) Comprehensive metabolic panel (09/08/2024 9:14 AM EST) Sodium 141 133 - 145 mmol/L LAB CHEMISTRY METHOD 09/08/2024 1:55 PM [facility] Potassium 4.1 3.5 - 5.5 mmol/L LAB CHEMISTRY METHOD 09/08/2024 1:55 PM [facility] Chloride 109 96 - 110 mmol/L LAB CHEMISTRY METHOD 09/08/2024 1:55 PM [facility] CO2 25 21 - 32 mmol/L LAB CHEMISTRY METHOD 09/08/2024 1:55 PM [facility] Anion Gap 7 3 - 11 LAB CHEMISTRY METHOD 09/08/2024 1:55 PM [facility] Glucose 107(H) 70 - 100 mg/dL LAB CHEMISTRY METHOD 09/08/2024 1:55 PM [facility] BUN 39(H) 5 - 25 mg/dL LAB CHEMISTRY METHOD 09/08/2024 1:55 PM [facility] Creatinine 2.65(H) 0.70 - 1.30 mg/dL LAB CHEMISTRY METHOD 09/08/2024 1:55 PM [facility] eGFR 26(L) >=60 mL/min/1. 73m2 LAB CHEMISTRY METHOD 09/08/2024 1:55 PM [facility] Comment:Calculation based on the Chronic Kidney Disease Epidemiology Collaboration (CKD-EPI) equation refit without adjustment for race. BUN/Creatinine Ratio 14.7 LAB CHEMISTRY METHOD 09/08/2024 1:55 PM [facility] Calcium 10.0 8.5 - 10.5 mg/dL LAB CHEMISTRY METHOD 09/08/2024 1:55 PM [facility] AST (SGOT) 41 10 - 42 unit/L LAB CHEMISTRY METHOD 09/08/2024 1:55 PM [facility] ALT (SGPT) 45 10 - 60 unit/L LAB CHEMISTRY METHOD 09/08/2024 1:55 PM [facility] Alkaline Phosphatase 81 42 - 121 unit/L LAB CHEMISTRY METHOD 09/08/2024 1:55 PM [facility] Total Protein 7.8 6.0 - 8.0 g/dL LAB CHEMISTRY METHOD 09/08/2024 1:55 PM [facility] Albumin 3.7 3.2 - 5.0 g/dL LAB CHEMISTRY METHOD 09/08/2024 1:55 PM [facility] Total Bilirubin 0.5 0.0 - 1.4 mg/dL LAB CHEMISTRY METHOD 09/08/2024 1:55 PM EST [facility] Blood Venous blood specimen / Unknown 09/08/2024 9:14 AM EST 09/08/2024 10:17 AM EST Forest Wood MD LAB BLOOD ORDERABLES Final Resul t [facility] [address] [place] [address], documented in this encounter Visit Diagnoses Diagnosis Schizoaffective disorder, unspecified (CMS/HCC V24, CMS/HCC V28) documented in this encounter Care Teams Right Of Way Worker Relationship Specialty Start Date End Date Forest Wood MD [address] [place] [address] Dr [address] [place], [place] PCP - General Internal Medicine 11/07/24 documented as of this encounter
--- OUTSIDE RECORDS SUMMARY | 2025-06-26 18:58 | XMS_ITS | Encounter Summary ---
Author Organization [facility] Address [address] [place] [address] Care Team Providers Care Hurl Shaker Name Role Phone Forest Wood MD Primary Care Provider [phone] Encounter Details Date Type Department Care Team (Latest Contact Info) Description 09/07/2024 Lab Requisition [facility] [address] [facility] [place] [address] Forest Wood MD [address] [place] [address] [address] [place], [place] Schizoaffective disorder, unspecified (CMS/HCC V24, CMS/HCC [...] PM EST) WBC 12.4(H) 4.8 - 10.8 K/[facility] LAB HEMETOLOGY METHOD 09/07/2024 4:56 PM EST [facility] RBC 4.40(L) 4.50 - 5.50 M/[facility] LAB HEMETOLOGY METHOD 09/07/2024 4:56 PM [facility] Hemoglobin 12.0(L) 13.5 - 17.5 g/dL LAB HEMETOLOGY METHOD 09/07/2024 4:56 PM [facility] Hematocrit 39.7(L) 42.0 - 54.0 % LAB HEMETOLOGY METHOD 09/07/2024 4:56 PM [facility] MCV 89.6 79.0 - 98.0 FL LAB HEMETOLOGY METHOD 09/07/2024 4:56 PM [facility] MCH 27.1 27.0 - 32.0 pcg LAB HEMETOLOGY METHOD 09/07/2024 4:56 PM [facility] MCHC 30.2(L) 32.0 - 37.0 g/dL LAB HEMETOLOGY METHOD 09/07/2024 4:56 PM [facility] RDW 13.2 11.0 - 15.0 % LAB HEMETOLOGY METHOD 09/07/2024 4:56 PM [facility] Platelets 296 130 - 400 K/mcL LAB HEMETOLOGY METHOD 09/07/2024 4:56 PM [facility] MPV 9.9 7.0 - 11.0 FL LAB HEMETOLOGY METHOD 09/07/2024 4:56 PM [facility] NRBC 0.0 <1.0 % LAB HEMETOLOGY METHOD 09/07/2024 4:56 PM [facility] NRBC Absolute 0.00 <0.10 K/mcL LAB HEMETOLOGY METHOD 09/07/2024 4:56 PM [facility] Neutrophils Relative 69.9 % LAB HEMETOLOGY METHOD 09/07/2024 4:56 PM [facility] Lymphocytes Relative 18.0 % LAB HEMETOLOGY METHOD 09/07/2024 4:56 PM [facility] Monocytes Relative 7.9 % LAB HEMETOLOGY METHOD 09/07/2024 4:56 PM EST [facility] Eosinophils Relative 3.0 % LAB HEMETOLOGY METHOD 09/07/2024 4:56 PM [facility] Basophils Relative 0.6 % LAB HEMETOLOGY METHOD 09/07/2024 4:56 PM [facility] Immature Granulocytes Relative 0.6 % LAB HEMETOLOGY METHOD 09/07/2024 4:56 PM EST [facility] Neutrophils Absolute 8.65(H) 1.50 - 7.00 K/mcL LAB HEMETOLOGY METHOD 09/07/2024 4:56 PM [facility] Lymphocytes Absolute 2.23 1.00 - 5.00 K/mcL LAB HEMETOLOGY METHOD 09/07/2024 4:56 PM [facility] Monocytes Absolute 0.98 0.20 - 1.00 K/mcL LAB HEMETOLOGY METHOD 09/07/2024 4:56 PM EST [facility] Eosinophils Absolute 0.37 0.00 - 0.50 K/mcL LAB HEMETOLOGY METHOD 09/07/2024 4:56 PM [facility] Basophils Absolute 0.08 0.00 - 0.20 K/mcL LAB HEMETOLOGY METHOD 09/07/2024 4:56 PM [facility] Immature Granulocytes Absolute 0.08(H) 0.00 - 0.03 K/mcL LAB HEMETOLOGY METHOD 09/07/2024 4:56 PM [facility] Blood Venous blood specimen / Unknown 09/07/2024 1:21 PM EST 09/07/2024 3:51 PM EST us Forest Wood MD LAB BLOOD ORDERABLES Final Resul t [facility] [address] [place] [address], documented in this encounter Visit Diagnoses Diagnosis Schizoaffective disorder, unspecified ([facility] V24, [facility] V28) documented in this encounter Care Teams Hurl Shaker Relationship Specialty Start Date End Date Forest Wood MD [address] [place] [address] [address] LOYD Banks PCP - General Internal Medicine 11/07/24 documented as of this encounter
--- OUTSIDE RECORDS SUMMARY | 2025-06-26 18:58 | XMS_ITS | Clinical Summary ---
Author Organization [address] [facility] Address [address] [place] [address] Phone Care Team Providers Care Water Server Name Role Phone Forest Wood MD Primary Care Provider [phone] Encounters Date Type Department Care Team Description 06/07/2025 Lab Requisition [facility] Lab [address] [place] [phone] Forest Wood MD Schizoaffective disorder, unspecified (CMS/[facility] V24, CMS/[facility] V28) 05/25/2025 Lab Requisition [facility] Lab [address] [place] [phone] Forest Wood MD Schizoaffective disorder, unspecified (CMS/HCC V24, CMS/[facility] V28) 05/16/2025 Lab Requisition [facility] Lab [address] [place] [phone] Forest Wood MD Altered mental status, unspecified 05/10/2025 Lab Requisition [facility] Lab [address] [place] [phone] Forest Wood MD Chronic kidney disease, stage 3b (CMS/HCC V24, CMS/HCC V28) 05/08/2025 Lab Requisition [facility] Lab [address] [place] [phone] Forest Wood MD 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 05/04/2025 Lab Requisition [facility] Lab [address] [place] [phone] Forest Wood MD Other alf (current) drug therapy; Chronic kidney disease, stage 3b (CMS/HCC V24, CMS/[facility] V28) 03/30/2025 Lab Requisition [facility] - Main Lab [address] [place] [address] Forest Wood MD Schizoaffective disorder, unspecified ([facility] V24, [facility] V28) from Last 3 Months Social History [...] Diagnosis Comments CBC WITH AUTO DIFFERENTIAL Routine 06/07/2025 7:16 AM EDT Schizoaffective disorder, unspecified (CMS/HCC V24, CMS/HCC V28) PHOSPHORUS Routine 06/07/2025 7:16 AM EDT Schizoaffective disorder, unspecified (CMS/HCC V24, CMS/HCC V28) CBC AND DIFFERENTIAL Routine 06/07/2025 7:16 AM EDT Schizoaffective disorder, unspecified (CMS/HCC V24, CMS/HCC V28) VITAMIN D 25 HYDROXY Routine 05/25/2025 7:04 AM EDT Schizoaffective disorder, unspecified (CMS/HCC V24, CMS/HCC V28) URINALYSIS WITH REFLEX MICROSCOPIC Routine 05/16/2025 12:00 AM EDT Altered mental status, unspecified URINALYSIS WITH REFLEX MICROSCOPIC Routine 05/16/2025 12:00 AM EDT Altered mental status, unspecified CBC WITH AUTO DIFFERENTIAL Routine 05/08/2025 6:47 [...] PANEL Routine 05/04/2025 6:35 AM EDT 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 Chronic kidney disease, stage 3b (CMS/HCC V24, CMS/HCC V28) CBC WITH AUTO DIFFERENTIAL Routine 03/30/2025 6:33 AM EDT Schizoaffective disorder, unspecified (CMS/HCC V24, CMS/HCC V28) CBC AND DIFFERENTIAL Routine 03/30/2025 6:33 AM EDT Schizoaffective disorder, unspecified (CMS/HCC V24, CMS/HCC V28) COMPLETE BLOOD COUNT Routine 03/30/2025 6:33 AM EDT Schizoaffective disorder, unspecified (CMS/HCC V24, CMS/HCC V28) LIPID PANEL WITH REFLEX TO DIRECT LDL Routine 03/02/2025 6:45 AM EDT Hyperlipidemia, unspecified Secondary hyperparathyroidism of renal origin (CMS/HCC V24) Encounter for other specified special examinations Age-related osteoporosis without current pathological fracture from Last 3 Months or Most Recently Relevant to Health Maintenance Results * (ABNORMAL) CBC auto differential (06/07/2025 7:16 AM EDT) Only the most recent of3 resultswithin the time period is included. WBC 13.5(H) 4.8 - 10.8 K/mcL LAB HEMETOLOGY METHOD 06/07/2025 8:02 AM EDT [facility] RBC 4.50 4.50 - 5.50 M/mcL LAB HEMETOLOGY METHOD 06/07/2025 8:02 AM EDT [facility] Hemoglobin 12.2(L) 13.5 - 17.5 g/dL LAB HEMETOLOGY METHOD 06/07/2025 8:02 AM [facility] Hematocrit 40.9(L) 42.0 - 54.0 % LAB HEMETOLOGY METHOD 06/07/2025 8:02 AM [facility] MCV 90.1 79.0 - 98.0 FL LAB HEMETOLOGY METHOD 06/07/2025 8:02 AM [facility] MCH 26.9(L) 27.0 - 32.0 pcg LAB HEMETOLOGY METHOD 06/07/2025 8:02 AM [facility] MCHC 29.8(L) 32.0 - 37.0 g/dL LAB HEMETOLOGY METHOD 06/07/2025 8:02 AM [facility] RDW 13.9 11.0 - 15.0 % LAB HEMETOLOGY METHOD 06/07/2025 8:02 AM [facility] Platelets 270 130 - 400 K/mcL LAB HEMETOLOGY METHOD 06/07/2025 8:02 AM [facility] MPV 9.4 7.0 - 11.0 FL LAB HEMETOLOGY METHOD 06/07/2025 8:02 AM [facility] NRBC 0.0 <1.0 % LAB HEMETOLOGY METHOD 06/07/2025 8:02 AM [facility] NRBC Absolute 0.00 <0.10 K/mcL LAB HEMETOLOGY METHOD 06/07/2025 8:02 AM [facility] Neutrophils Relative 63.9 % LAB HEMETOLOGY METHOD 06/07/2025 8:02 AM [facility] Lymphocytes Relative 24.3 % LAB HEMETOLOGY METHOD 06/07/2025 8:02 AM [facility] Monocytes Relative 7.2 % LAB HEMETOLOGY METHOD 06/07/2025 8:02 AM EDT [facility] Eosinophils Relative 3.0 % LAB HEMETOLOGY METHOD 06/07/2025 8:02 AM [facility] Basophils Relative 0.7 % LAB [facility]EM[facility]OLOGY [facility] Immature Granulocytes Relative 0.9 % LAB HEMETOLOGY METHOD 06/07/2025 8:02 AM EDT [facility] Neutrophils Absolute 8.60(H) 1.50 - 7.00 K/mcL LAB HEMETOLOGY METHOD 06/07/2025 8:[facility] Lymphocytes Absolute 3.27 1.00 - 5.00 K/mcL LAB HEMETOLOGY METHOD 06/07/2025 8:02 [facility] Monocytes Absolute 0.97 0.20 - 1.00 K/mcL LAB HEMETOLOGY METHOD 06/07/2025 8:02 AM [facility] Eosinophils Absolute 0.40 0.00 - 0.50 K/mcL LAB HEMETOLOGY METHOD 06/07/2025 8:02 AM [facility] Basophils Absolute 0.10 0.00 - 0.20 K/mcL LAB HEMETOLOGY METHOD 06/07/2025 8:02 AM [facility] Immature Granulocytes Absolute 0.12(H) 0.00 - 0.03 K/mcL LAB HEMETOLOGY METHOD 06/07/2025 8:02 AM [facility] Blood Venous blood specimen / Unknown 06/07/2025 7:16 AM EDT 06/07/2025 7:48 AM EDT us Forest Wood MD LAB BLOOD ORDERABLES Final Resul t [facility] [address] [place] [address], [place] [phone] * Phosphorus (06/07/2025 7:16 AM EDT) [facility] Phosphorus 3.7 2.5 - 4.5 mg/dL LAB CHEMISTRY METHOD 06/07/2025 9:12 AM EDT [facility] Blood Venous blood specimen / Unknown 06/07/2025 7:16 AM EDT 06/07/2025 7:48 AM EDT us Forest Wood MD LAB BLOOD ORDERABLES Final Resul t Performing Organization Address [facility] Co de Phone Number [facility] [address] [place] [address], * Vitamin D 25 hydroxy (05/25/2025 7:04 AM EDT) Only the most recent of2 resultswithin the time period is included. [facility] Vit D, 25-Hydroxy 49.8 30.0 - 80.0 ng/mL LAB CHEMISTRY METHOD 05/25/2025 8:57 AM EDT [facility] Blood Venous blood specimen / Unknown 05/25/2025 7:04 AM EDT 05/25/2025 8:00 AM EDT us Forest Wood MD LAB BLOOD ORDERABLES Final Resul t Performing Organization Address [facility]/ZIP Co de Phone Number [facility] [address] [place] [address], [place] [phone] * (ABNORMAL) Urinalysis with reflex microscopic (05/16/2025 12:00 AM EDT) [facility] Specific [place] Urine 1.012 1.003 - 1.030 LAB URINALYSIS - AUTOMATED METHOD 05/16/2025 7:44 PM EDT [facility] pH, Urine 6.0 5.0 - 8.0 pH LAB URINALYSIS - AUTOMATED METHOD 05/16/2025 7:44 PM [facility] Leukocytes, Urine Negative Negative LAB URINALYSIS - AUTOMATED METHOD 05/16/2025 7:44 PM [facility] Nitrite, Urine Negative Negative [...] - AUTOMATED METHOD 05/16/2025 7:44 PM EDT [facility] Urine Urine specimen obtained by clean catch procedure / Unknown 05/16/2025 05/16/2025 6:55 PM EDT us Forest Wood MD LAB URINE ORDERABLES Final Resul t Performing Organization Address [facility]/ZIP Co de Phone Number [facility] [address] [place] [address], [place] [phone] * (ABNORMAL) Parathyroid hormone intact (05/08/2025 6:47 AM EDT) PTH 104.3(H) 18.5 - 88.0 pcg/mL LAB CHEMISTRY METHOD 05/08/2025 10:33 AM EDT [facility] Blood Venous blood specimen / Unknown 05/08/2025 6:47 AM EDT 05/08/2025 7:35 AM EDT us Forest Wood MD LAB BLOOD ORDERABLES Final Resul t Performing Organization Address [facility] de Phone Number [facility] [address] [place] [address], [place] [phone] * Albumin (05/08/2025 6:47 AM EDT) Albumin 3.4 3.2 - 5.0 g/dL LAB CHEMISTRY METHOD 05/08/2025 9:39 AM EDT [facility] Blood Venous blood specimen / Unknown 05/08/2025 6:47 AM EDT 05/08/2025 7:35 AM EDT us Forest Wood MD LAB BLOOD ORDERABLES Final Resul t Performing Organization Address [facility]/ZIP Co de Phone Number [facility] [address] [place] [address], [place] [phone] * (ABNORMAL) Renal function panel (05/08/2025 6:47 [...] 15.6 LAB CHEMISTRY METHOD 05/08/2025 9:39 AM [facility] Albumin 3.4 3.2 - 5.0 g/dL LAB CHEMISTRY METHOD 05/08/2025 9:39 AM [facility] Calcium 9.4 8.5 - 10.5 mg/dL LAB CHEMISTRY METHOD 05/08/2025 9:39 AM [facility] Phosphorus 4.9(H) 2.5 - 4.5 mg/dL LAB CHEMISTRY METHOD 05/08/2025 9:39 AM [facility] Blood Venous blood specimen / Unknown 05/08/2025 6:47 AM EDT 05/08/2025 7:35 AM EDT us Forest Wood MD LAB BLOOD ORDERABLES Final Resul t [facility] [address] [place] [address], [place] [phone] * (ABNORMAL) Comprehensive metabolic panel (05/04/2025 6:35 [...] Final Resul t [facility] [address] [place] [address], * (ABNORMAL) Complete blood count (03/30/2025 6:33 AM EDT) WBC 14.6(H) 4.8 - 10.8 K/[facility] LAB HEMETOLOGY METHOD 03/30/2025 7:24 AM [facility] RBC 4.30(L) 4.50 - 5.50 M/mcL LAB HEMETOLOGY METHOD 03/30/2025 7:24 AM [facility] Hemoglobin 11.5(L) 13.5 - 17.5 g/dL LAB HEMETOLOGY METHOD 03/30/2025 7:24 AM [facility] Hematocrit 37.8(L) 42.0 - 54.0 % LAB HEMETOLOGY METHOD 03/30/2025 7:24 AM [facility] MCV 88.7 79.0 - 98.0 FL LAB HEMETOLOGY METHOD 03/30/2025 7:24 AM [facility] MCH 27.0 27.0 - 32.0 pcg LAB HEMETOLOGY METHOD 03/30/2025 7:24 AM [facility] MCHC 30.4(L) 32.0 - 37.0 g/dL LAB HEMETOLOGY METHOD 03/30/2025 7:24 AM [facility] RDW 14.5 11.0 - 15.0 % LAB HEMETOLOGY METHOD 03/30/2025 7:24 AM [facility] Platelets 261 130 - 400 K/mcL LAB HEMETOLOGY METHOD 03/30/2025 7:24 AM [facility] MPV 9.9 7.0 - 11.0 FL LAB HEMETOLOGY METHOD 03/30/2025 7:24 AM [facility] NRBC 0.0 <1.0 % LAB HEMETOLOGY METHOD 03/30/2025 7:24 AM [facility] NRBC Absolute 0.00 <0.10 K/mcL LAB HEMETOLOGY METHOD 03/30/2025 7:24 AM [facility] Blood Venous blood specimen / Unknown 03/30/2025 6:33 AM EDT 03/30/2025 7:11 AM EDT us Forest Wood MD LAB BLOOD ORDERABLES Final Resul t [facility] [address] [place] [address], [place] [phone] * (ABNORMAL) Lipid panel with reflex to direct LDL (03/02/2025 6:45 AM EDT) Cholesterol 152 0 - 200 mg/dL LAB CHEMISTRY METHOD 03/02/2025 8:39 AM EDT [facility] Triglycerides 196(H) 0 - 150 mg/dL LAB CHEMISTRY METHOD 03/02/2025 8:39 AM EDT [facility] HDL 40 >=40 mg/dL LAB CHEMISTRY METHOD 03/02/2025 8:39 AM EDT [facility] LDL Calculated 73 0 - 100 mg/dL LAB CHEMISTRY METHOD 03/02/2025 8:39 AM EDT [facility] VLDL Cholesterol Yonathan 39.2 mg/dL LAB CHEMISTRY METHOD 03/02/2025 8:39 AM EDT [facility] Non HDL Chol. (LDL+VLDL) 112 <145 mg/dL LAB CHEMISTRY METHOD 03/02/2025 8:39 AM EDT [facility] Chol/HDL Ratio 3.8 0.0 - 4.4 LAB CHEMISTRY METHOD 03/02/2025 8:39 AM T [facility] Blood Venous blood specimen / Unknown 03/02/2025 6:45 AM EDT 03/02/2025 7:53 AM EDT us Forest Wood MD LAB BLOOD ORDERABLES Final Resul t [facility] [address] [place] [address], [place] [phone] from Last 3 Months or Most Recently Relevant to Health Maintenance Insurance MEDICARE [place]ICA[place] - [place] Care Teams Water Server Relationship Specialty Start Date End Date Forest Wood MD [address] [place] [address] [address] Banks PCP - General Internal Medicine 11/07/24
--- OUTSIDE RECORDS SUMMARY | 2025-06-26 18:58 | XMS_ITS | Encounter Summary ---
Author Organization [employer] Address [address] [place] [address] Care Team Providers Care Pressing Machine Operator Name Role Phone Forest Wood MD Primary Care Provider Encounter Details Date Type Department Care Team (Latest Contact Info) Description 03/02/2025 Lab Requisition [facility] - Main Lab [address] [facility] [place] [address] Forest Wood MD [address] [place] [address] [address] LOYD Banks Hyperlipidemia, unspecified; Secondary [...] Hyperlipidemia, unspecified Secondary hyperparathyroidism of renal origin ([facility] [place]24) Encounter for other specified special examinations Age-related osteoporosis without current pathological fracture PHOSPHORUS Routine 03/02/2025 6:45 AM EDT Hyperlipidemia, unspecified Secondary hyperparathyroidism of renal origin ([facility] V24) Encounter for other specified special examinations Age-related osteoporosis without current pathological fracture PARATHYROID HORMONE INTACT Routine 03/02/2025 6:45 AM EDT Hyperlipidemia, unspecified Secondary hyperparathyroidism of renal origin ([facility] V24) Encounter for other specified special examinations Age-related osteoporosis without current pathological fracture documented in this encounter Results * Lavender tube (03/02/2025 6:45 AM EDT) Pathologist [facility] Extra Tube Hold for add-ons. 03/02/2025 9:01 AM EDT [facility] Comment:Auto resulted. Blood Venous blood specimen / Unknown 03/02/2025 6:45 AM EDT 03/02/2025 7:53 AM EDT us Forest Wood MD LAB BLOOD ORDERABLES Final Resul t [facility] [address] [place] [address], * (ABNORMAL) CBC auto differential (03/02/2025 6:45 AM EDT) Pathologist [facility] WBC 17.0(H) 4.8 - 10.8 K/[facility] LAB HEMETOLOGY METHOD 03/02/2025 8:18 AM EDT [facility] RBC 4.40(L) 4.50 - 5.50 M/[facility] LAB HEMETOLOGY METHOD 03/02/2025 8:18 AM EDT [facility] Hemoglobin 11.6(L) 13.5 - 17.5 g/dL LAB HEMETOLOGY METHOD 03/02/2025 8:18 AM [facility] Hematocrit 38.7(L) 42.0 - 54.0 % LAB HEMETOLOGY METHOD 03/02/2025 8:18 AM [facility] MCV 88.8 79.0 - 98.0 FL LAB HEMETOLOGY METHOD 03/02/2025 8:18 AM [facility] MCH 26.6(L) 27.0 - 32.0 pcg LAB HEMETOLOGY METHOD 03/02/2025 8:18 AM [facility] MCHC 30.0(L) 32.0 - 37.0 g/dL LAB HEMETOLOGY METHOD 03/02/2025 8:18 AM [facility] RDW 14.0 11.0 - 15.0 % LAB HEMETOLOGY METHOD 03/02/2025 8:18 AM [facility] Platelets 276 130 - 400 K/mcL LAB HEMETOLOGY METHOD 03/02/2025 8:18 AM [facility] MPV 10.1 7.0 - 11.0 FL LAB HEMETOLOGY METHOD 03/02/2025 8:18 AM [facility] NRBC 0.0 <1.0 % LAB HEMETOLOGY METHOD 03/02/2025 8:18 AM [facility] NRBC Absolute 0.00 <0.10 K/mcL LAB HEMETOLOGY METHOD 03/02/2025 8:18 AM [facility] Neutrophils Relative 72.8 % LAB HEMETOLOGY METHOD 03/02/2025 8:18 AM [facility] Lymphocytes Relative 19.1 % LAB HEMETOLOGY METHOD 03/02/2025 8:18 AM [facility] Monocytes Relative 5.0 % LAB HEMETOLOGY METHOD 03/02/2025 8:18 AM [facility] Eosinophils Relative 1.7 % LAB HEMETOLOGY METHOD 03/02/2025 8:18 AM EDT [facility] Basophils Relative 0.5 % LAB HEMETOLOGY METHOD 03/02/2025 8:18 AM EDT [facility] Immature Granulocytes Relative 0.9 % LAB HEMETOLOGY METHOD 03/02/2025 8:18 AM EDT [facility] Neutrophils Absolute 12.38(H) 1.50 - 7.00 K/mcL LAB HEMETOLOGY METHOD 03/02/2025 8:18 AM EDT [facility] Lymphocytes Absolute 3.24 1.00 - 5.00 K/mcL LAB HEMETOLOGY METHOD 03/02/2025 8:18 AM EDT [facility] Monocytes Absolute 0.85 0.20 - 1.00 K/mcL LAB HEMETOLOGY METHOD 03/02/2025 8:18 AM EDT [facility] Eosinophils Absolute 0.29 0.00 - 0.50 K/mcL LAB HEMETOLOGY METHOD 03/02/2025 8:18 AM EDT [facility] Basophils Absolute 0.08 0.00 - 0.20 K/mcL LAB HEMETOLOGY METHOD 03/02/2025 8:18 AM EDT [facility] Immature Granulocytes Absolute 0.15(H) 0.00 - 0.03 K/mcL LAB HEMETOLOGY METHOD 03/02/2025 8:18 AM EDT [facility] Blood Venous blood specimen / Unknown 03/02/2025 6:45 AM EDT 03/02/2025 7:53 AM EDT us Forest Wood MD LAB BLOOD ORDERABLES Final Resul t [facility] [address] [place] [address], * Phosphorus (03/02/2025 6:45 AM EDT) [facility] Phosphorus 4.4 2.5 - 4.5 mg/dL LAB CHEMISTRY METHOD 03/02/2025 8:39 AM EDT [facility] Blood Venous blood specimen / Unknown 03/02/2025 6:45 AM EDT 03/02/2025 7:53 AM EDT us Forest Wood MD LAB BLOOD ORDERABLES Final Resul t Performing Organization Address [facility]/ZIP Co de Phone Number [facility] [address] [place] [address], [place] [phone] * Parathyroid hormone intact (03/02/2025 6:45 AM EDT) [facility] PTH 77.3 18.5 - 88.0 pcg/mL LAB CHEMISTRY METHOD 03/02/2025 10:52 AM EDT [facility] Blood Venous blood specimen / Unknown 03/02/2025 6:45 AM EDT 03/02/2025 7:53 AM EDT us Forest Wood MD LAB BLOOD ORDERABLES Final Resul t Performing Organization Address [facility] Co de Phone Number [facility] [address] [place] [address], [place] [phone] * (ABNORMAL) Lipid panel with reflex to direct LDL (03/02/2025 6:45 AM EDT) [facility] Cholesterol 152 0 - 200 mg/dL LAB CHEMISTRY METHOD 03/02/2025 8:39 AM EDT [facility] Triglycerides 196(H) 0 - 150 mg/dL LAB CHEMISTRY METHOD 03/02/2025 8:39 AM EDT [facility] HDL 40 >=40 mg/dL LAB CHEMISTRY METHOD 03/02/2025 8:39 AM EDT [facility] LDL Calculated 73 0 - 100 mg/dL LAB CHEMISTRY METHOD 03/02/2025 8:39 AM EDT [facility] VLDL Cholesterol Yonathan 39.2 mg/dL LAB CHEMISTRY METHOD 03/02/2025 8:39 AM EDT [facility] Non HDL Chol. (LDL+VLDL) 112 <145 mg/dL LAB CHEMISTRY METHOD 03/02/2025 8:39 AM EDT [facility] Chol/HDL Ratio 3.8 0.0 - 4.4 LAB CHEMISTRY METHOD 03/02/2025 8:39 AM EDT [facility] Blood Venous blood specimen / Unknown 03/02/2025 6:45 AM EDT 03/02/2025 7:53 AM EDT us Forest Wood MD LAB BLOOD ORDERABLES Final Resul t [facility] [address] [place] [address], documented in this encounter Visit Diagnoses Diagnosis Hyperlipidemia, unspecified Secondary hyperparathyroidism of renal origin (CMS/HCC V24) Secondary hyperparathyroidism (of renal origin) Encounter for other specified special examinations Age-related osteoporosis without current pathological fracture documented in this encounter Care Teams Pressing Machine Operator Relationship Specialty Start Date End Date Forest Wood MD [address] [place] [address] Dr [address] [place] PCP - General Internal Medicine 11/07/24 documented as of this encounter
--- OUTSIDE RECORDS SUMMARY | 2025-06-26 18:58 | XMS_ITS | Encounter Summary ---
Author Organization [facility] [facility] Address [address] [place] [address] Care Team Providers Care Hardware Assembler Name Role Phone Forest Wood MD Primary Care Provider [phone] Encounter Details Date Type Department Care Team (Late st Contact Info) Description 10/06/2024 Lab Requisition [facility] - Main Lab [address] [facility] [place] [address] Forest Wood MD [address] [place] [address] [address] [place] Encounter for screening for malignant neoplasm of [...] K/mcL LAB HEMETOLOGY METHOD 10/06/2024 7:23 AM [facility] RBC 4.40(L) 4.50 - 5.50 M/mcL LAB HEMETOLOGY METHOD 10/06/2024 7:23 AM [facility] Hemoglobin 11.9(L) 13.5 - 17.5 g/dL LAB HEMETOLOGY METHOD 10/06/2024 7:23 AM [facility] Hematocrit 39.2(L) 42.0 - 54.0 % LAB HEMETOLOGY METHOD 10/06/2024 7:23 AM [facility] MCV 89.1 79.0 - 98.0 FL LAB HEMETOLOGY METHOD 10/06/2024 7:23 AM [facility] MCH 27.0 27.0 - 32.0 pcg LAB HEMETOLOGY METHOD 10/06/2024 7:23 AM [facility] MCHC 30.4(L) 32.0 - 37.0 g/dL LAB HEMETOLOGY METHOD 10/06/2024 7:23 AM [facility] RDW 13.2 11.0 - 15.0 % LAB HEMETOLOGY METHOD 10/06/2024 7:23 AM [facility] Platelets 239 130 - 400 K/mcL LAB HEMETOLOGY METHOD 10/06/2024 7:23 AM [facility] MPV 9.8 7.0 - 11.0 FL LAB HEMETOLOGY METHOD 10/06/2024 7:23 AM [facility] NRBC 0.0 <1.0 % LAB HEMETOLOGY METHOD 10/06/2024 7:23 AM [facility] NRBC Absolute 0.00 <0.10 K/mcL LAB HEMETOLOGY METHOD 10/06/2024 7:23 AM [facility] Neutrophils Relative 63.5 % LAB HEMETOLOGY METHOD 10/06/2024 7:23 AM [facility] Lymphocytes Relative 23.0 % LAB HEMETOLOGY METHOD 10/06/2024 7:23 AM [facility] Monocytes Relative 7.3 % LAB HEMETOLOGY METHOD 10/06/2024 7:23 AM [facility] Eosinophils Relative 4.7 % LAB HEMETOLOGY METHOD 10/06/2024 7:23 AM [facility] Basophils Relative 0.7 % LAB HEMETOLOGY METHOD 10/06/2024 7:23 AM [facility] Immature Granulocytes Relative 0.8 % LAB HEMETOLOGY METHOD 10/06/2024 7:23 AM [facility] Neutrophils Absolute 8.05(H) 1.50 - 7.00 K/mcL LAB HEMETOLOGY METHOD 10/06/2024 7:23 AM [facility] Lymphocytes Absolute 2.91 1.00 - 5.00 K/mcL LAB HEMETOLOGY METHOD 10/06/2024 7:23 AM [facility] Monocytes Absolute 0.93 0.20 - 1.00 K/mcL LAB HEMETOLOGY METHOD 10/06/2024 7:23 AM [facility] Eosinophils Absolute 0.59(H) 0.00 - 0.50 K/mcL LAB HEMETOLOGY METHOD 10/06/2024 7:23 AM EST [facility] Basophils Absolute 0.09 0.00 - 0.20 K/[facility] LAB HEMETOLOGY METHOD 10/06/2024 7:23 AM EST [facility] Immature Granulocytes Absolute 0.10(H) 0.00 - 0.03 K/[facility] LAB HEMETOLOGY METHOD 10/06/2024 7:23 AM EST [facility] Blood Venous blood specimen / Unknown 10/06/2024 6:31 AM EST 10/06/2024 7:17 AM EST us Forest Wood MD LAB BLOOD ORDERABLES Final Resul t Performing Organization Address [facility] de Phone Number [facility] [address] [place] [address], * Prostate specific antigen diagnostic (10/06/2024 6:31 AM EST) PSA 0.25 0.00 - 4.00 ng/mL LAB CHEMISTRY METHOD 10/06/2024 9:46 AM EST [facility] Blood Venous blood specimen / Unknown 10/06/2024 6:31 AM EST 10/06/2024 7:17 AM EST Narrative [facility] - 10/06/2024 9:46 AM EST The Siemens Advia Centaur Chemiluminescent Immunoassay is used. Results obtained with different assay methods or kits cannot be used interchangeably. Results cannot be interpreted as absolute evidence of the presence or absence of malignant disease. us Forest Wood MD LAB BLOOD ORDERABLES Final Resul t Performing Organization Address [facility]/ZIP Co de Phone Number [facility] [address] [place] [address], [place] [phone] * Phosphorus (10/06/2024 6:31 AM EST) Phosphorus 3.8 2.5 - 4.5 mg/dL LAB CHEMISTRY METHOD 10/06/2024 8:08 AM [facility] Blood Venous blood specimen / Unknown 10/06/2024 6:31 AM EST 10/06/2024 7:17 AM EST us Forest Wood MD LAB BLOOD ORDERABLES Final Resul t [facility] [address] [place] [address], [place] [phone] * (ABNORMAL) Comprehensive metabolic panel (10/06/2024 6:31 AM EST) Sodium 141 133 - 145 mmol/L LAB CHEMISTRY METHOD 10/06/2024 9:46 AM [facility] Potassium 5.0 3.5 - 5.5 mmol/L LAB CHEMISTRY METHOD 10/06/2024 9:46 AM [facility] Chloride 110 96 - 110 mmol/L LAB CHEMISTRY METHOD 10/06/2024 9:46 AM [facility] CO2 27 21 - 32 mmol/L LAB CHEMISTRY METHOD 10/06/2024 9:46 AM [facility] Anion Gap 4 3 - 11 LAB CHEMISTRY METHOD 10/06/2024 9:46 AM [facility] Glucose 90 70 - 100 mg/dL LAB CHEMISTRY METHOD 10/06/2024 9:46 AM [facility] BUN 62(H) 5 - 25 mg/dL LAB CHEMISTRY METHOD 10/06/2024 9:46 AM [facility] Comment:Results verified by repeat testing Creatinine 2.88(H) 0.70 - 1.30 mg/dL LAB CHEMISTRY METHOD 10/06/2024 9:46 AM [facility] eGFR 23(L) >=60 mL/min/1. 73m2 LAB CHEMISTRY METHOD 10/06/2024 9:46 AM [facility] Comment:Calculation based on the Chronic Kidney Disease Epidemiology Collaboration (CKD-EPI) equation refit without adjustment for race. BUN/Creatinine Ratio 21.5 LAB CHEMISTRY METHOD 10/06/2024 9:46 AM [facility] Calcium 9.4 8.5 - 10.5 mg/dL LAB CHEMISTRY METHOD 10/06/2024 9:46 AM [facility] AST (SGOT) 30 10 - 42 unit/L LAB CHEMISTRY METHOD 10/06/2024 9:46 AM [facility] ALT (SGPT) 41 10 - 60 unit/L LAB CHEMISTRY METHOD 10/06/2024 9:46 AM [facility] Alkaline Phosphatase 74 42 - 121 unit/L LAB CHEMISTRY METHOD 10/06/2024 9:46 AM [facility] Total Protein 7.1 6.0 - 8.0 g/dL LAB CHEMISTRY METHOD 10/06/2024 9:46 AM [facility] Albumin 3.3 3.2 - 5.0 g/dL LAB CHEMISTRY METHOD 10/06/2024 9:46 AM [facility] Total Bilirubin 0.3 0.0 - 1.4 mg/dL LAB CHEMISTRY METHOD 10/06/2024 9:46 AM [facility] Blood Venous blood specimen / Unknown 10/06/2024 6:31 AM EST 10/06/2024 7:17 AM EST us Forest Wood MD LAB BLOOD ORDERABLES Final Resul t [facility] [address] [place] [address], documented in this encounter Visit Diagnoses Diagnosis Encounter for screening for malignant neoplasm of prostate Hypotension, unspecified Chronic kidney disease, unspecified Schizoaffective disorder, unspecified (CMS/HCC V24, CMS/HCC V28) documented in this encounter Care Teams Hardware Assembler Relationship Specialty Start Date End Date Forest Wood MD [address] [place] [address] Dr [address] LOYD Banks PCP - General Internal Medicine 11/07/24 documented as of this encounter
--- OUTSIDE RECORDS SUMMARY | 2025-06-26 18:58 | XMS_ITS | Encounter Summary ---
Author Organization [facility] Address [address] [place] [address] Phone Care Team Providers Care Heavy Machinery Assembler Name Role Phone Forest Wood Primary Care Provider [phone] Encounter Details Date Type Department Care Team (Late Contact Info) Description 02/26/2021 Orders Only [facility] [address] [place] [address] Provider, MD Christian Social History [...] [facility] [address] [facility] [address] [place] [address] Terrance Downing MD [address] [facility] [address] [place] [address] documented as of this encounter Procedures Procedure Name Priority Date/Time Associated Diagnosis Comments EXT RESULT ENTRY Routine 02/26/2021 documented in this encounter Results * EXT RESULT ENTRY (02/26/2021) us Historical Provider LAB BLOOD ORDERABLES Natalia l Result documented in this encounter Visit Diagnoses Not on filedocumented in this encounter Care Teams Heavy Machinery Assembler Relationship Specialty Start Date End Date Forest Wood DO [address] [place] [address] [address] [place] [address] PCP - General 09/30/20 documented as of this encounter
--- OUTSIDE RECORDS SUMMARY | 2025-06-26 18:58 | XMS_ITS | Encounter Summary ---
Author Organization [facility] Address [address] [place] [address] Care Team Providers Care Extrusion Supervisor Name Role Phone Forest Wood MD Primary Care Provider [phone] Encounter Details Date Type Department Care Team (Latest Contact Info) Description 07/26/2024 Lab Requisition [facility] - Main Lab 299 [facility] [place] [address] Forest Wood MD [address] [place] [address] Dr [address] LOYD Banks Schizoaffective disorder, [...] CBC auto differential (07/26/2024 5:30 AM EST) [facility] WBC 15.1(H) 4.8 - 10.8 K/mcL LAB HEMETOLOGY METHOD 07/26/2024 6:57 AM [facility] RBC 4.30(L) 4.50 - 5.50 M/mcL LAB HEMETOLOGY METHOD 07/26/2024 6:57 AM [facility] Hemoglobin 11.6(L) 13.5 - 17.5 g/dL LAB HEMETOLOGY METHOD 07/26/2024 6:57 AM [facility] Hematocrit 38.5(L) 42.0 - 54.0 % LAB HEMETOLOGY METHOD 07/26/2024 6:57 AM [facility] MCV 90.4 79.0 - 98.0 FL LAB HEMETOLOGY METHOD 07/26/2024 6:57 AM [facility] MCH 27.2 27.0 - 32.0 pcg LAB HEMETOLOGY METHOD 07/26/2024 6:57 AM [facility] MCHC 30.1(L) 32.0 - 37.0 g/dL LAB HEMETOLOGY METHOD 07/26/2024 6:57 AM [facility] RDW 13.6 11.0 - 15.0 % LAB HEMETOLOGY METHOD 07/26/2024 6:57 AM [facility] Platelets 238 130 - 400 K/mcL LAB HEMETOLOGY METHOD 07/26/2024 6:57 AM [facility] MPV 10.1 7.0 - 11.0 FL LAB HEMETOLOGY METHOD 07/26/2024 6:57 AM [facility] NRBC 0.0 <1.0 % LAB HEMETOLOGY METHOD 07/26/2024 6:57 AM [facility] NRBC Absolute 0.00 <0.10 K/mcL LAB HEMETOLOGY METHOD 07/26/2024 6:57 AM [facility] Neutrophils Relative 63.8 % LAB HEMETOLOGY METHOD 07/26/2024 6:57 AM [facility] Lymphocytes Relative 22.1 % LAB HEMETOLOGY METHOD 07/26/2024 6:57 AM [facility] Monocytes Relative 8.2 % LAB HEMETOLOGY METHOD 07/26/2024 6:57 AM [facility] Eosinophils Relative 4.1 % LAB HEMETOLOGY METHOD 07/26/2024 6:57 AM [facility] Basophils Relative 0.9 % LAB HEMETOLOGY METHOD 07/26/2024 6:57 AM [facility] Immature Granulocytes Relative 0.9 % LAB HEMETOLOGY METHOD 07/26/2024 6:57 AM [facility] Neutrophils Absolute 9.63(H) 1.50 - 7.00 K/mcL LAB HEMETOLOGY METHOD 07/26/2024 6:57 AM [facility] Lymphocytes Absolute 3.33 1.00 - 5.00 K/mcL LAB HEMETOLOGY METHOD 07/26/2024 6:57 AM [facility] Monocytes Absolute 1.23(H) 0.20 - 1.00 K/mcL LAB HEMETOLOGY METHOD 07/26/2024 6:57 AM [facility] Eosinophils Absolute 0.62(H) 0.00 - 0.50 K/mcL LAB HEMETOLOGY METHOD 07/26/2024 6:57 AM [facility] Basophils Absolute 0.13 0.00 - 0.20 K/mcL LAB HEMETOLOGY METHOD 07/26/2024 6:57 AM EST [facility] Immature Granulocytes Absolute 0.13(H) 0.00 - 0.03 K/mcL LAB HEMETOLOGY METHOD 07/26/2024 6:57 AM EST [facility] Blood Venous blood specimen / Unknown 07/26/2024 5:30 AM EST 07/26/2024 6:40 AM EST us Forest Wood MD LAB BLOOD ORDERABLES Final Resul t Performing Organization Address City/[facility]/ZIP Co de Phone Number [facility] [address] [place] [address], [place] [phone] * Phosphorus (07/26/2024 5:30 AM EST) Phosphorus 4.5 2.5 - 4.5 mg/dL LAB CHEMISTRY METHOD 07/26/2024 7:36 AM EST [facility] Blood Venous blood specimen / Unknown 07/26/2024 5:30 AM EST 07/26/2024 6:40 AM EST us Forest Wood MD LAB BLOOD ORDERABLES Final Resul t Performing Organization Address [facility] Co de Phone Number [facility] [address] [place] [address], [place] [phone] * Parathyroid hormone intact (07/26/2024 5:30 AM EST) PTH 78.5 18.5 - 88.0 pcg/mL LAB CHEMISTRY METHOD 07/26/2024 9:37 AM EST [facility] Blood Venous blood specimen / Unknown 07/26/2024 5:30 AM EST 07/26/2024 6:40 AM EST us Forest Wood MD LAB BLOOD ORDERABLES Final Resul t Performing Organization Address City/[facility]/ZIP Co de Phone Number [facility] [address] [place] [address], [place] [phone] * (ABNORMAL) Lipid panel with reflex to direct LDL (07/26/2024 5:30 AM EST) Cholesterol 157 0 - 200 mg/dL LAB CHEMISTRY METHOD 07/26/2024 7:36 AM [facility] Triglycerides 174(H) 0 - 150 mg/dL LAB CHEMISTRY METHOD 07/26/2024 7:36 AM [facility] HDL 49 >=40 mg/dL LAB CHEMISTRY METHOD 07/26/2024 7:36 AM [facility] LDL Calculated 73 0 - 100 mg/dL LAB CHEMISTRY METHOD 07/26/2024 7:36 AM [facility] VLDL Cholesterol Yonathan 34.8 mg/dL LAB CHEMISTRY METHOD 07/26/2024 7:36 AM [facility] Non HDL Chol. (LDL+VLDL) 108 <145 mg/dL LAB CHEMISTRY METHOD 07/26/2024 7:36 AM [facility] Chol/HDL Ratio 3.2 0.0 - 4.4 LAB CHEMISTRY METHOD 07/26/2024 7:36 AM [facility] Blood Venous blood specimen / Unknown 07/26/2024 5:30 AM EST 07/26/2024 6:40 AM EST Forest Wood MD LAB BLOOD ORDERABLES Final Resul t [facility] [address] [place] [address], [place] [phone] * (ABNORMAL) Comprehensive metabolic panel (07/26/2024 5:30 AM EST) Pathologist [facility] Sodium 141 133 - 145 mmol/L LAB CHEMISTRY METHOD 07/26/2024 8:40 AM [facility] Potassium 4.7 3.5 - 5.5 mmol/L LAB CHEMISTRY METHOD 07/26/2024 8:40 AM [facility] Chloride 108 96 - 110 mmol/L LAB CHEMISTRY METHOD 07/26/2024 8:40 AM [facility] CO2 26 21 - 32 mmol/L LAB CHEMISTRY METHOD 07/26/2024 8:40 AM [facility] Anion Gap 7 3 - 11 LAB CHEMISTRY METHOD 07/26/2024 8:40 AM [facility] Glucose 75 70 - 100 mg/dL LAB CHEMISTRY METHOD 07/26/2024 8:40 AM [facility] BUN 50(H) 5 - 25 mg/dL LAB CHEMISTRY METHOD 07/26/2024 8:40 AM [facility] Creatinine 2.85(H) 0.70 - 1.30 mg/dL LAB CHEMISTRY METHOD 07/26/2024 8:40 AM [facility] eGFR 23(L) >=60 mL/min/1. 73m2 LAB CHEMISTRY METHOD 07/26/2024 8:40 AM [facility] Comment:Calculation based on the Chronic Kidney Disease Epidemiology Collaboration (CKD-EPI) equation refit without adjustment for race. BUN/Creatinine Ratio 17.5 LAB CHEMISTRY METHOD 07/26/2024 8:40 AM [facility] Calcium 10.0 8.5 - 10.5 mg/dL LAB CHEMISTRY METHOD 07/26/2024 8:40 AM [facility] AST (SGOT) 16 10 - 42 unit/L LAB CHEMISTRY METHOD 07/26/2024 8:40 AM [facility] ALT (SGPT) 29 10 - 60 unit/L LAB CHEMISTRY METHOD 07/26/2024 8:40 AM [facility] Alkaline Phosphatase 70 42 - 121 unit/L LAB CHEMISTRY METHOD 07/26/2024 8:40 AM [facility] Total Protein 6.9 6.0 - 8.0 g/dL LAB CHEMISTRY METHOD 07/26/2024 8:40 AM [facility] Albumin 3.3 3.2 - 5.0 g/dL LAB CHEMISTRY METHOD 07/26/2024 8:40 AM EST [facility] Total Bilirubin 0.3 0.0 - 1.4 mg/dL LAB CHEMISTRY METHOD 07/26/2024 8:40 AM EST [facility] Blood Venous blood specimen / Unknown 07/26/2024 5:30 AM EST 07/26/2024 6:40 AM EST us Forest Wood MD LAB BLOOD ORDERABLES Final Resul t [facility] [address] [place] [address], documented in this encounter Visit Diagnoses Diagnosis Schizoaffective disorder, unspecified (CMS/HCC V24, CMS/HCC V28) documented in this encounter Care Teams Extrusion Supervisor Relationship Specialty Start Date End Date Forest Wood MD [address] [place] [address] Dr [address] [place], [place] PCP - General Internal Medicine 11/07/24 documented as of this encounter
--- OUTSIDE RECORDS SUMMARY | 2025-06-26 18:58 | XMS_ITS | Encounter Summary ---
Author Organization [facility] Address [address] [place] [address] Care Team Providers Care Program Manager Environmental Planning Name Role Phone Forest Wood MD Primary Care Provider [phone] Encounter Details Date Type Department Care Team (Latest Contact Info) Description 05/25/2025 Lab Requisition [facility] - Main Lab [address] [place] [address] Forest Wood MD [address] [place] [address] [address] [place] Schizoaffective disorder, unspecified ([facility] V24, [facility] V28) Social History Tobacco Use Types Packs/Day [...] AM EDT Schizoaffective disorder, unspecified (CMS/HCC V24, CMS/[facility] V28) documented in this encounter Results * Vitamin D 25 hydroxy (05/25/2025 7:04 AM EDT) Vit D, 25-Hydroxy 49.8 30.0 - 80.0 ng/mL LAB CHEMISTRY METHOD 05/25/2025 8:57 AM EDT [facility] ([facility]) [facility] Blood Venous blood specimen / Unknown 05/25/2025 7:04 AM EDT 05/25/2025 8:00 AM EDT us Forest Wood MD LAB BLOOD ORDERABLES Final Resul t [facility] [place] ([facility]) H[facility] LAB [address] [place] [address], documented in this encounter Visit Diagnoses Diagnosis Schizoaffective disorder, unspecified (CMS/HCC V24, CMS/HCC V28) documented in this encounter Care Teams Program Manager Environmental Planning Relationship Specialty Start Date End Date Forest Wood MD [address] [facility] [address] [place], [place] PCP - General Internal Medicine 11/07/24 documented as of this encounter
--- OUTSIDE RECORDS SUMMARY | 2025-06-26 18:58 | XMS_ITS | Encounter Summary ---
Author Organization [employer] Address [address] [place] [address] Care Team Providers Care Title I Coordinator Name Role Phone Forest Wood MD Primary Care Provider [phone] Encounter Details Date Type Department Care Team (Latest Contact Info) Description 03/30/2025 Lab Requisition [facility] - Main Lab [address] [facility] [place] [address] Forest Wood MD [address] [place] [address] [address] LOYD Banks Schizoaffective disorder, unspecified [...] AM EDT) WBC 14.6(H) 4.8 - 10.8 K/[facility]/30/2025 2:21 PM [facility] RBC 4.30(L) 4.50 - 5.50 M/mcL LAB HEMETOLOGY METHOD 03/30/2025 2:21 PM [facility] Hemoglobin 11.5(L) 13.5 - 17.5 g/dL LAB HEMETOLOGY METHOD 03/30/2025 2:21 PM [facility] LAB Hematocrit 37.8(L) 42.0 - 54.0 % LAB HEMETOLOGY METHOD 03/30/2025 2:21 PM [facility] LAB MCV 88.7 79.0 - 98.0 FL LAB HEMETOLOGY METHOD 03/30/2025 2:21 PM [facility] LAB MCH 27.0 27.0 - 32.0 pcg LAB HEMETOLOGY METHOD 03/30/2025 2:21 PM [facility] LAB MCHC 30.4(L) 32.0 - 37.0 g/dL LAB HEMETOLOGY METHOD 03/30/2025 2:21 PM [facility] RDW 14.5 11.0 - 15.0 % LAB HEMETOLOGY METHOD 03/30/2025 2:21 PM [facility] Platelets 261 130 - 400 K/mcL LAB HEMETOLOGY METHOD 03/30/2025 2:21 PM [facility] MPV 9.9 7.0 - 11.0 FL LAB HEMETOLOGY METHOD 03/30/2025 2:21 PM [facility] NRBC 0.0 <1.0 % LAB HEMETOLOGY METHOD 03/30/2025 2:21 PM [facility] NRBC Absolute 0.00 <0.10 K/mcL LAB HEMETOLOGY METHOD 03/30/2025 2:21 PM [facility] Neutrophils Relative 71.4 % LAB HEMETOLOGY METHOD 03/30/2025 2:21 PM [facility] Lymphocytes Relative 18.9 % LAB HEMETOLOGY METHOD 03/30/2025 2:21 PM [facility] Monocytes Relative 6.5 % LAB HEMETOLOGY METHOD 03/30/2025 2:21 PM [facility] Eosinophils Relative 2.0 % LAB HEMETOLOGY METHOD 03/30/2025 2:21 PM [facility] Basophils Relative 0.5 % LAB HEMETOLOGY METHOD 03/30/2025 2:21 PM [facility] Immature Granulocytes Relative 0.7 % LAB HEMETOLOGY METHOD 03/30/2025 2:21 PM [facility] Neutrophils Absolute 10.46(H) 1.50 - 7.00 K/mcL LAB HEMETOLOGY METHOD 03/30/2025 2:21 PM [facility] Lymphocytes Absolute 2.77 1.00 - 5.00 K/mcL LAB HEMETOLOGY METHOD 03/30/2025 2:21 PM [facility] Monocytes Absolute 0.96 0.20 - 1.00 K/mcL LAB HEMETOLOGY METHOD 03/30/2025 2:21 PM [facility] Eosinophils Absolute 0.29 0.00 - 0.50 K/mcL LAB HEMETOLOGY METHOD 03/30/2025 2:21 PM [facility] Basophils Absolute 0.08 0.00 - 0.20 K/mcL LAB HEMETOLOGY METHOD 03/30/2025 2:21 PM [facility] Immature Granulocytes Absolute 0.11(H) 0.00 - 0.03 K/mcL LAB HEMETOLOGY METHOD 03/30/2025 2:21 PM [facility] Blood Venous blood specimen / Unknown 03/30/2025 6:33 AM EDT 03/30/2025 7:11 AM EDT us Forest Wood MD LAB BLOOD ORDERABLES Final Resul t [facility] [address] [place] [address], [place] [phone] * (ABNORMAL) Complete blood count (03/30/2025 6:33 AM EDT) WBC 14.6(H) 4.8 - 10.8 K/mcL LAB HEMETOLOGY METHOD 03/30/2025 7:24 AM EDT [facility] RBC 4.30(L) 4.50 - 5.50 M/mcL LAB HEMETOLOGY METHOD 03/30/2025 7:24 AM EDT [facility] Hemoglobin 11.5(L) 13.5 - 17.5 g/dL LAB HEMETOLOGY METHOD 03/30/2025 7:24 AM EDT [facility] Hematocrit 37.8(L) 42.0 - 54.0 % LAB HEMETOLOGY METHOD 03/30/2025 7:24 AM EDT [facility] MCV 88.7 79.0 - 98.0 FL LAB HEMETOLOGY METHOD 03/30/2025 7:24 AM EDT [facility] MCH 27.0 27.0 - 32.0 pcg LAB HEMETOLOGY METHOD 03/30/2025 7:24 AM EDT [facility] MCHC 30.4(L) 32.0 - 37.0 g/dL LAB HEMETOLOGY METHOD 03/30/2025 7:24 AM EDT [facility] RDW 14.5 11.0 - 15.0 % LAB HEMETOLOGY METHOD 03/30/2025 7:24 AM EDT [facility] Platelets 261 130 - 400 K/mcL LAB HEMETOLOGY METHOD 03/30/2025 7:24 AM EDT [facility] MPV 9.9 7.0 - 11.0 FL LAB HEMETOLOGY METHOD 03/30/2025 7:24 AM EDT [facility] NRBC 0.0 <1.0 % LAB HEMETOLOGY METHOD 03/30/2025 7:24 AM EDT [facility] NRBC Absolute 0.00 <0.10 K/mcL LAB HEMETOLOGY METHOD 03/30/2025 7:24 AM EDT [facility] Blood Venous blood specimen / Unknown 03/30/2025 6:33 AM EDT 03/30/2025 7:11 AM EDT us Forest Wood MD LAB BLOOD ORDERABLES Final Resul t [facility] [address] [place] [address], documented in this encounter Visit Diagnoses Diagnosis Schizoaffective disorder, unspecified (CMS/HCC V24, CMS/HCC V28) documented in this encounter Care Teams Title I Coordinator Relationship Specialty Start Date End Date Forest Wood MD [address] [place] [address] Dr Kojo [address] [place] [address] PCP - General Internal Medicine 11/07/24 documented as of this encounter
--- OUTSIDE RECORDS SUMMARY | 2025-06-26 18:58 | XMS_ITS | Encounter Summary ---
Author Organization [facility] Address [address] [place] [address] Care Team Providers Care Youth Specialist Name Role Phone Forest Wood MD Primary Care Provider [phone] Encounter Details Date Type Department Care Team (Late st Contact Info) Description 11/08/[address] [facility] Lab [address] [facility] [place] [address] Forest Wood MD [address] [place] [address] [address] LOYD Banks Other vice president corporate communications (current) drug therapy Social History Tobacco Use [...] DIFFERENTIAL Routine 11/08/2024 6:31 AM EST Other vice president corporate communications (current) drug therapy CBC AND DIFFERENTIAL Routine 11/08/2024 6:31 AM EST Other longterm (current) drug therapy documented in this encounter Results * (ABNORMAL) CBC auto differential (11/08/2024 6:31 AM EST) WBC 11.2(H) 4.8 - 10.8 K/mcL LAB HEMETOLOGY METHOD 11/08/2024 7:43 AM EST [facility] RBC 4.20(L) 4.50 - 5.50 M/mcL LAB HEMETOLOGY METHOD 11/08/2024 7:43 AM EST [facility] Hemoglobin 11.5(L) 13.5 - 17.5 g/dL LAB HEMETOLOGY METHOD 11/08/2024 7:[address] [facility] Hematocrit 37.7(L) 42.0 - 54.0 % LAB HEMETOLOGY METHOD 11/08/2024 7:[address] [facility] MCV 89.1 79.0 - 98.0 FL LAB HEMETOLOGY METHOD 11/08/2024 7:[address] [facility] MCH 27.2 27.0 - 32.0 pcg LAB HEMETOLOGY METHOD 11/08/2024 7:[address] [facility] MCHC 30.5(L) 32.0 - 37.0 g/dL LAB HEMETOLOGY METHOD 11/08/2024 7:[address] [facility] RDW 13.3 11.0 - 15.0 % LAB HEMETOLOGY METHOD 11/08/2024 7:[address] [facility] Platelets 238 130 - 400 K/mcL LAB HEMETOLOGY METHOD 11/08/2024 7:[address] [facility] MPV 9.9 7.0 - 11.0 FL LAB HEMETOLOGY METHOD 11/08/2024 7:[address] [facility] NRBC 0.0 <1.0 % LAB HEMETOLOGY METHOD 11/08/2024 7:[address] [facility] NRBC Absolute 0.00 <0.10 K/mcL LAB HEMETOLOGY METHOD 11/08/2024 7:[address] [facility] Neutrophils Relative 66.3 % LAB HEMETOLOGY METHOD 11/08/2024 7:[address] [facility] Lymphocytes Relative 18.2 % LAB HEMETOLOGY METHOD 11/08/2024 7:[address] [facility] Monocytes Relative 8.5 % LAB HEMETOLOGY METHOD 11/08/2024 7:[address] [facility] Eosinophils Relative 5.7 % LAB HEMETOLOGY METHOD 11/08/2024 7:43 AM EST [facility] Basophils Relative 0.8 % LAB HEMETOLOGY METHOD 11/08/2024 7:[address] [facility] Immature Granulocytes Relative 0.5 % LAB HEMETOLOGY METHOD 11/08/2024 7:[address] [facility] Neutrophils Absolute 7.39(H) 1.50 - 7.00 K/mcL LAB HEMETOLOGY METHOD 11/08/2024 7:[address] [facility] Lymphocytes Absolute 2.03 1.00 - 5.00 K/mcL LAB HEMETOLOGY METHOD 11/08/2024 7:[address] [facility] Monocytes Absolute 0.95 0.20 - 1.00 K/mcL LAB HEMETOLOGY METHOD 11/08/2024 7:43 AM EST [facility] Eosinophils Absolute 0.64(H) 0.00 - 0.50 K/mcL LAB HEMETOLOGY METHOD 11/08/2024 7:[address] [facility] Basophils Absolute 0.09 0.00 - 0.20 K/mcL LAB HEMETOLOGY METHOD 11/08/2024 7:[address] [facility] Immature Granulocytes Absolute 0.06(H) 0.00 - 0.03 K/mcL LAB HEMETOLOGY METHOD 11/08/2024 7:[address] [facility] Blood Venous blood specimen / Unknown 11/08/2024 6:31 AM EST 11/08/2024 7:18 AM EST us Forest Wood MD LAB BLOOD ORDERABLES Final Resul t [facility] [address] [place] [address], documented in this encounter Visit Diagnoses Diagnosis Other longterm (current) drug therapy documented in this encounter Care Teams Youth Specialist Relationship Specialty Start Date End Date Forest Wood MD [address] [place] [address] Dr [address] LOYD Banks PCP - General Internal Medicine 11/07/24 documented as of this encounter
--- OUTSIDE RECORDS SUMMARY | 2025-06-26 18:58 | XMS_ITS | Encounter Summary ---
Author Organization [facility] Address [address] [place] [address] Care Team Providers Care Outside Contractor Sales Name Role Phone Forest Wood MD Primary Care Provider [phone] Encounter Details Date Type Department Care Team (Late st Contact Info) Description 05/10/2025 Lab Requisition [facility] Lab [address] [facility] [place] [address] Forest Wood MD [address] [place] [address] [address] [place] Chronic kidney disease, stage 3b (CMS/HCC V24, [...] V28) documented in this encounter Care Teams Outside Contractor Sales Relationship Specialty Start Date End Date Forest Wood MD [address] [place] [address] Dr [address] [place] PCP - General Internal Medicine 11/07/24 documented as of this encounter
--- OUTSIDE RECORDS SUMMARY | 2025-06-26 18:58 | XMS_ITS | Clinical Summary ---
Author Organization [facility] Address [address] [place] [address] Care Team Providers Care Director Personal Name Role Phone Unavailable Primary Care Provider [...]
--- OUTSIDE RECORDS SUMMARY | 2025-06-26 18:58 | XMS_ITS | Encounter Summary ---
Author Organization [facility] Address [address] [place] [address] Care Team Providers Care Behavioral Therapy Coordinator Name Role Phone Forest Wood MD Primary Care Provider [phone] Encounter Details Date Type Department Care Team (Latest Contact Info) Description 02/02/2025 Lab Requisition [facility] Lab [address] [place] [address] Forest Wood MD [address] [place] [address] [address] [place], [place] Schizoaffective disorder, unspecified (CMS/HCC V24, CMS/HCC V28) [...] AM EDT) WBC 14.8(H) 4.8 - 10.8 K/[facility] LAB HEMETOLOGY METHOD 02/02/2025 8:28 AM EDT [facility] LAB RBC 4.50 4.50 - 5.50 M/[facility] LAB HEMETOLOGY METHOD 02/02/2025 8:28 AM [facility] LAB Hemoglobin 12.0(L) 13.5 - 17.5 g/dL LAB HEMETOLOGY METHOD 02/02/2025 8:28 AM [facility] Hematocrit 39.9(L) 42.0 - 54.0 % LAB HEMETOLOGY METHOD 02/02/2025 8:28 AM [facility] LAB MCV 89.5 79.0 - 98.0 FL LAB HEMETOLOGY METHOD 02/02/2025 8:28 AM [facility] LAB MCH 26.9(L) 27.0 - 32.0 pcg LAB HEMETOLOGY METHOD 02/02/2025 8:28 AM [facility] LAB MCHC 30.1(L) 32.0 - 37.0 g/dL LAB HEMETOLOGY METHOD 02/02/2025 8:28 AM [facility] LAB RDW 13.7 11.0 - 15.0 % LAB HEMETOLOGY METHOD 02/02/2025 8:28 AM [facility] LAB Platelets 278 130 - 400 K/mcL LAB HEMETOLOGY METHOD 02/02/2025 8:28 AM [facility] LAB MPV 10.1 7.0 - 11.0 FL LAB HEMETOLOGY METHOD 02/02/2025 8:28 AM [facility] NRBC 0.0 <1.0 % LAB HEMETOLOGY METHOD 02/02/2025 8:28 AM [facility] LAB NRBC Absolute 0.00 <0.10 K/mcL LAB HEMETOLOGY METHOD 02/02/2025 8:28 AM [facility] Blood Venous blood specimen / Unknown 02/02/2025 6:35 AM EDT 02/02/2025 8:11 AM EDT Forest Wood MD LAB BLOOD ORDERABLES Final Resul t [facility] [address] [place] [address], * (ABNORMAL) Comprehensive metabolic panel (02/02/2025 6:35 AM EDT) Sodium 143 133 - 145 mmol/L LAB CHEMISTRY METHOD 02/02/2025 9:04 AM [facility] Potassium 4.7 3.5 - 5.5 mmol/L LAB CHEMISTRY METHOD 02/02/2025 9:04 AM [facility] Chloride 109 96 - 110 mmol/L LAB CHEMISTRY METHOD 02/02/2025 9:04 AM [facility] CO2 26 21 - 32 mmol/L LAB CHEMISTRY METHOD 02/02/2025 9:04 AM [facility] Anion Gap 8 3 - 11 LAB CHEMISTRY METHOD 02/02/2025 9:04 AM [facility] Glucose 76 70 - 100 mg/dL LAB CHEMISTRY METHOD 02/02/2025 9:04 AM [facility] BUN 41(H) 5 - 25 mg/dL LAB CHEMISTRY METHOD 02/02/2025 9:04 AM [facility] Creatinine 2.51(H) 0.70 - 1.30 mg/dL LAB CHEMISTRY METHOD 02/02/2025 9:04 AM [facility] eGFR 27(L) >=60 mL/min/1. 73m2 LAB CHEMISTRY METHOD 02/02/2025 9:04 AM [facility] Comment:Calculation based on the Chronic Kidney Disease Epidemiology Collaboration (CKD-EPI) equation refit without adjustment for race. BUN/Creatinine Ratio 16.3 LAB CHEMISTRY METHOD 02/02/2025 9:04 AM [facility] Calcium 9.2 8.5 - 10.5 mg/dL LAB CHEMISTRY METHOD 02/02/2025 9:04 AM EDT [facility] AST (SGOT) 29 10 - 42 unit/L LAB CHEMISTRY METHOD 02/02/2025 9:04 AM T [facility] ALT (SGPT) 39 10 - 60 unit/L LAB CHEMISTRY METHOD 02/02/2025 9:04 AM T [facility] Alkaline Phosphatase 98 42 - 121 unit/L LAB CHEMISTRY METHOD 02/02/2025 9:04 AM T [facility] Total Protein 7.0 6.0 - 8.0 g/dL LAB CHEMISTRY METHOD 02/02/2025 9:04 AM [facility] Albumin 3.2 3.2 - 5.0 g/dL LAB CHEMISTRY METHOD 02/02/2025 9:04 AM [facility] Total Bilirubin 0.3 0.0 - 1.4 mg/dL LAB CHEMISTRY METHOD 02/02/2025 9:04 AM T [facility] Blood Venous blood specimen / Unknown 02/02/2025 6:35 AM EDT 02/02/2025 8:11 AM EDT us Forest Wood MD LAB BLOOD ORDERABLES Final Resul t [facility] [address] [place] [address], documented in this encounter Visit Diagnoses Diagnosis Schizoaffective disorder, unspecified (CMS/HCC V24, CMS/HCC V28) documented in this encounter Care Teams Behavioral Therapy Coordinator Relationship Specialty Start Date End Date Forest Wood MD [address] [facility] [address] [facility] [place] PCP - General Internal Medicine 11/07/24 documented as of this encounter
--- OUTSIDE RECORDS SUMMARY | 2025-06-26 18:58 | XMS_ITS | Clinical Summary ---
Author Organization [facility] Address [address] [address] Phone Care Team Providers Care Paper Mill Manager Name Role Phone NinaForest Primary Care Provider [phone] Allergies Active Allergy Reactions Criticality Noted Date [...] topically Active traMADol (ULTRAM) 50 MG tablet 5 Active Active Problems Problem Noted Date Diagnosed Date Obese class II 07/12/2023 07/12/2023 Orthostatic hypotension 02/24/2021 Acute nontraumatic kidney injury 02/21/2021 Chronic kidney disease stage 3 02/21/2021 Proteinuria 02/21/2021 Encounters Date Type Department Care Team Description 05/07/2025 10:00 AM EDT Office Visit [facility] [address] [place] [phone] Terrance Downing MD Chronic kidney disease, stage [...] Office Visit [facility] [address] [place] [phone] Terrance Downing MD [address] [phone] Health Maintenance Due Date Last Done Comments Pneumococcal Vaccine: 50+ Ye ars (1 of 2 - PCV) 1975 Colorectal Cancer Screening: Annual FOBT 2005 Colorectal Cancer Screening: Colonoscopy 2005 Colorectal Cancer Screening: Sigmoidoscopy 2005 Influenza Vaccine (#1) 2025 Hepatitis B Vaccine Aged Out No longe r eligible based on patient's age to complete this topic Insurance Medicare [facility] Care Teams Paper Mill Manager Relationship Specialty Start Date End Date Forest Wood DO [address] [place] [address] PCP - General 09/30/20
--- OUTSIDE RECORDS SUMMARY | 2025-06-26 18:58 | XMS_ITS | Encounter Summary ---
Author Organization [employer] Address [address] [place] [address] Care Team Providers Care Jewelry Bench Molder Name Role Phone Forest Wood MD Primary Care Provider [phone] Encounter Details Date Type Department Care Team (Late st Contact Info) Description 05/04/[address] [facility] Lab [address] [facility] [place] [address] Forest Wood MD [address] [place] [address] [address] LOYD Banks Other intermediate teacher (current) drug therapy; Chronic kidney disease, stage [...] PANEL Routine 05/04/2025 6:35 AM EDT Other intermediate teacher (current) drug therapy Chronic kidney disease, stage 3b (CMS/HCC V24, CMS/HCC V28) documented in this encounter Results * (ABNORMAL) Comprehensive metabolic panel (05/04/2025 6:35 AM EDT) Sodium 141 133 - 145 mmol/L LAB CHEMISTRY METHOD 05/04/2025 7:49 AM EDT [facility] Potassium 4.2 3.5 - 5.5 mmol/L LAB CHEMISTRY METHOD 05/04/2025 7:49 AM EDT [facility] Chloride 109 96 - 110 mmol/L LAB CHEMISTRY METHOD 05/04/2025 7:49 AM [facility] CO2 28 21 - 32 mmol/L LAB CHEMISTRY METHOD 05/04/2025 7:49 AM [facility] Anion Gap 4 3 - 11 LAB CHEMISTRY METHOD 05/04/2025 7:49 AM [facility] Glucose 85 70 - 100 mg/dL LAB CHEMISTRY METHOD 05/04/2025 7:49 AM [facility] BUN 43(H) 5 - 25 mg/dL LAB CHEMISTRY METHOD 05/04/2025 7:49 AM [facility] Creatinine 2.87(H) 0.70 - 1.30 mg/dL LAB CHEMISTRY METHOD 05/04/2025 7:49 AM [facility] eGFR 23(L) >=60 mL/min/1. 73m2 LAB CHEMISTRY METHOD 05/04/2025 7:49 AM [facility] Comment:Calculation based on the Chronic Kidney Disease Epidemiology Collaboration (CKD-EPI) equation refit without adjustment for race. BUN/Creatinine Ratio 15.0 LAB CHEMISTRY METHOD 05/04/2025 7:49 AM [facility] Calcium 8.9 8.5 - 10.5 mg/dL LAB CHEMISTRY METHOD 05/04/2025 7:49 AM [facility] AST (SGOT) 23 10 - 42 unit/L LAB CHEMISTRY METHOD 05/04/2025 7:49 AM [facility] ALT (SGPT) 29 10 - 60 unit/L LAB CHEMISTRY METHOD 05/04/2025 7:49 AM [facility] Alkaline Phosphatase 82 42 - 121 unit/L LAB CHEMISTRY METHOD 05/04/2025 7:49 AM [facility] Total Protein 6.9 6.0 - 8.0 g/dL LAB CHEMISTRY METHOD 05/04/2025 7:49 AM [facility] Albumin 3.2 3.2 - 5.0 g/dL LAB CHEMISTRY METHOD 05/04/2025 7:49 AM EDT [facility] Total Bilirubin 0.3 0.0 - 1.4 mg/dL LAB CHEMISTRY METHOD 05/04/2025 7:49 AM EDT [facility] Blood Venous blood specimen / Unknown 05/04/2025 6:35 AM EDT 05/04/2025 7:14 AM EDT us Forest Wood MD LAB BLOOD ORDERABLES Final Resul t [facility] [address] [place] [address], documented in this encounter Visit Diagnoses Diagnosis Other long-term (current) drug therapy Chronic kidney disease, stage 3b (CMS/HCC V24, CMS/HCC V28) documented in this encounter Care Teams Jewelry Bench Molder Relationship Specialty Start Date End Date Forest Wood MD [address] [place] [address] Dr [address] [place] PCP - General Internal Medicine 11/07/24 documented as of this encounter
--- OUTSIDE RECORDS SUMMARY | 2025-06-26 18:58 | XMS_ITS | Encounter Summary ---
Author Organization [facility] Address [address] [place] [address] Care Team Providers Care Trailer Driver Name Role Phone Forest Wood MD Primary Care Provider [phone] Encounter Details Date Type Department Care Team (Late st Contact Info) Description 01/16/2025 Lab Requisition [facility] Lab [address] [facility] [place] [address] Forest Wood MD [address] [place] [address] [address] [place] Chronic kidney disease, stage 4 (severe) (CMS/HCC [...] kidney disease, stage 4 (severe) (CMS/[facility] V24, CMS/[facility] V28) FERRITIN Routine 01/16/2025 6:39 AM EDT Chronic kidney disease, stage 4 (severe) (CMS/HCC V24, CMS/[facility] V28) RENAL FUNCTION PANEL Routine 01/16/2025 6:39 AM EDT Chronic kidney disease, stage 4 (severe) (CMS/[facility] V24, CMS/[facility] V28) documented in this encounter Results * SST tube (01/16/2025 6:39 AM EDT) Pathologist [facility] Extra Tube Hold for add-ons. 01/16/2025 10:01 AM EDT [facility] Comment:Auto resulted. Blood Venous blood specimen / Unknown 01/16/2025 6:39 AM EDT 01/16/2025 8:02 AM EDT us Forest Wood MD LAB BLOOD ORDERABLES Final Resul t Performing Organization Address [facility]/ZIP Co de Phone Number [facility] [address] [place] [address], [place] [phone] * (ABNORMAL) Parathyroid hormone intact (01/16/2025 6:39 AM EDT) Pathologist [facility] PTH 101.9(H) 18.5 - 88.0 pcg/mL LAB CHEMISTRY METHOD 01/16/2025 10:56 AM EDT [facility] Blood Venous blood specimen / Unknown 01/16/2025 6:39 AM EDT 01/16/2025 8:02 AM EDT us Forest Wood MD LAB BLOOD ORDERABLES Final Resul t [facility] [address] [place] [address], [place] [phone] * Vitamin D 25 hydroxy (01/16/2025 6:39 AM EDT) Pathologist [facility] Vit D, 25-Hydroxy 51.5 30.0 - 80.0 ng/mL LAB CHEMISTRY METHOD 01/16/2025 10:55 AM EDT [facility] Blood Venous blood specimen / Unknown 01/16/2025 6:39 AM EDT 01/16/2025 8:02 AM EDT us Forest Wood MD LAB BLOOD ORDERABLES Final Resul t [facility] [address] [place] [address], [place] [phone] * (ABNORMAL) Ferritin (01/16/2025 6:39 AM EDT) [facility] Ferritin 1,249(H) 26 - 388 ng/mL LAB CHEMISTRY METHOD 01/16/2025 8:55 AM EDT [facility] Comment:Results verified by repeat testing Blood Venous blood specimen / Unknown 01/16/2025 6:39 AM EDT 01/16/2025 8:02 AM EDT us Forest Wood MD LAB BLOOD ORDERABLES Final Resul t [facility] [address] [place] [address], [place] [phone] * (ABNORMAL) Complete blood count (01/16/2025 6:39 AM EDT) [facility] WBC 13.9(H) 4.8 - 10.8 K/[facility] LAB HEMETOLOGY METHOD 01/16/2025 8:09 AM EDT [facility] RBC 4.40(L) 4.50 - 5.50 M/[facility] LAB HEMETOLOGY METHOD 01/16/2025 8:[address] [facility] Hemoglobin 12.0(L) 13.5 - 17.5 g/dL LAB HEMETOLOGY METHOD 01/16/2025 8:[address] [facility] Hematocrit 39.7(L) 42.0 - 54.0 % LAB HEMETOLOGY METHOD 01/16/2025 8:[address] [facility] MCV 89.8 79.0 - 98.0 FL LAB HEMETOLOGY METHOD 01/16/2025 8:[address] [facility] MCH 27.1 27.0 - 32.0 pcg LAB HEMETOLOGY METHOD 01/16/2025 8:[address] [facility] MCHC 30.2(L) 32.0 - 37.0 g/dL LAB HEMETOLOGY METHOD 01/16/2025 8:[address] [facility] RDW 13.6 11.0 - 15.0 % LAB HEMETOLOGY METHOD 01/16/2025 8:[address] [facility] Platelets 244 130 - 400 K/mcL LAB HEMETOLOGY METHOD 01/16/2025 8:[address] [facility] MPV 10.1 7.0 - 11.0 FL LAB HEMETOLOGY METHOD 01/16/2025 8:[address] [facility] NRBC 0.0 <1.0 % LAB HEMETOLOGY METHOD 01/16/2025 8:[address] [facility] NRBC Absolute 0.00 <0.10 K/mcL LAB HEMETOLOGY METHOD 01/16/2025 8:[address] [facility] Blood Venous blood specimen / Unknown 01/16/2025 6:39 AM EDT 01/16/2025 8:02 AM EDT Forest Wood MD LAB BLOOD ORDERABLES Final Resul t Performing Organization Address City/State/[facility] de Phone Number [facility] [address] [place] [address], [place] [phone] * Iron and TIBC (01/16/2025 6:39 AM [...] ORDERABLES Final Resul t Performing Organization Address [facility] Co de Phone Number [facility] [address] [place] [address], [place] [phone] * (ABNORMAL) Renal function panel (01/16/2025 6:39 [...] mg/dL LAB CHEMISTRY METHOD 01/16/2025 8:[address] [facility] BUN 41(H) 5 - 25 mg/dL LAB CHEMISTRY METHOD 01/16/2025 8:[address] [facility] Creatinine 2.79(H) 0.70 - 1.30 mg/dL LAB CHEMISTRY METHOD 01/16/2025 8:[address] [facility] eGFR 24(L) >=60 mL/min/1. 73m2 LAB CHEMISTRY METHOD 01/16/2025 8:[address] [facility] Comment:Calculation based on the Chronic Kidney Disease Epidemiology Collaboration (CKD-EPI) equation refit without adjustment for race. BUN/Creatinine Ratio 14.7 LAB CHEMISTRY METHOD 01/16/2025 8:[address] [facility] Albumin 3.2 3.2 - 5.0 g/dL LAB CHEMISTRY METHOD 01/16/2025 8:[address] [facility] Calcium 9.5 8.5 - 10.5 mg/dL LAB CHEMISTRY METHOD 01/16/2025 8:[address] [facility] Phosphorus 4.0 2.5 - 4.5 mg/dL LAB CHEMISTRY METHOD 01/16/2025 8:[address] [facility] Blood Venous blood specimen / Unknown 01/16/2025 6:39 AM EDT 01/16/2025 8:02 AM EDT us Forest Wood MD LAB BLOOD ORDERABLES Final Resul t [facility] [address] [place] [address], documented in this encounter Visit Diagnoses Diagnosis Chronic kidney disease, stage 4 (severe) (CMS/HCC V24, CMS/HCC V28) documented in this encounter Care Teams Trailer Driver Relationship Specialty Start Date End Date Forest Wood MD [address] [place] [address] Dr Kojo TayloryoLOYD bynum PCP - General Internal Medicine 11/07/24 documented as of this encounter
--- OUTSIDE RECORDS SUMMARY | 2025-06-26 18:58 | XMS_ITS | Encounter Summary ---
Author Organization [facility] Address [address] [place] [address] Care Team Providers Care Senior Medical Writer Name Role Phone Forest Wood MD Primary Care Provider [phone] Encounter Details Date Type Department Care Team (Late st Contact Info) Description 05/16/2025 Lab Requisition [facility] [address] [facility] [place] [address] Forest Wood MD [address] [place] [address] [address] [place], [place] Altered mental status, unspecified Social History Tobacco Use Types Packs/Day [...] 12:00 AM EDT Altered mental status, unspecified documented in this encounter Results * (ABNORMAL) Urinalysis with reflex microscopic (05/16/2025 12:00 AM EDT) Specific [place] Urine 1.012 1.003 - 1.030 LAB URINALYSIS - AUTOMATED METHOD 05/16/2025 7:[address] [facility] pH, Urine 6.0 5.0 - 8.0 pH LAB URINALYSIS - AUTOMATED METHOD 05/16/2025 7:[address] [facility] Leukocytes, Urine Negative Negative LAB URINALYSIS - AUTOMATED METHOD 05/16/2025 7:44 PM [facility] Nitrite, Urine Negative Negative LAB URINALYSIS - AUTOMATED METHOD 05/16/2025 7:44 PM [facility] Protein, Urine 100(A) <=Trace mg/dL LAB URINALYSIS - AUTOMATED METHOD 05/16/2025 7:44 PM [facility] Glucose, Urine Negative Negative mg/dL LAB URINALYSIS - AUTOMATED METHOD 05/16/2025 7:44 PM [facility] Ketones, Urine Negative Negative mg/dL LAB URINALYSIS - AUTOMATED METHOD 05/16/2025 7:44 PM [facility] Urobilinogen, Urine 1.0 0.2 - 1.0 mg/dL LAB URINALYSIS - AUTOMATED METHOD 05/16/2025 7:44 PM [facility] Bilirubin, Urine Negative Negative LAB URINALYSIS - AUTOMATED METHOD 05/16/2025 7:44 PM [facility] Blood, Urine Negative Negative LAB URINALYSIS - AUTOMATED METHOD 05/16/2025 7:44 PM [facility] RBC, Urine 0.5 0 - 4 /HPF LAB URINALYSIS - AUTOMATED METHOD 05/16/2025 7:44 PM [facility] WBC, Urine 0.2 0 - 4 /HPF LAB URINALYSIS - AUTOMATED METHOD 05/16/2025 7:44 PM [facility] Squamous Epithelial, Urine 5 0 - 60 /LPF LAB URINALYSIS - AUTOMATED METHOD 05/16/2025 7:44 PM [facility] Bacteria, Urine Negative Negative /HPF LAB URINALYSIS - AUTOMATED METHOD 05/16/2025 7:44 PM [facility] Hyaline Casts, Urine 0.0 0 - 3 /LPF LAB URINALYSIS - AUTOMATED METHOD 05/16/2025 7:44 PM [facility] Urine Urine specimen obtained by clean catch procedure / Unknown 05/16/2025 05/16/2025 6:55 PM EDT us Forest Wood MD LAB URINE ORDERABLES Final Resul t [facility] [address] [place] [address], documented in this encounter Visit Diagnoses Diagnosis Altered mental status, unspecified documented in this encounter Care Teams Senior Medical Writer Relationship Specialty Start Date End Date Forest Wood MD [address] [place] [address] [address] [place] PCP - General Internal Medicine 11/07/24 documented as of this encounter
--- OUTSIDE RECORDS SUMMARY | 2025-06-26 18:58 | XMS_ITS | Encounter Summary ---
Author Organization [employer] Address [address] [place] [address] Care Team Providers Care Substation Operator Helper Name Role Phone Forest Wood MD Primary Care Provider [phone] Encounter Details Date Type Department Care Team (Latest Contact Info) Description 08/07/2024 Lab Requisition [facility] [address] [facility] [place] [address] Forest Wood MD [address] [place] [address] [address] [place] Schizoaffective disorder, unspecified (CMS/HCC V24, CMS/HCC V28) [...] developed and the performance characteristics determined by [facility]. This confirmation testing has not been cleared or approved by the FDA. The laboratory is regulated under CLIA as qualified to perform high-complexity testing. This test is used for patient testing purposes. It should not be regarded as investigational or for research. Test performed at [facility], [address], [place] [address] Darya Moore MD, PhD - Ditto Machine Operator Blood Venous blood specimen / Unknown 08/07/2024 6:20 AM EST 08/07/2024 7:05 AM EST us Forest Wood MD LAB BLOOD ORDERABLES Final Resul t Performing Organization Address [facility] Co de Phone Number [facility] [address] [place] [address] * (ABNORMAL) Creatinine (08/07/2024 6:20 AM EST) Creatinine 2.68(H) 0.70 - 1.30 mg/dL LAB CHEMISTRY METHOD 08/07/2024 7:33 AM EST [facility] eGFR 25(L) >=60 mL/min/1. 73m2 LAB CHEMISTRY METHOD 08/07/2024 7:33 AM EST [facility] Comment:Calculation based on the Chronic Kidney Disease Epidemiology Collaboration (CKD-EPI) equation refit without adjustment for race. Blood Venous blood specimen / Unknown 08/07/2024 6:20 AM EST 08/07/2024 7:05 AM EST us Forest Wood MD LAB BLOOD ORDERABLES Final Resul t Performing Organization Address City/[facility] Co de Phone Number [facility] [address] [place] [address], [place] [phone] documented in this encounter Visit Diagnoses Diagnosis Schizoaffective disorder, unspecified (CMS/HCC V24, CMS/HCC V28) documented in this encounter Care Teams Substation Operator Helper Relationship Specialty Start Date End Date Forest Wood MD [address] [place] [address] [place] [address] PCP - General Internal Medicine 11/07/24 documented as of this encounter
--- OUTSIDE RECORDS SUMMARY | 2025-06-26 18:59 | XMS_ITS | Encounter Summary ---
Author Organization [facility] Address [address] [place] [address] Care Team Providers Care Drapery Counselor Name Role Phone Forest Wood MD Primary Care Provider [phone] Encounter Details Date Type Department Care Team (Latest Contact Info) Description 06/07/2025 Lab Requisition [facility] [address] [facility] [address] Forest Wood MD [address] [place] [address] [address] [place] Schizoaffective disorder, unspecified (CMS/HCC V24, CMS/HCC V28) [...] encounter Results * (ABNORMAL) CBC auto differential (06/07/2025 7:16 AM EDT) WBC 13.5(H) 4.8 - 10.8 K/[facility] LAB HEMETOLOGY METHOD 06/07/2025 8:02 AM [facility] RBC 4.50 4.50 - 5.50 M/mcL LAB HEMETOLOGY METHOD 06/07/2025 8:02 AM [facility] Hemoglobin 12.2(L) 13.5 - 17.5 g/dL LAB HEMETOLOGY METHOD 06/07/2025 8:02 AM [facility] Hematocrit 40.9(L) 42.0 - 54.0 % LAB HEMETOLOGY METHOD 06/07/2025 8:02 AM [facility] MCV 90.1 79.0 - 98.0 FL LAB HEMETOLOGY METHOD 06/07/2025 8:02 AM [facility] MCH 26.9(L) 27.0 - 32.0 pcg LAB HEMETOLOGY METHOD 06/07/2025 8:02 AM [facility] MCHC 29.8(L) 32.0 - 37.0 g/dL LAB HEMETOLOGY METHOD 06/07/2025 8:02 AM [facility] RDW 13.9 11.0 - 15.0 % LAB HEMETOLOGY METHOD 06/07/2025 8:02 AM [facility] Platelets 270 130 - 400 K/mcL LAB HEMETOLOGY METHOD 06/07/2025 8:02 AM [facility] MPV 9.4 7.0 - 11.0 FL LAB HEMETOLOGY METHOD 06/07/2025 8:02 AM [facility] NRBC 0.0 <1.0 % LAB HEMETOLOGY METHOD 06/07/2025 8:02 AM [facility] NRBC Absolute 0.00 <0.10 K/mcL LAB HEMETOLOGY METHOD 06/07/2025 8:02 AM [facility] Neutrophils Relative 63.9 % LAB HEMETOLOGY METHOD 06/07/2025 8:02 AM [facility] Lymphocytes Relative 24.3 % LAB HEMETOLOGY METHOD 06/07/2025 8:02 AM [facility] Monocytes Relative 7.2 % LAB HEMETOLOGY METHOD 06/07/2025 8:02 AM [facility] Eosinophils Relative 3.0 % LAB HEMETOLOGY METHOD 06/07/2025 8:02 AM [facility] Basophils Relative 0.7 % LAB HEMETOLOGY METHOD 06/07/2025 8:02 AM [facility] Immature Granulocytes Relative 0.9 % LAB HEMETOLOGY METHOD 06/07/2025 8:02 AM [facility] Neutrophils Absolute 8.60(H) 1.50 - 7.00 K/mcL LAB HEMETOLOGY METHOD 06/07/2025 8:02 AM [facility] Lymphocytes Absolute 3.27 1.00 - 5.00 K/mcL LAB HEMETOLOGY METHOD 06/07/2025 8:02 AM [facility] Monocytes Absolute 0.97 0.20 - 1.00 K/mcL LAB HEMETOLOGY METHOD 06/07/2025 8:02 AM [facility] Eosinophils Absolute 0.40 0.00 - 0.50 K/mcL LAB HEMETOLOGY METHOD 06/07/2025 8:02 AM [facility] Basophils Absolute 0.10 0.00 - 0.20 K/mcL LAB HEMETOLOGY METHOD 06/07/2025 8:02 AM [facility] Immature Granulocytes Absolute 0.12(H) 0.00 - 0.03 K/mcL LAB HEMETOLOGY METHOD 06/07/2025 8:02 AM [facility] Blood Venous blood specimen / Unknown 06/07/2025 7:16 AM EDT 06/07/2025 7:48 AM EDT us Forest Wood MD LAB BLOOD ORDERABLES Final Resul t Performing Organization Address City/[facility]/ZIP Co de Phone Number [facility] [address] [place] [address], [place] [phone] * Phosphorus (06/07/2025 7:16 AM EDT) Phosphorus 3.7 2.5 - 4.5 mg/dL LAB CHEMISTRY METHOD 06/07/2025 9:12 AM EDT [facility] Blood Venous blood specimen / Unknown 06/07/2025 7:16 AM EDT 06/07/2025 7:48 AM EDT us Forest Wood MD LAB BLOOD ORDERABLES Final Resul t Performing Organization Address [facility]/ZIP Co de Phone Number [facility] [address] [place] [address], [place] [phone] documented in this encounter Visit Diagnoses Diagnosis Schizoaffective disorder, unspecified (CMS/HCC V24, CMS/HCC V28) documented in this encounter Care Teams Drapery Counselor Relationship Specialty Start Date End Date Forest Wood MD [address] [place] [address] [place] [address] [place] PCP - General Internal Medicine 11/07/24 documented as of this encounter
[2025-06-26 19:15] VITALS: O2SAT 96
--- NOTE | 2025-06-26 19:53 | PHA.MEDREC ---
Addendum entered by Bartolome Sun RPh 06/26/25 19:58: med rec reviewed Original Note: Pharmacy Consult ? Medication Reconciliation Pharmacy has completed the medication reconciliation. Utilized list from [facility] to confirm med list.
[2025-06-26 20:17] LABS: NT Pro B Type Natriuretic Pept 186.5 pg/mL (<300)
[2025-06-26 21:21] LABS: VBG HCO3 14 mmol/L (22-26); VBG O2 % Saturation 100.0 %
[2025-06-26 21:22] LABS: Venous Blood Gas Refer to POC result
[2025-06-26 22:28] LABS: MANUAL DIFF FLAG NO
[2025-06-26 22:29] LABS: Hematocrit 34.6 % (42.0-52.0); Hemoglobin 10.7 g/dl (14.0-18.0); Imm Gran Abs Auto 0.02 X10*3/uL (0.00-0.03); Imm Gran Pct Auto 0.3 % (0.0-0.4); Lymphocytes Absolute Auto 1.1 X10*3/uL (1.2-4.9); Mean Corpuscular HGB Conc 30.9 g/dl (31.0-36.0); Mean Corpuscular Hemoglobin 27.5 pg (27.0-33.0); Mean Corpuscular Volume 88.9 fL (80.0-98.0); NRBC Abs Auto 0.000 X10*3/uL (0.0-0.012); NRBC Pct Auto 0.0 /100WBC (0.0-0.2); Platelet Count 213 X10*3/uL (160-400); Red Blood Count 3.89 X10*6/uL (4.60-5.80); White Blood Count 6.8 X10*3/uL (4.8-10.8)
[2025-06-26 22:48] VITALS: BP 122/67; PULSE 89; RESP 20; TEMP 36.6; O2SAT 94
[2025-06-26 22:50] LABS: Alanine Aminotransferase 19 U/L (0-40); Albumin Level 3.2 g/dL (3.5-5.0); Alkaline Phosphatase 54 U/L (39-117); Anion Gap 16 (12-20); Aspartate Amino Transferase 24 U/L (5-37); Blood Urea Nitrogen 78 mg/dL (9-16); Calcium 7.7 mg/dL (8.4-10.2); Carbon Dioxide 17 mmol/L (22-29); Chloride 120 mmol/L (96-108); Creatinine Clr Calc Pharmacy 14.7; Estimated Glomerular Filt Rate 11; Potassium 4.5 mmol/L (3.3-5.1); Sodium 148 mmol/L (135-145); Total Protein 6.0 g/dL (6.5-8.0)
--- NOTE | 2025-06-26 23:21 | P.HPHOSP_ITS ---
History of Present Illness Date of Service: 06/26/25 Attending physician on admission: Cassius Carpio Chief Complaint: lethargy, cough Patient is a 69-year-old male with a past medical history significant for CKD 3, history SBO, schizophrenia, chronic anemia, HLD, TBI, neurogenic bladder and class 3 obesity, who presented to the ED from Care [facility] due to cough, shortness of breath, malaise, lethargy and congestion for the past 2 days. The patient was initially answering questions appropriately however during this interview the patient was too lethargic to respond. He denied fever or chest pain. When EMS arrived the patient's O2 saturation was in the mid 80s and blood pressure in the low 100s. The patient was reporting that he felt very weak but denied nausea, vomiting or diarrhea. Review of Systems 2 Review of Systems: Yes Unobtainable due to mental condition [facility] Medical History Partial small bowel obstruction Schizoaffective disorder Chronic kidney disease, stage 3 Anemia Hyperlipidemia Orthostatic hypotension GERD (gastroesophageal reflux disease) Attention deficit hyperactivity disorder Neurogenic bladder Hematuria TBI (traumatic brain injury) Surgical History History of surgery Social History Household Members: Other Housing: Custodial Do you presently have visiting nurse or other home services: Yes Alcohol intake: never Patient Tobacco Use Status: Former Tobacco user Tobacco use type: Cigarette and Cigar Advance Directives: Yes Advance Directives on File: Yes Advance Directives Date on File: 07/10/21 service: No Current occupational status: disabled Meds Allergies Allergy/AdvReac Type Severity Reaction Status Date / Time NSAIDS (Non-Steroidal Allergy Unknown UNKNOWN Verified 06/26/25 16:33 Anti-Inflamma (NSAIDS (NON-STEROIDAL ANTI-INFLAMMA) Active Medications: Current Medications Acetaminophen (Acetaminophen 325 Mg Tablet) 650 mg PO Q6H PRN PRN Reason: Pain, Mild 1-3,fever,headache Al Hydroxide/Mg Hydroxide (Magnesium Hydrox/Alum Hydrox 30 Ml Oral.Susp) 30 ml PO Q4H PRN PRN Reason: GI Upset Albuterol Sulfate (Albuterol Sulfate 90 Mcg 8 Gm Inhaler) 2 puff INHALE Q4H PRN PRN Reason: Wheezing Amlodipine Besylate (Amlodipine Besylate 10 Mg Tablet) 10 mg PO DAILY [facility]; Protocol Ascorbic Acid (Ascorbic Acid 500 Mg Tablet) 500 mg PO DAILY [facility] Bisacodyl (Bisacodyl 10 Mg Supp.Rect) 10 mg NM DAILY PRN PRN Reason: Constipation Calcium Carbonate (Calcium Carbonate 750 Mg Tab.Chew) 750 mg PO Q4H PRN PRN Reason: Heartburn Ceftriaxone Sodium (Ceftriaxone Sodium 2 Gm Vial) 2 gm IVPUSH Q24H [facility] Last Admin: 06/26/25 22:09 Dose: 2 gm Clozapine (Clozapine 100 Mg Tablet) 100 mg PO DAILY [facility] Clozapine (Clozapine 100 Mg Tablet) 200 mg PO BEDTIME [facility] Docusate Sodium (Docusate Sodium 100 Mg Capsule) 100 mg PO BID [facility] Fludrocortisone Acetate (Fludrocortisone Acetate 0.1 Mg Tablet) 0.2 mg PO DAILY [facility] Gabapentin (Gabapentin 100 Mg Capsule) 200 mg PO TID [facility] Guaifenesin (Guaifenesin 200 Mg/10 Ml 10 Ml Liquid) ml PO Q4H PRN PRN Reason: Cough Heparin Sodium (Porcine) (Heparin Sodium,Porcine 5,000 Unit/Ml Vial) 5,000 unit SUBCUT Q8H [facility] Hydrocortisone (Hydrocortisone 10 Mg Tablet) 10 mg PO TID [facility] Doxycycline Hyclate 100 mg/ (Sodium Chloride) 250 mls @ 166.67 mls/hr IV BID [facility] Last Admin: 06/26/25 22:13 Dose: 166.67 mls/hr Dextrose/Sodium Chloride (D5ns) 1,000 mls @ 75 mls/hr IVCONT .[id number] [facility] Loratadine (Loratadine 10 Mg Tablet) 10 mg PO DAILY PRN PRN Reason: Allergy Symptoms Magnesium Hydroxide (Milk Of Magnesia 30 Ml Oral.Susp) 30 ml PO DAILY PRN PRN Reason: Constipation Melatonin (Melatonin 3 Mg Tablet) 6 mg PO BEDTIME PRN PRN Reason: Insomnia Multivitamins/Vitamin C (Multivitamin Tablet) 1 tab PO DAILY [facility] Non-Formulary Medication (Alfuzosin) 10 mg PO DAILY [facility] Non-Formulary Medication (Carboxymethylcellulose Sodium [Artificial Tears (Cmc)]) 1 drop EYE-BOTH BID [facility] Non-Formulary Medication (Clomipramine) 100 mg PO BEDTIME [facility] Non-Formulary Medication (Fenofibrate Nanocrystallized) 145 mg PO DAILY [facility] Non-Formulary Medication (Ferrous Sulfate) 325 mg PO DAILY [facility] Omeprazole (Omeprazole 40 Mg Capsule.Dr) 40 mg PO BID@0630,1630 [facility] Senna (Sennosides 8.6 Mg Tablet) 8.6 mg PO BID [facility] Senna (Sennosides 8.6 Mg Tablet) 8.6 mg PO DAILY PRN PRN Reason: Constipation Sodium Chloride (0.9 % Sodium Chloride Flush 3 Ml Syringe) 3 ml IVFLUSH QSHIFT BRUCE Tramadol HCl (Tramadol Hcl 50 Mg Tablet) 50 mg PO Q6H PRN PRN Reason: Pain, Moderate(Pain Scale 4-6) Home Medications ?Medication ?Instructions ?Recorded ?Confirmed ?Last Taken ?Type albuterol sulfate 90 mcg/actuation 2 puff inhalation Q 4H PRN Wheezing 07/10/21 06/26/25 Unknown History aerosol inhaler ascorbic acid (vitamin C) 500 mg 500 mg PO DAILY 07/1006/26/25 10/04/22 History tablet (Vitamin C) clomipramine 50 mg capsule 100 mg PO BEDTIME ANXIETY 1 06/26/25 10/04/22 History docusate sodium 100 mg tablet 100 mg PO BID 07/10/21 1 10/04/22 History fenofibrate nanocrystallized 145 145 mg PO DAILY 07/1006/26/25 10/04/22 History mg tablet ferrous sulfate 325 mg (65 mg 325 mg PO DAILY 07/10/21 06/26/25 10/04/22 History iron) tablet fludrocortisone 0.1 mg tablet 0.2 mg PO DAILY 07/10/21 06/26/25 10/04/22 History guaifenesin 100 mg/5 mL oral liquid 200 mg PO Q4H PRN Cough 07/10/21 06/26/25 Unknown History loratadine 10 mg tablet 10 mg PO DAILY PRN Allergy S ymptoms 07/10/21 06/26/25 Unknown History multivitamin 1 tab PO DAILY 07/10/21 10/0 04/1310/04/22 History sennosides 8.6 mg tablet (senna) 8.6 mg PO DAILY PRN C onstipation 07/10/21 06/26/25 Unknown History bisacodyl 10 mg rectal suppository 10 mg NM DAILY PRN Constipation 05/13/22 06/26/25 Unknown History hydrocortisone 10 mg tablet 10 mg PO TID 05/13/2204/1310/04/22 History clozapine 200 mg tablet 200 mg PO BEDTIME 06/02/22 1 06/25/25 History alfuzosin 10 mg tablet,extended 10 mg PO DAILY 5 06/26/25 Unknown History release 24 hr aluminum-mag hydroxide-simethicone 30 ml PO Q4H PRN GI Upset 02/19/25 06/26/25 Unknown History 200 mg-200 mg-20 mg/5 mL oral susp carboxymethylcellulose sodium 1 % 1 drp ophthalmic (ey e) BID 02/19/25 06/26/25 Unknown History eye drops (Artificial Tears (carboxymethylcellulose)) clozapine 100 mg tablet 100 mg PO DAILY 02/19/2504/1306/26/25 History gabapentin 100 mg capsule 200 mg PO TID 02/19/2506/26 Unknown History menthol 5 % topical patch (Bengay 1 patch topical Q8H PRN muscle ache 02/19/25 06/26/25 Unknown History Ultra Strength (menthol)) naloxone 4 mg/actuation nasal 4 mg intranasal Q3M PRN overdose 02/19/25 06/26/25 Unknown History spray (Narcan) omeprazole 40 mg capsule,delayed 40 mg PO BID@0630,163 0 02/19/25 06/26/25 Unknown History release sennosides 8.6 mg tablet (senna) 8.6 mg PO BID Constip ation 02/19/25 06/26/25 Unknown History tramadol 50 mg tablet 50 mg PO TID 02/19/25 Unknown History amlodipine 5 mg tablet 10 mg PO DAILY 06/26/2504/13 Unknown History Physical Exam 2 Vital Signs and Narrative: Vital Signs: Last Vital Signs Temp 97.9 F 06/26/25 22:48 Pulse 89 06/26/25 22:48 Resp 20 06/26/25 22:48 BP 122/67 06/26/25 22:48 Pulse Ox 94 06/26/25 22:48 O2 Del Method Oxymask 06/26/25 22:48 O2 Flow Rate 7 06/26/25 22:48 BMI result Body Mass Index 37.3 General: lethargic, will not respond to orientation, rolling over coughing and going in and out of sleep, did respond to vocal stimuli, no acute distress Resp: rhonchorus, no wheezing, crackles LLL CVS: tachy, normal rhythm GI: +BS, NT, mild distention Skin: Warm, dry Neuro: Cranial nerves II-XII grossly intact bilaterally. Motor grossly intact bilaterally Extremities: No pitting edema Psych: Lethargic Results Labs 06/26/25 22:23 06/26/25 22:23 Labs: Laboratory Results - last 24 hr 06/26/25 06/26/25 06/26/25 16:36 16:43 16:48 MCV 88.4 MCH 27.2 MCHC 30.8 L RDW 13.6 Plt Count 274 D MPV 9.6 Immature Gran % (Auto) 0.4 Neut % (Auto) 79.0 H Lymph % (Auto) 9.3 L [place] % (Auto) 10.2 Eos % (Auto) 0.5 Baso % (Auto) 0.6 Lymph # (Auto) 1.0 L [place] # (Auto) 1.1 Eos # (Auto) 0.1 Baso # (Auto) 0.1 Abs Immat Gran (auto) 0.04 H Absolute Neuts (auto) 8.6 H Absolute Nucleated RBC 0.000 Nucleated RBC % (auto) 0.0 VBG pH 7.27 L VBG pCO2 41 VBG pO2 53 VBG HCO3 19 L VBG O2 Saturation 78.0 VBG Base Excess -7.2 Anion Gap 19 Estim Creat Clear Calc 12.8 Estimated GFR 9 Random Glucose 142 H Lactic Acid 1.4 Calcium 9.2 Magnesium 2.5 Total Bilirubin 0.5 Direct Bilirubin 0.3 AST 28 ALT 28 Alkaline Phosphatase 77 Troponin I High Sens 8.2 NT-Pro-B Natriuret Pep 186.5 Total Protein 7.7 Albumin 4.0 COVID-19 (EVELYN) Negative COVID-19 Clin Com See Note Influenza Type A (VALERIO) Negative Influenza Type B (VALERIO) Negative Influenza A & B Note See Note 06/26/25 06/26/25 21:17 22:23 MCV 88.9 MCH 27.5 MCHC 30.9 L RDW 13.8 Plt Count 213 MPV 9.5 Immature Gran % (Auto) 0.3 Neut % (Auto) 70.2 Lymph % (Auto) 15.7 L [place] % (Auto) 12.3 H Eos % (Auto) 0.9 Baso % (Auto) 0.6 Lymph # (Auto) 1.1 L [place] # (Auto) 0.8 Eos # (Auto) 0.1 Baso # (Auto) 0.0 Abs Immat Gran (auto) 0.02 Absolute Neuts (auto) 4.8 Absolute Nucleated RBC 0.000 Nucleated RBC % (auto) 0.0 VBG pH 7.29 L VBG pCO2 30 VBG pO2 196 VBG HCO3 14 L VBG O2 Saturation 100.0 VBG Base Excess -10.3 Anion Gap 16 Estim Creat Clear Calc 14.7 Estimated GFR 11 Random Glucose 127 H Lactic Acid 0.6 Calcium 7.7 L D Magnesium Total Bilirubin 0.4 Direct Bilirubin AST 24 ALT 19 Alkaline Phosphatase 54 Troponin I High Sens NT-Pro-B Natriuret Pep Total Protein 6.0 L Albumin 3.2 L COVID-19 (EVELYN) COVID-19 Clin Com Influenza Type A (VALERIO) Influenza Type B (VALERIO) Influenza A & B Note Assessment and Plan (1) Acute hypoxic respiratory failure: Status: Acute (2) Sepsis: Status: Acute (3) Pneumonia: Status: Acute (4) JOSE L (acute kidney injury): Status: Acute (5) Hyperchloremic metabolic acidosis: Status: Acute (6) Chronic anemia: Status: Acute Plan Patient is a 69-year-old male with a past medical history significant for CKD 3, history SBO, schizophrenia, chronic anemia, HLD, TBI, neurogenic bladder and class 3 obesity, who presented to the ED from Care 1 due to cough, shortness of breath, malaise, lethargy and congestion for the past 2 days. Acute hypoxic respiratory failure with sepsis secondary to pneumonia - ceftriaxone and doxycycline - titrate oxygen as needed - monitor CBC and BMP JOSE L on CKD - bladder scan - A/P CT - nephrology consult Hyperchloremic metabolic acidosis - D5 NS at 75 cc/HR - repeat BMP at 02:00 Chronic anemia, stable, likely some dilution - monitor CBC History SBO - consider psych consult for med reconciliation if evidence of SBO on CT Schizophrenia - clozapine, clomipramine HLD - fenofibrate Orthostatic hypotension - hydrocortisone and fludrocortisone Class 3 obesity - weight loss encouraged Full code VTE prophylaxis: Heparin Patient with acute hypoxic respiratory failure with sepsis secondary to pneumonia complicated by JOSE L on CKD and hyperchloremic metabolic acidosis, requiring admission for at least 2 midnights stay for IV antibiotics, further evaluation and monitoring. Quality Stroke Does the patient have a stroke diagnosis?: No VTE Prior VTE?: No VTE Risk Level:: Medical - moderate - high VTE Device Contraindication: Treatment Not Indicated VTE Drug Contraindication: N/A - Med Ordered
[2025-06-27] VITALS (10 sets, daily range): BP systolic 114–143; BP diastolic 62–81; PULSE 89–99; RESP 15–22; TEMP 36.1–36.4; O2SAT 91–98
--- NOTE | 2025-06-27 00:21 | PM.EVENT ---
Event Note Date of Service: 06/27/25 Event Note: pt urinated 600ml and bladder scan will with 529 ml still. craven to be placed and urine sent for UA/culture. Time Spent With Patient Time: Total time managing care of this patient today ____ minutes.
[2025-06-27 00:38] LABS: Appearance Urine Clear; Glucose Urine UA Negative (Negative); PH 5.0 (5.0-9.0); Specific Gravity - Urine 1.015 (1.005-1.025); UMIC TRIGGER UACC YES
[2025-06-27 03:39] LABS: Anion Gap 14 (12-20); Blood Urea Nitrogen 74 mg/dL (9-16); Calcium 8.0 mg/dL (8.4-10.2); Carbon Dioxide 17 mmol/L (22-29); Chloride 121 mmol/L (96-108); Creatinine Clr Calc Pharmacy 16.1; Estimated Glomerular Filt Rate 12; Potassium 4.4 mmol/L (3.3-5.1); Sodium 148 mmol/L (135-145)
[2025-06-27 04:52] LABS: Hematocrit 36.4 % (42.0-52.0); Hemoglobin 10.9 g/dl (14.0-18.0); Mean Corpuscular HGB Conc 29.9 g/dl (31.0-36.0); Mean Corpuscular Hemoglobin 27.0 pg (27.0-33.0); Mean Corpuscular Volume 90.1 fL (80.0-98.0); NRBC Abs Auto 0.000 X10*3/uL (0.0-0.012); NRBC Pct Auto 0.0 /100WBC (0.0-0.2); Platelet Count 220 X10*3/uL (160-400); Red Blood Count 4.04 X10*6/uL (4.60-5.80); White Blood Count 5.0 X10*3/uL (4.8-10.8)
[2025-06-27] MEDS: guaiFENesin 200 MG/10 ML 10 ML LIQUID PO (05:24)
[2025-06-27 05:28] LABS: Band Neutrophils Percent 14 % (3-5); Basophils Abs Manual 0.1 X10*3/uL (0.0-0.2); Basophils Percent Manual 1 % (0-2); Lymphocytes Absolute Manual 0.7 X10*3/uL (1.2-4.9); Lymphocytes Percent Manual 14 % (20-40); Metamyelocytes Absolute 0.2 X10*3/uL; Metamyelocytes Percent 3 %; Monocytes Absolute Manual 0.4 X10*3/uL (0.1-1.2); Monocytes Percent Manual 8 % (2-11); Neutrophils Absolute Manual 3.7 X10*3/uL (2.0-8.3); Neutrophils Percent Manual 60 % (45-73); RBC Morphology NORMAL
[2025-06-27 05:32] LABS: Hypochromasia 1+ (5-14) /OIF; Large Platelet PRESENT; Microcytosis 1+ (5-14) /OIF; Ovalocytes 1+ (5-14) /OIF; Polychromasia 1+ (0-2) /OIF
[2025-06-27 06:08] LABS: Anion Gap 16 (12-20); Blood Urea Nitrogen 73 mg/dL (9-16); Calcium 8.2 mg/dL (8.4-10.2); Carbon Dioxide 17 mmol/L (22-29); Chloride 120 mmol/L (96-108); Creatinine Clr Calc Pharmacy 16.1; Estimated Glomerular Filt Rate 12; Magnesium 2.2 mg/dL (1.6-2.6); Potassium 4.5 mmol/L (3.3-5.1); Sodium 148 mmol/L (135-145)
[2025-06-27] MEDS: Ferrous Sulfate 324 MG TABLET.DR PO (08:17)
[2025-06-27] MEDS: Artificial Tears 15 ML DROPS 1 DROP EYE-BOTH ×2 (08:23→19:56)
[2025-06-27] MEDS: 0.9 % Sodium Chloride Flush 3 ML SYRINGE IVFLUSH (08:24)
--- NOTE | 2025-06-27 09:12 | PM.CNNEP ---
History of Present Illness Reason for Consult Consult date: 06/27/25 Chief Complaint Chief complaint: Pneumonia, + JOSE L History of Present Illness Narrative: 69-year-old male with a medical history significant for CKD , Neurogenic bladder, remote history of Lithiums use, schizophrenia, chronic anemia, HLD, TBI,and class 3 obesity, Admitted with cough and dyspnea Currently being treated for pneumonia CT showed significant bladder distention Baseline creatinine is 2.8 s/p JOSE L with Cr of 6.8 and trending downing Review of Systems Review of Systems Yes Unobtainable due to mental condition [facility] Past Medical History Medical History Partial small bowel obstruction Schizoaffective disorder Chronic kidney disease, stage 3 Anemia Hyperlipidemia Orthostatic hypotension GERD (gastroesophageal reflux disease) Attention deficit hyperactivity disorder Neurogenic bladder Hematuria TBI (traumatic brain injury) Surgical History Surgical History History of surgery Social History Social History Household Members: Other Housing: Other Housing Other:: [facility] Do you presently have visiting nurse or other home services: Yes Alcohol intake: never Patient Tobacco Use Status: Former Tobacco user Tobacco use type: Cigarette and Cigar Advance Directives Date on File: 07/10/21 service: No Current occupational status: disabled Meds Allergies Allergy/AdvReac Type Severity Reaction Status Date / Time NSAIDS (Non-Steroidal Allergy Unknown UNKNOWN Verified 06/26/25 16:33 Anti-Inflamma (NSAIDS (NON-STEROIDAL ANTI-INFLAMMA) Active Medications: Current Medications Acetaminophen (Acetaminophen 325 Mg Tablet) 650 mg PO Q6H PRN PRN Reason: Pain, Mild 1-3,fever,headache Al Hydroxide/Mg Hydroxide (Magnesium Hydrox/Alum Hydrox 30 Ml Oral.Susp) 30 ml PO Q4H PRN PRN Reason: GI Upset Albuterol Sulfate (Albuterol Sulfate 90 Mcg 8 Gm Inhaler) 2 puff INHALE Q4H PRN PRN Reason: Wheezing Amlodipine Besylate (Amlodipine Besylate 10 Mg Tablet) 10 mg PO DAILY [facility]; Protocol Last Admin: 06/27/25 08:16 Dose: 10 mg Artificial Tears (Artificial Tears 15 Ml Drops) 1 drop EYE-BOTH BID [facility] Last Admin: 06/27/25 08:23 Dose: 1 drop Ascorbic Acid (Ascorbic Acid 500 Mg Tablet) 500 mg PO DAILY [facility] Last Admin: 06/27/25 08:16 Dose: 500 mg Bisacodyl (Bisacodyl 10 Mg Supp.Rect) 10 mg NE DAILY PRN PRN Reason: Constipation Calcium Carbonate (Calcium Carbonate 750 Mg Tab.Chew) 750 mg PO Q4H PRN PRN Reason: Heartburn Ceftriaxone Sodium (Ceftriaxone Sodium 2 Gm Vial) 2 gm IVPUSH Q24H [facility] Last Admin: 06/26/25 22:09 Dose: 2 gm Clomipramine HCl (Clomipramine Hcl 25 Mg Capsule) 100 mg PO BEDTIME [facility] Clozapine (Clozapine 100 Mg Tablet) 100 mg PO DAILY [facility] Last Admin: 06/27/25 08:17 Dose: 100 mg Clozapine (Clozapine 100 Mg Tablet) 200 mg PO BEDTIME [facility] Docusate Sodium (Docusate Sodium 100 Mg Capsule) 100 mg PO BID [facility] Last Admin: 06/27/25 08:17 Dose: 100 mg Fenofibrate (Fenofibrate 160 Mg Tablet) 160 mg PO DAILY [facility] Last Admin: 06/27/25 08:22 Dose: 160 mg Ferrous Sulfate (Ferrous Sulfate 324 Mg Tablet.Dr) 324 mg PO DAILY [facility] Last Admin: 06/27/25 08:17 Dose: 324 mg Fludrocortisone Acetate (Fludrocortisone Acetate 0.1 Mg Tablet) 0.2 mg PO DAILY [facility] Last Admin: 06/27/25 08:21 Dose: 0.2 mg Gabapentin (Gabapentin 100 Mg Capsule) 200 mg PO TID [facility] Last Admin: 06/27/25 08:17 Dose: 200 mg Guaifenesin (Guaifenesin 200 Mg/10 Ml 10 Ml Liquid) 10 ml PO Q4H PRN PRN Reason: Cough Last Admin: 06/27/25 05:24 Dose: 10 ml Heparin Sodium (Porcine) (Heparin Sodium,Porcine 5,000 Unit/Ml Vial) 5,000 unit SUBCUT Q8H [facility] Last Admin: 06/27/25 08:17 Dose: 5,000 unit Hydrocortisone (Hydrocortisone 10 Mg Tablet) 10 mg PO TID [facility] Last Admin: 06/27/25 08:22 Dose: 10 mg Doxycycline Hyclate 100 mg/ (Sodium Chloride) 250 mls @ 166.67 mls/hr IV BID [facility] Last Admin: 06/27/25 08:55 Dose: 166.67 mls/hr Dextrose/Sodium Chloride (D5ns) 1,000 mls @ 75 mls/hr IVCONT .[id number] [facility] Last Admin: 06/27/25 00:21 Dose: 75 mls/hr Loratadine (Loratadine 10 Mg Tablet) 10 mg PO DAILY PRN PRN Reason: Allergy Symptoms Magnesium Hydroxide (Milk Of Magnesia 30 Ml Oral.Susp) 30 ml PO DAILY PRN PRN Reason: Constipation Melatonin (Melatonin 3 Mg Tablet) 6 mg PO BEDTIME PRN PRN Reason: Insomnia Multivitamins/Vitamin C (Multivitamin Tablet) 1 tab PO DAILY [facility] Last Admin: 06/27/25 08:16 Dose: 1 tab Omeprazole (Omeprazole 40 Mg Capsule.Dr) 40 mg PO BID@0630,1630 [facility] Last Admin: 06/27/25 08:16 Dose: 40 mg Senna (Sennosides 8.6 Mg Tablet) 8.6 mg PO BID [facility] Last Admin: 06/27/25 08:17 Dose: 8.6 mg Senna (Sennosides 8.6 Mg Tablet) 8.6 mg PO DAILY PRN PRN Reason: Constipation Sodium Chloride (0.9 % Sodium Chloride Flush 3 Ml Syringe) 3 ml IVFLUSH QSHIFT [facility] Last Admin: 06/27/25 08:24 Dose: 3 ml Tamsulosin HCl (Tamsulosin Hcl 0.4 Mg Capsule) 10 mg PO DAILY [facility] Tramadol HCl (Tramadol Hcl 50 Mg Tablet) 50 mg PO Q6H PRN PRN Reason: Pain, Moderate(Pain Scale 4-6) Home Medications ?Medication ?Instructions ?Recorded ?Confirmed ?Last Taken ?Type albuterol sulfate 90 mcg/actuation 2 puff inhalation Q4H PRN Wheezing 07/10/21 06/26/25 Unknown History aerosol inhaler ascorbic acid (vitamin C) 500 mg 500 mg PO DAILY 07/10/21 06/26/25 10/04/22 History tablet (Vitamin C) clomipramine 50 mg capsule 100 mg PO BEDTIME ANXIETY 07/10/21 06/26/25 10/04/22 History docusate sodium 100 mg tablet 100 mg PO BID 07/10/21 06/26/25 10/04/22 History fenofibrate nanocrystallized 145 145 mg PO DAILY 07/10/21 06/26/25 10/04/22 History mg tablet ferrous sulfate 325 mg (65 mg 325 mg PO DAILY 07/10/21 06/26/25 10/04/22 History iron) tablet fludrocortisone 0.1 mg tablet 0.2 mg PO DAILY 07/10/21 06/26/25 10/04/22 History guaifenesin 100 mg/5 mL oral liquid 200 mg PO Q4H PRN Cough 07/10/21 06/26/25 Unknown History loratadine 10 mg tablet 10 mg PO DAILY PRN Allergy Symptoms 07/10/21 06/26/25 Unknown History multivitamin 1 tab PO DAILY 07/10/21 06/26/25 10/04/22 History sennosides 8.6 mg tablet (senna) 8.6 mg PO DAILY PRN Constipation 07/10/21 06/26/25 Unknown History bisacodyl 10 mg rectal suppository 10 mg NE DAILY PRN Constipation 05/13/22 06/26/25 Unknown History hydrocortisone 10 mg tablet 10 mg PO TID 05/13/22 06/26/25 10/04/22 History clozapine 200 mg tablet 200 mg PO BEDTIME 06/02/22 06/26/25 06/25/25 History alfuzosin 10 mg tablet,extended 10 mg PO DAILY 02/19/25 06/26/25 Unknown History release 24 hr aluminum-mag hydroxide-simethicone 30 ml PO Q4H PRN GI Upset 02/19/25 06/26/25 Unknown History 200 mg-200 mg-20 mg/5 mL oral susp carboxymethylcellulose sodium 1 % 1 drp ophthalmic (eye) BID 02/19/25 06/26/25 Unknown History eye drops (Artificial Tears (carboxymethylcellulose)) clozapine 100 mg tablet 100 mg PO DAILY 02/19/25 06/26/25 06/26/25 History gabapentin 100 mg capsule 200 mg PO TID 02/19/25 06/26/25 Unknown History menthol 5 % topical patch (Bengay 1 patch topical Q8H PRN muscle ache 02/19/25 06/26/25 Unknown History Ultra Strength (menthol)) naloxone 4 mg/actuation nasal 4 mg intranasal Q3M PRN overdose 02/19/25 06/26/25 Unknown History spray (Narcan) omeprazole 40 mg capsule,delayed 40 mg PO BID@0630,1630 02/19/25 06/26/25 Unknown History release sennosides 8.6 mg tablet (senna) 8.6 mg PO BID Constipation 02/19/25 06/26/25 Unknown History tramadol 50 mg tablet 50 mg PO TID 02/19/25 06/26/25 Unknown History amlodipine 5 mg tablet 10 mg PO DAILY 06/26/25 06/26/25 Unknown History Physical Exam Vital Signs: Last Vital Signs Temp 96.9 F 06/27/25 00:51 Pulse 91 06/27/25 08:00 Resp 20 06/27/25 08:00 BP 117/76 06/27/25 08:00 Pulse Ox 97 06/27/25 08:00 O2 Del Method Oxymask 06/27/25 08:00 O2 Flow Rate 6 06/27/25 08:00 Oxygen Flow Rate 6 06/26/25 19:15 BMI result Body Mass Index 37.3 Ill appearing Neck supple no JVD. Lungs entry equal no rales. Few rhonchi Heart S1-S2 heard no gallop or rub. Abdomen soft nontender. Neuro alert awake oriented. No asterixis. Extremities no edema. Results Lab Results 06/28/25 05:52 06/28/25 05:52 Lab results: Chemistry 06/26/25 06/26/25 06/27/25 16:36 22:23 03:20 Sodium 146 H 148 H 148 H Potassium 4.5 D 4.5 4.4 Carbon Dioxide 21 L 17 L 17 L BUN 89 H 78 H 74 H Creatinine 6.05 H* 5.24 H* 4.81 H* Calcium 9.2 7.7 L D 8.0 L 06/27/25 05:29 Sodium 148 H Potassium 4.5 Carbon Dioxide 17 L BUN 73 H Creatinine 4.81 H* Calcium 8.2 L Hematology 06/26/25 06/26/25 06/27/25 16:36 22:23 03:20 WBC 10.8 6.8 5.0 Hgb 12.2 L 10.7 L 10.9 L Plt Count 274 D 213 220 Urinalysis 06/27/25 00:27 Urine Color Yellow Urine Appearance Clear Urine pH 5.0 Ur Specific [place] 1.015 Urine Protein 100 (2+) H Urine Glucose (UA) Negative Urine Ketones Negative Urine Blood Negative Urine Nitrite Negative Ur Leukocyte Esterase Trace H Urine RBC 0-2 Urine WBC 0-5 Ur Squamous Epith Cells 0-2 Hyaline Casts 0-2 Assessment and Plan (1) JOSE L (acute kidney injury): Status: Acute (2) Hyperchloremic metabolic acidosis: Status: Acute (3) Neurogenic bladder: Status: Acute Plan JOSE L superimposed on CKD JOSE L due to hypoperfusion and possibel urinary retentino form neurogenic bladder Hypernatremia due to free water deficit Need to r/o Nephrogenic DI given the h/o [place] use in the past Poor PO intake could be contributing as well. Suggest Urine for Na, Cr, Osm - ordered Change IVF: to 1/2 NS at 100 cc/hr Insert craven for 24- 48 hours Keep I > O Can Add NaHCO3 if serum tCO2 drops below 16 Watch and replace Potassium as needed Follow renal function No indication for dialysis Procedures Date of Service Date of Service: 06/28/25
--- NOTE | 2025-06-27 10:36 | MHC.CM.PN ---
IMM 06/27/25, sent to pt.'s sister, Oralia, . She lives in [place]. Pt. lives at [facility] and is sleeping soundly at this time. His DCP is to return to [facility] [place] via [facility] van. Return referral placed in [facility] to follow for DC needs.
--- NOTE | 2025-06-27 13:40 | HO.PM.IMPN ---
Subjective Subjective Date of Service: 06/27/25 Interval History: Pt awake and alert, oriented to self, place, and time Denies hx of urinary retention before Continues to have occasionally productive cough Minor abd discomfort Does not like Bay Review of Systems Review of Systems: Yes all other systems are reviewed and are negative Physical Exam Exam: Exam: General: AOx3, no acute distress Resp: CTA bilaterally CVS: S1, S2, RRR GI: +BS, no distention, NT Skin: Warm, dry : Bay in place draining straw-colored urine Neuro: Cranial nerves II-XII grossly intact bilaterally. Motor grossly intact bilaterally Extremities: No edema Psych: Calm, cooperative Vital Signs: Vital Signs: Last Vital Signs Temp 96.9 F 06/27/25 00:51 Pulse 90 06/27/25 11:54 Resp 15 06/27/25 11:54 BP 128/72 06/27/25 11:54 Pulse Ox 96 06/27/25 11:54 O2 Del Method Nasal Cannula 06/27/25 11:54 O2 Flow Rate 5 06/27/25 11:54 Oxygen Flow Rate 6 06/26/25 19:15 BMI result Body Mass Index 37.3 Objective Data Active Medications Acetaminophen (Acetaminophen 325 Mg Tablet) 650 mg PO Q6H PRN PRN Reason: Pain, Mild 1-3,fever,headache Al Hydroxide/Mg Hydroxide (Magnesium Hydrox/Alum Hydrox 30 Ml Oral.Susp) 30 ml PO Q4H PRN PRN Reason: GI Upset Albuterol Sulfate (Albuterol Sulfate 90 Mcg 8 Gm Inhaler) 2 puff INHALE Q4H PRN PRN Reason: Wheezing Amlodipine Besylate (Amlodipine Besylate 10 Mg Tablet) 10 mg PO DAILY [facility]; Protocol Last Admin: 06/27/25 08:16 Dose: 10 mg Documented By: KASIE Artificial Tears (Artificial Tears 15 Ml Drops) 1 drop EYE-BOTH BID [facility] Last Admin: 06/27/25 08:23 Dose: 1 drop Documented By: KASIE Ascorbic Acid (Ascorbic Acid 500 Mg Tablet) 500 mg PO DAILY [facility] Last Admin: 06/27/25 08:16 Dose: 500 mg Documented By: KASIE Bisacodyl (Bisacodyl 10 Mg Supp.Rect) 10 mg [place] DAILY PRN PRN Reason: Constipation Calcium Carbonate (Calcium Carbonate 750 Mg Tab.Chew) 750 mg PO Q4H PRN PRN Reason: Heartburn Ceftriaxone Sodium (Ceftriaxone Sodium 2 Gm Vial) 2 gm IVPUSH Q24H [facility] Last Admin: 06/26/25 22:09 Dose: 2 gm Documented By: NONI Clomipramine HCl (Clomipramine Hcl 25 Mg Capsule) 100 mg PO BEDTIME [facility] Clozapine (Clozapine 100 Mg Tablet) 100 mg PO DAILY [facility] Last Admin: 06/27/25 08:17 Dose: 100 mg Documented By: KASIE Clozapine (Clozapine 100 Mg Tablet) 200 mg PO BEDTIME [facility] Docusate Sodium (Docusate Sodium 100 Mg Capsule) 100 mg PO BID [facility] Last Admin: 06/27/25 08:17 Dose: 100 mg Documented By: KASIE Fenofibrate (Fenofibrate 160 Mg Tablet) 160 mg PO DAILY [facility] Last Admin: 06/27/25 08:22 Dose: 160 mg Documented By: KASIE Ferrous Sulfate (Ferrous Sulfate 324 Mg Tablet.Dr) 324 mg PO DAILY [facility] Last Admin: 06/27/25 08:17 Dose: 324 mg Documented By: KASIE Fludrocortisone Acetate (Fludrocortisone Acetate 0.1 Mg Tablet) 0.2 mg PO DAILY [facility] Last Admin: 06/27/25 08:21 Dose: 0.2 mg Documented By: KASIE Gabapentin (Gabapentin 100 Mg Capsule) 200 mg PO TID [facility] Last Admin: 06/27/25 08:17 Dose: 200 mg Documented By: KASIE Guaifenesin (Guaifenesin 200 Mg/10 Ml 10 Ml Liquid) 10 ml PO Q4H PRN PRN Reason: Cough Last Admin: 06/27/25 05:24 Dose: 10 ml Documented By: NONI Heparin Sodium (Porcine) (Heparin Sodium,Porcine 5,000 Unit/Ml Vial) 5,000 unit SUBCUT Q8H [facility] Last Admin: 06/27/25 08:17 Dose: 5,000 unit Documented By: KASIE Hydrocortisone (Hydrocortisone 10 Mg Tablet) 10 mg PO TID [facility] Last Admin: 06/27/25 08:22 Dose: 10 mg Documented By: KASIE Doxycycline Hyclate 100 mg/ (Sodium Chloride) 250 mls @ 166.67 mls/hr IV BID [facility] Last Infusion: 06/27/25 11:32 Dose: Infused Documented By: KASIE Dextrose/Sodium Chloride (D5ns) 1,000 mls @ 75 mls/hr IVCONT .[id number] [facility] Last Admin: 06/27/25 00:21 Dose: 75 mls/hr Documented By: ARVINMATRENETTA Loratadine (Loratadine 10 Mg Tablet) 10 mg PO DAILY PRN PRN Reason: Allergy Symptoms Magnesium Hydroxide (Milk Of Magnesia 30 Ml Oral.Susp) 30 ml PO DAILY PRN PRN Reason: Constipation Melatonin (Melatonin 3 Mg Tablet) 6 mg PO BEDTIME PRN PRN Reason: Insomnia Multivitamins/Vitamin C (Multivitamin Tablet) 1 tab PO DAILY [facility] Last Admin: 06/27/25 08:16 Dose: 1 tab Documented By: KASIE Omeprazole (Omeprazole 40 Mg Capsule.Dr) 40 mg PO BID@0630,1630 [facility] Last Admin: 06/27/25 08:16 Dose: 40 mg Documented By: KASIE Senna (Sennosides 8.6 Mg Tablet) 8.6 mg PO BID [facility] Last Admin: 06/27/25 08:17 Dose: 8.6 mg Documented By: KASIE Senna (Sennosides 8.6 Mg Tablet) 8.6 mg PO DAILY PRN PRN Reason: Constipation Sodium Chloride (0.9 % Sodium Chloride Flush 3 Ml Syringe) 3 ml IVFLUSH QSHIFT [facility] Last Admin: 06/27/25 08:24 Dose: 3 ml Documented By: KASIE Tamsulosin HCl (Tamsulosin Hcl 0.4 Mg Capsule) 0.4 mg PO DAILY [facility] Last Admin: 06/27/25 12:36 Dose: 0.4 mg Documented By: KASIE Tramadol HCl (Tramadol Hcl 50 Mg Tablet) 50 mg PO Q6H PRN PRN Reason: Pain, Moderate(Pain Scale 4-6) Labs 06/27/25 03:20 06/27/25 05:29 Labs: Laboratory Results - last 24 hr 06/26/25 06/26/25 06/26/25 16:36 16:43 16:48 MCV 88.4 MCH 27.2 MCHC 30.8 L RDW 13.6 Plt Count 274 D MPV 9.6 Immature Gran % (Auto) 0.4 Neut % (Auto) 79.0 H Lymph % (Auto) 9.3 L [place] % (Auto) 10.2 Eos % (Auto) 0.5 Baso % (Auto) 0.6 Lymph # (Auto) 1.0 L [place] # (Auto) 1.1 Eos # (Auto) 0.1 Baso # (Auto) 0.1 Abs Immat Gran (auto) 0.04 H Absolute Neuts (auto) 8.6 H Absolute Nucleated RBC 0.000 Nucleated RBC % (auto) 0.0 Neutrophils % (Manual) Band Neutrophils % Lymphocytes % (Manual) Monocytes % (Manual) Basophils % (Manual) Metamyelocytes % Abs Neuts (Manual) Lymphocytes # (Manual) Monocytes # (Manual) Basophils # (Manual) Metamyelocytes # Platelet Estimate Large Platelets Plt Morphology Comment RBC Morphology Polychromasia Hypochromasia Microcytosis Ovalocytes VBG pH 7.27 L VBG pCO2 41 VBG pO2 53 VBG HCO3 19 L VBG O2 Saturation 78.0 VBG Base Excess -7.2 Anion Gap 19 Estim Creat Clear Calc 12.8 Estimated GFR 9 Random Glucose 142 H Lactic Acid 1.4 Calcium 9.2 Magnesium 2.5 Total Bilirubin 0.5 Direct Bilirubin 0.3 AST 28 ALT 28 Alkaline Phosphatase 77 Troponin I High Sens 8.2 NT-Pro-B Natriuret Pep 186.5 Total Protein 7.7 Albumin 4.0 Urine Color Urine Appearance Urine pH Ur Specific [place] Urine Protein Urine Glucose (UA) Urine Ketones Urine Blood Urine Nitrite Ur Leukocyte Esterase Urine RBC Urine WBC Ur Squamous Epith Cells Urine Bacteria Hyaline Casts COVID-19 (EVELYN) Negative COVID-19 Clin Com See Note Influenza Type A (VALERIO) Negative Influenza Type B (VALERIO) Negative Influenza A & B Note See Note 06/26/25 06/26/25 06/27/25 21:17 22:23 00:27 MCV 88.9 MCH 27.5 MCHC 30.9 L RDW 13.8 Plt Count 213 MPV 9.5 Immature Gran % (Auto) 0.3 Neut % (Auto) 70.2 Lymph % (Auto) 15.7 L [place] % (Auto) 12.3 H Eos % (Auto) 0.9 Baso % (Auto) 0.6 Lymph # (Auto) 1.1 L [place] # (Auto) 0.8 Eos # (Auto) 0.1 Baso # (Auto) 0.0 Abs Immat Gran (auto) 0.02 Absolute Neuts (auto) 4.8 Absolute Nucleated RBC 0.000 Nucleated RBC % (auto) 0.0 Neutrophils % (Manual) Band Neutrophils % Lymphocytes % (Manual) Monocytes % (Manual) Basophils % (Manual) Metamyelocytes % Abs Neuts (Manual) Lymphocytes # (Manual) Monocytes # (Manual) Basophils # (Manual) Metamyelocytes # Platelet Estimate Large Platelets Plt Morphology Comment RBC Morphology Polychromasia Hypochromasia Microcytosis Ovalocytes VBG pH 7.29 L VBG pCO2 30 VBG pO2 196 VBG HCO3 14 L VBG O2 Saturation 100.0 VBG Base Excess -10.3 Anion Gap 16 Estim Creat Clear Calc 14.7 Estimated GFR 11 Random Glucose 127 H Lactic Acid 0.6 Calcium 7.7 L D Magnesium Total Bilirubin 0.4 Direct Bilirubin AST 24 ALT 19 Alkaline Phosphatase 54 Troponin I High Sens NT-Pro-B Natriuret Pep Total Protein 6.0 L Albumin 3.2 L Urine Color Yellow Urine Appearance Clear Urine pH 5.0 Ur Specific [place] 1.015 Urine Protein 100 (2+) H Urine Glucose (UA) Negative Urine Ketones Negative Urine Blood Negative Urine Nitrite Negative Ur Leukocyte Esterase Trace H Urine RBC 0-2 Urine WBC 0-5 Ur Squamous Epith Cells 0-2 Urine Bacteria None Seen Hyaline Casts 0-2 COVID-19 (EVELYN) COVID-19 Clin Com Influenza Type A (VALERIO) Influenza Type B (VALERIO) Influenza A & B Note 06/27/25 06/27/25 03:20 05:29 MCV 90.1 MCH 27.0 MCHC 29.9 L RDW 13.9 Plt Count 220 MPV 9.9 Immature Gran % (Auto) Cancelled Neut % (Auto) Cancelled Lymph % (Auto) Cancelled [place] % (Auto) Cancelled Eos % (Auto) Cancelled Baso % (Auto) Cancelled Lymph # (Auto) Cancelled [place] # (Auto) Cancelled Eos # (Auto) Cancelled Baso # (Auto) Cancelled Abs Immat Gran (auto) Cancelled Absolute Neuts (auto) Cancelled Absolute Nucleated RBC 0.000 Nucleated RBC % (auto) 0.0 Neutrophils % (Manual) 60 Band Neutrophils % 14 H Lymphocytes % (Manual) 14 L Monocytes % (Manual) 8 Basophils % (Manual) 1 Metamyelocytes % 3 Abs Neuts (Manual) 3.7 Lymphocytes # (Manual) 0.7 L Monocytes # (Manual) 0.4 Basophils # (Manual) 0.1 Metamyelocytes # 0.2 Platelet Estimate NORMAL Large Platelets PRESENT Plt Morphology Comment NOTED RBC Morphology NORMAL Polychromasia 1+ (0-2) Hypochromasia 1+ (5-14) Microcytosis 1+ (5-14) Ovalocytes 1+ (5-14) VBG pH VBG pCO2 VBG pO2 VBG HCO3 VBG O2 Saturation VBG Base Excess Anion Gap 14 16 Estim Creat Clear Calc 16.1 16.1 Estimated GFR 12 12 Random Glucose 134 H 126 H Lactic Acid Calcium 8.0 L 8.2 L Magnesium 2.2 Total Bilirubin Direct Bilirubin AST ALT Alkaline Phosphatase Troponin I High Sens NT-Pro-B Natriuret Pep Total Protein Albumin Urine Color Urine Appearance Urine pH Ur Specific [place] Urine Protein Urine Glucose (UA) Urine Ketones Urine Blood Urine Nitrite Ur Leukocyte Esterase Urine RBC Urine WBC Ur Squamous Epith Cells Urine Bacteria Hyaline Casts COVID-19 (EVELYN) COVID-19 Clin Com Influenza Type A (VALERIO) Influenza Type B (VALERIO) Influenza A & B Note Assessment and Plan (1) JOSE L (acute kidney injury): Status: Acute (2) Acute hypoxic respiratory failure: Status: Acute (3) Pneumonia: Status: Acute Plan Patient is a 69-year-old male with a past medical history significant for CKD 3, history SBO, schizophrenia, chronic anemia, HLD, TBI, neurogenic bladder and class 3 obesity, who presented to the ED from [facility] due to cough, shortness of breath, malaise, lethargy and congestion for the past 2 days. Acute hypoxic respiratory failure with sepsis secondary to pneumonia - met sepsis with fever and tacycardia; lactic acid WNL - desatting to upper 80s on RA - ceftriaxone and doxycycline, day 2 - titrate oxygen as needed - monitor CBC and BMP JOSE L on CKD3 in the setting of acute urinary retention - CT showing distended urinary bladder with bladder diverticula, postvoid bladder scan showing 529 mL of retained urine - nephrology consulted, recommend: - 1/2 NS at 100 cc/h - check urine for sodium, creatinine, osmolality - keep Bay for 24-48 hours - keep I>O - UA negative; being covered with abx for pna as above Hypernatremia - secondary to free water deficit in the setting of above - 1/2 NS as above - monitor NA+ Hyperchloremic metabolic acidosis - IVF as above - follow labs Chronic anemia, stable, likely some dilution - monitor CBC Schizophrenia - clozapine, clomipramine HLD - fenofibrate Orthostatic hypotension - hydrocortisone and fludrocortisone Class 3 obesity - weight loss encouraged Full code VTE prophylaxis: Heparin Pt needs continued hospitalization for treatment of acute hypoxic respiratory failure with sepsis secondary to pneumonia complicated by JOSE L on CKD in the setting of acute urinary retention. Pt will require IVF, IV antibiotics, and close monitoring of labs. Quality Stroke Does the patient have a stroke diagnosis?: No VTE Prior VTE?: No VTE Risk Level:: Medical - moderate - high VTE Device Contraindication: Treatment Not Indicated VTE Drug Contraindication: N/A - Med Ordered
[2025-06-28 04:00] VITALS: BP 137/85; PULSE 96; RESP 16; TEMP 36.2; O2SAT 93
[2025-06-28 06:14] LABS: MANUAL DIFF FLAG NO
[2025-06-28 06:22] LABS: Hematocrit 35.7 % (42.0-52.0); Hemoglobin 10.9 g/dl (14.0-18.0); Imm Gran Abs Auto 0.05 X10*3/uL (0.00-0.03); Imm Gran Pct Auto 0.8 % (0.0-0.4); Lymphocytes Absolute Auto 1.4 X10*3/uL (1.2-4.9); Mean Corpuscular HGB Conc 30.5 g/dl (31.0-36.0); Mean Corpuscular Hemoglobin 27.6 pg (27.0-33.0); Mean Corpuscular Volume 90.4 fL (80.0-98.0); NRBC Abs Auto 0.000 X10*3/uL (0.0-0.012); NRBC Pct Auto 0.0 /100WBC (0.0-0.2); Platelet Count 188 X10*3/uL (160-400); Red Blood Count 3.95 X10*6/uL (4.60-5.80); White Blood Count 6.1 X10*3/uL (4.8-10.8)
[2025-06-28 06:40] LABS: Anion Gap 12 (12-20); Blood Urea Nitrogen 53 mg/dL (9-16); Calcium 8.4 mg/dL (8.4-10.2); Carbon Dioxide 19 mmol/L (22-29); Chloride 115 mmol/L (96-108); Creatinine Clr Calc Pharmacy 21.9; Estimated Glomerular Filt Rate 17; Magnesium 1.8 mg/dL (1.6-2.6); Potassium 3.7 mmol/L (3.3-5.1); Sodium 142 mmol/L (135-145)
[2025-06-28 07:42] VITALS: BP 129/76; PULSE 98; RESP 15; TEMP 36.1; O2SAT 91
[2025-06-28] MEDS: Ferrous Sulfate 324 MG TABLET.DR PO (08:17)
[2025-06-28] MEDS: 0.9 % Sodium Chloride Flush 3 ML SYRINGE IVFLUSH ×2 (08:19→16:21)
[2025-06-28] MEDS: Artificial Tears 15 ML DROPS 1 DROP EYE-BOTH ×2 (08:19→20:42)
--- NOTE | 2025-06-28 14:25 | HO.PM.IMPN ---
Subjective Subjective Date of Service: 06/28/25 Interval History: No acute events overnight Cough improved Reports mild diffuse abd pain No N/V, has tolerated solid diet Review of Systems Review of Systems: Yes all other systems are reviewed and are negative Physical Exam Vital Signs: Vital Signs: Last Vital Signs Temp 96.9 F 06/28/25 07:42 Pulse 98 06/28/25 07:42 Resp 15 06/28/25 07:42 BP 129/76 06/28/25 07:42 Pulse Ox 91 L 06/28/25 07:42 O2 Del Method Room Air 06/28/25 07:42 O2 Flow Rate 2 06/27/25 19:19 Oxygen Flow Rate 6 06/26/25 19:15 BMI result Body Mass Index 37.3 Objective Data Active Medications Acetaminophen (Acetaminophen 325 Mg Tablet) 650 mg PO Q6H PRN PRN Reason: Pain, Mild 1-3,fever,headache Last Admin: 06/28/25 09:28 Dose: 650 mg Documented By: CODEY Al Hydroxide/Mg Hydroxide (Magnesium Hydrox/Alum Hydrox 30 Ml Oral.Susp) 30 ml PO Q4H PRN PRN Reason: GI Upset Albuterol Sulfate (Albuterol Sulfate 90 Mcg 8 Gm Inhaler) 2 puff INHALE Q4H PRN PRN Reason: Wheezing Amlodipine Besylate (Amlodipine Besylate 10 Mg Tablet) 10 mg PO DAILY [facility]; Protocol Last Admin: 06/28/25 08:17 Dose: 10 mg Documented By: CODEY Artificial Tears (Artificial Tears 15 Ml Drops) 1 drop EYE-BOTH BID [facility] Last Admin: 06/28/25 08:19 Dose: 1 drop Documented By: CODEY Ascorbic Acid (Ascorbic Acid 500 Mg Tablet) 500 mg PO DAILY [facility] Last Admin: 06/28/25 08:16 Dose: 500 mg Documented By: CODEY Bisacodyl (Bisacodyl 10 Mg Supp.Rect) 10 mg [place] DAILY PRN PRN Reason: Constipation Calcium Carbonate (Calcium Carbonate 750 Mg Tab.Chew) 750 mg PO Q4H PRN PRN Reason: Heartburn Ceftriaxone Sodium (Ceftriaxone Sodium 2 Gm Vial) 2 gm IVPUSH Q24H [facility] Last Admin: 06/27/25 21:45 Dose: 2 gm Documented By: HERMINIA Clomipramine HCl (Clomipramine Hcl 25 Mg Capsule) 100 mg PO BEDTIME [facility] Last Admin: 06/27/25 19:57 Dose: 100 mg Documented By: HERMINIA Clozapine (Clozapine 100 Mg Tablet) 100 mg PO DAILY [facility] Last Admin: 06/28/25 08:16 Dose: 100 mg Documented By: CODEY Clozapine (Clozapine 100 Mg Tablet) 200 mg PO BEDTIME [facility] Last Admin: 06/27/25 19:57 Dose: 200 mg Documented By: HERMINIA Docusate Sodium (Docusate Sodium 100 Mg Capsule) 100 mg PO BID [facility] Last Admin: 06/28/25 08:17 Dose: 100 mg Documented By: CODEY Fenofibrate (Fenofibrate 160 Mg Tablet) 160 mg PO DAILY [facility] Last Admin: 06/28/25 08:16 Dose: 160 mg Documented By: CODEY Ferrous Sulfate (Ferrous Sulfate 324 Mg Tablet.Dr) 324 mg PO DAILY [facility] Last Admin: 06/28/25 08:17 Dose: 324 mg Documented By: CODEY Fludrocortisone Acetate (Fludrocortisone Acetate 0.1 Mg Tablet) 0.2 mg PO DAILY [facility] Last Admin: 06/28/25 08:17 Dose: 0.2 mg Documented By: CODEY Gabapentin (Gabapentin 100 Mg Capsule) 200 mg PO TID [facility] Last Admin: 06/28/25 08:16 Dose: 200 mg Documented By: CODEY Guaifenesin (Guaifenesin 200 Mg/10 Ml 10 Ml Liquid) 10 ml PO Q4H PRN PRN Reason: Cough Last Admin: 06/27/25 05:24 Dose: 10 ml Documented By: NNOI Heparin Sodium (Porcine) (Heparin Sodium,Porcine 5,000 Unit/Ml Vial) 5,000 unit SUBCUT Q8H [facility] Last Admin: 06/28/25 09:26 Dose: 5,000 unit Documented By: CODEY Hydrocortisone (Hydrocortisone 10 Mg Tablet) 10 mg PO TID [facility] Last Admin: 06/28/25 08:17 Dose: 10 mg Documented By: CODEY Doxycycline Hyclate 100 mg/ (Sodium Chloride) 250 mls @ 166.67 mls/hr IV BID [facility] Last Infusion: 06/28/25 11:20 Dose: Infused Documented By: CODEY Sodium Chloride (Sodium Chloride 0.45 %) 1,000 mls @ 100 mls/hr IVCONT .Q10H [facility] Last Admin: 06/28/25 13:20 Dose: Not Given Documented By: CODEY Non-Admin Reason: IV Running Loratadine (Loratadine 10 Mg Tablet) 10 mg PO DAILY PRN PRN Reason: Allergy Symptoms Magnesium Hydroxide (Milk Of Magnesia 30 Ml Oral.Susp) 30 ml PO DAILY PRN PRN Reason: Constipation Melatonin (Melatonin 3 Mg Tablet) 6 mg PO BEDTIME PRN PRN Reason: Insomnia Multivitamins/Vitamin C (Multivitamin Tablet) 1 tab PO DAILY [facility] Last Admin: 06/28/25 08:17 Dose: 1 tab Documented By: CODEY Omeprazole (Omeprazole 40 Mg Capsule.) 40 mg PO BID@0630,1630 [facility] Last Admin: 06/28/25 05:36 Dose: 40 mg Documented By: HERMINIA Senna (Sennosides 8.6 Mg Tablet) 8.6 mg PO BID [facility] Last Admin: 06/28/25 08:16 Dose: 8.6 mg Documented By: CODEY Senna (Sennosides 8.6 Mg Tablet) 8.6 mg PO DAILY PRN PRN Reason: Constipation Sodium Chloride (0.9 % Sodium Chloride Flush 3 Ml Syringe) 3 ml IVFLUSH QSHIFT [facility] Last Admin: 06/28/25 08:19 Dose: 3 ml Documented By: CODEY Tamsulosin HCl (Tamsulosin Hcl 0.4 Mg Capsule) 0.4 mg PO DAILY [facility] Last Admin: 06/28/25 08:17 Dose: 0.4 mg Documented By: CODEY Tramadol HCl (Tramadol Hcl 50 Mg Tablet) 50 mg PO Q6H PRN PRN Reason: Pain, Moderate(Pain Scale 4-6) Labs 06/28/25 05:52 06/28/25 05:52 Labs: Laboratory Results - last 24 hr 06/28/25 05:52 MCV 90.4 MCH 27.6 MCHC 30.5 L RDW 13.6 Plt Count 188 MPV 9.9 Immature Gran % (Auto) 0.8 H Neut % (Auto) 62.0 Lymph % (Auto) 22.8 [place] % (Auto) 10.0 Eos % (Auto) 3.6 Baso % (Auto) 0.8 Lymph # (Auto) 1.4 [place] # (Auto) 0.6 Eos # (Auto) 0.2 Baso # (Auto) 0.1 Abs Immat Gran (auto) 0.05 H Absolute Neuts (auto) 3.8 Absolute Nucleated RBC 0.000 Nucleated RBC % (auto) 0.0 Anion Gap 12 Estim Creat Clear Calc 21.9 Estimated GFR 17 Random Glucose 92 Calcium 8.4 Magnesium 1.8 Microbiology Microbiology Results: Microbiology 06/26/25 16:48 Blood Culture - Preliminary Blood - Venous No growth after 24 hours. 06/26/25 16:36 Blood Culture - Preliminary Blood - Venous No growth after 24 hours. Assessment and Plan (1) JOSE L (acute kidney injury): Status: Acute (2) Pneumonia: Status: Acute Plan Patient is a 69-year-old male with a past medical history significant for CKD 3, history SBO, schizophrenia, chronic anemia, HLD, TBI, neurogenic bladder and class 3 obesity, who presented to the ED from [facility] due to cough, shortness of breath, malaise, lethargy and congestion for the past 2 days. Acute hypoxic respiratory failure with sepsis secondary to pneumonia - met sepsis with fever and tacycardia; lactic acid WNL - desatting to upper 80s on RA - ceftriaxone and doxycycline, day 3 - has been titrated off oxygen - monitor CBC and BMP JOSE L on CKD3 in the setting of acute urinary retention - CT showing distended urinary bladder with bladder diverticula, postvoid bladder scan showing 529 mL of retained urine - pt with hx of neurogenic bladder - initial creatinine 6.05, now 3.54; baseline 2.2-2.3 - nephrology consulted, recommend: - 1/2 NS at 100 cc/h - check urine for sodium, creatinine, osmolality - keep Bay for 24-48 hours; will attempt voiding trial on 06/29 - keep I>O - UA negative; being covered with abx for pna as above Hypernatremia - secondary to free water deficit in the setting of above - 1/2 NS as above - monitor NA+ Hyperchloremic metabolic acidosis - IVF as above - follow labs Chronic anemia, stable, likely some dilution - monitor CBC Schizophrenia - clozapine, clomipramine HLD - fenofibrate Orthostatic hypotension - hydrocortisone and fludrocortisone Class 3 obesity - weight loss encouraged Full code VTE prophylaxis: Heparin Pt needs continued hospitalization for treatment of sepsis secondary to pneumonia complicated by JOSE L on CKD in the setting of acute urinary retention. Pt's creatinine improving but not yet back to baseline, and he will require continued IVF, IV antibiotics, and close monitoring of labs. Quality Stroke Does the patient have a stroke diagnosis?: No VTE Prior VTE?: No VTE Risk Level:: Medical - moderate - high VTE Device Contraindication: Treatment Not Indicated VTE Drug Contraindication: N/A - Med Ordered
[2025-06-28 15:29] VITALS: BP 135/78; PULSE 99; RESP 18; TEMP 36; O2SAT 94
--- NOTE | 2025-06-28 15:52 | PM.PNNEP ---
Subjective Subjective Date of Service: 06/28/25 Interval history: Events noted. Renal function is improving. Nonoliguric. Physical Exam Vital Signs: Vital Signs: Last Vital Signs Temp 96.8 F 06/28/25 15:29 Pulse 99 06/28/25 15:29 Resp 18 06/28/25 15:29 BP 135/78 06/28/25 15:29 Pulse Ox 94 06/28/25 15:29 O2 Del Method Room Air 06/28/25 15:29 O2 Flow Rate 2 06/27/25 19:19 Oxygen Flow Rate 6 06/26/25 19:15 BMI result Body Mass Index 37.3 Comfortable. Awake. Lungs clear. Extremities no edema. Objective Data Labs 06/28/25 05:52 06/28/25 05:52 Labs: Laboratory Results - last 24 hr 06/28/25 05:52 WBC 6.1 RBC 3.95 L Hgb 10.9 L Hct 35.7 L MCV 90.4 MCH 27.6 MCHC 30.5 L RDW 13.6 Plt Count 188 MPV 9.9 Immature Gran % (Auto) 0.8 H Neut % (Auto) 62.0 Lymph % (Auto) 22.8 [place] % (Auto) 10.0 Eos % (Auto) 3.6 Baso % (Auto) 0.8 Lymph # (Auto) 1.4 [place] # (Auto) 0.6 Eos # (Auto) 0.2 Baso # (Auto) 0.1 Abs Immat Gran (auto) 0.05 H Absolute Neuts (auto) 3.8 Absolute Nucleated RBC 0.000 Nucleated RBC % (auto) 0.0 Sodium 142 Potassium 3.7 Chloride 115 H Carbon Dioxide 19 L Anion Gap 12 BUN 53 H Creatinine 3.54 H Estim Creat Clear Calc 21.9 Estimated GFR 17 Random Glucose 92 Calcium 8.4 Magnesium 1.8 Microbiology Microbiology Results: Microbiology 06/26/25 16:48 Blood - Venous Blood Culture - Preliminary No growth after 24 hours. 06/26/25 16:36 Blood - Venous Blood Culture - Preliminary No growth after 24 hours. Procedures Date of Service Date of Service: 06/28/25 Assessment & Plan Assessment and plan (1) JOSE L (acute kidney injury): Status: Acute (2) Hyperchloremic metabolic acidosis: Status: Acute (3) Neurogenic bladder: Status: Acute Plan JOSE L superimposed on CKD JOSE L due to hypoperfusion and possibel urinary retentino form neurogenic bladder Hypernatremia due to free water deficit Need to r/o Nephrogenic DI given the h/o [place] use in the past Poor PO intake could be contributing as well. Creatinine is improving with hydration Urine for Na, Cr, Osm - ordered Keep intake more than output with 1/2 NS at 100 cc/hr Watch and replace Potassium as needed Follow renal function No indication for dialysis Time Spent With Patient Time: Total time managing care of this patient today ____ minutes. Progress Note: Quality Stroke Does the patient have a stroke diagnosis?: No
[2025-06-28 20:00] VITALS: BP 124/71; PULSE 100; RESP 20; TEMP 36.4; O2SAT 94
[2025-06-28] MEDS: Magnesium Hydrox/Alum Hydrox 30 ML ORAL.SUSP PO (20:47)
[2025-06-29 03:56] VITALS: BP 141/86; PULSE 91; RESP 18; TEMP 36.6; O2SAT 93
[2025-06-29 07:08] VITALS: BP 150/85; PULSE 96; RESP 16; TEMP 36; O2SAT 93
[2025-06-29] MEDS: Ferrous Sulfate 324 MG TABLET.DR PO (07:34)
[2025-06-29] MEDS: 0.9 % Sodium Chloride Flush 3 ML SYRINGE IVFLUSH (07:41)
[2025-06-29] MEDS: Artificial Tears 15 ML DROPS 1 DROP EYE-BOTH ×2 (07:44→23:20)
[2025-06-29 09:03] LABS: MANUAL DIFF FLAG NO
[2025-06-29 09:06] LABS: Hematocrit 34.1 % (42.0-52.0); Hemoglobin 10.7 g/dl (14.0-18.0); Imm Gran Abs Auto 0.11 X10*3/uL (0.00-0.03); Imm Gran Pct Auto 1.3 % (0.0-0.4); Lymphocytes Absolute Auto 2.0 X10*3/uL (1.2-4.9); Mean Corpuscular HGB Conc 31.4 g/dl (31.0-36.0); Mean Corpuscular Hemoglobin 27.4 pg (27.0-33.0); Mean Corpuscular Volume 87.4 fL (80.0-98.0); NRBC Abs Auto 0.000 X10*3/uL (0.0-0.012); NRBC Pct Auto 0.0 /100WBC (0.0-0.2); Platelet Count 192 X10*3/uL (160-400); Red Blood Count 3.90 X10*6/uL (4.60-5.80); White Blood Count 8.8 X10*3/uL (4.8-10.8)
[2025-06-29 09:22] LABS: Anion Gap 13 (12-20); Blood Urea Nitrogen 33 mg/dL (9-16); Calcium 8.8 mg/dL (8.4-10.2); Carbon Dioxide 20 mmol/L (22-29); Chloride 116 mmol/L (96-108); Creatinine Clr Calc Pharmacy 26.4; Estimated Glomerular Filt Rate 21; Magnesium 1.6 mg/dL (1.6-2.6); Potassium 3.2 mmol/L (3.3-5.1); Sodium 146 mmol/L (135-145)
--- NOTE | 2025-06-29 09:45 | PM.PNNEP ---
Subjective Subjective Date of Service: 06/29/25 Interval history: Doing better Renal function is improving. Nonoliguric. Physical Exam Vital Signs: Vital Signs: Last Vital Signs Temp 96.8 F 06/29/25 07:08 Pulse 96 06/29/25 07:08 Resp 16 06/29/25 07:08 BP 150/85 H 06/29/25 07:08 Pulse Ox 93 06/29/25 07:08 O2 Del Method Room Air 06/29/25 07:08 O2 Flow Rate 2 06/27/25 19:19 Oxygen Flow Rate 6 06/26/25 19:15 BMI result Body Mass Index 37.3 General: not in any acute distress, ill appearing Nutritional Appearance: well nourished and overweight Eyes: appearance normal, both eyes and all related structures; Alignment and Position: alignment normal and position normal Neck: No lymphadenopathy, no thyromegaly Resp: bilateral air entry equal, no added sounds present Cardio: Regular rate, regular rhythm; Heart sounds: S1 normal heart sound present and S2 normal heart sound present GI: soft, nontender, no guarding, no hepatosplenomegaly : bladder normal to inspection, bladder normal to palpation, no renal angle tenderness Skin: no rashes or lesions noted and elasticity normal Neuro: alert, oriented x 3, moves all extremities Objective Data Labs 06/29/25 08:36 06/29/25 08:36 Labs: Laboratory Results - last 24 hr 06/28/25 06/29/25 Unknown 08:36 WBC 8.8 RBC 3.90 L Hgb 10.7 L Hct 34.1 L MCV 87.4 MCH 27.4 MCHC 31.4 RDW 13.5 Plt Count 192 MPV 9.7 Immature Gran % (Auto) 1.3 H Neut % (Auto) 63.7 Lymph % (Auto) 23.1 [place] % (Auto) 8.5 Eos % (Auto) 2.8 Baso % (Auto) 0.6 Lymph # (Auto) 2.0 [place] # (Auto) 0.8 Eos # (Auto) 0.3 Baso # (Auto) 0.1 Abs Immat Gran (auto) 0.11 H Absolute Neuts (auto) 5.6 Absolute Nucleated RBC 0.000 Nucleated RBC % (auto) 0.0 Sodium 146 H Potassium 3.2 L Chloride 116 H Carbon Dioxide 20 L Anion Gap 13 BUN 33 H Creatinine 2.93 H Estim Creat Clear Calc 26.4 Estimated GFR 21 Random Glucose 92 Calcium 8.8 Magnesium 1.6 Urine Osmolality 354 L Ur Random Sodium 37.0 Urine Creatinine 66.91 Microbiology Microbiology Results: Microbiology 06/26/25 16:48 Blood - Venous Blood Culture - Preliminary No growth after 48 hours. 06/26/25 16:36 Blood - Venous Blood Culture - Preliminary No growth after 48 hours. Procedures Date of Service Date of Service: 06/29/25 Assessment & Plan Assessment and plan (1) JOSE L (acute kidney injury): Status: Acute (2) Hyperchloremic metabolic acidosis: Status: Acute (3) Neurogenic bladder: Status: Acute (4) Nocturia more than twice per night: Status: Acute Plan JOSE L superimposed on CKD Acute kidney injury possibly secondary to tubular injury obstructive uropathy in the setting of urinary retention from neurogenic component, improving with IV fluids. Creatinine peaked at 6.05, currently trending down well down to 2.83; continue IV fluids. unclear baseline, possibly around 1.7 around 2021, needs renal followup upon discahrge; which is requested. urinalysis clean, 2+ protein needs quantification once JOSE L improves or resolves. mixed anion gap and non anion gap metabolic acidosis: secondary to normal saline infusion and kidney injury improving with correction of renal dysfunction, bicarb 20, gap 13 Hypernatremia: secondary to free water defecit continue half NS at 100cc/hr urine osmol 354, urine sodium 37; less concerning for [place] induced DI. Time Spent With Patient Time: Total time managing care of this patient today ____ minutes. Progress Note: Quality Stroke Does the patient have a stroke diagnosis?: No
--- NOTE | 2025-06-29 10:57 | MHC.CM.PN ---
Addendum entered by Oralia Lee 06/29/25 15:03: PER NEPHRO, PT WILL STAY UNTIL TOMORROW SNF INFORMED Original Note: PER MD ROUNDS, PT MAY BE READY TODAY VS TOMORROW AND MAY DC WITH A F/C SNF UPDATED
[2025-06-29 15:17] VITALS: BP 150/72; PULSE 95; RESP 24; TEMP 36.1; O2SAT 96
--- NOTE | 2025-06-29 16:10 | HO.PM.IMPN ---
Subjective Subjective Date of Service: 06/29/25 Interval History: No acute events overnight Creatinine continues to improve but not quite back to baseline Seen by Nephrology who would like an additional day of monitoring labs Pt without any acute complaints Is eager to go back to facility Review of Systems Review of Systems: Yes all other systems are reviewed and are negative Physical Exam Exam: Exam: General: AOx3, no acute distress Resp: CTA bilaterally CVS: S1, S2, RRR GI: +BS, NT, soft but with chronic distention Skin: Warm, dry : Bay in place draining straw-colored urine Neuro: Cranial nerves II-XII grossly intact bilaterally. Motor grossly intact bilaterally Extremities: No edema Psych: Calm, cooperative Vital Signs: Vital Signs: Last Vital Signs Temp 97 F 06/29/25 15:17 Pulse 95 06/29/25 15:17 Resp 24 H 06/29/25 15:17 BP 150/72 H 06/29/25 15:17 Pulse Ox 96 06/29/25 15:17 O2 Del Method Room Air 06/29/25 15:17 O2 Flow Rate 2 06/27/25 19:19 Oxygen Flow Rate 6 06/26/25 19:15 BMI result Body Mass Index 37.3 Objective Data Active Medications Acetaminophen (Acetaminophen 325 Mg Tablet) 650 mg PO Q6H PRN PRN Reason: Pain, Mild 1-3,fever,headache Last Admin: 06/29/25 15:36 Dose: 650 mg Documented By: CODEY Al Hydroxide/Mg Hydroxide (Magnesium Hydrox/Alum Hydrox 30 Ml Oral.Susp) 30 ml PO Q4H PRN PRN Reason: GI Upset Last Admin: 06/28/25 20:47 Dose: 30 ml Documented By: HERMINIA Albuterol Sulfate (Albuterol Sulfate 90 Mcg 8 Gm Inhaler) 2 puff INHALE Q4H PRN PRN Reason: Wheezing Amlodipine Besylate (Amlodipine Besylate 10 Mg Tablet) 10 mg PO DAILY [facility]; Protocol Last Admin: 06/29/25 07:35 Dose: 10 mg Documented By: CODEY Artificial Tears (Artificial Tears 15 Ml Drops) 1 drop EYE-BOTH BID [facility] Last Admin: 06/29/25 07:44 Dose: 1 drop Documented By: CODEY Ascorbic Acid (Ascorbic Acid 500 Mg Tablet) 500 mg PO DAILY [facility] Last Admin: 06/29/25 07:36 Dose: 500 mg Documented By: CODEY Bisacodyl (Bisacodyl 10 Mg Supp.Rect) 10 mg PA DAILY PRN PRN Reason: Constipation Calcium Carbonate (Calcium Carbonate 750 Mg Tab.Chew) 750 mg PO Q4H PRN PRN Reason: Heartburn Last Admin: 06/28/25 16:18 Dose: 750 mg Documented By: CODEY Ceftriaxone Sodium (Ceftriaxone Sodium 2 Gm Vial) 2 gm IVPUSH Q24H [facility] Last Admin: 06/28/25 22:15 Dose: 2 gm Documented By: HERMINIA Clomipramine HCl (Clomipramine Hcl 25 Mg Capsule) 100 mg PO BEDTIME [facility] Last Admin: 06/28/25 20:41 Dose: 100 mg Documented By: HERMINIA Clozapine (Clozapine 100 Mg Tablet) 100 mg PO DAILY [facility] Last Admin: 06/29/25 07:34 Dose: 100 mg Documented By: CODEY Clozapine (Clozapine 100 Mg Tablet) 200 mg PO BEDTIME [facility] Last Admin: 06/28/25 20:41 Dose: 200 mg Documented By: HERMINIA Docusate Sodium (Docusate Sodium 100 Mg Capsule) 100 mg PO BID [facility] Last Admin: 06/29/25 07:35 Dose: 100 mg Documented By: CODEY Fenofibrate (Fenofibrate 160 Mg Tablet) 160 mg PO DAILY [facility] Last Admin: 06/29/25 07:36 Dose: 160 mg Documented By: CODEY Ferrous Sulfate (Ferrous Sulfate 324 Mg Tablet.Dr) 324 mg PO DAILY [facility] Last Admin: 06/29/25 07:34 Dose: 324 mg Documented By: CODEY Fludrocortisone Acetate (Fludrocortisone Acetate 0.1 Mg Tablet) 0.2 mg PO DAILY [facility] Last Admin: 06/29/25 07:35 Dose: 0.2 mg Documented By: CODEY Gabapentin (Gabapentin 100 Mg Capsule) 200 mg PO TID [facility] Last Admin: 06/29/25 15:36 Dose: 200 mg Documented By: CODEY Guaifenesin (Guaifenesin 200 Mg/10 Ml 10 Ml Liquid) 10 ml PO Q4H PRN PRN Reason: Cough Last Admin: 06/27/25 05:24 Dose: 10 ml Documented By: SAMIR-ISRAEL Heparin Sodium (Porcine) (Heparin Sodium,Porcine 5,000 Unit/Ml Vial) 5,000 unit SUBCUT Q8H [facility] Last Admin: 06/29/25 15:39 Dose: 5,000 unit Documented By: CODEY Hydrocortisone (Hydrocortisone 10 Mg Tablet) 10 mg PO TID [facility] Last Admin: 06/29/25 15:37 Dose: 10 mg Documented By: CODEY Doxycycline Hyclate 100 mg/ (Sodium Chloride) 250 mls @ 166.67 mls/hr IV BID [facility] Last Infusion: 06/29/25 09:11 Dose: Infused Documented By: CODEY Sodium Chloride (Sodium Chloride 0.45 %) 1,000 mls @ 100 mls/hr IVCONT .Q10H [facility] Last Admin: 06/29/25 16:06 Dose: 100 mls/hr Documented By: CODEY Loratadine (Loratadine 10 Mg Tablet) 10 mg PO DAILY PRN PRN Reason: Allergy Symptoms Magnesium Hydroxide (Milk Of Magnesia 30 Ml Oral.Susp) 30 ml PO DAILY PRN PRN Reason: Constipation Melatonin (Melatonin 3 Mg Tablet) 6 mg PO BEDTIME PRN PRN Reason: Insomnia Last Admin: 06/28/25 23:51 Dose: 6 mg Documented By: HERMINIA Multivitamins/Vitamin C (Multivitamin Tablet) 1 tab PO DAILY [facility] Last Admin: 06/29/25 07:34 Dose: 1 tab Documented By: CODEY Omeprazole (Omeprazole 40 Mg Capsule.Dr) 40 mg PO BID@0630,1630 [facility] Last Admin: 06/29/25 15:36 Dose: 40 mg Documented By: CODEY Senna (Sennosides 8.6 Mg Tablet) 8.6 mg PO BID [facility] Last Admin: 06/29/25 07:35 Dose: 8.6 mg Documented By: CODEY Senna (Sennosides 8.6 Mg Tablet) 8.6 mg PO DAILY PRN PRN Reason: Constipation Sodium Chloride (0.9 % Sodium Chloride Flush 3 Ml Syringe) 3 ml IVFLUSH QSHIFT [facility] Last Admin: 06/29/25 15:38 Dose: Not Given Documented By: CODEY Non-Admin Reason: IV Running Tamsulosin HCl (Tamsulosin Hcl 0.4 Mg Capsule) 0.4 mg PO DAILY [facility] Last Admin: 06/29/25 07:35 Dose: 0.4 mg Documented By: CODEY Tramadol HCl (Tramadol Hcl 50 Mg Tablet) 50 mg PO Q6H PRN PRN Reason: Pain, Moderate(Pain Scale 4-6) Labs 06/29/25 08:36 06/29/25 08:36 Labs: Laboratory Results - last 24 hr 06/28/25 06/29/25 Unknown 08:36 MCV 87.4 MCH 27.4 MCHC 31.4 RDW 13.5 Plt Count 192 MPV 9.7 Immature Gran % (Auto) 1.3 H Neut % (Auto) 63.7 Lymph % (Auto) 23.1 [place] % (Auto) 8.5 Eos % (Auto) 2.8 Baso % (Auto) 0.6 Lymph # (Auto) 2.0 [place] # (Auto) 0.8 Eos # (Auto) 0.3 Baso # (Auto) 0.1 Abs Immat Gran (auto) 0.11 H Absolute Neuts (auto) 5.6 Absolute Nucleated RBC 0.000 Nucleated RBC % (auto) 0.0 Anion Gap 13 Estim Creat Clear Calc 26.4 Estimated GFR 21 Random Glucose 92 Calcium 8.8 Magnesium 1.6 Urine Osmolality 354 L Ur Random Sodium 37.0 Urine Creatinine 66.91 Microbiology Microbiology Results: Microbiology 06/26/25 16:48 Blood Culture - Preliminary Blood - Venous No growth after 48 hours. 06/26/25 16:36 Blood Culture - Preliminary Blood - Venous No growth after 48 hours. Assessment and Plan (1) JOSE L (acute kidney injury): Status: Acute (2) Acute hypoxic respiratory failure: Status: Acute (3) Pneumonia: Status: Acute Plan Patient is a 69-year-old male with a past medical history significant for CKD 3, history SBO, schizophrenia, chronic anemia, HLD, TBI, neurogenic bladder and class 3 obesity, who presented [facility] the ED from [facility] due to cough, shortness of breath, malaise, lethargy and congestion for the past 2 days. Acute hypoxic respiratory failure with sepsis secondary to pneumonia - met sepsis with fever and tacycardia; lactic acid WNL - initially desatting to upper 80s on RA - ceftriaxone and doxycycline, day 4 - has been titrated off oxygen - monitor CBC and BMP JOSE L on CKD3 in the setting of acute urinary retention - CT showing distended urinary bladder with bladder diverticula, postvoid bladder scan showing 529 mL of retained urine - pt with hx of neurogenic bladder - initial creatinine 6.05, now 2.93; baseline unknown, possibly 2.2-2.3 - nephrology consulted, recommend: - 1/2 NS at 100 cc/h - urine osmol 354, urine sodium 37; less concerning for [place] induced DI - keep I>O - UA negative; being covered with abx for pna as above - continue tamsulosin, will keep Bay in next 2 weeks; pt will need outpatient f/u with Dr. Castillo in urology for voiding trial Hypernatremia, chronic - secondary to free water deficit in the setting of above - 1/2 NS as above - NA+ now around baseline - monitor NA+ Mixed anion gap and non anion gap metabolic acidosis: - secondary to normal saline infusion and kidney injury - improving with correction of renal dysfunction, bicarb 20, gap 13 Chronic anemia, stable, likely some dilution - monitor CBC Schizophrenia - clozapine, clomipramine HLD - fenofibrate Orthostatic hypotension - hydrocortisone and fludrocortisone Class 3 obesity - weight loss encouraged Full code VTE prophylaxis: Heparin Pt needs continued hospitalization for treatment of sepsis secondary to pneumonia complicated by JOSE L on CKD in the setting of acute urinary retention. Pt's creatinine improving but not yet back to baseline, and he will require continued IVF, IV antibiotics, and close monitoring of labs. Nephrology believe he should be able to be discharged back to facility tomorrow. Quality Stroke Does the patient have a stroke diagnosis?: No VTE Prior VTE?: No VTE Risk Level:: Medical - moderate - high VTE Device Contraindication: Treatment Not Indicated VTE Drug Contraindication: N/A - Med Ordered
[2025-06-29] MEDS: Potassium Chloride Packet 20 MEQ PACKET 40 MEQ PO (18:26)
[2025-06-29 19:47] VITALS: BP 158/87; PULSE 97; RESP 18; TEMP 36.6; O2SAT 95
[2025-06-30 07:21] LABS: Anion Gap 12 (12-20); Blood Urea Nitrogen 26 mg/dL (9-16); Calcium 8.6 mg/dL (8.4-10.2); Carbon Dioxide 21 mmol/L (22-29); Chloride 115 mmol/L (96-108); Creatinine Clr Calc Pharmacy 31.6; Estimated Glomerular Filt Rate 26; Potassium 3.7 mmol/L (3.3-5.1); Sodium 144 mmol/L (135-145)
[2025-06-30 07:22] VITALS: BP 174/84; PULSE 99; RESP 18; TEMP 36.3; O2SAT 95
[2025-06-30] MEDS: Ferrous Sulfate 324 MG TABLET.DR PO (08:47)
--- NOTE | 2025-06-30 10:49 | MHC.CM.PN ---
Per PA, medically cleared for return to LTC @ [facility]. BLS transport scheduled for 130pm. PA, RN and sister/HCP aware.
--- NOTE | 2025-06-30 11:54 | P.DS_ITS ---
DS: Providers Provider Date of Service: 06/30/25 Date of admission: 06/26/25 18:43 Date of discharge: 06/30/25 Primary care physician: Forest Wood DO Consults: 06/26/25 22:56 Consult to Nephrology Routine Consulting Provider: [facility] [place] Reason for consultation: JOSE L on CKD DS: Diagnosis Discharge Diagnosis (1) JOSE L (acute kidney injury): Status: Acute (2) Acute hypoxic respiratory failure: Status: Acute (3) Pneumonia: Status: Acute DS: Summary Hospital Course Hospital Course: From admission HPI: Date of Service: 06/26/25 Attending physician on admission: Cassius Carpio Chief Complaint: lethargy, cough Patient is a 69-year-old male with a past medical history significant for CKD 3, history SBO, schizophrenia, chronic anemia, HLD, TBI, neurogenic bladder and class 3 obesity, who presented to the ED from [facility] due to cough, shortness of breath, malaise, lethargy and congestion for the past 2 days. The patient was initially answering questions appropriately however during this interview the patient was too lethargic to respond. He denied fever or chest pain. When EMS arrived the patient's O2 saturation was in the mid 80s and blood pressure in the low 100s. The patient was reporting that he felt very weak but denied nausea, vomiting or diarrhea. Hospital course Pt was admitted to the hospital for acute hypoxic respiratory failure in the setting of sepsis secondary to pneumonia which was complicated by JOSE L in the setting of acute urinary retention. Pt was initially lethargic and with acute metabolic encephalopathy in the setting of sepsis. pt was treated with IV ceftriaxone and doxycycline to good effect and mentation soon improved back to b aseline. Patient's breathing, cough, and hypoxia also improved. Pt no longer experiencing either SOB or significant cough, and has been weaned off of supplemental oxygen. Pt has a hx of neurogenic bladder follows by Dr. Castillo in Urology, though does not have a chronic indwelling catheter. For acute urinary retention a Bay catheter was inserted and pt was started on tamsulosin. Was seen and evaluated by Nephrology and started on gentle IV fluids of 1/2 NS due to hyponatremia. Kidney function gradually improved and creatinine now nearly back to baseline. Pt has been very eager to go back to his facility. The plan is to discharge back to [facility] with Bay catheter in place. Pt should follow up with Dr. Castillo in Urology in 1-2 weeks for possible voiding trial in the office. Pt has been started on tamsulosin 0.4 mg at bedtime which he should continue until Urology follow up. For JOSE L, pt should follow up with Nephrology in 1-2 weeks. Pt was noted to have proteinuria and will need outpatient workup for that. For pneumonia, pt should take cefuroxime 500 mg b.i.d. and doxycycline 100 mg b.i.d. x2 days, ending on the evening of 07/02. Pt should resume all of his other home medications. See below for additional details concerning hospital stay. Acute hypoxic respiratory failure with sepsis secondary to pneumonia - met sepsis with fever and tacycardia; lactic acid WNL - initially desatting to upper 80s on RA - ceftriaxone and doxycycline, day 4 - has been titrated off oxygen JOSE L on CKD3 in the setting of acute urinary retention - CT showing distended urinary bladder with bladder diverticula, postvoid bladder scan showing 529 mL of retained urine - pt with hx of neurogenic bladder - initial creatinine 6.05, now 2.45; baseline unknown, possibly 2.2-2.3 - nephrology consulted, recommend: - 1/2 NS at 100 cc/h - urine osmol 354, urine sodium 37; less concerning for [place] induced DI - keep I>O - UA negative; being covered with abx for pna as above - continue tamsulosin, will keep Bay in next 2 weeks; pt will need outpatient f/u with Dr. Castillo in urology for voiding trial Hypernatremia, chronic - secondary to free water deficit in the setting of above - recevied 1/2 NS as above - NA+ now around baseline Mixed anion gap and non anion gap metabolic acidosis: - secondary to normal saline infusion and kidney injury - improving with correction of renal dysfunction, bicarb 20, gap 13 Chronic anemia, stable, likely some dilution - monitor CBC Schizophrenia - clozapine, clomipramine HLD - fenofibrate Orthostatic hypotension - hydrocortisone and fludrocortisone Class 3 obesity - weight loss encouraged Time Attestation Discharge Coordination Time (in mins): 38 Quality: Safe Use of Opioids Does Pt have an Active Cancer Diagnosis on the Problem List?: No Quality: Stroke Does the patient have a stroke diagnosis?: No Physical Exam Exam: Exam: General: AOx3, no acute distress Resp: CTA bilaterally CVS: S1, S2, RRR GI: +BS, NT, soft but with chronic distention Skin: Warm, dry : Bay in place draining straw-colored urine Neuro: Cranial nerves II-XII grossly intact bilaterally. Motor grossly intact bilaterally Extremities: No edema Psych: Calm, cooperative, though perseverating about his clothing, especially his shoes Vital Signs: Vital Signs: Last Vital Signs Temp 97.4 F 06/30/25 07:22 Pulse 99 06/30/25 07:22 Resp 18 06/30/25 07:22 BP 174/84 H 06/30/25 07:22 Pulse Ox 95 06/30/25 07:22 O2 Del Method Room Air 06/30/25 07:22 O2 Flow Rate 2 06/27/25 19:19 Oxygen Flow Rate 6 06/26/25 19:15 BMI result Body Mass Index 37.3 DS: Data Data Completed and Pending Labs on day of discharge: Laboratory Results - last 24 hr 06/30/25 06:27 Sodium 144 Potassium 3.7 Chloride 115 H Carbon Dioxide 21 L Anion Gap 12 BUN 26 H Creatinine 2.45 H Estim Creat Clear Calc 31.6 Estimated GFR 26 Random Glucose 94 Calcium 8.6 Preliminary micro results at discharge 06/26/25 16:48 Blood Culture - Preliminary Blood - Venous No growth after 48 hours. 06/26/25 16:36 Blood Culture - Preliminary Blood - Venous No growth after 48 hours. Discharge Plan Discharge Anticipated Discharge Date/Time: 06/30/25 08:16 Patient Disposition: Xfer SNF Discharge Diagnosis: JOSE L on CKD in the setting of acute urinary retention Referrals: Forest Wood DO [Primary Care Provider, Hospitalist] - 1 Week Discharge Medications: New cefuroxime axetil 500 mg tablet 500 mg PO BID Qty: 5 0RF Rx Instructions: Take one tablet twice a day with food for the next 2 days, starting on the evening of 06/30 and ending on the evening of 07/02 doxycycline monohydrate 100 mg capsule 100 mg PO BID Qty: 5 0RF Rx Instructions: Take one tablet twice a day with food for the next 2 days, starting on the evening of 06/30 and ending on the evening of 07/02 tamsulosin 0.4 mg capsule 0.4 mg PO BEDTIME Qty: 90 0RF Rx Instructions: Take one tablet daily at bedtime Continued multivitamin Tablet 1 tab PO DAILY sennosides [senna] 8.6 mg Tablet 8.6 mg PO DAILY PRN (Reason: Constipation) guaifenesin 100 mg/5 mL Liquid 200 mg PO Q4H PRN (Reason: Cough) ascorbic acid (vitamin C) [Vitamin C] 500 mg Tablet 500 mg PO DAILY ferrous sulfate 325 mg (65 mg iron) Tablet 325 mg PO DAILY clomipramine 50 mg capsule 100 mg PO BEDTIME albuterol sulfate 90 mcg/actuation Hfa Aerosol Inhaler 2 puff INHALATION Q4H PRN (Reason: Wheezing) Rx Instructions: Uses with a Spacer/Aero-Holding Chambers Device. fludrocortisone 0.1 mg Tablet 0.2 mg PO DAILY docusate sodium 100 mg Tablet 100 mg PO BID loratadine 10 mg Tablet 10 mg PO DAILY PRN (Reason: Allergy Symptoms) fenofibrate nanocrystallized 145 mg tablet 145 mg PO DAILY bisacodyl 10 mg Suppository 10 mg [place] DAILY PRN (Reason: Constipation) Rx Instructions: If Senna ineffective hydrocortisone 10 mg Tablet 10 mg PO TID sennosides [senna] 8.6 mg Tablet 8.6 mg PO BID clozapine 100 mg tablet 100 mg PO DAILY omeprazole 40 mg capsule,delayed release(DR/EC) 40 mg PO BID@0630,1630 tramadol 50 mg Tablet 50 mg PO TID gabapentin 100 mg capsule 200 mg PO TID alum-mag hydroxide-simeth 200-200-20 mg/5 mL Suspension 30 ml PO Q4H PRN (Reason: GI Upset) Rx Instructions: administer between meals and at bedtime menthol [Bengay Ultra Strength(menthol)] 5 % Adhesive Patch,Medicated 1 patch TOPICAL Q8H PRN (Reason: muscle ache) Rx Instructions: Apply to right shoulder and neck. alfuzosin 10 mg Tablet Extended Release 24 Hr 10 mg PO DAILY Rx Instructions: administer after the same meal each day Artificial Tears (cmc) 1 % Drops 1 drp OPHTHALMIC (EYE) BID Rx Instructions: Both eyes naloxone [Narcan] 4 mg/actuation [place],Non-Aerosol 4 mg INTRANASAL Q3M PRN (Reason: overdose) Rx Instructions: spray 1 dose into ONE nostril; alternate nostrils w each dose until help arrives amlodipine 5 mg tablet 10 mg PO DAILY Protocol: Hold for SBP/HR < HOLD for SBP < : 90 HOLD for HR < : 60 clozapine 200 mg tablet 200 mg PO BEDTIME Discharge Orders: Discharge Order (Routine); Ordered 06/30/25 Ordered By: Denis Abel Activity on Discharge: As tolerated Stand Alone Forms: Patient Portal Discharge page Print Language: Lithuanian Care Plan Goals: See below Health Concerns: Acute hypoxic respiratory failure Pneumonia Sepsis Lethargy JOSE L Acute urinary retention Hypernatremia Plan of Treatment: You were admitted to the hospital for acute hypoxic respiratory failure in the setting of sepsis secondary to pneumonia, as well as JOSE L in the setting of acute urinary retention. You were initially lethargic and altered at time of presentation, but your mentation soon improved back to baseline with treatment with IV antibiotics and supplemental oxygen. Breathing improved and you were eventually weaned off oxygen and no longer have any respiratory complaints. For urinary retention and JOSE L, you were seen and evaluated by Nephrology. You had a Bay inserted, were started on tamsulosin, and given IV fluids. Kidney function slowly improved and your now nearly back to baseline. He has been you were to go back to [facility] the past few days, and are now ready for discharge. -- for pneumonia treatment, take cefuroxime 500 mg twice a day with food and doxycycline 100 mg twice a day with food for the next 2 days, starting on the evening of 06/30 and ending on the evening of 07/02 -- you will be discharged with Bay catheter in place. You should keep the Bay catheter in until outpatient follow up with Dr. Castillo in Urology in 1-2 weeks -- you will be started on tamsulosin 0.4 mg at bedtime for urinary retention. Continue taking until your Urology appointment -- you should follow up with Nephrology in 1-2 weeks for your JOSE L and workup for proteinuria -- you should resume all of your other home meds Assessment: See discharge summary
[2025-06-30 12:42] VITALS: BP 144/85; PULSE 100; RESP 18; TEMP 36.4; O2SAT 99
--- NOTE | 2025-07-01 16:29 | P.CDIM_ITS ---
PROVIDER RESPONSE TEXT: To clarify, the appropriate diagnosis supported by the clinical indicators: Acute QUERY TEXT: PHYSICIAN'S DOCUMENTATION REQUEST Date of Query: 06/28/2025 08:52 AM EDT Patient Name: Lamin Haddad Admit Date: 06/26/2025 Dear Denis JOHNSON, A review of the medical record indicates additional documentation may be needed. Please review below and update the documentation accordingly. Clinical Indicators: Progress notes 06/27/25: hyperchloremic metabolic acidosis. IVF follow labs Clarify which of the following accurately represents the acuity of the metabolic acidosis: Possible options might include: Acute Chronic Other specific Other (explain) Clinically unable to determine (explain) Thank you, Jacquelyn Mathews, CCS, CDIS Use of terms such as suspected, likely, concern for, or probable (associated with a specific diagnosis that is being evaluated, monitored, or treated as if it exists) are acceptable and can be coded in the inpatient setting, when documented at the time of discharge. Please use your independent medical judgment in providing your response. THIS QUERY IS PART OF THE PERMANENT MEDICAL RECORD
== END 2025-06-30 14:20 | disposition skilled nursing facility (03) | DRG 871 ==
LOC: HO.ED 18:21 → HO.EDOVER 18:47 → HO.S3 06-27 15:35
PROVIDERS: Physician Assistant; Admitting Provider Family Medicine; Emergency Provider Emergency Medicine; PCP Hospitalist; Visit Provider Student in an Organized Health Care Education/Training Program
DX: A41.9 Sepsis, unspecified organism (principal); J18.9 Pneumonia, unspecified organism; J96.01 Acute respiratory failure with hypoxia; N17.9 Acute kidney failure, unspecified; E87.21 Acute metabolic acidosis; E87.0 Hyperosmolality and hypernatremia; D63.1 Anemia in chronic kidney disease; E66.813 Obesity, class 3; Z71.3 Dietary counseling and surveillance; Z68.37 Body mass index [BMI] 37.0-37.9, adult; R33.9 Retention of urine, unspecified; I95.1 Orthostatic hypotension; E87.8 Other disorders of electrolyte and fluid balance, not elsewhere classified; N32.3 Diverticulum of bladder; N18.30 Chronic kidney disease, stage 3 unspecified; F20.9 Schizophrenia, unspecified; N31.9 Neuromuscular dysfunction of bladder, unspecified; Z20.822 Contact with and (suspected) exposure to COVID-19; Z87.891 Personal history of nicotine dependence; Z79.899 Other long term (current) drug therapy
CPT/HCPCS: 36415; 70450; 71045; 74176; 80048; 80053; 80076; 81001; 81003; 82570; 82803; 83605; 83735; 83880; 83935; 84300; 84484; 85007; 85025; 85027; 87040; 87502; 87635; 93005; 99285; J0131; J0696; J1271; J1644; J2543

== ENCOUNTER → 2025-06-26 16:33 | Outpatient (BNV) | payer MEDICARE, MEDICAID, SELFPAY | PROVIDERS: Admitting Provider Family Medicine; Emergency Provider Emergency Medicine; Visit Provider Internal Medicine Cardiovascular Disease | DX: I45.10 Unspecified right bundle-branch block (principal); I25.2 Old myocardial infarction; R00.0 Tachycardia, unspecified | CPT/HCPCS: 93010 ==

== ENCOUNTER → 2025-06-26 16:34 | Outpatient (BNV) | payer MEDICARE, MEDICAID, SELFPAY | PROVIDERS: Emergency Provider Emergency Medicine; Visit Provider Radiology Diagnostic Radiology | DX: J90 Pleural effusion, not elsewhere classified (principal); J98.4 Other disorders of lung | CPT/HCPCS: 71045 ==

== ENCOUNTER → 2025-06-26 18:43 | Outpatient (BNV) | payer MEDICARE, MEDICAID, SELFPAY | PROVIDERS: Admitting Provider Family Medicine; Emergency Provider Emergency Medicine; PCP Hospitalist; Visit Provider Internal Medicine Critical Care Medicine | DX: N17.9 Acute kidney failure, unspecified (principal); E87.29 Other acidosis; N31.9 Neuromuscular dysfunction of bladder, unspecified; R35.1 Nocturia | CPT/HCPCS: 99232 ==

== ENCOUNTER → 2025-06-26 18:43 | Outpatient (BNV) | payer MEDICARE, MEDICAID, SELFPAY | PROVIDERS: Admitting Provider Family Medicine; Emergency Provider Emergency Medicine; Visit Provider Physician Assistant | DX: N17.9 Acute kidney failure, unspecified (principal); J18.9 Pneumonia, unspecified organism | CPT/HCPCS: 99223; 99232; 99499 ==

== ENCOUNTER → 2025-06-26 18:43 | Outpatient (BNV) | payer MEDICARE, MEDICAID, SELFPAY | PROVIDERS: Admitting Provider Family Medicine; Emergency Provider Emergency Medicine; Visit Provider Internal Medicine Hypertension Specialist | DX: N17.9 Acute kidney failure, unspecified (principal); E87.29 Other acidosis; N31.9 Neuromuscular dysfunction of bladder, unspecified | CPT/HCPCS: 99223 ==

== ENCOUNTER → 2025-07-31 08:49 | Outpatient (BNVA) | payer MEDICARE, MEDICAID, SELFPAY | PROVIDERS: PCP Hospitalist; Visit Provider Urology | DX: N31.9 Neuromuscular dysfunction of bladder, unspecified (principal); R39.11 Hesitancy of micturition | CPT/HCPCS: 51700; 51798 ==